=== PATIENT | male | born 1955 | race Caucasian/White ===

== ENCOUNTER → 2017-08-16 08:59 | Outpatient (CLI) | payer OTHER, SELFPAY ==
[2017-08-16 10:54] LABS: Microalbumin,Random Urine 39.2 mg/L (NO RANGE EST.); Microalbumin:Creatinine Ratio 13.2 mg/g CRE (<30 mg/g CRE)
[2017-08-16 10:55] LABS: Red Blood Count 5.01 M/mm3 (4.6-6.2); White Blood Count 6.4 K/mm3 (4.4-11.0)
[2017-08-16 10:56] LABS: Absolute Lymphocyte Count 1.86 X10^3/ul (0.83-4.51); Basophil# 0.02 X10^3/uL; Basophil% 0.3 % (0-1); Eosinophil# 0.04 X10^3/uL; Eosinophils% 0.6 % (0-5); Hematocrit 45.2 % (40-54); Hemoglobin 15.2 g/dl (13.0-16.5); Lymphocyte # 1.86 X10^3/ul (4.0); Lymphocyte % 29.3 % (19-41); Mean Corp Hgb Conc 33.6 g/gl (32-36); Mean Corpuscular Hgb 30.3 pg (27.0-32.0); Mean Corpuscular Volume 90.2 fL (80-94); Mean Platelet Vol. 10.3 fl (6.2-12.0); Monocyte# 0.41 X10^3/uL; Monocyte% 6.5 % (0-10); Neutrophil # 4.01 X10^3/uL (2.7-7.7); Neutrophil % 63.1 % (47-70); POSITIVE COUNT NO; POSITIVE DIFFERENTIAL NO; POSITIVE MORPHOLOGY NO; Platelet Count 177 K/mm3 (150-450); RBC Distribution Width CV 13.1 % (11.6-14.6)
[2017-08-16 11:18] LABS: AST(SGOT) 310 U/L (15-37); Alanine Aminotransfer ALT/SGPT 188 U/L (16-61); Albumin, Serum 3.5 g/dL (3.2-5.0); Alkaline Phosphatase 150 U/L (45-117); Anion Gap 11 (5-15); BUN 17 mg/dL (7-18); BUN/Creat Ratio 16.2 RATIO (10-20); Calcium,Total 8.6 mg/dL (8.5-10.1); Chloride 102 mmol/L (98-107); Cholesterol 237 mg/dL (200); Creatinine, Serum 1.05 mg/dL (0.70-1.30); EST Glomerular Filtration Rate 76 mL/min (>60); Est Glom Filt Rate - Afr Amer 91 mL/min (>60); Globulin 3.4 g/dL (2.2-4.2); Glucose 99 mg/dL (74-106); High Density Lipoprotein 27 mg/dL; Potassium 3.7 mmol/L (3.5-5.1); Protein, Total 6.9 g/dL (6.4-8.2); Sodium Level 135 mmol/L (136-145); Triglycerides 1078 mg/dL
[2017-08-16 11:33] LABS: Vitamin D,25 Hydroxy 27.2 ng/mL (29.95-100.01)
== END ==
PROVIDERS: Family Provider Family Medicine; PCP Family Medicine; Visit Provider Family Medicine
DX: Z00.00 Encounter for general adult medical examination without abnormal findings (principal); J44.9 Chronic obstructive pulmonary disease, unspecified; I10 Essential (primary) hypertension; E55.9 Vitamin D deficiency, unspecified
CPT/HCPCS: 36415; 80053; 80061; 82043; 82306; 82570; 84443; 85025

== ENCOUNTER → 2018-02-03 08:20 | Outpatient (CLI) | payer OTHER, SELFPAY ==
[2018-02-03 10:15] LABS: Absolute Lymphocyte Count 2.02 X10^3/ul (0.83-4.51); Absolute Neutrophil Count 2.2 X10^3/uL (2.0-7.7); Basophil# 0.02 X10^3/uL; Basophil% 0.4 % (0-1); Eosinophil# 0.11 X10^3/uL; Eosinophils% 2.3 % (0-5); Hematocrit 46.1 % (40-54); Lymphocyte # 2.02 X10^3/ul (4.0); Lymphocyte % 41.6 % (19-41); Mean Corp Hgb Conc 34.7 g/gl (32-36); Mean Corpuscular Hgb 31.9 pg (27.0-32.0); Mean Platelet Vol. 10.6 fl (6.2-12.0); Monocyte# 0.53 X10^3/uL; Monocyte% 10.9 % (0-10); Neutrophil # 2.16 X10^3/uL (2.7-7.7); Neutrophil % 44.4 % (47-70); POSITIVE COUNT NO; POSITIVE DIFFERENTIAL NO; POSITIVE MORPHOLOGY NO; Platelet Count 216 K/mm3 (150-450); RBC Distribution Width CV 12.8 % (11.6-14.6); RBC Distribution Width SD 42.8 fl (35.1-43.9); Red Blood Count 5.01 M/mm3 (4.6-6.2); White Blood Count 4.9 K/mm3 (4.4-11.0)
[2018-02-03 10:27] LABS: ALB/GLOB Ratio 1.1 RATIO (0.9-2.4); AST(SGOT) 38 U/L (15-37); Alanine Aminotransfer ALT/SGPT 60 U/L (16-61); Albumin, Serum 3.9 g/dL (3.2-5.0); Alkaline Phosphatase 105 U/L (45-117); Anion Gap 7 (5-15); BUN 12 mg/dL (7-18); BUN/Creat Ratio 14.6 RATIO (10-20); Calcium,Total 8.8 mg/dL (8.5-10.1); Chloride 106 mmol/L (98-107); Cholesterol 210 mg/dL (200); Creatinine, Serum 0.82 mg/dL (0.70-1.30); EST Glomerular Filtration Rate 100 mL/min (>60); Est Glom Filt Rate - Afr Amer 121 mL/min (>60); Globulin 3.7 g/dL (2.2-4.2); Glucose 90 mg/dL (74-106); High Density Lipoprotein 50 mg/dL; Protein, Total 7.6 g/dL (6.4-8.2); Sodium Level 139 mmol/L (136-145); Triglycerides 409 mg/dL
[2018-02-04 15:39] LABS: Hemoglobin A1c 5.7 % (4.2-6.3)
[2018-02-06 08:05] LABS: LDL, Direct 120295 104 mg/dL (0-99)
== END ==
PROVIDERS: Family Provider Family Medicine; PCP Family Medicine; Visit Provider Family Medicine
DX: E78.1 Pure hyperglyceridemia (principal)
CPT/HCPCS: 36415; 80053; 80061; 83036; 83721; 85025

== ENCOUNTER → 2018-04-07 07:43 | Outpatient (CLI) | payer MEDICAID, SELFPAY ==
[2018-04-07 07:26] VITALS: BMI 21.4
--- NOTE | 2018-04-07 07:45 | RAD_ITS ---
STUDY: X-RAY - UNILATERAL RIBS ( LEFT ) WITH CHEST REASON FOR EXAM: Male, 62 years old. Left lower rib pain following a recent fall. TECHNIQUE - RIBS: 4 view(s) of the ribs. TECHNIQUE - CHEST: Single PA view of the chest. COMPARISON: Comparison is made with prior chest radiograph dated June 11, 1999. FINDINGS - RIBS: Normal visualized ribs without a demonstrated fracture. FINDINGS - CHEST: Stable blunting of the left costophrenic angle. There is no demonstrated pleural abnormality. Normal size heart. Normal mediastinum and kacie. Normal visualized pulmonary arteries. Normal visualized aortic arch and descending thoracic aorta. Normal visualized thoracic spine. Normal visualized ribs, clavicles, and shoulders. There is no demonstrated abnormality of the visualized soft tissue structures of the upper abdomen. RAD/Ribs Unil 2V No CXR IMPRESSION: RIBS: Normal x-ray examination of the ribs. CHEST: Stable blunting of the left costophrenic angle with mild left basilar atelectasis. Electronically Signed: Fadi Alarcon MD at 8:16 EST Tel [phone], Service support ,
--- NOTE | 2018-04-07 07:45 | RAD_ITS ---
STUDY: X-RAY CHEST REASON FOR EXAM: Male, 62 years old. Left rib pain following a fall. TECHNIQUE: PA and lateral views of the chest. COMPARISON: Comparison is made with prior study dated June 11, 2009. FINDINGS: Stable blunting of the left costophrenic angle. Minimal increased markings at the left lung base suggestive of atelectasis. There is no demonstrated pleural abnormality. Normal size heart. Normal mediastinum and kacie. Normal visualized pulmonary arteries. Normal visualized aortic arch and descending thoracic aorta. Normal visualized thoracic spine. Normal visualized ribs, clavicles, and shoulders. There is no demonstrated abnormality of the visualized soft tissue structures of the upper abdomen. RAD/Chest PA and Lateral IMPRESSION: Stable blunting of the left costophrenic angle with minimal left basilar atelectasis. Electronically Signed: Fadi Alarcon MD at 8:18 EST Tel [phone], Service support ,
--- OUTSIDE RECORDS SUMMARY | 2018-06-02 07:15 | XMS RPT_ITS ---
:1955 Author Organization OHIP Care Team Providers Name Role Phone Brock Fisher Attending Unavailable Parmjit Delaney Referring Unavailable Rhett, Parmjit Primary Care Unavailable Parmjit Delaney Attending Unavailable Parmjit Delaney Primary Care Unavailable Parmjit Delaney Attending Unavailable Rhett, Parmjit Primary Care Unavailable Rory Cabrera Attending Unavailable Parmjit Delaney Referring Unavailable Rory Cabrera Attending Unavailable Rory Cabrera Referring Unavailable Rhett Parmjit Primary Care Unavailable PROBLEMS PROBLEMS DATE TYPE CONDITION / CODE ATTENDING STATUS SOURCE 04/07/2018 Unknown S20.212A - Contusion Rory Cabrera Active [place] of left front wall of Community thorax, initial Hospital encounter / Repository S20.212A(ICD-10) 02/03/2018 Unknown E78.1 - Pure Rhett, Parmjit Active [place] hyperglyceridemia / Community E78.1(ICD-10) Hospital Repository PROCEDURES PROCEDURES No Procedure Records FoundRESULTS RESULTS URGENT CARE VISIT Observed: 04/07/2018 Status: F Source: [place] REPORT 8:29 AM [facility] REPOSITORY [facility] [address] [place] [address] OFFICE VISIT Date of Service: 04/07/18 MR#: [id number] Acct: [id number] Name: FAHAD KIRK Rep #: [id number] : 1955 Provider: Rory CALLE Age/Sex: 62/M Location: [facility] Status: Signed Intake Vital Signs04/07/18 Body Mass Index (BMI) 21.4 04/07/18 Height 5 ft 3 in 04/07/18 Weight: 121 lb 04/07/18 Body Mass Index (BMI) 21.4 04/07/18 Blood Pressure 130/84 H 04/07/18 Respiratory Rate 18 Intake Visit Reasons: RIB PAIN Chief Complaint: Left chest wall discomfort [employer] Required: No Accompanied by: other Is patient in pain?: Yes Allergies No Known Allergies Allergy (Verified 04/07/18 07:25) Medications Amlodipine Besylate [Norvasc] 5 mg PO DAILY 03/30/17 [History Confirmed 04/07/18] Aspirin [Aspirin, Baby] 81 mg PO DAILY@0800 03/30/17 [History Confirmed 04/07/18] Levalbuterol Tartrate [Levalbuterol Tartrate Hfa] 15 gm IH DAILY PRN 03/30/17 [History Confirmed 04/07/18] Levocetirizine Dihydrochloride [Xyzal] 5 mg PO DAILY 03/30/17 [History Confirmed 04/07/18] Magnesium Oxide [Magnesium] 400 mg PO DAILY 03/30/17 [History Confirmed 04/07/18] Potassium Citrate [Potassium Citrate ER] 5 meq PO DAILY 03/30/17 [History Confirmed 04/07/18] Prednisone [Deltasone] 40 mg PO DAILY 5 Days tab 03/30/17 [Rx Confirmed 04/07/18] Rosuvastatin Calcium [Crestor] 20 mg PO DAILY 03/30/17 [History Confirmed 04/07/18] Umeclidinium Hammond Inhaler [Incruse Ellipta] 62.5 mcg IH DAILY PRN 03/30/17 [History Confirmed 04/07/18] [facility] Medical History COPD (chronic obstructive pulmonary disease) (Acute) Chest pain (Acute) Heart disease (Acute) Lung disease (Acute) Shortness of breath (Acute) Hypertension (Chronic) Social History Smoking Status: Current every day smoker alcohol intake: current alcohol intake frequency: 0-2 drinks per day Alcohol type: beer HPI HPI Chief Complaint: Left chest wall discomfort Details: FAHAD KIRK, is a 62 M who presents to the office today for initial evaluation of left chest wall discomfort. Patient states 4 days ago while at home, tripping falling down steps hitting left lateral rib cage. He notes since the date of the fall he has had progressively worsening moderate severe aching discomfort to the left lateral rib cage, and wanted to have evaluated today for to ensure he does not have a broken rib. He notes pain is aggravated to touch with deep inspiration, alleviated minimally with rest and using a pillow to splint the same. He has no complaints of fever, chills, sweats, difficulty breathing/shortness of breath. He notes no other associated symptoms no other alleviating or aggravating factors. ROS Const Constitutional: No other (ROS negative x10 other than as noted above) Exam Const General: cooperative, healthy appearing, no acute distress, uncomfortable Nutritional Appearance: average body habitus Orientation: alert, awake, oriented x3 HENMT Head: normal to inspection Ears: hearing grossly normal bilaterally, external ears normal, TM's normal bilaterally, EAC's normal Nose: external nose normal, nares normal, septum normal, no nasal discharge Face and sinus: normal facial exam, face symmetric Mouth: oral mucosae normal, lip normal, tongue normal Teeth and gingiva: dentition normal, gingiva normal Throat: uvula midline, tonsils normal, posterior oropharynx normal Eyes General: appearance normal, both eyes and all related structures Neck Neck: normal visual inspection, full ROM, no lymphadenopathy, no meningeal signs, supple Neck mass: No Thyroid: thyroid normal Lymphatic: no lymphadenopathy noted Chest Chest palpation AND inspection: normal inspection of the chest, normal palpation of entire chest wall (Except left lateral rib internal grinder tender to palpation), no crepitus, other (See PLAN for x-ray interpretation) Resp Effort AND Inspection: normal respiratory effort, able to speak in complete sentences, symmetric chest movement, no cough Auscultation: Bilateral: Clear to Auscultation Cardio Palpation: normal PMI Rate: tachycardic Rhythm: regular rhythm Heart Sounds: S1 normal, S2 normal, no gallops, no murmurs, no rubs Pulses: radial pulses present GI Inspection: normal to inspection Palpation: soft, not firm, nontender, no guarding Skin General: no rashes or lesions noted, no ecchymosis, no erythema Neuro General: alert, awake, oriented x3, gait normal Cognition: normal cognition Speech: speech normal Gait: normal gait Motor: muscle tone normal throughout Sensory Exam: no sensory deficits noted Psych Appearance: grossly normal Mental Status: mental status grossly normal Mood: congruent mood Affect: normal affect Speech and Movement: speech and movement normal Attitude: cooperative Thought Process: normal Thought Content: normal Judgment: judgment good Assessment AND Plan Problems 1. Contusion of left chest wall S2 Plan 2 view chest x-ray and left rib films today = normal x-ray examination of the ribs and Stable blunting of the left costophrenic angle with mild left basilar atelectasis, per radiologist; radiologist interpretation was reviewed with patient in office today. Rest, ice, Tylenol, cough and deep breathing exercises as reinforced today. Follow-up with PCP on an as-needed basis. Patient states acknowledging understanding all the above. This note was generated with [employer] dictation software. It may contain incorrect words, spelling, and punctuation that were not noted in checking the note before signing. Orders Orders: Coding Level of Care Code Off vis,est,level 4 Diagnoses Contusion of left chest wall S2004/07/18 0829 <Electronically signed by Rory CALLE> Date Rory CALLE Cosigner Signature: Date (if applicable) CC: RIBS UNIL 2V NO Observed: 04/07/2018 Status: F Source: [place] CXR 7:45 AM [facility] REPOSITORY [facility] Imaging Services [address] [place] [address] Ribs Unil 2V No CXR MR#: [id number] Acct: [id number] Name: FAHAD KIRK Rep #: [id number] : 1955 M 62 From: Fadi Alarcon MD PCP: Parmjit Delaney MD Status: REG CLI Study: Ribs Unil 2V No CXR Date of Exam: 04/07/18 Exam# [id number] Ordering Dr: Rory Cabrera PA STUDY: X-RAY - UNILATERAL RIBS ( LEFT ) WITH CHEST REASON FOR EXAM: Male, 62 years old. Left lower rib pain following a recent fall. TECHNIQUE - RIBS: 4 view(s) of the ribs. TECHNIQUE - CHEST: Single PA view of the chest. COMPARISON: Comparison is made with prior chest radiograph dated June 11, 1999. FINDINGS - RIBS: Normal visualized ribs without a demonstrated fracture. FINDINGS - CHEST: Stable blunting of the left costophrenic angle. There is no demonstrated pleural abnormality. Normal size heart. Normal mediastinum and kacie. Normal visualized pulmonary arteries. Normal visualized aortic arch and descending thoracic aorta. Normal visualized thoracic spine. Normal visualized ribs, clavicles, and shoulders. There is no demonstrated abnormality of the visualized soft tissue structures of the upper abdomen. RAD/Ribs Unil 2V No CXR IMPRESSION: RIBS: Normal x-ray examination of the ribs. CHEST: Stable blunting of the left costophrenic angle with mild left basilar atelectasis. Electronically Signed: Fadi Alarcon MD at 8:16 EST Tel [phone], Service support , CC: Parmjit Delaney MD; Rory CALLE Senior Fund Accountant: Signed CHEST PA AND LATERAL Observed: 04/07/2018 Status: F Source: [place] 7:45 AM [facility] REPOSITORY [facility] Imaging Services [address] [place] [address] Chest PA and Lateral MR#: [id number] Acct: [id number] Name: FAHAD KIRK Rep #: [id number] : 1955 M 62 From: Fadi Alarcon MD PCP: Parmjit Delaney MD Status: REG CLI Study: Chest PA and Lateral Date of Exam: 04/07/18 Exam# [id number] Ordering Dr: Rory Cabrera STUDY: X-RAY CHEST REASON FOR EXAM: Male, 62 years old. Left rib pain following a fall. TECHNIQUE: PA and lateral views of the chest. COMPARISON: Comparison is made with prior study dated June 11, 2009. FINDINGS: Stable blunting of the left costophrenic angle. Minimal increased markings at the left lung base suggestive of atelectasis. There is no demonstrated pleural abnormality. Normal size heart. Normal mediastinum and kacie. Normal visualized pulmonary arteries. Normal visualized aortic arch and descending thoracic aorta. Normal visualized thoracic spine. Normal visualized ribs, clavicles, and shoulders. There is no demonstrated abnormality of the visualized soft tissue structures of the upper abdomen. RAD/Chest PA and Lateral IMPRESSION: Stable blunting of the left costophrenic angle with minimal left basilar atelectasis. Electronically Signed: Fadi Alarcon MD at 8:18 EST Tel [phone], Service support , CC: Parmjit Delaney MD; Rory CALLE Senior Fund Accountant: Signed HEMOGLOBIN A1C Collected: 02/04/2018 Status: F Source: [place] 8:22 AM [facility] REPOSITORY Order Comment: PLEASE ADD A1C TO BLOOD DRAWN 02/03/18 PER TYPE CODE TESTS RESULT OUT OF RANGE REFERENCE UNITS LAB L501.9985 4.2-6.3 % Normal HGB A1C 5.7 Performed By: #### L501.9985 #### [facility] [address] [place], [address] LDL, DIRECT Collected: 02/04/2018 Status: F Source: [place] 8:22 AM [facility] REPOSITORY Order Comment: PLEASE ADD DLDL TO BLOOD DRAWN 02/03/18 PER . YELLOW TOP DRAWN XTRA WITH LAB DRAW TYPE CODE TESTS RESULT OUT OF REFERENCE UNITS RANGE LAB L3300.4500 0-99 mg/dL High LDL,DIR 104 532339 Result Comment: Performed at: - [facility] [address] [id number] Photo Lab Technician: Aquilino Gómez PhD, Phone: [phone] LAB L3300.8706 . Normal Test not COMMENT performed Performed By: #### L3300.4490 #### [facility] (refer to report for specific site) refer to report for address and phone number CBC W/DIFF, AUTOMATED Collected: 02/03/2018 Status: F Source: [place] 8:22 AM [facility] REPOSITORY TYPE CODE TESTS RESULT OUT OF RANGE REFERENCE UNITS LAB L100.1000 4.4-11.0 K/mm3 Normal WBC 4.9 LAB L100.1200 4.6-6.2 M/mm3 Normal RBC 5.01 LAB L100.1300 13.0-16.5 g/dl Normal HGB 16.0 LAB L100.1400 40-54 % Normal HCT 46.1 LAB L100.1500 80-94 fL Normal MCV 92.0 LAB L100.1600 27.0-32.0 pg Normal MCH 31.9 LAB L100.1700 32-36 g/gl Normal MCHC 34.7 LAB L100.1810 11.6-14.6 % Normal RDW CV 12.8 LAB L100.1820 35.1-43.9 fl Normal RDW SD 42.8 LAB L100.1900 150-450 K/mm3 Normal PLT 216 LAB L100.2000 6.2-12.0 fl Normal MPV 10.6 LAB L100.2100 47-70 % Low NEUT% 44.4 LAB L100.2200 19-41 % High LY% 41.6 LAB L100.2300 0-10 % High MONO% 10.9 LAB L100.2400 0-5 % Normal EO% 2.3 LAB L100.2500 0-1 % Normal BASO% 0.4 LAB L100.2550 0.0-0.9 % Normal IM GRAN % 0.400 Result Comment: IG% - Immature Granulocytes (promyelocytes, myelocytes and metamyelocytes) > 1% indicates that a LEFT SHIFT is Present. LAB L100.2620 2.0-7.7 X10 3/uL Normal Absolute Neut 2.2 LAB L100.2720 0.83-4.51 X10 3/ul Normal Absolute Lymph 2.02 Performed By: #### L100.0100 #### [facility] [address] [place], [place] [address]s[place]. [place], [place], [address] COMPREHENSIVE METABOLIC Collected: 02/03/2018 Status: F Source: [facility] 8:22 AM [facility] REPOSITORY TYPE CODE TESTS RESULT OUT OF RANGE REFERENCE UNITS LAB L501.0100 74-106 mg/dL Normal GLU 90 Result Comment: Please note revised GLUCOSE reference range effective 2017. LAB L501.1000 7-18 mg/dL Normal BUN 12 LAB L501.1100 0.70-1.30 mg/dL Normal CREAT,SERUM 0.82 Result Comment: The validity of the calculated GFR AND GFRAA in patients over 70 years has not been determined. Clinical correlation is essential. LAB L501.1110 >60 mL/min Normal EST GFR 100 Result Comment: Non- GFR Calc LAB L501.1115 >60 mL/min Normal EST GFR - AA 121 Result Comment: GFR Calc LAB L501.1300 10-20 RATIO Normal BUN/CRE 14.6 LAB L501.1500 6.4-8.2 g/dL T Normal PROT 7.6 LAB L501.1800 3.2-5.0 g/dL Normal ALB 3.9 LAB L501.1950 2.2-4.2 g/dL Normal GLOB 3.7 LAB L501.2000 0.9-2.4 RATIO Normal A/G 1.1 LAB L501.2200 8.5-10.1 mg/dL CA Normal 8.8 LAB L501.4100 15-37 U/L High AST 38 LAB L501.4305 45-117 U/L Normal ALK P 105 LAB L501.4405 16-61 U/L Normal ALT 60 LAB L501.4600 0.20-1.00 mg/dL T Normal BILI 0.40 LAB L501.5300 136-145 mmol/L NA Normal 139 LAB L501.5600 3.5-5.1 mmol/L K Normal 4.0 LAB L501.5900 98-107 mmol/L CL Normal 106 LAB L501.6100 21.0-32.0 mmol/L Normal CO2 26.0 LAB L501.6200 5-15 Normal GAP 7 Performed By: #### L500.4050, L500.4100 #### [facility] [address] [place], [address] LIPID PROFILE Collected: 02/03/2018 Status: F Source: [place] 8:22 AM [facility] REPOSITORY TYPE CODE TESTS RESULT OUT OF RANGE REFERENCE UNITS LAB L501.4900 200 mg/dL High CHOL 210 Result Comment: <200 mg/dL Desirable 200-240 mg/dL Borderline >240 mg/dL High Risk LAB L501.5000 mg/dL High TRIG 409 Result Comment: The drugs N-Acetylcysteine and Metamizole may falsely depress this assay. TRIGLYCERIDE IS GREATER THAN 400 mg/dL. LDL RESULT IS INVALID AND WILL NOT BE REPORTED. Serum Triglycerides Reference Interval Normal <150 mg/dL Borderline high 150 - 199 mg/dL High 200 - 499 mg/dL Very High > or = 500 mg/dL LAB L501.6400 mg/dL Normal HDL 50 Result Comment: The drugs N-Acetylcysteine and Metamizole may falsely depress this assay. Reference Range HDL <40 mg/dL Low HDL Cholesterol HDL >or= 60 mg/dL High HDL Cholesterol LAB L501.6500 0-130 mg/dL Test Normal not performed LDL LAB L501.6600 5-40 mg/dL Test Normal not performed VLDL Performed By: #### L500.4050, L500.4100 #### [facility] [address] [place], [address] MICROALB:CREAT Collected: 08/16/2017 Status: F Source: [place] RATIO,RANDOM UR 9:00 AM [facility] REPOSITORY Order Comment: Order Date: 05/27/17 Order Info: 0779-1 - MIACRE TYPE CODE TESTS RESULT OUT OF RANGE REFERENCE UNITS LAB L501.1200 NO RANGE EST. mg/dL Normal UR CREAT 297.00 LAB L502.0500 NO RANGE EST. mg/L Normal 39.2 MICROALBUMIN ,UR LAB L502.0600 <30 mg/g CRE mg/g CRE Normal 13.2 MALB:CREAT Performed By: #### L502.0250, L100.0100, L500.4050, L500.4100, L501.9520, L506.1000 #### [facility] [address] [place], [address] CBC W/DIFF, AUTOMATED Collected: 08/16/2017 Status: F Source: [place] 9:00 AM [facility] REPOSITORY Order Comment: Order Date: 05/27/17 Order Info: 0184-1 - CBCD TYPE CODE TESTS RESULT OUT OF RANGE REFERENCE UNITS LAB L100.1000 4.4-11.0 K/mm3 Normal WBC 6.4 LAB L100.1200 4.6-6.2 M/mm3 Normal RBC 5.01 LAB L100.1300 13.0-16.5 g/dl Normal HGB 15.2 LAB L100.1400 40-54 % Normal HCT 45.2 LAB L100.1500 80-94 fL Normal MCV 90.2 LAB L100.1600 27.0-32.0 pg Normal MCH 30.3 LAB L100.1700 32-36 g/gl Normal MCHC 33.6 LAB L100.1810 11.6-14.6 % Normal RDW CV 13.1 LAB L100.1820 35.1-43.9 fl Normal RDW SD 43.0 LAB L100.1900 150-450 K/mm3 Normal PLT 177 LAB L100.2000 6.2-12.0 fl Normal MPV 10.3 LAB L100.2100 47-70 % Normal NEUT% 63.1 LAB L100.2200 19-41 % Normal LY% 29.3 LAB L100.2300 0-10 % Normal MONO% 6.5 LAB L100.2400 0-5 % Normal EO% 0.6 LAB L100.2500 0-1 % Normal BASO% 0.3 LAB L100.2550 0.0-0.9 % Normal IM GRAN % 0.200 Result Comment: IG% - Immature Granulocytes (promyelocytes, myelocytes and metamyelocytes) > 1% indicates that a LEFT SHIFT is Present. LAB L100.2620 2.0-7.7 X10 3/uL Normal Absolute Neut 4.0 LAB L100.2720 0.83-4.51 X10 3/ul Normal Absolute Lymph 1.86 Performed By: #### L502.0250, L100.0100, L500.4050, L500.4100, L501.9520, L506.1000 #### [facility] [address] [place], [address] COMPREHENSIVE METABOLIC Collected: 08/16/2017 Status: F [facility] REPOSITORY Order Comment: Order Date: 05/27/17 Order Info: [id number] - CMP Order Info: [id number] - LIPID Order Info: 3016-3 - TSH TYPE CODE TESTS RESULT OUT OF RANGE REFERENCE UNITS LAB L501.0100 74-106 mg/dL Normal GLU 99 Result Comment: Please note revised GLUCOSE reference range effective 2017. LAB L501.1000 7-18 mg/dL Normal BUN 17 LAB L501.1100 0.70-1.30 mg/dL Normal CREAT,SERUM 1.05 Result Comment: The validity of the calculated GFR AND GFRAA in patients over 70 years has not been determined. Clinical correlation is essential. LAB L501.1110 >60 mL/min Normal EST GFR 76 Result Comment: Non- GFR Calc LAB L501.1115 >60 mL/min Normal EST GFR - AA 91 Result Comment: GFR Calc LAB L501.1300 10-20 RATIO Normal BUN/CRE 16.2 LAB L501.1500 6.4-8.2 g/dL T Normal PROT 6.9 LAB L501.1800 3.2-5.0 g/dL Normal ALB 3.5 LAB L501.1950 2.2-4.2 g/dL Normal GLOB 3.4 LAB L501.2000 0.9-2.4 RATIO Normal A/G 1.0 LAB L501.2200 8.5-10.1 mg/dL CA Normal 8.6 LAB L501.4100 15-37 U/L High AST 310 Result Comment: Slight Hemolysis, Result may be falsely increased. LAB L501.4305 45-117 U/L High ALK P 150 LAB L501.4405 16-61 U/L High ALT 188 Result Comment: Please note revised ALT reference range effective 2017. LAB L501.4600 0.20-1.00 mg/dL Normal T BILI 0.50 LAB L501.5300 136-145 mmol/L Low NA 135 LAB L501.5600 3.5-5.1 mmol/L Normal K 3.7 Result Comment: Slight Hemolysis, Result may be falsely increased. LAB L501.5900 98-107 mmol/L Normal CL 102 LAB L501.6100 21.0-32.0 mmol/L Normal CO2 22.0 LAB L501.6200 5-15 Normal GAP 11 Performed By: #### L502.0250, L100.0100, L500.4050, L500.4100, L501.9520, L506.1000 #### [facility] [address] [place], [address] LIPID PROFILE Collected: 08/16/2017 Status: F Source: [place] 9:00 AM [facility] REPOSITORY Order Comment: Order Date: 05/27/17 Order Info: [id number] - CMP Order Info: [id number] - LIPID Order Info: 3016-3 - TSH TYPE CODE TESTS RESULT OUT OF RANGE REFERENCE UNITS LAB L501.4900 200 mg/dL High CHOL 237 Result Comment: <200 mg/dL Desirable 200-240 mg/dL Borderline >240 mg/dL High Risk LAB L501.5000 mg/dL High TRIG 1078 Result Comment: The drugs N-Acetylcysteine and Metamizole may falsely depress this assay. Serum Triglycerides Reference Interval Normal <150 mg/dL Borderline high 150 - 199 mg/dL High 200 - 499 mg/dL Very High > or = 500 mg/dL LAB L501.6400 mg/dL Low HDL 27 Result Comment: The drugs N-Acetylcysteine and Metamizole may falsely depress this assay. Reference Range HDL <40 mg/dL Low HDL Cholesterol HDL >or= 60 mg/dL High HDL Cholesterol LAB L501.6500 0-130 mg/dL Test Normal not performed LDL LAB L501.6600 5-40 mg/dL Test Normal not performed VLDL Performed By: #### L502.0250, L100.0100, L500.4050, L500.4100, L501.9520, L506.1000 #### [facility] [address] [place], [address] THYROID STIM HORMONE Collected: 08/16/2017 Status: F Source: [place] (TSH) 9:00 [facility] REPOSITORY Order Comment: Order Date: 05/27/17 Order Info: [id number] - CMP Order Info: [id number] - LIPID Order Info: 3016-3 - TSH TYPE CODE TESTS RESULT OUT OF RANGE REFERENCE UNITS LAB L501.9520 0.358-3.74 uIU/mL Normal TSH 3.60 Performed By: #### L502.0250, L100.0100, L500.4050, L500.4100, L501.9520, L506.1000 #### [facility] [address] [place], [address] VITAMIN D,25 HYDROXY Collected: 08/16/2017 Status: F Source: [place] 9:00 AM [facility] REPOSITORY Order Comment: Order Date: 05/27/17 Order Info: [id number] - VITD25 TYPE CODE TESTS RESULT OUT OF REFERENCE UNITS RANGE LAB L506.1000 29.95-100.01 ng/mL Low Vitamin D 27.2 25-OH Result Comment: Vitamin D 25(OH) Status Range Deficiency <20 ng/mL (50nmol/L) Insuffciency 20 - 30 ng/mL (50 - 75 nmol/L) Sufficiency 30 - 100 ng/mL (75 - 250 nmol/L) Toxicity >100 ng/mL (>250 nmol/L) Performed By: #### L502.0250, L100.0100, L500.4050, L500.4100, L501.9520, L506.1000 #### [facility] [address] [place], [place], [address] URGENT CARE VISIT Observed: 05/18/2017 Status: F Source: [place] REPORT 8:45 AM [facility]ORY [facility] [address] [place] [address] [address] [place] [address] OFFICE VISIT Date of Service: 05/18/17 MR#: [id number] Acct: [id number] Name: FAHAD KIRK Rep #: [id number] : 1955 Provider: Brock CALLE Age/Sex: 61/M Location: [facility] Status: Signed Intake Vital Signs05/18/17 Height 5 ft 3 in 05/18/17 Weight: 121 lb 05/18/17 Body Mass Index (BMI) 21.4 Intake Visit Reasons: FLU, COUGH Allergies No Known Allergies Allergy (Verified 05/18/17 08:14) Medications Amlodipine Besylate [Norvasc] 5 mg PO DAILY 03/30/17 [History Confirmed 05/18/17] Aspirin [Aspirin, Baby] 81 mg PO DAILY@0800 03/30/17 [History Confirmed 05/18/17] Levalbuterol Tartrate [Levalbuterol Tartrate Hfa] 15 gm IH DAILY PRN 03/30/17 [History Confirmed 05/18/17] Levocetirizine Dihydrochloride [Xyzal] 5 mg PO DAILY 03/30/17 [History Confirmed 05/18/17] Magnesium Oxide [Magnesium] 400 mg PO DAILY 03/30/17 [History Confirmed 05/18/17] Potassium Citrate [Potassium Citrate ER] 5 meq PO DAILY 03/30/17 [History Confirmed 05/18/17] Prednisone [Deltasone] 40 mg PO DAILY 5 Days tab 03/30/17 [Rx Confirmed 05/18/17] Rosuvastatin Calcium [Crestor] 20 mg PO DAILY 03/30/17 [History Confirmed 05/18/17] Umeclidinium Hammond [Incruse Ellipta] 62.5 mcg IH DAILY PRN 03/30/17 [History Confirmed 05/18/17] amoxicillin 875 mg-potassium clavulanate 125 mg tablet 1 tab PO Q12H 10 Days #20 tab 05/18/17 [Rx Confirmed 05/18/17] [facility] Medical History Sinusitis, acute (Acute) COPD (chronic obstructive pulmonary disease) (Acute) Chest pain (Acute) Heart disease (Acute) Lung disease (Acute) Shortness of breath (Acute) Hypertension (Chronic) Social History Smoking Status: Current every day smoker alcohol intake: current alcohol intake frequency: 0-2 drinks per day Alcohol type: beer HPI FLU, COUGH: Details: FAHAD KIRK, is a 61 M who presents to the office today for concern for possible flu and/or sinus infection. Patient states that for the past 5 days he has had chills, sweats and body aches. He also reports having sinus pressure/pain and sinus headache which is somewhat relieved with Tylenol. Patient states that the symptoms have worsened over the past 5 days and is concerned as he has COPD. He is currently being treated for COPD by his podiatry assistant however does not want his infection to travel into his chest. He denies chest pain, shortness of breath or difficulty breathing. No nausea, vomiting, diarrhea. No other associated symptoms or alleviating/aggravating factors. ROS Const Constitutional: Positive for fever(s), chills, headache(s) and body ache; no night sweats or abnormal sleep pattern ENT ENT: Positive for headache(s), nasal congestion, sinus pressure, sinus pain and nasal discharge; no ear pain Resp Respiratory: No cough or shortness of breath Cardio Cardiology: No shortness of breath, irregular heart rhythm or fast heart rate Neuro Neurology: Positive for headache(s); no confusion Psych Psychiatric: No abnormal sleep pattern, No confusion Exam Const General: cooperative HENMT Head: normal to inspection Ears: hearing grossly normal bilaterally Nose: nasal discharge purulent Face and sinus: sinus tenderness frontal and maxillary Mouth: oral mucosae normal Throat: abnormal tonsil bilaterally, postnasal drainage Resp Effort AND Inspection: normal respiratory effort Auscultation: Bilateral: Clear to Auscultation Cardio Rate: regular rate Rhythm: regular rhythm Neuro General: alert, CN's II-XI intact bilaterally Psych Appearance: grossly normal Mental Status: mental status grossly normal Results BMSFLUAB Office Flu A AND B Negative FLU A AND B Last Edit by LUC Soto on 05/18/17 08:44 Assessment AND Plan Problems 1. Acute non-recurrent frontal sinusitis J01.10; J01.10 Status Acute Plan Negative flu test. Encouraged to get plenty of rest, drink lots of clear liquids, and use Tylenol or Ibuprofen (unless contraindicated) for fever and comfort. Patient also educated on other symptomatic management techniques. To be seen in 7-10 days if no improvement; sooner if worsening of symptoms. Patient advised of potential red flags and when appropriate report to the ED. Patient verbalized understanding of all the above. Orders Orders: Medications New: Coding Level of Care Code Off vis,new,level 3 Diagnoses Acute non-recurrent frontal sinusitis J01.10; J01.10 Sinusitis location: frontal Recurrence: non-recurrent 05/18/17 0845 <Electronically signed by Brock CALLE> Date Brock CALLE Cosigner Signature: Date (if applicable) CC: ALLERGIES ALLERGIES DATE TYPE / CODE NAME / CODE REACTION SEVERITY SOURCE 04/07/[address] [facility] Allergy/4160 Allergies/F00 [facility] [address](SNOMED [id number](RXNOR Repository CT) M) ENCOUNTERS ENCOUNTERS ADMIT/DISCHARGE ACCOUNT ADMITTING ENCOUNTER LOCATION SOURCE NUMBER CLASS 04/07/2018 [id number] [place] 0 [facility] ing:HPRAD Repository 04/07/2018/ [id number] Ambulatory BMSBuilding:B A[place] 8 0 [facility] Repository 02/03/2018 [id number] Ambulatory [place] 2 [facility] ing:MFPLAB Repository 08/16/2017 [id number] Ambulatory [place] A[place] 3 [facility] ing:MFPLAB Repository 05/18/2017/ [id number] Ambulatory BMSBuilding:Karlos Rowan 8 8 MS.NOW [facility]ly [facility] Repository PAYERS PAYERS ENCOUNTER GUARANTOR PAYER SUBSCRIBER SOURCE 04/07/2018 FAHAD Gaxiola Primary FAHAD Rowan [id number] Insurance:CARESOURCEP ABERNATHYDOB: Community GERRY olicy Number: [id number] [id number] Repository , [place] [address]Wxm: Date:2018-04-[address]ATTN: CLAIMS () [place] [address]FM: 04/07/2018 Secondary NOT GIVENUNK A[place] Insurance:SELF PAY [facility] Number: Effective Repository Date:2018-04-07 04/07/2018 FAHAD Gaxiola Primary FAHAD Rowan [id number] Insurance:CARESOURCEP ABERNATHYDOB: [facility]ly [facility] Number: [id number] [facility] [id number] Repository , [place] [address]Jnx: Date:2018-04-07[address]ATTN: CLAIMS () [place] [address]OF: 04/07/2018 Secondary NOT GIVENUNK [place] Insurance:SELF PAY [facility] Number: Effective Repository Date:2018-04-07 02/03/2018 FAHAD Gaxiola Primary FAHAD Rowan [id number] Insurance:AULTCAREPol ABERNATHYDOB: Community GERRY icy Number: [id number] Hospital [id number] Repository , [place] [address]Pge: Date:2703-18-79[address] [place] [address] () [phone]: 02/03/2018 Secondary NOT GIVENUNK [place] Insurance:SELF PAY [facility] Number: Effective Repository Date:2018-02-03 08/16/2017 FAHAD Gaxiola Primary FAHAD Rowan [id number] Insurance:AULTCAREPol ABERNATHYDOB: Community GERRY icy Number: [id number] Hospital [id number] Repository , [place] [address]Iuq: Date:7466-60-61E[phone] [place] [address] -8 () [address]UW: 08/16/2017 Secondary NOT GIVENUNK [place] Insurance:SELF PAY [facility] Number: Effective Repository Date:2017-08-16 05/18/2017 FAHAD W Primary FAHAD W [place] [id number] Insurance:AULTCAREPol ABERNATHYDOB: Community GERRY icy Number: [id number] Hospital [id number] Repository , [place] [address]Kdb: Date:9059-54-85[phone] [address], [place] -8 () [phone]: 05/18/2017 Secondary NOT GIVENUNK A[place] Insurance:SELF PAY [facility] Number: Effective Repository Date:2017-05-18
== END ==
PROVIDERS: Family Provider Family Medicine; PCP Family Medicine; Referring Provider Physician Assistant; Visit Provider Physician Assistant
DX: S20.212A Contusion of left front wall of thorax, initial encounter (principal)
CPT/HCPCS: 71046; 71100

== ENCOUNTER → 2018-06-06 11:19 | Outpatient (CLI) | payer MEDICAID, SELFPAY ==
[2018-04-07 07:26] VITALS: BMI 21.4
--- NOTE | 2018-06-06 11:41 | RAD_ITS ---
STUDY: X-RAY LEFT FOOT, FIRST TOE REASON FOR EXAM: Male, 62 years old. Hip great toe against a door jam 2 weeks ago. History of prior fractures. TECHNIQUE: 3 view(s) of the toe were obtained. COMPARISON: None. FINDINGS: Normal visualized metatarsus. Normal metatarsophalangeal (M.T.P) joint. Normal interphalangeal joint. Normal phalanges. There is no visualized fracture or dislocation. The soft tissue structures are unremarkable. RAD/Toe(s) Min 2 Views IMPRESSION: No acute fracture or dislocation. Electronically Signed: Ant Busch DO at 12:44 EST Tel [phone], Service support ,
== END ==
LOC: MTLAB 11:21 → MTRAD 11:40
PROVIDERS: Family Provider Family Medicine; PCP Family Medicine; Referring Provider Family Medicine; Visit Provider Family Medicine
DX: M79.675 Pain in left toe(s) (principal)
CPT/HCPCS: 73660

== ENCOUNTER → 2018-07-12 09:13 | Outpatient (CLI) | payer MEDICARE, BC, SELFPAY ==
[2018-04-07 07:26] VITALS: BMI 21.4
[2018-07-12 09:56] LABS: Absolute Lymphocyte Count 1.99 X10^3/ul (0.83-4.51); Absolute Neutrophil Count 3.7 X10^3/uL (2.0-7.7); Basophil# 0.02 X10^3/uL; Basophil% 0.3 % (0-1); Eosinophil# 0.12 X10^3/uL; Eosinophils% 1.8 % (0-5); Hematocrit 47.7 % (40-54); Hemoglobin 15.7 g/dl (13.0-16.5); Lymphocyte # 1.99 X10^3/ul (4.0); Lymphocyte % 30.6 % (19-41); Mean Corp Hgb Conc 32.9 g/gl (32-36); Mean Corpuscular Hgb 30.6 pg (27.0-32.0); Mean Platelet Vol. 9.8 fl (6.2-12.0); Monocyte# 0.66 X10^3/uL; Monocyte% 10.1 % (0-10); Neutrophil % 56.9 % (47-70); POSITIVE COUNT NO; POSITIVE DIFFERENTIAL NO; POSITIVE MORPHOLOGY NO; Platelet Count 306 K/mm3 (150-450); RBC Distribution Width CV 13.4 % (11.6-14.6); RBC Distribution Width SD 45.6 fl (35.1-43.9); Red Blood Count 5.13 M/mm3 (4.6-6.2); White Blood Count 6.5 K/mm3 (4.4-11.0)
[2018-07-12 10:31] LABS: PTHIN 34.9 pg/mL (18.4-80.1)
[2018-07-12 10:35] LABS: ALB/GLOB Ratio 1.3 RATIO (0.9-2.4); AST(SGOT) 22 U/L (15-37); Alanine Aminotransfer ALT/SGPT 28 U/L (16-61); Albumin, Serum 4.1 g/dL (3.2-5.0); Alkaline Phosphatase 120 U/L (45-117); Anion Gap 12 (5-15); BUN 7 mg/dL (7-18); BUN/Creat Ratio 9.5 RATIO (10-20); Calcium,Total 8.8 mg/dL (8.5-10.1); Chloride 103 mmol/L (98-107); Cholesterol 182 mg/dL (200); Creatinine, Serum 0.73 mg/dL (0.70-1.30); EST Glomerular Filtration Rate 114 mL/min (>60); Est Glom Filt Rate - Afr Amer 138 mL/min (>60); Globulin 3.2 g/dL (2.2-4.2); Glucose 100 mg/dL (74-106); High Density Lipoprotein 50 mg/dL; Protein, Total 7.3 g/dL (6.4-8.2); Sodium Level 141 mmol/L (136-145); Thyroid Stim Hormone (TSH) 3.35 uIU/mL (0.358-3.74); Triglycerides 265 mg/dL; Uric Acid 6.5 mg/dL (3.5-7.2); Very Low Density Lipoprotein 53 mg/dL (5-40)
== END ==
PROVIDERS: Family Provider Family Medicine; PCP Family Medicine; Referring Provider Family Medicine; Visit Provider Family Medicine
DX: M81.8 Other osteoporosis without current pathological fracture (principal); M25.472 Effusion, left ankle; E78.5 Hyperlipidemia, unspecified; I10 Essential (primary) hypertension
CPT/HCPCS: 36415; 80053; 80061; 82306; 83970; 84443; 84550; 85025

== ENCOUNTER → 2018-07-21 09:05 | Outpatient (CLI) | payer MEDICARE, BC, SELFPAY ==
[2018-04-07 07:26] VITALS: BMI 21.4
--- NOTE | 2018-07-21 09:11 | CDU_ITS ---
Reason For Study: dizziness Rt. Velocities/BP Lt. Velocities/BP Prox CCA 76.2/11.7 cm/sec. Prox CCA 90.9/16.4 cm/sec. Mid CCA 53.4/12.9 cm/sec. Mid CCA 105/22.9 cm/sec. Dist CCA 59.2/12.9 cm/sec. Dist CCA 87.4/20.5 cm/sec. Prox ICA 95.6/28.1 cm/sec. Prox ICA 75.0/22.3 cm/sec. Mid ICA 104/28.7 cm/sec. Mid ICA 101/27.6 cm/sec. Dist ICA 79.7/24.0 cm/sec. Dist ICA 82.1/24.6 cm/sec. Rt. ICA/CCA = 1.9. Lt. ICA/CCA = 1.0. Prox ECA 230/35.4 cm/sec. Prox ECA 106/14.7 cm/sec. Rt. Vert. 58.9/14.1 cm/sec. Lt. Vert. 55.7/16.4 cm/sec. Right Extracranial There is heterogeneous, irregular atherosclerotic plaque noted in the right common carotid artery. There is heterogeneous, irregular atherosclerotic plaque noted in the right internal carotid artery. There is heterogeneous, irregular atherosclerotic plaque noted in the right external carotid artery. Antegrade flow is noted in the right vertebral artery. Left Extracranial There is heterogeneous, irregular atherosclerotic plaque noted in the left common carotid artery. There is heterogeneous, irregular atherosclerotic plaque noted in the left internal carotid artery. There is heterogeneous, irregular atherosclerotic plaque noted in the left external carotid artery. Antegrade flow is noted in the left vertebral artery. Procedure Carotid Duplex 88951. The exam was diagnostic. Exam performed in department. Interpretation Summary The degree of stenosis in the right internal carotid artery appears to approach 50%. However, acoustic shadowing obscures visualization of a portion of the lumen of the proximal right internal carotid artery. Therefore, the degree of stenosis may be more severe, and an alternative imaging modality may be helpful. Clinical correlation is advised. Mild (<50%) stenosis left extracranial internal carotid. Flow within the vertebral arteries is antegrade bilaterally. Elevated velocities are noted in the right external carotid artery, suggesting the presence of stenosis >50%. Ordering Physician: Parmjit Delaney Performed By: Denny Santo RVT
--- NOTE | 2018-07-21 09:47 | BD_ITS ---
STUDY: DUAL ENERGY X-RAY ABSORPTIOMETRY / DXA REASON FOR EXAM: Male, 62 years old. Loss of height. TECHNIQUE: Bone Mineral Density (BMD) measurements of lumbar spine and bilateral hips were obtained. COMPARISON: Comparison is made with prior examination December 19, 2013. FINDINGS: Lumbar Spine (L1-L4): g/cm2 (1.088) / T-score (-0.9) / Z-score (-0.5) Findings are suggestive of normal bone density with a low fracture risk. Left Femur Total: g/cm2 (0.761) / T-score (-2.4) / Z-score (-1.8) Left Femoral Neck: g/cm2 (0.692) / T-score (-2.9) / Z-score (-1.8) Right Femur Total: g/cm2 (0.740) / T-score (-2.5) / Z-score (-2.0) Right Femoral Neck: g/cm2 (0.666) / T-score (-3.1) / Z-score (-2.0) The T-Scores on the most recent prior examination were: Lumbar Spine (L1-L4): There has been improvement of bone density since the previous examination. Left Femur Total: which represents a worsening of 6.7%. Right Femur Total: which represents a worsening of 4.5%. BD/Dexa Bone Density Study IMPRESSION: The patient is considered osteoporotic as outlined below according to World Roger Organization (WHO) criteria with a high fracture risk. There has been worsening of bone density since the previous examination. Reference Information: The T-score is the number of standard deviations above or below the standard which is normal for young adults at their peak bone mineral density. The World Health Organization (WHO) interprets the T-scores as follows: Above -1 Normal bone density Between -1 and -2.5 Osteopenia Equal to / or below -2.5 Osteoporosis As a practical clinical guideline, osteopenia may be graded as follows: Mild -1 through -1.5 Moderate -1.6 through -2.0 Severe -2.1 through -2.4 The Z-score is the number of standard deviations above or below age-matched controls. A Z-score of less than -1.5 would be considered abnormal. References: 1. NIH Osteoporosis and Related Bone Diseases http://www.osteo.org 2. International Society for Clinical Densitometry http://www.iscd.org 3. National Osteoporosis Foundation http://www.nof.org Electronically Signed: Fadi Alarcon, at 10:24 EDT , Service support ,
== END ==
PROVIDERS: Family Provider Family Medicine; PCP Family Medicine; Referring Provider Family Medicine; Visit Provider Family Medicine
DX: R42 Dizziness and giddiness (principal); M81.8 Other osteoporosis without current pathological fracture
CPT/HCPCS: 77080; 93880

== ENCOUNTER → 2018-08-10 15:42 | Outpatient (CLI) | payer MEDICARE, BC, SELFPAY ==
[2018-04-07 07:26] VITALS: BMI 21.4
--- NOTE | 2018-08-10 15:44 | CT_ITS ---
STUDY: CTA OF THE BRAIN REASON FOR EXAM: Male, 63 years old. Suspected carotid stenosis. RADIATION DOSAGE (If Supplied By Facility): CTDIvol = ( 24.96 ) mGy, DLP = ( 1467.67 ) mGycm TECHNIQUE: CT angiography was performed with a multi-detector CT scanner. Data acquisition was obtained from the skull base through the vertex following intravenous administration of 100 IV Isovue 370. MIP images were reconstructed from the axial data set. Post-processing of the angiographic images was performed, with multiplanar reformation and 3D reconstruction. Individualized dose optimization techniques were used for this CT. COMPARISON: None. FINDINGS: Normal bilateral petrous carotid arteries. There is calcified plaque formation of the right cavernous carotid artery, without a cross-sectional luminal stenosis. There is calcified plaque formation of the left cavernous carotid artery, without a cross-sectional luminal stenosis. Normal right A1 segments of the anterior cerebral artery. Normal left A1 segments of the anterior cerebral artery. Normal intact anterior communicating artery (ACOM). Normal bilateral A2 segments of the anterior cerebral arteries. Normal right M1 and M2 segments of the middle cerebral arteries, with a normal M1 bifurcation. Normal left M1 and M2 segments of the middle cerebral arteries, with a normal M1 bifurcation. Normal right posterior communicating artery (PCOM). Normal left posterior communicating artery (PCOM). Normal bilateral vertebral arteries. Normal basilar artery with a normal basilar bifurcation. The visualized bilateral superior cerebellar (SCA) arteries are normal. Normal bilateral P1, P2 and visualized P3 segments of the posterior cerebral arteries. There is no demonstrated aneurysm of the [place]. Right maxillary sinus retention cyst versus polyp. IMPRESSION: No demonstrated aneurysm or hemodynamically significant stenosis. Electronically Signed: Bo Emery, at 6:14 EDT Tel , Service support , STUDY: CTA NECK WITH CONTRAST REASON FOR EXAM: Male, 63 years old. Suspected carotid stenosis RADIATION DOSAGE (If Supplied By Facility): CTDIvol = ( 24.96 ) mGy, DLP = ( 1467.67 ) mGycm TECHNIQUE: CT angiography with multi-detector data acquisition was performed from the aortic arch to the skull base following intravenous administration of 100 IV Isovue 370. MIP images were reconstructed from the axial data set. Post-processing of the angiographic images was performed, with multiplanar reformation and 3D reconstruction. Individualized dose optimization techniques were used for this CT. COMPARISON: None. FINDINGS: AORTIC ARCH: There is atherosclerotic calcific plaque formation of the aortic arch and great vessels arising from the aortic arch, without a hemodynamically significant stenosis. There is a normal origin of the brachiocephalic, left common carotid, and left subclavian arteries. RIGHT CAROTID ARTERIES: There is atherosclerotic plaque formation of the common carotid artery, but without a hemodynamically significant stenosis. There is moderate atherosclerotic plaque formation with moderate narrowing of the right carotid bulb. There is mild atherosclerotic plaque formation of the origin of the right internal carotid artery with less than 50% cross sectional diameter stenosis. Normal visualized cervical portion of the right internal carotid artery. There is moderate atherosclerotic plaque formation of the origin of the right external carotid artery with an estimated stenosis of 50-69% stenosis. LEFT CAROTID ARTERIES: There is atherosclerotic plaque formation of the common carotid artery, but without a hemodynamically significant stenosis. There is moderate atherosclerotic plaque formation with moderate narrowing of the carotid bulb. There is moderate atherosclerotic plaque formation of the origin of the left internal carotid artery with an estimated stenosis of 50-69% stenosis. Normal visualized cervical portion of the left internal carotid artery. There is mild atherosclerotic plaque formation of the origin of the left external carotid artery with less than 50% cross sectional diameter stenosis. VERTEBRAL ARTERIES: Normal bilateral vertebral arteries. CT/CTA Head W/WO Contrast IMPRESSION: Diffuse atherosclerotic disease of the carotid arteries. There is 50-69% stenosis on the left. Less than 50% stenosis on the right. There is a moderate size noncalcified plaque within the proximal right internal carotid artery. Electronically Signed: oB Emery, at 6:15 EDT Tel , Service support ,
--- NOTE | 2018-08-10 15:44 | CT_ITS ---
STUDY: CTA OF THE BRAIN REASON FOR EXAM: Male, 63 years old. Suspected carotid stenosis. RADIATION DOSAGE (If Supplied By Facility): CTDIvol = ( 24.96 ) mGy, DLP = ( 1467.67 ) mGycm TECHNIQUE: CT angiography was performed with a multi-detector CT scanner. Data acquisition was obtained from the skull base through the vertex following intravenous administration of 100 IV Isovue 370. MIP images were reconstructed from the axial data set. Post-processing of the angiographic images was performed, with multiplanar reformation and 3D reconstruction. Individualized dose optimization techniques were used for this CT. COMPARISON: None. FINDINGS: Normal bilateral petrous carotid arteries. There is calcified plaque formation of the right cavernous carotid artery, without a cross-sectional luminal stenosis. There is calcified plaque formation of the left cavernous carotid artery, without a cross-sectional luminal stenosis. Normal right A1 segments of the anterior cerebral artery. Normal left A1 segments of the anterior cerebral artery. Normal intact anterior communicating artery (ACOM). Normal bilateral A2 segments of the anterior cerebral arteries. Normal right M1 and M2 segments of the middle cerebral arteries, with a normal M1 bifurcation. Normal left M1 and M2 segments of the middle cerebral arteries, with a normal M1 bifurcation. Normal right posterior communicating artery (PCOM). Normal left posterior communicating artery (PCOM). Normal bilateral vertebral arteries. Normal basilar artery with a normal basilar bifurcation. The visualized bilateral superior cerebellar (SCA) arteries are normal. Normal bilateral P1, P2 and visualized P3 segments of the posterior cerebral arteries. There is no demonstrated aneurysm of the [place]. Right maxillary sinus retention cyst versus polyp. IMPRESSION: No demonstrated aneurysm or hemodynamically significant stenosis. Electronically Signed: Bo Emery, at 6:14 EDT Tel , Service support , STUDY: CTA NECK WITH CONTRAST REASON FOR EXAM: Male, 63 years old. Suspected carotid stenosis RADIATION DOSAGE (If Supplied By Facility): CTDIvol = ( 24.96 ) mGy, DLP = ( 1467.67 ) mGycm TECHNIQUE: CT angiography with multi-detector data acquisition was performed from the aortic arch to the skull base following intravenous administration of 100 IV Isovue 370. MIP images were reconstructed from the axial data set. Post-processing of the angiographic images was performed, with multiplanar reformation and 3D reconstruction. Individualized dose optimization techniques were used for this CT. COMPARISON: None. FINDINGS: AORTIC ARCH: There is atherosclerotic calcific plaque formation of the aortic arch and great vessels arising from the aortic arch, without a hemodynamically significant stenosis. There is a normal origin of the brachiocephalic, left common carotid, and left subclavian arteries. RIGHT CAROTID ARTERIES: There is atherosclerotic plaque formation of the common carotid artery, but without a hemodynamically significant stenosis. There is moderate atherosclerotic plaque formation with moderate narrowing of the right carotid bulb. There is mild atherosclerotic plaque formation of the origin of the right internal carotid artery with less than 50% cross sectional diameter stenosis. Normal visualized cervical portion of the right internal carotid artery. There is moderate atherosclerotic plaque formation of the origin of the right external carotid artery with an estimated stenosis of 50-69% stenosis. LEFT CAROTID ARTERIES: There is atherosclerotic plaque formation of the common carotid artery, but without a hemodynamically significant stenosis. There is moderate atherosclerotic plaque formation with moderate narrowing of the carotid bulb. There is moderate atherosclerotic plaque formation of the origin of the left internal carotid artery with an estimated stenosis of 50-69% stenosis. Normal visualized cervical portion of the left internal carotid artery. There is mild atherosclerotic plaque formation of the origin of the left external carotid artery with less than 50% cross sectional diameter stenosis. VERTEBRAL ARTERIES: Normal bilateral vertebral arteries. CT/CTA Neck W/WO Contrast IMPRESSION: Diffuse atherosclerotic disease of the carotid arteries. There is 50-69% stenosis on the left. Less than 50% stenosis on the right. There is a moderate size noncalcified plaque within the proximal right internal carotid artery. Electronically Signed: Bo Emery, at 6:15 EDT Tel , Service support ,
== END ==
PROVIDERS: Family Provider Family Medicine; PCP Family Medicine; Referring Provider Family Medicine; Visit Provider Family Medicine
DX: I65.29 Occlusion and stenosis of unspecified carotid artery (principal)
CPT/HCPCS: 70496; 70498; Q9967

== ENCOUNTER → 2018-09-22 07:22 | Outpatient (CLI) | payer MEDICARE, BC, SELFPAY ==
[2018-08-17 14:16] VITALS: BMI 21.4
--- NOTE | 2018-09-22 07:25 | CT_ITS ---
STUDY: LOW DOSE CT LUNG CANCER SCREENING REASON FOR EXAM: Male, 63 years old. 100 year history of smoking. RADIATION DOSAGE (If Supplied By Facility): CTDIvol = ( 2.01 ) mGy, DLP = ( 71.48 ) mGycm TECHNIQUE: No contrast was administered. Low dose technique was utilized (average mAS-38 and kVp 120). 1.25 mm axial source images with a slice interval of 1.25-mm were reconstructed in lung windows. 2.5 mm axial source images with a slice interval of 2.5-mm were reconstructed in lung windows. 5.0 mm axial source images with a slice interval of 5.0-mm were reconstructed in soft tissue windows. Nodule measured using lung windows on PACS and/or independent workstation with automated measurement of minimum and maximum diameter. Nodule measurement reported as average diameter rounded to the nearest whole number. Growth is defined as an increase ins size of greater than 1.5 mm. COMPARISON: None. NODULES: No suspicious nodules are seen. Total lung nodules (excluding granulomas): Emphysema: Mild emphysematous changes. Elevation of the left hemidiaphragm. There is pleural parenchymal changes at the left lung base most likely representing scarring. Endobronchial lesion: Aorta: Atherosclerotic calcific plaques. Coronary arteries: Coronary artery calcification. Heart: Unremarkable. Mediastinal nodes: Other chest and abdominal findings: CT/Low Dose CT Lung Screening IMPRESSION: Lung-RADS category 2 - Continue annual screening with LDCT in 12 months. IMPORTANT NOTES FOR USE: ACR Lung-RADS Version 1.0 Assessment Categories Release Date: September 04, 2013 Category: Coded 0-4 bases on nodule(s) with highest degree of suspicion. Negative screen is defined as categories 1 and 2; a positive screen is defined as categories 3 and 4. Category 3 and 4A nodules that are unchanged on interval CT should be coded as category 2, and individuals returned to screening in 12 months. Category 4X: Category 3 or 4 nodules with additional imaging findings that increase the suspicion of lung cancer, such as spiculation, GGN that doubles in size in 1 year, enlarged lymph notes, etc. Category Modifiers: S (significant finding unrelated to lung cancer) and C (prior history of treated lung cancer) may be added to the 0-4 Lung-RADS Electronically Signed: Fadi Alarcon, at 8:34 EDT , Service support ,
--- NOTE | 2018-09-22 07:34 | US_ITS ---
PROCEDURES: ULTRASOUND AORTA REASON FOR EXAM: Male, 63 years old. Screening for abdominal aortic aneurysm. TECHNIQUE: Ultrasound evaluation of the aorta was performed with real-time and static martinez-scale imaging. COMPARISON: None. FINDINGS: There is no elongation or tortuosity of the abdominal aorta. Aorta measures: Proximal 1.5 cm. Middle 1.7 cm. Distal 1.1 cm. Aorta measure transversely: Proximal 1.9 cm. Middle 1.6 cm. Distal 1.3 cm. The common iliac arteries were obscured due to overlying bowel gas. There is no demonstrated aneurysm.. US/Aorta IMPRESSION: Normal abdominal aorta. Electronically Signed: Fadi Alarocn, at 8:31 EDT , Service support ,
== END ==
PROVIDERS: Family Provider Family Medicine; PCP Family Medicine; Referring Provider Family Medicine; Visit Provider Family Medicine
DX: Z13.6 Encounter for screening for cardiovascular disorders (principal); Z12.2 Encounter for screening for malignant neoplasm of respiratory organs; I10 Essential (primary) hypertension; Z87.891 Personal history of nicotine dependence
CPT/HCPCS: 76775; G0297

== ENCOUNTER → 2019-04-19 16:00 | Outpatient (CLI) | payer MEDICARE, BC, SELFPAY ==
[2018-08-17 14:16] VITALS: BMI 21.4
[2019-04-19 16:04] LABS: Lyme Ab Screen Interpretation REF LAB
[2019-04-19 17:54] LABS: Absolute Lymphocyte Count 2.43 X10^3/uL (0.83-4.51); Basophil# 0.03 X10^3/uL; Basophil% 0.4 % (0-1); Eosinophil# 0.06 X10^3/uL; Eosinophils% 0.7 % (0-5); Hematocrit 45.9 % (40-54); Hemoglobin 15.8 g/dL (13.0-16.5); Lymphocyte # 2.43 X10^3/ul (4.0); Lymphocyte % 30.1 % (19-41); Mean Corp Hgb Conc 34.4 g/dL (32-36); Mean Corpuscular Hgb 31.6 pg (27.0-32.0); Mean Corpuscular Volume 91.8 fL (80-94); Mean Platelet Vol. 10.4 fl (6.2-12.0); Monocyte# 0.53 X10^3/uL; Monocyte% 6.6 % (0-10); NRBC Flagged by Analyzer 0 % (0-5); Neutrophil # 4.98 X10^3/uL (2.7-7.7); Neutrophil % 61.8 % (47-70); Platelet Count 238 K/mm3 (150-450); RBC Distribution Width CV 12.6 % (11.6-14.6); RBC Distribution Width SD 42.5 fl (35.1-43.9); White Blood Count 8.1 K/mm3 (4.4-11.0)
[2019-04-19 18:22] LABS: Vitamin B12 349 pg/mL (211-911)
[2019-04-19 18:51] LABS: ALB/GLOB Ratio 1.3 RATIO (0.9-2.4); AST(SGOT) 188 U/L (15-37); Alanine Aminotransfer ALT/SGPT 212 U/L (16-61); Albumin, Serum 4.4 g/dL (3.2-5.0); Alkaline Phosphatase 161 U/L (45-117); Anion Gap 10 (5-15); BUN 8 mg/dL (7-18); BUN/Creat Ratio 8.9 RATIO (10-20); Calcium,Total 8.8 mg/dL (8.5-10.1); Chloride 103 mmol/L (98-107); Cholesterol 218 mg/dL (200); EST Glomerular Filtration Rate 90 mL/min (>60); Est Glom Filt Rate - Afr Amer 109 mL/min (>60); Globulin 3.5 g/dL (2.2-4.2); Glucose 120 mg/dL (74-106); High Density Lipoprotein 50 mg/dL; Magnesium 2.3 mg/dL (1.6-2.6); Potassium 3.4 mmol/L (3.5-5.1); Protein, Total 7.9 g/dL (6.4-8.2); Sodium Level 138 mmol/L (136-145); Triglycerides 651 mg/dL
[2019-04-20 13:31] LABS: Hemoglobin A1c 5.5 % (4.2-6.3)
[2019-04-25 16:07] LABS: Vitamin B1, Thiamine 250.2 nmol/L (66.5-200.0)
[2019-04-25 16:25] LABS: Lyme Scn Total Ab w/Rflx <0.91 ISR (0.00-0.90)
== END ==
PROVIDERS: Family Provider Family Medicine; PCP Family Medicine; Referring Provider Family Medicine; Visit Provider Family Medicine
DX: Z00.00 Encounter for general adult medical examination without abnormal findings (principal); J44.9 Chronic obstructive pulmonary disease, unspecified; E78.5 Hyperlipidemia, unspecified; F10.20 Alcohol dependence, uncomplicated; R25.2 Cramp and spasm
CPT/HCPCS: 36415; 80053; 80061; 82607; 82746; 83036; 83735; 84425; 85025; 86618

== ENCOUNTER → 2019-07-13 07:41 | Outpatient (CLI) | payer MEDICARE, BC, SELFPAY ==
[2018-08-17 14:16] VITALS: BMI 21.4
--- NOTE | 2019-07-13 07:42 | CDU_ITS ---
Reason For Study: carotid stenosis Rt. Velocities/BP Lt. Velocities/BP Prox CCA 74.7/14.7 cm/sec. Prox CCA 97.4/20.0 cm/sec. Mid CCA 64.3/14.7 cm/sec. Mid CCA 108.7/20.0 cm/sec. Dist CCA 55.2/10.8 cm/sec. Dist CCA 77.7/18.8 cm/sec. Prox ICA 113.8/35.3 cm/sec. Prox ICA 91.3/21.2 cm/sec. Mid ICA 133.9/33.4 cm/sec. Mid ICA 107.2/27.4 cm/sec. Dist ICA 72.8/22.5 cm/sec. Dist ICA 90.0/21.2 cm/sec. Rt. ICA/CCA = 2.1. Lt. ICA/CCA = 1.0. Prox ECA 176.9/24.1 cm/sec. Prox ECA 139.4/20.6 cm/sec. Rt. Vert. 49.5/11.4 cm/sec. Lt. Vert. 56.9/16.3 cm/sec. Right Extracranial There is heterogeneous, irregular atherosclerotic plaque noted in the right common carotid artery. There is heterogeneous, irregular atherosclerotic plaque noted in the right internal carotid artery. There is heterogeneous, irregular atherosclerotic plaque noted in the right external carotid artery. Antegrade flow is noted in the right vertebral artery. Left Extracranial There is heterogeneous, irregular atherosclerotic plaque noted in the left common carotid artery. There is heterogeneous, irregular atherosclerotic plaque noted in the left internal carotid artery. There is heterogeneous, irregular atherosclerotic plaque noted in the left external carotid artery. Antegrade flow is noted in the left vertebral artery. Procedure Carotid Duplex 71714. The exam was diagnostic. Exam performed in department. Interpretation Summary Irregular plague at the proximal right internal and external carotid arteries. 50-69% stenosis right internal carotid <50% stenosis right external carotid Irregular calcific plague left mid common carotid, proximal right internal and external carotids <50% stenosis left internal carotid <50% stenosis left external carotid Patent, antegrade vertebrals bilaterally Ordering Physician: Cayden Price Performed By: Denny Santo RVT
== END ==
PROVIDERS: PCP Family Medicine; Referring Provider Surgery; Visit Provider Surgery
DX: I65.23 Occlusion and stenosis of bilateral carotid arteries (principal)
CPT/HCPCS: 93880

== ENCOUNTER → 2019-11-17 08:15 | Outpatient (CLI) | payer MEDICARE, BC, SELFPAY ==
[2018-08-17 14:16] VITALS: BMI 21.4
[2019-11-17 09:57] LABS: Absolute Lymphocyte Count 2.18 X10^3/uL (0.83-4.51); Absolute Neutrophil Count 4.4 X10^3/uL (2.0-7.7); Basophil# 0.03 X10^3/uL; Basophil% 0.4 % (0-1); Eosinophil# 0.24 X10^3/uL; Eosinophils% 3.2 % (0-5); Hematocrit 46.5 % (40-54); Hemoglobin 15.8 g/dL (13.0-16.5); Lymphocyte # 2.18 X10^3/ul (4.0); Lymphocyte % 29.2 % (19-41); Mean Corpuscular Hgb 32.2 pg (27.0-32.0); Mean Corpuscular Volume 94.9 fL (80-94); Mean Platelet Vol. 10.1 fl (6.2-12.0); Monocyte# 0.55 X10^3/uL; Monocyte% 7.4 % (0-10); NRBC Flagged by Analyzer 0 % (0-5); Neutrophil # 4.44 X10^3/uL (2.7-7.7); Neutrophil % 59.5 % (47-70); Platelet Count 228 K/mm3 (150-450); RBC Distribution Width CV 12.8 % (11.6-14.6); White Blood Count 7.5 K/mm3 (4.4-11.0)
[2019-11-17 10:17] LABS: Vitamin D,25 Hydroxy 15.2 ng/mL
[2019-11-17 10:28] LABS: ALB/GLOB Ratio 1.1 RATIO (0.9-2.4); AST(SGOT) 69 U/L (15-37); Alanine Aminotransfer ALT/SGPT 83 U/L (16-61); Albumin, Serum 4.1 g/dL (3.2-5.0); Alkaline Phosphatase 126 U/L (45-117); Anion Gap 7 (5-15); BUN 7 mg/dL (7-18); BUN/Creat Ratio 8.9 RATIO (10-20); Calcium,Total 8.5 mg/dL (8.5-10.1); Chloride 105 mmol/L (98-107); Cholesterol 190 mg/dL (200); Creatinine, Serum 0.79 mg/dL (0.70-1.30); EST Glomerular Filtration Rate 105 mL/min (>60); Est Glom Filt Rate - Afr Amer 127 mL/min (>60); Globulin 3.6 g/dL (2.2-4.2); Glucose 104 mg/dL (74-106); High Density Lipoprotein 44 mg/dL; PSA,Total - Annual Screen 0.44 ng/mL (0.00-4.00); Potassium 3.7 mmol/L (3.5-5.1); Protein, Total 7.7 g/dL (6.4-8.2); Sodium Level 138 mmol/L (136-145); Thyroid Stim Hormone (TSH) 3.48 uIU/mL (0.358-3.74); Triglycerides 442 mg/dL
[2019-11-17 10:37] LABS: PTHIN 72.3 pg/mL (18.4-80.1)
== END ==
PROVIDERS: PCP Family Medicine; Referring Provider Family Medicine; Visit Provider Family Medicine
DX: Z00.00 Encounter for general adult medical examination without abnormal findings (principal); M81.8 Other osteoporosis without current pathological fracture; E78.5 Hyperlipidemia, unspecified; Z12.5 Encounter for screening for malignant neoplasm of prostate
CPT/HCPCS: 36415; 80053; 80061; 82306; 83970; 84153; 84443; 85025; G0103

== ENCOUNTER → 2019-11-29 13:22 | Outpatient (CLI) | payer MEDICARE, BC, SELFPAY ==
[2018-08-17 14:16] VITALS: BMI 21.4
--- NOTE | 2019-11-29 13:24 | CT_ITS ---
STUDY: LOW DOSE CT LUNG CANCER SCREENING REASON FOR EXAM: Male, 64 years old. 50 pack-year smoking history. RADIATION DOSAGE (If Supplied By Facility): CTDIvol = ( 3.02 ) mGy, DLP = ( 111.74 ) mGycm TECHNIQUE: No contrast was administered. Low dose technique was utilized (average mAS-38 and kVp 120). 1.25 mm axial source images with a slice interval of 1.25-mm were reconstructed in lung windows. 2.5 mm axial source images with a slice interval of 2.5-mm were reconstructed in lung windows. 5.0 mm axial source images with a slice interval of 5.0-mm were reconstructed in soft tissue windows. Nodule measured using lung windows on PACS and/or independent workstation with automated measurement of minimum and maximum diameter. Nodule measurement reported as average diameter rounded to the nearest whole number. Growth is defined as an increase ins size of greater than 1.5 mm. COMPARISON: September 22, 2018. NODULES: Total lung nodules (excluding granulomas): 0 Emphysema: There is diffuse emphysematous changes. Endobronchial lesion: None Aorta: Stable atherosclerotic changes without aneurysm. Coronary arteries: Stable coronary artery calcifications. Heart: Normal in size. Pulmonary artery: Normal Mediastinal nodes: None Other chest and abdominal findings: Degenerative changes of the thoracic spine. CT/Low Dose CT Lung Screening IMPRESSION: Lung-RADS category 1 - Continue annual screening with LDCT in 12 months. IMPORTANT NOTES FOR USE: ACR Lung-RADS Version 1.0 Assessment Categories Release Date: September 04, 2013 Category: Coded 0-4 bases on nodule(s) with highest degree of suspicion. Negative screen is defined as categories 1 and 2; a positive screen is defined as categories 3 and 4. Category 3 and 4A nodules that are unchanged on interval CT should be coded as category 2, and individuals returned to screening in 12 months. Category 4X: Category 3 or 4 nodules with additional imaging findings that increase the suspicion of lung cancer, such as spiculation, GGN that doubles in size in 1 year, enlarged lymph notes, etc. Category Modifiers: S (significant finding unrelated to lung cancer) and C (prior history of treated lung cancer) may be added to the 0-4 Lung-RADS Electronically Signed: Ant Busch DO at 17:55 EDT Tel [phone], Service support ,
== END ==
PROVIDERS: PCP Family Medicine; Referring Provider Family Medicine; Visit Provider Family Medicine
DX: Z12.2 Encounter for screening for malignant neoplasm of respiratory organs (principal); F17.210 Nicotine dependence, cigarettes, uncomplicated
CPT/HCPCS: G0297

== ENCOUNTER 2020-06-21 08:00 | Outpatient (RCR) | payer MEDICARE, BC, SELFPAY ==
[2018-08-17 14:16] VITALS: BMI 21.4
--- NOTE | 2020-05-22 08:02 | HP.PTEVAL ---
Patient's Visit Information FAHAD KIRK is a 64 year old M referred to Physical Therapy by Dr. Parmjit Delaney MD with a diagnosis of L/S DDD, gait abnormality. Date of Evaluation: 05/22/20 Physical Therapist: Hua Balderas, PT, ATC - Visit Plan Frequency: 2-3x /Week Duration: 4-6 Weeks Plan: Pt will perform a balance performance assessment next Rx. We will incorporate those results into the Rx plan. R will consist of B LE strengthening, balance and proprio ex's, gait training, nustep, and HEP - Subjective Pt rerports he has had LBP for approximately 35 years. Pt notes he has 3 herniated discs L2-3-4. Pt reports when he first injured his LB he would get radiculopathy all the way to his L foot,and his L LE would experience cramping. 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 No recent xrays. Pt reports he does not have much pain right now, but notes he loses all feeling in his L LE. Pt reports on occasion he will bend forward, and his LB will lock up on him. Eventually it goes away. Pt notes prolonged ambulation will cause his L LE to go numb. Pt has had PT and summer child caregiver in the past, but that was a long time ago. Pt reports massaging his L LE and rest is the only thing that helps his LE to get better. 0/10 pain in LB at rest, 3/10 pain at worst. Pt reports he has had several falls in the past. Pt reports he hasnt fallen for a year now that he knows his limitations, but he notes if he bends forward to look at something on the ground, he is likely to fall forward. Pt notes he would really like to fix his equalibrium. Pt reports he gets the most dizzy if he looks to the side or if he looks upward. - Pain LBP Pain Intensity (Out of 10): 0 Pain Intensity Range: 3 - Objective Neuro: B LE sensation is WNL to light touch. B patellar reflex= 2/3. ROM: Pt is moderately limited with L SB and ext of L/S. Normal ROM with L SB and flexion. MMT: B hip flex/abd/add are all rated at 4-/5. B knee flex/ext are all 4+/5. Repeated movements: Prone lying increases back pain. SKTC/DKTC 10 sec x 3 ea. FGA: 18/30 moderate risk of falling - Balance Scores Functional Gait Assessment Score: 18 % Disability: 40.0000 - Goals Goal 1:: Decrease LBP x 50% to aid with tolerance for IADL's Goal Time Frame: 4-6 Weeks Goal 2:: Increase B LE strength x 1 grade to aid with tolerance for ambulation Goal Time Frame: 4-6 Weeks Goal 3:: Increase FGA score by 5-10 points to aid with preventing future falls Goal Time Frame: 4-6 Weeks Goal 4:: I with HEP Goal Time Frame: 4-6 Weeks - Rehabilitation Potential Physical Therapy Diagnosis: Pt has LBP, LE weakkness, and decreased balance secondary to DDD of L/S Rehabilitation Potential: Good - Anticipated Interventions Patient/Client Instruction: Educate patient on: Condition, Plan of Care For the Purpose of:: To improve self management Therapeutic Exercise to Include: Strength training, Endurance training, Balance training, Flexibilty training, Gait and locomotor training, Dynamic Lumbar Stabilization For the Purpose of:: To decrease pain, To increase ROM, To improve muscle performance and motor function Cryotherapy (ice pack, ice massage): Yes Thermo therapy (hot pack): Yes For the Purpose of:: To decrease pain Thank you for the opportunity to evaluate your patient. For Medicare and Medicare HMO plans, please review the plan of care and approve it. It will need to be FAXED BACK to us at [phone] for Medicare purposes. For Medicare only, by signing this I certify the plan of care. Please let me know if there are questions or concerns regarding this plan of care. Physician Signature: Date:
--- NOTE | 2020-05-27 08:43 | HP.PTCOM_ITS ---
PT Communication Note 05/27/[address] Parmjit Delaney MD , Thank you for the referral of Brian to [facility] for balance assessment. I have enclosed a copy of the results for your review. In summation, he scored slow ont he backwards portion of the Motor Control Test. He scored slightly deficient on vestibular and visual parts of Sensory Organiza tion test. He score poorly on forward weight shifting. With these results in mind, his plan of care willc ontinue 2-3x/week for 4-6 weeks for strengthening and adding balance exercises. Please do not hesitate to call if there are questions regarding his therapy. Sincerely, Parmjit Dunne DPT, OCS, CSCS Contact Information
--- NOTE | 2020-06-21 08:28 | HP.PTDCSUM ---
It has been my pleasure to treat FAHAD KIRK referred by Dr. Parmjit Delaney MD, with the diagnosis of L/S DDD, gait abnormality for a total of 12 visit(s). Discharge Date: Please see the following information for a summary of their discharge status. Subjective: Pt reports no LBP today. Feels ready for discharge LBP Pain Intensity (Out of 10): 0 % Improvement: 85 Objective/Function: 0/10 LBP. B LE strength 5/5 throughout. Pt is I with HEP. FGA= 25/30. Pt has achieved all Rx goals Goal 1:: Decrease LBP x 50% to aid with tolerance for IADL's Goal Progress: Goal Met Goal 2:: Increase B LE strength x 1 grade to aid with tolerance for ambulation Goal Progress: Goal Met Goal 3:: Increase FGA score by 5-10 points to aid with preventing future falls Goal 4:: I with HEP Goal Progress: Goal Met Plan: Discharge If there are questions or concerns regarding this patient's physical therapy, please feel free to call me at [phone]. Thank you for the referral of this patient. Sincerely, Hua Balderas, PT, ATC
== END 2020-06-21 10:12 | disposition home or self-care (01) ==
LOC: PT 08:00
PROVIDERS: PCP Family Medicine; Referring Provider Family Medicine; Visit Provider Family Medicine
DX: M53.80 Other specified dorsopathies, site unspecified (principal); R20.2 Paresthesia of skin; R26.9 Unspecified abnormalities of gait and mobility
CPT/HCPCS: 97110; 97161; 97164; 97750

== ENCOUNTER → 2020-07-25 11:26 | Outpatient (CLI) | payer MEDICARE, BC, SELFPAY ==
[2018-08-17 14:16] VITALS: BMI 21.4
[2020-07-25 14:58] LABS: Absolute Lymphocyte Count 2.35 X10^3/uL (0.83-4.51); Absolute Neutrophil Count 6.7 X10^3/uL (2.0-7.7); Basophil# 0.04 X10^3/uL; Basophil% 0.4 % (0-1); Eosinophil# 0.11 X10^3/uL; Eosinophils% 1.1 % (0-5); Hematocrit 46.2 % (40-54); Hemoglobin 15.7 g/dL (13.0-16.5); Lymphocyte # 2.35 X10^3/ul (4.0); Lymphocyte % 23.9 % (19-41); Mean Corpuscular Hgb 31.8 pg (27.0-32.0); Mean Corpuscular Volume 93.5 fL (80-94); Mean Platelet Vol. 10.4 fl (6.2-12.0); Monocyte# 0.59 X10^3/uL; NRBC Flagged by Analyzer 0 % (0-5); Neutrophil # 6.69 X10^3/uL (2.7-7.7); Neutrophil % 68.2 % (47-70); Platelet Count 239 K/mm3 (150-450); RBC Distribution Width CV 12.6 % (11.6-14.6); RBC Distribution Width SD 43.2 fl (35.1-43.9); Red Blood Count 4.94 M/mm3 (4.6-6.2); White Blood Count 9.8 K/mm3 (4.4-11.0)
[2020-07-25 15:28] LABS: Hemoglobin A1c 5.5 % (3.8-5.6)
[2020-07-25 15:31] LABS: ALB/GLOB Ratio 1.3 RATIO (0.9-2.4); AST(SGOT) 69 U/L (15-37); Alanine Aminotransfer ALT/SGPT 88 U/L (16-61); Albumin, Serum 4.3 g/dL (3.2-5.0); Alkaline Phosphatase 122 U/L (45-117); Anion Gap 9 (5-15); BUN 6 mg/dL (7-18); BUN/Creat Ratio 7.2 RATIO (10-20); Calcium,Total 8.7 mg/dL (8.5-10.1); Chloride 104 mmol/L (98-107); Creatinine, Serum 0.84 mg/dL (0.70-1.30); EST Glomerular Filtration Rate 97 mL/min (>60); Est Glom Filt Rate - Afr Amer 118 mL/min (>60); Globulin 3.4 g/dL (2.2-4.2); Glucose 98 mg/dL (74-106); Potassium 3.1 mmol/L (3.5-5.1); Protein, Total 7.7 g/dL (6.4-8.2); Sodium Level 137 mmol/L (136-145); Thyroid Stim Hormone (TSH) 4.44 uIU/mL (0.358-3.74)
[2020-07-26 17:03] LABS: T4 Free Direct 0.65 ng/dL (0.76-1.46)
== END ==
PROVIDERS: PCP Family Medicine; Referring Provider Family Medicine; Visit Provider Family Medicine
DX: I10 Essential (primary) hypertension (principal); R73.9 Hyperglycemia, unspecified
CPT/HCPCS: 36415; 80053; 83036; 83735; 84439; 84443; 85025

== ENCOUNTER → 2020-08-07 08:56 | Outpatient (CLI) | payer MEDICARE, BC, SELFPAY ==
[2018-08-17 14:16] VITALS: BMI 21.4
--- NOTE | 2020-08-07 09:06 | US_ITS ---
STUDY: ABDOMINAL ULTRASOUND - RIGHT UPPER QUADRANT REASON FOR VISIT: Male, 65 years old ELEVATED LIVER ENZYMES TECHNIQUE: Ultrasound evaluation of the right upper quadrant was performed with real-time and static martinez-scale imaging. TECHNICAL QUALITY: Adequate. COMPARISON: None. FINDINGS: Liver: The liver measures 14 cm. There is increased echogenicity consistent with fatty infiltration. The bile ducts are within normal limits. There is hepatic color flow. The direction of portal flow is hepatopetal. There is no demonstrated mass lesion. Gallbladder: Normal distended gallbladder. The gallbladder wall measures 2.0 mm. There is a negative sonographic Tran''s sign. There is no pericholecystic fluid. There is a solitary echogenic gallstone within the gallbladder. This measures 1.3 cm x 1.4 cm x 0.9 cm. Common Bile Duct (C.B.D.): The common bile duct measures 4.9 mm. Pancreas: Normal size of the head, body and tail of the pancreas. There is normal echogenicity of the pancreas. There is no demonstrated pancreatic mass or cyst. Right Kidney: Normal size of the right kidney. The right kidney measures 9.9 cm x 4.9 cm x 3.7 cm. Normal renal cortex. The right cortex measures 1.4 cm. There is no demonstrated renal mass or cyst. There is no right hydronephrosis. IMPRESSION: Fatty infiltration of the liver. Solitary gallstone. Electronically Signed: Fadi Alarcon MD at 10:07 EDT , Service support , STUDY: ABDOMINAL ULTRASOUND - ELASTOGRAPHY REASON FOR VISIT: Male, 65 years old. Fatty infiltration of the liver. Elevated liver enzymes. TECHNIQUE: Liver stiffness measurements were obtained on a [employer] 85 ultrasound machine using a CA 1-7 probe following the SRU guidelines. 3 measurements were obtained using a 2-D-SWE method. The IQR/M was 26% suggesting a quality data set. TECHNICAL QUALITY: Adequate. COMPARISON: None. FINDINGS: Liver: Fatty infiltration of the liver. Median liver stiffness measured 11.4 kPa. US/Abdomen Limited IMPRESSION: Liver stiffness measures 11.4 kPa compatible with F3 Metavir score. This is suggestive of compensated advanced chronic liver disease. Electronically Signed: Fadi Alarcon MD at 10:12 EDT , Service support ,
== END ==
PROVIDERS: PCP Family Medicine; Referring Provider Family Medicine; Visit Provider Family Medicine
DX: R74.8 Abnormal levels of other serum enzymes (principal)
CPT/HCPCS: 76705; 76981

== ENCOUNTER → 2020-10-01 08:00 | Outpatient (CLI) | payer MEDICARE, BC, SELFPAY ==
[2020-09-16 10:25] VITALS: BMI 21.4
--- NOTE | 2020-10-01 08:01 | CDU_ITS ---
Reason For Study: carotid stenosis Rt. Velocities/BP Lt. Velocities/BP Prox CCA 77.3/8.2 cm/sec. Prox CCA 87.6/15.1 cm/sec. Mid CCA 64.3/13.4 cm/sec. Mid CCA 79.0/16.3 cm/sec. Dist CCA 60.4/10.8 cm/sec. Dist CCA 98.6/17.6 cm/sec. Prox ICA 77.7/20.0 cm/sec. Prox ICA 96.2/21.2 cm/sec. Mid ICA 141.2/31.6 cm/sec. Mid ICA 96.2/26.2 cm/sec. Dist ICA 108.3/20.6 cm/sec. Dist ICA 117.4/22.5 cm/sec. Rt. ICA/CCA = 2.2. Lt. ICA/CCA = 1.5. Prox ECA 177.7/13.3 cm/sec. Prox ECA 152.1/17.0 cm/sec. Rt. Vert. 79.1/18.8 cm/sec. Lt. Vert. 58.1/13.9 cm/sec. Right Extracranial There is heterogeneous, irregular atherosclerotic plaque noted in the right common carotid artery. There is heterogeneous, irregular atherosclerotic plaque noted in the right internal carotid artery. There is heterogeneous, irregular atherosclerotic plaque noted in the right external carotid artery. Antegrade flow is noted in the right vertebral artery. Left Extracranial There is heterogeneous, irregular atherosclerotic plaque noted in the left common carotid artery. There is heterogeneous, irregular atherosclerotic plaque noted in the left internal carotid artery. There is heterogeneous, irregular atherosclerotic plaque noted in the left external carotid artery. Antegrade flow is noted in the left vertebral artery. Procedure Carotid Duplex 79634. This is a Carotid Duplex examination using B-mode, color flow and specral Doppler. The exam was diagnostic. Exam performed in department. VL/Carotid Duplex Ultrasound Interpretation Summary Heterogenous irregular plaque at the proximal mid right internal carotid artery with 50 to 69% stenosis. Less than 50% stenosis right external carotid artery Heterogenous irregular plaque at the proximal left internal carotid artery with less than 50% stenosis Less than 50% stenosis left external carotid artery Patent and antegrade vertebral arteries bilaterally No clinically significant change from the previous examination of July 13, 2019 Ordering Physician: Tuan Foster Performed By: Denny Santo RVT
== END ==
PROVIDERS: PCP Family Medicine; Referring Provider Psychiatry & Neurology Neurology; Visit Provider Psychiatry & Neurology Neurology
DX: I65.23 Occlusion and stenosis of bilateral carotid arteries (principal)
CPT/HCPCS: 93880

== ENCOUNTER → 2020-11-07 09:00 | Outpatient (CLI) | payer MEDICARE, BC, SELFPAY ==
[2020-09-16 10:25] VITALS: BMI 21.4
[2020-11-07 10:11] LABS: Absolute Lymphocyte Count 2.17 X10^3/uL (0.83-4.51); Absolute Neutrophil Count 4.7 X10^3/uL (2.0-7.7); Basophil# 0.05 X10^3/uL; Basophil% 0.7 % (0-1); Eosinophil# 0.11 X10^3/uL; Eosinophils% 1.5 % (0-5); Hematocrit 41.4 % (40-54); Hemoglobin 14.4 g/dL (13.0-16.5); Lymphocyte # 2.17 X10^3/ul (0.83-4.51); Lymphocyte % 28.7 % (19-41); Mean Corp Hgb Conc 34.8 g/dL (32-36); Mean Corpuscular Hgb 31.4 pg (27.0-32.0); Mean Corpuscular Volume 90.4 fL (80-94); Mean Platelet Vol. 10.1 fl (6.2-12.0); Monocyte# 0.52 X10^3/uL; Monocyte% 6.9 % (0-10); NRBC Flagged by Analyzer 0 % (0-5); Neutrophil # 4.67 X10^3/uL (2.7-7.7); Neutrophil % 61.8 % (47-70); Platelet Count 229 K/mm3 (150-450); RBC Distribution Width CV 12.2 % (11.6-14.6); RBC Distribution Width SD 40.5 fl (35.1-43.9); Red Blood Count 4.58 M/mm3 (4.6-6.2); White Blood Count 7.6 K/mm3 (4.4-11.0)
[2020-11-07 10:38] LABS: ALB/GLOB Ratio 1.4 RATIO (0.9-2.4); AST(SGOT) 63 U/L (15-37); Alanine Aminotransfer ALT/SGPT 112 U/L (16-61); Albumin, Serum 4.2 g/dL (3.2-5.0); Alkaline Phosphatase 140 U/L (45-117); Anion Gap 11 (5-15); BUN 10 mg/dL (7-18); BUN/Creat Ratio 10.1 RATIO (10-20); Calcium,Total 8.8 mg/dL (8.5-10.1); Chloride 98 mmol/L (98-107); Creatinine, Serum 0.99 mg/dL (0.70-1.30); EST Glomerular Filtration Rate 80 mL/min (>60); Est Glom Filt Rate - Afr Amer 97 mL/min (>60); GGTP 404 U/L (15-85); Globulin 3.1 g/dL (2.2-4.2); Glucose 104 mg/dL (74-106); Potassium 4.2 mmol/L (3.5-5.1); Protein, Total 7.3 g/dL (6.4-8.2); Sodium Level 135 mmol/L (136-145); T4 Free Direct 0.83 ng/dL (0.76-1.46); Thyroid Stim Hormone (TSH) 1.73 uIU/mL (0.358-3.74)
== END ==
PROVIDERS: PCP Family Medicine; Visit Provider Family Medicine
DX: R74.01 Elevation of levels of liver transaminase levels (principal); E03.9 Hypothyroidism, unspecified
CPT/HCPCS: 36415; 80053; 82977; 84439; 84443; 85025

== ENCOUNTER → 2020-11-26 11:27 | Outpatient (CLI) | payer MEDICARE, BC, SELFPAY ==
[2020-11-19 08:17] VITALS: BMI 21.4
[2020-11-26 12:16] LABS: Cholesterol 193 mg/dL (200); High Density Lipoprotein 48 mg/dL; Triglycerides 403 mg/dL
== END ==
PROVIDERS: Psychiatry & Neurology Neurology; PCP Family Medicine; Visit Provider Family Medicine
DX: R74.01 Elevation of levels of liver transaminase levels (principal); I65.23 Occlusion and stenosis of bilateral carotid arteries
CPT/HCPCS: 36415; 80061; 82140

== ENCOUNTER 2021-05-30 08:51 | Outpatient (CLI) | payer MEDICARE, BC, SELFPAY ==
[2021-05-30 10:01] LABS: Absolute Lymphocyte Count 2.43 X10^3/uL (0.83-4.51); Absolute Neutrophil Count 4.6 X10^3/uL (2.0-7.7); Basophil# 0.04 X10^3/uL; Basophil% 0.5 % (0-1); Eosinophils% 3.7 % (0-5); Hematocrit 44.6 % (40-54); Hemoglobin 15.1 g/dL (13.0-16.5); Lymphocyte # 2.43 X10^3/ul (0.83-4.51); Lymphocyte % 29.9 % (19-41); Mean Corp Hgb Conc 33.9 g/dL (32-36); Mean Corpuscular Hgb 32.5 pg (27.0-32.0); Mean Corpuscular Volume 95.9 fL (80-94); Mean Platelet Vol. 10.7 fl (6.2-12.0); Monocyte# 0.68 X10^3/uL; Monocyte% 8.4 % (0-10); NRBC Flagged by Analyzer 0 % (0-5); Neutrophil # 4.64 X10^3/uL (2.7-7.7); Neutrophil % 57.1 % (47-70); Platelet Count 237 K/mm3 (150-450); RBC Distribution Width CV 12.8 % (11.6-14.6); RBC Distribution Width SD 45.4 fl (35.1-43.9); Red Blood Count 4.65 M/mm3 (4.6-6.2); White Blood Count 8.1 K/mm3 (4.4-11.0)
[2021-05-30 10:25] LABS: Microalbumin,Random Urine 26.9 mg/L (NO RANGE EST.); Microalbumin:Creatinine Ratio 32.9 mg/g CRE (<30 mg/g CRE)
[2021-05-30 10:28] LABS: ALB/GLOB Ratio 1.1 RATIO (0.9-2.4); AST(SGOT) 43 U/L (15-37); Alanine Aminotransfer ALT/SGPT 47 U/L (16-61); Albumin, Serum 3.7 g/dL (3.2-5.0); Alkaline Phosphatase 110 U/L (45-117); Anion Gap 6 (5-15); BUN 5 mg/dL (7-18); Chloride 103 mmol/L (98-107); Cholesterol 217 mg/dL (200); Creatinine, Serum 0.83 mg/dL (0.70-1.30); EST Glomerular Filtration Rate 98 mL/min (>60); Est Glom Filt Rate - Afr Amer 118 mL/min (>60); Globulin 3.5 g/dL (2.2-4.2); Glucose 106 mg/dL (74-106); High Density Lipoprotein 56 mg/dL; Potassium 3.6 mmol/L (3.5-5.1); Protein, Total 7.2 g/dL (6.4-8.2); Sodium Level 138 mmol/L (136-145); Triglycerides 338 mg/dL; Very Low Density Lipoprotein 68 mg/dL (5-40)
== END 2021-05-30 23:59 | disposition short-term general hospital (02) ==
LOC: MFPLAB 08:55
PROVIDERS: PCP Family Medicine; Referring Provider Family Medicine; Visit Provider Family Medicine
DX: I10 Essential (primary) hypertension (principal); J44.9 Chronic obstructive pulmonary disease, unspecified; E78.5 Hyperlipidemia, unspecified
CPT/HCPCS: 36415; 80053; 80061; 82043; 82570; 85025

== ENCOUNTER 2021-07-11 07:00 | Outpatient (RCR) | payer MEDICARE, BC, SELFPAY ==
--- NOTE | 2021-06-06 07:48 | HP.PTEVAL ---
Patient's Visit Information FAHAD KIRK is a 65 year old M referred to Physical Therapy by Dr. Parmjit Delaney MD with a diagnosis of frequent falls, weakness.. Date of Evaluation: 06/06/21 Physical Therapist: Parmjit Dunne, DPT, OCS, CSCS - Subjective I am falling again. has fallen 2x this month always forward. One time he tripped on a snow drift. No injuries. Had therapy for this 6-8 months ago which helped but then I became a couch potato Can lose balance bending forward. Denies neuropathy and spinning dizzyness. No pain. No cane or walker used and does not want them. Sees neurolologist who asked him to take it slow getting out of bed. Has clogged arteries in neck that don't need treatment yet. No regular exercises. Not employed. Spends day on [employer] Has steps to enter house with railing, not a problem right now. - Objective Walks I back to [facility] room and [facility] bed and chair I. Steps are reciprocal today without rail slow and some weakness apparent in hips. Bending to touch floor safely is challenging. reflexes 2/3 patella and achilles. AROM LE and UE WFL. tightness in hip flexors and HS apparent but functional. sensation LE WNL to gross light touch. Strength hips 3+ B abd and ext, 4- flexion, ankles are 4- in all directions, knees 4/5 flexion and ext. Coordination to reciprocal toe tap is mild deficits, heel monge test is good. - Balance/Special Test Scores Functional Gait Assessment Score: 23 % Disability: 23.3400 CATSIB Score (Max score 120 seconds): 91 Lower Extremity Functional Score: 44 - Goals Goal 1:: I in gym based silver sneakers and balance program for watermaster management. Goal Time Frame: 4-6 Weeks Goal 2:: Neurocom balance test and results to patient Goal Time Frame: 2 Weeks Goal 3:: FGA to limit fall risk. Goal Time Frame: 4-6 Weeks - Rehabilitation Potential Physical Therapy Diagnosis: imbalance casuing fear and danger at home. Rehabilitation Potential: Good - Anticipated Interventions Thank you for the opportunity to evaluate your patient. For Medicare and Medicare HMO plans, please review the plan of care and approve it. It will need to be FAXED BACK to us at [phone] for Medicare purposes. For Medicare only, by signing this I certify the plan of care. Please let me know if there are questions or concerns regarding this plan of care. Physician Signature: Date:
--- NOTE | 2021-06-09 07:33 | HP.PTREVAL ---
Dr. Parmjit Delaney MD, It has been my pleasure to treat FAHAD KIRK over the last 2 visits for frequent falls, weakness.. Please see the progress note below for an update on the physical therapy plan of care! Subjective: Doing Ok. Objective/Function: SOT: Preference deficits. MCT:normal. LOS:FW and L excursion deficits. All testing is improved form one year ago. L back pain may be instigator of L weight shift deificits. Plan Plan: 2x/week for 4 weeks for... please teach LE and postural ex that patient can do via silver sneakers with pics once safe. Please include foam, ec exercises for balance as safety allows as well as weight shifting exercises. I have included copies of patients balance testing for review to doctor. 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 Goal Time Frame: 4-6 Weeks Goal 2:: Neurocom balance test and results to patient Goal Time Frame: 2 Weeks Goal Progress: Goal Met Goal 3:: FGA to limit fall risk. Goal Time Frame: 4-6 Weeks Anticipated Interventions Patient/Client Instruction: Educate patient on: Condition, Plan of Care For the Purpose of:: To improve muscle performance and motor function, To increase tolerance to activity/condition/position, To improve gait and locomotor functions Therapeutic Exercise to Include: Strength training, Balance training, Gait and locomotor training For the Purpose of:: To improve gait and locomotor functions, To improve balance, To improve safety with gait Please do not hesitate to contact me at [phone] by phone or if you have questions or concerns regarding this new plan of care! Sincerely, Parmjit Dunne, MICHAELT, OCS, CSCS
--- NOTE | 2021-07-11 07:56 | HP.PTDCSUM_ITS ---
It has been my pleasure to treat FAHAD KIRK referred by Dr. Parmjit Delaney MD, with the diagnosis of frequent falls, weakness. for a total of 9 visit(s). Discharge Date: 07/11/21 Please see the following information for a summary of their discharge status. Subjective: Getting better. Feels stronger in legs. Balance feels better. No fall lately. Knows gym ex and will continue I. % Improvement: 70 Objective/Function: FGA is +5 and safe and I with gait. Pt confident continuing via workout in gy, as member. Goal 1:: I in gym based silver sneakers and balance program for care home management. Goal Progress: Goal Met Goal 2:: Neurocom balance test and results to patient Goal Progress: Goal Met Goal 3:: FGA to limit fall risk. Goal Progress: Goal Met Plan: d/c If there are questions or concerns regarding this patient's physical therapy, please feel free to call me at [phone]. Thank you for the referral of this patient. Sincerely, Parmjit Dunne, DPT, OCS, CSCS Balance/Gait/Functional tests - Balance/Special Test Scores Functional Gait Assessment Score: 28 % Disability: 6.6700 CATSIB Score (Max score 120 seconds): 91 Lower Extremity Functional Score: 53
== END 2021-07-11 10:40 | disposition home or self-care (01) ==
LOC: PT 07:00
PROVIDERS: PCP Family Medicine; Referring Provider Family Medicine; Visit Provider Family Medicine
DX: R29.898 Other symptoms and signs involving the musculoskeletal system (principal); R29.6 Repeated falls
CPT/HCPCS: 97110; 97162; 97164; 97750

== ENCOUNTER → 2022-03-03 | Outpatient (CLI) | payer MEDICARE, BC, SELFPAY ==
--- NOTE | 2022-03-03 07:58 | CDU_ITS ---
Reason For Study: Carotid Stenosis Rt. Velocities/BP Lt. Velocities/BP Prox CCA 61.0/8.1 cm/sec. Prox CCA 75.7/16.7 cm/sec. Mid CCA 48.7/11.0 cm/sec. Mid CCA 72.0/13.0 cm/sec. Dist CCA 41.2/7.2 cm/sec. Dist CCA 99.0/13.0 cm/sec. Prox ICA 138.9/32.7 cm/sec. Prox ICA 94.8/27.5 cm/sec. Mid ICA 105.2/22.3 cm/sec. Mid ICA 107.8/27.5 cm/sec. Dist ICA 75.9/22.0 cm/sec. Dist ICA 128.5/30.1 cm/sec. Rt. ICA/CCA = 2.9. Lt. ICA/CCA = 1.8. Prox ECA 157.1/14.5 cm/sec. Prox ECA 102.7/13.0 cm/sec. Rt. Vert. 55.6/10.6 cm/sec. Lt. Vert. 74.4/17.9 cm/sec. Right Extracranial There is heterogeneous, irregular atherosclerotic plaque noted in the right common carotid artery. There is heterogeneous, irregular atherosclerotic plaque noted in the right internal carotid artery. There is heterogeneous, irregular atherosclerotic plaque noted in the right external carotid artery. Antegrade flow is noted in the right vertebral artery. Left Extracranial There is heterogeneous, irregular atherosclerotic plaque noted in the left common carotid artery. There is heterogeneous, irregular atherosclerotic plaque noted in the left internal carotid artery. There is heterogeneous, irregular atherosclerotic plaque noted in the left external carotid artery. Antegrade flow is noted in the left vertebral artery. Procedure Carotid Duplex [id number]. This is a Carotid Duplex examination using B-mode, color flow and specral Doppler. The exam was diagnostic. Technically difficult studay due to calcified shadowing. Exam performed in department. VL/Carotid Duplex Ultrasound Interpretation Summary Moderate (50-69%) stenosis right extracranial internal carotid. Moderate (50-69%) stenosis left extracranial internal carotid. Patent and antegrade vertebrals bilaterally. Ordering Physician: Tuan Foster Referring Physician: Parmjit Delaney MD Performed By: Rob Sharma RVT
== END | disposition home or self-care (01) ==
LOC: CVS 07:57
PROVIDERS: PCP Family Medicine; Referring Provider Psychiatry & Neurology Neurology; Visit Provider Psychiatry & Neurology Neurology
DX: I65.23 Occlusion and stenosis of bilateral carotid arteries (principal)
CPT/HCPCS: 93880

== ENCOUNTER → 2022-06-04 | Outpatient (CLI) | payer MEDICARE, BC, SELFPAY ==
[2022-06-04 10:07] LABS: Absolute Lymphocyte Count 1.97 X10^3/uL (0.83-4.51); Basophil# 0.06 X10^3/uL; Basophil% 0.8 % (0-1); Eosinophil# 0.45 X10^3/uL; Eosinophils% 6.3 % (0-5); Hematocrit 45.7 % (40-54); Hemoglobin 15.3 g/dL (13.0-16.5); Lymphocyte # 1.97 X10^3/ul (0.83-4.51); Lymphocyte % 27.7 % (19-41); Mean Corp Hgb Conc 33.5 g/dL (32-36); Mean Corpuscular Hgb 32.1 pg (27.0-32.0); Mean Corpuscular Volume 95.8 fL (80-94); Mean Platelet Vol. 11.3 fl (6.2-12.0); Monocyte# 0.62 X10^3/uL; Monocyte% 8.7 % (0-10); NRBC Flagged by Analyzer 0 % (0-5); Neutrophil # 3.97 X10^3/uL (2.7-7.7); Neutrophil % 56.1 % (47-70); Platelet Count 224 K/mm3 (150-450); RBC Distribution Width CV 12.6 % (11.6-14.6); RBC Distribution Width SD 44.5 fl (35.1-43.9); Red Blood Count 4.77 M/mm3 (4.6-6.2); White Blood Count 7.1 K/mm3 (4.4-11.0)
[2022-06-04 10:26] LABS: Microalbumin,Random Urine 69.7 mg/L (NO RANGE EST.); Microalbumin:Creatinine Ratio 184.4 mg/g CRE (<30 mg/g CRE)
[2022-06-04 10:44] LABS: ALB/GLOB Ratio 1.2 RATIO (0.9-2.4); AST(SGOT) 37 U/L (15-37); Alanine Aminotransfer ALT/SGPT 47 U/L (16-61); Albumin, Serum 3.9 g/dL (3.2-5.0); Alkaline Phosphatase 86 U/L (45-117); Anion Gap 10 (5-15); BUN 8 mg/dL (7-18); BUN/Creat Ratio 10.2 RATIO (10-20); Calcium,Total 9.1 mg/dL (8.5-10.1); Chloride 101 mmol/L (98-107); Cholesterol 248 mg/dL (200); Creatinine, Serum 0.78 mg/dL (0.70-1.30); EST Glomerular Filtration Rate 105 mL/min (>60); Est Glom Filt Rate - Afr Amer 127 mL/min (>60); GGTP 257 U/L (15-85); Globulin 3.3 g/dL (2.2-4.2); Glucose 106 mg/dL (74-106); High Density Lipoprotein 49 mg/dL; Potassium 4.2 mmol/L (3.5-5.1); Protein, Total 7.2 g/dL (6.4-8.2); Sodium Level 139 mmol/L (136-145); Thyroid Stim Hormone (TSH) 2.34 uIU/mL (0.358-3.74); Triglycerides 543 mg/dL
== END | disposition home or self-care (01) ==
LOC: MFPLAB 08:26
PROVIDERS: PCP Family Medicine; Referring Provider Family Medicine; Visit Provider Family Medicine
DX: E78.5 Hyperlipidemia, unspecified (principal); J44.9 Chronic obstructive pulmonary disease, unspecified; E03.9 Hypothyroidism, unspecified; I10 Essential (primary) hypertension
CPT/HCPCS: 36415; 80053; 80061; 82043; 82570; 82977; 84443; 85025

== ENCOUNTER → 2022-11-03 | Outpatient (CLI) | payer MEDICARE, BC, SELFPAY ==
--- NOTE | 2022-11-03 07:51 | CDU_ITS ---
Reason For Study: carotid stenosis Rt. Velocities/BP Lt. Velocities/BP Prox CCA 70.2/6.9 cm/sec. Prox CCA 59.3/15.1 cm/sec. Mid CCA 36.2/7.8 cm/sec. Mid CCA 79.0/17.6 cm/sec. Dist CCA 37.1/8.8 cm/sec. Dist CCA 71.6/12.6 cm/sec. Prox ICA 143.0/29.8 cm/sec. Prox ICA 102.3/22.5 cm/sec. Mid ICA 106.5/24.3 cm/sec. Mid ICA 126.6/31.6 cm/sec. Dist ICA 130.2/35.3 cm/sec. Dist ICA 117.4/27.9 cm/sec. Rt. ICA/CCA = 4.0. Lt. ICA/CCA = 1.6. Prox ECA 146.7/11.5 cm/sec. Prox ECA 77.7/7.7 cm/sec. Rt. Vert. 47.0/9.0 cm/sec. Lt. Vert. 84.6/18.8 cm/sec. Right Extracranial There is heterogeneous, irregular atherosclerotic plaque noted in the right common carotid artery. There is heterogeneous, irregular atherosclerotic plaque noted in the right internal carotid artery. There is heterogeneous, irregular atherosclerotic plaque noted in the right external carotid artery. Antegrade flow is noted in the right vertebral artery. Left Extracranial There is heterogeneous, irregular atherosclerotic plaque noted in the left common carotid artery. There is heterogeneous, irregular atherosclerotic plaque noted in the left internal carotid artery. There is heterogeneous, irregular atherosclerotic plaque noted in the left external carotid artery. Antegrade flow is noted in the left vertebral artery. Procedure Carotid Duplex [id number]. This is a Carotid Duplex examination using B-mode, color flow and specral Doppler. The exam was diagnostic. Exam performed in department. VL/Carotid Duplex Ultrasound Interpretation Summary Moderate (50-69%) stenosis right extracranial internal carotid. Moderate (50-69%) stenosis left extracranial internal carotid. Patent and antegrade vertebrals bilaterally. Ordering Physician: Tuan Foster Performed By: Denny Santo RVT
== END | disposition home or self-care (01) ==
LOC: CVS 07:50
PROVIDERS: PCP Family Medicine; Referring Provider Psychiatry & Neurology Neurology; Visit Provider Psychiatry & Neurology Neurology
DX: I65.23 Occlusion and stenosis of bilateral carotid arteries (principal)
CPT/HCPCS: 93880

== ENCOUNTER → 2022-12-04 | Outpatient (CLI) | payer MEDICARE, BC, SELFPAY ==
[2022-12-04 12:47] LABS: Microalbumin,Random Urine 11.3 mg/L (NO RANGE EST.); Microalbumin:Creatinine Ratio 15.5 mg/g CRE (<30 mg/g CRE)
[2022-12-04 13:01] LABS: AST(SGOT) 43 U/L (15-37); Alanine Aminotransfer ALT/SGPT 46 U/L (16-61); Albumin, Serum 3.7 g/dL (3.2-5.0); Alkaline Phosphatase 109 U/L (45-117); Anion Gap 8 (5-15); BUN 6 mg/dL (7-18); Calcium,Total 8.7 mg/dL (8.5-10.1); Chloride 103 mmol/L (98-107); Cholesterol 167 mg/dL (200); Creatinine, Serum 0.86 mg/dL (0.70-1.30); EST Glomerular Filtration Rate 93 mL/min (>60); Est Glom Filt Rate - Afr Amer 113 mL/min (>60); Globulin 3.6 g/dL (2.2-4.2); Glucose 85 mg/dL (74-106); High Density Lipoprotein 55 mg/dL; PSA,Total - Annual Screen 0.46 ng/mL (0.00-4.00); Potassium 3.7 mmol/L (3.5-5.1); Protein, Total 7.3 g/dL (6.4-8.2); Sodium Level 138 mmol/L (136-145); Triglycerides 335 mg/dL; Very Low Density Lipoprotein 67 mg/dL (5-40)
== END | disposition home or self-care (01) ==
LOC: MFPLAB 09:47
PROVIDERS: PCP Family Medicine; Visit Provider Family Medicine
DX: Z12.5 Encounter for screening for malignant neoplasm of prostate (principal); I10 Essential (primary) hypertension; E03.9 Hypothyroidism, unspecified
CPT/HCPCS: 36415; 80053; 80061; 82043; 82570; 84153; 84443; G0103

== ENCOUNTER → 2023-01-02 | Outpatient (CLI) | payer MEDICARE, BC, SELFPAY ==
--- NOTE | 2023-01-02 08:55 | TOBX_PTH ---
PATIENT: FAHAD KIRK LOC: [facility] U#:[id number] AGE/SX: 67/M ROOM: RE01/02/[address]: Dr. Bradley Eisenberg MD : 1955 BED: DIS: 01/02/2023 SPEC #: [id number] RECD: 01/04/23 10:54 STATUS: AUDIE SIERRA #: [id number] MONIQUE: 01/02/23 08:[address]: Bradley Eisenberg DEPT: SURGICAL PATHOLOGY RECD BY: Christie Malhotra ENTERED: 01/04/23 10:55 SP TYPE: TONGUE BX OTHR DR: Dr. 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 Hyperkeratosis, and parakeratosis. Chronic inflammation. Negative for invasive carcinoma. See comment. WILFREDO:juvenal 01/05/2023 COMMENT Special stain for fungi is negative for organisms; matched control is appropriate. Clinical correlation and appropriate follow up are necessary. MICROSCOPIC DESCRIPTION Slides are reviewed. GROSS DESCRIPTION Received in fixative is one container labeled with the patient's name and designated tongue biopsy. The specimen consists of a piece of swanson soft tissue measuring 0.4 x 0.2 x 0.1 cm. The specimen is totally submitted in one cassette. / WILFREDO:juvenal 01/04/2023 TC:5 CPT: 15749, 50038
== END | disposition home or self-care (01) ==
LOC: LABSPEC 11:26
PROVIDERS: PCP Family Medicine; Visit Provider Otolaryngology
DX: K13.21 Leukoplakia of oral mucosa, including tongue (principal)
CPT/HCPCS: 88305; 88312

== ENCOUNTER 2023-01-05 07:25 | Outpatient (CLI) | payer MEDICARE, BC, SELFPAY ==
--- NOTE | 2023-01-05 07:26 | CT_ITS ---
STUDY: LOW DOSE CT LUNG CANCER SCREENING REASON FOR EXAM: Male, 67 years old. NICOTINE DEPENDENCE. 1ppd x 54 years. COPD RADIATION DOSAGE (If Supplied By Facility): CTDIvol = ( 2.01 ) mGy, DLP = ( 76.25 ) mGycm TECHNIQUE: No contrast was administered. Low dose technique was utilized (average mAS-38 and kVp 120). 1.25 mm axial source images with a slice interval of 1.25-mm were reconstructed in lung windows with coronal and sagittal reformats COMPARISON: November 29 2019, Sep 22 2018, November 27, 2014 NODULES: No suspicious nodules. Total lung nodules (excluding granulomas): None Parenchyma: Mild hyperexpansion is again seen compatible with mild emphysematous change. Unchanged mild chronic elevation of the left hemidiaphragm with unchanged mineralization along the left hemidiaphragm compared with November 27, 2019. Minimal bronchiectasis in the lower lobes. No airspace consolidation, effusion, pneumothorax. Small calcified granuloma adjacent to the descending aorta in the left upper lobe. Endobronchial lesion: No endobronchial lesion. Mild diffuse peribronchial thickening. Aorta: Aortic atherosclerosis and tortuosity without ectasia CORONARY ARTERIES: Three-vessel moderate calcified coronary atherosclerosis. Heart: No cardiomegaly. No pericardial effusion. Pulmonary artery: No main pulmonary arterial enlargement. Mediastinal nodes: No mediastinal or bulky hilar adenopathy. Other chest and abdominal findings: Unremarkable thyroid. Unremarkable esophagus. Gallbladder is distended with multiple 1.2 cm stones at the gallbladder neck. CT/Low Dose CT Lung Screening IMPRESSION: No suspicious pulmonary nodules. Mild emphysematous change similar to prior exam. Mild diffuse peribronchial thickening which can be seen with acute or chronic peribronchial inflammation. Mild basilar bronchiectasis. Distended gallbladder with multiple gallstones in the gallbladder neck. No surrounding inflammation in the study [id number]. Lung-RADS category 1 - Continue annual screening with LDCT in 12 months. IMPORTANT NOTES FOR USE: ACR Lung-RADS Version 1.1 Assessment Categories Release Date: 2018 Category: Coded 0-4 bases on nodule(s) with highest degree of suspicion. Negative screen is defined as categories 1 and 2; a positive screen is defined as categories 3 and 4. Category 3 and 4A nodules that are unchanged on interval CT should be coded as category 2, and individuals returned to screening in 12 months. Category 4X: Category 3 or 4 nodules with additional imaging findings that increase the suspicion of lung cancer, such as spiculation, GGN that doubles in size in 1 year, enlarged lymph notes, etc. Category Modifiers: S (significant finding unrelated to lung cancer) Electronically Signed: Geovany Chung MD at 9:07 EDT ,
== END 2023-01-05 23:59 | disposition home or self-care (01) ==
LOC: CT 07:25
PROVIDERS: PCP Family Medicine; Referring Provider Family Medicine; Visit Provider Family Medicine
DX: F17.210 Nicotine dependence, cigarettes, uncomplicated (principal); J44.9 Chronic obstructive pulmonary disease, unspecified
CPT/HCPCS: 71271

== ENCOUNTER → 2023-03-29 | Outpatient (CLI) | payer MEDICARE, BC, SELFPAY ==
[2023-03-29 15:31] LABS: Erythrocyte Sedimentation Rate < 1 mm/hr (0-20)
[2023-03-29 15:35] LABS: Absolute Lymphocyte Count 1.47 X10^3/uL (0.83-4.51); Absolute Neutrophil Count 4.4 X10^3/uL (2.0-7.7); Basophil# 0.03 X10^3/uL; Basophil% 0.5 % (0-1); Eosinophil# 0.07 X10^3/uL; Eosinophils% 1.1 % (0-5); Hematocrit 42.9 % (40-54); Hemoglobin 14.7 g/dL (13.0-16.5); Lymphocyte # 1.47 X10^3/ul (0.83-4.51); Lymphocyte % 23.2 % (19-41); Mean Corp Hgb Conc 34.3 g/dL (32-36); Mean Corpuscular Hgb 32.3 pg (27.0-32.0); Mean Corpuscular Volume 94.3 fL (80-94); Mean Platelet Vol. 11.2 fl (6.2-12.0); Monocyte# 0.35 X10^3/uL; Monocyte% 5.5 % (0-10); NRBC Flagged by Analyzer 0 % (0-5); Neutrophil # 4.39 X10^3/uL (2.7-7.7); Neutrophil % 69.4 % (47-70); Platelet Count 160 K/mm3 (150-450); RBC Distribution Width CV 13.6 % (11.6-14.6); RBC Distribution Width SD 47.6 fl (35.1-43.9); Red Blood Count 4.55 M/mm3 (4.6-6.2); White Blood Count 6.3 K/mm3 (4.4-11.0)
[2023-03-29 15:47] LABS: ALB/GLOB Ratio 1.2 RATIO (0.9-2.4); AST(SGOT) 757 U/L (15-37); Alanine Aminotransfer ALT/SGPT 491 U/L (16-61); Albumin, Serum 3.7 g/dL (3.2-5.0); Alkaline Phosphatase 181 U/L (45-117); Anion Gap 13 (5-15); BUN 20 mg/dL (7-18); BUN/Creat Ratio 13.5 RATIO (10-20); CRP < 2.90 mg/L (0.0-3.0); Calcium,Total 8.1 mg/dL (8.5-10.1); Chloride 95 mmol/L (98-107); Creatinine, Serum 1.48 mg/dL (0.70-1.30); EST Glomerular Filtration Rate 50 mL/min (>60); Est Glom Filt Rate - Afr Amer 61 mL/min (>60); Globulin 3.2 g/dL (2.2-4.2); Glucose 129 mg/dL (74-106); Lipase 30 U/L (13-75); Magnesium 2.2 mg/dL (1.6-2.6); Potassium 4.1 mmol/L (3.5-5.1); Protein, Total 6.9 g/dL (6.4-8.2); Sodium Level 129 mmol/L (136-145)
== END | disposition home or self-care (01) ==
LOC: MTLAB 12:53
PROVIDERS: PCP Family Medicine; Referring Provider Family Medicine; Visit Provider Family Medicine
DX: K52.9 Noninfective gastroenteritis and colitis, unspecified (principal)
CPT/HCPCS: 36415; 80053; 83690; 83735; 85025; 85652; 86140

== ENCOUNTER → 2023-04-05 | Outpatient (CLI) | payer MEDICARE, BC, SELFPAY ==
[2023-04-05 11:02] LABS: ALB/GLOB Ratio 0.9 RATIO (0.9-2.4); AST(SGOT) 45 U/L (15-37); Alanine Aminotransfer ALT/SGPT 113 U/L (16-61); Albumin, Serum 3.4 g/dL (3.2-5.0); Alkaline Phosphatase 122 U/L (45-117); Anion Gap 7 (5-15); BUN 9 mg/dL (7-18); BUN/Creat Ratio 6.9 RATIO (10-20); Calcium,Total 9.1 mg/dL (8.5-10.1); Chloride 102 mmol/L (98-107); Creatinine, Serum 1.31 mg/dL (0.70-1.30); EST Glomerular Filtration Rate 58 mL/min (>60); Est Glom Filt Rate - Afr Amer 70 mL/min (>60); Globulin 3.9 g/dL (2.2-4.2); Glucose 105 mg/dL (74-106); Potassium 4.3 mmol/L (3.5-5.1); Protein, Total 7.3 g/dL (6.4-8.2); Sodium Level 137 mmol/L (136-145)
== END | disposition home or self-care (01) ==
LOC: MTLAB 08:02
PROVIDERS: PCP Family Medicine; Referring Provider Family Medicine; Visit Provider Family Medicine
DX: K52.9 Noninfective gastroenteritis and colitis, unspecified (principal)
CPT/HCPCS: 36415; 80053

== ENCOUNTER → 2023-04-12 | Outpatient (CLI) | payer MEDICARE, BC, SELFPAY ==
[2023-04-12 12:07] LABS: AST(SGOT) 24 U/L (15-37); Alanine Aminotransfer ALT/SGPT 37 U/L (16-61); Albumin, Serum 3.6 g/dL (3.2-5.0); Alkaline Phosphatase 82 U/L (45-117); Anion Gap 11 (5-15); BUN 14 mg/dL (7-18); BUN/Creat Ratio 10.4 RATIO (10-20); Calcium,Total 9.4 mg/dL (8.5-10.1); Chloride 100 mmol/L (98-107); Cholesterol 175 mg/dL (200); Creatinine, Serum 1.34 mg/dL (0.70-1.30); EST Glomerular Filtration Rate 56 mL/min (>60); Est Glom Filt Rate - Afr Amer 68 mL/min (>60); GGTP 361 U/L (15-85); Globulin 3.7 g/dL (2.2-4.2); Glucose 111 mg/dL (74-106); High Density Lipoprotein 47 mg/dL; Potassium 4.1 mmol/L (3.5-5.1); Protein, Total 7.3 g/dL (6.4-8.2); Sodium Level 135 mmol/L (136-145); Triglycerides 263 mg/dL; Very Low Density Lipoprotein 53 mg/dL (5-40)
[2023-04-13 04:07] LABS: LDL, Direct 120295 99 mg/dL (0-99)
== END | disposition home or self-care (01) ==
LOC: MTLAB 07:37
PROVIDERS: PCP Family Medicine; Referring Provider Family Medicine; Visit Provider Family Medicine
DX: E78.5 Hyperlipidemia, unspecified (principal)
CPT/HCPCS: 36415; 80053; 80061; 82977; 83721

== ENCOUNTER → 2023-06-07 | Outpatient (CLI) | payer MEDICARE, BC, SELFPAY ==
--- NOTE | 2023-06-07 10:54 | ART_ITS ---
Reason For Study: Decreased pedal pulses Procedure A bilateral lower extremity continuous wave Doppler with analog waveform analysis,segmental pressures,and ankle brachial indexes with exercise. Left Segmental Pressures Left brachial= 138mmHg. Left thigh = 218mmHg. Left calf = 135mmHg. Left posterior tibial artery = 139mmHg. Left dorsalis pedis artery = 130mmHg. The left dorsalis pedis waveforms are triphasic. The left posterior tibial artery waveforms are triphasic. Right Segmental Pressures Right brachial= 140mmHg. Right posterior tibial artery = 140mmHg. Right dorsalis pedis artery = 135mmHg. The right dorsalis pedis waveforms are triphasic. The right posterior tibial artery waveforms are triphasic. Indices The right ankle brachial index by the dorsalis pedis is 0.96. The right ankle brachial index by the posterior tibial artery is 1.00. The right post exercise ankle brachial index is 0.73. The left ankle brachial index by the dorsalis pedis is 0.93. The left ankle brachial index by the posterior tibial artery is 0.99. The left post exercise ankle brachial index is 0.82. VL/Lower Ext Art Exam w/ Exercise Interpretation Summary Right PRIMO 1, normal. Doppler/PVR waveforms of the right leg normal at rest. Right lower extremity with abnormal response to exercise and post exercise PRIMO in the moderate category. Left PRIMO 0.99, mild arterial insufficiency. Doppler/PVR waveforms and segmental pressures reveal distal SFA/popliteal disease. Left lower extremity with abnormal response to exercise and post exercise PRIMO i n the moderate category. Ordering Physician: Parmijt Delaney Referring Physician: Parmjit Delaney MD Performed By: Rebeca Miguel RVT
== END | disposition home or self-care (01) ==
LOC: CVS 10:51
PROVIDERS: PCP Family Medicine; Referring Provider Family Medicine; Visit Provider Family Medicine
DX: I70.209 Unspecified atherosclerosis of native arteries of extremities, unspecified extremity (principal); R09.89 Other specified symptoms and signs involving the circulatory and respiratory systems
CPT/HCPCS: 93924

== ENCOUNTER 2023-07-03 11:46 | Emergency (ER) | payer MEDICARE, BC, SELFPAY ==
[2023-07-03 11:50] VITALS: BP 158/79; PULSE 63; RESP 13; TEMP 36; O2SAT 96; BMI 22.0
--- NOTE | 2023-07-03 12:05 | EKG12_ITS ---
Test Reason : CP Blood Pressure : / mmHG Vent. Rate : 062 BPM Atrial Rate : 062 BPM P-R Int : 104 ms QRS Dur : 076 ms QT Int : 430 ms P-R-T Axes : 038 052 058 degrees QTc Int : 436 ms Sinus rhythm with short OH Septal infarct , age undetermined Abnormal ECG Confirmed by MARILYN CADET, DANYELL ([id number]), supervising film or videotape editor CHRISTIE CHIRINOS ([id number]) on 07/05/2023 10:17:24 AM Referred By: Confirmed By:DANYELL SANDERS MD
--- NOTE | 2023-07-03 12:05 | RAD_ITS ---
INDICATION: chest pain EXAMINATION/TECHNIQUE: X-RAY - XR Chest 1 View COMPARISON: No relevant prior comparison study available FINDINGS: LINES/DEVICES: None. LUNGS: Elevation of the left hemidiaphragm. Mild atelectatic changes in the left lung base. Blunting of the left costophrenic angle. MEDIASTINUM AND CARDIOVASCULAR STRUCTURES: Cardiac silhouette not enlarged. Central airways and mediastinal contour are unremarkable. BONES AND SOFT TISSUES: Unremarkable. RAD/Chest 1 View (Portable) IMPRESSION: Atelectatic changes in the left lung base. Blunting of the left costophrenic angle could be small left pleural effusion. Electronically Signed: Benjy Simmons MD at 13:18 EST ,
--- NOTE | 2023-07-03 12:18 | EDS_ITS ---
HPI History of Present Illness Chief Complaint: Chest Pain Detail of Chief Complaint: Right lower rib cage pain Informant: patient Onset/Context/Timing Onset: Today Activity at onset: sudden Timing: Intermittent Quality: Positive for Stabbing Current Severity: Mild Maximum Severity: Moderate Worsened By: Movement of Torso Relieved By: Nothing Associated Symptoms: Negative for Nausea, Vomiting, Diaphoresis, Dyspnea, Cough, Fever or Lightheadedness Narrative Narrative: 67-year-old male history of alcohol use and cirrhosis and COPD. States he has right lower rib cage pain beginning around 5 AM this morning. Denies shortness of breath. Denies hemoptysis. Denies pleuritic pain. Denies any trauma to his rib cage. It was not over his central or left side of his chest. It was worse and now it is feeling better. He said when he got up from a lying position and hurt more. Prior Similar Symptoms: No Recent Illness/Hospitalization: No CVD Risk Factors: Negative for Diabetes PE Risk Factors: Negative for Recent Travel/Surgery, Recent Immobilization, Prior DVT or PE, Cancer or OCP + Smoking + >/=35 PFSH [facility] Medical History Alcohol abuse Alcoholism Carotid stenosis, bilateral Chest pain COPD (chronic obstructive pulmonary disease) Heart disease Herniated disc High cholesterol High triglycerides Hyperlipidemia Hypertension Liver disease Lung disease Shortness of breath Home Medications amlodipine 5 mg tablet 5 mg PO DAILY 03/30/17 [History Last Taken Unknown] aspirin 81 mg chewable tablet 81 mg PO DAILY@0800 03/30/17 [History Last Taken Unknown] levalbuterol tartrate 45 mcg/actuation aerosol inhaler 15 g IH DAILY PRN Wheezing 03/30/17 [History Last Taken Unknown] levocetirizine 5 mg tablet 5 mg PO DAILY 03/30/17 [History Last Taken Unknown] potassium citrate 10 mEq (1,080 mg) tablet,extended release 5 meq PO DAILY 03/30/17 [History Last Taken Unknown] rosuvastatin 20 mg tablet 20 mg PO DAILY 03/30/17 [History Last Taken Unknown] umeclidinium 62.5 mcg/actuation blister powder for inhalation 62.5 mcg IH DAILY PRN Wheezing 03/30/17 [History Last Taken Unknown] calcium carbonate 500 mg-vitamin D3 2.5 mcg (100 unit) chewable tablet 1 tab PO BID 09/11/20 [History Last Taken Unknown] irbesartan 75 mg tablet 75 mg PO DAILY 09/16/20 [History Last Taken Unknown] levothyroxine 25 mcg tablet 25 mcg PO DAILY 09/16/20 [History Last Taken Unknown] thiamine mononitrate (vit B1) 100 mg tablet 100 mg PO DAILY PRN 09/16/20 [History Last Taken Unknown] metoprolol succinate 50 mg tablet,extended release 24 hr 50 mg PO DAILY 04/07/21 [History Last Taken Unknown] propranolol 10 mg tablet 10 mg PO QAM #30 tabs 04/07/21 [Rx Last Taken Unknown] ascorbate calcium (vitamin C) 500 mg tablet 500 mg PO DAILY 08/05/21 [History Last Taken Unknown] omega 9-knz-aol-fish oil 300 mg-1,000 mg capsule,delayed release (Fish Oil) 1 cap PO BID 02/02/22 [History Last Taken Unknown] Allergy/AdvReac Type Severity Reaction Status Date / Time No Known Allergies Allergy Verified 07/03/23 11:55 Family History Brother Heart disease Myocardial infarction Father Heart disease Myocardial infarction Surgical History History of appendectomy History of cardiac catheterization History of intestinal surgery History of knee surgery Social History Smoking Status: Current every day smoker tobacco type: cigarettes Electronic Cigarette Use: not used second hand exposure: No alcohol intake: current alcohol intake frequency: 0-2 drinks per day Alcohol type: beer substance use type: marijuana what type of physical activity do you participate in: other details: gym frequency: 3-4 times per week angie/islam: Sikhism seatbelt use: always ROS ROS ED ROS Narrative Denies recent illness. Review of Systems ROS Unobtainable: Denies due to encephalopathy Constitutional Constitutional ED: Denies chills or fever(s) Eyes Eyes: Reports none Cardiovascular Cardiovascular: Reports chest pain and other Details: Right lower rib cage pain. But denies any injury. Respiratory/Chest Respiratory/Chest: Denies cough, dyspnea or dyspnea on exertion Gastrointestinal Gastrointestinal: Denies abdominal pain Genitourinary Genitourinary ED: Denies dysuria or hematuria Musculoskeletal Musculoskeletal: Denies arthralgias Integumentary Denies abscess or Abrasions Neurologic Neurologic: Denies headache(s) Psychiatric Psychiatric: Denies anxiety or depression Endocrine Endocrinology: Denies cold intolerance Hematologic/Lymphatic Hematologic/Lymphatic: Denies easy bleeding or easy bruising Allergic/Immunologic Allergic/Immunologic ED: Denies mouth swelling, tongue swelling or urticaria EXAM Physical Exam Narrative Exam Narrative: 67-year-old male no acute distress vital signs stable afebrile. Appears well lying in bed. H EENT exam unremarkable. Neck nontender no JVD. Lungs clear to auscultation bilaterally. Heart regular rhythm rate about 60 no murmur. Chest wall mild tenderness over his right lower rib cage. No crepitance or air. Noticed bruising. No bony deformity. Sternum and left chest completely nontender. Back nontender. Abdomen soft nontender normal bowel sounds no peritoneal signs. No right upper quadrant tenderness. Moving all 4 extremities. Calves are nontender without edema or cords. Neurologically he is awake and alert with no focal motor deficits. Const Vital Signs: 07/03/23 11:50 07/03/23 12:15 07/03/23 12:46 Temperature 96.8 F L Temperature Source Temporal Pulse Rate 63 86 Respiratory Rate 13 16 Blood Pressure 158/79 H 160/70 H Blood Pressure Mean 105 100 Pulse Ox 96 98 Oxygen Delivery Method Room Air Room Air Room Air 07/03/23 13:00 07/03/23 14:02 07/03/23 14:35 Temperature 97.9 F Temperature Source Pulse Rate 58 L 56 L Respiratory Rate 16 14 Blood Pressure 154/72 H 188/90 H 171/66 H Blood Pressure Mean 99 122 101 Pulse Ox 99 98 Oxygen Delivery Method Room Air Positive well nourished and well developed; Negative for obese, cachectic, contractures or unkempt General Appearance ED: well developed and NAD; Negative for unkempt, cachectic, contractures or pallor Nutritional Appearance: Negative for cachectic or obese HEENT Reports moist mucous membranes normocephalic and atraumatic; Negative for trauma or tenderness Eyes PERRL and EOMs intact bilaterally General Eye ED: Negative for pale conjunctiva or scleral icterus Neck no lymphadenopathy, supple and no JVD General: Negative for tenderness Chest Wall inspection of chest normal; Negative for palpation of chest normal Chest Narrative: Mild right lower rib cage tenderness. No crepitance. No bruising. No subcu air. No history or signs of trauma. No bony deformity. Chest: Negative for tenderness Resp normal respiratory effort and clear to auscultation bilaterally Effort and Inspection: Negative for respiratory distress Auscultation: Negative for rales, rhonchi or wheezes Cardio regular rate, regular rhythm, S1 normal heart sound, S2 normal heart sound and no murmurs Rate: Negative for bradycardia or tachycardic Peripheral Pulses: pulses 2+ throughout GI normal to inspection, nondistended, normoactive bowel sounds, soft to palpation, non-tender, non-distended and no masses Back/Spine no CVA tenderness and no thoracic nor lumbar tenderness General Back: Negative for CVA tenderness Cervical Spine: Negative for cervical spine tenderness Extremity normal to inspection General Extremety ED: Negative for edema, pulses abnormal or tenderness General Extremity: Negative for edema or pulses abnormal Neuro oriented x3 and CN's II-XII intact bilaterally Sensorium / Orientation: awake, alert, oriented to person, oriented to place and oriented to time; Negative for confused, lethargic or stuporous Motor Exam: strength 5/5 throughout Psych mental status grossly normal Appearance: Negative for unkempt Attitude: No agitated Mood & Affect: Negative for depressed, anxious or tearful Skin no rashes or lesions noted and no wounds General Skin Exam: Negative for jaundice or pallor Rashes: No rashes noted Trauma: Negative for abrasion, laceration or puncture MDM MDM MDM Narrative Medical decision making narrative: 67-year-old male with right lower rib cage chest pain. No history of DVT or PE. No risk factors. I do not think this is cardiac. It is very unlikely to be a PE. He does have some mild reproducible rib cage pain but is not exquisite. He has no history of trauma to his ribs. Undergo a cardiac workup with a D-dimer. Repeat exam at 125 and 2:29 PM. Patient is doing well. Abdomen is benign. He is really not been having any gallbladder symptoms. His right upper quadrant has no significant tenderness. No Tran sign. I discussed with him his CTA results showing a gallstone he has had that sharp another test before. He can outpatient follow-up for further evaluation if he wanted to have a cholecystectomy but he is really not been having significant symptoms with eating. He had no fever and no vomiting. Patient is comfortable being discharged home. I think the pain he has been having is his right rib. There is no signs of a PE and this is not cardiac in etiology. He has gallstones but I do not think he is got acute cholecystitis. History & Record Review Discussion w/independent historian: Patient Additional record(s) reviewed:: Prior inpatient record, Prior outpatient record, Prior ED visit and Prior labs Lab Data Attestation: I reviewed the patient's lab results. Lab results narrative: Chemistries that show a sodium 135. Gap 4. BUN and creatinine are 19 and 1.1. Glucose 105. Troponin normal at 6. D-dimer elevated 0.89. CBC normal. White count 7. H&H 14 and 43. Platelets 208. Chest x-ray unremarkable. CTA no PE but sees Gallstones and distended gallbladder. Liver enzymes are the patient's baseline. AST 97 ALT 94. They have been much higher in the past. He has a history of alcohol use. Labs: Laboratory Results - last 24 hr 07/03/23 11:37 WBC 7.0 RBC 4.76 Hgb 14.4 Hct 43.4 MCV 91.2 MCH 30.3 MCHC 33.2 RDW Std Deviation 42.8 RDW Coeff of Roro 12.8 Plt Count 208 MPV 11.3 Immature Gran % (Auto) 0.300 Neut % (Auto) 67.7 Lymph % (Auto) 19.8 [place] % (Auto) 7.2 Eos % (Auto) 4.6 Baso % (Auto) 0.4 Absolute Neuts (auto) 4.7 Absolute Lymphs (auto) 1.38 Nucleated RBC % 0 D-Dimer Quant (PE/DVT) 0.89 H* Sodium 135 L Potassium 4.1 Chloride 103 Carbon Dioxide 28.0 Anion Gap 4 L BUN 19 H Creatinine 1.18 Estim Creat Clear Calc 45.63 Est GFR (MDRD) Af Amer 79 Est GFR (MDRD) Non-Af 65 BUN/Creatinine Ratio 16.1 Glucose 105 Calcium 9.1 Total Bilirubin 0.50 Direct Bilirubin 0.21 AST 97 H ALT 94 H Alkaline Phosphatase 106 Troponin I High Sens 6 Total Protein 6.7 Albumin 3.7 Globulin 3.0 Radiography Chest X-Ray - ED: 1 View, Read by ED Physician, Heart, Lungs, Mediastinum, Bony Structures, No Acute Disease and Chronic Changes Diagnostic Testing: Clinical Impression(s) from Imaging Studies Chest X-Ray 07/03/23 12:05 IMPRESSION: Atelectatic changes in the left lung base. Blunting of the left costophrenic angle could be small left pleural effusion. Electronically Signed: Benjy Simmons MD at 13:18 EST , Chest CTA 07/03/23 12:43 IMPRESSION: 1. No evidence of pulmonary embolism. 2. Mild atelectatic changes in the left lower lung. 3. Distended gallbladder and gallstones. Electronically Signed: Benjy Simmons MD at 13:26 EST , Chest x-ray, portable, single view, interpreted by myself shows normal cardiac silhouette. Normal lung welsh. Chronic changes. No infiltrates. No p neumothorax. No obvious rib fractures. The left hemidiaphragms mildly elevated. Atelectasis in the left base. No infiltrates. No effusions. Rhythm Strip Rhythm Strip: Sinus Rhythm Rate: 62 Ectopy: None EKG Initial EKG: Attestation: I personally reviewed and interpreted this EKG as follows: Interpretation: Sinus Rhythm and No Acute Injury Pattern Comments: Normal sinus rhythm rate of 62 no acute signs of NC or ischemia. Discharge Plan Triage Chief Complaint: Chest Pain ED Provider: Lionel Ocasio Dx/Rx/DC Orders Clinical Impression: Right-sided chest wall pain, History of cirrhosis, History of gallstones Instructions: ED Chest Pain, Uncertain Cause Prescriptions: No Action thiamine mononitrate (vit B1) 100 mg tablet 100 mg PO DAILY PRN calcium carbonate-vitamin D3 500-100 mg-unit tablet,chewable 1 tab PO BID Patient Comments: TAKE ONE TABLET BY MOUTH TWICE DAILY levothyroxine 25 mcg tablet 25 mcg PO DAILY Patient Comments: TAKE 1 TABLET BY MOUTH EVERY DAY irbesartan 75 mg tablet 75 mg PO DAILY Patient Comments: TAKE 1 TABLET BY MOUTH EVERY DAY WITH SUPPER FOR BLOOD PRESSURE REDUCTION metoprolol succinate 50 mg tablet extended release 24 hr 50 mg PO DAILY propranolol 10 mg tablet 10 mg PO QAM Qty: 30 4RF ascorbate calcium (vitamin C) 500 mg tablet 500 mg PO DAILY omega 1-lmo-xew-fish oil [Fish Oil] 300-1,000 mg capsule,delayed release(DR/EC) 1 cap PO BID amlodipine 5 MG tablet 5 mg PO DAILY potassium citrate 10 MEQ tablet extended release 5 meq PO DAILY aspirin 81 MG tablet,chewable 81 mg PO DAILY@0800 rosuvastatin 20 MG tablet 20 mg PO DAILY levalbuterol tartrate 15 GM HFA aerosol inhaler 15 g IH DAILY PRN (Reason: Wheezing) levocetirizine 5 MG tablet 5 mg PO DAILY umeclidinium 62.5 MCG blister with device 62.5 mcg IH DAILY PRN (Reason: Wheezing) Primary Care Provider: Parmjit Delaney Referrals: Parmjit Delaney MD [Primary Care Provider] - As Needed Activity Restrictions/Additional Instructions: Motrin and Tylenol for pain. Follow-up with your doctor if is getting worse. Appears to be your right lower rib cage that is tender. It should get better. If you are having abdominal pain with eating it could be the gallstones but your labs for that were unremarkable. This is not your heart and is not a blood clot. Disposition Disposition: Home, Self Care
[2023-07-03 12:38] LABS: Absolute Lymphocyte Count 1.38 X10^3/uL (0.83-4.51); Absolute Neutrophil Count 4.7 X10^3/uL (2.0-7.7); Basophil# 0.03 X10^3/uL; Basophil% 0.4 % (0-1); Eosinophil# 0.32 X10^3/uL; Eosinophils% 4.6 % (0-5); Hematocrit 43.4 % (40-54); Hemoglobin 14.4 g/dL (13.0-16.5); Lymphocyte # 1.38 X10^3/ul (0.83-4.51); Lymphocyte % 19.8 % (19-41); Mean Corp Hgb Conc 33.2 g/dL (32-36); Mean Corpuscular Hgb 30.3 pg (27.0-32.0); Mean Corpuscular Volume 91.2 fL (80-94); Mean Platelet Vol. 11.3 fl (6.2-12.0); Monocyte% 7.2 % (0-10); NRBC Flagged by Analyzer 0 % (0-5); Neutrophil # 4.71 X10^3/uL (2.7-7.7); Neutrophil % 67.7 % (47-70); Platelet Count 208 K/mm3 (150-450); RBC Distribution Width CV 12.8 % (11.6-14.6); RBC Distribution Width SD 42.8 fl (35.1-43.9); Red Blood Count 4.76 M/mm3 (4.6-6.2)
[2023-07-03 12:40] LABS: D-Dimer Quantitative (DVT/PE) 0.89 FEU/ug/m (0.27-0.49)
--- NOTE | 2023-07-03 12:43 | CT_ITS ---
STUDY: CTA CHEST REASON FOR EXAM: Male, 67 years old. Right sided atypical cp w/ elevated d-dimer RADIATION DOSAGE (If Supplied By Facility): CTDIvol = ( 6.49 ) mGy, DLP = ( 206.25 ) mGycm TECHNIQUE: The examination was performed with the intravenous administration of IV 100mL [id number]-370. Post-processing of the angiographic images was performed, with multiplanar reformation and 3D reconstruction. Individualized dose optimization techniques were used for this CT. COMPARISON: Noncontrast CT scan of the chest of 01/05/2023. FINDINGS: Normal enhancement of the main pulmonary artery and right and left pulmonary arteries. Normal enhancement of the bilateral peripheral pulmonary arteries. There is no demonstrated pulmonary embolism. There is atherosclerotic calcifications and tortuosity of the aortic arch and descending thoracic aorta. There is no demonstrated aortic dissection. The distal thoracic aorta is suboptimally enhanced. Normal heart and pericardium. Normal mediastinum. Normal hilar regions. Normal visualized trachea and bronchi. The lungs are well expanded. Mild atelectatic changes in the left lung base. No focal consolidation is seen. There are no pleural effusions. Normal chest wall structures. No demonstrated acute osseous changes. The visualized portions of the upper abdomen demonstrate distended gallbladder. Gallstones. CT/CTA Chest W/WO Contrast IMPRESSION: 1. No evidence of pulmonary embolism. 2. Mild atelectatic changes in the left lower lung. 3. Distended gallbladder and gallstones. Electronically Signed: Benjy Simmons MD at 13:26 EST ,
[2023-07-03 12:44] LABS: Anion Gap 4 (5-15); BUN 19 mg/dL (7-18); BUN/Creat Ratio 16.1 RATIO (10-20); Calcium,Total 9.1 mg/dL (8.5-10.1); Chloride 103 mmol/L (98-107); Creatinine, Serum 1.18 mg/dL (0.70-1.30); EST Glomerular Filtration Rate 65 mL/min (>60); Est Glom Filt Rate - Afr Amer 79 mL/min (>60); Estimated Creatinine Clearance 45.63 ml/min; Glucose 105 mg/dL (74-106); Potassium 4.1 mmol/L (3.5-5.1); Sodium Level 135 mmol/L (136-145); Troponin-I HS 6 pg/mL (3.0-78.0)
[2023-07-03 12:46] VITALS: BP 160/70; PULSE 86; RESP 16; O2SAT 98
[2023-07-03 13:00] VITALS: BP 154/72
[2023-07-03 14:02] VITALS: BP 188/90; PULSE 58; RESP 16; O2SAT 99
[2023-07-03 14:04] LABS: AST(SGOT) 97 U/L (15-37); Alanine Aminotransfer ALT/SGPT 94 U/L (16-61); Albumin, Serum 3.7 g/dL (3.2-5.0); Alkaline Phosphatase 106 U/L (45-117); Bilirubin, Direct 0.21 mg/dL (0.00-0.30); Protein, Total 6.7 g/dL (6.4-8.2)
[2023-07-03 14:35] VITALS: BP 171/66; PULSE 56; RESP 14; TEMP 36.6; O2SAT 98
== END 2023-07-03 14:56 | disposition home or self-care (01) ==
PROVIDERS: Emergency Provider Emergency Medicine; PCP Family Medicine; Visit Provider Emergency Medicine
DX: R07.89 Other chest pain (principal); J44.9 Chronic obstructive pulmonary disease, unspecified; F17.210 Nicotine dependence, cigarettes, uncomplicated; E78.00 Pure hypercholesterolemia, unspecified; I10 Essential (primary) hypertension; Z79.899 Other long term (current) drug therapy; Z79.82 Long term (current) use of aspirin; Z90.49 Acquired absence of other specified parts of digestive tract; Z87.19 Personal history of other diseases of the digestive system
CPT/HCPCS: 71045; 71275; 80048; 80076; 84484; 85025; 85379; 93005; 99283; Q9967

== ENCOUNTER → 2023-07-06 | Outpatient (CLI) | payer MEDICARE, BC, SELFPAY ==
[2023-07-06 10:11] LABS: Absolute Lymphocyte Count 1.85 X10^3/uL (0.83-4.51); Absolute Neutrophil Count 3.9 X10^3/uL (2.0-7.7); Basophil# 0.03 X10^3/uL; Basophil% 0.4 % (0-1); Eosinophil# 0.36 X10^3/uL; Eosinophils% 5.3 % (0-5); Hemoglobin 15.1 g/dL (13.0-16.5); Lymphocyte # 1.85 X10^3/ul (0.83-4.51); Lymphocyte % 27.5 % (19-41); Mean Corp Hgb Conc 32.8 g/dL (32-36); Mean Corpuscular Hgb 30.1 pg (27.0-32.0); Mean Corpuscular Volume 91.6 fL (80-94); Monocyte# 0.58 X10^3/uL; Monocyte% 8.6 % (0-10); NRBC Flagged by Analyzer 0 % (0-5); Neutrophil # 3.89 X10^3/uL (2.7-7.7); Neutrophil % 57.9 % (47-70); Platelet Count 243 K/mm3 (150-450); RBC Distribution Width CV 13.1 % (11.6-14.6); RBC Distribution Width SD 44.2 fl (35.1-43.9); Red Blood Count 5.02 M/mm3 (4.6-6.2); White Blood Count 6.7 K/mm3 (4.4-11.0)
[2023-07-06 11:37] LABS: ALB/GLOB Ratio 1.1 RATIO (0.9-2.4); AST(SGOT) 21 U/L (15-37); Alanine Aminotransfer ALT/SGPT 45 U/L (16-61); Albumin, Serum 4.1 g/dL (3.2-5.0); Alkaline Phosphatase 103 U/L (45-117); Anion Gap 4 (5-15); BUN 17 mg/dL (7-18); BUN/Creat Ratio 12.9 RATIO (10-20); CRP 6.67 mg/L (0.0-3.0); Calcium,Total 9.7 mg/dL (8.5-10.1); Chloride 102 mmol/L (98-107); Creatinine, Serum 1.32 mg/dL (0.70-1.30); EST Glomerular Filtration Rate 57 mL/min (>60); Est Glom Filt Rate - Afr Amer 69 mL/min (>60); GGTP 92 U/L (15-85); Globulin 3.6 g/dL (2.2-4.2); Glucose 111 mg/dL (74-106); Lipase 21 U/L (13-75); Potassium 4.5 mmol/L (3.5-5.1); Protein, Total 7.7 g/dL (6.4-8.2); Sodium Level 134 mmol/L (136-145)
== END | disposition home or self-care (01) ==
LOC: MFPLAB 08:46
PROVIDERS: PCP Family Medicine; Visit Provider Family Medicine
DX: K81.0 Acute cholecystitis (principal)
CPT/HCPCS: 36415; 80053; 82977; 83690; 85025; 86140

== ENCOUNTER → 2023-10-21 | Outpatient (CLI) | payer MEDICARE, BC, SELFPAY ==
--- NOTE | 2023-10-21 07:48 | CDU_ITS ---
Reason For Study: Bilateral Carotid Stenosis Rt. Velocities/BP Lt. Velocities/BP Prox CCA 62.0/9.1 cm/sec. Prox CCA 62.0/10.0 cm/sec. Mid CCA 50.6/10.0 cm/sec. Mid CCA 58.2/13.8 cm/sec. Dist CCA 39.3/8.1 cm/sec. Dist CCA 61.0/13.8 cm/sec. Prox ICA 132.6/26.7 cm/sec. Prox ICA 94.2/26.7 cm/sec. Mid ICA 107.0/30.3 cm/sec. Mid ICA 101.6/23.0 cm/sec. Dist ICA 75.2/26.1 cm/sec. Dist ICA 119.8/24.8 cm/sec. Prox ECA 73.3/9.1 cm/sec. Prox ECA 73.2/8.4 cm/sec. Lt. Vert. 47.8/9.1 cm/sec. Lt. Vert. 40.2/10.0 cm/sec. Rt. ICA/CCA = 2.6. Lt. ICA/CCA = 2.1. Right Extracranial There is heterogeneous, irregular atherosclerotic plaque noted in the right common carotid artery. There is heterogeneous, irregular atherosclerotic plaque noted in the right internal carotid artery. The atherosclerotic plaque causes acoustic shadowing. There is heterogeneous, irregular atherosclerotic plaque noted in the right external carotid artery. Antegrade flow is noted in the right vertebral artery. Left Extracranial There is heterogeneous, irregular atherosclerotic plaque noted in the left common carotid artery. There is heterogeneous, irregular atherosclerotic plaque noted in the left internal carotid artery. The atherosclerotic plaque causes acoustic shadowing. There is heterogeneous, irregular atherosclerotic plaque noted in the left external carotid artery. Antegrade flow is noted in the left vertebral artery. Procedure Carotid Duplex 11903. This is a Carotid Duplex examination using B-mode, color flow and specral Doppler. The exam was diagnostic. Exam performed in department. VL/Carotid Duplex Ultrasound Interpretation Summary Moderate (50-69%) stenosis right extracranial internal carotid. Mild (<50%) stenosis left extracranial internal carotid. Patent and antegrade vertebrals bilaterally. Limited due to calcific shadowing, alternative imaging may be beneficial. Ordering Physician: Tuan Foster Referring Physician: Tuan Foster Performed By: Rob Sharma RVT and Student
== END | disposition home or self-care (01) ==
LOC: CVS 07:48
PROVIDERS: PCP Family Medicine; Referring Provider Psychiatry & Neurology Neurology; Visit Provider Psychiatry & Neurology Neurology
DX: I65.23 Occlusion and stenosis of bilateral carotid arteries (principal)
CPT/HCPCS: 93880

== ENCOUNTER → 2023-12-20 | Outpatient (CLI) | payer MEDICARE, BC, SELFPAY ==
[2023-12-20 10:12] LABS: Absolute Lymphocyte Count 1.85 X10^3/uL (0.83-4.51); Absolute Neutrophil Count 4.5 X10^3/uL (2.0-7.7); Basophil# 0.05 X10^3/uL; Basophil% 0.7 % (0-1); Eosinophils% 4.1 % (0-5); Hematocrit 44.4 % (40-54); Hemoglobin 14.9 g/dL (13.0-16.5); Lymphocyte # 1.85 X10^3/ul (0.83-4.51); Lymphocyte % 25.3 % (19-41); Mean Corp Hgb Conc 33.6 g/dL (32-36); Mean Corpuscular Hgb 30.8 pg (27.0-32.0); Mean Corpuscular Volume 91.9 fL (80-94); Mean Platelet Vol. 10.2 fl (6.2-12.0); Monocyte# 0.62 X10^3/uL; Monocyte% 8.5 % (0-10); NRBC Flagged by Analyzer 0 % (0-5); Neutrophil # 4.48 X10^3/uL (2.7-7.7); Neutrophil % 61.1 % (47-70); Platelet Count 269 K/mm3 (150-450); RBC Distribution Width CV 13.7 % (11.6-14.6); RBC Distribution Width SD 46.7 fl (35.1-43.9); Red Blood Count 4.83 M/mm3 (4.6-6.2); White Blood Count 7.3 K/mm3 (4.4-11.0)
[2023-12-20 12:37] LABS: ALB/GLOB Ratio 1.2 RATIO (0.9-2.4); AST(SGOT) 46 U/L (15-37); Alanine Aminotransfer ALT/SGPT 77 U/L (16-61); Alkaline Phosphatase 114 U/L (45-117); Anion Gap 4 (5-15); BUN 19 mg/dL (7-18); BUN/Creat Ratio 17.8 RATIO (10-20); Calcium,Total 9.7 mg/dL (8.5-10.1); Chloride 99 mmol/L (98-107); Cholesterol 139 mg/dL (200); Creatinine, Serum 1.07 mg/dL (0.70-1.30); EST Glomerular Filtration Rate 73 mL/min (>60); Est Glom Filt Rate - Afr Amer 88 mL/min (>60); Globulin 3.3 g/dL (2.2-4.2); Glucose 104 mg/dL (74-106); High Density Lipoprotein 48 mg/dL; Potassium 4.2 mmol/L (3.5-5.1); Protein, Total 7.3 g/dL (6.4-8.2); Sodium Level 132 mmol/L (136-145); T4 Free Direct 1.17 ng/dL (0.76-1.46); Thyroid Stim Hormone (TSH) 2.22 uIU/mL (0.358-3.74); Triglycerides 147 mg/dL; Very Low Density Lipoprotein 29 mg/dL (5-40)
== END | disposition home or self-care (01) ==
LOC: MFPLAB 09:26
PROVIDERS: PCP Family Medicine; Visit Provider Family Medicine
DX: I65.23 Occlusion and stenosis of bilateral carotid arteries (principal); J44.9 Chronic obstructive pulmonary disease, unspecified; E03.9 Hypothyroidism, unspecified
CPT/HCPCS: 36415; 80053; 80061; 84439; 84443; 85025

== ENCOUNTER → 2024-01-14 | Outpatient (CLI) | payer MEDICARE, BC, SELFPAY ==
[2024-01-14 11:03] LABS: Osmolality, Serum 289 mOsm/KG (280-301)
[2024-01-14 11:29] LABS: ALB/GLOB Ratio 1.1 RATIO (0.9-2.4); AST(SGOT) 17 U/L (15-37); Alanine Aminotransfer ALT/SGPT 28 U/L (16-61); Albumin, Serum 3.9 g/dL (3.2-5.0); Alkaline Phosphatase 90 U/L (45-117); Anion Gap 7 (5-15); BUN 17 mg/dL (7-18); BUN/Creat Ratio 13.6 RATIO (10-20); Calcium,Total 9.8 mg/dL (8.5-10.1); Chloride 100 mmol/L (98-107); Creatinine, Serum 1.25 mg/dL (0.70-1.30); EST Glomerular Filtration Rate 61 mL/min (>60); Est Glom Filt Rate - Afr Amer 73 mL/min (>60); Globulin 3.5 g/dL (2.2-4.2); Glucose 100 mg/dL (74-106); Potassium 3.9 mmol/L (3.5-5.1); Protein, Total 7.4 g/dL (6.4-8.2); Sodium Level 133 mmol/L (136-145)
[2024-01-15 08:11] LABS: GGTP 41 IU/L (0-65)
== END | disposition home or self-care (01) ==
LOC: MTLAB 07:44
PROVIDERS: PCP Family Medicine; Referring Provider Family Medicine; Visit Provider Family Medicine
DX: E87.1 Hypo-osmolality and hyponatremia (principal); R74.8 Abnormal levels of other serum enzymes
CPT/HCPCS: 36415; 80053; 82977; 83930

== ENCOUNTER → 2024-01-17 | Outpatient (CLI) | payer MEDICARE, BC, SELFPAY | END | disposition home or self-care (01) | PROVIDERS: PCP Family Medicine; Referring Provider Family Medicine; Visit Provider Family Medicine | DX: E87.1 Hypo-osmolality and hyponatremia (principal) | CPT/HCPCS: 83935 ==

== ENCOUNTER → 2024-01-19 | Outpatient (CLI) | payer MEDICARE, BC, SELFPAY ==
[2024-01-19 10:59] LABS: Urine Sodium 87 mmol/L (Not Establ.)
[2024-01-19 12:17] LABS: Osmolality, Urine 551 mOsm/KG
== END | disposition home or self-care (01) ==
LOC: MFPLAB 08:11
PROVIDERS: PCP Family Medicine; Visit Provider Family Medicine
DX: E87.1 Hypo-osmolality and hyponatremia (principal); R74.8 Abnormal levels of other serum enzymes
CPT/HCPCS: 83935; 84300

== ENCOUNTER → 2024-06-21 | Outpatient (CLI) | payer MEDICARE, BC, SELFPAY ==
[2024-06-21 10:21] LABS: Absolute Lymphocyte Count 2.18 X10^3/uL (0.83-4.51); Absolute Neutrophil Count 5.6 X10^3/uL (2.0-7.7); Basophil# 0.04 X10^3/uL; Basophil% 0.5 % (0-1); Eosinophil# 0.23 X10^3/uL; Eosinophils% 2.6 % (0-5); Hematocrit 43.8 % (40-54); Hemoglobin 14.9 g/dL (13.0-16.5); Lymphocyte # 2.18 X10^3/ul (0.83-4.51); Lymphocyte % 24.9 % (19-41); Mean Corpuscular Hgb 31.3 pg (27.0-32.0); Monocyte# 0.69 X10^3/uL; Monocyte% 7.9 % (0-10); NRBC Flagged by Analyzer 0 % (0-5); Neutrophil % 63.8 % (47-70); Platelet Count 245 K/mm3 (150-450); RBC Distribution Width CV 13.2 % (11.6-14.6); RBC Distribution Width SD 45.3 fl (35.1-43.9); Red Blood Count 4.76 M/mm3 (4.6-6.2); White Blood Count 8.8 K/mm3 (4.4-11.0)
[2024-06-21 10:44] LABS: Osmolality, Serum 276 mOsm/KG (280-301)
[2024-06-21 10:54] LABS: Osmolality, Urine 383 mOsm/KG
[2024-06-21 10:55] LABS: ALB/GLOB Ratio 1.1 RATIO (0.9-2.4); AST(SGOT) 21 U/L (15-37); Alanine Aminotransfer ALT/SGPT 27 U/L (16-61); Albumin, Serum 4.1 g/dL (3.2-5.0); Alkaline Phosphatase 74 U/L (45-117); Anion Gap 8 (5-15); BUN 15 mg/dL (7-18); BUN/Creat Ratio 12.2 RATIO (10-20); Calcium,Total 9.3 mg/dL (8.5-10.1); Chloride 97 mmol/L (98-107); Creatinine, Serum 1.23 mg/dL (0.70-1.30); EST Glomerular Filtration Rate 62 mL/min (>60); Est Glom Filt Rate - Afr Amer 75 mL/min (>60); Globulin 3.6 g/dL (2.2-4.2); Glucose 95 mg/dL (74-106); Magnesium 2.2 mg/dL (1.6-2.6); Potassium 4.3 mmol/L (3.5-5.1); Protein, Total 7.7 g/dL (6.4-8.2); Sodium Level 132 mmol/L (136-145)
[2024-06-21 11:52] LABS: Microalbumin,Random Urine 30.5 mg/L (NO RANGE EST.); Microalbumin:Creatinine Ratio 38.8 mg/g CRE (<30 mg/g CRE); Urine Sodium 48 mmol/L (Not Establ.)
== END | disposition home or self-care (01) ==
LOC: MFPLAB 08:22
PROVIDERS: PCP Family Medicine; Referring Provider Family Medicine; Visit Provider Family Medicine
DX: E87.1 Hypo-osmolality and hyponatremia (principal); J44.9 Chronic obstructive pulmonary disease, unspecified; I10 Essential (primary) hypertension
CPT/HCPCS: 36415; 80053; 82043; 82570; 83735; 83930; 83935; 84300; 84443; 85025

== ENCOUNTER → 2024-06-29 | Outpatient (CLI) | payer MEDICARE, BC, SELFPAY | END | disposition home or self-care (01) | LOC: PSN 06:46 | PROVIDERS: PCP Family Medicine; Referring Provider Family Medicine; Visit Provider Family Medicine | DX: J44.9 Chronic obstructive pulmonary disease, unspecified (principal) | CPT/HCPCS: 94010; 94726; 94729 ==

== ENCOUNTER → 2024-07-12 | Outpatient (CLI) | payer MEDICARE, BC, SELFPAY ==
[2024-07-12 14:17] LABS: Urine Sodium 130 mmol/L (Not Establ.)
== END | disposition home or self-care (01) ==
LOC: POLAB3 13:19
PROVIDERS: PCP Family Medicine; Visit Provider Internal Medicine Nephrology
DX: E87.1 Hypo-osmolality and hyponatremia (principal)
CPT/HCPCS: 84300

== ENCOUNTER 2024-11-19 19:50 | Inpatient (IN) | payer MEDICARE, BC, SELFPAY ==
[2024-11-19] VITALS (12 sets, daily range): BP systolic 157–176; BP diastolic 62–89; PULSE 55–73; RESP 10–18; TEMP 36.7; O2SAT 91–100; BMI 21.9
--- NOTE | 2024-11-19 20:00 | EDS_ITS ---
HPI <Dr. Kevin Genao, DO - Last Filed: 11/22/24 15:14> History of Present Illness Chief Complaint: Chest Pain [facility] <Dr. Kevin Genao DO - Last Filed: 11/22/24 15:14> [facility] Medical History Alcohol abuse Alcoholism Carotid stenosis, bilateral Chest pain COPD (chronic obstructive pulmonary disease) Heart disease Herniated disc High cholesterol High triglycerides Hyperlipidemia Hypertension Liver disease Lung disease Shortness of breath Home Medications ?Medication ?Instructions ?Recorded ?Last Taken ?Type amlodipine 5 mg tablet 5 mg PO DAILY 03/30/17 Unkno wn History aspirin 81 mg chewable tablet 81 mg PO DAILY@0800 03/11 05/26 Unknown History levalbuterol tartrate 45 15 g IH DAILY PRN Wheezing 1 05/30/16 Unknown History mcg/actuation aerosol inhaler levocetirizine 5 mg tablet 5 mg PO DAILY 03/30/17 Unkn own History potassium citrate 10 mEq (1,080 5 meq PO DAILY 7 Unknown History mg) tablet,extended release rosuvastatin 20 mg tablet 20 mg PO DAILY 03/30/17 Unkn own History umeclidinium 62.5 mcg/actuation 62.5 mcg IH DAILY PRN Wheezing 03/30/17 Unknown History blister powder for inhalation calcium 500 mg (as carbonate)-D3 1 tab PO BID 09/11/20 Unknown History 2.5 mcg (100 unit) chewable tablet levothyroxine 25 mcg tablet 25 mcg PO DAILY 09/16/20 U nknown History thiamine mononitrate (vit B1) 100 100 mg PO DAILY PRN 09/16/20 Unknown History mg tablet metoprolol succinate 50 mg 50 mg PO DAILY 04/07/21 Unk nown History tablet,extended release 24 hr ascorbate calcium (vitamin C) 500 500 mg PO DAILY 07/09 01/29 Unknown History mg tablet omega 3-fyh-wag-fish oil 300 1 cap PO BID 02/02/22 Unk nown History mg-1,000 mg capsule,delayed release (Fish Oil) Allergy/AdvReac Type Severity Reaction Status Date / Time fentanyl AdvReac Severe confusion Verified 11/20/24 19:34 midazolam (From Versed) AdvReac Severe confusion Verified 11/20/24 19:34 Family History Brother Heart disease Myocardial infarction Father Heart disease Myocardial infarction Surgical History History of appendectomy History of cardiac catheterization History of intestinal surgery History of knee surgery Social History Smoking Status: Current every day smoker tobacco type: cigarettes Electronic Cigarette Use: not used second hand exposure: No alcohol intake: current alcohol intake frequency: 0-2 drinks per day Alcohol type: beer substance use type: marijuana what type of physical activity do you participate in: other details: gym frequency: 3-4 times per week angie/restorationism: Uatsdin seatbelt use: always EXAM <Dr. Kvein Genao, DO - Last Filed: 11/22/24 15:14> Physical Exam Const Vital Signs: 11/19/24 19:54 11/19/24 20:00 11/19/24 20:08 Temperature 98.0 F Temperature Source Oral Pulse Rate 55 L 56 L Respiratory Rate 14 15 Blood Pressure 157/81 H Blood Pressure Mean 106 Pulse Ox 98 97 Oxygen Delivery Method Room Air Room Air 11/19/24 20:15 11/19/24 20:30 11/19/24 20:45 Temperature Temperature Source Pulse Rate 60 61 60 Respiratory Rate 13 15 12 Blood Pressure Blood Pressure Mean Pulse Ox 99 98 97 Oxygen Delivery Method 11/19/24 20:57 11/19/24 21:00 11/19/24 21:15 Temperature Temperature Source Pulse Rate 65 61 63 Respiratory Rate 18 13 10 L Blood Pressure 157/80 H 172/68 H 168/62 H Blood Pressure Mean 88 96 93 Pulse Ox 96 98 100 Oxygen Delivery Method 11/19/24 21:15 11/19/24 21:30 11/19/24 21:45 Temperature Temperature Source Pulse Rate 73 65 Respiratory Rate 17 16 Blood Pressure 168/62 H 168/89 H 176/82 H Blood Pressure Mean 93 106 108 Pulse Ox 91 93 Oxygen Delivery Method 11/19/24 22:00 11/19/24 22:15 Temperature Temperature Source Pulse Rate 63 Respiratory Rate 14 Blood Pressure Blood Pressure Mean Pulse Ox 96 97 Oxygen Delivery Method <Dr. Dwayne Carrera, DO - Last Filed: 11/19/24 22:56> Physical Exam Const Vital Signs: 11/19/24 19:54 11/19/24 20:00 11/19/24 20:08 Temperature 98.0 F Temperature Source Oral Pulse Rate 55 L 56 L Respiratory Rate 14 15 Blood Pressure 157/81 H Blood Pressure Mean 106 Pulse Ox 98 97 Oxygen Delivery Method Room Air Room Air 11/19/24 20:15 11/19/24 20:30 11/19/24 20:45 Temperature Temperature Source Pulse Rate 60 61 60 Respiratory Rate 13 15 12 Blood Pressure Blood Pressure Mean Pulse Ox 99 98 97 Oxygen Delivery Method 11/19/24 20:57 11/19/24 21:00 11/19/24 21:15 Temperature Temperature Source Pulse Rate 65 61 63 Respiratory Rate 18 13 10 L Blood Pressure 157/80 H 172/68 H 168/62 H Blood Pressure Mean 88 96 93 Pulse Ox 96 98 100 Oxygen Delivery Method 11/19/24 21:15 11/19/24 21:30 11/19/24 21:45 Temperature Temperature Source Pulse Rate 73 65 Respiratory Rate 17 16 Blood Pressure 168/62 H 168/89 H 176/82 H Blood Pressure Mean 93 106 108 Pulse Ox 91 93 Oxygen Delivery Method 11/19/24 22:00 11/19/24 22:15 Temperature Temperature Source Pulse Rate 63 Respiratory Rate 14 Blood Pressure Blood Pressure Mean Pulse Ox 96 97 Oxygen Delivery Method [facility] <Dr. Kevin Genao, DO - Last Filed: 11/22/24 15:14> [facility] Narrative Medical decision making narrative: HISTORY OF PRESENT ILLNESS: Chief complaint: Chest pain 69-year-old male history of hyperlipidemia, hypertension, alcoholism, COPD presents with chest pain. Notes chest pain started proximately 1 PM his afternoon (7 hours prior to arrival). It is described as a tightness, sharpness coming in waves. Worse with food. Is nonradiating. It is not associate with cough fever or chills. No associated leg swelling. Pain is not exertional. He denies any PE risk factors (the patient denies recent surgery in the last 4 weeks or immobilization in the last 3 days, denies previous diagnosis of DVT or PE, hemoptysis, unilateral leg swelling or malignancy with treatment the last 6 months or palliative. No estrogen use noted.) Notes he had a drink at noon and notes he still smokes. Notes he is had nausea and vomiting as well no he vomited 1 time this afternoon. He also complains of significant diffuse abdominal pain denies any blood in his vomit. Denies diarrhea, melena hematochezia. Denies ripping or tearing sensation or any other or aortic dissection risk factors (patient denies sudden onset of pain, no tearing sensation, no migratory symptoms, no new numbness, weakness or loss of sensation. Patient denies family history or personal history of Connective tissue disorders (Marfan's Syndrome, Helen Danlos etc). REVIEW OF SYSTEMS: Pertinent positives: Chest pain, nausea vomiting, abdominal pain Pertinent negatives: Leg swelling, focal weakness PHYSICAL EXAM: Nursing triage notes reviewed, Vital signs reviewed Constitutional: please see [facility] HENT: MMM Eyes: Pupils equal round and reactive to light, Extraocular muscles intact Neck: No stridor, no JVD, full neck ROM Lungs: Clear to auscultation, No wheezing or rales. No increased work of breathing, no conversational dyspnea, no accessory muscle use, no nasal flaring. No respiratory distress noted Heart: Regular rate and rhythm, No murmurs, No rubs and No gallops, 2+ distal p ulses (radial, femoral, posterior tibial) in all extremities Abdomen: Soft, RUQ TTP, + muphy sign, no rigidity, rebound or guarding, no obvious peritoneal signs, no palpable pulsatile abdominal masses, no auscultated abdominal bruit : No CVAT Extremities: No edema Neuro: No new focal neurological deficits, cranial nerves II through XII intact, 5/5 strength in all present extremities. Intact sensation to light touch in all present extremities, 2+ reflexes bilateral patella tendons. Skin: No rash or lesions noted MEDICAL DECISION MAKING: Chief Complaint: please see HPI External records reviewed: Reviewed prior cardiovascular testing Factors affecting care: As per HPI Social determinants of health: History of alcohol abuse History obtained from others: EMS Consults: General surgery (Dr. Samano) -discussed patient CT scan is concerning for acute cholecystitis. He noted he will evaluate the patient. Final recommendations are pending ultrasound at this time. [facility] Narrative: The patient was initially hemodynamically stable, afebrile and nontoxic- appearing. Exam without focal cardiopulmonary abnormalities. I considered the following differential diagnosis: ACS, anemia, arrhythmia, electro disturbance, pneumonia, PE, aortic dissection, pericarditis I obtained a broad lab and imaging work to further determine if the patient was suffering from a life-threatening etiology. Initially treat the patient with IV fluids, Zofran and morphine ALL IMAGES (IF OBTAINED) HAVE BEEN PERSONALLY REVIEWED AND INTERPRETED BY MYSELF. CBC with leukocytosis suggestive of systemic inflammation, no anemia or thrombocytopenia BMP with hyponatremia otherwise no significant Bennett abnormalities, no signs of metabolic acidosis or endorgan hypoperfusion, no JAYLEN LFTs with elevation in AST and ALT, no evidence of hyperbilirubinemia or elevation alkaline phosphatase High-sensitivity troponin is negative, no evidence of myocardial ischemia Lipase grossly elevated consistent with acute pancreatitis versus gallstone pancreatitis CT scan abdomen/pelvis was read and reviewed by myself and was concerning for acute cholecystitis will obtain right upper quadrant ultrasound (pending) Chest x-ray reviewed personally was also no evidence of obvious pneumonia. Radiologist agreed monitor potation and added stable appearance, no evidence of acute cardiopulmonary abnormality Repeat exam with ongoing TTP in right upper quadrant The patient and/or family, caregivers express understanding. The patient and/or family, caregivers agrees with the plan. Shared decision making: I will have a discussion with the patient and or visitors regarding risk/benefits of further testing or admission. They will be made aware of of the risk/benefits inherent in this decision they will be given the opportunity to voice understanding. Total critical care time today provided was at least 0 minutes. This excludes separately billable procedures. Critical care time (if documented) is secondary to the patient having high probability of clinically significant/life threatening deterioration in the patient's condition which required my urgent intervention. Impression: 1. Chest pain 2. Abdominal pain 3. Elevated liver enzymes 4. Gallbladder inflammation concerning for acute cholecystitis 5. Acute pancreatitis Dispo: Pending other right upper quadrant ultrasound and likely general surgery consult signed out to overnight physician This note was generated with [employer] dictation software. It may contain incorrect words, spelling, and punctuation that were not noted in review of the chart prior to signing. Lab Data Labs: Laboratory Results - last 24 hr 11/19/24 11/19/24 20:00 22:14 WBC 16.5 H RBC 4.43 L Hgb 14.0 Hct 39.2 L MCV 88.5 MCH 31.6 MCHC 35.7 RDW Std Deviation 41.6 RDW Coeff of Roro 12.8 Plt Count 227 MPV 10.5 Immature Gran % (Auto) 0.500 Neut % (Auto) 84.9 H Lymph % (Auto) 8.8 L [place] % (Auto) 4.3 Eos % (Auto) 1.3 Baso % (Auto) 0.2 Absolute Neuts (auto) 14.0 H Absolute Lymphs (auto) 1.45 Nucleated RBC % 0 Sodium 130 L Potassium 3.7 Chloride 93 L Carbon Dioxide 22.0 Anion Gap 15 BUN 17 Creatinine 0.98 Estim Creat Clear Calc 54.76 Est GFR (MDRD) Non-Af 83 BUN/Creatinine Ratio 17.7 Glucose 136 H Calcium 9.2 Total Bilirubin 1.04 Direct Bilirubin 0.76 H AST 217 H ALT 126 H Alkaline Phosphatase 106 Troponin T High Sens 10 Troponin T Hi Sens 2 Hr 10 Total Protein 6.7 Albumin 4.3 Globulin 2.4 Lipase 2936 H Radiography Diagnostic Testing: Clinical Impression(s) from Imaging Studies Chest X-Ray 11/19/24 20:15 IMPRESSION: Stable appearance of the chest, without evidence of an acute cardiopulmonary abnormality. Reading Location: [facility] Abdomen/Pelvis CT 11/19/24 20:52 IMPRESSION: Findings worrisome for acute cholecystitis. Of note, there is a small amount of free fluid adjacent to the liver and surrounding the gallbladder. Recommend Surgical consultation +/- ultrasound. Reading Location: [facility] Abdomen Ultrasound 11/19/24 22:05 IMPRESSION: Abnormal gallbladder, most consistent with cholecystitis. Reading Location: [facility] <Dr. Dwayne Carrera, DO - Last Filed: 11/19/24 22:56> [facility] Lab Data Attestation: I reviewed the patient's lab results. Labs: Laboratory Results - last 24 hr 11/19/24 11/19/24 20:00 22:14 WBC 16.5 H RBC 4.43 L Hgb 14.0 Hct 39.2 L MCV 88.5 MCH 31.6 MCHC 35.7 RDW Std Deviation 41.6 RDW Coeff of Roro 12.8 Plt Count 227 MPV 10.5 Immature Gran % (Auto) 0.500 Neut % (Auto) 84.9 H Lymph % (Auto) 8.8 L [place] % (Auto) 4.3 Eos % (Auto) 1.3 Baso % (Auto) 0.2 Absolute Neuts (auto) 14.0 H Absolute Lymphs (auto) 1.45 Nucleated RBC % 0 Sodium 130 L Potassium 3.7 Chloride 93 L Carbon Dioxide 22.0 Anion Gap 15 BUN 17 Creatinine 0.98 Estim Creat Clear Calc 54.76 Est GFR (MDRD) Non-Af 83 BUN/Creatinine Ratio 17.7 Glucose 136 H Calcium 9.2 Total Bilirubin 1.04 Direct Bilirubin 0.76 H AST 217 H ALT 126 H Alkaline Phosphatase 106 Troponin T High Sens 10 Troponin T Hi Sens 2 Hr 10 Total Protein 6.7 Albumin 4.3 Globulin 2.4 Lipase 2936 H Radiography Diagnostic Testing: Clinical Impression(s) from Imaging Studies Chest X-Ray 11/19/24 20:15 IMPRESSION: Stable appearance of the chest, without evidence of an acute cardiopulmonary abnormality. Reading Location: [id number] Abdomen/Pelvis CT 11/19/24 20:52 IMPRESSION: Findings worrisome for acute cholecystitis. Of note, there is a small amount of free fluid adjacent to the liver and surrounding the gallbladder. Recommend Surgical consultation +/- ultrasound. Reading Location: [facility] Abdomen Ultrasound 11/19/24 22:05 IMPRESSION: Abnormal gallbladder, most consistent with cholecystitis. Reading [facility] Discussion w/another healthcare provider: Senior Environmental Engineer Treatment and Re-Evaluation :: The patient was signed out to me while awaiting ultrasound as well as evaluation by general surgery. General surgery evaluated the patient and they do feel that based on his labs and CT scan that he will require admission. Therefore they accepted him to their service for continued monitoring and care. Discharge Plan Dx/Rx/DC Orders Clinical Impression: Acute cholecystitis, Gallstone pancreatitis, Alcoholism, Hyperlipidemia Disposition Disposition: [facility] Discharge Date/Time: 11/20/24 00:44
--- NOTE | 2024-11-19 20:02 | EKG12_ITS ---
Test Reason : CP Blood Pressure : */* mmHG Vent. Rate : 56 BPM Atrial Rate : 56 BPM P-R Int : 136 ms QRS Dur : 90 ms QT Int : 492 ms P-R-T Axes : 73 67 75 degrees QTcB Int : 474 ms Sinus bradycardia Otherwise normal ECG Confirmed by Gold Serrano ([id number]), editorial specialist MARISA CASTELLANOS ([id number]) on 11/20/2024 1:08:13 PM Referred By: TA Confirmed By: Gold Serrano
--- NOTE | 2024-11-19 20:15 | RAD_ITS ---
PROCEDURE: CHEST 1 VIEW (PORTABLE) 11/19/2024 REASON FOR EXAM: CHEST PAIN TECHNIQUE: Frontal view of the chest. COMPARISON: Chest radiograph and CT on 07/03/2023 FINDINGS: Hardware: None Heart: The heart size is normal. Lungs: Mild elevation of the left hemidiaphragm is unchanged. No focal consolidation or significant pleural effusion. Bones: Degenerative changes are identified within the thoracic spine. RAD/Chest 1 View (Portable) IMPRESSION: Stable appearance of the chest, without evidence of an acute cardiopulmonary ab normality. Reading Location: [id number]
[2024-11-19] MEDS: 0.9% Normal Saline (1000mL) 1,000 ML 999 ML IV (20:25)
[2024-11-19 20:33] LABS: Hematocrit 39.2 % (40-54); Hemoglobin 14.0 g/dL (13.0-16.5); Immature Granulocytes Count 0.080 X10^3/uL (0.0-0.0); Mean Corp Hgb Conc 35.7 g/dL (32-36); Mean Corpuscular Volume 88.5 fL (80-94); Mean Platelet Vol. 10.5 fl (6.2-12.0); NRBC Flagged by Analyzer 0 % (0-5); Platelet Count 227 K/mm3 (150-450); RBC Distribution Width CV 12.8 % (11.6-14.6); RBC Distribution Width SD 41.6 fl (35.1-43.9); Red Blood Count 4.43 M/mm3 (4.6-6.2); White Blood Count 16.5 K/mm3 (4.4-11.0)
[2024-11-19 20:43] LABS: Anion Gap 15 (5-15); BUN 17 mg/dL (4-19); BUN/Creat Ratio 17.7 RATIO (10-20); Calcium,Total 9.2 mg/dL (7.6-11.0); Carbon Dioxide 22.0 mmol/L (21.0-32.0); Chloride 93 mmol/L (98-108); Estimated Creatinine Clearance 54.76 ml/min (50-250); Glucose 136 mg/dL (70-99); Potassium 3.7 mmol/L (3.3-5.1)
[2024-11-19 20:47] LABS: Troponin T High Sensitivity 10 ng/L (<=22)
--- NOTE | 2024-11-19 20:52 | CT_ITS ---
PROCEDURE: ABDOMEN/PELVIS W IV CONT ONLY 11/19/2024 REASON FOR EXAM: ABDOMINAL PAIN, ELEVATED WHITE BLOOD CELL TECHNIQUE: ABDOMEN/PELVIS W IV CONT ONLY Coronal and Sagittal reconstruction series were provided. CONTRAST: Isovue 370 VOLUME: 83 mL One or more dose reduction techniques were used (e.g., Automated exposure control, adjustment of the mA and/or kV according to patient size, use of iterative reconstruction technique. RADIATION DOSE SUMMARY: CTDlvol: 13.3 mGy DLP: 294 mGycm COMPARISON: Abdominal ultrasound 08/07/2020, CTA chest 07/03/2023 FINDINGS: Lung bases: Mild bibasilar atelectasis. Aortic and coronary calcifications. Pleural plaque along the left diaphragm. Liver: Mildly hypoattenuating. Small volume of perihepatic ascites. Gallbladder: Hydropic containing radiodense stones and with marked wall thickening and pericholecystic fluid, in addition to inflammatory stranding and fluid peripherally. Spleen: Unremarkable Pancreas: Normal size without evidence of mass surrounding inflammation or ductal dilation. Adrenals: Unremarkable Kidneys: No hydronephrosis or stone. Bladder: Unremarkable Reproductive Organs: Coarse prostatic calcifications. Bowel: Prominent rectal stool burden. Mild colonic wall thickening near the hepatic flexure, which may be reactive. Appendix: Surgically absent Lymph nodes: Prominent subcentimeter nodes in the upper abdomen. Vasculature: Diffuse aortic atherosclerotic calcifications. Bones: Degenerative changes of the spine. Remote left-sided rib fractures. Soft tissues: Unremarkable. CT/Abdomen/Pelvis W IV Cont ONLY IMPRESSION: Findings worrisome for acute cholecystitis. Of note, there is a small amount o f free fluid adjacent to the liver and surrounding the gallbladder. Recommend Surgical consultation +/- ultrasound. Reading Location: [id number]
--- OUTSIDE RECORDS SUMMARY | 2024-11-19 21:09 | XMS RPT_ITS | CCD ---
Author Organization [facility] Care Team Providers Care Tuber Helper Name Role Phone Dr. Gosia Delaney Primary Care Provider Dr. Gosia Melendez Attending Provider Dr. Tuan Foster Referring Provider Dr. Gosia Delaney Primary Care Provider [phone] Gosia Delaney Referring Provider [phone] Dr. Tuan Foster Attending Provider Dr. Gosia Melendez Attending Provider [phone] Tuan Foster Referring Provider Dr. Gosia Delaney Primary Care Provider [phone] Gosia Delaney Referring Provider [phone] Dr. Tuan Foster Attending Provider Dr. Gosia Melendez Attending Provider Gosia Delaney MD Primary Care Provider [phone] JESSY STAFFORD Attending Unavailable GOSIA DELANEY Primary Care Unavailable Gosia Delaney MD Primary Care Provider [phone] MARY CARMEN CLINE Attending Unavailable GOSIA DELANEY Primary Care Unavailable Dr. Gosia Delaney MD Primary Care Provider [phone] Gosia Delaney MD Attending Provider [phone] Gosia Delaney MD Referring Provider [phone] Tina Sutherland DO Attending Provider Dr. Gosia Delaney MD Primary Care Provider [phone] Gosia Delaney MD Referring Provider [phone] Tuan Foster MD Attending Provider Delaney, Gosia Attending Unavailable Delaney, Gosia Referring Unavailable Delaney, Gosia Primary Care Unavailable Delaney, Gosia Attending Unavailable Delaney, Gosia Referring Unavailable Delaney, Gosia Primary Care Unavailable Delaney, Gosia Primary Care Unavailable Tina Sutherland Attending Unavailable Delaney, Gosia Attending Unavailable Delaney, Gosia Primary Care Unavailable Delaney, Gosia Attending Unavailable Delaney, Gosia Referring Unavailable Delaney, Gosia Primary Care Unavailable Delaney, Gosia Attending Unavailable Delaney, Gosia Primary Care Unavailable Delaney, Gosia Primary Care Unavailable Tuan Foster Attending Unavailable Tuan Foster Referring Unavailable Delaney, Gosia Referring Unavailable Delaney, Gosia Primary Care Unavailable Tuan Foster Attending Unavailable Franck Shelby Attending Unavailable Delaney, Gosia Referring Unavailable Delaney, Gosia Primary Care Unavailable Delaney, Gosia Attending Unavailable Delaney, Gosia Referring Unavailable Delaney, Gosia Primary Care Unavailable Delaney, Gosia Attending Unavailable Delaney, Gosia Primary Care Unavailable Medications Current Medications Medication Drug Class(es) Dates Sig (Normalized) Sig (Original) amLODIPine 5 mg oral tablet (13 sources) Dihydropyridine Calcium Channel Donna Start: 03-30-2017 take 1 tablet by mouth once daily Amlodipine 5 MG tablet Active 5 mg PO DAILY March 30, 2017 1:00am Ascorbic Acid (2 sources) Vitamin C ascorbic acid (VITAMIN C ORAL) Take by mouth once daily. 0 Active Comment on above: Take by mouth once d aily. aspirin 81 mg chewable tablet (12 sources) Platelet Aggregation Inhibitor, Nonsteroidal Anti-inflammatory Drug Start: 03-30-2017 take 1 tablet by mouth once daily Aspirin 81 MG tablet,chewable Active 81 mg PO DAILY@0800 March 30, 2017 1:00am atorvastatin 40 mg oral tablet (2 sources) HMG-CoA Reductase Inhibitor Start: 08-15-2023 take 1 tablet by mouth once atorvastatin (LIPITOR) 40 mg tablet Take 1 tablet by mouth every afternoon. 0 08/15/2023 Active Comment on above: Take 1 tablet by linda th every afternoon. calcium ascorbate 500 mg oral tablet (12 sources) Start: 08-05-2021 take 1 tablet by mouth once daily Ascorbate Calcium (Vitamin C) 500 mg tablet Active 500 mg PO DAILY August 05, 2021 12:00am calcium carbonate 1250 mg / cholecalciferol 100 unt chewable tablet (12 sources) Vitamin D Start: 09-11-2020 Calcium Carbonate-Vitamin D3 500-100 mg-unit tablet,chewable Active 1 {tbl} PO TWICE A DAY September 11, 2020 12:00am Start: 09-11-2020 take 1 tablet by linda th twice daily Calcium Carbonate-Vitamin D3 Active 1 TABLET PO TWICE A DAY September 10, 2020 11:00pm docosahexaenoic acid/epa (FISH OIL ORAL) (2 sources) docosahexaenoic acid/epa (FISH OIL ORAL) Take by mouth once daily. 0 Active Comment on above: Take by mouth once d aily. dupilumab (DUPIXENT PEN) 200 mg/1.14 mL pen injection (2 sources) dupilumab (DUPIX ENT PEN) 200 mg/1.14 mL pen injection every 2 weeks. 0 Active Comment on above: every 2 weeks. irbesartan 75 mg oral tablet (13 sources) Angiotensin 2 Receptor Donna Start: 09-17-19 21 take 1 tablet by mouth once daily Irbesartan 75 mg tablet Active 75 mg PO DAILY September 16, 2020 12:00am 200 actuat levalbuterol 0.045 mg/actuat metered dose inhaler (12 sources) beta2-Adrenergic Agonist Start: 03-30-20 17 Levalbuterol Tartrate 15 GM HFA aerosol inhaler Active 15 g IH DAILY as needed for Wheezing March 30, 2017 1:00am levocetirizine dihydrochloride 5 mg oral tablet (14 sources) Histamine-1 Receptor Antagonist Start: 03-30-20 17 take 1 tablet by mouth once daily Levocetirizine 5 MG tablet Active 5 mg PO DAILY March 30, 2017 1:00am Comment on above: Take 5 mg by mouth o nce daily. levothyroxine sodium 0.025 mg oral tablet (14 sources) l-Thyroxine Start: 09-17-19 21 take 1 tablet by mouth once daily Levothyroxine 25 mcg tablet Active 25 ug PO DAILY September 16, 2020 12:00am Comment on above: once daily. LOW-DOSE ASPIRIN ORAL (2 sources) LOW-DOSE ASPIRIN ORAL Take by mouth once daily. 0 Active Comment on above: Take by mouth once d aily. 24 hr metoprolol succinate 50 mg extended release oral tablet (13 sources) beta-Adrenergic Donna Start: 11-29-20 21 take 1 tablet by mouth every twenty-four hours metoprolol succinate ER (TOPROL XL) 50 mg 24 hr tablet Take by mouth. 0 04/07/2021 Active Start: 04-07-2021 take 1 tablet by linda th once daily Metoprolol Succinate 50 mg tablet extended release 24 hr Active 50 mg PO DAILY April 07, 2021 1:00am MULTIVITAMIN ORAL (2 sources) MULTIVITAMIN ORA L Take by mouth once daily. 0 Active Comment on above: Take by mouth once d aily. [place] 7-Ouo-Mcd-Fish Oil (Fish Oil) 300-1,000 mg capsule,delayed release(DR/EC) (12 sources) Start: 02-02-2022 [place] 4-Nhd-Jzv-Fish Oil (Fish Oil) 300-1,000 mg capsule,delayed release(DR/EC) Active 1 NMA PO TWICE A DAY February 02, 2022 12:00am Start: 02-02-2022 take 300-1000 mg by mouth twice daily [place] 4-Pyx-Zro-Fish Oil (Fish Oil) 300-1,000 mg capsule,delayed release(DR/EC) Active 1 CAP PO TWICE A DAY February 02, 2022 12:00am Start: 02-02-2022 take 300-1000 mg by mouth twice daily [place] 9-Pbl-Kxq-Fish Oil (Fish Oil) 300-1,000 mg capsule,delayed release(DR/EC) Active 1 CAP PO TWICE A DAY February 01, 2022 11:00pm potassium citrate 10 meq extended release oral tablet (14 sources) Start: 03-30-2017 take 5 mEq by mouth once daily Potassium Citrate 10 MEQ tablet extended release Active 5 meq PO DAILY March 30, 2017 1:00am Start: 03-30-2017 potassium citr ate ER (UROCIT-K) 10 mEq (1,080 mg) Take by mouth once daily. 0 03/30/2017 Active Comment on above: Take by mouth once d aily. 24 hr propranolol hydrochloride 60 mg extended release oral capsule (20 sources) beta-Adrenergic Donna Start: 06-15-2023 propranolol ER (INDERAL LA) 60 mg 24 hr capsule once daily. 0 06/15/2023 Active Start: 11-19-2020 End: 04-07-2021 take 1 tablet by mouth once daily in the morning Propranolol 10 mg tablet Discontinued 10 mg PO EVERY MORNING 30 3 December 31, 2020 8:39am April 07, 2021 9:42am Comment on above: once daily. rosuvastatin calcium 20 mg oral tablet (12 sources) HMG-CoA Reductase Inhibitor Start: 017 take 1 tablet by mouth once daily Rosuvastatin 20 MG tablet Active 20 mg PO DAILY March 30, 2017 1:00am telmisartan 20 mg oral tablet (2 sources) Angiotensin 2 Receptor Donna Start: Telmisartan 20 mg tablet once daily. 0 08/15/2023 Active Comment on above: once daily. thiamine 100 mg oral tablet (20 sources) Start: 019 End: take 1 tablet by mouth once daily as needed Thiamine Mononitrate (Vit B1) 100 mg tablet Active 100 mg PO DAILY as needed September 16, 2020 8:10am 7 actuat umeclidinium 0.0625 mg/actuat dry powder inhaler (14 sources) Anticholinergic Start: take 1 puff(s) by inhalation once daily INCRUSE ELLIPTA 62.5 mcg/actuation inhaler Inhale 1 Puff as instructed once daily. 0 08/08/2023 Active Start: 03-30-2017 take 62.5 ug by inha lation once daily as needed for wheezing Umeclidinium 62.5 MCG blister with device Active 62.5 ug IH DAILY as needed for Wheezing March 30, 2017 1:00am Start: 03-30-2017 take 62.5 ug by inha lation once daily Umeclidinium Active 62.5 MCG IH DAILY March 30, 2017 1:00am Start: 03-30-2017 take 62.5 ug by inha lation once daily Umeclidinium Active 62.5 MCG IH DAILY March 30, 2017 12:00am Comment on above: Inhale 1 Puff as ins tructed once daily. Completed/Discontinued Medications Medication Drug Class(es) Dates Sig (Normalized) Sig (Original) acetaminophen 325 mg / HYDROcodone bitartrate 10 mg oral tablet (12 sources) Opioid Agonist Start: 03-30-2017 End: 05-18-2017 Hydrocodone-Acetami nophen 1 EACH tablet Discontinued 1 NMA PO EVERY 6 HOURS NEEDED as needed for Pain 14 0 March 30, 2017 11:13pm May 18, 2017 9:15am Start: 03-30-2017 End: 05-18-2017 Hydrocodone-Acetaminophen Di scontinued 1 EACH PO EVERY 6 HOURS NEEDED 14 March 30, 2017 10:13pm May 18, 2017 8:15am amoxicillin 875 mg / clavulanate 125 mg oral tablet (12 sources) Penicillin-class Antibacterial Start: 05-18-2017 End: 05-28-2017 Amoxicillin-Pot Clavulanate (Augmentin) 875-125 mg tablet Discontinued 1 {tbl} PO Q12H 20 10 0 May 18, 2017 1:00am May 27, 2017 1:00am May 28, 2017 1:10am Acute sinusitis, unspecified magnesium oxide 400 mg oral tablet (12 sources) Start: 03-30-2017 End: 09-16-2020 take 1 tablet by mouth once daily Magnesium Oxide 400 MG tablet Discontinued 400 mg PO DAILY March 30, 2017 1:00am September 16, 2020 8:10am omega-3 acid ethyl esters (assisted) 1000 mg oral capsule (12 sources) Start: 12-31-2020 End: 04-07-2021 take 1 capsule by mouth twice daily at mealtime [place]-3 Acid Ethyl Esters (Lovaza) 1 gram capsule Discontinued 2 NMA PO TWICE A DAY 120 3 December 31, 2020 12:00am April 07, 2021 12:59pm Take with food predniSONE 20 mg oral tablet (12 sources) Start: 03-30-2017 End: 08-17-2018 take 2 tablets by mouth once daily at mealtime Prednisone 20 MG tablet Discontinued 40 mg PO DAILY March 30, 2017 1:00am August 17, 2018 2:15pm With food Start: 03-30-2017 End: 08-17-2018 take 40 mg by mouth once daily at mealtime Prednisone Discontinued 40 MG PO DAILY March 30, 2017 12:00am August 17, 2018 1:15pm With food primidone 50 mg oral tablet (12 sources) Anti-epileptic Agent Start: 09-16-2020 End: 11-19-2020 take 0.5 tablet by mouth once daily, then take 0.5 tablet by mouth twice daily, then take 1 tablet by mouth twice daily Primidone 50 mg tablet Discontinued 0 .Route .COMPLEX 60 September 16, 2020 12:00am November 19, 2020 8:12am One-half tablet PO daily for one week then one-half tablet BID for one week then one tablet BID thereafter Problems Active Problems Problem Classification Problem Date Documented Da te Episodic/Chronic Alcohol-related disorders (14 sources) Alcoholism; Translations: [Alcohol dependence, uncomplicated] Onset: 08-25-2023 08-05-2021 Chronic Biliary tract disease (2 sources) Cholelithiasis without obstruction; Translations: [Calculus of gallbladder without cholecystitis without obstruction] 08-28-2023 Episodic Chronic obstructive pulmonary disease and bronchiectasis (1 source) Chronic obstructive pulmonary disease, unspecified; Translations: [Chronic obstructive pulmonary disease, unspecified] Onset: 07-13-2024 Chronic Conditions associated with dizziness or vertigo (14 sources) Lightheadedness; Translations: [Dizziness and giddiness] Onset: 08-25-2023 09-16-2020 Episodic Disorders of lipid metabolism (15 sources) Hyperlipidemia; Translations: [Hyperlipidemia, unspecified] Onset: 04-15-2023 12-31-2020 Chronic Nonspecific chest pain (6 sources) Chest wall pain; Translations: [Other chest pain] Onset: 07-08-2023 07-03-2023 Episodic Occlusion or stenosis of precerebral arteries (20 sources) Bilateral stenosis of carotid arteries; Translations: [Occlusion and stenosis of bilateral carotid arteries] Onset: 11-11-2022 02-02-2022 Chronic Other gastrointestinal disorders (6 sources) H/O: gallstones; Translations: [Personal history of other diseases of the digestive system] Onset: 08-25-2023 07-03-2023 Episodic Other gastrointestinal disorders (4 sources) H/O: liver disease; Translations: [Personal history of other diseases of the digestive system] 07-03-2023 Episodic Other hereditary and degenerative nervous system conditions (13 sources) Essential tremor; Translations: [Essential tremor] 02-02-2022 Chronic Other hereditary and degenerative nervous system conditions (14 sources) Hereditary essential tremor; Translations: [Essential tremor] Onset: 08-25-2023 09-16-2020 Chronic Other hereditary and degenerative nervous system conditions (6 sources) Essential tremor; Translations: [Essential and other specified forms of tremor] 11-02-2022 Chronic Other liver diseases (14 sources) Elevated liver enzymes level; Translations: [High liver transaminase level] Onset: 08-25-2023 09-16-2020 Episodic Other upper respiratory infections (14 sources) Acute sinusitis; Translations: [Acute sinusitis, unspecified] Onset: 08-25-2023 05-18-2017 Episodic Superficial injury; contusion (14 sources) Contusion of left chest wall; Translations: [Contusion of left front wall of thorax, initial encounter] Onset: 08-25-2023 04-07-2018 Episodic Past or Other Problems Problem Classification Problem Date Documented Da te Episodic/Chronic Fluid and electrolyte disorders (2 sources) Hypo-osmolality and hyponatremia; Translations: [Hypo-osmolality and hyponatremia] Onset: 01-22-2024 Episodic Results Test Name Value Interpretation Reference Range Facility Neurology Visit Reporton Neurology Visit Report [facility] [address] [facility], [address] [place] [address] OFFICE VISIT Date of Service: 11/08/24 MR#: [id number] Acct: [id number] Name: FAHAD DE LEON Rep #: [id number] : 1955 Provider: Dr. Tuan vo MD Age/Sex: 69/M Location: [facility] [place] Status: Signed HPI HPI Chief Complaint: Details: Interim History: Fahad returns for follow-up. He has a history of COPD, hypothyroidism, alcoholism (he reduced his alcohol consumption in 2022), hypertension, fatty liver, hyperlipidemia, bilateral cataract surgery (2020), and essential tremor. He has been experiencing a tremor since childhood; this had initially gradually worsened over time though since around 2020 his tremor has diminished and is now minimal. The tremor affects both hands, and to a lesser degree his legs and head. He began having functional impairment due to his tremor around 2010. He had difficulty holding a cup and using eating utensils and his tremor interfered with handwriting. The tremor is worsened with action. Propranolol was initiated in 2020 and he currently takes Propranolol ER 60mg daily and this is of benefit for his tremor and he is no longer experiencing functional impairment due to his tremor. He has not had shuffling or slowing of his gait, change in his voice or swallowing difficulty. He also takes the propranolol ER for hypertension as prescribed by his primary care physician. Primidone 25mg (half of 50mg tablet) was not well tolerated (caused diarrhea and GI upset). He reported having episodic disequilibrium when quickly changing positions, extending his neck for a prolonged period of time, or bending over for more than a few moments. Aside from these particular positional situations, he denied having dizziness. A carotid ultrasound from July 2019 revealed 50-69% stenosis of the right internal carotid artery and <50% stenosis of the left internal carotid artery and antegrade vertebral flow bilaterally. A carotid ultrasound from October 2022 revealed 50-69% stenosis of the internal carotid arteries bilaterally and antegrade vertebral flow bilaterally. His carotid ultrasound from October 2023 revealed 50-69% stenosis of the right internal carotid artery and less than 50% stenosis of the left internal carotid artery; vertebral flow was antegrade bilaterally. He does not have any history of stroke. Vestibular rehabilitation was not of benefit for his dizziness. He had physical therapy in 2021, which he felt was of benefit for his disequilibrium. He has a history of alcohol abuse. In the past, he used to drink 12 cans of beer per day. He reduced his alcohol consumption in 2022. He states that he now consumes about 2 cans of beer per week. He has a history of marijuana use. He has hyperlipidemia. He takes rosuvastatin and fish oil supplementation. He had elevated liver enzymes in the past. His most recent liver function tests (June 2023) were normal. He has a fatty liver. His liver ultrasound suggested compensated advanced chronic liver disease. Fenofibrate is contraindicated. Physical Exam: Neuro: The patient is awake and alert and responds appropriately; speech is fluent; no rigidity is noted in the wrists; a marginal fine tremor is noted in the left hand when arms are extended; no tremor is noted in the right hand when arms are extended; gait is unremarkable Neck: No bruits Heart: Regular rate and rhythm Supplemental Info Carotid duplex 07/21/18 Interpretation Summary The degree of stenosis in the right internal carotid artery appears to approach 50%. However, acoustic shadowing obscures visualization of a portion of the lumen of the proximal right internal carotid artery. Therefore, the degree of stenosis may be more severe, and an alternative imaging modality may be helpful. Clinical correlation is advised. Mild (<50%) stenosis left extracranial internal carotid. Flow within the vertebral arteries is antegrade bilaterally. Elevated velocities are noted in the right external carotid artery, suggesting the presence of stenosis >50%. Neck CTA 08/10/18 VERTEBRAL ARTERIES: Normal bilateral vertebral arteries. IMPRESSION: Diffuse atherosclerotic disease of the carotid arteries. There is 50-69% stenosis on the left. Less than 50% stenosis on the right. There is a moderate size noncalcified plaque within the proximal right internal carotid artery. These images were reviewed on 09/16/20. Head CTA 08/10/18 IMPRESSION: No demonstrated aneurysm or hemodynamically significant stenosis. On my review of his head CT images (reviewed 09/16/20), the study revealed mild diffuse cerebral atrophy Carotid Duplex 07/13/19 Interpretation Summary Irregular plague at the proximal right internal and external carotid arteries. 50-69% stenosis right internal carotid <50% stenosis right external carotid Irregular calcific plague left mid common c (more content not included)... Normal [facility] Urine Sodiumon 07-12-2024 Sodium (U) [Moles/Vol] 130 mmol/L Normal Not Establ. [facility] Comment on above: Performed By: #### L [id number] #### [facility] [address] [place], [place] [address]sc[place], [address] Urine sodium measurement (mo les/volume)Ordered By: Tina Sutherland on 07-12-2024 Sodium (U) [Moles/Vol] 130 mmol/L Not Establ. [facility] Absolute neutrophil countOrd ered By: Gosia Delaney on 06-21-2024 Neutrophils (Bld) [#/Vol] 5.6 10*3/uL 2.0-7.7 [facility] Albumin to globulin ratioOrd ered By: Gosia Delaney on 06-21-2024 Albumin/Globulin [Mass ratio] 1.1 {ratio} 0.9-2.4 [facility] Basophil percentageOrdered B y: Gosia Delaney on 06-21-2024 Basophils/100 WBC (Bld) 0.5 % 0-1 [facility] Bilirubin, totalOrdered By: Gosia Delaney on 06-21-2024 Bilirubin [Mass/Vol] 0.60 mg/dL 0.20-1.00 [facility] Comment on above: For patients on eltr ombopag therapy, use of Dimension [place] TBIL is not recommended. Blood urea nitrogen (BUN)/cr eatinine ratioOrdered By: Gosia Delaney on 06-21-2024 Urea nitrogen/Creatinine [Mass ratio] 12.2 mg/mg 10- [facility] CBC W/Diff, Automatedon 06-10 Absolute Lymph 2.18 X10 3/uL Normal 0.83-4.51 [facility] Comment on above: Order Comment: Order Date: 01/13/24 Order Info: 2955-3 - GEORGE Performed By: #### L [id number] #### [facility] [address] [place], [address] Absolute Neut 5.6 X10 3/uL Normal 2.0-7.7 [facility] Comment on above: Order Comment: Order Date: 01/13/24 Order Info: 2955-3 - GEORGE Performed By: #### [id number] #### [facility] [address] [place], [address] Basophils/100 WBC (Bld) 0.5 % Normal 0-1 [facility] Comment on above: Order Comment: Order Date: 01/13/24 Order Info: 2955-3 - GEORGE Performed By: #### L [id number] #### [facility] [address] [place], [address] Eosinophils/100 WBC (Bld) 2.6 % Normal 0-5 [facility] Comment on above: Order Comment: Order Date: 01/13/24 Order Info: 2955-3 - GEORGE Performed By: #### L [id number] #### [facility] [address] [place], [address] Erythrocyte distribution width (RBC) [Ratio] 13.2 % Normal 11.6-14.6 [facility] Comment on above: Order Comment: Order Date: 01/13/24 Order Info: 2955-3 - GEORGE Performed By: #### L [id number] #### [facility] [address] [place], [address] Hematocrit (Bld) [Volume fraction] 43.8 % Normal 40-54 [facility] Comment on above: Order Comment: Order Date: 01/13/24 Order Info: 2955-3 - GEORGE Performed By: #### L [id number] #### [facility] [address] [place], [address] Hemoglobin (Bld) [Mass/Vol] 14.9 g/dL Normal 13.0-16.5 [facility] Comment on above: Order Comment: Order Date: 01/13/24 Order Info: 2955-3 - GEORGE Performed By: #### L [id number] #### [facility] [address] [place], [address] IG% 0.300 Normal 0.0-0.9 [facility] Comment on above: Order Comment: Order Date: 01/13/24 Order Info: 2955-3 - GEORGE Result Comment: IG% - Immature Granulocytes (promyelocytes, myelocytes and metamyelocytes) > 1% indicates that a LEFT SHIFT is Present. Performed By: #### L [id number] #### [facility] [address] [place], [address] Lymphocytes/100 WBC (Bld) 24.9 % Normal 19-41 [facility] Comment on above: Order Comment: Order Date: 01/13/24 Order Info: 2955-3 - GEORGE Performed By: #### L [id number] #### [facility] [address] [place], [address] MCH (RBC) [Entitic mass] 31.3 pg Normal 27.0-32.0 [facility] Comment on above: Order Comment: Order Date: 01/13/24 Order Info: 2955-3 - GEORGE Performed By: #### L [id number] #### [facility] [address] [place], [address] MCHC (RBC) [Mass/Vol] 34.0 g/dL Normal 32-36 [facility] Comment on above: Order Comment: Order Date: 01/13/24 Order Info: 2955-3 - GEORGE Performed By: #### L [id number] #### [facility] [address] [place], [address] MCV (RBC) [Entitic vol] 92.0 fL Normal 80-94 [facility] Comment on above: Order Comment: Order Date: 01/13/24 Order Info: 2955-3 - GEORGE Performed By: #### L [id number] #### [facility] [address] [place], [address] Monocytes/100 WBC (Bld) 7.9 % Normal 0-10 [facility] Comment on above: Order Comment: Order Date: 01/13/24 Order Info: 2955-3 - GEORGE Performed By: #### L [id number] #### [facility] [address] [place], [address] Neutrophils/100 WBC (Bld) 63.8 % Normal 47-70 [facility] Comment on above: Order Comment: Order Date: 01/13/24 Order Info: 2955-3 - GEORGE Performed By: #### L [id number] #### [facility] [address] [place], [address] Nucleated RBC (Bld) [#/Vol] 0 10*3/uL Normal 0-5 [facility] Comment on above: Order Comment: Order Date: 01/13/24 Order Info: 2955-3 - GEORGE Performed By: #### L 501.5500 #### [facility] [address] [place], [address] Platelet mean volume (Bld) [Entitic vol] 11.0 fL Normal 6.2-12.0 [facility] Comment on above: Order Comment: Order Date: 01/13/24 Order Info: 2955-3 - GEORGE Performed By: #### L 501.5500 #### [facility] [address] [place], [address] Platelets (Bld) [#/Vol] 245 10*3/uL Normal 150-450 [facility] Comment on above: Order Comment: Order Date: 01/13/24 Order Info: 2955-3 - GEORGE Performed By: #### L 501.5500 #### [facility] [address] [place], [address] RBC (Bld) [#/Vol] 4.76 10*6/uL Normal 4.6-6.2 [facility] Comment on above: Order Comment: Order Date: 01/13/24 Order Info: 2955-3 - GEORGE Performed By: #### L 501.5500 #### [facility] [address] [place], [address] RDW SD 45.3 fl High 35.1-43.9 [facility] Comment on above: Order Comment: Order Date: 01/13/24 Order Info: 2955-3 - GEORGE Performed By: #### L 501.5500 #### [facility] [address] [place], [address] WBC (Bld) [#/Vol] 8.8 10*3/uL Normal 4.4-11.0 [facility] Comment on above: Order Comment: Order Date: 01/13/24 Order Info: 2955-3 - GEORGE Performed By: #### L 501.5500 #### [facility] [address] [place], [address] Carbon dioxide measurementOr dered By: Gosia Delaney on 06-21-2024 CO2 [Moles/Vol] 27.0 mmol/L 21.0-32.0 [facility] Chloride measurementOrdered By: Gosia Delaney on 06-21-2024 Chloride [Moles/Vol] 97 mmol/L Low 98-107 [facility] Comprehensive Metabolic Prof ilon 06-21-2024 Albumin [Mass/Vol] 4.1 g/dL Normal 3.2-5.0 [facility] Comment on above: Order Comment: Order Date: 01/13/24 Order Info: 2955-3 - GEORGE Performed By: #### L 501.5500 #### [facility] [address] [place], [address] Albumin/Globulin [Mass ratio] 1.1 {ratio} Normal 0.9-2.4 [facility] Comment on above: Order Comment: Order Date: 01/13/24 Order Info: 2955-3 - GEORGE Performed By: #### L 501.5500 #### [facility] [address] [place], [address] ALK P 74 U/L Normal 45-117 [facility] Comment on above: Order Comment: Order Date: 01/13/24 Order Info: 2955-3 - GEORGE Performed By: #### L 501.5500 #### [facility] [address] [place], [address] ALT [Catalytic activity/Vol] 27 U/L Normal 16-61 [facility] Comment on above: Order Comment: Order Date: 01/13/24 Order Info: 2955-3 - GEORGE Performed By: #### L 501.5500 #### [facility] [address] [place], [address] AST [Catalytic activity/Vol] 21 U/L Normal 15-37 [facility] Comment on above: Order Comment: Order Date: 01/13/24 Order Info: 2955-3 - GEORGE Performed By: #### L 501.5500 #### [facility] [address] [place], [address] Bilirubin [Mass/Vol] 0.60 mg/dL Normal 0.20-1.00 [facility] Comment on above: Order Comment: Order Date: 01/13/24 Order Info: 2955-3 - GEORGE Result Comment: For patients on eltrombopag therapy, use of Dimension Vichy TBIL is not recommended. Performed By: #### L 501.5500 #### [facility] [address] [place], [address] BUN/CRE 12.2 RATIO Normal 10-20 [facility] Comment on above: Order Comment: Order Date: 01/13/24 Order Info: 2955-3 - GEORGE Performed By: #### L 501.5500 #### [facility] [address] [place], [address] CA,Total 9.3 mg/dL Normal 8.5-10.1 [facility] Comment on above: Order Comment: Order Date: 01/13/24 Order Info: 2955-3 - GEORGE Performed By: #### L 501.5500 #### [facility] [address] [place], [address] Chloride [Moles/Vol] 97 mmol/L Low 98-107 [facility] Comment on above: Order Comment: Order Date: 01/13/24 Order Info: 2955-3 - GEORGE Performed By: #### L 501.5500 #### [facility] [address] [place], [address] CO2 [Moles/Vol] 27.0 mmol/L Normal 21.0-32.0 [facility] Comment on above: Order Comment: Order Date: 01/13/24 Order Info: 2955-3 - GEORGE Performed By: #### L 501.5500 #### [facility] [address] [place], [address] Creatinine [Mass/Vol] 1.23 mg/dL Normal 0.70-1.30 [facility] Comment on above: Order Comment: Order Date: 01/13/24 Order Info: 2955-3 - GEORGE Result Comment: The validity of the calculated GFR GFRAA in patients over 70 years has not been determined. Clinical correlation is essential. Performed By: #### L 501.5500 #### [facility] [address] [place], [address] EST GFR - AA 75 mL/min Normal >60 [facility] Comment on above: Order Comment: Order Date: 01/13/24 Order Info: 2955-3 - GEORGE Result Comment: Afri can Macedonian GFR Calc Performed By: #### L [id number] #### [facility] [address] [place], [address] GAP 8 Normal 5-15 [facility] Comment on above: Order Comment: Order Date: 01/13/24 Order Info: 2955-3 - GEORGE Performed By: #### L [id number] #### [facility] [address] [place], [address] GFR/1.73 sq M.predicted among non-blacks MDRD (S/P/Bld) [Vol rate/Area] 62 mL/min/{1.73_m2} Normal >60 [facility] Comment on above: Order Comment: Order Date: 01/13/24 Order Info: 2955-3 - GEORGE Result Comment: Non- GFR Calc Performed By: #### L 501.5500 #### [facility] [address] [place], [address] Globulin (S) [Mass/Vol] 3.6 g/dL Normal 2.2-4.2 [facility] Comment on above: Order Comment: Order Date: 01/13/24 Order Info: 2955-3 - GEORGE Performed By: #### L [id number] #### [facility] [address] [place], [address] Glucose [Mass/Vol] 95 mg/dL Normal 74-106 [facility] Comment on above: Order Comment: Order Date: 01/13/24 Order Info: 2955-3 - GEORGE Performed By: #### L 501.5500 #### [facility] [address] [place], [address] Potassium [Moles/Vol] 4.3 mmol/L Normal 3.5-5.1 [facility] Comment on above: Order Comment: Order Date: 01/13/24 Order Info: 2955-3 - GEORGE Performed By: #### L 501.5500 #### [facility] [address] [place], [address] Sodium [Moles/Vol] 132 mmol/L Low 136-145 [facility] Comment on above: Order Comment: Order Date: 01/13/24 Order Info: 2955-3 - GEORGE Performed By: #### L 501.5500 #### [facility] [address] [place], [address] T PROT 7.7 g/dL Normal 6.4-8.2 [facility] Comment on above: Order Comment: Order Date: 01/13/24 Order Info: 2955-3 - GEORGE Performed By: #### L 501.5500 #### [facility] [address] [place], [address] Urea nitrogen [Mass/Vol] 15 mg/dL Normal 7-18 [facility] Comment on above: Order Comment: Order Date: 01/13/24 Order Info: 2955-3 - GEORGE Performed By: #### L 501.5500 #### [facility] [address] [place], [address] Eosinophil percentageOrdered By: Gosia Delaney on 06-21-2024 Eosinophils/100 WBC (Bld) 2.6 % 0-5 [facility] Erythrocyte distribution wid th ratioOrdered By: Gosia Delaney on 06-21-2024 Erythrocyte distribution width (RBC) [Ratio] 13.2 % 11.6-14.6 [facility] Erythrocyte distribution wid th standard deviationOrdered By: Gosia Delaney on 06-21-2024 Erythrocyte distribution width (RBC) [Entitic vol] 45.3 fL High 35.1-43.9 [facility] Estimated glomerular filtrat ion rate (GFR) AmericanOrdered By: Gosia Delaney on 06-21-2024 Estimated GFR (MDRD) Amer 75 mL/min >60 [facility] Comment on above: GFR Calc Glomerular filtration rate ( GFR) estimationOrdered By: Gosia Delaney on 06-21-2024 Estimated GFR (MDRD) Non-Af Amer 62 mL/min >60 [facility] Comment on above: Non- GFR Calc Glucose measurementOrdered B y: Gosia Delaney on 06-21-2024 Glucose [Mass/Vol] 95 mg/dL 74-106 [facility] Hematocrit Auto (Bld) [Volum e fraction]Ordered By: Gosia Delaney on 06-21-2024 Hematocrit (Bld) [Volume fraction] 43.8 % 40-54 [facility] Hemoglobin measurementOrdere d By: Gosia Delaney on 06-21-2024 Hemoglobin (Bld) [Mass/Vol] 14.9 g/dL 13.0-16.5 [facility] Immature granulocytes/100 WB C Auto (Bld)Ordered By: Gosia Delaney on 06-21-2024 Immature granulocytes/100 WBC (Bld) 0.300 % 0.0-0.9 [facility] Comment on above: IG% - Immature Granu locytes (promyelocytes, myelocytes and metamyelocytes) > 1% indicates that a LEFT SHIFT is Present. Laboratory - Chemistry and C hemistry - challengeOrdered By: Gosia Delaney on 06-21-2024 AST [Catalytic activity/Vol] 21 U/L 15-37 [facility] Lymphocytes Auto (Unsp spec) [#/Vol]Ordered By: Gosia Delaney on 06-21-2024 Lymphocytes (Bld) [#/Vol] 2.18 10*3/uL 0.83-4.5 1 [facility] Lymphocytes/100 WBC Auto (Un sp spec)Ordered By: Gosia Delaney on 06-21-2024 Lymphocytes/100 WBC (Bld) 24.9 % 19-41 [facility] MCV (mean corpuscular volume ) determinationOrdered By: Gosia Delaney on 06-21-2024 MCV (RBC) [Entitic vol] 92.0 fL 80-94 [facility] Magnesiumon 06-21-2024 Magnesium [Mass/Vol] 2.2 mg/dL Normal 1.6-2.6 [facility] Comment on above: Order Comment: Order Date: 01/13/24 Order Info: 2955-3 - GEORGE Performed By: #### L 501.5500 #### [facility] [address] [place], [place], [address] Magnesium measurementOrdered By: Gosia Delaney on 06-21-2024 Magnesium [Mass/Vol] 2.2 mg/dL 1.6-2.6 [facility] Mean corpuscular hemoglobin (MCH) determinationOrdered By: Gosia Delaney on 06-21-2024 MCH (RBC) [Entitic mass] 31.3 pg 27.0-32.0 [facility] Mean corpuscular hemoglobin concentration (MCHC) determinationOrdered By: Gosia Delaney on 06-21-2024 MCHC (RBC) [Mass/Vol] 34.0 g/dL 32-36 [facility] Mean platelet volume determi nationOrdered By: Gosia Delaney on 06-21-2024 Platelet mean volume (Bld) [Entitic vol] 11.0 fL 6.2-12.0 [facility] Microalb:Creat Ratio,Random URon 06-21-2024 Creatinine [Mass/Vol] 78.60 mg/dL Normal NO RAN GE EST. [facility] Comment on above: Order Comment: Order Date: 01/13/24 Order Info: 2955-3 - GEORGE Performed By: #### L [id number] #### [facility] [address] [place], [place], [address] MALB:CRE 38.8 mg/g CRE High <30 mg/g CRE [facility] Comment on above: Order Comment: Order Date: 01/13/24 Order Info: 2955-3 - GEORGE Performed By: #### L [id number] #### [facility] [address] [place], [place], [address] MICROALBUMIN,UR 30.5 mg/L Normal NO RANGE EST. [facility] Comment on above: Order Comment: Order Date: 01/13/24 Order Info: 2955-3 - GEORGE Performed By: #### L [id number] #### [facility] [address] [place], [place], [address] Monocyte percentageOrdered B y: Gosia Delaney on 06-21-2024 Monocytes/100 WBC (Bld) 7.9 % 0-10 [facility] Neutrophil percentageOrdered By: Gosia Delaney on 06-21-2024 Neutrophils/100 WBC (Bld) 63.8 % 47-70 [facility] Nucleated red blood cell per centageOrdered By: Gosia Delaney on 06-21-2024 Nucleated RBC/100 WBC (Bld) [Ratio] 0 % 0-5 [facility] Osmolality (U) [Osmolality]O rdered By: Gosia Delaney on 06-21-2024 Urine Osmolality 383 mOsm/KG >50 [facility] Comment on above: Normal Urine Referen ce Ranges Random: 50 - 1200 mOsm/kg H20 depending on fluid intake Random: >850 mOsm/kg after 12 hour fluid restriction 24 hour: ~300 - 900 mOsm/kg H2O Osmolality, Serumon 06-21-19 25 OSMOLALITY,SER 276 mOsm/KG Low 280-301 [facility] Comment on above: Order Comment: Order Date: 01/13/24 Order Info: 2955-3 - GEORGE Performed By: #### L [id number] #### [facility] [address] [place], [place], [address] Osmolality, Urineon 06-21-19 25 OSMOLALITY,UR 383 mOsm/KG Normal [facility] Comment on above: Order Comment: Order Date: 01/13/24 Order Info: 2955-3 - GEORGE Result Comment: Normal Urine Reference Ranges Random: 50 - 1200 mOsm/kg H20 depending on fluid intake Random: >850 mOsm/kg after 12 hour fluid restriction 24 hour: 300 - 900 mOsm/kg H2O Performed By: #### L 501.5500 #### [facility] [address] [place], [place], [address] Osmolality, serumOrdered By: Gosia Delaney on 06-21-2024 Serum Osmolality 276 mOsm/KG Low 280-301 [facility] Platelet countOrdered By: Joni Delaney on 06-21-2024 Platelets (Bld) [#/Vol] 245 10*3/uL 150-450 [facility] Potassium measurementOrdered By: Gosia Delaney on 06-21-2024 Potassium [Moles/Vol] 4.3 mmol/L 3.5-5.1 [facility] RBC Auto (Bld) [#/Vol]Ordere d By: Gosia Delaney on 06-21-2024 RBC (Bld) [#/Vol] 4.76 10*6/uL 4.6-6.2 [facility] Random urine microalbumin me asurementOrdered By: Gosia Delaney on 06-21-2024 Urine Random Microalbumin 30.5 mg/L NO RANGE EST. [facility] Serum anion gap measurementO rdered By: Gosia Delaney on 06-21-2024 Anion gap [Moles/Vol] 8 mmol/L 5-15 [facility] Serum globulin measurementOr dered By: Gosia Delaney on 06-21-2024 Globulin (S) [Mass/Vol] 3.6 g/dL 2.2-4.2 [facility] Serum or plasma alanine gibson otransferase (ALT) measurementOrdered By: Gosia Delaney on 06-21-2024 ALT [Catalytic activity/Vol] 27 U/L 16-61 [facility] Serum or plasma albumin zac urement (mass/volume)Ordered By: Gosia Delaney on 06-21-2024 Albumin [Mass/Vol] 4.1 g/dL 3.2-5.0 [facility] Serum or plasma alkaline rafa sphatase measurementOrdered By: Gosia Delaney on 06-21-2024 ALP [Catalytic activity/Vol] 74 U/L 45-117 [facility] Serum or plasma calcium zac urement (mass/volume)Ordered By: Gosia Delaney on 06-21-2024 Calcium [Mass/Vol] 9.3 mg/dL 8.5-10.1 [facility] Serum or plasma creatinine m easurement (mass/volume)Ordered By: Gosia Delaney on 06-21-2024 Creatinine [Mass/Vol] 1.23 mg/dL 0.70-1.30 [facility] Comment on above: The validity of the calculated GFR & GFRAA in patients over 70 years has not been determined. Clinical correlation is essential. Serum or plasma urea nitroge n measurement (mass/volume)Ordered By: Gosia Delaney on 06-21-2024 Urea nitrogen [Mass/Vol] 15 mg/dL 7-18 [facility] Sodium levelOrdered By: Gosia Delaney on 06-21-2024 Sodium [Moles/Vol] 132 mmol/L Low 136-145 [facility] Sodium urOrdered By: Gosia ugalde on 06-21-2024 Sodium (U) [Moles/Vol] 48 mmol/L Not Establ. [facility] TSH QnOrdered By: Gosia Delaney on 06-21-2024 Thyroid Stimulating Hormone (TSH) 2.900 uIU/mL 0.358-3.740 [facility] Thyroid Stim Hormone (TSH)on 06-21-2024 TSH 2.900 uIU/mL Normal 0.358-3.740 [facility] Comment on above: Order Comment: Order Date: 01/13/24 Order Info: 2955-3 - GEORGE Performed By: #### L [id number] #### [facility] [address] [place], [place], [address] Total proteinOrdered By: Julia Delaney on 06-21-2024 Protein [Mass/Vol] 7.7 g/dL 6.4-8.2 [facility] Urine Sodiumon 06-21-2024 Sodium (U) [Moles/Vol] 48 mmol/L Normal Not Establ. [facility] Comment on above: Order Comment: Order Date: 01/13/24 Order Info: 2955-3 - GEORGE Performed By: #### L [id number] #### [facility] [address] [place], [address] Urine albumin/creatinine rat io for detection of microalbuminuriaOrdered By: Gosia Delaney on 06-21-2024 Urine Microalbumin/Creatinine Ratio 38.8 mg/g CRE High <30 [facility] Urine creatinine measurement (mass/volume)Ordered By: Gosia Delaney on 06-21-2024 Creatinine (U) [Mass/Vol] 78.60 mg/dL NO RANGE EST. [facility] White blood cell (WBC) count Ordered By: Gosia Delaney on 06-21-2024 WBC (Bld) [#/Vol] 8.8 10*3/uL 4.4-11.0 [facility] Osmolality, Urineon 01-19-20 24 OSMOLALITY,UR 551 mOsm/KG Normal [facility] Comment on above: Order Comment: Order Date: 01/13/24 Order Info: 2955-3 - GEORGE Result Comment: Normal Urine Reference Ranges Random: 50 - 1200 mOsm/kg H20 depending on fluid intake Random: >850 mOsm/kg after 12 hour fluid restriction 24 hour: 300 - 900 mOsm/kg H2O Performed By: #### L 501.5500 #### [facility] [address] [place], [place], [address] Urine Sodiumon 01-19-2024 Sodium (U) [Moles/Vol] 87 mmol/L Normal Not Establ. [facility] Comment on above: Order Comment: Order Date: 01/13/24 Order Info: 2955-3 - GEORGE Performed By: #### L [id number] #### [facility] [address] [place], [place], [address] L501.5101on 01-15-2024 GGTP 41 IU/L Normal 0-65 [facility] Comment on above: Order Comment: Order Date: 01/13/24 Order Info: 2955-3 - GEORGE Result Comment: Perf ormed at: CB - [facility] [address] [id number] Sales Development Executive: Aquilino Gómez PhD, Phone: [phone] Performed By: #### L [id number] #### [facility] [address] [place], [place], [address] Comprehensive Metabolic Prof ilon 01-14-2024 Albumin [Mass/Vol] 3.9 g/dL Normal 3.2-5.0 [facility] Comment on above: Order Comment: Order Date: 01/13/24 Order Info: 0786-1 - CMP Performed By: #### L 500.4050, L501.7300, L501.5101 #### [facility] [address] [place], [address] Albumin/Globulin [Mass ratio] 1.1 {ratio} Normal 0.9-2.4 [facility] Comment on above: Order Comment: Order Date: 01/13/24 Order Info: 0786-1 - CMP Performed By: #### L 500.4050, L501.7300, L501.5101 #### [facility] [address] [place], [address] ALK P 90 U/L Normal 45-117 [facility] Comment on above: Order Comment: Order Date: 01/13/24 Order Info: 0786-1 - CMP Performed By: #### L 500.4050, L501.7300, L501.5101 #### [facility] [address] [place], [address] ALT [Catalytic activity/Vol] 28 U/L Normal 16-61 [facility] Comment on above: Order Comment: Order Date: 01/13/24 Order Info: 0786-1 - CMP Performed By: #### L 500.4050, L501.7300, L501.5101 #### [facility] [address] [place], [address] AST [Catalytic activity/Vol] 17 U/L Normal 15-37 [facility] Comment on above: Order Comment: Order Date: 01/13/24 Order Info: 0786-1 - CMP Performed By: #### L 500.4050, L501.7300, L501.5101 #### [facility] [address] [place], [address] Bilirubin [Mass/Vol] 0.50 mg/dL Normal 0.20-1.00 [facility] Comment on above: Order Comment: Order Date: 01/13/24 Order Info: 0786-1 - CMP Result Comment: For patients on eltrombopag therapy, use of Dimension [place] TBIL is not recommended. Performed By: #### L 500.4050, L501.7300, L501.5101 #### [facility] [address] [place], [address] BUN/CRE 13.6 RATIO Normal 10-20 [facility] Comment on above: Order Comment: Order Date: 01/13/24 Order Info: 0786-1 - CMP Performed By: #### L 500.4050, L501.7300, L501.5101 #### [facility] [address] [place], [address] CA,Total 9.8 mg/dL Normal 8.5-10.1 [facility] Comment on above: Order Comment: Order Date: 01/13/24 Order Info: 0786-1 - CMP Performed By: #### L 500.4050, L501.7300, L501.5101 #### [facility] [address] [place], [address] Chloride [Moles/Vol] 100 mmol/L Normal 98-107 [facility] Comment on above: Order Comment: Order Date: 01/13/24 Order Info: 0786-1 - CMP Performed By: #### L 500.4050, L501.7300, L501.5101 #### [facility] [address] [place], [address] CO2 [Moles/Vol] 26.0 mmol/L Normal 21.0-32.0 [facility] Comment on above: Order Comment: Order Date: 01/13/24 Order Info: 0786-1 - CMP Performed By: #### L 500.4050, L501.7300, L501.5101 #### [facility] [address] [place], [address] Creatinine [Mass/Vol] 1.25 mg/dL Normal 0.70-1.30 [facility] Comment on above: Order Comment: Order Date: 01/13/24 Order Info: 0786-1 - CMP Result Comment: The validity of the calculated GFR GFRAA in patients over 70 years has not been determined. Clinical correlation is essential. Performed By: #### L 500.4050, L501.7300, L501.5101 #### [facility] [address] [place], [address] EST GFR - AA 73 mL/min Normal >60 [facility] Comment on above: Order Comment: Order Date: 01/13/24 Order Info: 0786-1 - CMP Result Comment: Afri can Macedonian GFR Calc Performed By: #### L 500.4050, L501.7300, L501.5101 #### [facility] [address] [place], [address] GAP 7 Normal 5-15 [facility] Comment on above: Order Comment: Order Date: 01/13/24 Order Info: 0786-1 - CMP Performed By: #### L 500.4050, L501.7300, L501.5101 #### [facility] [address] [place], [address] GFR/1.73 sq M.predicted among non-blacks MDRD (S/P/Bld) [Vol rate/Area] 61 mL/min/{1.73_m2} Normal >60 [facility] Comment on above: Order Comment: Order Date: 01/13/24 Order Info: 0786-1 - CMP Result Comment: Non- GFR Calc Performed By: #### L 500.4050, L501.7300, L501.5101 #### [facility] [address] [place], [address] Globulin (S) [Mass/Vol] 3.5 g/dL Normal 2.2-4.2 [facility] Comment on above: Order Comment: Order Date: 01/13/24 Order Info: 0786-1 - CMP Performed By: #### L 500.4050, L501.7300, L501.5101 #### [facility] [address] [place], [address] Glucose [Mass/Vol] 100 mg/dL Normal 74-106 [facility] Comment on above: Order Comment: Order Date: 01/13/24 Order Info: 0786-1 - CMP Result Comment: Fast ing Glucose result from 100 to 125 mg/dL suggests IMPAIRED HOMEOSTASIS per A.D.A. criteria. Performed By: #### L 500.4050, L501.7300, L501.5101 #### [facility] [address] [place], [address] Potassium [Moles/Vol] 3.9 mmol/L Normal 3.5-5.1 [facility] Comment on above: Order Comment: Order Date: 01/13/24 Order Info: 0786-1 - CMP Performed By: #### L 500.4050, L501.7300, L501.5101 #### [facility] [address] [place], [address] Sodium [Moles/Vol] 133 mmol/L Low 136-145 [facility] Comment on above: Order Comment: Order Date: 01/13/24 Order Info: 0786-1 - CMP Performed By: #### L 500.4050, L501.7300, L501.5101 #### [facility] [address] [place], [address] T PROT 7.4 g/dL Normal 6.4-8.2 [facility] Comment on above: Order Comment: Order Date: 01/13/24 Order Info: [id number] - CMP Performed By: #### L 500.4050, L501.7300, L501.5101 #### [facility] [address] [place], [address] Urea nitrogen [Mass/Vol] 17 mg/dL Normal 7-18 [facility] Comment on above: Order Comment: Order Date: 01/13/24 Order Info: [id number] - CMP Performed By: #### L 500.4050, L501.7300, L501.5101 #### [facility] [address] [place], [address] Osmolality, Serumon 01-14-20 24 OSMOLALITY,SER 289 mOsm/KG Normal 280-301 [facility] Comment on above: Order Comment: Order Date: 01/13/24 Order Info: [id number] - OS Performed By: #### L 500.4050, L501.7300, L501.5101 #### [facility] [address] [place], [address] CBC W/Diff, Automatedon 12-08 Absolute Lymph 1.85 X10 3/uL Normal 0.83-4.51 [facility] Comment on above: Order Comment: Order Date: 12/20/23 Order Info: [id number] - CBCD Comments: cc copy to Dr. Kayli Polo Performed By: #### L 100.0100, L500.4050, L506.0400, L500.4100, L501.9520 #### [facility] [address] [place], [address] Absolute Neut 4.5 X10 3/uL Normal 2.0-7.7 [facility] Comment on above: Order Comment: Order Date: 12/20/23 Order Info: [id number] - CBCD Comments: cc copy to Dr. Kayli Polo Performed By: #### L 100.0100, L500.4050, L506.0400, L500.4100, L501.9520 #### [facility] [address] [place], [address] Basophils/100 WBC (Bld) 0.7 % Normal 0-1 [facility] Comment on above: Order Comment: Order Date: 12/20/23 Order Info: [id number] - CBCD Comments: cc copy to Dr. Kayli Polo Performed By: #### L 100.0100, L500.4050, L506.0400, L500.4100, L501.9520 #### [facility] [address] [place], [address] Eosinophils/100 WBC (Bld) 4.1 % Normal 0-5 [facility] Comment on above: Order Comment: Order Date: 12/20/23 Order Info: [id number] - CBCD Comments: cc copy to Dr. Kayli Polo Performed By: #### L 100.0100, L500.4050, L506.0400, L500.4100, L501.9520 #### [facility] [address] [place], [address] Erythrocyte distribution width (RBC) [Ratio] 13.7 % Normal 11.6-14.6 [facility] Comment on above: Order Comment: Order Date: 12/20/23 Order Info: 0184-1 - CBCD Comments: cc copy to Dr. Kayli Polo Performed By: #### L 100.0100, L500.4050, L506.0400, L500.4100, L501.9520 #### [facility] [address] [place], [address] Hematocrit (Bld) [Volume fraction] 44.4 % Normal 40-54 [facility] Comment on above: Order Comment: Order Date: 12/20/23 Order Info: [id number] - CBCD Comments: cc copy to Dr. Kayli Polo Performed By: #### L 100.0100, L500.4050, L506.0400, L500.4100, L501.9520 #### [facility] [address] [place], [address] Hemoglobin (Bld) [Mass/Vol] 14.9 g/dL Normal 13.0-16.5 [facility] Comment on above: Order Comment: Order Date: 12/20/23 Order Info: 0184- - CBCD Comments: cc copy to Dr. Kayli Polo Performed By: #### L 100.0100, L500.4050, L506.0400, L500.4100, L501.9520 #### [facility] [address] [place], [address] IG% 0.300 Normal 0.0-0.9 [facility] Comment on above: Order Comment: Order Date: 12/20/23 Order Info: 018- - CBCD Comments: cc copy to Dr. Kayli Polo Result Comment: IG% - Immature Granulocytes (promyelocytes, myelocytes and metamyelocytes) > 1% indicates that a LEFT SHIFT is Present. Performed By: #### L 100.0100, L500.4050, L506.0400, L500.4100, L501.9520 #### [facility] [address] [place], [address] Lymphocytes/100 WBC (Bld) 25.3 % Normal 19-41 [facility] Comment on above: Order Comment: Order Date: 12/20/23 Order Info: 0184- - CBCD Comments: cc copy to Dr. Kayli Polo Performed By: #### L 100.0100, L500.4050, L506.0400, L500.4100, L501.9520 #### [facility] [address] [place], [address] MCH (RBC) [Entitic mass] 30.8 pg Normal 27.0-32.0 [facility] Comment on above: Order Comment: Order Date: 12/20/23 Order Info: 018- - CBCD Comments: cc copy to Dr. Kayli Polo Performed By: #### L 100.0100, L500.4050, L506.0400, L500.4100, L501.9520 #### [facility] [address] [place], [address] MCHC (RBC) [Mass/Vol] 33.6 g/dL Normal 32-36 [facility] Comment on above: Order Comment: Order Date: 12/20/23 Order Info: [id number] - CBCD Comments: cc copy to Dr. Kayli Polo Performed By: #### L 100.0100, L500.4050, L506.0400, L500.4100, L501.9520 #### [facility] [address] [place], [address] MCV (RBC) [Entitic vol] 91.9 fL Normal 80-94 [facility] Comment on above: Order Comment: Order Date: 12/20/23 Order Info: [id number] - CBCD Comments: cc copy to Dr. Kayli Polo Performed By: #### L 100.0100, L500.4050, L506.0400, L500.4100, L501.9520 #### [facility] [address] [place], [address] Monocytes/100 WBC (Bld) 8.5 % Normal 0-10 [facility] Comment on above: Order Comment: Order Date: 12/20/23 Order Info: [id number] - CBCD Comments: cc copy to Dr. Kayli Polo Performed By: #### L 100.0100, L500.4050, L506.0400, L500.4100, L501.9520 #### [facility] [address] [place], [address] Neutrophils/100 WBC (Bld) 61.1 % Normal 47-70 [facility] Comment on above: Order Comment: Order Date: 12/20/23 Order Info: 0184-1 - CBCD Comments: cc copy to Dr. Kayli Polo Performed By: #### L 100.0100, L500.4050, L506.0400, L500.4100, L501.9520 #### [facility] [address] [place], [address] Nucleated RBC (Bld) [#/Vol] 0 10*3/uL Normal 0-5 [facility] Comment on above: Order Comment: Order Date: 12/20/23 Order Info: 0184-1 - CBCD Comments: cc copy to Dr. Kayli Polo Performed By: #### L 100.0100, L500.4050, L506.0400, L500.4100, L501.9520 #### [facility] [address] [place], [address] Platelet mean volume (Bld) [Entitic vol] 10.2 fL Normal 6.2-12.0 [facility] Comment on above: Order Comment: Order Date: 12/20/23 Order Info: 0184-1 - CBCD Comments: cc copy to Dr. Kayli Polo Performed By: #### L 100.0100, L500.4050, L506.0400, L500.4100, L501.9520 #### [facility] [address] [place], [address] Platelets (Bld) [#/Vol] 269 10*3/uL Normal 150-450 [facility] Comment on above: Order Comment: Order Date: 12/20/23 Order Info: 0184-1 - CBCD Comments: cc copy to Dr. Kayli Polo Performed By: #### L 100.0100, L500.4050, L506.0400, L500.4100, L501.9520 #### [facility] [address] [place], [address] RBC (Bld) [#/Vol] 4.83 10*6/uL Normal 4.6-6.2 [facility] Comment on above: Order Comment: Order Date: 12/20/23 Order Info: [id number] - CBCD Comments: cc copy to Dr. Kayli Polo Performed By: #### L 100.0100, L500.4050, L506.0400, L500.4100, L501.9520 #### [facility] [address] [place], [address] RDW SD 46.7 fl High 35.1-43.9 [facility] Comment on above: Order Comment: Order Date: 12/20/23 Order Info: [id number] - CBCD Comments: cc copy to Dr. Kayli Polo Performed By: #### L 100.0100, L500.4050, L506.0400, L500.4100, L501.9520 #### [facility] [address] [place], [address] WBC (Bld) [#/Vol] 7.3 10*3/uL Normal 4.4-11.0 [facility] Comment on above: Order Comment: Order Date: 12/20/23 Order Info: [id number] - CBCD Comments: cc copy to Dr. Kayli Polo Performed By: #### L 100.0100, L500.4050, L506.0400, L500.4100, L501.9520 #### [facility] [address] [place], [address] Comprehensive Metabolic Prof [facility] 12-20-2023 Albumin [Mass/Vol] 4.0 g/dL Normal 3.2-5.0 [facility] Comment on above: Order Comment: Order Date: 12/20/23 Order Info: [id number] - CMP Order Info: [id number] - LIPID Comments: cc copy to Dr. Kayli Polo Order Info: [id number] - TSH Order Info: 3024-7 - T4F cc copy to Dr. Kayli Polo Performed By: #### L 100.0100, L500.4050, L506.0400, L500.4100, L501.9520 #### [facility] [address] [place], [address] Albumin/Globulin [Mass ratio] 1.2 {ratio} Normal 0.9-2.4 [facility] Comment on above: Order Comment: Order Date: 12/20/23 Order Info: [id number] - CMP Order Info: [id number] - LIPID Comments: cc copy to Dr. Kayli Polo Order Info: [id number] - TSH Order Info: 3023-11 T4F cc copy to Dr. Kayli Polo Performed By: #### L 100.0100, L500.4050, L506.0400, L500.4100, L501.9520 #### [facility] [address] [place], [address] ALK P 114 U/L Normal 45-117 [facility] Comment on above: Order Comment: Order Date: 12/20/23 Order Info: 785- - CMP Order Info: [id number] - LIPID Comments: cc copy to Dr. Kayli Polo Order Info: [id number] - TSH Order Info: 3023-11 T4F cc copy to Dr. Kayli Polo Performed By: #### L 100.0100, L500.4050, L506.0400, L500.4100, L501.9520 #### [facility] [address] [place], [address] ALT [Catalytic activity/Vol] 77 U/L High 16-61 [facility] Comment on above: Order Comment: Order Date: 12/20/23 Order Info: [id number] - CMP Order Info: [id number] - LIPID Comments: cc copy to Dr. Kayli Polo Order Info: [id number] - TSH Order Info: 3023-11 T4F cc copy to Dr. Kayli Polo Performed By: #### L 100.0100, L500.4050, L506.0400, L500.4100, L501.9520 #### [facility] [address] [place], [address] AST [Catalytic activity/Vol] 46 U/L High 15-37 [facility] Comment on above: Order Comment: Order Date: 12/20/23 Order Info: 785- - CMP Order Info: [id number] - LIPID Comments: cc copy to Dr. Kayli Polo Order Info: [id number] - TSH Order Info: 3023-11 T4F cc copy to Dr. Kayli Polo Performed By: #### L 100.0100, L500.4050, L506.0400, L500.4100, L501.9520 #### [facility] [address] [place], [address] Bilirubin [Mass/Vol] 0.60 mg/dL Normal 0.20-1.00 [facility] Comment on above: Order Comment: Order Date: 12/20/23 Order Info: 785-05 - CMP Order Info: [id number] - LIPID Comments: cc copy to Dr. Kayli Polo Order Info: 3 - TSH Order Info: 3023-11 T4F cc copy to Dr. Kayli Polo Result Comment: For patients on eltrombopag therapy, use of Dimension Vichy TBIL is not recommended. Performed By: #### L 100.0100, L500.4050, L506.0400, L500.4100, L501.9520 #### [facility] [address] [place], [address] BUN/CRE 17.8 RATIO Normal 10-20 [facility] Comment on above: Order Comment: Order Date: 12/20/23 Order Info: [id number] - CMP Order Info: - LIPID Comments: cc copy to Dr. Kayli Polo Order Info: [id number] - TSH Order Info: 3023-11 T4F cc copy to Dr. Kayli Polo Performed By: #### L 100.0100, L500.4050, L506.0400, L500.4100, L501.9520 #### [facility] [address] [place], [address] CA,Total 9.7 mg/dL Normal 8.5-10.1 [facility] Comment on above: Order Comment: Order Date: 12/20/23 Order Info: 785-05 - CMP Order Info: [id number] - LIPID Comments: cc copy to Dr. Kayli Polo Order Info: 3 - TSH Order Info: 3023-11 T4F cc copy to Dr. Kayli Polo Performed By: #### L 100.0100, L500.4050, L506.0400, L500.4100, L501.9520 #### [facility] [address] [place], [address] Chloride [Moles/Vol] 99 mmol/L Normal 98-107 [facility] Comment on above: Order Comment: Order Date: 12/20/23 Order Info: 86-1 - CMP Order Info: [id number] - LIPID Comments: cc copy to Dr. Kayli Polo Order Info: 3 - TSH Order Info: 3023-11 T4F cc copy to Dr. Kayli Polo Performed By: #### L 100.0100, L500.4050, L506.0400, L500.4100, L501.9520 #### [facility] [address] [place], [address] CO2 [Moles/Vol] 29.0 mmol/L Normal 21.0-32.0 [facility] Comment on above: Order Comment: Order Date: 12/20/23 Order Info: 785-05 - CMP Order Info: [id number] - LIPID Comments: cc copy to Dr. Kayli Polo Order Info: [id number] - TSH Order Info: 3023-11 T4F cc copy to Dr. Kayli Polo Performed By: #### L 100.0100, L500.4050, L506.0400, L500.4100, L501.9520 #### [facility] [address] [place], [address] Creatinine [Mass/Vol] 1.07 mg/dL Normal 0.70-1.30 [facility] Comment on above: Order Comment: Order Date: 12/20/23 Order Info: 785- - CMP Order Info: [id number] - LIPID Comments: cc copy to Dr. Kayli Polo Order Info: 3 - TSH Order Info: 3023-11 T4F cc copy to Dr. Kayli Polo Result Comment: The validity of the calculated GFR GFRAA in patients over 70 years has not been determined. Clinical correlation is essential. Performed By: #### L 100.0100, L500.4050, L506.0400, L500.4100, L501.9520 #### [facility] [address] [place], [address] EST GFR - AA 88 mL/min Normal >60 [facility] Comment on above: Order Comment: Order Date: 12/20/23 Order Info: 785-1 - CMP Order Info: [id number] - LIPID Comments: cc copy to Dr. Kayli Polo Order Info: [id number] - TSH Order Info: 3023-11 T4F cc copy to Dr. Kayli Polo Result Comment: Afri can Macedonian GFR Calc Performed By: #### L 100.0100, L500.4050, L506.0400, L500.4100, L501.9520 #### [facility] [address] [place], [address] GAP 4 Low 5-15 [facility] Comment on above: Order Comment: Order Date: 12/20/23 Order Info: 785-05 - CMP Order Info: [id number] - LIPID Comments: cc copy to Dr. Kayli Polo Order Info: [id number] - TSH Order Info: 3023-11 T4F cc copy to Dr. Kayli Polo Performed By: #### L 100.0100, L500.4050, L506.0400, L500.4100, L501.9520 #### [facility] [address] [place], [address] GFR/1.73 sq M.predicted among non-blacks MDRD (S/P/Bld) [Vol rate/Area] 73 mL/min/{1.73_m2} Normal >60 [facility] Comment on above: Order Comment: Order Date: 12/20/23 Order Info: 785-1 - CMP Order Info: [id number] - LIPID Comments: cc copy to Dr. Kayli Polo Order Info: 3 - TSH Order Info: 3023-11 T4F cc copy to Dr. Kayli Polo Result Comment: Non- GFR Calc Performed By: #### L 100.0100, L500.4050, L506.0400, L500.4100, L501.9520 #### [facility] [address] [place], [address] Globulin (S) [Mass/Vol] 3.3 g/dL Normal 2.2-4.2 [facility] Comment on above: Order Comment: Order Date: 12/20/23 Order Info: 785-1 - CMP Order Info: [id number] - LIPID Comments: cc copy to Dr. Kayli Polo Order Info: [id number] - TSH Order Info: 3023-11 T4 cc copy to Dr. Kayli Polo Performed By: #### L 100.0100, L500.4050, L506.0400, L500.4100, L501.9520 #### [facility] [address] [place], [address] Glucose [Mass/Vol] 104 mg/dL Normal 74-106 [facility] Comment on above: Order Comment: Order Date: 12/20/23 Order Info: 785-05 - CMP Order Info: [id number] - LIPID Comments: cc copy to Dr. Kayli Polo Order Info: [id number] - TSH Order Info: 3023-[address] Kayli Polo Result Comment: Fast ing Glucose result from 100 to 125 mg/dL suggests IMPAIRED HOMEOSTASIS per A.D.A. criteria. Performed By: #### L 100.0100, L500.4050, L506.0400, L500.4100, L501.9520 #### [facility] [address] [place], [address] Potassium [Moles/Vol] 4.2 mmol/L Normal 3.5-5.1 [facility] Comment on above: Order Comment: Order Date: 12/20/23 Order Info: 07-1 - CMP Order Info: [id number] - LIPID Comments: cc copy to Dr. Kayli Polo Order Info: [id number] - TSH Order Info: 3023-11 T4F cc copy to Dr. Kayli Polo Performed By: #### L 100.0100, L500.4050, L506.0400, L500.4100, L501.9520 #### [facility] [address] [place], [place], [id number] Sodium [Moles/Vol] 132 mmol/L Low 136-145 [facility] Comment on above: Order Comment: Order Date: 12/20/23 Order Info: 86-1 - CMP Order Info: [id number] - LIPID Comments: cc copy to Dr. Kayli Polo Order Info: 3 - TSH Order Info: 3023-11 T4F cc copy to Dr. Kayli Polo Performed By: #### L 100.0100, L500.4050, L506.0400, L500.4100, L501.9520 #### [facility] [address] [place], [place], [address] T PROT 7.3 g/dL Normal 6.4-8.2 [facility] Comment on above: Order Comment: Order Date: 12/20/23 Order Info: 785-05 - CMP Order Info: [id number] - LIPID Comments: cc copy to Dr. Kayli Polo Order Info: [id number] - TSH Order Info: 3023-11 T4F cc copy to Dr. Kayli Polo Performed By: #### L 100.0100, L500.4050, L506.0400, L500.4100, L501.9520 #### [facility] [address] [place], [address] Urea nitrogen [Mass/Vol] 19 mg/dL High 7-18 [facility] Comment on above: Order Comment: Order Date: 12/20/23 Order Info: 86-1 - CMP Order Info: [id number] - LIPID Comments: cc copy to Dr. Kayli Polo Order Info: 3 - TSH Order Info: 3023-11 T4F cc copy to Dr. Kayli Polo Performed By: #### L 100.0100, L500.4050, L506.0400, L500.4100, L501.9520 #### [facility] [address] [place], [address] Lipid Profileon 12-20-2023 Cholesterol [Mass/Vol] 139 mg/dL Normal 200 [facility] Comment on above: Order Comment: Order Date: 12/20/23 Order Info: 0786-1 - CMP Order Info: [id number] - LIPID Comments: cc copy to Dr. Kayli Polo Order Info: 3 - TSH Order Info: 3023-11 T4F cc copy to Dr. Kayli Polo Result Comment: <200 mg/dL Desirable 200-240 mg/dL Borderline >240 mg/dL High Risk Performed By: #### L 100.0100, L500.4050, L506.0400, L500.4100, L501.9520 #### [facility] [address] [place], [address] Cholesterol in HDL [Mass/Vol] 48 mg/dL Normal [facility] Comment on above: Order Comment: Order Date: 12/20/23 Order Info: 785-05 - CMP Order Info: [id number] - LIPID Comments: cc copy to Dr. Kayli Polo Order Info: [id number] - TSH Order Info: 3023-11 T4F cc copy to Dr. Kayli Polo Result Comment: The drugs N-Acetylcysteine and Metamizole may falsely depress this assay. Reference Range HDL <40 mg/dL Low HDL Cholesterol HDL >or= 60 mg/dL High HDL Cholesterol Performed By: #### L 100.0100, L500.4050, L506.0400, L500.4100, L501.9520 #### [facility] [address] [place], [address] Cholesterol in LDL [Mass/Vol] 62 mg/dL Normal 0-130 [facility] Comment on above: Order Comment: Order Date: 12/20/23 Order Info: 0786-1 - CMP Order Info: [id number] - LIPID Comments: cc copy to Dr. Kayli Polo Order Info: 3 - TSH Order Info: 3023-11 T4F cc copy to Dr. Kayli Polo Performed By: #### L 100.0100, L500.4050, L506.0400, L500.4100, L501.9520 #### [facility] [address] [place], [address] Cholesterol in VLDL [Mass/Vol] 29 mg/dL Normal 5-40 [facility] Comment on above: Order Comment: Order Date: 12/20/23 Order Info: 0786-1 - CMP Order Info: [id number] - LIPID Comments: cc copy to Dr. Kayli Polo Order Info: 3013 - TSH Order Info: [id number] T4F cc copy to Dr. Kayli Polo Performed By: #### L 100.0100, L500.4050, L506.0400, L500.4100, L501.9520 #### [facility] [address] [place], [address] Triglyceride [Mass/Vol] 147 mg/dL Normal [facility] Comment on above: Order Comment: Order Date: 12/20/23 Order Info: 0786- - CMP Order Info: [id number] - LIPID Comments: cc copy to Dr. Kayli Polo Order Info: 3013 - TSH Order Info: 3024 T4F cc copy to Dr. Kayli Polo Result Comment: The drugs N-Acetylcysteine and Metamizole may falsely depress this assay. Serum Triglycerides Reference Interval Normal <150 mg/dL Borderline high 150 - 199 mg/dL High 200 - 499 mg/dL Very High > or = 500 mg/dL Performed By: #### L 100.0100, L500.4050, L506.0400, L500.4100, L501.9520 #### [facility] [address] [place], [address] T4 Free Directon 12-20-2023 T4 FREE DIRECT 1.17 ng/dL Normal 0.76-1.46 [facility] Comment on above: Order Comment: Order Date: 12/20/23 Order Info: 0786-1 - CMP Order Info: [id number] - LIPID Comments: cc copy to Dr. Kayli Polo Order Info: [id number] - TSH Order Info: [id number] - T4F cc copy to Dr. Kayli Polo Performed By: #### L 100.0100, L500.4050, L506.0400, L500.4100, L501.9520 #### [facility] [address] [place], [place], [address] Thyroid Stim Hormone (TSH)on 12-20-2023 TSH 2.22 uIU/mL Normal 0.358-3.74 [facility] Comment on above: Order Comment: Order Date: 12/20/23 Order Info: 0786-1 - CMP Order Info: [id number] - LIPID Comments: cc copy to Dr. Kayli Polo Order Info: [id number] - TSH Order Info: 3024-7 - T4F cc copy to Dr. Kayli Polo Performed By: #### L 100.0100, L500.4050, L506.0400, L500.4100, L501.9520 #### [facility] [address] [place], [place], [address] CNOVon 08-30-2023 CNOV Office Visit (MICKEY 3) FAHAD DE LEON JR ([id number]) 1955 M Date Time Provider Department 08/30/23 2:00 PM MARY CARMEN CLINE During your visit today, we recorded the following information about you: Blood pressure Weight Height 183/90 53.5 kg 1.6 m Mary Carmen Cline MD 08/30/2023 3:29 PM Signed Fahad De Leon Jr is a 68 year old, White male who presents with complaints of stones. On 03 July patient went to the emergency room for evaluation of right upper quadrant pain. He states he had had intermittent episodes of some pain in the right upper quadrant for the last for 5 years but they were more crampy in nature not related to food and only lasted seconds to minutes. This episode was stain in the right upper quadrant. He states that lasted 6 hours. He did have some nausea and dry heaves. He had no fever. He denies any pancreatitis or jaundice. He was seen in the emergency room where they did a CT scan of his chest to rule out a PE and he was found not to have any evidence of a pulmonary embolism. But he did have a couple calcified stones and a distended ladder. His lipase was normal his white count was normal and he had some mild elevations of his liver function test but his alkaline phosphatase and bilirubin were normal his total protein and albumin was also normal. CT of his chest did not describe any morphologic issues with his liver. He is here now for evaluation. PAST MEDICAL HISTORY Diagnosis Date Carotid atherosclerosis Cataract COPD (chronic obstructive pulmonary disease) (HCC) Elevated TSH Essential hypertension Hypothyroidism Leukoplakia of tongue Mixed hyperlipidemia PAST SURGICAL HISTORY Procedure Laterality Date ALVEOLOPLASTY IN CONJUNCTION WITH EXTRACTIONS - FOUR OR MORE TEETH OR TOOTH SPACES, PER QUADRANT PAST SURGICAL HISTORY OF Bowel obstruction and appendectomy at age 6 PAST SURGICAL HISTORY OF Right arthroscopic knee surgery REMV CATARACT EXTRACAP,INSERT LENS 2020 VASECTOMY Social History Tobacco Use Smoking status: Every Day Packs/day: 1 Types: Cigarettes Smokeless tobacco: Never Substance Use Topics Alcohol use: Yes Comment: occasional Drug use: Never FAMILY HISTORY Problem Relation Age of Onset Heart disease Mother Heart disease Father Heart disease Brother ALLERGIES No Known Allergies No question data found. Current Outpatient Medications Medication Sig amLODIPine (NORVASC) 5 mg tablet Take 5 mg by mouth. irbesartan (AVAPRO) 75 mg tablet Take 75 mg by mouth. metoprolol succinate ER (TOPROL XL) 50 mg 24 hr tablet Take by mouth. levothyroxine (SYNTHROID) 25 mcg tablet once daily. propranolol ER (INDERAL LA) 60 mg 24 hr capsule once daily. Telmisartan 20 mg tablet once daily. INCRUSE ELLIPTA 62.5 mcg/actuation inhaler Inhale 1 Puff as instructed once daily. levocetirizine 5 mg tablet Take 5 mg by mouth once daily. atorvastatin (LIPITOR) 40 mg tablet Take 1 tablet by mouth every afternoon. docosahexaenoic acid/epa (FISH OIL ORAL) Take by mouth once daily. MULTIVITAMIN ORAL Take by mouth once daily. ascorbic acid (VITAMIN C ORAL) Take by mouth once daily. LOW-DOSE ASPIRIN ORAL Take by mouth once daily. potassium citrate ER (UROCIT-K) 10 mEq (1,080 mg) Take by mouth once daily. dupilumab (DUPIXENT PEN) 200 mg/1.14 mL pen injection every 2 weeks. No current facility-administered medications for this visit. REVIEW OF SYSTEMS PAIN ASSESSMENT: Negative for pain, history of chronic pain, or current treatment for a chronic pain condition. GENERAL: No weight loss, malaise or fevers NECK: Negative for lumps, goiter, pain and significant neck swelling RESPIRATORY: Negative for cough, hemoptysis, wheezing, COPD, dyspnea or shortness of breath, patient is a smoker CARDIOVASCULAR: Hypertension, history of peripheral vascular disease. GI: See HPI : No history of dysuria, frequency or incontinence MUSCULOSKELETAL: back pain HEMATOLOGY/LYMPHOLOGY: Negative for prolonged bleeding, bruising easily or swollen nodes ENDOCRINE: Negative for cold or heat intolerance, polyuria, polydipsia and goiter PHYSICAL EXAM: BP 183/90 Ht 5' 3 (1.60m) Wt 118 lb (53.5kg) BMI 20.91 kg/(m2). General Appearance: Well appearing, alert, in no acute distress, well-hydrated, well nourished.. Eyes: Normal sclera Skin: Skin texture and turgor normal, no suspicious rashes or lesions, Negative for jaundice or pallor. Neck: Supple, trachea midline Lungs: Lungs clear to auscultation. No wheezing, rhonchi, rales.. Heart: RRR without murmur, gallop, or rubs. No ectopy. Abdomen: Normal abdominal exam, Abdomen soft, non-tender. Bowel sounds normal. No masses, organomegaly, patient with a right lower quadrant scar from an appendectomy as a youth and it appears that he has a feeding tube scar site as well.. Mu (more content not included)... Normal [facility] CNOVon 08-25-2023 CNOV Office Visit (GENSWS ) REAGAN SIMSFAHAD ([id number]) 1955 M Date Time Provider Department 08/25/23 2:45 PM JESSY STAFFORD During your visit today, we recorded the following information about you: Temperature Pulse Blood pressure Weight 98.3 degrees 77/minute 154/68 54.2 kg Height 1.6 m Naila Looney MA 08/25/2023 2:58 PM Signed REVIEW OF SYSTEMS: General: The patient denies fatigue, denies weight loss, denies weight gain, denies feeling hot, and denies feelings of cold. Eyes: The patient denies glaucoma, NOTES eye injury/surgery, wears glasses or contacts. Ear/Nose/Throat: The patient denies allergies, denies hayfever, denies ear infections, and denies bloody noses. Cardiovascular: The patient denies chest pain, denies heart disease, NOTES high blood pressure,denies cardiac stent, denies prior heart attack, denies irregular heart beat, NOTES high cholesterol, denies poor circulation, denies heart failure, other cardiac issues, denies claudication, NOTES COPD, denies cold feet, denies peripheral arterial stent. Respiratory: The patient denies tuberculosis, denies pneumonia, denies frequent cough, denies pulmonary embolism, denies shortness of breath, and denies coughing up blood. Gastrointestinal: The patient denies difficulty swallowing, denies acid reflux, denies ulcers, denies vomiting, denies jaundice/hepatitis, NOTES gallbladder problems, denies black or tarry stools, denies hemorrhoids, denies bleeding from rectum, denies diverticulitis, denies constipation, denies diarrhea, denies loss of stool control, and denies hernias. Kidney/Bladder: The patient denies kidney stones, denies urine infections, and denies bloody urine. Skin: The patient denies a history of skin cancer, denies bleeding/changing moles, and denies a history of skin rash. Neurologic: The patient denies a history of epilepsy/convulsions, denies headaches, denies head/spinal injuries, and denies stroke/TIA. Psychiatric: The patient denies psychiatric medications, denies depression, and denies voices, denies substance abuse. Endocrine: The patient NOTES thyroid disorders, denies diabetes, and denies hormonal problems. Hematologic: The patient denies a history of bruising, denies bleeding, and denies anemia, denies blood clots. Infections: The patient NOTES a history of measles and mumps, denies rheumatic fever, and denies sexually transmitted diseases. Musculoskeletal: The patient NOTES back pain/injury, denies back problems, denies sciatica, denies knee/foot trouble, denies arthritis, or denies gout. When was patient's last Mammogram screening? N/A ROSANGELA Holloway, Jessy Mejia MD 08/28/2023 3:26 PM Signed Fahad De Leon Jr 1955 REFERRING PHYSICIAN: No ref. provider found CHIEF COMPLAINT: New Patient and Abdominal Pain HPI: The patient is a 68 year old male presents with abnormal findings on gallbladder ultrasound. He had presented to [facility] ED with right lower rib pain. He had findings of cholelithiasis by CT scan. He has also known elevated LFTS. Has persistently elevated LFTs from labs in March 2023 - AST 757, Alkphos 181, ALT 491, tbili 1.9 - though 07/06/2023 - LFTs were normal He has a history of ETOH use in the past. He was referred to a local general surgeon but the patient states that they would not do his surgery He states that he is presently pain free. He has an unknown liver fibrosis status, as patient has records from an outside medical facility, not available for review in this patient encounter. PAST MEDICAL HISTORY Diagnosis Date Carotid atherosclerosis Cataract COPD (chronic obstructive pulmonary disease) (HCC) Elevated TSH Essential hypertension Hypothyroidism Leukoplakia of tongue Mixed hyperlipidemia PAST SURGICAL HISTORY Procedure Laterality Date ALVEOLOPLASTY IN CONJUNCTION WITH EXTRACTIONS - FOUR OR MORE TEETH OR TOOTH SPACES, PER QU[employer]RANT PAST SURGICAL HISTORY OF Bowel obstruction and appendectomy at age 6 PAST SURGICAL HISTORY OF Right arthroscopic knee surgery REMV CATARACT EXTRACAP,INSERT LENS 2020 VASECTOMY Current Outpatient Medications Medication Sig levothyroxine (SYNTHROID) 25 mcg tablet once daily. propranolol ER (INDERAL LA) 60 mg 24 hr capsule once daily. Telmisartan 20 mg tablet once daily. INCRUSE ELLIPTA 62.5 mcg/actuation inhaler Inhale 1 Puff as instructed once daily. levocetirizine 5 mg tablet Take 5 mg by mouth once daily. atorvastatin (LIPITOR) 40 mg tablet Take 1 tablet by mouth every afternoon. docosahexaenoic acid/epa (FISH OIL ORAL) Take by mouth once daily. MULTIVITAMIN ORAL Take by mouth once daily. ascorbic acid (VITAMIN C ORAL) Take by mouth once daily. LOW-DOSE ASPIRIN ORAL Take by mouth once daily. potassium citrate ER (UROCIT-K) 10 mEq (1,080 mg) Take by mouth once (more content not included)... Normal [facility] Absolute lymphocyte countOrd ered By: Gosia Delaney on 07-06-2023 Lymphocytes Auto (Unsp spec) [#/Vol] 1.85 10*3/uL 0.83-4.51 [facility] Automated lymphocyte count a s percentage of total leukocytesOrdered By: Gosia Delaney on 07-06-2023 Lymphocytes/100 WBC Auto (Unsp spec) 27.5 % 19-41 [facility] Basophil percentageOrdered B y: Gosia Delaney on 07-06-2023 Basophils/100 WBC (Bld) 0.4 % 0-1 [facility] Bilirubin [Mass/Vol] 0.60 mg/dL 0.20-1.00 [facility] Comment on above: For patients on eltr ombopag therapy, use of Dimension [place] TBIL is not recommended. Chloride [Moles/Vol] 102 mmol/L 98-107 [facility] Eosinophils/100 WBC (Bld) 5.3 % 0-5 [facility] Glucose [Mass/Vol] 111 mg/dL 74-106 [facility] Comment on above: Fasting Glucose resu lt from 100 to 125 mg/dL suggests IMPAIRED HOMEOSTASIS per A.D.A. criteria. Hemoglobin (Bld) [Mass/Vol] 15.1 g/dL 13.0-16.5 [facility] Monocytes/100 WBC (Bld) 8.6 % 0-10 [facility] Neutrophils (Bld) [#/Vol] 3.9 10*3/uL 2.0-7.7 [facility] Neutrophils/100 WBC (Bld) 57.9 % 47-70 [facility] Potassium [Moles/Vol] 4.5 mmol/L 3.5-5.1 [facility] Protein [Mass/Vol] 7.7 g/dL 6.4-8.2 [facility] Sodium [Moles/Vol] 134 mmol/L 136-145 [facility] WBC (Bld) [#/Vol] 6.7 10*3/uL 4.4-11.0 [facility] Determination of erythrocyte mean corpuscular volume (MCV)Ordered By: Gosia Delaney on 07-06-2023 MCV (RBC) [Entitic vol] 91.6 fL 80-94 [facility] Erythrocyte distribution wid th ratioOrdered By: Gosia Delaney on 07-06-2023 Erythrocyte distribution width (RBC) [Ratio] 13.1 % 11.6-14.6 [facility] Erythrocyte distribution wid th standard deviationOrdered By: Gosia Delaney on 07-06-2023 Erythrocyte distribution width (RBC) [Entitic vol] 44.2 fL 35.1-43.9 [facility] Hematocrit Auto (Bld) [Volum e fraction]Ordered By: Gosia Delaney on 07-06-2023 Hematocrit (Bld) [Volume fraction] 46.0 % 40-54 [facility] Immature granulocytes/100 WB C Auto (Bld)Ordered By: Gosia Delaney on 07-06-2023 Immature granulocytes/100 WBC (Bld) 0.300 % 0.0-0.9 [facility] Comment on above: IG% - Immature Granu locytes (promyelocytes, myelocytes and metamyelocytes) > 1% indicates that a LEFT SHIFT is Present. Laboratory - Chemistry and C hemistry - challengeOrdered By: Gosia Delaney on 07-06-2023 Albumin/Globulin [Mass ratio] 1.1 {ratio} 0.9-2.4 [facility] ALP [Catalytic activity/Vol] 103 U/L 45-117 [facility] ALT [Catalytic activity/Vol] 45 U/L 16-61 [facility] Amylase [Catalytic activity/Vol] 92 U/L 15-85 [facility] CO2 [Moles/Vol] 28.0 mmol/L 21.0-32.0 [facility] Globulin (S) [Mass/Vol] 3.6 g/dL 2.2-4.2 [facility] Lipase [Catalytic activity/Vol] 21 U/L 13-75 [facility] Comment on above: Please note:LIPASE r evised reference range effective 22. New Lipase methodology. Expected to produce lower values than the previous assay method. NEW Reference Range: 13 - 75 U/L Urea nitrogen/Creatinine [Mass ratio] 12.9 mg/mg 10-20 [facility] Laboratory - Hematology and Cell countsOrdered By: Gosia Delaney on 07-06-2023 MCH (RBC) [Entitic mass] 30.1 pg 27.0-32.0 [facility] MCHC (RBC) [Mass/Vol] 32.8 g/dL 32-36 [facility] Nucleated RBC/100 WBC (Bld) [Ratio] 0 % 0-5 [facility] Platelet mean volume (Bld) [Entitic vol] 11.0 fL 6.2-12.0 [facility] Platelets (Bld) [#/Vol] 243 10*3/uL 150-450 [facility] No Panel InformationOrdered By: Gosia Delaney on 07-06-2023 C-Reactive Protein Extended Range 6.67 mg/L 0.0-3.0 [facility] Comment on above: C-Reactive Protein ( CRP) provides useful information for thediagnosis, therapy and monitoring of inflammatory processesand associated diseases. For the evaluation of Relative Riskfor Cardiovascular Disease, a High Sensitivity CRP (HSCRP)should be ordered. Estimated GFR (MDRD) Amer 69 mL/min >60 [facility] Comment on above: GFR Calc Estimated GFR (MDRD) Non-Af Amer 57 mL/min >60 [facility] Comment on above: Non- GFR Calc RBC Auto (Bld) [#/Vol]Ordere d By: Gosia Delaney on 07-06-2023 RBC (Bld) [#/Vol] 5.02 10*6/uL 4.6-6.2 [facility] Serum or plasma calcium zac urement (mass/volume)Ordered By: Gosia Delaney on 07-06-2023 Calcium [Mass/Vol] 9.7 mg/dL 8.5-10.1 [facility] Serum or plasma creatinine m easurement (mass/volume)Ordered By: Gosia Delaney on 07-06-2023 Creatinine [Mass/Vol] 1.32 mg/dL 0.70-1.30 [facility] Comment on above: The validity of the calculated GFR & GFRAA in patients over 70 years has not been determined. Clinical correlation is essential. Serum or plasma urea nitroge n measurement (mass/volume)Ordered By: Gosia Delaney on 07-06-2023 Urea nitrogen [Mass/Vol] 17 mg/dL 7-18 [facility] Thin prep Papanicolaou smear with manual screeningOrdered By: Gosia Delaney on 07-06-2023 Thin prep Papanicolaou smear with manual screening 4.1 g/dL 3.2-5.0 [facility] Thin prep Papanicolaou smear with manual screening 21 U/L 15-37 [facility] Thin prep Papanicolaou smear with manual screening 4 5-15 [facility] Absolute lymphocyte countOrd ered By: Lionel Ocasio on 07-03-2023 Lymphocytes Auto (Unsp spec) [#/Vol] 1.38 10*3/uL 0.83-4.51 [facility] Automated lymphocyte count a s percentage of total leukocytesOrdered By: Lionel Ocasio on 07-03-2023 Lymphocytes/100 WBC Auto (Unsp spec) 19.8 % 19-41 [facility] Basophil percentageOrdered B y: Lionel Ocasio on 07-03-2023 Basophils/100 WBC (Bld) 0.4 % 0-1 [facility] Bilirubin [Mass/Vol] 0.50 mg/dL 0.20-1.00 [facility] Comment on above: For patients on eltr ombopag therapy, use of Dimension [place] TBIL is not recommended. Chloride [Moles/Vol] 103 mmol/L 98-107 [facility] Eosinophils/100 WBC (Bld) 4.6 % 0-5 [facility] Glucose [Mass/Vol] 105 mg/dL 74-106 [facility] Comment on above: Fasting Glucose resu lt from 100 to 125 mg/dL suggests IMPAIRED HOMEOSTASIS per A.D.A. criteria. Hemoglobin (Bld) [Mass/Vol] 14.4 g/dL 13.0-16.5 [facility] Monocytes/100 WBC (Bld) 7.2 % 0-10 [facility] Neutrophils (Bld) [#/Vol] 4.7 10*3/uL 2.0-7.7 [facility] Neutrophils/100 WBC (Bld) 67.7 % 47-70 [facility] Potassium [Moles/Vol] 4.1 mmol/L 3.5-5.1 [facility] Protein [Mass/Vol] 6.7 g/dL 6.4-8.2 [facility] Sodium [Moles/Vol] 135 mmol/L 136-145 [facility] WBC (Bld) [#/Vol] 7.0 10*3/uL 4.4-11.0 [facility] Determination of erythrocyte mean corpuscular volume (MCV)Ordered By: Lionel Ocasio on 07-03-2023 MCV (RBC) [Entitic vol] 91.2 fL 80-94 [facility] Direct bilirubinOrdered By: Lionel Ocasio on 07-03-2023 Bilirubin.direct [Mass/Vol] 0.21 mg/dL 0.00-0.30 [facility] Erythrocyte distribution wid th ratioOrdered By: Lionel Ocasio on 07-03-2023 Erythrocyte distribution width (RBC) [Ratio] 12.8 % 11.6-14.6 [facility] Erythrocyte distribution wid th standard deviationOrdered By: Lionel Ocasio on 07-03-2023 Erythrocyte distribution width (RBC) [Entitic vol] 42.8 fL 35.1-43.9 [facility] Hematocrit Auto (Bld) [Volum e fraction]Ordered By: Lionel Ocasio on 07-03-2023 Hematocrit (Bld) [Volume fraction] 43.4 % 40-54 [facility] Immature granulocytes/100 WB C Auto (Bld)Ordered By: Lionel Ocasio on 07-03-2023 Immature granulocytes/100 WBC (Bld) 0.300 % 0.0-0.9 [facility] Comment on above: IG% - Immature Granu locytes (promyelocytes, myelocytes and metamyelocytes) > 1% indicates that a LEFT SHIFT is Present. Laboratory - Chemistry and C hemistry - challengeOrdered By: Lionel Ocasio on 07-03-2023 ALP [Catalytic activity/Vol] 106 U/L 45-117 [facility] ALT [Catalytic activity/Vol] 94 U/L 16-61 [facility] CO2 [Moles/Vol] 28.0 mmol/L 21.0-32.0 [facility] Globulin (S) [Mass/Vol] 3.0 g/dL 2.2-4.2 [facility] Urea nitrogen/Creatinine [Mass ratio] 16.1 mg/mg 10-20 [facility] Laboratory - Hematology and Cell countsOrdered By: Lionel Ocasio on 07-03-2023 MCH (RBC) [Entitic mass] 30.3 pg 27.0-32.0 [facility] MCHC (RBC) [Mass/Vol] 33.2 g/dL 32-36 [facility] Nucleated RBC/100 WBC (Bld) [Ratio] 0 % 0-5 [facility] Platelet mean volume (Bld) [Entitic vol] 11.3 fL 6.2-12.0 [facility] Platelets (Bld) [#/Vol] 208 10*3/uL 150-450 [facility] No Panel InformationOrdered By: Lionel Ocasio on 07-03-2023 D-Dimer Quantitative (PE/DVT) 0.89 FEU/ug/m 0.27-0.49 [facility] Comment on above: D-Dimer ELEVATED (>0 .49): Additional studies and clinicalassessments are indicated to conclude diagnosis of:Deep Vein Thrombosis (DVT) or Pulmonary Embolism (PE) Estimated Creatinine Clearance Calc 45.63 ml/min [facility] Estimated GFR (MDRD) Amer 79 mL/min >60 [facility] Comment on above: GFR Calc Estimated GFR (MDRD) Non-Af Amer 65 mL/min >60 [facility] Comment on above: Non- GFR Calc Troponin I High Sensitivity 6 pg/mL 3.0-78.0 [facility] Comment on above: Please Note: New Angela t Units and Gender Specific Reference Ranges. For more information see Policy Stat Procedure [place] High Sensitivity Troponin (TNIH) and attachments. RBC Auto (Bld) [#/Vol]Ordere d By: Lionel Ocasio on 07-03-2023 RBC (Bld) [#/Vol] 4.76 10*6/uL 4.6-6.2 [facility] Serum or plasma calcium zac urement (mass/volume)Ordered By: Lionel Ocasio on 07-03-2023 Calcium [Mass/Vol] 9.1 mg/dL 8.5-10.1 [facility] Serum or plasma creatinine m easurement (mass/volume)Ordered By: Lionel Ocasio on 07-03-2023 Creatinine [Mass/Vol] 1.18 mg/dL 0.70-1.30 [facility] Comment on above: The validity of the calculated GFR & GFRAA in patients over 70 years has not been determined. Clinical correlation is essential. Serum or plasma urea nitroge n measurement (mass/volume)Ordered By: Lionel Ocasio on 07-03-2023 Urea nitrogen [Mass/Vol] 19 mg/dL 7-18 [facility] Thin prep Papanicolaou smear with manual screeningOrdered By: Lionel Ocasio on 07-03-2023 Thin prep Papanicolaou smear with manual screening 3.7 g/dL 3.2-5.0 [facility] Thin prep Papanicolaou smear with manual screening 97 U/L 15-37 [facility] Thin prep Papanicolaou smear with manual screening 4 5-15 [facility] Basophil percentageOrdered B y: Gosia Delaney on 04-12-2023 Bilirubin [Mass/Vol] 0.50 mg/dL 0.20-1.00 [facility] Comment on above: For patients on eltr ombopag therapy, use of Dimension [place] TBIL is not recommended. Chloride [Moles/Vol] 100 mmol/L 98-107 [facility] Cholesterol [Mass/Vol] 175 mg/dL <200 [facility] Comment on above: <200 mg/dL Desirable 200-240 mg/dL Borderline >240 mg/dL High Risk Glucose [Mass/Vol] 111 mg/dL 74-106 [facility] Comment on above: Fasting Glucose resu lt from 100 to 125 mg/dL suggests IMPAIRED HOMEOSTASIS per A.D.A. criteria. Potassium [Moles/Vol] 4.1 mmol/L 3.5-5.1 [facility] Protein [Mass/Vol] 7.3 g/dL 6.4-8.2 [facility] Sodium [Moles/Vol] 135 mmol/L 136-145 [facility] Triglyceride [Mass/Vol] 263 mg/dL <199 [facility] Comment on above: The drugs N-Acetylcy steine and Metamizole may falsely depress this assay.Serum Triglycerides Reference Interval Normal <150 mg/dL Borderline high 150 - 199 mg/dL High 200 - 499 mg/dL Very High > or = 500 mg/dL Cholesterol in LDL Direct as say [Mass/Vol]Ordered By: Gosia Delaney on 04-12-2023 Cholesterol in LDL [Mass/Vol] 99 mg/dL 0-99 [facility] Comment on above: Performed at: [address] [id number] Director: Aquilino Gómez PhD, Phone: [phone] Laboratory - Chemistry and C hemistry - challengeOrdered By: Gosia Delaney on 04-12-2023 ALP [Catalytic activity/Vol] 82 U/L 45-117 [facility] ALT [Catalytic activity/Vol] 37 U/L 16-61 [facility] Amylase [Catalytic activity/Vol] 361 U/L 15-85 [facility] CO2 [Moles/Vol] 24.0 mmol/L 21.0-32.0 [facility] Globulin (S) [Mass/Vol] 3.7 g/dL 2.2-4.2 [facility] Urea nitrogen/Creatinine [Mass ratio] 10.4 mg/mg 10-20 [facility] Laboratory - Miscellaneous t estsOrdered By: Gosia Delaney on 04-12-2023 Service comment (Unsp spec) [Interp] TNP [facility] Comment on above: Test not performed No Panel InformationOrdered By: Gosia Delaney on 04-12-2023 Estimated GFR (MDRD) Amer 68 mL/min >60 [facility] Comment on above: GFR Calc Estimated GFR (MDRD) Non-Af Amer 56 mL/min >60 [facility] Comment on above: Non- GFR Calc Serum or plasma albumin zac urement (mass/volume)Ordered By: Gosia Delaney on 04-12-2023 Albumin [Mass/Vol] 3.6 g/dL 3.2-5.0 [facility] Serum or plasma albumin/glob ulin mass ratioOrdered By: Gosia Delaney on 04-12-2023 Albumin/Globulin [Mass ratio] 1.0 {ratio} 0.9-2.4 [facility] Serum or plasma calcium zac urement (mass/volume)Ordered By: Gosia Delaney on 04-12-2023 Calcium [Mass/Vol] 9.4 mg/dL 8.5-10.1 [facility] Serum or plasma cholesterol in HDL measurement (mass/volume)Ordered By: Gosia Delaney on 04-12-2023 Cholesterol in HDL [Mass/Vol] 47 mg/dL >40 [facility] Comment on above: The drugs N-Acetylcy steine and Metamizole may falsely depress this assay. Reference Range HDL <40 mg/dL Low HDL Cholesterol HDL >or= 60 mg/dL High HDL Cholesterol Serum or plasma cholesterol in VLDL measurement (mass/volume)Ordered By: Gosia Delaney on 04-12-2023 Cholesterol in VLDL [Mass/Vol] 53 mg/dL 5-40 [facility] Serum or plasma creatinine m easurement (mass/volume)Ordered By: Gosia Delaney on 04-12-2023 Creatinine [Mass/Vol] 1.34 mg/dL 0.70-1.30 [facility] Comment on above: The validity of the calculated GFR & GFRAA in patients over 70 years has not been determined. Clinical correlation is essential. Serum or plasma low density lipoprotein (LDL) cholesterol measurement (mass/volume)Ordered By: Gosia Delaney on 04-12-2023 Cholesterol in LDL [Mass/Vol] 75 mg/dL 0-130 [facility] Serum or plasma urea nitroge n measurement (mass/volume)Ordered By: Gosia Delaney on 04-12-2023 Urea nitrogen [Mass/Vol] 14 mg/dL 7-18 [facility] Thin prep Papanicolaou smear with manual screeningOrdered By: Gosia Delaney on 04-12-2023 Thin prep Papanicolaou smear with manual screening 24 U/L 15-37 [facility] Thin prep Papanicolaou smear with manual screening 11 5-15 [facility] Basophil percentageOrdered B y: Gosia Delaney on 04-05-2023 Bilirubin [Mass/Vol] 0.60 mg/dL 0.20-1.00 [facility] Comment on above: For patients on eltr ombopag therapy, use of Dimension [place] TBIL is not recommended. Chloride [Moles/Vol] 102 mmol/L 98-107 [facility] Glucose [Mass/Vol] 105 mg/dL 74-106 [facility] Comment on above: Fasting Glucose resu lt from 100 to 125 mg/dL suggests IMPAIRED HOMEOSTASIS per A.D.A. criteria. Potassium [Moles/Vol] 4.3 mmol/L 3.5-5.1 [facility] Protein [Mass/Vol] 7.3 g/dL 6.4-8.2 [facility] Sodium [Moles/Vol] 137 mmol/L 136-145 [facility] Laboratory - Chemistry and C hemistry - challengeOrdered By: Gosia Delaney on 04-05-2023 ALP [Catalytic activity/Vol] 122 U/L 45-117 [facility] ALT [Catalytic activity/Vol] 113 U/L 16-61 [facility] CO2 [Moles/Vol] 28.0 mmol/L 21.0-32.0 [facility] Globulin (S) [Mass/Vol] 3.9 g/dL 2.2-4.2 [facility] Urea nitrogen/Creatinine [Mass ratio] 6.9 mg/mg 10-20 [facility] No Panel InformationOrdered By: Gosia Delaney on 04-05-2023 Estimated GFR (MDRD) Amer 70 mL/min >60 [facility] Comment on above: GFR Calc Estimated GFR (MDRD) Non-Af Amer 58 mL/min >60 [facility] Comment on above: Non- GFR Calc Serum or plasma albumin zac urement (mass/volume)Ordered By: Gosia Delaney on 04-05-2023 Albumin [Mass/Vol] 3.4 g/dL 3.2-5.0 [facility] Serum or plasma albumin/glob ulin mass ratioOrdered By: Gosia Delaney on 04-05-2023 Albumin/Globulin [Mass ratio] 0.9 {ratio} 0.9-2.4 [facility] Serum or plasma calcium zac urement (mass/volume)Ordered By: Gosia Delaney on 04-05-2023 Calcium [Mass/Vol] 9.1 mg/dL 8.5-10.1 [facility] Serum or plasma creatinine m easurement (mass/volume)Ordered By: Gosia Delaney on 04-05-2023 Creatinine [Mass/Vol] 1.31 mg/dL 0.70-1.30 [facility] Comment on above: The validity of the calculated GFR & GFRAA in patients over 70 years has not been determined. Clinical correlation is essential. Serum or plasma urea nitroge n measurement (mass/volume)Ordered By: Gosia Delaney on 04-05-2023 Urea nitrogen [Mass/Vol] 9 mg/dL 7-18 [facility] Thin prep Papanicolaou smear with manual screeningOrdered By: Gosia Delaney on 04-05-2023 Thin prep Papanicolaou smear with manual screening 45 U/L 15-37 [facility] Thin prep Papanicolaou smear with manual screening 7 5-15 [facility] Absolute lymphocyte countOrd ered By: Gosia Rhett on 03-29-2023 Lymphocytes Auto (Unsp spec) [#/Vol] 1.47 10*3/uL 0.83-4.51 [facility] Basophil percentageOrdered B y: Gosiabeata Delaney on 03-29-2023 Basophils/100 WBC (Bld) 0.5 % 0-1 [facility] Bilirubin [Mass/Vol] 1.90 mg/dL 0.20-1.00 [facility] Comment on above: For patients on eltr ombopag therapy, use of Dimension [place] TBIL is not recommended. Chloride [Moles/Vol] 95 mmol/L 98-107 [facility] Eosinophils/100 WBC (Bld) 1.1 % 0-5 [facility] Glucose [Mass/Vol] 129 mg/dL 74-106 [facility] Comment on above: Fasting Glucose resu lt greater than or equal to 126 mg/dL suggests DIABETES MELLITUS per A.D.A. criteria. Neutrophils (Bld) [#/Vol] 4.4 10*3/uL 2.0-7.7 [facility] Neutrophils/100 WBC (Bld) 69.4 % 47-70 [facility] Potassium [Moles/Vol] 4.1 mmol/L 3.5-5.1 [facility] Comment on above: Slight Hemolysis, Re sult may be falsely increased. Protein [Mass/Vol] 6.9 g/dL 6.4-8.2 [facility] Sodium [Moles/Vol] 129 mmol/L 136-145 [facility] WBC (Bld) [#/Vol] 6.3 10*3/uL 4.4-11.0 [facility] Blood erythrocytes count (nu mber/volume)Ordered By: Gosia Delaney on 03-29-2023 RBC (Bld) [#/Vol] 4.55 10*6/uL 4.6-6.2 [facility] Blood hemoglobin measurement (mass/volume)Ordered By: Gosia Delaney on 03-29-2023 Hemoglobin (Bld) [Mass/Vol] 14.7 g/dL 13.0-16.5 [facility] Blood lymphocytes/100 leukoc ytesOrdered By: Gosia Delaney on 03-29-2023 Lymphocytes/100 WBC (Bld) 23.2 % 19-41 [facility] Blood monocytes/100 leukocyt esOrdered By: Gosia Delaney on 03-29-2023 Monocytes/100 WBC (Bld) 5.5 % 0-10 [facility] Blood platelet mean volumeOr dered By: Gosia Delaney on 03-29-2023 Platelet mean volume (Bld) [Entitic vol] 11.2 fL 6.2-12.0 [facility] Determination of erythrocyte mean corpuscular volume (MCV)Ordered By: Gosia Delaney on 03-29-2023 MCV (RBC) [Entitic vol] 94.3 fL 80-94 [facility] Erythrocyte sedimentation ra teOrdered By: Gosia Delaney on 03-29-2023 ESR (Bld) [Velocity] mm/h 0-20 [facility] Hematocrit Auto (Bld) [Volum e fraction]Ordered By: Gosia Delaney on 03-29-2023 Hematocrit (Bld) [Volume fraction] 42.9 % 40-54 [facility] Laboratory - Chemistry and C hemistry - challengeOrdered By: Gosia Delaney on 03-29-2023 ALP [Catalytic activity/Vol] 181 U/L 45-117 [facility] ALT [Catalytic activity/Vol] 491 U/L 16-61 [facility] CO2 [Moles/Vol] 21.0 mmol/L 21.0-32.0 [facility] Globulin (S) [Mass/Vol] 3.2 g/dL 2.2-4.2 [facility] Lipase [Catalytic activity/Vol] 30 U/L 13-75 [facility] Comment on above: Please note:LIPASE r evised reference range effective 22. New Lipase methodology. Expected to produce lower values than the previous assay method. NEW Reference Range: 13 - 75 U/L Magnesium [Mass/Vol] 2.2 mg/dL 1.6-2.6 [facility] Comment on above: Slight Hemolysis, Re sult may be falsely increased. Urea nitrogen/Creatinine [Mass ratio] 13.5 mg/mg 10-20 [facility] Laboratory - Hematology and Cell countsOrdered By: Gosia Delaney on 03-29-2023 Erythrocyte distribution width (RBC) [Entitic vol] 47.6 fL 35.1-43.9 [facility] Erythrocyte distribution width (RBC) [Ratio] 13.6 % 11.6-14.6 [facility] Immature granulocytes/100 WBC (Bld) 0.300 % 0.0-0.9 [facility] Comment on above: IG% - Immature Granu locytes (promyelocytes, myelocytes and metamyelocytes) > 1% indicates that a LEFT SHIFT is Present. MCH (RBC) [Entitic mass] 32.3 pg 27.0-32.0 [facility] Nucleated RBC/100 WBC (Bld) [Ratio] 0 % 0-5 [facility] MCHC Auto (RBC) [Mass/Vol]Or dered By: Gosia Delaney on 03-29-2023 MCHC (RBC) [Mass/Vol] 34.3 g/dL 32-36 [facility] No Panel InformationOrdered By: Gosia Delaney on 03-29-2023 Estimated GFR (MDRD) Amer 61 mL/min >60 [facility] Comment on above: GFR Calc Estimated GFR (MDRD) Non-Af Amer 50 mL/min >60 [facility] Comment on above: Non- GFR Calc Platelets bldOrdered By: Julia Delaney on 03-29-2023 Platelets (Bld) [#/Vol] 160 10*3/uL 150-450 [facility] Serum or plasma C reactive p rotein measurement (mass/volume)Ordered By: Gosia Delaney on 03-29-2023 CRP [Mass/Vol] mg/L 0.0-3.0 [facility] Comment on above: C-Reactive Protein ( CRP) provides useful information for thediagnosis, therapy and monitoring of inflammatory processesand associated diseases. For the evaluation of Relative Riskfor Cardiovascular Disease, a High Sensitivity CRP (HSCRP)should be ordered. Serum or plasma albumin zac urement (mass/volume)Ordered By: Gosia Delaney on 03-29-2023 Albumin [Mass/Vol] 3.7 g/dL 3.2-5.0 [facility] Serum or plasma albumin/glob ulin mass ratioOrdered By: Gosia Delaney on 03-29-2023 Albumin/Globulin [Mass ratio] 1.2 {ratio} 0.9-2.4 [facility] Serum or plasma calcium zac urement (mass/volume)Ordered By: Gosia Delaney on 03-29-2023 Calcium [Mass/Vol] 8.1 mg/dL 8.5-10.1 [facility] Serum or plasma creatinine m easurement (mass/volume)Ordered By: Gosia Delaney on 03-29-2023 Creatinine [Mass/Vol] 1.48 mg/dL 0.70-1.30 [facility] Comment on above: The validity of the calculated GFR & GFRAA in patients over 70 years has not been determined. Clinical correlation is essential. Serum or plasma urea nitroge n measurement (mass/volume)Ordered By: Gosia Delaney on 03-29-2023 Urea nitrogen [Mass/Vol] 20 mg/dL 7-18 [facility] Thin prep Papanicolaou smear with manual screeningOrdered By: Gosia Delaney on 03-29-2023 Thin prep Papanicolaou smear with manual screening 757 U/L 15-37 [facility] Comment on above: Slight Hemolysis, Re sult may be falsely increased. Thin prep Papanicolaou smear with manual screening 13 5-15 [facility] Basophil percentageOrdered B y: Gosia Delaney on 12-04-2022 Bilirubin [Mass/Vol] 0.50 mg/dL 0.20-1.00 [facility] Comment on above: For patients on eltr ombopag therapy, use of Dimension [place] TBIL is not recommended. Chloride [Moles/Vol] 103 mmol/L 98-107 [facility] Cholesterol [Mass/Vol] 167 mg/dL <200 [facility] Comment on above: <200 mg/dL Desirable 200-240 mg/dL Borderline >240 mg/dL High Risk Glucose [Mass/Vol] 85 mg/dL 74-106 [facility] Potassium [Moles/Vol] 3.7 mmol/L 3.5-5.1 [facility] Protein [Mass/Vol] 7.3 g/dL 6.4-8.2 [facility] Sodium [Moles/Vol] 138 mmol/L 136-145 [facility] Triglyceride [Mass/Vol] 335 mg/dL <199 [facility] Comment on above: The drugs N-Acetylcy steine and Metamizole may falsely depress this assay.Serum Triglycerides Reference Interval Normal <150 mg/dL Borderline high 150 - 199 mg/dL High 200 - 499 mg/dL Very High > or = 500 mg/dL Laboratory - Chemistry and C hemistry - challengeOrdered By: Gosia Delaney on 12-04-2022 ALP [Catalytic activity/Vol] 109 U/L 45-117 [facility] ALT [Catalytic activity/Vol] 46 U/L 16-61 [facility] CO2 [Moles/Vol] 27.0 mmol/L 21.0-32.0 [facility] Globulin (S) [Mass/Vol] 3.6 g/dL 2.2-4.2 [facility] Urea nitrogen/Creatinine [Mass ratio] 7.0 mg/mg 10-20 [facility] No Panel InformationOrdered By: Gosia Delaney on 12-04-2022 Estimated GFR (MDRD) Amer 113 mL/min >60 [facility] Comment on above: GFR Calc Estimated GFR (MDRD) Non-Af Amer 93 mL/min >60 [facility] Comment on above: Non- GFR Calc Prostate Specific Antigen Screen 0.46 ng/mL 0.00-4.00 [facility] Comment on above: This test was perfor med using the TPSA assay method for the[employer] chemistry system. Values obtained with differentassay methods cannot be used interchangably.When changing PSA assays in the course of monitoring apatient, additional sequential testing should be carriedout to confirm baseline values. Thyroid Stimulating Hormone (TSH) 1.60 uIU/mL 0.358-3.74 [facility] Urine Microalbumin/Creatinine Ratio 15.5 mg/g CRE <30 [facility] Serum or plasma albumin zac urement (mass/volume)Ordered By: Gosia Delaney on 12-04-2022 Albumin [Mass/Vol] 3.7 g/dL 3.2-5.0 [facility] Serum or plasma albumin/glob ulin mass ratioOrdered By: Gosia Delaney on 12-04-2022 Albumin/Globulin [Mass ratio] 1.0 {ratio} 0.9-2.4 [facility] Serum or plasma calcium zac urement (mass/volume)Ordered By: Gosia Delaney on 12-04-2022 Calcium [Mass/Vol] 8.7 mg/dL 8.5-10.1 [facility] Serum or plasma cholesterol in HDL measurement (mass/volume)Ordered By: Gosia Delaney on 12-04-2022 Cholesterol in HDL [Mass/Vol] 55 mg/dL >40 [facility] Comment on above: The drugs N-Acetylcy steine and Metamizole may falsely depress this assay. Reference Range HDL <40 mg/dL Low HDL Cholesterol HDL >or= 60 mg/dL High HDL Cholesterol Serum or plasma cholesterol in VLDL measurement (mass/volume)Ordered By: Gosia Delaney on 12-04-2022 Cholesterol in VLDL [Mass/Vol] 67 mg/dL 5-40 [facility] Serum or plasma creatinine m easurement (mass/volume)Ordered By: Gosia Delaney on 12-04-2022 Creatinine [Mass/Vol] 0.86 mg/dL 0.70-1.30 [facility] Comment on above: The validity of the calculated GFR & GFRAA in patients over 70 years has not been determined. Clinical correlation is essential. Serum or plasma low density lipoprotein (LDL) cholesterol measurement (mass/volume)Ordered By: Gosia Delaney on 12-04-2022 Cholesterol in LDL [Mass/Vol] 45 mg/dL 0-130 [facility] Serum or plasma urea nitroge n measurement (mass/volume)Ordered By: Gosia Delaney on 12-04-2022 Urea nitrogen [Mass/Vol] 6 mg/dL 7-18 [facility] Thin prep Papanicolaou smear with manual screeningOrdered By: Gosia Delaney on 12-04-2022 Thin prep Papanicolaou smear with manual screening 43 U/L 15-37 [facility] Thin prep Papanicolaou smear with manual screening 8 5-15 [facility] Thin prep Papanicolaou smear with manual screening 11.3 mg/L NO RANGE EST. [facility] Urine creatinine measurement (mass/volume)Ordered By: Gosia Delaney on 12-04-2022 Creatinine (U) [Mass/Vol] 73.10 mg/dL NO RANGE EST. [facility] Absolute lymphocyte countOrd ered By: Dr. Delaney on 06-04-2022 Lymphocytes Auto (Unsp spec) [#/Vol] 1.97 10*3/uL 0.83-4.51 [facility] Basophil percentageOrdered B y: Dr. Delaney on 06-04-2022 Basophils/100 WBC (Bld) 0.8 % 0-1 [facility] Bilirubin [Mass/Vol] 0.60 mg/dL 0.20-1.00 [facility] Comment on above: For patients on eltr ombopag therapy, use of Dimension [place] TBIL is not recommended. Chloride [Moles/Vol] 101 mmol/L 98-107 [facility] Cholesterol [Mass/Vol] 248 mg/dL <200 [facility] Comment on above: <200 mg/dL Desirable 200-240 mg/dL Borderline >240 mg/dL High Risk Eosinophils/100 WBC (Bld) 6.3 % 0-5 [facility] Glucose [Mass/Vol] 106 mg/dL 74-106 [facility] Comment on above: Fasting Glucose resu lt from 100 to 125 mg/dL suggests IMPAIRED HOMEOSTASIS per A.D.A. criteria. Neutrophils (Bld) [#/Vol] 4.0 10*3/uL 2.0-7.7 [facility] Neutrophils/100 WBC (Bld) 56.1 % 47-70 [facility] Potassium [Moles/Vol] 4.2 mmol/L 3.5-5.1 [facility] Protein [Mass/Vol] 7.2 g/dL 6.4-8.2 [facility] Sodium [Moles/Vol] 139 mmol/L 136-145 [facility] Triglyceride [Mass/Vol] 543 mg/dL <199 [facility] Comment on above: The drugs N-Acetylcy steine and Metamizole may falsely depress this assay. TRIGLYCERIDE IS GREATER THAN 400 mg/dL. LDL RESULT IS INVALID AND WILL NOT BE REPORTED.Serum Triglycerides Reference Interval Normal <150 mg/dL Borderline high 150 - 199 mg/dL High 200 - 499 mg/dL Very High > or = 500 mg/dL WBC (Bld) [#/Vol] 7.1 10*3/uL 4.4-11.0 [facility] Blood erythrocytes count (nu mber/volume)Ordered By: Dr. Delaney on 06-04-2022 RBC (Bld) [#/Vol] 4.77 10*6/uL 4.6-6.2 [facility] Blood hemoglobin measurement (mass/volume)Ordered By: Dr. Delaney on 06-04-2022 Hemoglobin (Bld) [Mass/Vol] 15.3 g/dL 13.0-16.5 [facility] Blood lymphocytes/100 leukoc ytesOrdered By: Dr. Delaney on 06-04-2022 Lymphocytes/100 WBC (Bld) 27.7 % 19-41 [facility] Blood monocytes/100 leukocyt esOrdered By: Dr. Delaney on 06-04-2022 Monocytes/100 WBC (Bld) 8.7 % 0-10 [facility] Blood platelet mean volumeOr dered By: Dr. Delaney on 06-04-2022 Platelet mean volume (Bld) [Entitic vol] 11.3 fL 6.2-12.0 [facility] Determination of erythrocyte mean corpuscular volume (MCV)Ordered By: Dr. Delaney on 06-04-2022 MCV (RBC) [Entitic vol] 95.8 fL 80-94 [facility] Hematocrit Auto (Bld) [Volum e fraction]Ordered By: Dr. Delaney on 06-04-2022 Hematocrit (Bld) [Volume fraction] 45.7 % 40-54 [facility] Laboratory - Chemistry and C hemistry - challengeOrdered By: Dr. Delaney on 06-04-2022 ALP [Catalytic activity/Vol] 86 U/L 45-117 [facility] ALT [Catalytic activity/Vol] 47 U/L 16-61 [facility] Amylase [Catalytic activity/Vol] 257 U/L 15-85 [facility] CO2 [Moles/Vol] 28.0 mmol/L 21.0-32.0 [facility] Globulin (S) [Mass/Vol] 3.3 g/dL 2.2-4.2 [facility] Urea nitrogen/Creatinine [Mass ratio] 10.2 mg/mg 10-20 [facility] Laboratory - Hematology and Cell countsOrdered By: Dr. Delaney on 06-04-2022 Erythrocyte distribution width (RBC) [Entitic vol] 44.5 fL 35.1-43.9 [facility] Erythrocyte distribution width (RBC) [Ratio] 12.6 % 11.6-14.6 [facility] Immature granulocytes/100 WBC (Bld) 0.400 % 0.0-0.9 [facility] Comment on above: IG% - Immature Granu locytes (promyelocytes, myelocytes and metamyelocytes) > 1% indicates that a LEFT SHIFT is Present. MCH (RBC) [Entitic mass] 32.1 pg 27.0-32.0 [facility] Nucleated RBC/100 WBC (Bld) [Ratio] 0 % 0-5 [facility] MCHC Auto (RBC) [Mass/Vol]Or dered By: Dr. Delaney on 06-04-2022 MCHC (RBC) [Mass/Vol] 33.5 g/dL 32-36 [facility] No Panel InformationOrdered By: Dr. Delaney on 06-04-2022 Estimated GFR (MDRD) Amer 127 mL/min >60 [facility] Comment on above: GFR Calc Estimated GFR (MDRD) Non-Af Amer 105 mL/min >60 [facility] Comment on above: Non- GFR Calc Thyroid Stimulating Hormone (TSH) 2.34 uIU/mL 0.358-3.74 [facility] Urine Microalbumin/Creatinine Ratio 184.4 mg/g CRE <30 [facility] Platelets bldOrdered By: Dr. Delaney on 06-04-2022 Platelets (Bld) [#/Vol] 224 10*3/uL 150-450 [facility] Serum or plasma albumin zac urement (mass/volume)Ordered By: Dr. Delaney on 06-04-2022 Albumin [Mass/Vol] 3.9 g/dL 3.2-5.0 [facility] Serum or plasma albumin/glob ulin mass ratioOrdered By: Dr. Delaney on 06-04-2022 Albumin/Globulin [Mass ratio] 1.2 {ratio} 0.9-2.4 [facility] Serum or plasma calcium zac urement (mass/volume)Ordered By: Dr. Delaney on 06-04-2022 Calcium [Mass/Vol] 9.1 mg/dL 8.5-10.1 [facility] Serum or plasma cholesterol in HDL measurement (mass/volume)Ordered By: Dr. Delaney on 06-04-2022 Cholesterol in HDL [Mass/Vol] 49 mg/dL >40 [facility] Comment on above: The drugs N-Acetylcy steine and Metamizole may falsely depress this assay. Reference Range HDL <40 mg/dL Low HDL Cholesterol HDL >or= 60 mg/dL High HDL Cholesterol Serum or plasma cholesterol in VLDL measurement (mass/volume)Ordered By: Dr. Delaney on 06-04-2022 Cholesterol in VLDL [Mass/Vol] [facility] Comment on above: Test not performed Serum or plasma creatinine m easurement (mass/volume)Ordered By: Dr. Delaney on 06-04-2022 Creatinine [Mass/Vol] 0.78 mg/dL 0.70-1.30 [facility] Comment on above: The validity of the calculated GFR & GFRAA in patients over 70 years has not been determined. Clinical correlation is essential. Serum or plasma low density lipoprotein (LDL) cholesterol measurement (mass/volume)Ordered By: Dr. Delaney on 06-04-2022 Cholesterol in LDL [Mass/Vol] [facility] Comment on above: Test not performed Serum or plasma urea nitroge n measurement (mass/volume)Ordered By: Dr. Delaney on 06-04-2022 Urea nitrogen [Mass/Vol] 8 mg/dL 7-18 [facility] Thin prep Papanicolaou smear with manual screeningOrdered By: Dr. Delaney on 06-04-2022 Thin prep Papanicolaou smear with manual screening 37 U/L 15-37 [facility] Thin prep Papanicolaou smear with manual screening 10 5-15 [facility] Thin prep Papanicolaou smear with manual screening 69.7 mg/L NO RANGE EST. [facility] Urine creatinine measurement (mass/volume)Ordered By: Dr. Delaney on 06-04-2022 Creatinine (U) [Mass/Vol] 37.80 mg/dL NO RANGE EST. [facility] Vital Signs Date Time Vital Sign Value Performing Clinician Facility 11-08-2024 07:56-0400 Body height 157.[address] Gosia Delaney MD Work Phone: [facility] 11-08-2024 07:56-0400 Body mass index (BMI) [Ratio] 21.4 kg/m2 Dr. Gosia Delaney MD Work Phone: [facility] 11-08-2024 07:56-0400 Body temperature 97.8 [degF] Dr. Gosia Delaney MD Work Phone: [facility] 11-08-2024 07:56-0400 Body weight 53.[address] Gosia Delaney MD Work Phone: [facility] 11-08-2024 07:56-0400 Diastolic blood pressure 64 mm[Hg] Dr. Gosia Delaney MD Work Phone: [facility] 11-08-2024 07:56-0400 Heart rate 59 /min Dr. Gosia Delaney MD Work Phone: [facility] 11-08-2024 07:56-0400 Respiratory rate 15 /min Dr. Gosia Delaney MD Work Phone: [facility] 11-08-2024 07:56-0400 SaO2% (BldA) [Mass fraction] 98 % Dr. Gosia Delaney MD Work Phone: [facility] 11-08-2024 07:56-0400 Systolic blood pressure 144 mm[Hg] Dr. Gosia Delaney MD Work Phone: [facility] 08-30-2023 13:51-0400 Body height 160 cm Mary Carmen Cline MD Work Phone: [facility] 08-30-2023 13:51-0400 Body mass index (BMI) [Ratio] 20.9 kg/m2 Mary Carmen Cline MD Work Phone: [facility] 08-30-2023 13:51-0400 Body weight 53.52 kg Mary Carmen Cline MD Work Phone: [facility] 08-30-2023 13:51-0400 Diastolic blood pressure 90 mm[Hg] Mary Carmen Cline MD Work Phone: [facility] 08-30-2023 13:51-0400 Systolic blood pressure 183 mm[Hg] Mary Carmen Cline MD Work Phone: [facility] 08-25-2023 14:46-0400 Body height 160 cm Jessy Stafford MD Work Phone: [facility] 08-25-2023 14:46-0400 Body temperature 98.29 [degF] Jessy Stafford MD Work Phone: [facility] 08-25-2023 14:46-0400 Body weight 54.16 kg Jessy Stafford MD Work Phone: [facility] 08-25-2023 14:46-0400 Diastolic blood pressure 68 mm[Hg] Jessy Stafford MD Work Phone: [facility] 08-25-2023 14:46-0400 Heart rate 77 /min Jessy Stafford MD Work Phone: [facility] 08-25-2023 14:46-0400 SaO2% (BldA) [Mass fraction] 98 % Jessy Stafford MD Work Phone: [facility] 08-25-2023 14:46-0400 Systolic blood pressure 154 mm[Hg] Jessy Stafford MD Work Phone: [facility] 07-03-2023 14:35-0500 Body temperature 97.9 [degF] Dr. Gosia Delaney Work Phone: [facility] 07-03-2023 14:35-0500 Diastolic blood pressure 66 mm[Hg] Dr. Gosia Delaney Work Phone: [facility] 07-03-2023 14:35-0500 Heart rate 56 /min Dr. Gosia Delaney Work Phone: [facility] 07-03-2023 14:35-0500 Respiratory rate 14 /min Dr. Gosia Delaney Work Phone: [facility] 07-03-2023 14:35-0500 SaO2% (BldA) [Mass fraction] 98 % Dr. Gosia Delaney Work Phone: [facility] 07-03-2023 14:35-0500 Systolic blood pressure 171 mm[Hg] Dr. Gosia Delaney Work Phone: [facility] 07-03-2023 11:50-0500 Body height 157.[address] Gosia Delaney Work Phone: 0(267)[phone] [address] 07-03-2023 11:50-0500 Body mass index (BMI) [Ratio] 22 kg/m2 Dr. Gosia Delaney Work Phone: [phone](061)[phone] [place] [address] 07-03-2023 11:50-0500 Body weight 54.[address] Gosia Delaney Work Phone: 6(151)[phone] [place] [address] 04-19-2023 07:54-0500 Body height 157.[address] Gosia Delaney Work Phone: 7(613)[phone] [address] 04-19-2023 07:54-0500 Body mass index (BMI) [Ratio] 21.1 kg/m2 Dr. Gosia Delaney Work Phone: 7(057)[phone] [place] [address] 04-19-2023 07:54-0500 Body temperature 97.8 [degF] Dr. Gosia Delaney Work Phone: [facility] 04-19-2023 07:54-0500 Body weight 52.[address] Gosia Delaney Work Phone: [facility] 04-19-2023 07:54-0500 Diastolic blood pressure 80 mm[Hg] Dr. Gosia Delaney Work Phone: [facility] 04-19-2023 07:54-0500 Heart rate 80 /min Dr. Gosia Delaney Work Phone: [facility] 04-19-2023 07:54-0500 Respiratory rate 17 /min Dr. Gosia Delaney Work Phone: [facility] 04-19-2023 07:54-0500 SaO2% (BldA) [Mass fraction] 99 % Dr. Gosia Delaney Work Phone: [facility] 04-19-2023 07:54-0500 Systolic blood pressure 108 mm[Hg] Dr. Gosia Delaney Work Phone: [facility] 11-02-2022 08:00-0400 Body height 157.[address] Gosia Delaney Work Phone: [phone] [address] 11-02-2022 08:00-0400 Body mass index (BMI) [Ratio] 22 kg/m2 Dr. Gosia Delaney Work Phone: [facility] 11-02-2022 08:00-0400 Body temperature 98 [degF] Dr. Gosia Delaney Work Phone: [facility] 11-02-2022 08:00-0400 Body weight 54.[address] Gosia Delaney Work Phone: [facility] 11-02-2022 08:00-0400 Diastolic blood pressure 68 mm[Hg] Dr. Gosia Delaney Work Phone: [facility] 11-02-2022 08:00-0400 Heart rate 72 /min Dr. Gosia Delaney Work Phone: [facility] 11-02-2022 08:00-0400 Respiratory rate 16 /min Dr. Gosia Delaney Work Phone: [facility] 11-02-2022 08:00-0400 SaO2% (BldA) [Mass fraction] 99 % Dr. Gosia Delaney Work Phone: [facility] 11-02-2022 08:00-0400 Systolic blood pressure 120 mm[Hg] Dr. Gosia Delaney Work Phone: [facility] Encounters Encounter Date Encounter Type Care Provider Facility Start: 11-22-2024 ambulatory Gosia Delaney Facility:[facility] Start: 11-08-2024 End: 11-08-[address] Tuan Foster MD -[facility] Work Phone: Start: 11-08-2024 End: 11-08-[address] Gosia Delaney MD Work Phone: [facility] Start: 07-12-2024 End: 07-12-[address] Gosia Delaney MD Work Phone: [facility] Work Phone: Start: 07-12-2024 End: 07-12-[address] Tina Sutherland DO -Laboratory, [address] Start: 07-12-2024 End: 07-12-2024 ambulatory Gosia Delaney Facility:[facility] Start: 06-29-2024 End: 06-29-[address] Gosia Delaney MD -Pulmonary Services/Neurology Work Phone: Start: 06-29-2024 ambulatory Franck Shelby Facility:[facility] Start: 06-29-2024 End: 06-29-2024 ambulatory Gosia Delaney Facility:[facility] Start: 06-21-2024 End: 06-21-[address] Gosia Delaney MD -Laboratory, [facility] Start: 06-21-2024 End: 06-21-2024 ambulatory Gosia Delaney Facility:[facility] Start: 01-22-2024 ambulatory Gosia Delaney Facility:[facility] Start: 01-19-2024 End: 01-19-2024 ambulatory Gosia Delaney Facility:[facility] Start: 01-17-2024 End: 01-17-2024 ambulatory Gosia Delaney Facility:[facility] Start: 01-14-2024 End: 01-14-2024 ambulatory Gosia Delaney Facility:[facility] Start: 12-20-2023 End: 12-20-2023 ambulatory Gosia Delaney Facility:[facility] Start: 08-30-2023 End: 08-30-2023 ambulatory MARY CARMEN CLINE Facility:[facility] Start: 08-30-2023 End: 08-30-2023 Patient encounter procedure Mary Carmen Cline MD Work Phone: [facility] Comment on above: Symptomatic cholelit hiasis (Primary Dx) Start: 08-25-2023 End: 08-25-2023 ambulatory JESSY STAFFORD Facility:[facility] Start: 08-25-2023 End: 08-25-2023 Patient encounter procedure Jessy Stafford MD Work Phone: General Surgery Comment on above: Calculus of gallblad shelby without cholecystitis without obstruction (Primary Dx) Start: 07-06-2023 End: 07-06-[address] Gosia Delaney Work Phone: [facility] Work Phone: Start: 07-06-2023 End: 07-06-[address] Gosia Delaney Work Phone: [facility] Start: 07-03-2023 End: 07-03-2023 Emergency department patient visit Dr. Gosia Delaney Work Phone: [facility]-Emergency Department Work Phone: Start: 06-07-2023 Non-patient / Non-visit Dr. Joni Delaney Work Phone: [facility] Start: 06-07-2023 End: 06-07-[address] Gosia Delaney Work Phone: [facility] Work Phone: Start: 06-07-2023 End: 06-07-[address] Gosia Delaney Work Phone: [facility]-Cardiovascula r Services Work Phone: Start: 04-19-2023 End: 04-19-[address] Gosia Delaney Work Phone: [facility] Work Phone: Start: 04-12-2023 End: 04-12-2023 ambulatory [facility] Work Phone: Start: 04-12-2023 End: 04-12-2023 Patient encounter procedure [facility] Work Phone: Start: 04-05-2023 End: 04-05-2023 ambulatory [facility] Work Phone: Start: 04-05-2023 End: 04-05-2023 Patient encounter procedure [facility] Work Phone: Start: 03-29-2023 End: 03-29-2023 ambulatory [facility] Work Phone: Start: 03-29-2023 End: 03-29-2023 Patient encounter procedure [facility] Work Phone: Start: 01-05-2023 End: 01-05-[address] Gosia Delaney Work Phone: [facility] Work Phone: Start: 01-05-2023 End: 01-05-[address] Gosia Delaney Work Phone: [facility] Work Phone: Start: 01-02-2023 End: 01-02-[address] [facility] Work [facility] Start: 12-04-2022 End: 12-04-[address] Gosia Delaney Work Phone: [facility] Work Phone: Start: 12-04-2022 End: 12-04-[address] Gosia Delaney Work Phone: [facility] Start: 11-03-2022 Non-patient / Non-visit Dr. Joni Delaney Work Phone: [facility] Start: 11-03-2022 End: 11-03-[address] Gosia Delaney Work Phone: [facility] Work Phone: Start: 11-03-2022 End: 11-03-[address] Gosia Delaney [facility] Work Phone: Start: 11-02-2022 End: 11-02-[address] Gosia Delaney Work Phone: [facility] Work Phone: Start: 06-04-2022 End: 06-04-[address] Gosia Delaney Work Phone: [facility] Work Phone: Start: 06-04-2022 End: 06-04-[address] Gosia Delaney Work Phone: [facility] Start: 03-03-2022 Non-patient / Non-visit Dr. Joni Delaney Work Phone: [facility] Start: 03-03-2022 End: 03-03-[address] Gosia Delaney [facility] Procedures Date Procedure Procedure Detail Performing Clinician Start: 07-03-2023 CT angiography of ch est with contrast Dr. Gosia Delaney Work Phone: Start: 07-03-2023 Plain chest X-ray Dr. Pat Delaney Work Phone: Start: 01-05-[address] Gosia landa Work Phone: Plan of Treatment Date Care Activity Detail Author Start: 12-04-2032 Urine microalbumin profile DTaP,Tdap,Td Vaccine (2 - Td or Tdap) [facility] Start: 12-17-2025 Screening for malign ant neoplasm of colon [facility] Start: 07-03-2023 [facility] Start: 07-03-2023 [facility] Start: 05-10-2023 Advance Directive Discussion Advance Directive Discussion [facility] Start: 05-10-2023 Behavioral Health Screening Behavioral Health Screening [facility] Start: 2013 RSV Vaccine (1 - 1-d ose 60+ series) RSV Vaccine (1 - 1-dose 60+ series) [facility] Start: 08-04-2003 Shingrix Vaccine (1 of 2) Ty grix Vaccine (1 of 2) [facility] Start: 1998 Diabetes Screening Diabetes Screenin g [facility] Start: 1998 Screening for malign ant neoplasm of colon [facility] Start: 1988 Lipid panel Lipid Screening [facility] Start: 08-04-1971 Hepatitis C screening Hepatitis C [facility] Start: 1955 Abdominal aortic ane urysm screening Abdominal Aortic Aneurysm Screening [facility] Patient Education ED Chest Pain, Uncertain Cause [facility] Work Phone: Patient referral [facility] Work Phone: [place] Carotid arteries [facility] Carotid arteries [facility] Clini c Payers Date Payer Category Payer Self-pay [id number] 2018 Medicare [id number] 2018 Medicare MEDICARE MEDICAR E A AND B [id number] 2018-Present [phone] [address] [address] [place] [address] Medicare [id number] 2018 Unknown JUANY HARRINGTON ME DICARE SUPPLEMENT [id number] 2018-Present [phone] [address] [place] [address] Indemnity [id number] 2016 Unknown [facility] [id number] 2013 Unknown [id number] Unknown [facility] [id number] Unknown [id number] Unknown [id number] Unknown [id number] Unknown [id number] Unknown [id number] Unknown [id number] Unknown [id number] Unknown [id number] Unknown [id number] Unknown [id number] Unknown [id number] Social History Date Type Detail Facility Start: 02-02-2022 End: 07-03-2023 Tobacco smoking status MEIS Unknown if ever smoked [facility] Start: 1955 Sex Assigned At Male [facility] Start: 07-03-2023 End: 08-25-2023 Tobacco smoking status NHIS Smokes tobacco daily [facility] History of tobacco use Cigarette Smoker [facility] Start: 08-25-2023 End: 08-30-2023 Cigarettes smoked current (pack per day) - Reported 0.8 [facility] Start: 08-25-2023 End: 08-30-2023 Tobacco use and exposure Smokeless tobacco non-user [facility] Start: 08-25-2023 End: 08-30-2023 Alcohol intake Current drinker of alcohol (finding) [facility] Start: 08-25-2023 End: 08-30-2023 Tobacco use panel [facility] National Score (1-10 0), lower number is lower risk 47 [facility] Start: 08-25-2023 [facility] Start: 1955 Sex Assigned At Not on file [facility] Start: 07-26-2024 Sex Male (finding) [facility] Mental Status Date Assessment Result Facility 07-03-2023 Cognitive function Awake;Alert;A ppropriate;Fol lows Commands [facility] Work Phone: Clinical Notes 07-03-2023 to 08-30-2023 Patient InstructionsMary Carmen Cline MD - 08/30/2023 2:35 PM AUDREYTJessy Stafford MD - 08/25/2023 3:00 PM Naila Tong MA - 08/25/2023 2:55 PM EDT Note Date & Type Note Facility 08-30-2023 Note HNO ID: [id number] Author: MARY CARMEN CLINE MD Service: ? Author Type: Physician Type: Progress Notes Filed: 08/30/2023 15:29 Note Text: Fahad De Leon Jr is a 68 year old, White male who presents with complaints of stones. On 03 July patient went to the emergency room for evaluation of right upper quadrant pain. He states he had had intermittent episodes of some pain in the right upper quadrant for the last for 5 years but they were more crampy in nature not related to food and only lasted seconds to minutes. This episode was stain in the right upper quadrant. He states that lasted 6 hours. He did have some nausea and dry heaves. He had no fever. He denies any pancreatitis or jaundice. He was seen in the emergency room where they did a CT scan of his chest to rule out a PE and he was found not to have any evidence of a pulmonary embolism. But he did have a couple calcified stones and a distendedladder. His lipase was normal his white count was normal and he had some mild elevations of his liver function test but his alkaline phosphatase and bilirubin were normal his total protein and albumin was also normal. CT of his chest did not describe any morphologic issues with his liver. He is here now for evaluation. PAST MEDICAL HISTORY Diagnosis Date Carotid atherosclerosis Cataract COPD (chronic obstructive pulmonary disease) (HCC) Elevated TSH Essential hypertension Hypothyroidism Leukoplakia of tongue Mixed hyperlipidemia PAST SURGICAL HISTORY Procedure Laterality Date ALVEOLOPLASTY IN CONJUNCTION WITH EXTRACTIONS - FOUR OR MORE TEETH OR TOOTH SPACES, PER QUADRANT PAST SURGICAL HISTORY OF Bowel obstruction and appendectomy at age 6 PAST SURGICAL HISTORY OF Right arthroscopic knee surgery REMV CATARACT EXTRACAP,INSERT LENS 2020 VASECTOMY Social History Tobacco Use Smoking status: Every Day Packs/day: 1 Types: Cigarettes Smokeless tobacco: Never Substance Use Topics Alcohol use: Yes Comment: occasional Drug use: Never FAMILY HISTORY Problem Relation Age of Onset Heart disease Mother Heart disease Father Heart disease Brother ALLERGIES No Known Allergies No question data found. Current Outpatient Medications Medication Sig amLODIPine (NORVASC) 5 mg tablet Take 5 mg by mouth. irbesartan (AVAPRO) 75 mg tablet Take 75 mg by mouth. metoprolol succinate ER (TOPROL XL) 50 mg 24 hr tablet Take by mouth. levothyroxine (SYNTHROID) 25 mcg tablet once daily. propranolol ER (INDERAL LA) 60 mg 24 hr capsule once daily. Telmisartan 20 mg tablet once daily. INCRUSE ELLIPTA 62.5 mcg/actuation inhaler Inhale 1 Puff as instructed once daily. levocetirizine 5 mg tablet Take 5 mg by mouth once daily. atorvastatin (LIPITOR) 40 mg tablet Take 1 tablet by mouth every afternoon. docosahexaenoic acid/epa (FISH OIL ORAL) Take by mouth once daily. MULTIVITAMIN ORAL Take by mouth once daily. ascorbic acid (VITAMIN C ORAL) Take by mouth once daily. LOW-DOSE ASPIRIN ORAL Take by mouth once daily. potassium citrate ER (UROCIT-K) 10 mEq (1,080 mg) Take by mouth once daily. dupilumab (DUPIXENT PEN) 200 mg/1.14 mL pen injection every 2 weeks. No current facility-administered medications for this visit. REVIEW OF SYSTEMS PAIN ASSESSMENT: Negative for pain, history of chronic pain, or current treatment for a chronic pain condition. GENERAL: No weight loss, malaise or fevers NECK: Negative for lumps, goiter, pain and significant neck swelling RESPIRATORY: Negative for cough, hemoptysis, wheezing, COPD, dyspnea or shortness of breath, patient is a smoker CARDIOVASCULAR: Hypertension, history of peripheral vascular disease. GI: See HPI : No history of dysuria, frequency or incontinence MUSCULOSKELETAL: back pain HEMATOLOGY/LYMPHOLOGY: Negative for prolonged bleeding, bruising easily or swollen nodes ENDOCRINE: Negative for cold or heat intolerance, polyuria, polydipsia and goiter PHYSICAL EXAM: BP 183/90 Ht 5' 3 (1.60m) Wt 118 lb (53.5kg) BMI 20.91 kg/(m2). General Appearance: Well appearing, alert, in no acute distress, well-hydrated, well nourished.. Eyes: Normal sclera Skin: Skin texture and turgor normal, no suspicious rashes or lesions, Negative for jaundice or pallor. Neck: Supple, trachea midline Lungs: Lungs clear to auscultation. No wheezing, rhonchi, rales.. Heart: RRR without murmur, gallop, or rubs. No ectopy. Abdomen: Normal abdominal exam, Abdomen soft, non-tender. Bowel sounds normal. No masses, organomegaly, patient with a right lower quadrant scar from an appendectomy as a youth and it appears that he has a feeding tube scar site as well.. Musculoskeletal: Joint pain Back. Lymph Nodes: No cervical lymphadenopathy and No supraclavicular lymphadenopathy. I spent a total of 24 minutes on the date of the service which included preparing to see the patient, [id number] patient care, completing clinical (more content not included)... [facility] 08-30-2023 Instructions Mary Carmen Cline MD - 08/30/2023 2:36 PM EDT Images from the original note were not included. Gallstones Gallstones are stone-like objects that form in the gallbladder or bile ducts. Gallstones can be tiny (the size of a grain of sand), or may be as large as a golf ball. Depending on the symptoms, people who have gallstones may not need treatment, or they may need to take medication or have surgery to remove their gallbladder. If the stones are in the bile ducts, they usually need to be removed by endoscopy. What is the gallbladder? The gallbladder is an organ that resembles a small pear. It is located under the liver on the right side of the abdomen. The function of the gallbladder is to store and dispense bile, a fluid that is produced by the liver and helps digest fats in the foods you eat. Bile is made up of several substances, including bilirubin and cholesterol. The gallbladder is connected to the liver and the intestine by a group of ducts, including the hepatic duct, the cystic duct, and the common bile duct. When you eat, the gallbladder sends bile through the common bile duct into the intestine to help you digest food, particularly fatty foods. What are the complications of gallstones? Gallstones can block the ducts and hinder the flow of bile from the liver or gallbladder to the intestine. This blockage can cause bloating, nausea, vomiting, and pain in your abdomen, shoulder, back, or chest. Gallstones can also cause the gallbladder or bile ducts to become infected. A blockage in the common bile duct can cause jaundice (yellowing of your skin or eyes) or can irritate the pancreas. How do gallstones form? There are two types of gallstones: pigment stones (made up of bilirubin) and cholesterol stones (made up of cholesterol). Most gallstones are cholesterol stones. Cholesterol gallstones can form when there is too much cholesterol or bilirubin in the bile. Gallstones can also develop if the gallbladder does not completely empty itself of bile. Pigment gallstones may form in people who have certain conditions, such as cirrhosis of the liver or blood disorders. Who is at risk for gallstones? The following have an increased risk for developing gallstones: women people over the age of 40 people who have a family history of gallstones (relatives who have the disease) people who are overweight or obese people who lose a great deal of weight in a short period of time people who have diabetes people with Crohn s disease people whose diet is high in fat and cholesterol people who take drugs that lower cholesterol [place] and people of [place] descent What are the symptoms of gallstones? In many cases, people who have gallstones do not have any symptoms. These gallstones are known as silent stones. The main symptom of gallstones is pain, which can last from several minutes to several hours. Pain can occur when gallstones move from the gallbladder into one of the ducts (the hepatic duct, the cystic duct, and the common bile duct). Gallstones that migrate can cause conditions such as acute cholecystitis (inflammation of the gallbladder), cholangitis (infection and inflammation of the bile ducts), and pancreatitis (inflammation of the pancreas). The pain may be located in the upper part of the abdomen, between the shoulder blades, or under the right shoulder. Other symptoms of gallstones include: sweating vomiting fever a yellow tint to the skin (jaundice) How are gallstones diagnosed? The most commonly used test to detect gallstones is ultrasound. Ultrasound is a procedure that transmits high-frequency sound waves through body tissues. The echoes are recorded and transformed into video or photographic images of the internal structures of the body. Other tests that may help in the diagnosis of gallstones include the following: computed tomography (CAT scan) endoscopic retrograde cholangiopancreatography (ERCP In this test, an endoscope--a flexible tube with a light and a camera attached--is inserted into the patient's mouth, down the throat, and into the stomach and small intestine. A dye is injected to allow the bile ducts to stand out. If there are gallstones in the bile duct, they can be removed by the endoscope. magnetic resonance cholangiopancreatography (MRCP): In MRCP, the bile ducts are examined with magnetic resonance imaging (MRI), a test that uses a large magnet, radio waves, and a computer to produce very clear images of parts of the body. Unlike ERCP, MRCP can only diagnose gallstones; it cannot be used to treat gallstones. endoscopic ultrasound (EUS): This procedure combines endoscopy with ultrasound. In EUS, a small ultrasound transducer is installed on the tip of an endoscope and inserted into the patient's mouth. Because the EUS transducer can get close to the gallbladder and bile ducts, the images obtained with EUS can be more accurate and detailed than images provided by traditional ultrasound. How are gallstones treated? In most cases, if you have gallstones in the gallbladder but no symptoms (silent stones), you probably do not need treatment. If you have symptoms such as pain, you will probably need to be treated. The treatment that is used most often for gallstones is surgery to remove the gallbladder, which is known as a cholecystectomy. In the vast majority (90%) of cases, this surgery is performed laparoscopically. Laparoscopic cholecystectomy is known as a minimally invasive procedure because it uses several small incisions instead of one large one. A laparoscope, a narrow tube with a camera, is inserted through one incision. The camera allows your doctor to see your gallbladder on a TV screen. Your gallbladder is then removed through another small incision. If the patient has certain complications associated with gallstones--such as inflammation, infection, major scarring from a previous surgery, a bleeding disorder, or a condition that would make it difficult to see through the laparoscope--the surgeon may have to remove the gallbladder with an open cholecystectomy through an incision in the abdomen.This procedure requires a longer hospital stay (3-5 days). If there are gallstones in the bile duct, they need to be removed in most cases even if you do not have any symptoms. This is done most commonly with the endoscopic retrograde cholangiopancreatography (ERCP) procedure. Can I digest food without a gallbladder? You don't need a gallbladder in order to digest food properly. If your gallbladder is removed, bile will flow directly from your liver through the hepatic duct and the common bile duct to the small intestine. After the surgery, you will probably have to go to the bathroom more frequently, and you may have softer stools for a short time. Non-surgical treatment If a patient is unable to undergo surgery, the doctor can prescribe certain drugs to dissolve the gallstones. The drugs are made from bile acid and are used to treat cholesterol stones only. The two drugs used for treatment are ursodiol (Actigall ) and chenodiol (Chenix ). Patients usually have to take these drugs for months or even years in order to dissolve the gallstones. In many cases, gallstones may recur within five years in people who take these drugs. References [employer]. Gallstones Accessed 03/29/2014. [employer]. Gallstones Accessed 03/29/2014. [employer]estive [employer]. ERCP (Endoscopic Retrograde Cholangiopancreatography) Accessed 03/29/2014. Copyright 8209-8106 The [facility]. All rights reserved. This information is provided by the [facility] and is not intended to replace the medical advice of your doctor or health care provider. Please consult your health care provider for advice about a specific medical condition. For additional health information, please contact the Center [facility] Information at the [facility] or toll-free extension [phone]. If you prefer, you may visit [email or web address] or [email or web address]. This document was last reviewed on: 2014 Laparoscopic Cholecystectomy (Gallbladder Removal) What is a laparoscopic cholecystectomy (gallbladder removal)? A laparoscopic cholecystectomy is a surgery during which the doctor removes your gallbladder. This procedure uses several small cuts instead of one large one. A laparoscope, a narrow tube with a camera, is inserted through one incision. This allows your doctor to see your gallbladder on a screen. Your gallbladder is then removed through another small incision. When is a laparoscopic cholecystectomy used? The procedure is used when you have stones in your gallbladder. The gallbladder stores bile, a fluid made by your liver. Bile helps digest fats in the foods you eat. Gallstones can block the flow of bile in your digestive system. This blockage can cause bloating, nausea, vomiting, and pain in your abdomen, shoulder, back, or chest. Gallstones can also block the ducts that channel the bile from the liver or gallbladder to the intestine. Gallstones can cause the gallbladder to become infected. A blockage in the common bile duct can cause jaundice (yellowing of your skin or eyes) or irritate the pancreas. Gallbladder and surrounding anatomy What happens during the surgery? A general anesthetic is given to relax your muscles, prevent pain, and help you fall asleep. Your abdomen is inflated with carbon dioxide, a harmless gas. The laparoscope is then inserted through a cut in your navel, so your doctor can look inside. A cholangiogram (a special X-ray) may be done while the surgery is going on to check for stones in your common bile duct. Other instruments are then inserted through additional small incisions. Your gallbladder is removed through one of these incisions. What are the potential risks and complications? The risk of complications is very low, however, potential risks might include: Bleeding Infection Common bile duct injury Minor shoulder pain (from the carbon dioxide gas) Bile leakage What are the benefits of laparoscopic cholecystectomy? Less discomfort than regular surgery [place] hospital stay, with a quicker recovery time compared to regular (open) surgery Smaller scars than regular surgery Call your doctor if you experience: Increasing pain and redness at an incision (cut) site Fever higher than 101 degrees Draining at the incision site that increases or becomes foul smelling What is an open cholecystectomy? A cholecystectomy is the removal of your gallbladder through a cut in the upper abdomen. An open cholecystectomy might be required instead of a laparoscopic cholecystectomy because of: Major scarring from a previous surgery A bleeding disorder A condition that would make it difficult to see through the laparoscope What happens during an open cholecystectomy? A general anesthetic is given to relax your muscles, prevent pain, and help you fall asleep. A single cut is made below the right side of your rib cage or in the center of the abdomen. Your doctor can see the gallbladder and surrounding anatomy through the cut. The gallbladder is cut away from surrounding tissue. The blood supply is tied off and divided. Sometimes a cholangiogram (a special X-ray) is done to check for stones in the common bile duct. If there are stones in the common bile duct, they are removed at this time. The skin is closed using surgical clips and stitches. References [employer]. Cholecystectomy Accessed 11/15/2015. [employer]. Laparoscopic Gallbladder Removal (Patient Information from [facility] Accessed 11/15/2015. Copyright 7431-7258 The [facility]. All rights reserved This information is provided by the [facility] and is not intended to replace the medical advice of your doctor or health care provider. Please consult your health care provider for advice about a specific medical condition. For additional health information, please contact the [facility] Information at the [facility] or toll-free extension [phone]. If you prefer, you may visit [email or web address] or [email or web address]. This document was last reviewed on: 2015 documented in this encounter [facility] 08-30-2023 History of Present illness Narrative Fahad Gaxiola Comanche Jr is a 68 year old, White male who presents with complaints of stones. On 03 July patient went to the emergency room for evaluation of right upper quadrant pain. He states he had had intermittent episodes of some pain in the right upper quadrant for the last for 5 years but they were more crampy in nature not related to food and only lasted seconds to minutes. This episode was stain in the right upper quadrant. He states that lasted 6 hours. He did have some nausea and dry heaves. He had no fever. He denies any pancreatitis or jaundice. He was seen in the emergency room where they did a CT scan of his chest to rule out a PE and he was found not to have any evidence of a pulmonary embolism. But he did have a couple calcified stones and a distended ladder. His lipase was normal his white count was normal and he had some mild elevations of his liver function test but his alkaline phosphatase and bilirubin were normal his total protein and albumin was also normal. CT of his chest did not describe any morphologic issues with his liver. He is here now for evaluation. PAST MEDICAL HISTORY Diagnosis Date Carotid atherosclerosis Cataract COPD (chronic obstructive pulmonary disease) (HCC) Elevated TSH Essential hypertension Hypothyroidism Leukoplakia of tongue Mixed hyperlipidemia PAST SURGICAL HISTORY Procedure Laterality Date ALVEOLOPLASTY IN CONJUNCTION WITH EXTRACTIONS - FOUR OR MORE TEETH OR TOOTH SPACES, PER QUADRANT PAST SURGICAL HISTORY OF Bowel obstruction and appendectomy at age 6 PAST SURGICAL HISTORY OF Right arthroscopic knee surgery REMV CATARACT EXTRACAP,INSERT LENS 2020 VASECTOMY Social History Tobacco Use Smoking status: Every Day Packs/day: 1 Types: Cigarettes Smokeless tobacco: Never Substance Use Topics Alcohol use: Yes Comment: occasional Drug use: Never FAMILY HISTORY Problem Relation Age of Onset Heart disease Mother Heart disease Father Heart disease Brother ALLERGIES No Known Allergies No question data found. Current Outpatient Medications Medication Sig amLODIPine (NORVASC) 5 mg tablet Take 5 mg by mouth. irbesartan (AVAPRO) 75 mg tablet Take 75 mg by mouth. metoprolol succinate ER (TOPROL XL) 50 mg 24 hr tablet Take by mouth. levothyroxine (SYNTHROID) 25 mcg tablet once daily. propranolol ER (INDERAL LA) 60 mg 24 hr capsule once daily. Telmisartan 20 mg tablet once daily. INCRUSE ELLIPTA 62.5 mcg/actuation inhaler Inhale 1 Puff as instructed once daily. levocetirizine 5 mg tablet Take 5 mg by mouth once daily. atorvastatin (LIPITOR) 40 mg tablet Take 1 tablet by mouth every afternoon. docosahexaenoic acid/epa (FISH OIL ORAL) Take by mouth once daily. MULTIVITAMIN ORAL Take by mouth once daily. ascorbic acid (VITAMIN C ORAL) Take by mouth once daily. LOW-DOSE ASPIRIN ORAL Take by mouth once daily. potassium citrate ER (UROCIT-K) 10 mEq (1,080 mg) Take by mouth once daily. dupilumab (DUPIXENT PEN) 200 mg/1.14 mL pen injection every 2 weeks. No current facility-administered medications for this visit. REVIEW OF SYSTEMS PAIN ASSESSMENT: Negative for pain, history of chronic pain, or current treatment for a chronic pain condition. GENERAL: No weight loss, malaise or fevers NECK: Negative for lumps, goiter, pain and significant neck swelling RESPIRATORY: Negative for cough, hemoptysis, wheezing, COPD, dyspnea or shortness of breath, patient is a smoker CARDIOVASCULAR: Hypertension, history of peripheral vascular disease. GI: See HPI : No history of dysuria, frequency or incontinence MUSCULOSKELETAL: back pain HEMATOLOGY/LYMPHOLOGY: Negative for prolonged bleeding, bruising easily or swollen nodes ENDOCRINE: Negative for cold or heat intolerance, polyuria, polydipsia and goiter PHYSICAL EXAM: BP 183/90 Ht 5' 3 (1.60m) Wt 118 lb (53.5kg) BMI 20.91 kg/(m^2). General Appearance: Well appearing, alert, in no acute distress, well-hydrated, well nourished.. Eyes: Normal sclera Skin: Skin texture and turgor normal, no suspicious rashes or lesions, Negative for jaundice or pallor. Neck: Supple, trachea midline Lungs: Lungs clear to auscultation. No wheezing, rhonchi, rales.. Heart: RRR without murmur, gallop, or rubs. No ectopy. Abdomen: Normal abdominal exam, Abdomen soft, non-tender. Bowel sounds normal. No masses, organomegaly, patient with a right lower quadrant scar from an appendectomy as a youth and it appears that he has a feeding tube scar site as well.. Musculoskeletal: Joint pain Back. Lymph Nodes: No cervical lymphadenopathy and No supraclavicular lymphadenopathy. I spent a total of 24 minutes on the date of the service which included preparing to see the patient, [id number] patient care, completing clinical documentation, obtaining and/or reviewing separately obtained history, performing a medically appropriate examination, and counseling and educating the patient/family/caregiver. Assessment and plan: I do believe the patient had 1 episode of symptomatic cholelithiasis. The other discomfort that he has had near his right upper quadrant and back do not appear to be related to his gallbladder. He does have some issues with his back so I suspect it is more thoracolumbar related than intra-abdominal he related. I did discuss the difference between a symptomatic and asymptomatic patient. I did discuss the complications of gallstones. I did give him an information sheet in regards to gallstones. Because he has only had 1 episode I told him I him okay to watch to see if he starts having more persistent symptoms. I told him if he gets these episodes like he had that sent him to the emergency room more frequently than we need to talk about removing his gallbladder. He does have calcified stone so he is not a candidate for dissolution therapy. Patient will call me if he starts having more problems. Mary Carmen Cline M.D., FACS documented in this encounter [facility] 08-25-2023 Note HNO ID: [id number] Author: JESSY STAFFORD MD Service: ? Author Type: Physician Type: Progress Notes Filed: 08/28/2023 15:26 Note Text: Fahad De Leon Jr 1955 REFERRING PHYSICIAN: No ref. provider found CHIEF COMPLAINT: New Patient and Abdominal Pain HPI: The patient is a 68 year old male presents with abnormal findings on gallbladder ultrasound. He had presented to [facility] ED with right lower rib pain. He had findings of cholelithiasis by CT scan. He has also known elevated LFTS. Has persistently elevated LFTs from labs in March 2023 - AST 757, Alkphos 181, ALT 491, tbili 1.9 - though 07/06/2023 - LFTs were normal He has a history of ETOH use in the past. He was referred to a local general surgeon but the patient states that they would not do his surgery He states that he is presently pain free. He has an unknown liver fibrosis status, as patient has records from an outside medical facility, not available for review in this patient encounter. PAST MEDICAL HISTORY Diagnosis Date Carotid atherosclerosis Cataract COPD (chronic obstructive pulmonary disease) (HCC) Elevated TSH Essential hypertension Hypothyroidism Leukoplakia of tongue Mixed hyperlipidemia PAST SURGICAL HISTORY Procedure Laterality Date ALVEOLOPLASTY IN CONJUNCTION WITH EXTRACTIONS - FOUR OR MORE TEETH OR TOOTH SPACES, PER QUADRANT PAST SURGICAL HISTORY OF Bowel obstruction and appendectomy at age 6 PAST SURGICAL HISTORY OF Right arthroscopic knee surgery REMV CATARACT EXTRACAP,INSERT LENS 2020 VASECTOMY Current Outpatient Medications Medication Sig levothyroxine (SYNTHROID) 25 mcg tablet once daily. propranolol ER (INDERAL LA) 60 mg 24 hr capsule once daily. Telmisartan 20 mg tablet once daily. INCRUSE ELLIPTA 62.5 mcg/actuation inhaler Inhale 1 Puff as instructed once daily. levocetirizine 5 mg tablet Take 5 mg by mouth once daily. atorvastatin (LIPITOR) 40 mg tablet Take 1 tablet by mouth every afternoon. docosahexaenoic acid/epa (FISH OIL ORAL) Take by mouth once daily. MULTIVITAMIN ORAL Take by mouth once daily. ascorbic acid (VITAMIN C ORAL) Take by mouth once daily. LOW-DOSE ASPIRIN ORAL Take by mouth once daily. potassium citrate ER (UROCIT-K) 10 mEq (1,080 mg) Take by mouth once daily. dupilumab (DUPIXENT PEN) 200 mg/1.14 mL pen injection every 2 weeks. No current facility-administered medications for this visit. ALLERGIES: Patient has no known allergies. PERSONAL HISTORY: Social History Tobacco Use Smoking status: Every Day Packs/day: .75 Types: Cigarettes Smokeless tobacco: Never Substance Use Topics Alcohol use: Yes Comment: occasional Drug use: Never FAMILY HISTORY Problem Relation Age of Onset Heart disease Mother Heart disease Father Heart disease Brother The review of systems data was entered by the nurse and reviewed by fl Nursing Notes: Naila Looney MA 08/25/2023 2:58 PM Signed REVIEW OF SYSTEMS: General: The patient denies fatigue, denies weight loss, denies weight gain, denies feeling hot, and denies feelings of cold. Eyes: The patient denies glaucoma, NOTES eye injury/surgery, wears glasses or contacts. Ear/Nose/Throat: The patient denies allergies, denies hayfever, denies ear infections, and denies bloody noses. Cardiovascular: The patient denies chest pain, denies heart disease, NOTES high blood pressure,denies cardiac stent, denies prior heart attack, denies irregular heart beat, NOTES high cholesterol, denies poor circulation, denies heart failure, other cardiac issues, denies claudication, NOTES COPD, denies cold feet, denies peripheral arterial stent. Respiratory: The patient denies tuberculosis, denies pneumonia, denies frequent cough, denies pulmonary embolism, denies shortness of breath, and denies coughing up blood. Gastrointestinal: The patient denies difficulty swallowing, denies acid reflux, denies ulcers, denies vomiting, denies jaundice/hepatitis, NOTES gallbladder problems, denies black or tarry stools, denies hemorrhoids, denies bleeding from rectum, denies diverticulitis, denies constipation, denies diarrhea, denies loss of stool control, and denies hernias. Kidney/Bladder: The patient denies kidney stones, denies urine infections, and denies bloody urine. Skin: The patient denies a history of skin cancer, denies bleeding/changing moles, and denies a history of skin rash. Neurologic: The patient denies a history of epilepsy/convulsions, denies headaches, denies head/spinal injuries, and denies stroke/TIA. Psychiatric: The patient denies psychiatric medications, denies depression, and denies voices, denies substance abuse. Endocrine: The patient NOTES thyroid disorders, denies diabetes, and denies hormonal problems. Hematologic: The patient denies a history of bruising, denies bleeding, and denies anemia, denies blood clots. Infections: The patient NOTES a history of (more content not included)... [facility] 08-25-2023 History of Present illness Narrative Fahad De Leon Jr 1955 REFERRING PHYSICIAN: No ref. provider found CHIEF COMPLAINT: New Patient and Abdominal Pain HPI: The patient is a 68 year old male presents with abnormal findings on gallbladder ultrasound. He had presented to [facility] ED with right lower rib pain. He had findings of cholelithiasis by CT scan. He has also known elevated LFTS. Has persistently elevated LFTs from labs in March 2023 - AST 757, Alkphos 181, ALT 491, tbili 1.9 - though 07/06/2023 - LFTs were normal He has a history of ETOH use in the past. He was referred to a local general surgeon but the patient states that they would not do his surgery He states that he is presently pain free. He has an unknown liver fibrosis status, as patient has records from an outside medical facility, not available for review in this patient encounter. PAST MEDICAL HISTORY Diagnosis Date Carotid atherosclerosis Cataract COPD (chronic obstructive pulmonary disease) (HCC) Elevated TSH Essential hypertension Hypothyroidism Leukoplakia of tongue Mixed hyperlipidemia PAST SURGICAL HISTORY Procedure Laterality Date ALVEOLOPLASTY IN CONJUNCTION WITH EXTRACTIONS - FOUR OR MORE TEETH OR TOOTH SPACES, PER QUADRANT PAST SURGICAL HISTORY OF Bowel obstruction and appendectomy at age 6 PAST SURGICAL HISTORY OF Right arthroscopic knee surgery REMV CATARACT EXTRACAP,INSERT LENS 2020 VASECTOMY Current Outpatient Medications Medication Sig levothyroxine (SYNTHROID) 25 mcg tablet once daily. propranolol ER (INDERAL LA) 60 mg 24 hr capsule once daily. Telmisartan 20 mg tablet once daily. INCRUSE ELLIPTA 62.5 mcg/actuation inhaler Inhale 1 Puff as instructed once daily. levocetirizine 5 mg tablet Take 5 mg by mouth once daily. atorvastatin (LIPITOR) 40 mg tablet Take 1 tablet by mouth every afternoon. docosahexaenoic acid/epa (FISH OIL ORAL) Take by mouth once daily. MULTIVITAMIN ORAL Take by mouth once daily. ascorbic acid (VITAMIN C ORAL) Take by mouth once daily. LOW-DOSE ASPIRIN ORAL Take by mouth once daily. potassium citrate ER (UROCIT-K) 10 mEq (1,080 mg) Take by mouth once daily. dupilumab (DUPIXENT PEN) 200 mg/1.14 mL pen injection every 2 weeks. No current facility-administered medications for this visit. ALLERGIES: Patient has no known allergies. PERSONAL HISTORY: Social History Tobacco Use Smoking status: Every Day Packs/day: .75 Types: Cigarettes Smokeless tobacco: Never Substance Use Topics Alcohol use: Yes Comment: occasional Drug use: Never FAMILY HISTORY Problem Relation Age of Onset Heart disease Mother Heart disease Father Heart disease Brother The review of systems data was entered by the nurse and reviewed by me Nursing Notes: Naila Looney MA 08/25/2023 2:58 PM Signed REVIEW OF SYSTEMS: General: The patient denies fatigue, denies weight loss, denies weight gain, denies feeling hot, and denies feelings of cold. Eyes: The patient denies glaucoma, NOTES eye injury/surgery, wears glasses or contacts. Ear/Nose/Throat: The patient denies allergies, denies hayfever, denies ear infections, and denies bloody noses. Cardiovascular: The patient denies chest pain, denies heart disease, NOTES high blood pressure,denies cardiac stent, denies prior heart attack, denies irregular heart beat, NOTES high cholesterol, denies poor circulation, denies heart failure, other cardiac issues, denies claudication, NOTES COPD, denies cold feet, denies peripheral arterial stent. Respiratory: The patient denies tuberculosis, denies pneumonia, denies frequent cough, denies pulmonary embolism, denies shortness of breath, and denies coughing up blood. Gastrointestinal: The patient denies difficulty swallowing, denies acid reflux, denies ulcers, denies vomiting, denies jaundice/hepatitis, NOTES gallbladder problems, denies black or tarry stools, denies hemorrhoids, denies bleeding from rectum, denies diverticulitis, denies constipation, denies diarrhea, denies loss of stool control, and denies hernias. Kidney/Bladder: The patient denies kidney stones, denies urine infections, and denies bloody urine. Skin: The patient denies a history of skin cancer, denies bleeding/changing moles, and denies a history of skin rash. Neurologic: The patient denies a history of epilepsy/convulsions, denies headaches, denies head/spinal injuries, and denies stroke/TIA. Psychiatric: The patient denies psychiatric medications, denies depression, and denies voices, denies substance abuse. Endocrine: The patient NOTES thyroid disorders, denies diabetes, and denies hormonal problems. Hematologic: The patient denies a history of bruising, denies bleeding, and denies anemia, denies blood clots. Infections: The patient NOTES a history of measles and mumps, denies rheumatic fever, and denies sexually transmitted diseases. Musculoskeletal: The patient NOTES back pain/injury, denies back problems, denies sciatica, denies knee/foot trouble, denies arthritis, or denies gout. When was patient's last Mammogram screening? N/A Naila Looney MA PHYSICAL EXAMINATION: General: The patient is 68 year old male, well nourished, well hydrated in no acute distress. The patient is oriented to time, place, and person. VITALS: Blood pressure 154/68, pulse 77, temperature 36.8 C (98.3 F), height 160 cm (5' 3), weight 54.2 kg (119 lb 6.4 oz), SpO2 98%. Body mass index is 21.15 kg/m . Head: Normal cephalic, atraumatic Eyes: pupils are equally round, sclera are clear/anicteric Neck is supple with no tracheal deviation Cardiac: regular Respiratory: Normal respiratory excursion and pattern. Abdominal exam: benign Extremities: no clubbing, cyanosis or edema. Neuro: non focal Psych: normal mood Assessment IMPRESSION: cholelithiasis, elevated liver enzymes, history of ETOH use PLAN: I have discussed the above with the patient and his , Rocio, who is present with him. Will refer patient to [facility] for consideration of gallbladder surgery. The patient states to call , patient's as patient has difficulty hearing, can leave voice mail. I personally made call to [facility] general surgery for them to contact patient to schedule an appointment The patient acknowledges the above. I have answered all questions to the patient s satisfaction and the patient has no further questions. I have confirmed and edited as necessary, the PFSH and ROS obtained by others. Consultation requested by Dr. Gosia Delaney for an opinion regarding patient's cholelithiasis. My final recommendations will be communicated back to the requesting physician by way of shared Medical record or letter to requesting physician via US mail. Diagnoses: (K80.20) Calculus of gallbladder without cholecystitis without obstruction (primary encounter diagnosis) I spent a total of 31 minutes on the date of the service which included preparing to see the patient with review of any pertinent laboratory studies/radiological imaging/medical records from other medical facilities such as [facility], [id number] patient care, obtaining oral medical history from the patient in this encounter, performing a medically appropriate examination, counseling and educating the patient/family/caregiver, and ordering and/or scheduling of medications/tests/procedures, and completing appropriate medical documentation. Jessy Stafford MD documented in this encounter [facility] 08-25-2023 Nurse Note REVIEW OF SYSTEMS: General: The patient denies fatigue, denies weight loss, denies weight gain, denies feeling hot, and denies feelings of cold. Eyes: The patient denies glaucoma, NOTES eye injury/surgery, wears glasses or contacts. Ear/Nose/Throat: The patient denies allergies, denies hayfever, denies ear infections, and denies bloody noses. Cardiovascular: The patient denies chest pain, denies heart disease, NOTES high blood pressure,denies cardiac stent, denies prior heart attack, denies irregular heart beat, NOTES high cholesterol, denies poor circulation, denies heart failure, other cardiac issues, denies claudication, NOTES COPD, denies cold feet, denies peripheral arterial stent. Respiratory: The patient denies tuberculosis, denies pneumonia, denies frequent cough, denies pulmonary embolism, denies shortness of breath, and denies coughing up blood. Gastrointestinal: The patient denies difficulty swallowing, denies acid reflux, denies ulcers, denies vomiting, denies jaundice/hepatitis, NOTES gallbladder problems, denies black or tarry stools, denies hemorrhoids, denies bleeding from rectum, denies diverticulitis, denies constipation, denies diarrhea, denies loss of stool control, and denies hernias. Kidney/Bladder: The patient denies kidney stones, denies urine infections, and denies bloody urine. Skin: The patient denies a history of skin cancer, denies bleeding/changing moles, and denies a history of skin rash. Neurologic: The patient denies a history of epilepsy/convulsions, denies headaches, denies head/spinal injuries, and denies stroke/TIA. Psychiatric: The patient denies psychiatric medications, denies depression, and denies voices, denies substance abuse. Endocrine: The patient NOTES thyroid disorders, denies diabetes, and denies hormonal problems. Hematologic: The patient denies a history of bruising, denies bleeding, and denies anemia, denies blood clots. Infections: The patient NOTES a history of measles and mumps, denies rheumatic fever, and denies sexually transmitted diseases. Musculoskeletal: The patient NOTES back pain/injury, denies back problems, denies sciatica, denies knee/foot trouble, denies arthritis, or denies gout. When was patient's last Mammogram screening? N/A Naila Looney MA documented in this encounter [facility] 07-03-2023 Discharge summary Note Date/Time July 03, 2023 12:26pm [facility] Medical Records Department [address] [place] [address] Emergency Department Summary 07/03/23 MR#: [id number] Acct: [id number] Name: FAHAD DE LEON Rep #:[id number] : [id number] 67 From: Lionel Ocasio MD PCP: Dr. Gosia Delaney MD Status:REG ER Location: ED HPI History of Present Illness Chief Complaint: Chest Pain Detail of Chief Complaint: Right lower rib cage pain Informant: patient Onset/Context/Timing Onset: Today Activity at onset: sudden Timing: Intermittent Quality: Positive for Stabbing Current Severity: Mild Maximum Severity: Moderate Worsened By: Movement of Torso Relieved By: Nothing Associated Symptoms: Negative for Nausea, Vomiting, Diaphoresis, Dyspnea, Cough,Fever or Lightheadedness Narrative Narrative: 67-year-old male history of alcohol use and cirrhosis and COPD. States he has right lower rib cage pain beginning around 5 AM this morning. Denies shortness of breath. Denies hemoptysis. Denies pleuritic pain. Denies any trauma to hisrib cage. It was not over his central or left side of his chest. It was worse and now it is feeling better. He said when he got up from a lying position and hurt more. Prior Similar Symptoms: No Recent Illness/Hospitalization: No CVD Risk Factors: Negative for Diabetes PE Risk Factors: Negative for Recent Travel/Surgery, Recent Immobilization, Prior DVT or PE, Cancer or OCP + Smoking + >/=35 PFSH PFSH Medical History Alcohol abuse Alcoholism Carotid stenosis, bilateral Chest pain COPD (chronic obstructive pulmonary disease) Heart disease Herniated disc High cholesterol High triglycerides Hyperlipidemia Hypertension Liver disease Lung disease Shortness of breath Home Medications amlodipine 5 mg tablet 5 mg PO DAILY 03/30/17 [History Last Taken Unknown] aspirin 81 mg chewable tablet 81 mg PO DAILY@0800 03/30/17 [History Last Taken Unknown] levalbuterol tartrate 45 mcg/actuation aerosol inhaler 15 g IH DAILY PRN Wheezing 03/30/17 [History Last Taken Unknown] levocetirizine 5 mg tablet 5 mg PO DAILY 03/30/17 [History Last Taken Unknown] potassium citrate 10 mEq (1,080 mg) tablet,extended release 5 meq PO DAILY 03/30/17 [History Last Taken Unknown] rosuvastatin 20 mg tablet 20 mg PO DAILY 03/30/17 [History Last Taken Unknown] umeclidinium 62.5 mcg/actuation blister powder for inhalation 62.5 mcg IH DAILY PRN Wheezing 03/30/17 [History Last Taken Unknown] calcium carbonate 500 mg-vitamin D3 2.5 mcg (100 unit) chewable tablet 1 tab PO BID 09/11/20 [History Last Taken Unknown] irbesartan 75 mg tablet 75 mg PO DAILY 09/16/20 [History Last Taken Unknown] levothyroxine 25 mcg tablet 25 mcg PO DAILY 09/16/20 [History Last Taken Unknown] thiamine mononitrate (vit B1) 100 mg tablet 100 mg PO DAILY PRN 09/16/20 [History Last Taken Unknown] metoprolol succinate 50 mg tablet,extended release 24 hr 50 mg PO DAILY 04/07/21[History Last Taken Unknown] propranolol 10 mg tablet 10 mg PO QAM #30 tabs 04/07/21 [Rx Last Taken Unknown] ascorbate calcium (vitamin C) 500 mg tablet 500 mg PO DAILY 08/05/21 [History Last Taken Unknown] omega 7-bmr-wny-fish oil 300 mg-1,000 mg capsule,delayed release (Fish Oil) 1 cap PO BID 02/02/22 [History Last Taken Unknown] Allergy/AdvReac Type Severity Reaction Status Date / Time No Known Allergies Allergy Verified 07/03/23 11:55 Family History Brother Heart disease Myocardial infarction Father Heart disease Myocardial infarction Surgical History History of appendectomy History of cardiac catheterization History of intestinal surgery History of knee surgery Social History Smoking Status: Current every day smoker tobacco type: cigarettes Electronic Cigarette Use: not used second hand exposure: No alcohol intake: current alcohol intake frequency: 0-2 drinks per day Alcohol type: beer substance use type: marijuana what type of physical activity do you participate in: other details: gym frequency: 3-4 times per week angie/scientology: Spiritism seatbelt use: always ROS ROS ED ROS Narrative Denies recent illness. Review of Systems ROS Unobtainable: Denies due to encephalopathy Constitutional Constitutional ED: Denies chills or fever(s) Eyes Eyes: Reports none Cardiovascular Cardiovascular: Reports chest pain and other Details: Right lower rib cage pain. But denies any injury. Respiratory/Chest Respiratory/Chest: Denies cough, dyspnea or dyspnea on exertion Gastrointestinal Gastrointestinal: Denies abdominal pain Genitourinary Genitourinary ED: Denies dysuria or hematuria Musculoskeletal Musculoskeletal: Denies arthralgias Integumentary Denies abscess or Abrasions Neurologic Neurologic: Denies headache(s) Psychiatric Psychiatric: Denies anxiety or depression Endocrine Endocrinology: Denies cold intolerance Hematologic/Lymphatic Hematologic/Lymphatic: Denies easy bleeding or easy bruising Allergic/Immunologic Allergic/Immunologic ED: Denies mouth swelling, tongue swelling or urticaria EXAM Physical Exam Narrative Exam Narrative: 67-year-old male no acute distress vital signs stable afebrile. Appears well lying in bed. H EENT exam unremarkable. Neck nontender no JVD. Lungs clear toauscultation bilaterally. Heart regular rhythm rate about 60 no murmur. Chest wall mild tenderness over his right lower rib cage. No crepitance or air. Noticed bruising. No bony deformity. Sternum and left chest completely nontender. Back nontender. Abdomen soft nontender normal bowel sounds no peritoneal signs. No right upper quadrant tenderness. Moving all 4 extremities. Calves are nontender without edema or cords. Neurologically he isawake and alert with no focal motor deficits. Const Vital Signs: 07/03/23 11:50 07/03/23 12:15 07/03/23 12:46 Temperature 96.8 F L Temperature Source Temporal Pulse Rate 63 86 Respiratory Rate 13 16 Blood Pressure 158/79 H 160/70 H Blood Pressure Mean 105 100 Pulse Ox 96 98 Oxygen Delivery Method Room Air Room Air Room Air 07/03/23 13:00 07/03/23 14:02 07/03/23 14:35 Temperature 97.9 F Temperature Source Pulse Rate 58 L 56 L Respiratory Rate 16 14 Blood Pressure 154/72 H 188/90 H 171/66 H Blood Pressure Mean 99 122 101 Pulse Ox 99 98 Oxygen Delivery Method Room Air Positive well nourished and well developed; Negative for obese, cachectic, contractures or unkempt General Appearance ED: well developed and NAD; Negative for unkempt, cachectic, contractures or pallor Nutritional Appearance: Negative for cachectic or obese HEENT Reports moist mucous membranes normocephalic and atraumatic; Negative for trauma or tenderness Eyes PERRL and EOMs intact bilaterally General Eye ED: Negative for pale conjunctiva or scleral icterus Neck no lymphadenopathy, supple and no JVD General: Negative for tenderness Chest Wall inspection of chest normal; Negative for palpation of chest normal Chest Narrative: Mild right lower rib cage tenderness. No crepitance. No bruising. No subcu air. No history or signs of trauma. No bony deformity. Chest: Negative for tenderness Resp normal respiratory effort and clear to auscultation bilaterally Effort and Inspection: Negative for respiratory distress Auscultation: Negative for rales, rhonchi or wheezes Cardio regular rate, regular rhythm, S1 normal heart sound, S2 normal heart sound and no murmurs Rate: Negative for bradycardia or tachycardic Peripheral Pulses: pulses 2+ throughout GI normal to inspection, nondistended, normoactive bowel sounds, soft to palpation,non-tender, non-distended and no masses Back/Spine no CVA tenderness and no thoracic nor lumbar tenderness General Back: Negative for CVA tenderness Cervical Spine: Negative for cervical spine tenderness Extremity normal to inspection General Extremety ED: Negative for edema, pulses abnormal or tenderness General Extremity: Negative for edema or pulses abnormal Neuro oriented x3 and CN's II-XII intact bilaterally Sensorium / Orientation: awake, alert, oriented to person, oriented to place andoriented to time; Negative for confused, lethargic or stuporous Motor Exam: strength 5/5 throughout Psych mental status grossly normal Appearance: Negative for unkempt Attitude: No agitated Mood & Affect: Negative for depressed, anxious or tearful Skin no rashes or lesions noted and no wounds General Skin Exam: Negative for jaundice or pallor Rashes: No rashes noted Trauma: Negative for abrasion, laceration or puncture MDM MDM MDM Narrative Medical decision making narrative: 67-year-old male with right lower rib cage chest pain. No history of DVT or PE. No risk factors. I do not think this is cardiac. It is very unlikely to be a PE. He does have some mild reproducible rib cage pain but is not exquisite. Hehas no history of trauma to his ribs. Undergo a cardiac workup with a D-dimer. Repeat exam at 125 and 2:29 PM. Patient is doing well. Abdomen is benign. He is really not been having any gallbladder symptoms. His right upper quadrant has no significant tenderness. No Tran sign. I discussed with him his CTA results showing a gallstone he has had that sharp another test before. He can outpatient follow-up for further evaluation if he wanted to have a cholecystectomy but he is really not been having significant symptoms with eating. He had no fever and no vomiting. Patient is comfortable being discharged home. I think the pain he has been having is his right rib. There is no signs of a PE and this is not cardiac in etiology. He has gallstones but I do not think he is got acute cholecystitis. History & Record Review Discussion w/independent historian: Patient Additional record(s) reviewed:: Prior inpatient record, Prior outpatient record,Prior ED visit and Prior labs Lab Data Attestation: I reviewed the patient's lab results. Lab results narrative: Chemistries that show a sodium 135. Gap 4. BUN and creatinine are 19 and 1.1. Glucose 105. Troponin normal at 6. D-dimer elevated 0.89. CBC normal. White count 7. H&H 14 and 43. Platelets 208. Chest x-ray unremarkable. CTA no PE but sees Gallstones and distended gallbladder. Liver enzymes are the patient's baseline. AST 97 ALT 94. They have been much higher in the past. He has a history of alcohol use. Labs: Laboratory Results - last 24 hr 07/03/23 11:37 WBC 7.0 RBC 4.76 Hgb 14.4 Hct 43.4 MCV 91.2 MCH 30.3 MCHC 33.2 RDW Std Deviation 42.8 RDW Coeff of Roro 12.8 Plt Count 208 MPV 11.3 Immature Gran % (Auto) 0.300 Neut % (Auto) 67.7 Lymph % (Auto) 19.8 Solano % (Auto) 7.2 Eos % (Auto) 4.6 Baso % (Auto) 0.4 Absolute Neuts (auto) 4.7 Absolute Lymphs (auto) 1.38 Nucleated RBC % 0 D-Dimer Quant (PE/DVT) 0.89 H* Sodium 135 L Potassium 4.1 Chloride 103 Carbon Dioxide 28.0 Anion Gap 4 L BUN 19 H Creatinine 1.18 Estim Creat Clear Calc 45.63 Est GFR (MDRD) Af Amer 79 Est GFR (MDRD) Non-Af 65 BUN/Creatinine Ratio 16.1 Glucose 105 Calcium 9.1 Total Bilirubin 0.50 Direct Bilirubin 0.21 AST 97 H ALT 94 H Alkaline Phosphatase 106 Troponin I High Sens 6 Total Protein 6.7 Albumin 3.7 Globulin 3.0 Radiography Chest X-Ray - ED: 1 View, Read by ED Physician, Heart, Lungs, Mediastinum, Bony Structures, No Acute Disease and Chronic Changes Diagnostic Testing: Clinical Impression(s) from Imaging Studies Chest X-Ray 07/03/23 12:05 IMPRESSION: Atelectatic changes in the left lung base. Blunting of the left costophrenic angle could be small left pleural effusion. Electronically Signed: Benjy Simmons MD at 13:18 EST , Chest CTA 07/03/23 12:43 IMPRESSION: 1. No evidence of pulmonary embolism. 2. Mild atelectatic changes in the left lower lung. 3. Distended gallbladder and gallstones. Electronically Signed: Benjy Simmons MD at 13:26 EST , Chest x-ray, portable, single view, interpreted by myself shows normal cardiac silhouette. Normal lung welsh. Chronic changes. No infiltrates. No pneumothorax. No obvious rib fractures. The left hemidiaphragms mildly elevated. Atelectasis in the left base. No infiltrates. No effusions. Rhythm Strip Rhythm Strip: Sinus Rhythm Rate: 62 Ectopy: None EKG Initial EKG: Attestation: I personally reviewed and interpreted this EKG as follows: Interpretation: Sinus Rhythm and No Acute Injury Pattern Comments: Normal sinus rhythm rate of 62 no acute signs of CO or ischemia. Discharge Plan Triage Chief Complaint: Chest Pain ED Provider: Lionel Ocasio Dx/Rx/DC Orders Clinical Impression: Right-sided chest wall pain, History of cirrhosis, History of gallstones Instructions: ED Chest Pain, Uncertain Cause Prescriptions: No Action thiamine mononitrate (vit B1) 100 mg tablet 100 mg PO DAILY PRN calcium carbonate-vitamin D3 500-100 mg-unit tablet,chewable 1 tab PO BID Patient Comments: TAKE ONE TABLET BY MOUTH TWICE DAILY levothyroxine 25 mcg tablet 25 mcg PO DAILY Patient Comments: TAKE 1 TABLET BY MOUTH EVERY DAY irbesartan 75 mg tablet 75 mg PO DAILY Patient Comments: TAKE 1 TABLET BY MOUTH EVERY DAY WITH SUPPER FOR BLOOD PRESSURE REDUCTION metoprolol succinate 50 mg tablet extended release 24 hr 50 mg PO DAILY propranolol 10 mg tablet 10 mg PO QAM Qty: 30 4RF ascorbate calcium (vitamin C) 500 mg tablet 500 mg PO DAILY omega 9-awk-igl-fish oil [Fish Oil] 300-1,000 mg capsule,delayed release(DR/EC) 1 cap PO BID amlodipine 5 MG tablet 5 mg PO DAILY potassium citrate 10 MEQ tablet extended release 5 meq PO DAILY aspirin 81 MG tablet,chewable 81 mg PO DAILY@0800 rosuvastatin 20 MG tablet 20 mg PO DAILY levalbuterol tartrate 15 GM HFA aerosol inhaler 15 g IH DAILY PRN (Reason: Wheezing) levocetirizine 5 MG tablet 5 mg PO DAILY umeclidinium 62.5 MCG blister with device 62.5 mcg IH DAILY PRN (Reason: Wheezing) Primary Care Provider: Gosia Delaney Referrals: Gosia Delaney MD [Primary Care Provider] - As Needed Activity Restrictions/Additional Instructions: Motrin and Tylenol for pain. Follow-up with your doctor if is getting worse. Appears to be your right lower rib cage that is tender. It should get better. If you are having abdominal pain with eating it could be the gallstones but your labs for that were unremarkable. This is not your heart and is not a blood clot. Disposition Disposition: Home, Self Care What to do if you have Problems For any increased pain, shortness of breath, bleeding, nausea or vomiting, chestpain, or any unexpected problems, contact your Primary Care Provider. Call [facility] ([phone]) or report to the closest Emergency Room. Call 911 if necessary. 07/03/23 1451 <Electronically signed by Lionel Ocasio MD> Cosigner Signature (if applicable): CC: Dr. Gosia Delaney MD ~ Signed [facility] Work Phone: Evaluation noteNo assessment information available [facility] Work Phone: Evaluation note* Diagnosis Onset Date Resolution Status Carotid stenosis, asymptomatic acute Essential tremor chronic [facility] Work Phone: Evaluation note* Diagnosis Calculus of gallbladder without cholecystitis without obstruction- Primary Calculus of gallbladder without mention of cholecystitis or obstruction [facility] Diagnosis Symptomatic cholelithiasis- Primary Calculus of gallbladder without mention of cholecystitis or obstruction [facility] Diagnosis Onset Date Resolution Status Admit Date Carotid stenosis, asymptomatic acute November 08, 2024 7:56am Essential tremor chronic November 7:56am [facility] Work Phone: Hospital Discharge instructions Additional Instructions Motrin and Tylenol for pain. Follow-up with your doctor if is getting worse. Appears to be your right lower rib cage that is tender. It should get better. If you are having abdominal pain with eating it could be the gallstones but your labs for that were unremarkable. This is not your heart and is not a blood clot.[facility] Work Phone: Reason for referral (narrative)No reason for referral information availableWMorrow County Hospital Work Phone: Chief Complaint and Reason for Visit Chief Complaint BILAT CS Chief Complaint 9 M FU STENOSIS Reason for Visit Carotid stenosis, as ymptomatic Essential tremor Chief Complaint 9 M FU STENOSIS NICOTINE DEPENDENCE Reason for Visit Carotid stenosis, as ymptomatic Essential tremor Chief Complaint NICOTINE DEPENDENCE Chief Complaint NICOTINE DEPENDENCE EORDER Chief Complaint NICOTINE DEPENDENCE EORDER EORDER Chief Complaint EORDER EORDER 6 M FU LE ATHEROSCLEROSIS Reason for Visit Carotid stenosis, as ymptomatic Essential tremor Chief Complaint EORDER EORDER 6 M FU LE ATHEROSCLEROSIS chest pain Reason for Visit Carotid stenosis, as ymptomatic Essential tremor Chief Complaint Admit Date COPD June 29, 2024 6:45am Chief Complaint Admit Date 1 Y FU November 08, 2024 7:56a m Reason for Visit Admit Date Carotid stenosis, asymptomatic November 08, 2024 7:56am Essential tremor November 08, 2024 7:56a m Family History No Family History Records Found Relationship Condition Age at Onset Recorded Date/T blaise brother Cardiac disease Unknown Myocardial infarction Unknown father Cardiac disease Unknown Advance Directives No Advanced Directives Records Found Advance Directive Response Recorded Date/ Time Living Will Yes March 30 9:20pm Power of Construction Plumber Yes March 30, 2017 9:20pm Advance Directive Response Recorded Date/ Time Living Will Yes March 30 10:20pm Power of Construction Plumber Yes March 30, 2017 10:20pm Advance Directive Response Recorded Date/ Time Living Will No July 03 11:56am Power of Construction 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 No July 03, 2023 12:56pm Summary Purpose Additional Source Comments Care Teams (unrecognized sec tion and content) Team Status: Active Member Role Status Dates Dr. Gosia Delaney MD Family Provider Active Dr. Gosia Delaney MD Primary Care Provider Active Team Status: Active Member Role Status Dates Dr. Gosia Delaney MD Primary Care Provider Active Dr. Gosia Melendez MD Attending Provider Active Dr. Tuan Foster MD Referring Provider Active Team Status: Inactive Member Role Status Dates Dr. Gosia Delaney MD Primary Care Provider Active Dr. Tuan Foster MD Attending Provider, Referring Provider Active Team Status: Inactive Member Role Status Dates Dr. Gosia Delaney MD Primary Care Provide r, Attending Provider, Referring Provider Active Team Status: Inactive Member Role Status Dates Dr. Gosia Delaney MD Primary Care Provider, Referring P lev Active Dr. Tuan Foster MD Attending Provider Active Team Status: Active Member Role Status Dates Dr. Gosia Delaney MD Primary Care Provider Active Dr. Gosia Melendez MD Attending Provider Active Team Status: Inactive Member Role Status Dates Dr. Gosia Delaney MD Primary Care Provider, Attending P rotez Active Team Status: Inactive Member Role Status Dates Dr. Gosia Delaney MD Primary Care Provider Active Dr. Bradley Eisenberg MD Attending Provider Active Team Status: Active Member Role Status Dates Dr. Gosia Delaney MD Primary Care Provider, Referring P rogaroder Active Dr. Gosia Melendez MD Attending Provider Active Team Status: Inactive Member Role Status Dates Dr. Gosia Delaney MD Primary Care Provider Active Dr. Lionel Ocasio MD Emergency Provider Active Team Status: Inactive Member Role Status Dates Dr. Gosia Delaney MD Primary Care Provider Active Dr. Lionel Ocasio MD Attending Provider, Emergency Pro vider Active Tuber Helper Relationship Specialty Start Date End Date Gosia Delaney MD [address] [place] [address] PCP - General Family Medicine 07/26/23 Tuber Helper Relationship Specialty Start Date End Date Gosia Delaney MD [address] [place] [address] PCP - General Family Medicine 07/26/23 Team Status: Active Member Role Status Dates Dr. Gosia Delaney MD Primary Care Provider Active Team Status: Inactive Member Role Status Dates Dr. Gosia Delaney MD Primary Care Provider Active Start: June 21, 2024 End: June 21, 2024 Dr. Gosia Delaney MD Attending Provider Active St art: June 21, 2024 End: June 21, 2024 Dr. Gosia Delaney MD Referring Provider Active St art: June 21, 2024 End: June 21, 2024 Team Status: Inactive Member Role Status Dates Dr. Gosia Delaney MD Primary Care Provider Active Start: June 29, 2024 End: June 29, 2024 Dr. Gosia Delaney MD Attending Provider Active St art: June 29, 2024 End: June 29, 2024 Dr. Gosia Delaney MD Referring Provider Active St art: June 29, 2024 End: June 29, 2024 Team Status: Inactive Member Role Status Dates Dr. Gosia Delaney MD Primary Care Provider Active Start: July 12, 2024 End: July 12, 2024 Dr. Tina Sutherland DO Attending Provider Active Start: July 12, 2024 End: July 12, 2024 Team Status: Active Member Role/Relationship Status Dates Dr. Gosia Delaney MD Primary Care Provider Active Team Status: Inactive Member Role/Relationship Status Dates Dr. Gosia Delaney MD Primary Care Provider Active Start: July 12, 2024 End: July 12, 2024 Dr. Tina Sutherland DO Attending Provider Active Start: July 12, 2024 End: July 12, 2024 Team Status: Inactive Member Role/Relationship Status Dates Dr. Gosia Delaney MD Primary Care Provider Active Start: November 08, 2024 End: November 08, 2024 Dr. Gosia Delaney MD Referring Provider Active St art: November 08, 2024 End: November 08, 2024 Dr. Tuan Foster MD Attending Provider Active Start: November 08, 2024 End: November 08, 2024 Goals (unrecognized section and content) Goals may be documented in a n alternate sectionGoals may be documented in an alternate sectionGoals may be documented in an alternate sectionGoals may be documented in an alternate sectionGoals may be documented in an alternate sectionGoals may be documented in an alternate sectionGoals may be documented in an alternate sectionGoals may be documented in an alternate sectionGoals may be documented in an alternate sectionGoals may be documented in an alternate sectionGoals may be documented in an alternate sectionGoals may be documented in an alternate section Source Comments (unrecognize d section and content) In the event this informatio n is protected by the Federal Confidentiality of Alcohol and Drug Abuse Patient Records regulations: The Federal rules restrict any use of the information to criminally investigate or prosecute any alcohol or drug abuse patient.[facility] the event this information is protected by the Federal Confidentiality of Alcohol and Drug Abuse Patient Records regulations: The Federal rules restrict any use of the information to criminally investigate or prosecute any alcohol or drug abuse patient.[facility] Reason for Visit (unrecogniz ed section and content) Reason Comments New Patient Abdominal Pain Reason Comments GB (unrecognized sect ion and content) No Status Records FoundNo Status Records FoundNo Status Records Found INFORMATION SOURCE (unrecogn ized section and content) DATE CREATED AUTHOR 08/29/2023 [facility] DATE CREATED AUTHOR AUTHOR'S ORGANIZ ATION 08/31/2023 [facility] DATE CREATED AUTHOR AUTHOR'S ORGANIZ ATION 11/17/2024 [facility] FOR RECORDS PERTAINING TO PATIENTS WHO ARE OR HAVE BEEN ENROLLED IN A CHEMICAL DEPENDENCY/SUBSTANCEABUSE PROGRAM, SOME INFORMATION MAY BE OMITTED. This clinical summary was aggregated from multiple sources. Caution should be exercised in using it in the provision of clinical care. This summary normalizes information from multiple sources, and as a consequence, information in this document may materially change the coding, format and clinical context of patient data. In addition, data may be omitted in some cases. CLINICAL DECISIONS SHOULD BE BASED ON THE PRIMARY CLINICAL RECORDS. [employer] [facility]. provides no warranty or guarantee of the accuracy or completeness of information in this document.
[2024-11-19 21:55] LABS: AST(SGOT) 217 U/L (<=37); Alanine Aminotransfer ALT/SGPT 126 U/L (<=46); Albumin, Serum 4.3 g/dL (3.4-4.8); Alkaline Phosphatase 106 U/L (40-129); Bilirubin, Direct 0.76 mg/dL (0.00-0.30); Globulin 2.4 g/dL (2.2-4.2)
--- NOTE | 2024-11-19 22:05 | US_ITS ---
PROCEDURE: ABDOMEN LIMITED 11/19/2024 REASON FOR EXAM: ?ACUTE CHOLECYSTITIS TECHNIQUE: ABDOMEN LIMITED COMPARISON: CT 11/19/2024 FINDINGS: Gallbladder is distended with pericholecystic fluid, gallbladder wall thickening, cholelithiasis. CBD measures 7 mm. The liver, and visible pancreas are unremarkable. The right kidney measures 9 cm in length without hydronephrosis. US/Abdomen Limited IMPRESSION: Abnormal gallbladder, most consistent with cholecystitis. Reading Location: [place] [id number]
[2024-11-19 22:06] LABS: Lipase 2936 U/L (13-75)
[2024-11-19] MEDS: Piperacil/Tazobactam 3.375 GM in 0.9% Normal Saline (50mL MB+) 50 ML IV (22:29)
[2024-11-19 22:50] LABS: Troponin T High Sens 2 HR 10 ng/L (<=22)
--- NOTE | 2024-11-19 22:52 | HP.PCM.SX_ITS ---
HPI - General HPI Narrative FAHAD KIRK, is a 69 M who presents with abdominal pain. Patient reports the pain started yesterday. He has been feeling unwell for a few days. He currently denies any nausea or vomiting but he did vomit once today. [facility] Medical History Alcohol abuse Alcoholism Carotid stenosis, bilateral Chest pain COPD (chronic obstructive pulmonary disease) Heart disease Herniated disc High cholesterol High triglycerides Hyperlipidemia Hypertension Liver disease Lung disease Shortness of breath Home Medications ?Medication ?Instructions ?Recorded ?Last Taken ?Type amlodipine 5 mg tablet 5 mg PO DAILY 03/30/17 Unkno wn History aspirin 81 mg chewable tablet 81 mg PO DAILY@0800 03/11 05/26 Unknown History levalbuterol tartrate 45 15 g IH DAILY PRN Wheezing 1 05/30/16 Unknown History mcg/actuation aerosol inhaler levocetirizine 5 mg tablet 5 mg PO DAILY 03/30/17 Unkn own History potassium citrate 10 mEq (1,080 5 meq PO DAILY 7 Unknown History mg) tablet,extended release rosuvastatin 20 mg tablet 20 mg PO DAILY 03/30/17 Unkn own History umeclidinium 62.5 mcg/actuation 62.5 mcg IH DAILY PRN Wheezing 03/30/17 Unknown History blister powder for inhalation calcium 500 mg (as carbonate)-D3 1 tab PO BID 09/11/20 Unknown History 2.5 mcg (100 unit) chewable tablet levothyroxine 25 mcg tablet 25 mcg PO DAILY 09/16/20 U nknown History thiamine mononitrate (vit B1) 100 100 mg PO DAILY PRN 09/16/20 Unknown History mg tablet metoprolol succinate 50 mg 50 mg PO DAILY 04/07/21 Unk nown History tablet,extended release 24 hr ascorbate calcium (vitamin C) 500 500 mg PO DAILY 07/09 01/29 Unknown History mg tablet omega 3-zmd-nug-fish oil 300 1 cap PO BID 02/02/22 Unk nown History mg-1,000 mg capsule,delayed release (Fish Oil) Allergy/AdvReac Type Severity Reaction Status Date / Time No Known Allergies Allergy Verified 11/19/24 19:51 Family History Brother Heart disease Myocardial infarction Father Heart disease Myocardial infarction Surgical History History of appendectomy History of cardiac catheterization History of intestinal surgery History of knee surgery Social History Smoking Status: Current every day smoker tobacco type: cigarettes Electronic Cigarette Use: not used second hand exposure: No alcohol intake: current alcohol intake frequency: 0-2 drinks per day Alcohol type: beer substance use type: marijuana what type of physical activity do you participate in: other details: gym frequency: 3-4 times per week angie/adventist: Mandaen seatbelt use: always ROS Constitutional Constitutional: Denies anorexia, chills, fatigue or fever(s) Eyes Eyes: Denies blurry vision ENT HEENT: Denies abnormal hearing Cardiovascular Cardiovascular: Denies chest pain Respiratory/Chest Respiratory/Chest: Denies cough or dyspnea Gastrointestinal Gastrointestinal: Reports abdominal pain and vomiting; Denies coffee ground emesis, constipation, diarrhea or nausea Genitourinary Genitourinary: Denies change in urinary stream Integumentary Integumentary: Denies jaundice or new lesions Neurologic Neurologic: Denies abnormal gait Psychiatric Psychiatric: Denies anxiety Endocrine Endocrinology: Denies flushing Vital Signs Vital Signs Vital Signs: 11/19/24 19:54 11/19/24 20:00 11/19/24 20:08 Temperature 98.0 F Temperature Source Oral Pulse Rate 55 L 56 L Respiratory Rate 14 15 Blood Pressure 157/81 H Blood Pressure Mean 106 Pulse Ox 98 97 Oxygen Delivery Method Room Air Room Air 11/19/24 20:15 11/19/24 20:30 11/19/24 20:45 Temperature Temperature Source Pulse Rate 60 61 60 Respiratory Rate 13 15 12 Blood Pressure Blood Pressure Mean Pulse Ox 99 98 97 Oxygen Delivery Method 11/19/24 20:57 11/19/24 21:00 11/19/24 21:15 Temperature Temperature Source Pulse Rate 65 61 63 Respiratory Rate 18 13 10 L Blood Pressure 157/80 H 172/68 H 168/62 H Blood Pressure Mean 88 96 93 Pulse Ox 96 98 100 Oxygen Delivery Method 11/19/24 21:15 11/19/24 21:30 11/19/24 21:45 Temperature Temperature Source Pulse Rate 73 65 Respiratory Rate 17 16 Blood Pressure 168/62 H 168/89 H 176/82 H Blood Pressure Mean 93 106 108 Pulse Ox 91 93 Oxygen Delivery Method 11/19/24 22:00 11/19/24 22:15 Temperature Temperature Source Pulse Rate 63 Respiratory Rate 14 Blood Pressure Blood Pressure Mean Pulse Ox 96 97 Oxygen Delivery Method Weight Weight: 123 lb 7.342 oz Body Mass Index (BMI) 21.9 Physical Exam Const oriented x3 and no apparent distress Resp normal respiratory effort Cardio regular rate and regular rhythm GI soft to palpation Palpation: tender RUQ Extremity normal to inspection Results Lab / Micro Data 11/19/24 20:00 11/19/24 20:00 Labs: Laboratory Results - last 24 hr 11/19/24 20:00: WBC 16.5 H, RBC 4.43 L, Hgb 14.0, Hct 39.2 L, MCV 88.5, MCH 31.6, MCHC 35.7, RDW Std Deviation 41.6, RDW Coeff of Roro 12.8, Plt Count 227, MPV 10.5, Immature Gran % (Auto) 0.500, Neut % (Auto) 84.9 H, Lymph % (Auto) 8.8 L, Ector % (Auto) 4.3, Eos % (Auto) 1.3, Baso % (Auto) 0.2, Absolute Neuts (auto) 14.0 H, Absolute Lymphs (auto) 1.45, Nucleated RBC % 0, Sodium 130 L, Potassium 3.7, Chloride 93 L, Carbon Dioxide 22.0, Anion Gap 15, BUN 17, Creatinine 0.98, Estim Creat Clear Calc 54.76, Est GFR (MDRD) Non-Af 83, BUN/Creatinine Ratio 17.7, Glucose 136 H, Calcium 9.2, Total Bilirubin 1.04, Direct Bilirubin 0.76 H, AST 217 H, ALT 126 H, Alkaline Phosphatase 106, Troponin T High Sens 10, Total Protein 6.7, Albumin 4.3, Globulin 2.4, Lipase 2936 H 11/19/24 22:14: Troponin T Hi Sens 2 Hr 10 Imaging Radiology Impression Chest X-Ray 11/19/24 20:15 IMPRESSION: Stable appearance of the chest, without evidence of an acute cardiopulmonary abnormality. Reading Location: [id number] Abdomen/Pelvis CT 11/19/24 20:52 IMPRESSION: Findings worrisome for acute cholecystitis. Of note, there is a small amount of free fluid adjacent to the liver and surrounding the gallbladder. Recommend Surgical consultation +/- ultrasound. Reading Location: [id number] Assessment & Plan Assessment/Plan (1) Acute cholecystitis: (2) Gallstone pancreatitis: PLAN: Plan Patient has gallstone pancreatitis along with acute cholecystitis. The patient has a lipase of 2900 as well as some slight increase in the AST and ALT. Bilirubin is normal. The patient had a CT scan which showed a large amount of inflammation around the gallbladder with thickening and pericholecystic fluid as well as fluid around the liver. This appears very inflamed on the CT scan. I believe this has been brewing for several days longer than he has had pain. It is likely delayed diagnosis due to his diabetes. I would like to order a cholecystostomy tube for drainage of the biliary tree. I explained that his risks of bleeding and injury to surrounding organs are increased due to the inflammation and I recommend cholecystostomy tube at this point and delayed cholecystectomy. I will start the patient on a high level of IV fluids for his pancreatitis and recheck labs in the morning and order a cholecystostomy tube for the morning. Yakov Samano MD Pager: [facility] [address] [place] [address], [address] [place] [phone] Office:
[2024-11-20] VITALS (21 sets, daily range): BP systolic 129–203; BP diastolic 43–108; PULSE 57–86; RESP 14–20; TEMP 36.4–36.8; O2SAT 88–98; BMI 21.9
--- OUTSIDE RECORDS SUMMARY | 2024-11-20 00:35 | XMS RPT_ITS | CCD ---
Author Organization [facility] CliniSywv Care Team Providers Care Security Officers And Guards Name Role Phone Dr. Gosia Delaney Primary Care Provider [phone] Dr. Gosia Melendez Attending Provider Dr. Tuan Foster Referring Provider Dr. Gosia Delaney Primary Care Provider [phone] Gosia Delaney Referring Provider [phone] [...] Gosia Delaney MD Primary Care Provider [phone] Gosia Delaney MD Referring Provider [phone] Tuan Foster MD Attending Provider Delaney, [...] above: Take by mouth once d aily. [place] 5-Ukc-Kez-Fish Oil (Fish Oil) 300-1,000 mg capsule,delayed release(DR/EC) (12 sources) Start: 02-02-2022 [place] 7-Ivv-Rkq-Fish Oil (Fish Oil) 300-1,000 mg capsule,delayed release(DR/EC) Active 1 NMA PO TWICE A DAY February 02, 2022 12:00am Start: 02-02-2022 take 300-1000 mg by mouth twice daily [place] 0-Jxi-Zlv-Fish Oil (Fish Oil) 300-1,000 mg capsule,delayed release(DR/EC) Active 1 CAP PO TWICE A DAY February 02, 2022 12:00am Start: 02-02-2022 take 300-1000 mg by mouth twice daily [place] 4-Vpe-Bsg-Fish Oil (Fish Oil) 300-1,000 mg capsule,delayed release(DR/EC) [...] 16, 2020 8:10am omega-3 acid ethyl esters (halfway) 1000 mg oral capsule (12 sources) Start: 12-31-2020 End: 04-07-2021 take 1 capsule by mouth twice daily at mealtime [place]-3 Acid Ethyl Esters (Lovaza) 1 gram capsule [...] Facility Neurology Visit Reporton Neurology Visit Report [facility] [address], [address] [place] [address] OFFICE VISIT Date of Service: 11/08/24 MR#: [id number] Acct: [id number] Name: FAHAD DE LEON Rep #: [id number] : 1955 Provider: Dr. Tuan vo MD Age/Sex: 69/M Location: [facility]. Status: Signed HPI HPI Chief Complaint: Details: [...] common c (more content not included)... Normal [facility] Urine Sodiumon 07-12-2024 Sodium (U) [Moles/Vol] 130 mmol/L Normal Not Establ. [facility] Comment on above: Performed By: #### L [id number] #### [facility] [address] [place], [place] [address], [address] Urine sodium measurement (mo les/volume)Ordered By: Tina Sutherland on 07-12-2024 Sodium (U) [Moles/Vol] 130 mmol/L Not Establ. [facility] Absolute neutrophil countOrd ered By: Gosia Delaney on 06-21-2024 Neutrophils (Bld) [#/Vol] 5.6 10*3/uL 2.0-7.7 [facility] Albumin to globulin ratioOrd ered By: Gosia Delaney on 06-21-2024 Albumin/Globulin [Mass ratio] 1.1 {ratio} 0.9-2.4 [facility] Basophil percentageOrdered B y: Gosia Delaney on 06-21-2024 Basophils/100 WBC (Bld) 0.5 % 0-1 [facility] Bilirubin, totalOrdered By: Gosia Delaney on 06-21-2024 Bilirubin [Mass/Vol] 0.60 mg/dL 0.20-1.00 [facility] Comment on above: For patients on eltr ombopag therapy, use of Dimension [place] TBIL is not recommended. Blood urea nitrogen (BUN)/cr eatinine ratioOrdered By: Gosia Delaney on 06-21-2024 Urea nitrogen/Creatinine [Mass ratio] 12.2 mg/mg 10- [facility] CBC W/Diff, Automatedon 06-10 Absolute Lymph 2.18 X10 3/uL Normal 0.83-4.51 [facility] Comment on above: Order Comment: Order Date: 01/13/24 Order Info: 2955-3 - GEORGE Performed By: #### L [id number] #### [facility] [address] [place], [address] Absolute Neut 5.6 X10 3/uL Normal 2.0-7.7 [facility] Comment on above: Order Comment: Order Date: 01/13/24 Order Info: 2955-3 - GEORGE Performed By: #### L [id number] #### [facility] [address] [place], [address] Basophils/100 WBC (Bld) 0.5 % Normal 0-1 [facility] Comment on above: Order Comment: Order Date: 01/13/24 Order Info: 2955-3 - GEORGE Performed By: #### L [id number] #### [facility] [address] [place], [address] Eosinophils/100 WBC (Bld) 2.6 % Normal 0-5 [facility] Comment on above: Order Comment: Order Date: 01/13/24 Order Info: 2955-3 - GEORGE Performed By: #### L [id number] #### [facility] [address] [place], [address] Erythrocyte distribution width (RBC) [Ratio] 13.2 % Normal 11.6-14.6 [facility] Comment on above: Order Comment: Order Date: 01/13/24 Order Info: 2955-3 - GEORGE Performed By: #### L [id number] #### [facility] [address] [place], [address] Hematocrit (Bld) [Volume fraction] 43.8 % Normal 40-54 [facility] Comment on above: Order Comment: Order Date: 01/13/24 Order Info: 2955-3 - GEORGE Performed By: #### L [id number] #### [facility] [address] [place], [address] Hemoglobin (Bld) [Mass/Vol] 14.9 g/dL Normal 13.0-16.5 [facility] Comment on above: Order Comment: Order Date: 01/13/24 Order Info: 2955-3 - GEORGE Performed By: #### L [id number] #### [facility] [address] [place], [address] IG% 0.300 Normal 0.0-0.9 [facility] Comment on above: Order Comment: Order Date: 01/13/24 Order Info: 2955-3 - GEORGE Result Comment: IG% - Immature Granulocytes (promyelocytes, myelocytes and metamyelocytes) > 1% indicates that a LEFT SHIFT is Present. Performed By: #### L [id number] #### [facility] [address] [place], [address] Lymphocytes/100 WBC (Bld) 24.9 % Normal 19-41 [facility] Comment on above: Order Comment: Order Date: 01/13/24 Order Info: 2955-3 - GEORGE Performed By: #### L [id number] #### [facility] [address] [place], [address] MCH (RBC) [Entitic mass] 31.3 pg Normal 27.0-32.0 [facility] Comment on above: Order Comment: Order Date: 01/13/24 Order Info: 2955-3 - GEORGE Performed By: #### L [id number] #### [facility] [address] [place], [address] MCHC (RBC) [Mass/Vol] 34.0 g/dL Normal 32-36 [facility] Comment on above: Order Comment: Order Date: 01/13/24 Order Info: 2955-3 - GEORGE Performed By: #### L [id number] #### [facility] [address] [place], [address] MCV (RBC) [Entitic vol] 92.0 fL Normal 80-94 [facility] Comment on above: Order Comment: Order Date: 01/13/24 Order Info: 2955-3 - GEORGE Performed By: #### L [id number] #### [facility] [address] [place], [address] Monocytes/100 WBC (Bld) 7.9 % Normal 0-10 [facility] Comment on above: Order Comment: Order Date: 01/13/24 Order Info: 2955-3 - GEORGE Performed By: #### L [id number] #### [facility] [address] [place], [address] Neutrophils/100 WBC (Bld) 63.8 % Normal 47-70 [facility] Comment on above: Order Comment: Order Date: 01/13/24 Order Info: 2955-3 - GEORGE Performed By: #### L [id number] #### [facility] [address] [place], [address] Nucleated RBC (Bld) [#/Vol] 0 10*3/uL Normal 0-5 [facility] Comment on above: Order Comment: Order Date: 01/13/24 Order Info: 2955-3 - GEORGE Performed By: #### L [id number] #### [facility] [address] [place], [address] Platelet mean volume (Bld) [Entitic vol] 11.0 fL Normal 6.2-12.0 [facility] Comment on above: Order Comment: Order Date: 01/13/24 Order Info: 2955-3 - GEORGE Performed By: #### L [id number] #### [facility] [address] [place], [address] Platelets (Bld) [#/Vol] 245 10*3/uL Normal 150-450 [facility] Comment on above: Order Comment: Order Date: 01/13/24 Order Info: 2955-3 - GEORGE Performed By: #### L [id number] #### [facility] [address] [place], [address] RBC (Bld) [#/Vol] 4.76 10*6/uL Normal 4.6-6.2 [facility] Comment on above: Order Comment: Order Date: 01/13/24 Order Info: 2955-3 - GEORGE Performed By: #### L [id number] #### [facility] [address] [place], [address] RDW SD 45.3 fl High 35.1-43.9 [facility] Comment on above: Order Comment: Order Date: 01/13/24 Order Info: 2955-3 - GEORGE Performed By: #### L [id number] #### [facility] [address] [place], [address] WBC (Bld) [#/Vol] 8.8 10*3/uL Normal 4.4-11.0 [facility] Comment on above: Order Comment: Order Date: 01/13/24 Order Info: 2955-3 - GEORGE Performed By: #### L [id number] #### [facility] [address] [place], [address] Carbon dioxide measurementOr dered By: Gosia Delaney on 06-21-2024 CO2 [Moles/Vol] 27.0 mmol/L 21.0-32.0 [facility] Chloride measurementOrdered By: Gosia Delaney on 06-21-2024 Chloride [Moles/Vol] 97 mmol/L Low 98-107 [facility] Comprehensive Metabolic Prof ilon 06-21-2024 Albumin [Mass/Vol] 4.1 g/dL Normal 3.2-5.0 [facility] Comment on above: Order Comment: Order Date: 01/13/24 Order Info: 2955-3 - GEORGE Performed By: #### L [id number] #### [facility] [address] [place], [address] Albumin/Globulin [Mass ratio] 1.1 {ratio} Normal 0.9-2.4 [facility] Comment on above: Order Comment: Order Date: 01/13/24 Order Info: 2955-3 - GEORGE Performed By: #### L [id number] #### [facility] [address] [place], [address] ALK P 74 U/L Normal 45-117 [facility] Comment on above: Order Comment: Order Date: 01/13/24 Order Info: 2955-3 - GEORGE Performed By: #### L [id number] #### [facility] [address] [place], [address] ALT [Catalytic activity/Vol] 27 U/L Normal 16-61 [facility] Comment on above: Order Comment: Order Date: 01/13/24 Order Info: 2955-3 - GEORGE Performed By: #### L [id number] #### [facility] [address] [place], [address] AST [Catalytic activity/Vol] 21 U/L Normal 15-37 [facility] Comment on above: Order Comment: Order Date: 01/13/24 Order Info: 2955-3 - GEORGE Performed By: #### L [id number] #### [facility] [address] [place], [address] Bilirubin [Mass/Vol] 0.60 mg/dL Normal 0.20-1.00 [facility] Comment on above: Order Comment: Order Date: 01/13/24 Order Info: 2955-3 - GEORGE Result Comment: For patients on eltrombopag therapy, use of Dimension [place] TBIL is not recommended. Performed By: #### L [id number] #### [facility] [address] [place], [address] BUN/CRE 12.2 RATIO Normal 10-20 [facility] Comment on above: Order Comment: Order Date: 01/13/24 Order Info: 2955-3 - GEORGE Performed By: #### L [id number] #### [facility] [address] [place], [address] CA,Total 9.3 mg/dL Normal 8.5-10.1 [facility] Comment on above: Order Comment: Order Date: 01/13/24 Order Info: 2955-3 - GEORGE Performed By: #### L [id number] #### [facility] [address] [place], [address] Chloride [Moles/Vol] 97 mmol/L Low 98-107 [facility] Comment on above: Order Comment: Order Date: 01/13/24 Order Info: 2955-3 - GEORGE Performed By: #### L [id number] #### [facility] [address] [place], [address] CO2 [Moles/Vol] 27.0 mmol/L Normal 21.0-32.0 [facility] Comment on above: Order Comment: Order Date: 01/13/24 Order Info: 2955-3 - GEORGE Performed By: #### L [id number] #### [facility] [address] [place], [address] Creatinine [Mass/Vol] 1.23 mg/dL Normal 0.70-1.30 [facility] Comment on above: Order Comment: Order Date: 01/13/24 Order Info: 2955-3 - GEORGE Result Comment: The validity of the calculated GFR GFRAA in patients over 70 years has not been determined. Clinical correlation is essential. Performed By: #### L [id number] #### [facility] [address] [place], [address] EST GFR - AA 75 mL/min Normal >60 [facility] Comment on above: Order Comment: Order Date: 01/13/24 Order Info: 2955-3 - GEORGE Result Comment: Afri can Italian GFR Calc Performed By: #### L [id number] #### [facility] [address] [place], [address] GAP 8 Normal 5-15 [facility] Comment on above: Order Comment: Order Date: 01/13/24 Order Info: 2955-3 - GEORGE Performed By: #### L [id number] #### [facility] [address] [place], [address] GFR/1.73 sq M.predicted among non-blacks MDRD (S/P/Bld) [Vol rate/Area] 62 mL/min/{1.73_m2} Normal >60 [facility] Comment on above: Order Comment: Order Date: 01/13/24 Order Info: 2955-3 - GEORGE Result Comment: Non- GFR Calc Performed By: #### L [id number] #### [facility] [address] [place], [address] Globulin (S) [Mass/Vol] 3.6 g/dL Normal 2.2-4.2 [facility] Comment on above: Order Comment: Order Date: 01/13/24 Order Info: 2955-3 - GEORGE Performed By: #### L [id number] #### [facility] [address] [place], [address] Glucose [Mass/Vol] 95 mg/dL Normal 74-106 [facility] Comment on above: Order Comment: Order Date: 01/13/24 Order Info: 2955-3 - GEORGE Performed By: #### L [id number] #### [facility] [address] [place], [address] Potassium [Moles/Vol] 4.3 mmol/L Normal 3.5-5.1 [facility] Comment on above: Order Comment: Order Date: 01/13/24 Order Info: 2955-3 - GEORGE Performed By: #### L [id number] #### [facility] [address] [place], [address] Sodium [Moles/Vol] 132 mmol/L Low 136-145 [facility] Comment on above: Order Comment: Order Date: 01/13/24 Order Info: 2955-3 - GEORGE Performed By: #### L [id number] #### [facility] [address] [place], [address] T PROT 7.7 g/dL Normal 6.4-8.2 [facility] Comment on above: Order Comment: Order Date: 01/13/24 Order Info: 2955-3 - GEORGE Performed By: #### L [id number] #### [facility] [address] [place], [address] Urea nitrogen [Mass/Vol] 15 mg/dL Normal 7-18 [facility] Comment on above: Order Comment: Order Date: 01/13/24 Order Info: 2955-3 - GEORGE Performed By: #### L [id number] #### [facility] [address] [place], [address] Eosinophil percentageOrdered By: Gosia Delaney on 06-21-2024 Eosinophils/100 WBC (Bld) 2.6 % 0-5 [facility] Erythrocyte distribution wid th ratioOrdered By: Gosia Delaney on 06-21-2024 Erythrocyte distribution width (RBC) [Ratio] 13.2 % 11.6-14.6 [facility] Erythrocyte distribution wid th standard deviationOrdered By: Gosia Delaney on 06-21-2024 Erythrocyte distribution width (RBC) [Entitic vol] 45.3 fL High 35.1-43.9 [facility] Estimated glomerular filtrat ion rate (GFR) AmericanOrdered By: Gosia Delaney on 06-21-2024 Estimated GFR (MDRD) Amer 75 mL/min >60 [facility] Comment on above: GFR Calc Glomerular filtration rate ( GFR) estimationOrdered By: Gosia Delaney on 06-21-2024 Estimated GFR (MDRD) Non-Af Amer 62 mL/min >60 [facility] Comment on above: Non- GFR Calc Glucose measurementOrdered B y: Gosia Delaney on 06-21-2024 Glucose [Mass/Vol] 95 mg/dL 74-106 [facility] Hematocrit Auto (Bld) [Volum e fraction]Ordered By: Gosia Delaney on 06-21-2024 Hematocrit (Bld) [Volume fraction] 43.8 % 40-54 [facility] Hemoglobin measurementOrdere d By: Gosia Delaney on 06-21-2024 Hemoglobin (Bld) [Mass/Vol] 14.9 g/dL 13.0-16.5 [facility] Immature granulocytes/100 WB C Auto (Bld)Ordered By: Gosia Delaney on 06-21-2024 Immature granulocytes/100 WBC (Bld) 0.300 % 0.0-0.9 [facility] Comment on above: IG% - Immature Granu locytes (promyelocytes, myelocytes and metamyelocytes) > 1% indicates that a LEFT SHIFT is Present. Laboratory - Chemistry and C hemistry - challengeOrdered By: Gosia Delaney on 06-21-2024 AST [Catalytic activity/Vol] 21 U/L 15-37 [facility] Lymphocytes Auto (Unsp spec) [#/Vol]Ordered By: Gosia Delaney on 06-21-2024 Lymphocytes (Bld) [#/Vol] 2.18 10*3/uL 0.83-4.5 1 [facility] Lymphocytes/100 WBC Auto (Un sp spec)Ordered By: Gosia Delaney on 06-21-2024 Lymphocytes/100 WBC (Bld) 24.9 % 19-41 [facility] MCV (mean corpuscular volume ) determinationOrdered By: Gosia Delaney on 06-21-2024 MCV (RBC) [Entitic vol] 92.0 fL 80-94 [facility] Magnesiumon 06-21-2024 Magnesium [Mass/Vol] 2.2 mg/dL Normal 1.6-2.6 [facility] Comment on above: Order Comment: Order Date: 01/13/24 Order Info: 2955-3 - GEORGE Performed By: #### L [id number] #### [facility] [address] [place], [place], [address] Magnesium measurementOrdered By: Gosia Delaney on 06-21-2024 Magnesium [Mass/Vol] 2.2 mg/dL 1.6-2.6 [facility] Mean corpuscular hemoglobin (MCH) determinationOrdered By: Gosia Delaney on 06-21-2024 MCH (RBC) [Entitic mass] 31.3 pg 27.0-32.0 [facility] Mean corpuscular hemoglobin concentration (MCHC) determinationOrdered By: Gosia Delaney on 06-21-2024 MCHC (RBC) [Mass/Vol] 34.0 g/dL 32-36 [facility] Mean platelet volume determi nationOrdered By: Gosia Delaney on 06-21-2024 Platelet mean volume (Bld) [Entitic vol] 11.0 fL 6.2-12.0 [facility] Microalb:Creat Ratio,Random URon 06-21-2024 Creatinine [Mass/Vol] 78.60 mg/dL Normal NO RAN GE EST. [facility] Comment on above: Order Comment: Order Date: 01/13/24 Order Info: 2955-3 - GEORGE Performed By: #### L [id number] #### [facility] [address] [place], [place], [address] MALB:CRE 38.8 mg/g CRE High <30 mg/g CRE [facility] Comment on above: Order Comment: Order Date: 01/13/24 Order Info: 2955-3 - GEORGE Performed By: #### L [id number] #### [facility] [address] [place], [place], [address] MICROALBUMIN,UR 30.5 mg/L Normal NO RANGE EST. [facility] Comment on above: Order Comment: Order Date: 01/13/24 Order Info: 2955-3 - GEORGE Performed By: #### L [id number] #### [facility] [address] [place], [place], [address] Monocyte percentageOrdered B y: Gosia Delaney on 06-21-2024 Monocytes/100 WBC (Bld) 7.9 % 0-10 [facility] Neutrophil percentageOrdered By: Gosia Delaney on 06-21-2024 Neutrophils/100 WBC (Bld) 63.8 % 47-70 [facility] Nucleated red blood cell per centageOrdered By: Gosia Delaney on 06-21-2024 Nucleated RBC/100 WBC (Bld) [Ratio] 0 % 0-5 [facility] Osmolality (U) [Osmolality]O rdered By: Gosia Delaney on 06-21-2024 Urine Osmolality 383 mOsm/KG >50 [facility] Comment on above: Normal Urine Referen ce Ranges Random: 50 - 1200 mOsm/kg H20 depending on fluid intake Random: >850 mOsm/kg after 12 hour fluid restriction 24 hour: ~300 - 900 mOsm/kg H2O Osmolality, Serumon 06-21-19 25 OSMOLALITY,SER 276 mOsm/KG Low 280-301 [facility] Comment on above: Order Comment: Order Date: 01/13/24 Order Info: 2955-3 - GEORGE Performed By: #### L [id number] #### [facility] [address] [place], [place], [address] Osmolality, Urineon 06-21-19 25 OSMOLALITY,UR 383 mOsm/KG Normal [facility] Comment on above: Order Comment: Order Date: 01/13/24 Order Info: 2955-3 - GEORGE Result Comment: Normal Urine Reference Ranges Random: 50 - 1200 mOsm/kg H20 depending on fluid intake Random: >850 mOsm/kg after 12 hour fluid restriction 24 hour: 300 - 900 mOsm/kg H2O Performed By: #### L [id number] #### [facility] [address] [place], [place], [address] Osmolality, serumOrdered By: Gosia Delaney on 06-21-2024 Serum Osmolality 276 mOsm/KG Low 280-301 [facility] Platelet countOrdered By: Joni Delaney on 06-21-2024 Platelets (Bld) [#/Vol] 245 10*3/uL 150-450 [facility] Potassium measurementOrdered By: Gosia Delaney on 06-21-2024 Potassium [Moles/Vol] 4.3 mmol/L 3.5-5.1 [facility] RBC Auto (Bld) [#/Vol]Ordere d By: Gosia Delaney on 06-21-2024 RBC (Bld) [#/Vol] 4.76 10*6/uL 4.6-6.2 [facility] Random urine microalbumin me asurementOrdered By: Gosia Delaney on 06-21-2024 Urine Random Microalbumin 30.5 mg/L NO RANGE EST. [facility] Serum anion gap measurementO rdered By: Gosia Delaney on 06-21-2024 Anion gap [Moles/Vol] 8 mmol/L 5-15 [facility] Serum globulin measurementOr dered By: Gosia Delaney on 06-21-2024 Globulin (S) [Mass/Vol] 3.6 g/dL 2.2-4.2 [facility] Serum or plasma alanine gibson otransferase (ALT) measurementOrdered By: Gosia Delaney on 06-21-2024 ALT [Catalytic activity/Vol] 27 U/L 16-61 [facility] Serum or plasma albumin zac urement (mass/volume)Ordered By: Gosia Delaney on 06-21-2024 Albumin [Mass/Vol] 4.1 g/dL 3.2-5.0 [facility] Serum or plasma alkaline rafa sphatase measurementOrdered By: Gosia Delaney on 06-21-2024 ALP [Catalytic activity/Vol] 74 U/L 45-117 [facility] Serum or plasma calcium azc urement (mass/volume)Ordered By: Gosia Delaney on 06-21-2024 Calcium [Mass/Vol] 9.3 mg/dL 8.5-10.1 [facility] Serum or plasma creatinine m easurement (mass/volume)Ordered By: Gosia Delaney on 06-21-2024 Creatinine [Mass/Vol] 1.23 mg/dL 0.70-1.30 [facility] Comment on above: The validity of the calculated GFR & GFRAA in patients over 70 years has not been determined. Clinical correlation is essential. Serum or plasma urea nitroge n measurement (mass/volume)Ordered By: Gosia Delaney on 06-21-2024 Urea nitrogen [Mass/Vol] 15 mg/dL 7-18 [facility] Sodium levelOrdered By: Gosia Delaney on 06-21-2024 Sodium [Moles/Vol] 132 mmol/L Low 136-145 [facility] Sodium urOrdered By: Gosia ugalde on 06-21-2024 Sodium (U) [Moles/Vol] 48 mmol/L Not Establ. [facility] TSH QnOrdered By: Gosia Delaney on 06-21-2024 Thyroid Stimulating Hormone (TSH) 2.900 uIU/mL 0.358-3.740 [facility] Thyroid Stim Hormone (TSH)on 06-21-2024 TSH 2.900 uIU/mL Normal 0.358-3.740 [facility] Comment on above: Order Comment: Order Date: 01/13/24 Order Info: 2955-3 - GEORGE Performed By: #### L [id number] #### [facility] [address] [place], [place], [id number] Total proteinOrdered By: Julia Delaney on 06-21-2024 Protein [Mass/Vol] 7.7 g/dL 6.4-8.2 [facility] Urine Sodiumon 06-21-2024 Sodium (U) [Moles/Vol] 48 mmol/L Normal Not Establ. [facility] Comment on above: Order Comment: Order Date: 01/13/24 Order Info: 2955-3 - GEORGE Performed By: #### L [id number] #### [facility] [address] [place], [address] Urine albumin/creatinine rat io for detection of microalbuminuriaOrdered By: Gosia Delaney on 06-21-2024 Urine Microalbumin/Creatinine Ratio 38.8 mg/g CRE High <30 [facility] Urine creatinine measurement (mass/volume)Ordered By: Gosia Delaney on 06-21-2024 Creatinine (U) [Mass/Vol] 78.60 mg/dL NO RANGE EST. [facility] White blood cell (WBC) count Ordered By: Gosia Delaney on 06-21-2024 WBC (Bld) [#/Vol] 8.8 10*3/uL 4.4-11.0 [facility] Osmolality, Urineon 01-19-20 24 OSMOLALITY,UR 551 mOsm/KG Normal [facility] Comment on above: Order Comment: Order Date: 01/13/24 Order Info: 2955-3 - GEORGE Result Comment: Normal Urine Reference Ranges Random: 50 - 1200 mOsm/kg H20 depending on fluid intake Random: >850 mOsm/kg after 12 hour fluid restriction 24 hour: 300 - 900 mOsm/kg H2O Performed By: #### L [id number] #### [facility] [address] [place], [place], [address] Urine Sodiumon 01-19-2024 Sodium (U) [Moles/Vol] 87 mmol/L Normal Not Establ. [facility] Comment on above: Order Comment: Order Date: 01/13/24 Order Info: 2955-3 - GEORGE Performed By: #### L [id number] #### [facility] [address] [place], [place], [address] L501.5101on 01-15-2024 GGTP 41 IU/L Normal 0-65 [facility] Comment on above: Order Comment: Order Date: 01/13/24 Order Info: 2955-3 - GEORGE Result Comment: Perf ormed at: CB - [facility] [address] [id number] Quality Control Associate: Aquilino Gómez PhD, Phone: [phone] Performed By: #### L [id number] #### [facility] [address] [place], [place], [address] Comprehensive Metabolic Prof ilon 01-14-2024 Albumin [Mass/Vol] 3.9 g/dL Normal 3.2-5.0 [facility] Comment on above: Order Comment: Order Date: 01/13/24 Order Info: 0786-1 - CMP Performed By: #### L 500.4050, L501.7300, L501.5101 #### [facility] [address] [place], [address] Albumin/Globulin [Mass ratio] 1.1 {ratio} Normal 0.9-2.4 [facility] Comment on above: Order Comment: Order Date: 01/13/24 Order Info: 0786-1 - CMP Performed By: #### L 500.4050, L501.7300, L501.5101 #### [facility] [address] [place], [address] ALK P 90 U/L Normal 45-117 [facility] Comment on above: Order Comment: Order Date: 01/13/24 Order Info: 0786-1 - CMP Performed By: #### L 500.4050, L501.7300, L501.5101 #### [facility] [address] [place], [address] ALT [Catalytic activity/Vol] 28 U/L Normal 16-61 [facility] Comment on above: Order Comment: Order Date: 01/13/24 Order Info: 0786-1 - CMP Performed By: #### L 500.4050, L501.7300, L501.5101 #### [facility] [address] [place], [address] AST [Catalytic activity/Vol] 17 U/L Normal 15-37 [facility] Comment on above: Order Comment: Order Date: 01/13/24 Order Info: 0786-1 - CMP Performed By: #### L 500.4050, L501.7300, L501.5101 #### [facility] [address] [place], [address] Bilirubin [Mass/Vol] 0.50 mg/dL Normal 0.20-1.00 [facility] Comment on above: Order Comment: Order Date: 01/13/24 Order Info: 0786-1 - CMP Result Comment: For patients on eltrombopag therapy, use of Dimension [place] TBIL is not recommended. Performed By: #### L 500.4050, L501.7300, L501.5101 #### [facility] [address] [place], [address] BUN/CRE 13.6 RATIO Normal 10-20 [facility] Comment on above: Order Comment: Order Date: 01/13/24 Order Info: 0786-1 - CMP Performed By: #### L 500.4050, L501.7300, L501.5101 #### [facility] [address] [place], [address] CA,Total 9.8 mg/dL Normal 8.5-10.1 [facility] Comment on above: Order Comment: Order Date: 01/13/24 Order Info: 0786-1 - CMP Performed By: #### L 500.4050, L501.7300, L501.5101 #### [facility] [address] [place], [address] Chloride [Moles/Vol] 100 mmol/L Normal 98-107 [facility] Comment on above: Order Comment: Order Date: 01/13/24 Order Info: 0786-1 - CMP Performed By: #### L 500.4050, L501.7300, L501.5101 #### [facility] [address] [place], [address] CO2 [Moles/Vol] 26.0 mmol/L Normal 21.0-32.0 [facility] Comment on above: Order Comment: Order Date: 01/13/24 Order Info: 0786-1 - CMP Performed By: #### L 500.4050, L501.7300, L501.5101 #### [facility] [address] [place], [address] Creatinine [Mass/Vol] 1.25 mg/dL Normal 0.70-1.30 [facility] Comment on above: Order Comment: Order Date: 01/13/24 Order Info: 0786-1 - CMP Result Comment: The validity of the calculated GFR GFRAA in patients over 70 years has not been determined. Clinical correlation is essential. Performed By: #### L 500.4050, L501.7300, L501.5101 #### [facility] [address] [place], [address] EST GFR - AA 73 mL/min Normal >60 [facility] Comment on above: Order Comment: Order Date: 01/13/24 Order Info: 0786-1 - CMP Result Comment: Afri can Italian GFR Calc Performed By: #### L 500.4050, L501.7300, L501.5101 #### [facility] [address] [place], [address] GAP 7 Normal 5-15 [facility] Comment on above: Order Comment: Order Date: 01/13/24 Order Info: 0786-1 - CMP Performed By: #### L 500.4050, L501.7300, L501.5101 #### [facility] [address] [place], [address] GFR/1.73 sq M.predicted among non-blacks MDRD (S/P/Bld) [Vol rate/Area] 61 mL/min/{1.73_m2} Normal >60 [facility] Comment on above: Order Comment: Order Date: 01/13/24 Order Info: 0786-1 - CMP Result Comment: Non- GFR Calc Performed By: #### L 500.4050, L501.7300, L501.5101 #### [facility] [address] [place], [address] Globulin (S) [Mass/Vol] 3.5 g/dL Normal 2.2-4.2 [facility] Comment on above: Order Comment: Order Date: 01/13/24 Order Info: 0786-1 - CMP Performed By: #### L 500.4050, L501.7300, L501.5101 #### [facility] [address] [place], [address] Glucose [Mass/Vol] 100 mg/dL Normal 74-106 [facility] Comment on above: Order Comment: Order Date: 01/13/24 Order Info: 0786-1 - CMP Result Comment: Fast ing Glucose result from 100 to 125 mg/dL suggests IMPAIRED HOMEOSTASIS per A.D.A. criteria. Performed By: #### L 500.4050, L501.7300, L501.5101 #### [facility] [address] [place], [address] Potassium [Moles/Vol] 3.9 mmol/L Normal 3.5-5.1 [facility] Comment on above: Order Comment: Order Date: 01/13/24 Order Info: 0786-1 - CMP Performed By: #### L 500.4050, L501.7300, L501.5101 #### [facility] [address] [place], [address] Sodium [Moles/Vol] 133 mmol/L Low 136-145 [facility] Comment on above: Order Comment: Order Date: 01/13/24 Order Info: 0786-1 - CMP Performed By: #### L 500.4050, L501.7300, L501.5101 #### [facility] [address] [place], [address] T PROT 7.4 g/dL Normal 6.4-8.2 [facility] Comment on above: Order Comment: Order Date: 01/13/24 Order Info: 0786-1 - CMP Performed By: #### L 500.4050, L501.7300, L501.5101 #### [facility] [address] [place], [address] Urea nitrogen [Mass/Vol] 17 mg/dL Normal 7-18 [facility] Comment on above: Order Comment: Order Date: 01/13/24 Order Info: 0786-1 - CMP Performed By: #### L 500.4050, L501.7300, L501.5101 #### [facility] [address] [place], [address] Osmolality, Serumon 01-14-20 24 OSMOLALITY,SER 289 mOsm/KG Normal 280-301 [facility] Comment on above: Order Comment: Order Date: 01/13/24 Order Info: 2692-2 - OS Performed By: #### L 500.4050, L501.7300, L501.5101 #### [facility] [address] [place], [address] CBC W/Diff, Automatedon 12-08 Absolute Lymph 1.85 X10 3/uL Normal 0.83-4.51 [facility] Comment on above: Order Comment: Order Date: 12/20/23 Order Info: 0184-1 - CBCD Comments: cc copy to Dr. Kayli Pool Performed By: #### L 100.0100, L500.4050, L506.0400, L500.4100, L501.9520 #### [facility] [address] [place], [address] Absolute Neut 4.5 X10 3/uL Normal 2.0-7.7 [facility] Comment on above: Order Comment: Order Date: 12/20/23 Order Info: 0184-1 - CBCD Comments: cc copy to Dr. Kayli Polo Performed By: #### L 100.0100, L500.4050, L506.0400, L500.4100, L501.9520 #### [facility] [address] [place], [address] Basophils/100 WBC (Bld) 0.7 % Normal 0-1 [facility] Comment on above: Order Comment: Order Date: 12/20/23 Order Info: 0184-1 - CBCD Comments: cc copy to Dr. Kayli Polo Performed By: #### L 100.0100, L500.4050, L506.0400, L500.4100, L501.9520 #### [facility] [address] [place], [address] Eosinophils/100 WBC (Bld) 4.1 % Normal 0-5 [facility] Comment on above: Order Comment: Order Date: 12/20/23 Order Info: 0184-1 - CBCD Comments: cc copy to Dr. Kayli Polo Performed By: #### L 100.0100, L500.4050, L506.0400, L500.4100, L501.9520 #### [facility] [address] [place], [address] Erythrocyte distribution width (RBC) [Ratio] 13.7 % Normal 11.6-14.6 [facility] Comment on above: Order Comment: Order Date: 12/20/23 Order Info: 0184-1 - CBCD Comments: cc copy to Dr. Kayli Polo Performed By: #### L 100.0100, L500.4050, L506.0400, L500.4100, L501.9520 #### [facility] [address] [place], [address] Hematocrit (Bld) [Volume fraction] 44.4 % Normal 40-54 [facility] Comment on above: Order Comment: Order Date: 12/20/23 Order Info: 0184-1 - CBCD Comments: cc copy to Dr. Kayli Polo Performed By: #### L 100.0100, L500.4050, L506.0400, L500.4100, L501.9520 #### [facility] [address] [place], [address] Hemoglobin (Bld) [Mass/Vol] 14.9 g/dL Normal 13.0-16.5 [facility] Comment on above: Order Comment: Order Date: 12/20/23 Order Info: 0184- - CBCD Comments: cc copy to Dr. Kayli Polo Performed By: #### L 100.0100, L500.4050, L506.0400, L500.4100, L501.9520 #### [facility] [address] [place], [address] IG% 0.300 Normal 0.0-0.9 [facility] Comment on above: Order Comment: Order Date: 12/20/23 Order Info: 018- - CBCD Comments: cc copy to Dr. Kayli Polo Result Comment: IG% - Immature Granulocytes (promyelocytes, myelocytes and metamyelocytes) > 1% indicates that a LEFT SHIFT is Present. Performed By: #### L 100.0100, L500.4050, L506.0400, L500.4100, L501.9520 #### [facility] [address] [place], [address] Lymphocytes/100 WBC (Bld) 25.3 % Normal 19-41 [facility] Comment on above: Order Comment: Order Date: 12/20/23 Order Info: 0184- - CBCD Comments: cc copy to Dr. Kayli Polo Performed By: #### L 100.0100, L500.4050, L506.0400, L500.4100, L501.9520 #### [facility] [address] [place], [address] MCH (RBC) [Entitic mass] 30.8 pg Normal 27.0-32.0 [facility] Comment on above: Order Comment: Order Date: 12/20/23 Order Info: 018- - CBCD Comments: cc copy to Dr. Kayli Polo Performed By: #### L 100.0100, L500.4050, L506.0400, L500.4100, L501.9520 #### [facility] [address] [place], [address] MCHC (RBC) [Mass/Vol] 33.6 g/dL Normal 32-36 [facility] Comment on above: Order Comment: Order Date: 12/20/23 Order Info: 0184-1 - CBCD Comments: cc copy to Dr. Kayli Polo Performed By: #### L 100.0100, L500.4050, L506.0400, L500.4100, L501.9520 #### [facility] [address] [place], [address] MCV (RBC) [Entitic vol] 91.9 fL Normal 80-94 [facility] Comment on above: Order Comment: Order Date: 12/20/23 Order Info: 0184-1 - CBCD Comments: cc copy to Dr. Kayli Polo Performed By: #### L 100.0100, L500.4050, L506.0400, L500.4100, L501.9520 #### [facility] [address] [place], [address] Monocytes/100 WBC (Bld) 8.5 % Normal 0-10 [facility] Comment on above: Order Comment: Order Date: 12/20/23 Order Info: 0184-1 - CBCD Comments: cc copy to Dr. Kayli Polo Performed By: #### L 100.0100, L500.4050, L506.0400, L500.4100, L501.9520 #### [facility] [address] [place], [address] Neutrophils/100 WBC (Bld) 61.1 % Normal 47-70 [facility] Comment on above: Order Comment: Order Date: 12/20/23 Order Info: 0184-1 - CBCD Comments: cc copy to Dr. Kayli Polo Performed By: #### L 100.0100, L500.4050, L506.0400, L500.4100, L501.9520 #### [facility] [address] [place], [address] Nucleated RBC (Bld) [#/Vol] 0 10*3/uL Normal 0-5 [facility] Comment on above: Order Comment: Order Date: 12/20/23 Order Info: 0184-1 - CBCD Comments: cc copy to Dr. Kayli Polo Performed By: #### L 100.0100, L500.4050, L506.0400, L500.4100, L501.9520 #### [facility] [address] [place], [address] Platelet mean volume (Bld) [Entitic vol] 10.2 fL Normal 6.2-12.0 [facility] Comment on above: Order Comment: Order Date: 12/20/23 Order Info: 0184-1 - CBCD Comments: cc copy to Dr. Kayli Polo Performed By: #### L 100.0100, L500.4050, L506.0400, L500.4100, L501.9520 #### [facility] [address] [place], [address] Platelets (Bld) [#/Vol] 269 10*3/uL Normal 150-450 [facility] Comment on above: Order Comment: Order Date: 12/20/23 Order Info: 0184-1 - CBCD Comments: cc copy to Dr. Kayli Polo Performed By: #### L 100.0100, L500.4050, L506.0400, L500.4100, L501.9520 #### [facility] [address] [place], [address] RBC (Bld) [#/Vol] 4.83 10*6/uL Normal 4.6-6.2 [facility] Comment on above: Order Comment: Order Date: 12/20/23 Order Info: 0184-1 - CBCD Comments: cc copy to Dr. Kayli Polo Performed By: #### L 100.0100, L500.4050, L506.0400, L500.4100, L501.9520 #### [facility] [address] [place], [address] RDW SD 46.7 fl High 35.1-43.9 [facility] Comment on above: Order Comment: Order Date: 12/20/23 Order Info: 0184-1 - CBCD Comments: cc copy to Dr. Kayli Polo Performed By: #### L 100.0100, L500.4050, L506.0400, L500.4100, L501.9520 #### [facility] [address] [place], [address] WBC (Bld) [#/Vol] 7.3 10*3/uL Normal 4.4-11.0 [facility] Comment on above: Order Comment: Order Date: 12/20/23 Order Info: 0184-1 - CBCD Comments: cc copy to Dr. Kayli Polo Performed By: #### L 100.0100, L500.4050, L506.0400, L500.4100, L501.9520 #### [facility] [address] [place], [address] Comprehensive Metabolic Prof [facility] 12-20-2023 Albumin [Mass/Vol] 4.0 g/dL Normal 3.2-5.0 [facility] Comment on above: Order Comment: Order Date: 12/20/23 Order Info: 0786-1 - CMP Order Info: [id number] - LIPID Comments: cc copy to Dr. Kayli Polo Order Info: 3016-3 - TSH Order Info: 3024-7 - T4F cc copy to Dr. Kayli Polo Performed By: #### L 100.0100, L500.4050, L506.0400, L500.4100, L501.9520 #### [facility] [address] [place], [address] Albumin/Globulin [Mass ratio] 1.2 {ratio} Normal 0.9-2.4 [facility] Comment on above: Order Comment: Order Date: 12/20/23 Order Info: 0786-1 - CMP Order Info: [id number] - LIPID Comments: cc copy to Dr. Kayli Polo Order Info: 3016-3 - TSH Order Info: 3023-11 T4F cc copy to Dr. Kayli Polo Performed By: #### L 100.0100, L500.4050, L506.0400, L500.4100, L501.9520 #### [facility] [address] [place], [address] ALK P 114 U/L Normal 45-117 [facility] Comment on above: Order Comment: Order Date: 12/20/23 Order Info: 785- - CMP Order Info: [id number] - LIPID Comments: cc copy to Dr. Kayli Polo Order Info: 3015-07 - TSH Order Info: 3023-11 T4F cc copy to Dr. Kayli Polo Performed By: #### L 100.0100, L500.4050, L506.0400, L500.4100, L501.9520 #### [facility] [address] [place], [address] ALT [Catalytic activity/Vol] 77 U/L High 16-61 [facility] Comment on above: Order Comment: Order Date: 12/20/23 Order Info: 785-05 - CMP Order Info: [id number] - LIPID Comments: cc copy to Dr. Kayli Polo Order Info: 3015-07 - TSH Order Info: 3023-11 T4F cc copy to Dr. Kayli Polo Performed By: #### L 100.0100, L500.4050, L506.0400, L500.4100, L501.9520 #### [facility] [address] [place], [address] AST [Catalytic activity/Vol] 46 U/L High 15-37 [facility] Comment on above: Order Comment: Order Date: 12/20/23 Order Info: 785- - CMP Order Info: [id number] - LIPID Comments: cc copy to Dr. Kayli Polo Order Info: 3015-07 - TSH Order Info: 3023-11 T4F cc copy to Dr. Kayli Polo Performed By: #### L 100.0100, L500.4050, L506.0400, L500.4100, L501.9520 #### [facility] [address] [place], [address] Bilirubin [Mass/Vol] 0.60 mg/dL Normal 0.20-1.00 [facility] Comment on above: Order Comment: Order Date: 12/20/23 Order Info: 785-05 - CMP Order Info: [id number] - LIPID Comments: cc copy to Dr. Kayli Polo Order Info: 3 - TSH Order Info: 3023-11 T4F cc copy to Dr. Kayli Polo Result Comment: For patients on eltrombopag therapy, use of Dimension [place] TBIL is not recommended. Performed By: #### L 100.0100, L500.4050, L506.0400, L500.4100, L501.9520 #### [facility] [address] [place], [address] BUN/CRE 17.8 RATIO Normal 10-20 [facility] Comment on above: Order Comment: Order Date: 12/20/23 Order Info: 785-05 - CMP Order Info: - LIPID Comments: cc copy to Dr. Kayli Polo Order Info: [id number] - TSH Order Info: 3023-11 T4F cc copy to Dr. Kayli Polo Performed By: #### L 100.0100, L500.4050, L506.0400, L500.4100, L501.9520 #### [facility] [address] [place], [address] CA,Total 9.7 mg/dL Normal 8.5-10.1 [facility] Comment on above: Order Comment: Order Date: 12/20/23 Order Info: 785-05 - CMP Order Info: [id number] - LIPID Comments: cc copy to Dr. Kayli Polo Order Info: 3 - TSH Order Info: 3023-11 T4F cc copy to Dr. Kayli Polo Performed By: #### L 100.0100, L500.4050, L506.0400, L500.4100, L501.9520 #### [facility] [address] [place], [address] Chloride [Moles/Vol] 99 mmol/L Normal 98-107 [facility] Comment on above: Order Comment: Order Date: 12/20/23 Order Info: 86-1 - CMP Order Info: [id number] - LIPID Comments: cc copy to Dr. Kayli Polo Order Info: 3 - TSH Order Info: 3023-11 T4F cc copy to Dr. Kayli Polo Performed By: #### L 100.0100, L500.4050, L506.0400, L500.4100, L501.9520 #### [facility] [address] [place], [address] CO2 [Moles/Vol] 29.0 mmol/L Normal 21.0-32.0 [facility] Comment on above: Order Comment: Order Date: 12/20/23 Order Info: 785-05 - CMP Order Info: [id number] - LIPID Comments: cc copy to Dr. Kayli Polo Order Info: 3015-07 - TSH Order Info: 3023-11 T4F cc copy to Dr. Kayli Polo Performed By: #### L 100.0100, L500.4050, L506.0400, L500.4100, L501.9520 #### [facility] [address] [place], [address] Creatinine [Mass/Vol] 1.07 mg/dL Normal 0.70-1.30 [facility] Comment on above: Order Comment: Order Date: 12/20/23 Order Info: 785- - CMP Order Info: [id number] - LIPID Comments: cc copy to Dr. Kayli Polo Order Info: 3 - TSH Order Info: 3023-11 T4F cc copy to Dr. Kayli Polo Result Comment: The validity of the calculated GFR GFRAA in patients over 70 years has not been determined. Clinical correlation is essential. Performed By: #### L 100.0100, L500.4050, L506.0400, L500.4100, L501.9520 #### [facility] [address] [place], [address] EST GFR - AA 88 mL/min Normal >60 [facility] Comment on above: Order Comment: Order Date: 12/20/23 Order Info: 785-1 - CMP Order Info: [id number] - LIPID Comments: cc copy to Dr. Kayli Polo Order Info: [id number] - TSH Order Info: 3023-11 T4F cc copy to Dr. Kayli Polo Result Comment: Afri can Italian GFR Calc Performed By: #### L 100.0100, L500.4050, L506.0400, L500.4100, L501.9520 #### [facility] [address] [place], [address] GAP 4 Low 5-15 [facility] Comment on above: Order Comment: Order Date: 12/20/23 Order Info: 785-05 - CMP Order Info: [id number] - LIPID Comments: cc copy to Dr. Kayli Polo Order Info: [id number] - TSH Order Info: 3023-11 T4F cc copy to Dr. Kayli Polo Performed By: #### L 100.0100, L500.4050, L506.0400, L500.4100, L501.9520 #### [facility] [address] [place], [address] GFR/1.73 sq M.predicted among non-blacks MDRD (S/P/Bld) [Vol rate/Area] 73 mL/min/{1.73_m2} Normal >60 [facility] Comment on above: Order Comment: Order Date: 12/20/23 Order Info: 785-1 - CMP Order Info: [id number] - LIPID Comments: cc copy to Dr. Kayli Polo Order Info: 3 - TSH Order Info: 3023-11 T4F cc copy to Dr. Kayli Polo Result Comment: Non- GFR Calc Performed By: #### L 100.0100, L500.4050, L506.0400, L500.4100, L501.9520 #### [facility] [address] [place], [address] Globulin (S) [Mass/Vol] 3.3 g/dL Normal 2.2-4.2 [facility] Comment on above: Order Comment: Order Date: 12/20/23 Order Info: 785-1 - CMP Order Info: [id number] - LIPID Comments: cc copy to Dr. Kayli Polo Order Info: [id number] - TSH Order Info: 3023-11 T4 cc copy to Dr. Kayli Polo Performed By: #### L 100.0100, L500.4050, L506.0400, L500.4100, L501.9520 #### [facility] [address] [place], [address] Glucose [Mass/Vol] 104 mg/dL Normal 74-106 [facility] Comment on above: Order Comment: Order Date: 12/20/23 Order Info: 785-05 - CMP Order Info: [id number] - LIPID Comments: cc copy to Dr. Kayli Polo Order Info: 3015-07 - TSH Order Info: 3023-[address] Kayli Polo Result Comment: Fast ing Glucose result from 100 to 125 mg/dL suggests IMPAIRED HOMEOSTASIS per A.D.A. criteria. Performed By: #### L 100.0100, L500.4050, L506.0400, L500.4100, L501.9520 #### [facility] [address] [place], [address] Potassium [Moles/Vol] 4.2 mmol/L Normal 3.5-5.1 [facility] Comment on above: Order Comment: Order Date: 12/20/23 Order Info: 07-1 - CMP Order Info: [id number] - LIPID Comments: cc copy to Dr. Kayli Polo Order Info: 3015-07 - TSH Order Info: 3023-11 T4F cc copy to Dr. Kayli Polo Performed By: #### L 100.0100, L500.4050, L506.0400, L500.4100, L501.9520 #### [facility] [address] [place], [place], [address] Sodium [Moles/Vol] 132 mmol/L Low 136-145 [facility] Comment on above: Order Comment: Order Date: 12/20/23 Order Info: 86-1 - CMP Order Info: [id number] - LIPID Comments: cc copy to Dr. Kayli Polo Order Info: 3 - TSH Order Info: 3023-11 T4F cc copy to Dr. Kayli Polo Performed By: #### L 100.0100, L500.4050, L506.0400, L500.4100, L501.9520 #### [facility] [address] [place], [place], [id number] T PROT 7.3 g/dL Normal 6.4-8.2 [facility] Comment on above: Order Comment: Order Date: 12/20/23 Order Info: 785-05 - CMP Order Info: [id number] - LIPID Comments: cc copy to Dr. Kayli Polo Order Info: 3015-07 - TSH Order Info: 3023-11 T4F cc copy to Dr. Kayli Polo Performed By: #### L 100.0100, L500.4050, L506.0400, L500.4100, L501.9520 #### [facility] [address] [place], [address] Urea nitrogen [Mass/Vol] 19 mg/dL High 7-18 [facility] Comment on above: Order Comment: Order Date: 12/20/23 Order Info: 86-1 - CMP Order Info: [id number] - LIPID Comments: cc copy to Dr. Kayli Polo Order Info: 3 - TSH Order Info: 3023-11 T4F cc copy to Dr. Kayli Polo Performed By: #### L 100.0100, L500.4050, L506.0400, L500.4100, L501.9520 #### [facility] [address] [place], [address] Lipid Profileon 12-20-2023 Cholesterol [Mass/Vol] 139 mg/dL Normal 200 [facility] Comment on above: Order Comment: Order Date: 12/20/23 Order Info: 0786-1 - CMP Order Info: [id number] - LIPID Comments: cc copy to Dr. Kayli Polo Order Info: 3 - TSH Order Info: 3023-11 T4F cc copy to Dr. Kayli Polo Result Comment: <200 mg/dL Desirable 200-240 mg/dL Borderline >240 mg/dL High Risk Performed By: #### L 100.0100, L500.4050, L506.0400, L500.4100, L501.9520 #### [facility] [address] [place], [address] Cholesterol in HDL [Mass/Vol] 48 mg/dL Normal [facility] Comment on above: Order Comment: Order Date: 12/20/23 Order Info: 785-05 - CMP Order Info: [id number] - LIPID Comments: cc copy to Dr. Kayli Polo Order Info: [id number] - TSH Order Info: 3023-11 T4F cc copy to Dr. Kayli Polo Result Comment: The drugs N-Acetylcysteine and Metamizole may falsely depress this assay. Reference Range HDL <40 mg/dL Low HDL Cholesterol HDL >or= 60 mg/dL High HDL Cholesterol Performed By: #### L 100.0100, L500.4050, L506.0400, L500.4100, L501.9520 #### [facility] [address] [place], [address] Cholesterol in LDL [Mass/Vol] 62 mg/dL Normal 0-130 [facility] Comment on above: Order Comment: Order Date: 12/20/23 Order Info: 0786-1 - CMP Order Info: [id number] - LIPID Comments: cc copy to Dr. Kayli Polo Order Info: 3 - TSH Order Info: 3023-11 T4F cc copy to Dr. Kayli Polo Performed By: #### L 100.0100, L500.4050, L506.0400, L500.4100, L501.9520 #### [facility] [address] [place], [address] Cholesterol in VLDL [Mass/Vol] 29 mg/dL Normal 5-40 [facility] Comment on above: Order Comment: Order Date: 12/20/23 Order Info: [id number] - CMP Order Info: [id number] - LIPID Comments: cc copy to Dr. Kayli Ploo Order Info: [id number] - TSH Order Info: [id number] T4F cc copy to Dr. Kayli Polo Performed By: #### L 100.0100, L500.4050, L506.0400, L500.4100, [id number] #### [facility] [address] [place], [address] Triglyceride [Mass/Vol] 147 mg/dL Normal [facility] Comment on above: Order Comment: Order Date: 12/20/23 Order Info: [id number] - CMP Order Info: [id number] - LIPID Comments: cc copy to Dr. [...] L 100.0100, L500.4050, L506.0400, L500.4100, [id number] #### [facility] [address] [place], [address] T4 Free Directon 12-20-2023 T4 FREE DIRECT 1.17 ng/dL Normal 0.76-1.46 [facility] Comment on above: Order Comment: Order Date: 12/20/23 Order Info: [id number] - CMP Order Info: [id number] - LIPID Comments: cc copy to Dr. Kayli Polo Order Info: [id number] - TSH Order Info: [id number] - T4F cc copy to Dr. Kayli Polo Performed By: #### L 100.0100, L500.4050, L506.0400, L500.4100, L501.9520 #### [facility] [address] [place], [place], [address] Thyroid Stim Hormone (TSH)on 12-20-2023 TSH 2.22 uIU/mL Normal 0.358-3.74 [facility] Comment on above: Order Comment: Order Date: 12/20/23 Order Info: [id number] - CMP Order Info: [id number] - LIPID Comments: cc copy to Dr. Kayli Polo Order Info: [id number] - TSH Order Info: [id number] - T4F cc copy to Dr. Kayli Polo Performed By: #### L 100.0100, L500.4050, L506.0400, L500.4100, [id number] #### [facility] [address] [place], [place], [address] CNOVon 08-30-2023 CNOV Office Visit (MICKEY 3) FAHAD DE LEON JR ([id number]) 1955 M Date Time Provider Department 08/30/23 [...] well.. Mu (more content not included)... Normal [facility] CNOVon 08-25-2023 CNOV Office Visit (GENSWS ) REAGAN SIMSFAHAD ([id number]) 1955 M Date Time Provider Department 08/25/23 [...] on gallbladder ultrasound. He had presented to [facility] ED with right lower rib pain. [...] mouth once (more content not included)... Normal [facility] Absolute lymphocyte countOrd ered By: Gosia Delaney on 07-06-2023 Lymphocytes Auto (Unsp spec) [#/Vol] 1.85 10*3/uL 0.83-4.51 [facility] Automated lymphocyte count a s percentage of total leukocytesOrdered By: Gosia Delaney on 07-06-2023 Lymphocytes/100 WBC Auto (Unsp spec) 27.5 % 19-41 [facility] Basophil percentageOrdered B y: Gosia Delaney on 07-06-2023 Basophils/100 WBC (Bld) 0.4 % 0-1 [facility] Bilirubin [Mass/Vol] 0.60 mg/dL 0.20-1.00 [facility] Comment on above: For patients on eltr ombopag therapy, use of Dimension [place] TBIL is not recommended. Chloride [Moles/Vol] 102 mmol/L 98-107 [facility] Eosinophils/100 WBC (Bld) 5.3 % 0-5 [facility] Glucose [Mass/Vol] 111 mg/dL 74-106 [facility] Comment on above: Fasting Glucose resu lt from 100 to 125 mg/dL suggests IMPAIRED HOMEOSTASIS per A.D.A. criteria. Hemoglobin (Bld) [Mass/Vol] 15.1 g/dL 13.0-16.5 [facility] Monocytes/100 WBC (Bld) 8.6 % 0-10 [facility] Neutrophils (Bld) [#/Vol] 3.9 10*3/uL 2.0-7.7 [facility] Neutrophils/100 WBC (Bld) 57.9 % 47-70 [facility] Potassium [Moles/Vol] 4.5 mmol/L 3.5-5.1 [facility] Protein [Mass/Vol] 7.7 g/dL 6.4-8.2 [facility] Sodium [Moles/Vol] 134 mmol/L 136-145 [facility] WBC (Bld) [#/Vol] 6.7 10*3/uL 4.4-11.0 [facility] Determination of erythrocyte mean corpuscular volume (MCV)Ordered By: Gosia Delaney on 07-06-2023 MCV (RBC) [Entitic vol] 91.6 fL 80-94 [facility] Erythrocyte distribution wid th ratioOrdered By: Gosia Delaney on 07-06-2023 Erythrocyte distribution width (RBC) [Ratio] 13.1 % 11.6-14.6 [facility] Erythrocyte distribution wid th standard deviationOrdered By: Gosia Delaney on 07-06-2023 Erythrocyte distribution width (RBC) [Entitic vol] 44.2 fL 35.1-43.9 [facility] Hematocrit Auto (Bld) [Volum e fraction]Ordered By: Gosia Delaney on 07-06-2023 Hematocrit (Bld) [Volume fraction] 46.0 % 40-54 [facility] Immature granulocytes/100 WB C Auto (Bld)Ordered By: Gosia Delaney on 07-06-2023 Immature granulocytes/100 WBC (Bld) 0.300 % 0.0-0.9 [facility] Comment on above: IG% - Immature Granu locytes (promyelocytes, myelocytes and metamyelocytes) > 1% indicates that a LEFT SHIFT is Present. Laboratory - Chemistry and C hemistry - challengeOrdered By: Gosia Delaney on 07-06-2023 Albumin/Globulin [Mass ratio] 1.1 {ratio} 0.9-2.4 [facility] ALP [Catalytic activity/Vol] 103 U/L 45-117 [facility] ALT [Catalytic activity/Vol] 45 U/L 16-61 [facility] Amylase [Catalytic activity/Vol] 92 U/L 15-85 [facility] CO2 [Moles/Vol] 28.0 mmol/L 21.0-32.0 [facility] Globulin (S) [Mass/Vol] 3.6 g/dL 2.2-4.2 [facility] Lipase [Catalytic activity/Vol] 21 U/L 13-75 [facility] Comment on above: Please note:LIPASE r evised reference range effective 22. New Lipase methodology. Expected to produce lower values than the previous assay method. NEW Reference Range: 13 - 75 U/L Urea nitrogen/Creatinine [Mass ratio] 12.9 mg/mg 10-20 [facility] - Hematology and Cell countsOrdered By: Gosia Delaney on 07-06-2023 MCH (RBC) [Entitic mass] 30.1 pg 27.0-32.0 [facility] MCHC (RBC) [Mass/Vol] 32.8 g/dL 32-36 [facility] Nucleated RBC/100 WBC (Bld) [Ratio] 0 % 0-5 [facility] Platelet mean volume (Bld) [Entitic vol] 11.0 fL 6.2-12.0 [facility] Platelets (Bld) [#/Vol] 243 10*3/uL 150-450 [facility] No Panel InformationOrdered By: Gosia Delaney on 07-06-2023 C-Reactive Protein Extended Range 6.67 mg/L 0.0-3.0 [facility] Comment on above: C-Reactive Protein ( CRP) provides useful information for thediagnosis, therapy and monitoring of inflammatory processesand associated diseases. For the evaluation of Relative Riskfor Cardiovascular Disease, a High Sensitivity CRP (HSCRP)should be ordered. Estimated GFR (MDRD) Amer 69 mL/min >60 [facility] Comment on above: GFR Calc Estimated GFR (MDRD) Non-Af Amer 57 mL/min >60 [facility] Comment on above: Non- GFR Calc RBC Auto (Bld) [#/Vol]Ordere d By: Gosia Delaney on 07-06-2023 RBC (Bld) [#/Vol] 5.02 10*6/uL 4.6-6.2 [facility] Serum or plasma calcium zac urement (mass/volume)Ordered By: Gosia Delaney on 07-06-2023 Calcium [Mass/Vol] 9.7 mg/dL 8.5-10.1 [facility] Serum or plasma creatinine m easurement (mass/volume)Ordered By: Gosia Delaney on 07-06-2023 Creatinine [Mass/Vol] 1.32 mg/dL 0.70-1.30 [facility] Comment on above: The validity of the calculated GFR & GFRAA in patients over 70 years has not been determined. Clinical correlation is essential. Serum or plasma urea nitroge n measurement (mass/volume)Ordered By: Gosia Delaney on 07-06-2023 Urea nitrogen [Mass/Vol] 17 mg/dL 7-18 [facility] Thin prep Papanicolaou smear with manual screeningOrdered By: Gosia Delaney on 07-06-2023 Thin prep Papanicolaou smear with manual screening 4.1 g/dL 3.2-5.0 [facility] Thin prep Papanicolaou smear with manual screening 21 U/L 15-37 [facility] Thin prep Papanicolaou smear with manual screening 4 5-15 [facility] Absolute lymphocyte countOrd ered By: Lionel Ocasio on 07-03-2023 Lymphocytes Auto (Unsp spec) [#/Vol] 1.38 10*3/uL 0.83-4.51 [facility] Automated lymphocyte count a s percentage of total leukocytesOrdered By: Lionel Ocasio on 07-03-2023 Lymphocytes/100 WBC Auto (Unsp spec) 19.8 % 19-41 [facility] Basophil percentageOrdered B y: Lionel Ocasio on 07-03-2023 Basophils/100 WBC (Bld) 0.4 % 0-1 [facility] Bilirubin [Mass/Vol] 0.50 mg/dL 0.20-1.00 [facility] Comment on above: For patients on eltr ombopag therapy, use of Dimension [place] TBIL is not recommended. Chloride [Moles/Vol] 103 mmol/L 98-107 [facility] Eosinophils/100 WBC (Bld) 4.6 % 0-5 [facility] Glucose [Mass/Vol] 105 mg/dL 74-106 [facility] Comment on above: Fasting Glucose resu lt from 100 to 125 mg/dL suggests IMPAIRED HOMEOSTASIS per A.D.A. criteria. Hemoglobin (Bld) [Mass/Vol] 14.4 g/dL 13.0-16.5 [facility] Monocytes/100 WBC (Bld) 7.2 % 0-10 [facility] Neutrophils (Bld) [#/Vol] 4.7 10*3/uL 2.0-7.7 [facility] Neutrophils/100 WBC (Bld) 67.7 % 47-70 [facility] Potassium [Moles/Vol] 4.1 mmol/L 3.5-5.1 [facility] Protein [Mass/Vol] 6.7 g/dL 6.4-8.2 [facility] Sodium [Moles/Vol] 135 mmol/L 136-145 [facility] WBC (Bld) [#/Vol] 7.0 10*3/uL 4.4-11.0 [facility] Determination of erythrocyte mean corpuscular volume (MCV)Ordered By: Lionel Ocasio on 07-03-2023 MCV (RBC) [Entitic vol] 91.2 fL 80-94 [facility] Direct bilirubinOrdered By: Lionel Ocasio on 07-03-2023 Bilirubin.direct [Mass/Vol] 0.21 mg/dL 0.00-0.30 [facility] Erythrocyte distribution wid th ratioOrdered By: Lionel Ocasio on 07-03-2023 Erythrocyte distribution width (RBC) [Ratio] 12.8 % 11.6-14.6 [facility] Erythrocyte distribution wid th standard deviationOrdered By: Lionel Ocasio on 07-03-2023 Erythrocyte distribution width (RBC) [Entitic vol] 42.8 fL 35.1-43.9 [facility] Hematocrit Auto (Bld) [Volum e fraction]Ordered By: Lionel Ocasio on 07-03-2023 Hematocrit (Bld) [Volume fraction] 43.4 % 40-54 [facility] Immature granulocytes/100 WB C Auto (Bld)Ordered By: Lionel Ocasio on 07-03-2023 Immature granulocytes/100 WBC (Bld) 0.300 % 0.0-0.9 [facility] Comment on above: IG% - Immature Granu locytes (promyelocytes, myelocytes and metamyelocytes) > 1% indicates that a LEFT SHIFT is Present. Laboratory - Chemistry and C hemistry - challengeOrdered By: Lionel Ocasio on 07-03-2023 ALP [Catalytic activity/Vol] 106 U/L 45-117 [facility] ALT [Catalytic activity/Vol] 94 U/L 16-61 [facility] CO2 [Moles/Vol] 28.0 mmol/L 21.0-32.0 [facility] Globulin (S) [Mass/Vol] 3.0 g/dL 2.2-4.2 [facility] Urea nitrogen/Creatinine [Mass ratio] 16.1 mg/mg 10-20 [facility] - Hematology and Cell countsOrdered By: Lionel Ocasio on 07-03-2023 MCH (RBC) [Entitic mass] 30.3 pg 27.0-32.0 [facility] MCHC (RBC) [Mass/Vol] 33.2 g/dL 32-36 [facility] Nucleated RBC/100 WBC (Bld) [Ratio] 0 % 0-5 [facility] Platelet mean volume (Bld) [Entitic vol] 11.3 fL 6.2-12.0 [facility] Platelets (Bld) [#/Vol] 208 10*3/uL 150-450 [facility] No Panel InformationOrdered By: Lionel Ocasio on 07-03-2023 D-Dimer Quantitative (PE/DVT) 0.89 FEU/ug/m 0.27-0.49 [facility] Comment on above: D-Dimer ELEVATED (>0 .49): Additional studies and clinicalassessments are indicated to conclude diagnosis of:Deep Vein Thrombosis (DVT) or Pulmonary Embolism (PE) Estimated Creatinine Clearance Calc 45.63 ml/min [facility] Estimated GFR (MDRD) Amer 79 mL/min >60 [facility] Comment on above: GFR Calc Estimated GFR (MDRD) Non-Af Amer 65 mL/min >60 [facility] Comment on above: Non- GFR Calc Troponin I High Sensitivity 6 pg/mL 3.0-78.0 [facility] Comment on above: Please Note: New Angela t Units and Gender Specific Reference Ranges. For more information see Policy Stat Procedure [place] High Sensitivity Troponin (TNIH) and attachments. RBC Auto (Bld) [#/Vol]Ordere d By: Lionel Ocasio on 07-03-2023 RBC (Bld) [#/Vol] 4.76 10*6/uL 4.6-6.2 [facility] Serum or plasma calcium zac urement (mass/volume)Ordered By: Lionel Ocasio on 07-03-2023 Calcium [Mass/Vol] 9.1 mg/dL 8.5-10.1 [facility] Serum or plasma creatinine m easurement (mass/volume)Ordered By: Lionel Ocasio on 07-03-2023 Creatinine [Mass/Vol] 1.18 mg/dL 0.70-1.30 [facility] Comment on above: The validity of the calculated GFR & GFRAA in patients over 70 years has not been determined. Clinical correlation is essential. Serum or plasma urea nitroge n measurement (mass/volume)Ordered By: Lionel Ocasio on 07-03-2023 Urea nitrogen [Mass/Vol] 19 mg/dL 7-18 [facility] Thin prep Papanicolaou smear with manual screeningOrdered By: Lionel Ocasio on 07-03-2023 Thin prep Papanicolaou smear with manual screening 3.7 g/dL 3.2-5.0 [facility] Thin prep Papanicolaou smear with manual screening 97 U/L 15-37 [facility] Thin prep Papanicolaou smear with manual screening 4 5-15 [facility] Basophil percentageOrdered B y: Gosia Delaney on 04-12-2023 Bilirubin [Mass/Vol] 0.50 mg/dL 0.20-1.00 [facility] Comment on above: For patients on eltr ombopag therapy, use of Dimension [place] TBIL is not recommended. Chloride [Moles/Vol] 100 mmol/L 98-107 [facility] Cholesterol [Mass/Vol] 175 mg/dL <200 [facility] Comment on above: <200 mg/dL Desirable 200-240 mg/dL Borderline >240 mg/dL High Risk Glucose [Mass/Vol] 111 mg/dL 74-106 [facility] Comment on above: Fasting Glucose resu lt from 100 to 125 mg/dL suggests IMPAIRED HOMEOSTASIS per A.D.A. criteria. Potassium [Moles/Vol] 4.1 mmol/L 3.5-5.1 [facility] Protein [Mass/Vol] 7.3 g/dL 6.4-8.2 [facility] Sodium [Moles/Vol] 135 mmol/L 136-145 [facility] Triglyceride [Mass/Vol] 263 mg/dL <199 [facility] Comment on above: The drugs N-Acetylcy steine and Metamizole may falsely depress this assay.Serum Triglycerides Reference Interval Normal <150 mg/dL Borderline high 150 - 199 mg/dL High 200 - 499 mg/dL Very High > or = 500 mg/dL Cholesterol in LDL Direct as say [Mass/Vol]Ordered By: Gosia Delaney on 04-12-2023 Cholesterol in LDL [Mass/Vol] 99 mg/dL 0-99 [facility] Comment on above: Performed at: [address] [id number] Director: Aquilino Gómez PhD, Phone: [phone] Laboratory - Chemistry and C hemistry - challengeOrdered By: Gosia Delaney on 04-12-2023 ALP [Catalytic activity/Vol] 82 U/L 45-117 [facility] ALT [Catalytic activity/Vol] 37 U/L 16-61 [facility] Amylase [Catalytic activity/Vol] 361 U/L 15-85 [facility] CO2 [Moles/Vol] 24.0 mmol/L 21.0-32.0 [facility] Globulin (S) [Mass/Vol] 3.7 g/dL 2.2-4.2 [facility] Urea nitrogen/Creatinine [Mass ratio] 10.4 mg/mg 10-20 [facility] - Miscellaneous t estsOrdered By: Gosia Delaney on 04-12-2023 Service comment (Unsp spec) [Interp] TNP [facility] Comment on above: Test not performed No Panel InformationOrdered By: Gosia Delaney on 04-12-2023 Estimated GFR (MDRD) Amer 68 mL/min >60 [facility] Comment on above: GFR Calc Estimated GFR (MDRD) Non-Af Amer 56 mL/min >60 [facility] Comment on above: Non- GFR Calc Serum or plasma albumin zac urement (mass/volume)Ordered By: Gosia Delaney on 04-12-2023 Albumin [Mass/Vol] 3.6 g/dL 3.2-5.0 [facility] Serum or plasma albumin/glob ulin mass ratioOrdered By: Gosia Delaney on 04-12-2023 Albumin/Globulin [Mass ratio] 1.0 {ratio} 0.9-2.4 [facility] Serum or plasma calcium zac urement (mass/volume)Ordered By: Gosia Delaney on 04-12-2023 Calcium [Mass/Vol] 9.4 mg/dL 8.5-10.1 [facility] Serum or plasma cholesterol in HDL measurement (mass/volume)Ordered By: Gosia Delaney on 04-12-2023 Cholesterol in HDL [Mass/Vol] 47 mg/dL >40 [facility] Comment on above: The drugs N-Acetylcy steine and Metamizole may falsely depress this assay. Reference Range HDL <40 mg/dL Low HDL Cholesterol HDL >or= 60 mg/dL High HDL Cholesterol Serum or plasma cholesterol in VLDL measurement (mass/volume)Ordered By: Gosia Delaney on 04-12-2023 Cholesterol in VLDL [Mass/Vol] 53 mg/dL 5-40 [facility] Serum or plasma creatinine m easurement (mass/volume)Ordered By: Gosia Delaney on 04-12-2023 Creatinine [Mass/Vol] 1.34 mg/dL 0.70-1.30 [facility] Comment on above: The validity of the calculated GFR & GFRAA in patients over 70 years has not been determined. Clinical correlation is essential. Serum or plasma low density lipoprotein (LDL) cholesterol measurement (mass/volume)Ordered By: Gosia Delaney on 04-12-2023 Cholesterol in LDL [Mass/Vol] 75 mg/dL 0-130 [facility] Serum or plasma urea nitroge n measurement (mass/volume)Ordered By: Gosia Delaney on 04-12-2023 Urea nitrogen [Mass/Vol] 14 mg/dL 7-18 [facility] Thin prep Papanicolaou smear with manual screeningOrdered By: Gosia Delaney on 04-12-2023 Thin prep Papanicolaou smear with manual screening 24 U/L 15-37 [facility] Thin prep Papanicolaou smear with manual screening 11 5-15 [facility] Basophil percentageOrdered B y: Gosia Delaney on 04-05-2023 Bilirubin [Mass/Vol] 0.60 mg/dL 0.20-1.00 [facility] Comment on above: For patients on eltr ombopag therapy, use of Dimension [place] TBIL is not recommended. Chloride [Moles/Vol] 102 mmol/L 98-107 [facility] Glucose [Mass/Vol] 105 mg/dL 74-106 [facility] Comment on above: Fasting Glucose resu lt from 100 to 125 mg/dL suggests IMPAIRED HOMEOSTASIS per A.D.A. criteria. Potassium [Moles/Vol] 4.3 mmol/L 3.5-5.1 [facility] Protein [Mass/Vol] 7.3 g/dL 6.4-8.2 [facility] Sodium [Moles/Vol] 137 mmol/L 136-145 [facility] Laboratory - Chemistry and C hemistry - challengeOrdered By: Gosia Delaney on 04-05-2023 ALP [Catalytic activity/Vol] 122 U/L 45-117 [facility] ALT [Catalytic activity/Vol] 113 U/L 16-61 [facility] CO2 [Moles/Vol] 28.0 mmol/L 21.0-32.0 [facility] Globulin (S) [Mass/Vol] 3.9 g/dL 2.2-4.2 [facility] Urea nitrogen/Creatinine [Mass ratio] 6.9 mg/mg 10-20 [facility] No Panel InformationOrdered By: Gosia Delaney on 04-05-2023 Estimated GFR (MDRD) Amer 70 mL/min >60 [facility] Comment on above: GFR Calc Estimated GFR (MDRD) Non-Af Amer 58 mL/min >60 [facility] Comment on above: Non- GFR Calc Serum or plasma albumin zac urement (mass/volume)Ordered By: Gosia Delaney on 04-05-2023 Albumin [Mass/Vol] 3.4 g/dL 3.2-5.0 [facility] Serum or plasma albumin/glob ulin mass ratioOrdered By: Gosia Delaney on 04-05-2023 Albumin/Globulin [Mass ratio] 0.9 {ratio} 0.9-2.4 [facility] Serum or plasma calcium zac urement (mass/volume)Ordered By: Gosia Delaney on 04-05-2023 Calcium [Mass/Vol] 9.1 mg/dL 8.5-10.1 [facility] Serum or plasma creatinine m easurement (mass/volume)Ordered By: Gosia Delaney on 04-05-2023 Creatinine [Mass/Vol] 1.31 mg/dL 0.70-1.30 [facility] Comment on above: The validity of the calculated GFR & GFRAA in patients over 70 years has not been determined. Clinical correlation is essential. Serum or plasma urea nitroge n measurement (mass/volume)Ordered By: Gosia Delaney on 04-05-2023 Urea nitrogen [Mass/Vol] 9 mg/dL 7-18 [facility] Thin prep Papanicolaou smear with manual screeningOrdered By: Gosia Delaney on 04-05-2023 Thin prep Papanicolaou smear with manual screening 45 U/L 15-37 [facility] Thin prep Papanicolaou smear with manual screening 7 5-15 [facility] Absolute lymphocyte countOrd ered By: Gosia Rhett on 03-29-2023 Lymphocytes Auto (Unsp spec) [#/Vol] 1.47 10*3/uL 0.83-4.51 [facility] Basophil percentageOrdered B y: Gosiabeata Delaney on 03-29-2023 Basophils/100 WBC (Bld) 0.5 % 0-1 [facility] Bilirubin [Mass/Vol] 1.90 mg/dL 0.20-1.00 [facility] Comment on above: For patients on eltr ombopag therapy, use of Dimension [place] TBIL is not recommended. Chloride [Moles/Vol] 95 mmol/L 98-107 [facility] Eosinophils/100 WBC (Bld) 1.1 % 0-5 [facility] Glucose [Mass/Vol] 129 mg/dL 74-106 [facility] Comment on above: Fasting Glucose resu lt greater than or equal to 126 mg/dL suggests DIABETES MELLITUS per A.D.A. criteria. Neutrophils (Bld) [#/Vol] 4.4 10*3/uL 2.0-7.7 [facility] Neutrophils/100 WBC (Bld) 69.4 % 47-70 [facility] Potassium [Moles/Vol] 4.1 mmol/L 3.5-5.1 [facility] Comment on above: Slight Hemolysis, Re sult may be falsely increased. Protein [Mass/Vol] 6.9 g/dL 6.4-8.2 [facility] Sodium [Moles/Vol] 129 mmol/L 136-145 [facility] WBC (Bld) [#/Vol] 6.3 10*3/uL 4.4-11.0 [facility] Blood erythrocytes count (nu mber/volume)Ordered By: Gosia Delaney on 03-29-2023 RBC (Bld) [#/Vol] 4.55 10*6/uL 4.6-6.2 [facility] Blood hemoglobin measurement (mass/volume)Ordered By: Gosia Delaney on 03-29-2023 Hemoglobin (Bld) [Mass/Vol] 14.7 g/dL 13.0-16.5 [facility] Blood lymphocytes/100 leukoc ytesOrdered By: Gosia Delaney on 03-29-2023 Lymphocytes/100 WBC (Bld) 23.2 % 19-41 [facility] Blood monocytes/100 leukocyt esOrdered By: Gosia Delaney on 03-29-2023 Monocytes/100 WBC (Bld) 5.5 % 0-10 [facility] Blood platelet mean volumeOr dered By: Gosia Dealney on 03-29-2023 Platelet mean volume (Bld) [Entitic vol] 11.2 fL 6.2-12.0 [facility] Determination of erythrocyte mean corpuscular volume (MCV)Ordered By: Gosia Delaney on 03-29-2023 MCV (RBC) [Entitic vol] 94.3 fL 80-94 [facility] Erythrocyte sedimentation ra teOrdered By: Gosia Delaney on 03-29-2023 ESR (Bld) [Velocity] mm/h 0-20 [facility] Hematocrit Auto (Bld) [Volum e fraction]Ordered By: Gosia Delaney on 03-29-2023 Hematocrit (Bld) [Volume fraction] 42.9 % 40-54 [facility] - Chemistry and C hemistry - challengeOrdered By: Gosia Delaney on 03-29-2023 ALP [Catalytic activity/Vol] 181 U/L 45-117 [facility] ALT [Catalytic activity/Vol] 491 U/L 16-61 [facility] CO2 [Moles/Vol] 21.0 mmol/L 21.0-32.0 [facility] Globulin (S) [Mass/Vol] 3.2 g/dL 2.2-4.2 [facility] Lipase [Catalytic activity/Vol] 30 U/L 13-75 [facility] Comment on above: Please note:LIPASE r evised reference range effective 22. New Lipase methodology. Expected to produce lower values than the previous assay method. NEW Reference Range: 13 - 75 U/L Magnesium [Mass/Vol] 2.2 mg/dL 1.6-2.6 [facility] Comment on above: Slight Hemolysis, Re sult may be falsely increased. Urea nitrogen/Creatinine [Mass ratio] 13.5 mg/mg 10-20 [facility] - Hematology and Cell countsOrdered By: Gosia Delaney on 03-29-2023 Erythrocyte distribution width (RBC) [Entitic vol] 47.6 fL 35.1-43.9 [facility] Erythrocyte distribution width (RBC) [Ratio] 13.6 % 11.6-14.6 [facility] Immature granulocytes/100 WBC (Bld) 0.300 % 0.0-0.9 [facility] Comment on above: IG% - Immature Granu locytes (promyelocytes, myelocytes and metamyelocytes) > 1% indicates that a LEFT SHIFT is Present. MCH (RBC) [Entitic mass] 32.3 pg 27.0-32.0 [facility] Nucleated RBC/100 WBC (Bld) [Ratio] 0 % 0-5 [facility] MCHC Auto (RBC) [Mass/Vol]Or dered By: Gosia Delaney on 03-29-2023 MCHC (RBC) [Mass/Vol] 34.3 g/dL 32-36 [facility] No Panel InformationOrdered By: Gosia Delaney on 03-29-2023 Estimated GFR (MDRD) Amer 61 mL/min >60 [facility] Comment on above: GFR Calc Estimated GFR (MDRD) Non-Af Amer 50 mL/min >60 [facility] Comment on above: Non- GFR Calc Platelets bldOrdered By: Julia Delaney on 03-29-2023 Platelets (Bld) [#/Vol] 160 10*3/uL 150-450 [facility] Serum or plasma C reactive p rotein measurement (mass/volume)Ordered By: Gosia Delaney on 03-29-2023 CRP [Mass/Vol] mg/L 0.0-3.0 [facility] Comment on above: C-Reactive Protein ( CRP) provides useful information for thediagnosis, therapy and monitoring of inflammatory processesand associated diseases. For the evaluation of Relative Riskfor Cardiovascular Disease, a High Sensitivity CRP (HSCRP)should be ordered. Serum or plasma albumin zac urement (mass/volume)Ordered By: Gosia Delaney on 03-29-2023 Albumin [Mass/Vol] 3.7 g/dL 3.2-5.0 [facility] Serum or plasma albumin/glob ulin mass ratioOrdered By: Gosia Delaney on 03-29-2023 Albumin/Globulin [Mass ratio] 1.2 {ratio} 0.9-2.4 [facility] Serum or plasma calcium zac urement (mass/volume)Ordered By: Gosia Delaney on 03-29-2023 Calcium [Mass/Vol] 8.1 mg/dL 8.5-10.1 [facility] Serum or plasma creatinine m easurement (mass/volume)Ordered By: Gosia Delaney on 03-29-2023 Creatinine [Mass/Vol] 1.48 mg/dL 0.70-1.30 [facility] Comment on above: The validity of the calculated GFR & GFRAA in patients over 70 years has not been determined. Clinical correlation is essential. Serum or plasma urea nitroge n measurement (mass/volume)Ordered By: Gosia Delaney on 03-29-2023 Urea nitrogen [Mass/Vol] 20 mg/dL 7-18 [facility] Thin prep Papanicolaou smear with manual screeningOrdered By: Gosia Delaney on 03-29-2023 Thin prep Papanicolaou smear with manual screening 757 U/L 15-37 [facility] Comment on above: Slight Hemolysis, Re sult may be falsely increased. Thin prep Papanicolaou smear with manual screening 13 5-15 [facility] Basophil percentageOrdered B y: Gosia Delaney on 12-04-2022 Bilirubin [Mass/Vol] 0.50 mg/dL 0.20-1.00 [facility] Comment on above: For patients on eltr ombopag therapy, use of [place] TBIL is not recommended. Chloride [Moles/Vol] 103 mmol/L 98-107 [facility] Cholesterol [Mass/Vol] 167 mg/dL <200 [facility] Comment on above: <200 mg/dL Desirable 200-240 mg/dL Borderline >240 mg/dL High Risk Glucose [Mass/Vol] 85 mg/dL 74-106 [facility] Potassium [Moles/Vol] 3.7 mmol/L 3.5-5.1 [facility] Protein [Mass/Vol] 7.3 g/dL 6.4-8.2 [facility] Sodium [Moles/Vol] 138 mmol/L 136-145 [facility] Triglyceride [Mass/Vol] 335 mg/dL <199 [facility] Comment on above: The drugs N-Acetylcy steine and Metamizole may falsely depress this assay.Serum Triglycerides Reference Interval Normal <150 mg/dL Borderline high 150 - 199 mg/dL High 200 - 499 mg/dL Very High > or = 500 mg/dL Laboratory - Chemistry and C hemistry - challengeOrdered By: Gosia Dealney on 12-04-2022 ALP [Catalytic activity/Vol] 109 U/L 45-117 [facility] ALT [Catalytic activity/Vol] 46 U/L 16-61 [facility] CO2 [Moles/Vol] 27.0 mmol/L 21.0-32.0 [facility] Globulin (S) [Mass/Vol] 3.6 g/dL 2.2-4.2 [facility] Urea nitrogen/Creatinine [Mass ratio] 7.0 mg/mg 10-20 [facility] No Panel InformationOrdered By: Gosia Delaney on 12-04-2022 Estimated GFR (MDRD) Amer 113 mL/min >60 [facility] Comment on above: GFR Calc Estimated GFR (MDRD) Non-Af Amer 93 mL/min >60 [facility] Comment on above: Non- GFR Calc Prostate Specific Antigen Screen 0.46 ng/mL 0.00-4.00 [facility] Comment on above: This test was perfor med using the TPSA assay method for theDi[employer]sv[employer] chemistry system. Values obtained with differentassay methods cannot be used interchangably.When changing PSA assays in the course of monitoring apatient, additional sequential testing should be carriedout to confirm baseline values. Thyroid Stimulating Hormone (TSH) 1.60 uIU/mL 0.358-3.74 [facility] Urine Microalbumin/Creatinine Ratio 15.5 mg/g CRE <30 [facility] Serum or plasma albumin zac urement (mass/volume)Ordered By: Gosia Delaney on 12-04-2022 Albumin [Mass/Vol] 3.7 g/dL 3.2-5.0 [facility] Serum or plasma albumin/glob ulin mass ratioOrdered By: Gosia Delaney on 12-04-2022 Albumin/Globulin [Mass ratio] 1.0 {ratio} 0.9-2.4 [facility] Serum or plasma calcium zac urement (mass/volume)Ordered By: Gosia Delaney on 12-04-2022 Calcium [Mass/Vol] 8.7 mg/dL 8.5-10.1 [facility] Serum or plasma cholesterol in HDL measurement (mass/volume)Ordered By: Gosia Delaney on 12-04-2022 Cholesterol in HDL [Mass/Vol] 55 mg/dL >40 [facility] Comment on above: The drugs N-Acetylcy steine and Metamizole may falsely depress this assay. Reference Range HDL <40 mg/dL Low HDL Cholesterol HDL >or= 60 mg/dL High HDL Cholesterol Serum or plasma cholesterol in VLDL measurement (mass/volume)Ordered By: Gosia Delaney on 12-04-2022 Cholesterol in VLDL [Mass/Vol] 67 mg/dL 5-40 [facility] Serum or plasma creatinine m easurement (mass/volume)Ordered By: Gosia Delaney on 12-04-2022 Creatinine [Mass/Vol] 0.86 mg/dL 0.70-1.30 [facility] Comment on above: The validity of the calculated GFR & GFRAA in patients over 70 years has not been determined. Clinical correlation is essential. Serum or plasma low density lipoprotein (LDL) cholesterol measurement (mass/volume)Ordered By: Gosia Delaney on 12-04-2022 Cholesterol in LDL [Mass/Vol] 45 mg/dL 0-130 [facility] Serum or plasma urea nitroge n measurement (mass/volume)Ordered By: Gosia Delaney on 12-04-2022 Urea nitrogen [Mass/Vol] 6 mg/dL 7-18 [facility] Thin prep Papanicolaou smear with manual screeningOrdered By: Gosia Delaney on 12-04-2022 Thin prep Papanicolaou smear with manual screening 43 U/L 15-37 [facility] Thin prep Papanicolaou smear with manual screening 8 5-15 [facility] Thin prep Papanicolaou smear with manual screening 11.3 mg/L NO RANGE EST. [facility] Urine creatinine measurement (mass/volume)Ordered By: Gosia Delaney on 12-04-2022 Creatinine (U) [Mass/Vol] 73.10 mg/dL NO RANGE EST. [facility] Absolute lymphocyte countOrd ered By: Dr. Delaney on 06-04-2022 Lymphocytes Auto (Unsp spec) [#/Vol] 1.97 10*3/uL 0.83-4.51 [facility] Basophil percentageOrdered B y: Dr. Delaney on 06-04-2022 Basophils/100 WBC (Bld) 0.8 % 0-1 [facility] Bilirubin [Mass/Vol] 0.60 mg/dL 0.20-1.00 [facility] Comment on above: For patients on eltr ombopag therapy, use of [place] TBIL is not recommended. Chloride [Moles/Vol] 101 mmol/L 98-107 [facility] Cholesterol [Mass/Vol] 248 mg/dL <200 [facility] Comment on above: <200 mg/dL Desirable 200-240 mg/dL Borderline >240 mg/dL High Risk Eosinophils/100 WBC (Bld) 6.3 % 0-5 [facility] Glucose [Mass/Vol] 106 mg/dL 74-106 [facility] Comment on above: Fasting Glucose resu lt from 100 to 125 mg/dL suggests IMPAIRED HOMEOSTASIS per A.D.A. criteria. Neutrophils (Bld) [#/Vol] 4.0 10*3/uL 2.0-7.7 [facility] Neutrophils/100 WBC (Bld) 56.1 % 47-70 [facility] Potassium [Moles/Vol] 4.2 mmol/L 3.5-5.1 [facility] Protein [Mass/Vol] 7.2 g/dL 6.4-8.2 [facility] Sodium [Moles/Vol] 139 mmol/L 136-145 [facility] Triglyceride [Mass/Vol] 543 mg/dL <199 [facility] Comment on above: The drugs N-Acetylcy steine and Metamizole may falsely depress this assay. TRIGLYCERIDE IS GREATER THAN 400 mg/dL. LDL RESULT IS INVALID AND WILL NOT BE REPORTED.Serum Triglycerides Reference Interval Normal <150 mg/dL Borderline high 150 - 199 mg/dL High 200 - 499 mg/dL Very High > or = 500 mg/dL WBC (Bld) [#/Vol] 7.1 10*3/uL 4.4-11.0 [facility] Blood erythrocytes count (nu mber/volume)Ordered By: Dr. Delaney on 06-04-2022 RBC (Bld) [#/Vol] 4.77 10*6/uL 4.6-6.2 [facility] Blood hemoglobin measurement (mass/volume)Ordered By: Dr. Delaney on 06-04-2022 Hemoglobin (Bld) [Mass/Vol] 15.3 g/dL 13.0-16.5 [facility] Blood lymphocytes/100 leukoc ytesOrdered By: Dr. Delaney on 06-04-2022 Lymphocytes/100 WBC (Bld) 27.7 % 19-41 [facility] Blood monocytes/100 leukocyt esOrdered By: Dr. Delaney on 06-04-2022 Monocytes/100 WBC (Bld) 8.7 % 0-10 [facility] Blood platelet mean volumeOr dered By: Dr. Delaney on 06-04-2022 Platelet mean volume (Bld) [Entitic vol] 11.3 fL 6.2-12.0 [facility] Determination of erythrocyte mean corpuscular volume (MCV)Ordered By: Dr. Delaney on 06-04-2022 MCV (RBC) [Entitic vol] 95.8 fL 80-94 [facility] Hematocrit Auto (Bld) [Volum e fraction]Ordered By: Dr. Delaney on 06-04-2022 Hematocrit (Bld) [Volume fraction] 45.7 % 40-54 [facility] Laboratory - Chemistry and C hemistry - challengeOrdered By: Dr. Delaney on 06-04-2022 ALP [Catalytic activity/Vol] 86 U/L 45-117 [facility] ALT [Catalytic activity/Vol] 47 U/L 16-61 [facility] Amylase [Catalytic activity/Vol] 257 U/L 15-85 [facility] CO2 [Moles/Vol] 28.0 mmol/L 21.0-32.0 [facility] Globulin (S) [Mass/Vol] 3.3 g/dL 2.2-4.2 [facility] Urea nitrogen/Creatinine [Mass ratio] 10.2 mg/mg 10-20 [facility] Laboratory - Hematology and Cell countsOrdered By: Dr. Delaney on 06-04-2022 Erythrocyte distribution width (RBC) [Entitic vol] 44.5 fL 35.1-43.9 [facility] Erythrocyte distribution width (RBC) [Ratio] 12.6 % 11.6-14.6 [facility] Immature granulocytes/100 WBC (Bld) 0.400 % 0.0-0.9 [facility] Comment on above: IG% - Immature Granu locytes (promyelocytes, myelocytes and metamyelocytes) > 1% indicates that a LEFT SHIFT is Present. MCH (RBC) [Entitic mass] 32.1 pg 27.0-32.0 [facility] Nucleated RBC/100 WBC (Bld) [Ratio] 0 % 0-5 [facility] MCHC Auto (RBC) [Mass/Vol]Or dered By: Dr. Delaney on 06-04-2022 MCHC (RBC) [Mass/Vol] 33.5 g/dL 32-36 [facility] No Panel InformationOrdered By: Dr. Delaney on 06-04-2022 Estimated GFR (MDRD) Amer 127 mL/min >60 [facility] Comment on above: GFR Calc Estimated GFR (MDRD) Non-Af Amer 105 mL/min >60 [facility] Comment on above: Non- GFR Calc Thyroid Stimulating Hormone (TSH) 2.34 uIU/mL 0.358-3.74 [facility] Urine Microalbumin/Creatinine Ratio 184.4 mg/g CRE <30 [facility] Platelets bldOrdered By: Dr. Delaney on 06-04-2022 Platelets (Bld) [#/Vol] 224 10*3/uL 150-450 [facility] Serum or plasma albumin zac urement (mass/volume)Ordered By: Dr. Delaney on 06-04-2022 Albumin [Mass/Vol] 3.9 g/dL 3.2-5.0 [facility] Serum or plasma albumin/glob ulin mass ratioOrdered By: Dr. Delaney on 06-04-2022 Albumin/Globulin [Mass ratio] 1.2 {ratio} 0.9-2.4 [facility] Serum or plasma calcium zac urement (mass/volume)Ordered By: Dr. Delaney on 06-04-2022 Calcium [Mass/Vol] 9.1 mg/dL 8.5-10.1 [facility] Serum or plasma cholesterol in HDL measurement (mass/volume)Ordered By: Dr. Delaney on 06-04-2022 Cholesterol in HDL [Mass/Vol] 49 mg/dL >40 [facility] Comment on above: The drugs N-Acetylcy steine and Metamizole may falsely depress this assay. Reference Range HDL <40 mg/dL Low HDL Cholesterol HDL >or= 60 mg/dL High HDL Cholesterol Serum or plasma cholesterol in VLDL measurement (mass/volume)Ordered By: Dr. Delaney on 06-04-2022 Cholesterol in VLDL [Mass/Vol] [facility] Comment on above: Test not performed Serum or plasma creatinine m easurement (mass/volume)Ordered By: Dr. Delaney on 06-04-2022 Creatinine [Mass/Vol] 0.78 mg/dL 0.70-1.30 [facility] Comment on above: The validity of the calculated GFR & GFRAA in patients over 70 years has not been determined. Clinical correlation is essential. Serum or plasma low density lipoprotein (LDL) cholesterol measurement (mass/volume)Ordered By: Dr. Delaney on 06-04-2022 Cholesterol in LDL [Mass/Vol] [facility] Comment on above: Test not performed Serum or plasma urea nitroge n measurement (mass/volume)Ordered By: Dr. Delaney on 06-04-2022 Urea nitrogen [Mass/Vol] 8 mg/dL 7-18 [facility] Thin prep Papanicolaou smear with manual screeningOrdered By: Dr. Delaney on 06-04-2022 Thin prep Papanicolaou smear with manual screening 37 U/L 15-37 [facility] Thin prep Papanicolaou smear with manual screening 10 5-15 [facility] Thin prep Papanicolaou smear with manual screening 69.7 mg/L NO RANGE EST. [facility] Urine creatinine measurement (mass/volume)Ordered By: Dr. Delaney on 06-04-2022 Creatinine (U) [Mass/Vol] 37.80 mg/dL NO RANGE EST. [facility] Vital Signs Date Time Vital Sign Value Performing Clinician Facility 11-08-2024 07:56-0400 Body height 157.[address] Gosia Delaney MD Work Phone: [facility] 11-08-2024 07:56-0400 Body mass index (BMI) [Ratio] 21.4 kg/m2 Dr. Gosia Delaney MD Work Phone: [facility] 11-08-2024 07:56-0400 Body temperature 97.8 [degF] Dr. Gosia Delaney MD Work Phone: [facility] 11-08-2024 07:56-0400 Body weight 53.[address] Gosia Delaney MD Work Phone: [facility] 11-08-2024 07:56-0400 Diastolic blood pressure 64 mm[Hg] Dr. Gosia Delaney MD Work Phone: [facility] 11-08-2024 07:56-0400 Heart rate 59 /min Dr. Gosia Delaney MD Work Phone: [facility] 11-08-2024 07:56-0400 Respiratory rate 15 /min Dr. Gosia Delaney MD Work Phone: [facility] 11-08-2024 07:56-0400 SaO2% (BldA) [Mass fraction] 98 % Dr. Gosia Delaney MD Work Phone: [facility] 11-08-2024 07:56-0400 Systolic blood pressure 144 mm[Hg] Dr. Gosia Delaney MD Work Phone: [facility] 08-30-2023 13:51-0400 Body height 160 cm Mary Carmen Cline MD Work Phone: [facility] 08-30-2023 13:51-0400 Body mass index (BMI) [Ratio] 20.9 kg/m2 Mary Carmen Cline MD Work Phone: [facility] 08-30-2023 13:51-0400 Body weight 53.52 kg Mary Carmen Cline MD Work Phone: [facility] 08-30-2023 13:51-0400 Diastolic blood pressure 90 mm[Hg] Mary Carmen Cline MD Work Phone: [facility] 08-30-2023 13:51-0400 Systolic blood pressure 183 mm[Hg] Mary Carmen Cline MD Work Phone: [facility] 08-25-2023 14:46-0400 Body height 160 cm Jessy Stafford MD Work Phone: [facility] 08-25-2023 14:46-0400 Body temperature 98.29 [degF] Jessy Stafford MD Work Phone: [facility] 08-25-2023 14:46-0400 Body weight 54.16 kg Jessy Stafford MD Work Phone: [facility] 08-25-2023 14:46-0400 Diastolic blood pressure 68 mm[Hg] Jessy Stafford MD Work Phone: [facility] 08-25-2023 14:46-0400 Heart rate 77 /min Jessy Stafford MD Work Phone: [facility] 08-25-2023 14:46-0400 SaO2% (BldA) [Mass fraction] 98 % Jessy Stafford MD Work Phone: [facility] 08-25-2023 14:46-0400 Systolic blood pressure 154 mm[Hg] Jessy Stafford MD Work Phone: [facility] 07-03-2023 14:35-0500 Body temperature 97.9 [degF] Dr. Gosia Delaney Work Phone: [facility] 07-03-2023 14:35-0500 Diastolic blood pressure 66 mm[Hg] Dr. Gosia Delaney Work Phone: [facility] 07-03-2023 14:35-0500 Heart rate 56 /min Dr. Gosia Delaney Work Phone: [facility] 07-03-2023 14:35-0500 Respiratory rate 14 /min Dr. Gosia Delaney Work Phone: [facility] 07-03-2023 14:35-0500 SaO2% (BldA) [Mass fraction] 98 % Dr. Gosia Delaney Work Phone: [facility] 07-03-2023 14:35-0500 Systolic blood pressure 171 mm[Hg] Dr. Gosia Delaney Work Phone: [facility] 07-03-2023 11:50-0500 Body height 157.[address] Gosia Delaney Work Phone: [phone])[phone] [address] 07-03-2023 11:50-0500 Body mass index (BMI) [Ratio] 22 kg/m2 Dr. Gosia Delaney Work Phone: [phone] [place] [address] 07-03-2023 11:50-0500 Body weight 54.[address] Gosia Delaney Work Phone: 5(544)[phone] [place] [address] 04-19-2023 07:54-0500 Body height 157.[address] Gosia Delaney Work Phone: 6(216)[phone] [address] 04-19-2023 07:54-0500 Body mass index (BMI) [Ratio] 21.1 kg/m2 Dr. Gosia Delaney Work Phone: 0([phone] [place] [address] 04-19-2023 07:54-0500 Body temperature 97.8 [degF] Dr. Gosia Delaney Work Phone: [facility] 04-19-2023 07:54-0500 Body weight 52.[address] Gosia Delaney Work Phone: [facility] 04-19-2023 07:54-0500 Diastolic blood pressure 80 mm[Hg] Dr. Gosia Delaney Work Phone: [facility] 04-19-2023 07:54-0500 Heart rate 80 /min Dr. Gosia Delaney Work Phone: [facility] 04-19-2023 07:54-0500 Respiratory rate 17 /min Dr. Gosia Delaney Work Phone: [facility] 04-19-2023 07:54-0500 SaO2% (BldA) [Mass fraction] 99 % Dr. Gosia Delaney Work Phone: [facility] 04-19-2023 07:54-0500 Systolic blood pressure 108 mm[Hg] Dr. Gosia Delaney Work Phone: [facility] 11-02-2022 08:00-0400 Body height 157.[address] Gosia Delaney Work Phone: 4(001)[phone] [address] 11-02-2022 08:00-0400 Body mass index (BMI) [Ratio] 22 kg/m2 Dr. Gosia Delaney Work Phone: [facility] 11-02-2022 08:00-0400 Body temperature 98 [degF] Dr. Gosia Delaney Work Phone: [facility] 11-02-2022 08:00-0400 Body weight 54.[address] Gosia Delaney Work Phone: [facility] 11-02-2022 08:00-0400 Diastolic blood pressure 68 mm[Hg] Dr. Gosia Delaney Work Phone: [facility] 11-02-2022 08:00-0400 Heart rate 72 /min Dr. Gosia Delaney Work Phone: [facility] 11-02-2022 08:00-0400 Respiratory rate 16 /min Dr. Gosia Delaney Work Phone: [facility] 11-02-2022 08:00-0400 SaO2% (BldA) [Mass fraction] 99 % Dr. Gosia Delaney Work Phone: [facility] 11-02-2022 08:00-0400 Systolic blood pressure 120 mm[Hg] Dr. Gosia Delaney Work Phone: [facility] Encounters Encounter Date Encounter Type Care Provider Facility Start: 11-22-2024 ambulatory Gosia Delaney Facility:[facility] Start: 11-08-2024 End: 11-08-[address] Tuan Foster MD -[facility] Work Phone: Start: 11-08-2024 End: 11-08-[address] Gosia Delaney MD Work Phone: [facility] Start: 07-12-2024 End: 07-12-[address] Gosia Delaney MD Work Phone: [facility] Work Phone: Start: 07-12-2024 End: 07-12-[address] Tina Sutherland DO -Laboratory, [address] Start: 07-12-2024 End: 07-12-2024 ambulatory Gosia Delaney Facility:[facility] Start: 06-29-2024 End: 06-29-[address] Gosia Delaney MD -Pulmonary Services/Neurology Work Phone: Start: 06-29-2024 ambulatory Franck Shelby Facility:[facility] Start: 06-29-2024 End: 06-29-2024 ambulatory Gosia Delaney Facility:[facility] Start: 06-21-2024 End: 06-21-[address] Gosia Delaney MD -Laboratory, [facility] Start: 06-21-2024 End: 06-21-2024 ambulatory Gosia Delaney Facility:[facility] Start: 01-22-2024 ambulatory Gosia Delaney Facility:[facility] Start: 01-19-2024 End: 01-19-2024 ambulatory Gosia Delaney Facility:[facility] Start: 01-17-2024 End: 01-17-2024 ambulatory Gosia Delaney Facility:[facility] Start: 01-14-2024 End: 01-14-2024 ambulatory Gosia Delaney Facility:[facility] Start: 12-20-2023 End: 12-20-2023 ambulatory Gosia Delaney Facility:[facility] Start: 08-30-2023 End: 08-30-2023 ambulatory MARY CARMEN CLINE Facility:[facility] Start: 08-30-2023 End: 08-30-2023 Patient encounter procedure Mary Carmen Cline MD Work Phone: [facility] Comment on above: Symptomatic cholelit hiasis (Primary Dx) Start: 08-25-2023 End: 08-25-2023 ambulatory JESSY STAFFORD Facility:[facility] Start: 08-25-2023 End: 08-25-2023 Patient encounter procedure Jessy Stafford MD Work Phone: General Surgery Comment on above: Calculus of gallblad shelby without cholecystitis without obstruction (Primary Dx) Start: 07-06-2023 End: 07-06-[address] Gosia Delaney Work Phone: [facility] Work Phone: Start: 07-06-2023 End: 07-06-[address] Gosia Delaney Work Phone: [facility] Start: 07-03-2023 End: 07-03-2023 Emergency department patient visit Dr. Gosia Delaney Work Phone: [facility]-Emergency Department Work Phone: Start: 06-07-2023 Non-patient / Non-visit Dr. Joni Delaney Work Phone: [facility] Start: 06-07-2023 End: 06-07-[address] Gosia Delaney Work Phone: [facility] Work Phone: Start: 06-07-2023 End: 06-07-[address] Gosia Delaney Work Phone: [facility]Cardiovascula [facility] Services Work Phone: Start: 04-19-2023 End: 04-19-[address] Gosia Delaney Work Phone: [facility] Work Phone: Start: 04-12-2023 End: 04-12-2023 ambulatory [facility] Work Phone: Start: 04-12-2023 End: 04-12-2023 Patient encounter procedure [facility] Work Phone: Start: 04-05-2023 End: 04-05-2023 ambulatory [facility] Work Phone: Start: 04-05-2023 End: 04-05-2023 Patient encounter procedure [facility] Work Phone: Start: 03-29-2023 End: 03-29-2023 ambulatory [facility] Work Phone: Start: 03-29-2023 End: 03-29-2023 Patient encounter procedure [facility] Work Phone: Start: 01-05-2023 End: 01-05-[address] Gosia Delaney Work Phone: [facility] Work Phone: Start: 01-05-2023 End: 01-05-[address] Gosia Delaney Work Phone: [facility] Work Phone: Start: 01-02-2023 End: 01-02-[address] [facility] Work [facility] Start: 12-04-2022 End: 12-04-[address] Gosia Delaney Work Phone: [facility] Work Phone: Start: 12-04-2022 End: 12-04-[address] Gosia Delaney Work Phone: [facility] Start: 11-03-2022 Non-patient / Non-visit Dr. Joni Delaney Work Phone: [facility] Start: 11-03-2022 End: 11-03-[address] Gosia Delaney Work Phone: [facility] Work Phone: Start: 11-03-2022 End: 11-03-[address] [facility] Delaney [facility] Work Phone: Start: 11-02-2022 End: 11-02-[address] Gosia Delaney Work Phone: [facility] Work Phone: Start: 06-04-2022 End: 06-04-[address] Gosia Delaney Work Phone: [facility] Work Phone: Start: 06-04-2022 End: 06-04-[address] Gosia Delaney Work Phone: [facility] Start: 03-03-2022 Non-patient / Non-visit Dr. Joni Delaney Work Phone: [facility] Start: 03-03-2022 End: 03-03-[address] [facility] Delaney [facility] Procedures Date Procedure Procedure Detail Performing Clinician Start: 07-03-2023 CT angiography of ch est with contrast Dr. Gosia Delaney Work Phone: Start: 07-03-2023 Plain chest X-ray Dr. Pat Delaney Work Phone: Start: 01-05-[address] Gosia landa Work Phone: Plan of Treatment Date Care Activity Detail Author Start: 12-04-2032 Urine microalbumin profile DTaP,Tdap,Td Vaccine (2 - Td or Tdap) [facility] Start: 12-17-2025 Screening for malign ant neoplasm of colon [facility] Start: 07-03-2023 [facility] Start: 07-03-2023 [facility] Start: 05-10-2023 Advance Directive Discussion Advance Directive Discussion [facility] Start: 05-10-2023 Behavioral Health Screening Behavioral Health Screening [facility] Start: 2013 RSV Vaccine (1 - 1-d ose 60+ series) RSV Vaccine (1 - 1-dose 60+ series) [facility] Start: 08-04-2003 Shingrix Vaccine (1 of 2) Ty grix Vaccine (1 of 2) [facility] Start: 1998 Diabetes Screening Diabetes Screenin g [facility] Start: 1998 Screening for malign ant neoplasm of colon [facility] Start: 1988 Lipid panel Lipid Screening [facility] Start: 08-04-1971 Hepatitis C screening Hepatitis C Sc [facility] Start: 1955 Abdominal aortic ane urysm screening Abdominal Aortic Aneurysm Screening [facility] Patient Education ED Chest Pain, Uncertain Cause [facility] Work Phone: Patient referral [facility] Work Phone: [place] Carotid arteries [facility] Carotid arteries [facility] Payers Date Payer Category Payer Self-pay [id number] 2018 Medicare [id number] 2018 Medicare MEDICARE MEDICAR E A AND B [id number] 2018-Present [phone] [address] [address] [place] [address] Medicare [id number] 2018 Unknown JUANY HARRINGTON ME DICARE SUPPLEMENT [id number] 2018-Present [phone] [address] [place] [address] Indemnity [id number] 2016 Unknown [facility] [id number] 2013 Unknown [id number] Unknown [facility] [id number] Unknown [id number] Unknown [id number] Unknown [id number] Unknown [id number] Unknown [id number] [id number] Unknown [id number] [id number] Unknown [id number] [id number] Unknown [id number] 2.16.840.1.592736.3.579.2.462 Unknown [id number] [id number]2 Unknown [id number] [id number] Unknown [id number] Social History Date Type Detail Facility Start: 02-02-2022 End: 07-03-2023 Tobacco smoking status ALIS Unknown if ever smoked [facility] Start: 1955 Sex Assigned At Male [facility] Start: 07-03-2023 End: 08-25-2023 Tobacco smoking status NHIS Smokes tobacco daily [facility] History of tobacco use Cigarette Smoker [facility] Start: 08-25-2023 End: 08-30-2023 Cigarettes smoked current (pack per day) - Reported 0.8 [facility] Start: 08-25-2023 End: 08-30-2023 Tobacco use and exposure Smokeless tobacco non-user [facility] Start: 08-25-2023 End: 08-30-2023 Alcohol intake Current drinker of alcohol (finding) [facility] Start: 08-25-2023 End: 08-30-2023 Tobacco use panel [facility] National Score (1-10 0), lower number is lower risk 47 [facility] Start: 08-25-2023 Alcohol Comment [facility] Start: 1955 Sex Assigned At Not on file [facility] Start: 07-26-2024 Sex Male (finding) [facility] Mental Status Date Assessment Result Facility 07-03-2023 Cognitive function Awake;Alert;A ppropriate;Fol lows Commands [facility] Work Phone: Clinical Notes 07-03-2023 to 08-30-2023 Patient InstructionsMary Carmen Cline MD - 08/30/2023 2:35 PM AUDREYTJessy Stafford MD - 08/25/2023 3:00 PM Naila Tong MA - 08/25/2023 2:55 PM EDT Note Date & Type Note Facility 08-30-2023 Note HNO ID: [id number] Author: MARY CARMEN CLINE MD Service: ? [...] which included preparing to see the patient, [id number] patient care, completing clinical (more content not included)... [facility] 08-30-2023 Instructions Mary Carmen Cline MD [...] people who take drugs that lower cholesterol Italian Indians and people of [place] descent What are the symptoms of gallstones? [...] people who take these drugs. References National [place] of Diabetes and Digestive and Kidney Diseases. Gallstones Accessed 03/29/2014. [employer]. Gallstones Accessed 03/29/2014. National [place] of Diabetes and Digestive and Kidney Diseases. ERCP (Endoscopic Retrograde Cholangiopancreatography) Accessed 03/29/2014. Copyright 2084-0425 The [facility]. All rights reserved. This information is provided by the [facility] and is not intended to replace the medical advice of your doctor or health care provider. Please consult your health care provider for advice about a specific medical condition. For additional health information, please contact the Center for Consumer Health Information at the [facility] or toll-free extension [phone]. If you prefer, you may visit [email or web address] or [email or web address]. This document was last reviewed on: 2014 [...] laparoscopic cholecystectomy? Less discomfort than regular surgery [place] hospital stay, with a quicker recovery time [...] closed using surgical clips and stitches. References [employer]. Cholecystectomy Accessed 11/15/2015. [employer] of [employer] G[employer]oscopic [employer]. Laparoscopic Gallbladder Removal (Patient Information from [facility] Accessed 11/15/2015. Copyright 9896-5763 The [facility]. All rights reserved This information is provided by the [facility] and is not intended to replace the medical advice of your doctor or health care provider. Please consult your health care provider for advice about a specific medical condition. For additional health information, please contact the Center for Consumer Health Information at the [facility] or toll-free extension [phone]. If you prefer, you may visit [email or web address] or [email or web address]. This document was last reviewed on: 2015 documented in this encounter [facility] 08-30-2023 History of Present illness Narrative Fahad Gaxiola Marion Jr is a 68 year old, White [...] which included preparing to see the patient, [id number] patient care, completing clinical documentation, obtaining and/or [...] Cline M.D., FACS documented in this encounter [facility] 08-25-2023 Note HNO ID: [id number] Author: JESSY STAFFORD MD Service: ? Author Type: Physician Type: Progress Notes Filed: 08/28/2023 15:26 Note Text: Fahad De Leon Jr 1955 REFERRING PHYSICIAN: No ref. provider found CHIEF COMPLAINT: New Patient and Abdominal Pain HPI: The patient is a 68 year old male presents with abnormal findings on gallbladder ultrasound. He had presented to [facility] ED with right lower rib pain. [...] entered by the nurse and reviewed by ca Nursing Notes: Naila Looney MA 08/25/2023 2:58 [...] a history of (more content not included)... [facility] 08-25-2023 History of Present illness Narrative Fahad De Leon Jr 1955 REFERRING PHYSICIAN: No ref. provider found CHIEF COMPLAINT: New Patient and Abdominal Pain HPI: The patient is a 68 year old male presents with abnormal findings on gallbladder ultrasound. He had presented to [facility] ED with right lower rib pain. [...] present with him. Will refer patient to [facility] for consideration of gallbladder surgery. The patient states to call , patient's as patient has difficulty hearing, can leave voice mail. I personally made call to [facility] general surgery for them to contact patient [...] records from other medical facilities such as [facility], [id number] patient care, obtaining oral medical history from the patient in this encounter, performing a medically appropriate examination, counseling and educating the patient/family/caregiver, and ordering and/or scheduling of medications/tests/procedures, and completing appropriate medical documentation. Jessy Stafford MD documented in this encounter [facility] 08-25-2023 Nurse Note REVIEW OF SYSTEMS: General: [...] Naila Looney MA documented in this encounter [facility] 07-03-2023 Discharge summary Note Date/Time July 03, 2023 12:26pm [facility] Medical Records Department [address] [place] [address] Emergency Department Summary 07/03/23 MR#: [id number] Acct: [id number] Name: FAHAD DE LEON Rep #:[id number] : 1955 67 From: Lionel Ocasio MD [...] DAILY 08/05/21 [History Last Taken Unknown] omega 2-pvq-sdo-fish oil 300 mg-1,000 mg capsule,delayed release (Fish [...] details: gym frequency: 3-4 times per week angie/gnosticist: Alevism seatbelt use: always ROS ROS ED ROS [...] % (Auto) 67.7 Lymph % (Auto) 19.8 Granite % (Auto) 7.2 Eos % (Auto) 4.6 [...] rate of 62 no acute signs of RI or ischemia. Discharge Plan Triage Chief Complaint: [...] mg tablet 500 mg PO DAILY omega 2-ays-jer-fish oil [Fish Oil] 300-1,000 mg capsule,delayed release(DR/EC) [...] your Primary Care Provider. Call [facility] ([phone]) or report to the closest Emergency Room. Call 911 if necessary. 07/03/23 1451 <Electronically signed by Lionel Ocasio MD> Cosigner Signature (if applicable): CC: Dr. Gosia Delaney MD ~ Signed [facility] Work Phone: Evaluation noteNo assessment information available [facility] Work Phone: Evaluation note* Diagnosis Onset Date Resolution Status Carotid stenosis, asymptomatic acute Essential tremor chronic [facility] Work Phone: Evaluation note* Diagnosis Calculus of gallbladder without cholecystitis without obstruction- Primary Calculus of gallbladder without mention of cholecystitis or obstruction [facility] Diagnosis Symptomatic cholelithiasis- Primary Calculus of gallbladder without mention of cholecystitis or obstruction [facility] Diagnosis Onset Date Resolution Status Admit Date Carotid stenosis, asymptomatic acute November 08, 2024 7:56am Essential tremor chronic November 7:56am [facility] Work Phone: Hospital Discharge instructions Additional Instructions [...] your heart and is not a blood clot.[facility] Work Phone: Reason for referral (narrative)No reason for referral information [facility]WAd[facility] Work Phone: Chief Complaint and Reason for [...] Will Yes March 30 9:20pm Power of Triage Licensed Practical Nurse Yes March 30, 2017 9:20pm Advance Directive Response Recorded Date/ Time Living Will Yes March 30 10:20pm Power of Triage Licensed Practical Nurse Yes March 30, 2017 10:20pm Advance Directive Response Recorded Date/ Time Living Will No July 03 11:56am Power of Triage Licensed Practical Nurse No July 03, 2023 11:56am Advance Directive Response Recorded Date/ Time Living Will No July 03 12:56pm Do you have a Healthcare Power of Triage Licensed Practical Nurse? No July 03, 2023 12:56pm Summary Purpose [...] MD Attending Provider, Emergency Pro vider Active [employer] Relationship Specialty Start Date End Date Gosia Delaney MD [address] [place] [address] PCP - General Family Medicine 07/26/23 [employer] Relationship Specialty Start Date End Date Gosia Delaney MD [address] [place] [address] PCP - General Family Medicine 07/26/23 Team [...] Status: Inactive Member Role Status Dates Dr. Goisa Delaney MD Primary Care Provider Active Start: [...] or prosecute any alcohol or drug abuse patient.[facility] the event this information is protected by the Federal Confidentiality of Alcohol and Drug Abuse Patient Records regulations: The Federal rules restrict any use of the information to criminally investigate or prosecute any alcohol or drug abuse patient.[facility] Reason for Visit (unrecogniz ed section and content) Reason Comments New Patient Abdominal Pain Reason Comments GB (unrecognized sect ion and content) No Status Records FoundNo Status Records FoundNo Status Records Found INFORMATION SOURCE (unrecogn ized section and content) DATE CREATED AUTHOR 08/29/[address] [facility] DATE CREATED AUTHOR AUTHOR'S ORGANIZ ATION 08/31/2023 [facility] DATE CREATED AUTHOR AUTHOR'S ORGANIZ ATION 11/17/2024 [facility] FOR RECORDS PERTAINING TO PATIENTS WHO ARE [...] BE BASED ON THE PRIMARY CLINICAL RECORDS. [employer] [facility]. provides no warranty or guarantee of the accuracy or completeness of information in this document.
[2024-11-20 00:52] LABS: Hematocrit 39.7 % (40-54); Hemoglobin 14.0 g/dL (13.0-16.5); Immature Granulocytes Count 0.060 X10^3/uL (0.0-0.0); Mean Corp Hgb Conc 35.3 g/dL (32-36); Mean Corpuscular Volume 89.4 fL (80-94); Mean Platelet Vol. 10.2 fl (6.2-12.0); NRBC Flagged by Analyzer 0 % (0-5); Platelet Count 173 K/mm3 (150-450); RBC Distribution Width CV 13.0 % (11.6-14.6); RBC Distribution Width SD 42.8 fl (35.1-43.9); Red Blood Count 4.44 M/mm3 (4.6-6.2); White Blood Count 16.7 K/mm3 (4.4-11.0)
[2024-11-20 00:56] LABS: Prothrombin Time (Protime)PT. 13.2 SECONDS (11.7-14.9)
[2024-11-20 00:57] LABS: Partial Thromboplast Time 23.0 Seconds (24.1-36.2)
[2024-11-20 01:30] LABS: AST(SGOT) 275 U/L (<=37); Alanine Aminotransfer ALT/SGPT 215 U/L (<=46); Albumin, Serum 4.0 g/dL (3.4-4.8); Alkaline Phosphatase 111 U/L (40-129); Anion Gap 13 (5-15); BUN 15 mg/dL (4-19); BUN/Creat Ratio 16.8 RATIO (10-20); Calcium,Total 8.6 mg/dL (7.6-11.0); Carbon Dioxide 22.9 mmol/L (21.0-32.0); Chloride 95 mmol/L (98-108); Estimated Creatinine Clearance 60.51 ml/min (50-250); Globulin 2.5 g/dL (2.2-4.2); Glucose 117 mg/dL (70-99); Potassium 4.4 mmol/L (3.3-5.1)
[2024-11-20 01:37] LABS: Lipase 1128 U/L (13-75)
[2024-11-20] MEDS: 0.9% Normal Saline (1000mL) 1,000 ML 125 ML IV ×2 (01:38→10:45)
[2024-11-20 01:42] LABS: Troponin T High Sens 4 HR 11 ng/L (<=22)
[2024-11-20] MEDS: 0.9% Normal Saline (250mL Bag) 250 ML 15 ML IV ×2 (01:54→12:14)
[2024-11-20] MEDS: 0.9% Saline Lock 10 ML Syringe IV ×4 (02:15→19:05)
--- OUTSIDE RECORDS SUMMARY | 2024-11-20 05:09 | XMS RPT_ITS | CCD ---
Author Organization [facility] Care Team Providers Care Chief Mechanical Officer Name Role Phone Dr. Gosia Delaney Primary Care Provider Dr. Gosia Melendez Attending Provider Dr. Tuan Foster Referring Provider Dr. Gosia Delaney Primary Care Provider [phone] Gosia Delaney Referring Provider [phone] Gosia Delaney MD Primary Care Provider [phone] Gosia Delaney MD Referring Provider [phone] Kristin CADET, Dr. Dickerson Attending Provider [phone] Delaney, Gosia Attending Unavailable Delaney, Gosia Referring [...] Attending Unavailable Delaney, Gosia Primary Care Unavailable Dr. Gosia Delaney MD Primary Care Provider Dr. Kevin Genao DO Emergency Provider [phone] Jazmyne CADET, Dr. Nagy Attending Provider Jazmyne CADET, Dr. Nagy Admit Provider [phone] Medications Current Medications Medication Drug Class(es) Dates Sig (Normalized) Sig (Original) amLODIPine 5 mg oral tablet (14 sources) Dihydropyridine Calcium Channel Donna Start: 03-30-2017 take 1 tablet by mouth once daily Amlodipine 5 MG tablet Active 5 mg PO DAILY March 30, 2017 1:00am Ascorbic Acid (2 sources) Vitamin C ascorbic acid (VITAMIN C ORAL) Take by mouth once daily. 0 Active Comment on above: Take by mouth once d aily. aspirin 81 mg chewable tablet (13 sources) Platelet Aggregation Inhibitor, Nonsteroidal Anti-inflammatory Drug [...] afternoon. calcium ascorbate 500 mg oral tablet (13 sources) Start: 08-05-2021 take 1 tablet by mouth once daily Ascorbate Calcium (Vitamin C) 500 mg tablet Active 500 mg PO DAILY August 05, 2021 12:00am calcium carbonate 1250 mg / cholecalciferol 100 unt chewable tablet (13 sources) Vitamin D Start: 09-11-2020 Calcium Carbonate-Vitamin [...] Active Comment on above: every 2 weeks. 200 actuat levalbuterol 0.045 mg/actuat metered dose inhaler (13 sources) beta2-Adrenergic Agonist Start: 03-30-20 17 Levalbuterol Tartrate 15 GM HFA aerosol inhaler Active 15 g IH DAILY as needed for Wheezing March 30, 2017 1:00am levocetirizine dihydrochloride 5 mg oral tablet (15 sources) Histamine-1 Receptor Antagonist Start: 03-30-20 17 take 1 tablet by mouth once daily Levocetirizine 5 MG tablet Active 5 mg PO DAILY March 30, 2017 1:00am Comment on above: Take 5 mg by mouth o nce daily. levothyroxine sodium 0.025 mg oral tablet (15 sources) l-Thyroxine Start: 09-17-19 take 1 tablet by mouth once daily Levothyroxine 25 mcg tablet Active 25 ug PO DAILY September 16, 2020 12:00am Comment on above: once daily. LOW-DOSE ASPIRIN ORAL (2 sources) LOW-DOSE ASPIRIN ORAL Take by mouth once daily. 0 Active Comment on above: Take by mouth once d aily. 24 hr metoprolol succinate 50 mg extended release oral tablet (14 sources) beta-Adrenergic Donna Start: 04-07-20 take 1 tablet by mouth every twenty-four [...] above: Take by mouth once d aily. [place] 1-Fby-Squ-Fish Oil (Fish Oil) 300-1,000 mg capsule,delayed release(DR/EC) (13 sources) Start: 02-02-2022 [place] 3-Trh-Clc-Fish Oil (Fish Oil) 300-1,000 mg capsule,delayed release(DR/EC) Active 1 NMA PO TWICE A DAY February 02, 2022 12:00am Start: 02-02-2022 take 300-1000 mg by mouth twice daily [place] 6-Zhs-Qvt-Fish Oil (Fish Oil) 300-1,000 mg capsule,delayed release(DR/EC) Active 1 CAP PO TWICE A DAY February 02, 2022 12:00am Start: 02-02-2022 take 300-1000 mg by mouth twice daily [place] 1-Juw-Cuw-Fish Oil (Fish Oil) 300-1,000 mg capsule,delayed release(DR/EC) Active 1 CAP PO TWICE A DAY February 01, 2022 11:00pm potassium citrate 10 meq extended release oral tablet (15 sources) Start: 03-30-2017 take 5 mEq by [...] daily. 0 06/15/2023 Active Start: 11-19-2020 End: 11-19-2024 take 1 tablet by mouth once daily in the morning Propranolol 10 mg tablet Discontinued 10 mg PO EVERY MORNING 30 4 April 07, 2021 9:41am November 19, 2024 8:28pm Comment on above: once daily. rosuvastatin calcium 20 mg oral tablet (13 sources) HMG-CoA Reductase Inhibitor Start: 017 take 1 tablet by mouth once daily Rosuvastatin 20 MG tablet Active 20 mg PO DAILY March 30, 2017 1:00am telmisartan 20 mg oral tablet (2 sources) Angiotensin 2 Receptor Donna Start: 024 Telmisartan 20 mg tablet once daily. 0 08/15/2023 Active Comment on above: once daily. thiamine 100 mg oral tablet (20 sources) Start: 019 End: 021 take 1 tablet by mouth once daily as needed Thiamine Mononitrate (Vit B1) 100 mg tablet Active 100 mg PO DAILY as needed September 16, 2020 8:10am 7 actuat umeclidinium 0.0625 mg/actuat dry powder inhaler (15 sources) Anticholinergic Start: 024 take 1 puff(s) by inhalation once daily [...] / HYDROcodone bitartrate 10 mg oral tablet (13 sources) Opioid Agonist Start: 03-30-2017 End: 05-18-2017 Hydrocodone-Acetami nophen 1 EACH tablet Discontinued 1 NMA PO EVERY 6 HOURS NEEDED as needed for Pain 14 March 30, 2017 11:13pm May 18, 2017 9:15am Start: 03-30-2017 End: 05-18-2017 Hydrocodone-Acetaminophen Di scontinued 1 EACH PO EVERY 6 HOURS NEEDED March 30, 2017 10:13pm May 18, 2017 8:15am amoxicillin 875 mg / clavulanate 125 mg oral tablet (13 sources) Penicillin-class Antibacterial Start: 05-18-2017 End: 05-28-2017 Amoxicillin-Pot Clavulanate (Augmentin) 875-125 mg tablet Discontinued 1 {tbl} PO Q12H 20 10 0 May 18, 2017 1:00am May 27, 2017 1:00am May 28, 2017 1:10am Acute sinusitis, unspecified irbesartan 75 mg oral tablet (14 sources) Angiotensin 2 Receptor Donna Start: 09-16-2020 End: 11-19-2024 take 1 tablet by mouth once daily Irbesartan 75 mg tablet Discontinued 75 mg PO DAILY September 16, 2020 12:00am November 19, 2024 8:27pm magnesium oxide 400 mg oral tablet (13 sources) Start: 03-30-2017 End: 09-16-2020 take 1 tablet by mouth once daily Magnesium Oxide 400 MG tablet Discontinued 400 mg PO DAILY March 30, 2017 1:00am September 16, 2020 8:10am omega-3 acid ethyl esters (jail) 1000 mg oral capsule (13 sources) Start: 12-31-2020 End: 04-07-2021 take 1 capsule by mouth twice daily at mealtime [place]-3 Acid Ethyl Esters (Lovaza) 1 gram capsule Discontinued 2 NMA PO TWICE A DAY 120 December 31, 2020 12:00am April 07, 2021 12:59pm Take with food predniSONE 20 mg oral tablet (13 sources) Start: 03-30-2017 End: 08-17-2018 take 2 [...] With food primidone 50 mg oral tablet (13 sources) Anti-epileptic Agent Start: 09-16-2020 End: 11-19-2020 [...] Date Documented Da te Episodic/Chronic Alcohol-related disorders (15 sources) Alcoholism; Translations: [Alcohol dependence, uncomplicated] Onset: 08-25-2023 08-05-2021 Chronic Biliary tract disease (4 sources) Cholelithiasis without obstruction; Translations: [Calculus of gallbladder without cholecystitis without obstruction] 08-28-2023 Episodic Chronic obstructive pulmonary disease and bronchiectasis (1 source) Chronic obstructive pulmonary disease, unspecified; Translations: [Chronic obstructive pulmonary disease, unspecified] Onset: 07-13-2024 Chronic Conditions associated with dizziness or vertigo (15 sources) Lightheadedness; Translations: [Dizziness and giddiness] Onset: 08-25-2023 09-16-2020 Episodic Disorders of lipid metabolism (16 sources) Hyperlipidemia; Translations: [Hyperlipidemia, unspecified] Onset: 04-15-2023 12-31-2020 Chronic Nonspecific chest pain (7 sources) Chest wall pain; Translations: [Other chest pain] Onset: 07-08-2023 07-03-2023 Episodic Occlusion or stenosis of precerebral arteries (20 sources) Bilateral stenosis of carotid arteries; Translations: [Occlusion and stenosis of bilateral carotid arteries] Onset: 11-11-2022 02-02-2022 Chronic Other gastrointestinal disorders (7 sources) H/O: gallstones; Translations: [Personal history of other diseases of the digestive system] Onset: 08-25-2023 07-03-2023 Episodic Other gastrointestinal disorders (5 sources) H/O: liver disease; Translations: [Personal history of other diseases of the digestive system] 07-03-2023 Episodic Other hereditary and degenerative nervous system conditions (15 sources) Essential tremor; Translations: [Essential tremor] 02-02-2022 Chronic Other hereditary and degenerative nervous system conditions (15 sources) Hereditary essential tremor; Translations: [Essential tremor] Onset: 08-25-2023 09-16-2020 Chronic Other hereditary and degenerative nervous system conditions (6 sources) Essential tremor; Translations: [Essential and other specified forms of tremor] 11-02-2022 Chronic Other liver diseases (15 sources) Elevated liver enzymes level; Translations: [High liver transaminase level] Onset: 08-25-2023 09-16-2020 Episodic Other upper respiratory infections (15 sources) Acute sinusitis; Translations: [Acute sinusitis, unspecified] Onset: 08-25-2023 05-18-2017 Episodic Pancreatic disorders (not diabetes) (2 sources) Gallstone pancreatitis; Translations: [Biliary acute pancreatitis without necrosis or infection] 11-19-2024 Episodic Superficial injury; contusion (15 sources) Contusion of left chest wall; Translations: [Contusion of left front wall of thorax, initial encounter] Onset: 08-25-2023 04-07-2018 Episodic Past or Other Problems Problem Classification Problem Date Documented Da te Episodic/Chronic Fluid and electrolyte disorders (2 sources) Hypo-osmolality and hyponatremia; Translations: [Hypo-osmolality and hyponatremia] Onset: 01-22-2024 Episodic Results Test Name Value Interpretation Reference Range Facility Absolute lymphocyte countOrd ered By: Kevin Genao on 11-19-2024 Lymphocytes Auto (Unsp spec) [#/Vol] 1.45 10*3/uL 0.83-4.51 [facility] Absolute neutrophil countOrd ered By: Kevin Genao on 11-19-2024 Neutrophils (Bld) [#/Vol] 14.0 10*3/uL High 2.0-7.7 [facility] Anion gap in Serum or Plasma Ordered By: Kevin Genao on 11-19-2024 Anion gap [Moles/Vol] 15 mmol/L 5-15 [facility] Automated lymphocyte count a s percentage of total leukocytesOrdered By: Kevin Genao on 11-19-2024 Lymphocytes/100 WBC Auto (Unsp spec) 8.8 % Low 19-41 [facility] BUN/creatinine ratioOrdered By: Kevin Genao on 11-19-2024 Urea nitrogen/Creatinine [Mass ratio] 17.7 mg/mg 10-20 [facility] Basophil percentageOrdered B y: Kevin Genao on 11-19-2024 Basophils/100 WBC (Bld) 0.2 % 0-1 [facility] Bilirubin directOrdered By: Kevin Genao on 11-19-2024 Bilirubin.direct [Mass/Vol] 0.76 mg/dL High 0.00-0.30 [facility] Bilirubin, totalOrdered By: Kevin Genao on 11-19-2024 Bilirubin [Mass/Vol] 1.04 mg/dL 0.00-1.30 [facility] Carbon dioxide, total [Moles /volume] in Central venous bloodOrdered By: Kevin Genao on 11-19-2024 CO2 [Moles/Vol] 22.0 mmol/L 21.0-32.0 [facility] Chloride assayOrdered By: pablo Genao on 11-19-2024 Chloride [Moles/Vol] 93 mmol/L Low 98-108 [facility] Eosinophil percentageOrdered By: Kevin Genao on 11-19-2024 Eosinophils/100 WBC (Bld) 1.3 % 0-5 [facility] Erythrocyte distribution wid th ratioOrdered By: Kevin Genao on 11-19-2024 Erythrocyte distribution width (RBC) [Ratio] 12.8 % 11.6-14.6 [facility] Erythrocyte distribution wid th standard deviationOrdered By: Kevin Genao on 11-19-2024 Erythrocyte distribution width (RBC) [Ratio] 41.6 fl 35.1-43.9 [facility] Glomerular filtration rate ( GFR) estimation/1.73 sq m using serum, plasma, or whole bOrdered By: Kevin Genao on 11-19-2024 GFR/1.73 sq M.predicted among non-blacks MDRD (S/P/Bld) [Vol rate/Area] 83 mL/min/{1.73_m2} >60 [facility] Comment on above: mL/min/1.73m2 CKD-EP I Creatinine Equation (2020) Hematocrit Auto (Bld) [Volum e fraction]Ordered By: Kevin Genao on 11-19-2024 Hematocrit (Bld) [Volume fraction] 39.2 % Low 40-54 [facility] Hemoglobin measurementOrdere d By: Kevin Genao on 11-19-2024 Hemoglobin (Bld) [Mass/Vol] 14.0 g/dL 13.0-16.5 [facility] Immature granulocytes/100 WB C Auto (Bld)Ordered By: Kevin Genao on 11-19-2024 Immature granulocytes/100 WBC (Bld) 0.500 % 0.0-0.9 [facility] Comment on above: IG% - Immature Granu locytes (promyelocytes, myelocytes and metamyelocytes) > 1% indicates that a LEFT SHIFT is Present. Laboratory - Chemistry and C hemistry - challengeOrdered By: Kevin Genao on 11-19-2024 AST [Catalytic activity/Vol] 217 U/L High <38 [facility] Lipase measurementOrdered By : Kevin Genao on 11-19-2024 Lipase [Catalytic activity/Vol] 2936 U/L High 13-75 [facility] Comment on above: Please note:LIPASE r evised reference range effective 22. New Lipase methodology. Expected to produce lower values than the previous assay method. NEW Reference Range: 13 - 75 U/L MCV (mean corpuscular volume ) determinationOrdered By: Kevin Genao on 11-19-2024 MCV (RBC) [Entitic vol] 88.5 fL 80-94 [facility] Mean corpuscular hemoglobin (MCH) determinationOrdered By: Kevin Genao on 11-19-2024 MCH (RBC) [Entitic mass] 31.6 pg 27.0-32.0 [facility] Mean corpuscular hemoglobin concentration (MCHC) determinationOrdered By: Kevin Genao on 11-19-2024 MCHC (RBC) [Mass/Vol] 35.7 g/dL 32-36 [facility] Mean platelet volume determi nationOrdered By: Kevin Genao on 11-19-2024 Platelet mean volume (Bld) [Entitic vol] 10.5 fL 6.2-12.0 [facility] Monocyte percentageOrdered B y: Kevin Genao on 11-19-2024 Monocytes/100 WBC (Bld) 4.3 % 0-10 [facility] Neutrophil percentageOrdered By: Kevin Genao on 11-19-2024 Neutrophils/100 WBC (Bld) 84.9 % High 47-70 [facility] Nucleated red blood cell per centageOrdered By: Kevin Genao on 11-19-2024 Nucleated RBC/100 WBC (Bld) [Ratio] 0 % 0-5 [facility] Platelet countOrdered By: Derian Genao on 11-19-2024 Platelets (Bld) [#/Vol] 227 10*3/uL 150-450 [facility] Potassium measurement (mass/ volume)Ordered By: Kevin Genao on 11-19-2024 Potassium (Unsp spec) [Mass/Vol] 3.7 mmol/L 3.3-5.1 [facility] RBC Auto (Bld) [#/Vol]Ordere d By: Kevin Genao on 11-19-2024 RBC (Bld) [#/Vol] 4.43 10*6/uL Low 4.6-6.2 [facility] Serum creatinine measurement (mass/volume)Ordered By: Kevin Genao on 11-19-2024 Creatinine [Mass/Vol] 0.98 mg/dL 0.70-1.20 [facility] Serum globulin measurementOr dered By: Kevin Genao on 11-19-2024 Globulin (S) [Mass/Vol] 2.4 g/dL 2.2-4.2 [facility] Serum glucose measurement (m ass/volume)Ordered By: Kevin Genao on 11-19-2024 Glucose [Mass/Vol] 136 mg/dL High 70-99 [facility] Serum or plasma alanine gibson otransferase (ALT) measurementOrdered By: Kevin Genao on 11-19-2024 ALT [Catalytic activity/Vol] 126 U/L High <47 [facility] Serum or plasma albumin zac urement (mass/volume)Ordered By: Kevin Genao on 11-19-2024 Albumin [Mass/Vol] 4.3 g/dL 3.4-4.8 [facility] Serum or plasma alkaline rafa sphatase measurementOrdered By: Kevin Genao on 11-19-2024 ALP [Catalytic activity/Vol] 106 U/L 40-129 [facility] Serum or plasma calcium zac urement (mass/volume)Ordered By: Kevin Genao on 11-19-2024 Calcium [Mass/Vol] 9.2 mg/dL 7.6-11.0 [facility] Serum or plasma urea nitroge n measurement (mass/volume)Ordered By: Kevin Genao on 11-19-2024 Urea nitrogen [Mass/Vol] 17 mg/dL 4-19 [facility] Sodium levelOrdered By: Aristeo Genao on 11-19-2024 Sodium [Moles/Vol] 130 mmol/L Low 133-145 [facility] Total proteinOrdered By: Trice Genao on 11-19-2024 Protein [Mass/Vol] 6.7 g/dL 5.9-8.4 [facility] Troponin T.cardiac [Mass/vol ume] in Serum or Plasma by High sensitivity methodOrdered By: Kevin Genao on 11-19-2024 Troponin T.cardiac High sensitivity method [Mass/Vol] 10 ng/L <22 [facility] White blood cell (WBC) count Ordered By: Kevin Genao on 11-19-2024 WBC (Bld) [#/Vol] 16.5 10*3/uL High 4.4-11.0 [facility] Neurology Visit Reporton Neurology Visit Report [facility] [address], [address] [place] [address] OFFICE VISIT Date of Service: 11/08/24 MR#: [id number] Acct: [id number] Name: FAHAD DE LEON Rep #: [id number] : [id number] Provider: Dr. Tuan vo MD Age/Sex: 69/M Location: [facility] Status: Signed [facility] Chief Complaint: Details: Interim History: Fahad returns for follow-up. He has a history of COPD, hypothyroidism, alcoholism (he reduced his alcohol consumption in 2022), hypertension, fatty liver, hyperlipidemia, bilateral cataract surgery (2021), and essential tremor. He has been experiencing [...] common c (more content not included)... Normal [facility] Urine Sodiumon 07-12-2024 Sodium (U) [Moles/Vol] 130 mmol/L Normal Not Establ. [facility] Comment on above: Performed By: #### L [id number] #### [facility] [address] [place], [address] Urine sodium measurement (mo les/volume)Ordered By: Tina Sutherland on 07-12-2024 Sodium (U) [Moles/Vol] 130 mmol/L Not Establ. [facility] Absolute neutrophil countOrd ered By: Gosia Delaney on 06-21-2024 Neutrophils (Bld) [#/Vol] 5.6 10*3/uL 2.0-7.7 [facility] Albumin to globulin ratioOrd ered By: Gosia Delaney on 06-21-2024 Albumin/Globulin [Mass ratio] 1.1 {ratio} 0.9-2.4 [facility] Basophil percentageOrdered B y: Gosia Delaney on 06-21-2024 Basophils/100 WBC (Bld) 0.5 % 0-1 [facility] Bilirubin, totalOrdered By: Gosia Delaney on 06-21-2024 Bilirubin [Mass/Vol] 0.60 mg/dL 0.20-1.00 [facility] Comment on above: For patients on eltr ombopag therapy, use of Dimension [place] TBIL is not recommended. Blood urea nitrogen (BUN)/cr eatinine ratioOrdered By: Gosia Delaney on 06-21-2024 Urea nitrogen/Creatinine [Mass ratio] 12.2 mg/mg 10-20 [facility] CBC W/Diff, Automatedon 06-10 Absolute Lymph 2.18 X10 3/uL Normal 0.83-4.51 [facility] Comment on above: Order Comment: Order Date: 01/13/24 Order Info: 2955-3 - GEORGE Performed By: #### [id number] #### [facility] [address] [place], [address] Absolute Neut 5.6 X10 3/uL Normal 2.0-7.7 [facility] Comment on above: Order Comment: Order Date: 01/13/24 Order Info: 2955-3 - GEROGE Performed By: #### [id number] #### [facility] [address] [place], [address] Basophils/100 WBC (Bld) 0.5 % Normal 0-1 [facility] Comment on above: Order Comment: Order Date: 01/13/24 Order Info: 2955-3 - GEORGE Performed By: #### L [id number] #### [facility] [address] [place], [address] Eosinophils/100 WBC (Bld) 2.6 % Normal 0-5 [facility] Comment on above: Order Comment: Order Date: 01/13/24 Order Info: 2955-3 - GEORGE Performed By: #### L [id number] #### [facility] [address] [place], [address] Erythrocyte distribution width (RBC) [Ratio] 13.2 % Normal 11.6-14.6 [facility] Comment on above: Order Comment: Order Date: 01/13/24 Order Info: 2955-3 - GEORGE Performed By: #### L [id number] #### [facility] [address] [place], [address] Hematocrit (Bld) [Volume fraction] 43.8 % Normal 40-54 [facility] Comment on above: Order Comment: Order Date: 01/13/24 Order Info: 2955-3 - GEORGE Performed By: #### L [id number] #### [facility] [address] [place], [address] Hemoglobin (Bld) [Mass/Vol] 14.9 g/dL Normal 13.0-16.5 [facility] Comment on above: Order Comment: Order Date: 01/13/24 Order Info: 2955-3 - GEORGE Performed By: #### L [id number] #### [facility] [address] [place], [address] IG% 0.300 Normal 0.0-0.9 [facility] Comment on above: Order Comment: Order Date: 01/13/24 Order Info: 2955-3 - GEORGE Result Comment: IG% - Immature Granulocytes (promyelocytes, myelocytes and metamyelocytes) > 1% indicates that a LEFT SHIFT is Present. Performed By: #### L [id number] #### [facility] [address] [place], [address] Lymphocytes/100 WBC (Bld) 24.9 % Normal 19-41 [facility] Comment on above: Order Comment: Order Date: 01/13/24 Order Info: 2955-3 - GEORGE Performed By: #### L [id number] #### [facility] [address] [place], [address] MCH (RBC) [Entitic mass] 31.3 pg Normal 27.0-32.0 [facility] Comment on above: Order Comment: Order Date: 01/13/24 Order Info: 2955-3 - GEORGE Performed By: #### L [id number] #### [facility] [address] [place], [address] MCHC (RBC) [Mass/Vol] 34.0 g/dL Normal 32-36 [facility] Comment on above: Order Comment: Order Date: 01/13/24 Order Info: 2955-3 - GEORGE Performed By: #### L [id number] #### [facility] [address] [place], [address] MCV (RBC) [Entitic vol] 92.0 fL Normal 80-94 [facility] Comment on above: Order Comment: Order Date: 01/13/24 Order Info: 2955-3 - GEORGE Performed By: #### L [id number] #### [facility] [address] [place], [address] Monocytes/100 WBC (Bld) 7.9 % Normal 0-10 [facility] Comment on above: Order Comment: Order Date: 01/13/24 Order Info: 2955-3 - GEORGE Performed By: #### L [id number] #### [facility] [address] [place], [address] Neutrophils/100 WBC (Bld) 63.8 % Normal 47-70 [facility] Comment on above: Order Comment: Order Date: 01/13/24 Order Info: 2955-3 - GEORGE Performed By: #### L [id number] #### [facility] [address] [place], [address] Nucleated RBC (Bld) [#/Vol] 0 10*3/uL Normal 0-5 [facility] Comment on above: Order Comment: Order Date: 01/13/24 Order Info: 2955-3 - GEORGE Performed By: #### L [id number] #### [facility] [address] [place], [address] Platelet mean volume (Bld) [Entitic vol] 11.0 fL Normal 6.2-12.0 [facility] Comment on above: Order Comment: Order Date: 01/13/24 Order Info: 2955-3 - GEORGE Performed By: #### L [id number] #### [facility] [address] [place], [address] Platelets (Bld) [#/Vol] 245 10*3/uL Normal 150-450 [facility] Comment on above: Order Comment: Order Date: 01/13/24 Order Info: 2955-3 - GEORGE Performed By: #### L [id number] #### [facility] [address] [place], [address] RBC (Bld) [#/Vol] 4.76 10*6/uL Normal 4.6-6.2 [facility] Comment on above: Order Comment: Order Date: 01/13/24 Order Info: 2955-3 - GEORGE Performed By: #### L [id number] #### [facility] [address] [place], [address] RDW SD 45.3 fl High 35.1-43.9 [facility] Comment on above: Order Comment: Order Date: 01/13/24 Order Info: 2955-3 - GEORGE Performed By: #### L [id number] #### [facility] [address] [place], [address] WBC (Bld) [#/Vol] 8.8 10*3/uL Normal 4.4-11.0 [facility] Comment on above: Order Comment: Order Date: 01/13/24 Order Info: 2955-3 - GEORGE Performed By: #### L [id number] #### [facility] [address] [place], [address] Carbon dioxide measurementOr dered By: Gosia Delaney on 06-21-2024 CO2 [Moles/Vol] 27.0 mmol/L 21.0-32.0 [facility] Chloride measurementOrdered By: Gosia Delaney on 06-21-2024 Chloride [Moles/Vol] 97 mmol/L Low 98-107 [facility] Comprehensive Metabolic Prof ilon 06-21-2024 Albumin [Mass/Vol] 4.1 g/dL Normal 3.2-5.0 [facility] Comment on above: Order Comment: Order Date: 01/13/24 Order Info: 2955-3 - GEORGE Performed By: #### L [id number] #### [facility] [address] [place], [address] Albumin/Globulin [Mass ratio] 1.1 {ratio} Normal 0.9-2.4 [facility] Comment on above: Order Comment: Order Date: 01/13/24 Order Info: 2955-3 - GEORGE Performed By: #### L [id number] #### [facility] [address] [place], [address] ALK P 74 U/L Normal 45-117 [facility] Comment on above: Order Comment: Order Date: 01/13/24 Order Info: 2955-3 - GEORGE Performed By: #### L [id number] #### [facility] [address] [place], [address] ALT [Catalytic activity/Vol] 27 U/L Normal 16-61 [facility] Comment on above: Order Comment: Order Date: 01/13/24 Order Info: 2955-3 - GEORGE Performed By: #### L [id number] #### [facility] [address] [place], [address] AST [Catalytic activity/Vol] 21 U/L Normal 15-37 [facility] Comment on above: Order Comment: Order Date: 01/13/24 Order Info: 2955-3 - GEORGE Performed By: #### L [id number] #### [facility] Laboratory [address] [place], [address] Bilirubin [Mass/Vol] 0.60 mg/dL Normal 0.20-1.00 [facility] Comment on above: Order Comment: Order Date: 01/13/24 Order Info: 2955-3 - GEORGE Result Comment: For patients on eltrombopag therapy, use of Dimension [place] TBIL is not recommended. Performed By: #### L 501.5500 #### [facility] [address] [place], [address] BUN/CRE 12.2 RATIO Normal 10-20 [facility] Comment on above: Order Comment: Order Date: 01/13/24 Order Info: 2955-3 - GEORGE Performed By: #### L 501.5500 #### [facility] [address] [place], [address] CA,Total 9.3 mg/dL Normal 8.5-10.1 [facility] Comment on above: Order Comment: Order Date: 01/13/24 Order Info: 2955-3 - GEORGE Performed By: #### L 501.5500 #### [facility] [address] [place], [address] Chloride [Moles/Vol] 97 mmol/L Low 98-107 [facility] Comment on above: Order Comment: Order Date: 01/13/24 Order Info: 2955-3 - GEORGE Performed By: #### L [id number] #### [facility] [address] [place], [address] CO2 [Moles/Vol] 27.0 mmol/L Normal 21.0-32.0 [facility] Comment on above: Order Comment: Order Date: 01/13/24 Order Info: 2955-3 - GEORGE Performed By: #### L 501.5500 #### [facility] [address] [place], [place], [address] Creatinine [Mass/Vol] 1.23 mg/dL Normal 0.70-1.30 [facility] Comment on above: Order Comment: Order Date: 01/13/24 Order Info: 2955-3 - GEORGE Result Comment: The validity of the calculated GFR GFRAA in patients over 70 years has not been determined. Clinical correlation is essential. Performed By: #### L 501.5500 #### [facility] [address] [place], [address] EST GFR - AA 75 mL/min Normal >60 [facility] Comment on above: Order Comment: Order Date: 01/13/24 Order Info: 2955-3 - GEORGE Result Comment: Afri can Guatemalan GFR Calc Performed By: #### L 501.5500 #### [facility] [address] [place], [address] GAP 8 Normal 5-15 [facility] Comment on above: Order Comment: Order Date: 01/13/24 Order Info: 2955-3 - GEORGE Performed By: #### L 501.5500 #### [facility] [address] [place], [address] GFR/1.73 sq M.predicted among non-blacks MDRD (S/P/Bld) [Vol rate/Area] 62 mL/min/{1.73_m2} Normal >60 [facility] Comment on above: Order Comment: Order Date: 01/13/24 Order Info: 2955-3 - GEORGE Result Comment: Non- GFR Calc Performed By: #### L 501.5500 #### [facility] [address] [place], [address] Globulin (S) [Mass/Vol] 3.6 g/dL Normal 2.2-4.2 [facility] Comment on above: Order Comment: Order Date: 01/13/24 Order Info: 2955-3 - GEORGE Performed By: #### L 501.5500 #### [facility] [address] [place], [address] Glucose [Mass/Vol] 95 mg/dL Normal 74-106 [facility] Comment on above: Order Comment: Order Date: 01/13/24 Order Info: 2955-3 - GEORGE Performed By: #### L [id number] #### [facility] [address] [place], [address] Potassium [Moles/Vol] 4.3 mmol/L Normal 3.5-5.1 [facility] Comment on above: Order Comment: Order Date: 01/13/24 Order Info: 2955-3 - GEORGE Performed By: #### L [id number] #### [facility] [address] [place], [address] Sodium [Moles/Vol] 132 mmol/L Low 136-145 [facility] Comment on above: Order Comment: Order Date: 01/13/24 Order Info: 2955-3 - GEORGE Performed By: #### L 501.5500 #### [facility] [address] [place], [address] T PROT 7.7 g/dL Normal 6.4-8.2 [facility] Comment on above: Order Comment: Order Date: 01/13/24 Order Info: 2955-3 - GEORGE Performed By: #### L 501.5500 #### [facility] [address] [place], [address] Urea nitrogen [Mass/Vol] 15 mg/dL Normal 7-18 [facility] Comment on above: Order Comment: Order Date: 01/13/24 Order Info: 2955-3 - GEORGE Performed By: #### L 501.5500 #### [facility] [address] [place], [address] Eosinophil percentageOrdered By: Gosia Delaney on 06-21-2024 Eosinophils/100 WBC (Bld) 2.6 % 0-5 [facility] Erythrocyte distribution wid th ratioOrdered By: Gosia Delaney on 06-21-2024 Erythrocyte distribution width (RBC) [Ratio] 13.2 % 11.6-14.6 [facility] Erythrocyte distribution wid th standard deviationOrdered By: Gosia Delaney on 06-21-2024 Erythrocyte distribution width (RBC) [Entitic vol] 45.3 fL High 35.1-43.9 [facility] Estimated glomerular filtrat ion rate (GFR) AmericanOrdered By: Gosia Delaney on 06-21-2024 Estimated GFR (MDRD) Amer 75 mL/min >60 [facility] Comment on above: GFR Calc Glomerular filtration rate ( GFR) estimationOrdered By: Gosia Delaney on 06-21-2024 Estimated GFR (MDRD) Non-Af Amer 62 mL/min >60 [facility] Comment on above: Non- GFR Calc Glucose measurementOrdered B y: Gosia Delaney on 06-21-2024 Glucose [Mass/Vol] 95 mg/dL 74-106 [facility] Hematocrit Auto (Bld) [Volum e fraction]Ordered By: Gosia Delaney on 06-21-2024 Hematocrit (Bld) [Volume fraction] 43.8 % 40-54 [facility] Hemoglobin measurementOrdere d By: Gosia Delaney on 06-21-2024 Hemoglobin (Bld) [Mass/Vol] 14.9 g/dL 13.0-16.5 [facility] Immature granulocytes/100 WB C Auto (Bld)Ordered By: Gosia Delaney on 06-21-2024 Immature granulocytes/100 WBC (Bld) 0.300 % 0.0-0.9 [facility] Comment on above: IG% - Immature Granu locytes (promyelocytes, myelocytes and metamyelocytes) > 1% indicates that a LEFT SHIFT is Present. Laboratory - Chemistry and C hemistry - challengeOrdered By: Gosia Delaney on 06-21-2024 AST [Catalytic activity/Vol] 21 U/L 15-37 [facility] Lymphocytes Auto (Unsp spec) [#/Vol]Ordered By: Gosia Delaney on 06-21-2024 Lymphocytes (Bld) [#/Vol] 2.18 10*3/uL 0.83-4.5 1 [facility] Lymphocytes/100 WBC Auto (Un sp spec)Ordered By: Gosia Delaney on 06-21-2024 Lymphocytes/100 WBC (Bld) 24.9 % 19-41 [facility] MCV (mean corpuscular volume ) determinationOrdered By: Gosia Delaney on 06-21-2024 MCV (RBC) [Entitic vol] 92.0 fL 80-94 [facility] Magnesiumon 06-21-2024 Magnesium [Mass/Vol] 2.2 mg/dL Normal 1.6-2.6 [facility] Comment on above: Order Comment: Order Date: 01/13/24 Order Info: 2955-3 - GEORGE Performed By: #### L [id number] #### [facility] [address] [place] [address], [address] Magnesium measurementOrdered By: Gosia Delaney on 06-21-2024 Magnesium [Mass/Vol] 2.2 mg/dL 1.6-2.6 [facility] Mean corpuscular hemoglobin (MCH) determinationOrdered By: Gosia Delaney on 06-21-2024 MCH (RBC) [Entitic mass] 31.3 pg 27.0-32.0 [facility] Mean corpuscular hemoglobin concentration (MCHC) determinationOrdered By: Gosia Delaney on 06-21-2024 MCHC (RBC) [Mass/Vol] 34.0 g/dL 32-36 [facility] Mean platelet volume determi nationOrdered By: Gosia Delaney on 06-21-2024 Platelet mean volume (Bld) [Entitic vol] 11.0 fL 6.2-12.0 [facility] Microalb:Creat Ratio,Random URon 06-21-2024 Creatinine [Mass/Vol] 78.60 mg/dL Normal NO RAN GE EST. [facility] Comment on above: Order Comment: Order Date: 01/13/24 Order Info: 2955-3 - GEORGE Performed By: #### L [id number] #### [facility] [address] [place], [place], [address] MALB:CRE 38.8 mg/g CRE High <30 mg/g CRE [facility] Comment on above: Order Comment: Order Date: 01/13/24 Order Info: 2955-3 - GEORGE Performed By: #### L [id number] #### [facility] [address] [place], [place], [address] MICROALBUMIN,UR 30.5 mg/L Normal NO RANGE EST. [facility] Comment on above: Order Comment: Order Date: 01/13/24 Order Info: 2955-3 - GEORGE Performed By: #### L [id number] #### [facility] [address] [place], [place], [address] Monocyte percentageOrdered B y: Gosia Delaney on 06-21-2024 Monocytes/100 WBC (Bld) 7.9 % 0-10 [facility] Neutrophil percentageOrdered By: Gosia Delaney on 06-21-2024 Neutrophils/100 WBC (Bld) 63.8 % 47-70 [facility] Nucleated red blood cell per centageOrdered By: Gosia Delaney on 06-21-2024 Nucleated RBC/100 WBC (Bld) [Ratio] 0 % 0-5 [facility] Osmolality (U) [Osmolality]O rdered By: Gosia Delaney on 06-21-2024 Urine Osmolality 383 mOsm/KG >50 [facility] Comment on above: Normal Urine Referen ce Ranges Random: 50 - 1200 mOsm/kg H20 depending on fluid intake Random: >850 mOsm/kg after 12 hour fluid restriction 24 hour: ~300 - 900 mOsm/kg H2O Osmolality, Serumon 06-21-19 25 OSMOLALITY,SER 276 mOsm/KG Low 280-301 [facility] Comment on above: Order Comment: Order Date: 01/13/24 Order Info: 2955-3 - GEORGE Performed By: #### L [id number] #### [facility] [address] [place], [address] Osmolality, Urineon 06-21-19 25 OSMOLALITY,UR 383 mOsm/KG Normal [facility] Comment on above: Order Comment: Order Date: 01/13/24 Order Info: 2955-3 - GEORGE Result Comment: Normal Urine Reference Ranges Random: 50 - 1200 mOsm/kg H20 depending on fluid intake Random: >850 mOsm/kg after 12 hour fluid restriction 24 hour: 300 - 900 mOsm/kg H2O Performed By: #### L [id number] #### [facility] [address] [facility] [place], [address] Osmolality, serumOrdered By: Gosia Delaney on 06-21-2024 Serum Osmolality 276 mOsm/KG Low 280-301 [facility] Platelet countOrdered By: Joni Delaney on 06-21-2024 Platelets (Bld) [#/Vol] 245 10*3/uL 150-450 [facility] Potassium measurementOrdered By: Gosia Delaney on 06-21-2024 Potassium [Moles/Vol] 4.3 mmol/L 3.5-5.1 [facility] RBC Auto (Bld) [#/Vol]Ordere d By: Gosia Delaney on 06-21-2024 RBC (Bld) [#/Vol] 4.76 10*6/uL 4.6-6.2 [facility] Random urine microalbumin me asurementOrdered By: Gosia Delaney on 06-21-2024 Urine Random Microalbumin 30.5 mg/L NO RANGE EST. [facility] Serum anion gap measurementO rdered By: Gosia Delaney on 06-21-2024 Anion gap [Moles/Vol] 8 mmol/L 5-15 [facility] Serum globulin measurementOr dered By: Gosia Delaney on 06-21-2024 Globulin (S) [Mass/Vol] 3.6 g/dL 2.2-4.2 [facility] Serum or plasma alanine gibson otransferase (ALT) measurementOrdered By: Gosia Delaney on 06-21-2024 ALT [Catalytic activity/Vol] 27 U/L 16-61 [facility] Serum or plasma albumin zac urement (mass/volume)Ordered By: Gosia Delaney on 06-21-2024 Albumin [Mass/Vol] 4.1 g/dL 3.2-5.0 [facility] Serum or plasma alkaline rafa sphatase measurementOrdered By: Gosia Delaney on 06-21-2024 ALP [Catalytic activity/Vol] 74 U/L 45-117 [facility] Serum or plasma calcium zac urement (mass/volume)Ordered By: Gosia Delaney on 06-21-2024 Calcium [Mass/Vol] 9.3 mg/dL 8.5-10.1 [facility] Serum or plasma creatinine m easurement (mass/volume)Ordered By: Gosia Delaney on 06-21-2024 Creatinine [Mass/Vol] 1.23 mg/dL 0.70-1.30 [facility] Comment on above: The validity of the calculated GFR & GFRAA in patients over 70 years has not been determined. Clinical correlation is essential. Serum or plasma urea nitroge n measurement (mass/volume)Ordered By: Gosia Delaney on 06-21-2024 Urea nitrogen [Mass/Vol] 15 mg/dL 7-18 [facility] Sodium levelOrdered By: Gosia Delaney on 06-21-2024 Sodium [Moles/Vol] 132 mmol/L Low 136-145 [facility] Sodium urOrdered By: Gosia ugadle on 06-21-2024 Sodium (U) [Moles/Vol] 48 mmol/L Not Establ. [facility] TSH QnOrdered By: Gosia Delaney on 06-21-2024 Thyroid Stimulating Hormone (TSH) 2.900 uIU/mL 0.358-3.740 [facility] Thyroid Stim Hormone (TSH)on 06-21-2024 TSH 2.900 uIU/mL Normal 0.358-3.740 [facility] Comment on above: Order Comment: Order Date: 01/13/24 Order Info: 2955-3 - GEORGE Performed By: #### L [id number] #### [facility] [address] [place], [address] Total proteinOrdered By: Julia Delaney on 06-21-2024 Protein [Mass/Vol] 7.7 g/dL 6.4-8.2 [facility] Urine Sodiumon 06-21-2024 Sodium (U) [Moles/Vol] 48 mmol/L Normal Not Establ. [facility] Comment on above: Order Comment: Order Date: 01/13/24 Order Info: 2955-3 - GEORGE Performed By: #### L [id number] #### [facility] [address] [place], [place], [address] Urine albumin/creatinine rat io for detection of microalbuminuriaOrdered By: Gosia Delaney on 06-21-2024 Urine Microalbumin/Creatinine Ratio 38.8 mg/g CRE High <30 [facility] Urine creatinine measurement (mass/volume)Ordered By: Gosia Delaney on 06-21-2024 Creatinine (U) [Mass/Vol] 78.60 mg/dL NO RANGE EST. [facility] White blood cell (WBC) count Ordered By: Gosia Delaney on 06-21-2024 WBC (Bld) [#/Vol] 8.8 10*3/uL 4.4-11.0 [facility] Osmolality, Urineon 01-19-20 24 OSMOLALITY,UR 551 mOsm/KG Normal [facility] Comment on above: Order Comment: Order Date: 01/13/24 Order Info: 2955-3 - GEORGE Result Comment: Normal Urine Reference Ranges Random: 50 - 1200 mOsm/kg H20 depending on fluid intake Random: >850 mOsm/kg after 12 hour fluid restriction 24 hour: 300 - 900 mOsm/kg H2O Performed By: #### L 501.5500 #### [facility] [address] [place], [place], [address] Urine Sodiumon 01-19-2024 Sodium (U) [Moles/Vol] 87 mmol/L Normal Not Establ. [facility] Comment on above: Order Comment: Order Date: 01/13/24 Order Info: 2955-3 - GEORGE Performed By: #### L [id number] #### [facility] [address] [place], [address] L501.5101on 01-15-2024 GGTP 41 IU/L Normal 0-65 [facility] Comment on above: Order Comment: Order Date: 01/13/24 Order Info: 2955-3 - GEORGE Result Comment: Perf ormed at: [facility] [address] [id number] Database Technician: Aquilino Gómez PhD, Phone: [phone] Performed By: #### L 501.5500 #### [facility] [address] [place], [address] Comprehensive Metabolic Prof ilon 01-14-2024 Albumin [Mass/Vol] 3.9 g/dL Normal 3.2-5.0 [facility] Comment on above: Order Comment: Order Date: 01/13/24 Order Info: 0786-1 - CMP Performed By: #### L 500.4050, L501.7300, L501.5101 #### [facility] [address] [place], [address] Albumin/Globulin [Mass ratio] 1.1 {ratio} Normal 0.9-2.4 [facility] Comment on above: Order Comment: Order Date: 01/13/24 Order Info: 0786-1 - CMP Performed By: #### L 500.4050, L501.7300, L501.5101 #### [facility] [address] [place], [address] ALK P 90 U/L Normal 45-117 [facility] Comment on above: Order Comment: Order Date: 01/13/24 Order Info: 0786-1 - CMP Performed By: #### L 500.4050, L501.7300, L501.5101 #### [facility] [address] [place], [address] ALT [Catalytic activity/Vol] 28 U/L Normal 16-61 [facility] Comment on above: Order Comment: Order Date: 01/13/24 Order Info: 0786-1 - CMP Performed By: #### L 500.4050, L501.7300, L501.5101 #### [facility] [address] [place], [address] AST [Catalytic activity/Vol] 17 U/L Normal 15-37 [facility] Comment on above: Order Comment: Order Date: 01/13/24 Order Info: 0786-1 - CMP Performed By: #### L 500.4050, L501.7300, L501.5101 #### [facility] [address] [place], [address] Bilirubin [Mass/Vol] 0.50 mg/dL Normal 0.20-1.00 [facility] Comment on above: Order Comment: Order Date: 01/13/24 Order Info: 0786-1 - CMP Result Comment: For patients on eltrombopag therapy, use of Dimension [place] TBIL is not recommended. Performed By: #### L 500.4050, L501.7300, L501.5101 #### [facility] [address] [place], [address] BUN/CRE 13.6 RATIO Normal 10-20 [facility] Comment on above: Order Comment: Order Date: 01/13/24 Order Info: 0786-1 - CMP Performed By: #### L 500.4050, L501.7300, L501.5101 #### [facility] [address] [place], [address] CA,Total 9.8 mg/dL Normal 8.5-10.1 [facility] Comment on above: Order Comment: Order Date: 01/13/24 Order Info: 0786-1 - CMP Performed By: #### L 500.4050, L501.7300, L501.5101 #### [facility] [address] [place], [address] Chloride [Moles/Vol] 100 mmol/L Normal 98-107 [facility] Comment on above: Order Comment: Order Date: 01/13/24 Order Info: 0786-1 - CMP Performed By: #### L 500.4050, L501.7300, L501.5101 #### [facility] [address] [place], [address] CO2 [Moles/Vol] 26.0 mmol/L Normal 21.0-32.0 [facility] Comment on above: Order Comment: Order Date: 01/13/24 Order Info: 0786-1 - CMP Performed By: #### L 500.4050, L501.7300, L501.5101 #### [facility] [address] [place], [address] Creatinine [Mass/Vol] 1.25 mg/dL Normal 0.70-1.30 [facility] Comment on above: Order Comment: Order Date: 01/13/24 Order Info: 0786- - CMP Result Comment: The validity of the calculated GFR GFRAA in patients over 70 years has not been determined. Clinical correlation is essential. Performed By: #### L 500.4050, L501.7300, L501.5101 #### [facility] [address] [place], [address] EST GFR - AA 73 mL/min Normal >60 [facility] Comment on above: Order Comment: Order Date: 01/13/24 Order Info: 0786- - CMP Result Comment: Afri can Guatemalan GFR Calc Performed By: #### L 500.4050, L501.7300, L501.5101 #### [facility] [address] [place], [address] GAP 7 Normal 5-15 [facility] Comment on above: Order Comment: Order Date: 01/13/24 Order Info: 0786-1 - CMP Performed By: #### L 500.4050, L501.7300, L501.5101 #### [facility] [address] [place], [address] GFR/1.73 sq M.predicted among non-blacks MDRD (S/P/Bld) [Vol rate/Area] 61 mL/min/{1.73_m2} Normal >60 [facility] Comment on above: Order Comment: Order Date: 01/13/24 Order Info: 0786-1 - CMP Result Comment: Non- GFR Calc Performed By: #### L 500.4050, L501.7300, L501.5101 #### [facility] [address] [place], [address] Globulin (S) [Mass/Vol] 3.5 g/dL Normal 2.2-4.2 [facility] Comment on above: Order Comment: Order Date: 01/13/24 Order Info: 0786-1 - CMP Performed By: #### L 500.4050, L501.7300, L501.5101 #### [facility] [address] [place], [address] Glucose [Mass/Vol] 100 mg/dL Normal 74-106 [facility] Comment on above: Order Comment: Order Date: 01/13/24 Order Info: 0786-1 - CMP Result Comment: Fast ing Glucose result from 100 to 125 mg/dL suggests IMPAIRED HOMEOSTASIS per A.D.A. criteria. Performed By: #### L 500.4050, L501.7300, L501.5101 #### [facility] [address] [place], [address] Potassium [Moles/Vol] 3.9 mmol/L Normal 3.5-5.1 [facility] Comment on above: Order Comment: Order Date: 01/13/24 Order Info: 0786-1 - CMP Performed By: #### L 500.4050, L501.7300, L501.5101 #### [facility] [address] [place], [address] Sodium [Moles/Vol] 133 mmol/L Low 136-145 [facility] Comment on above: Order Comment: Order Date: 01/13/24 Order Info: 0786-1 - CMP Performed By: #### L 500.4050, L501.7300, L501.5101 #### [facility] [address] [place], [address] T PROT 7.4 g/dL Normal 6.4-8.2 [facility] Comment on above: Order Comment: Order Date: 01/13/24 Order Info: 0786-1 - CMP Performed By: #### L 500.4050, L501.7300, L501.5101 #### [facility] [address] [place], [address] Urea nitrogen [Mass/Vol] 17 mg/dL Normal 7-18 [facility] Comment on above: Order Comment: Order Date: 01/13/24 Order Info: 0786-1 - CMP Performed By: #### L 500.4050, L501.7300, L501.5101 #### [facility] [address] [place], [address] Osmolality, Serumon 01-14-20 24 OSMOLALITY,SER 289 mOsm/KG Normal 280-301 [facility] Comment on above: Order Comment: Order Date: 01/13/24 Order Info: 2692-2 - OS Performed By: #### L 500.4050, L501.7300, L501.5101 #### [facility] [address] [place], [address] CBC W/Diff, Automatedon 12-08 Absolute Lymph 1.85 X10 3/uL Normal 0.83-4.51 [facility] Comment on above: Order Comment: Order Date: 12/20/23 Order Info: 0184-1 - CBCD Comments: cc copy to Dr. Kayli Polo Performed By: #### L 100.0100, L500.4050, L506.0400, L500.4100, L501.9520 #### [facility] [address] [place], [address] Absolute Neut 4.5 X10 3/uL Normal 2.0-7.7 [facility] Comment on above: Order Comment: Order Date: 12/20/23 Order Info: 0184-1 - CBCD Comments: cc copy to Dr. Kayli Polo Performed By: #### L 100.0100, L500.4050, L506.0400, L500.4100, L501.9520 #### [facility] [address] [place], [address] Basophils/100 WBC (Bld) 0.7 % Normal 0-1 [facility] Comment on above: Order Comment: Order Date: 12/20/23 Order Info: 0184-1 - CBCD Comments: cc copy to Dr. Kayli Polo Performed By: #### L 100.0100, L500.4050, L506.0400, L500.4100, L501.9520 #### [facility] [address] [place], [address] Eosinophils/100 WBC (Bld) 4.1 % Normal 0-5 [facility] Comment on above: Order Comment: Order Date: 12/20/23 Order Info: 0184-1 - CBCD Comments: cc copy to Dr. Kayli Polo Performed By: #### L 100.0100, L500.4050, L506.0400, L500.4100, L501.9520 #### [facility] [address] [place], [address] Erythrocyte distribution width (RBC) [Ratio] 13.7 % Normal 11.6-14.6 [facility] Comment on above: Order Comment: Order Date: 12/20/23 Order Info: 0184-1 - CBCD Comments: cc copy to Dr. Kayli Polo Performed By: #### L 100.0100, L500.4050, L506.0400, L500.4100, L501.9520 #### [facility] [address] [place], [address] Hematocrit (Bld) [Volume fraction] 44.4 % Normal 40-54 [facility] Comment on above: Order Comment: Order Date: 12/20/23 Order Info: 0184-1 - CBCD Comments: cc copy to Dr. Kayli Polo Performed By: #### L 100.0100, L500.4050, L506.0400, L500.4100, L501.9520 #### [facility] [address] [place], [address] Hemoglobin (Bld) [Mass/Vol] 14.9 g/dL Normal 13.0-16.5 [facility] Comment on above: Order Comment: Order Date: 12/20/23 Order Info: 0184-1 - CBCD Comments: cc copy to Dr. Kayli Polo Performed By: #### L 100.0100, L500.4050, L506.0400, L500.4100, L501.9520 #### [facility] [address] [place], [address] IG% 0.300 Normal 0.0-0.9 [facility] Comment on above: Order Comment: Order Date: 12/20/23 Order Info: 0184-1 - CBCD Comments: cc copy to Dr. Kayli Polo Result Comment: IG% - Immature Granulocytes (promyelocytes, myelocytes and metamyelocytes) > 1% indicates that a LEFT SHIFT is Present. Performed By: #### L 100.0100, L500.4050, L506.0400, L500.4100, L501.9520 #### [facility] [address] [place], [address] Lymphocytes/100 WBC (Bld) 25.3 % Normal 19-41 [facility] Comment on above: Order Comment: Order Date: 12/20/23 Order Info: 0184-1 - CBCD Comments: cc copy to Dr. Kayli Polo Performed By: #### L 100.0100, L500.4050, L506.0400, L500.4100, L501.9520 #### [facility] [address] [place], [address] MCH (RBC) [Entitic mass] 30.8 pg Normal 27.0-32.0 [facility] Comment on above: Order Comment: Order Date: 12/20/23 Order Info: 0184-1 - CBCD Comments: cc copy to Dr. Kayli Polo Performed By: #### L 100.0100, L500.4050, L506.0400, L500.4100, L501.9520 #### [facility] [address] [place], [address] MCHC (RBC) [Mass/Vol] 33.6 g/dL Normal 32-36 [facility] Comment on above: Order Comment: Order Date: 12/20/23 Order Info: 0184-1 - CBCD Comments: cc copy to Dr. Kayli Polo Performed By: #### L 100.0100, L500.4050, L506.0400, L500.4100, L501.9520 #### [facility] [address] [place], [address] MCV (RBC) [Entitic vol] 91.9 fL Normal 80-94 [facility] Comment on above: Order Comment: Order Date: 12/20/23 Order Info: [id number] - CBCD Comments: cc copy to Dr. Kayli Polo Performed By: #### L 100.0100, L500.4050, L506.0400, L500.4100, L501.9520 #### [facility] [address] [place], [address] Monocytes/100 WBC (Bld) 8.5 % Normal 0-10 [facility] Comment on above: Order Comment: Order Date: 12/20/23 Order Info: [id number] - CBCD Comments: cc copy to Dr. Kayli Polo Performed By: #### L 100.0100, L500.4050, L506.0400, L500.4100, L501.9520 #### [facility] [address] [place], [address] Neutrophils/100 WBC (Bld) 61.1 % Normal 47-70 [facility] Comment on above: Order Comment: Order Date: 12/20/23 Order Info: [id number] - CBCD Comments: cc copy to Dr. Kayli Polo Performed By: #### L 100.0100, L500.4050, L506.0400, L500.4100, L501.9520 #### [facility] [address] [place], [address] Nucleated RBC (Bld) [#/Vol] 0 10*3/uL Normal 0-5 [facility] Comment on above: Order Comment: Order Date: 12/20/23 Order Info: [id number] - CBCD Comments: cc copy to Dr. Kayli Polo Performed By: #### L 100.0100, L500.4050, L506.0400, L500.4100, L501.9520 #### [facility] [address] [place], [address] Platelet mean volume (Bld) [Entitic vol] 10.2 fL Normal 6.2-12.0 [facility] Comment on above: Order Comment: Order Date: 12/20/23 Order Info: [id number] - CBCD Comments: cc copy to Dr. Kayli Polo Performed By: #### L 100.0100, L500.4050, L506.0400, L500.4100, L501.9520 #### [facility] [address] [place], [address] Platelets (Bld) [#/Vol] 269 10*3/uL Normal 150-450 [facility] Comment on above: Order Comment: Order Date: 12/20/23 Order Info: [id number] - CBCD Comments: cc copy to Dr. Kayli Polo Performed By: #### L 100.0100, L500.4050, L506.0400, L500.4100, L501.9520 #### [facility] [address] [place], [address] RBC (Bld) [#/Vol] 4.83 10*6/uL Normal 4.6-6.2 [facility] Comment on above: Order Comment: Order Date: 12/20/23 Order Info: [id number]- - CBCD Comments: cc copy to Dr. Kayli Polo Performed By: #### L 100.0100, L500.4050, L506.0400, L500.4100, L501.9520 #### [facility] [address] [place], [address] RDW SD 46.7 fl High 35.1-43.9 [facility] Comment on above: Order Comment: Order Date: 12/20/23 Order Info: [id number]- - CBCD Comments: cc copy to Dr. Kayli Polo Performed By: #### L 100.0100, L500.4050, L506.0400, L500.4100, L501.9520 #### [facility] [address] [place], [address] WBC (Bld) [#/Vol] 7.3 10*3/uL Normal 4.4-11.0 [facility] Comment on above: Order Comment: Order Date: 12/20/23 Order Info: [id number]- - CBCD Comments: cc copy to Dr. Kayli Polo Performed By: #### L 100.0100, L500.4050, L506.0400, L500.4100, L501.9520 #### [facility] [address] [place], [address] Comprehensive Metabolic Prof [facility] 12-20-2023 Albumin [Mass/Vol] 4.0 g/dL Normal 3.2-5.0 [facility] Comment on above: Order Comment: Order Date: 12/20/23 Order Info: [id number] - CMP Order Info: [id number] - LIPID Comments: cc copy to Dr. Kayli Polo Order Info: [id number] - TSH Order Info: 3024 - T4F cc copy to Dr. Kayli Polo Performed By: #### L 100.0100, L500.4050, L506.0400, L500.4100, L501.9520 #### [facility] [address] [place], [address] Albumin/Globulin [Mass ratio] 1.2 {ratio} Normal 0.9-2.4 [facility] Comment on above: Order Comment: Order Date: 12/20/23 Order Info: 86-1 - CMP Order Info: [id number] - LIPID Comments: cc copy to Dr. Kayli Polo Order Info: [id number] - TSH Order Info: 3023-11 T4F cc copy to Dr. Kayli Polo Performed By: #### L 100.0100, L500.4050, L506.0400, L500.4100, L501.9520 #### [facility] [address] [place], [address] ALK P 114 U/L Normal 45-117 [facility] Comment on above: Order Comment: Order Date: 12/20/23 Order Info: 785-05 - CMP Order Info: [id number] - LIPID Comments: cc copy to Dr. Kayli Polo Order Info: [id number] - TSH Order Info: 3023-11 T4F cc copy to Dr. Kayli Polo Performed By: #### L 100.0100, L500.4050, L506.0400, L500.4100, L501.9520 #### [facility] [address] [place], [address] ALT [Catalytic activity/Vol] 77 U/L High 16-61 [facility] Comment on above: Order Comment: Order Date: 12/20/23 Order Info: 86-1 - CMP Order Info: [id number] - LIPID Comments: cc copy to Dr. Kayli Polo Order Info: 3 - TSH Order Info: 3023-11 T4F cc copy to Dr. Kayli Polo Performed By: #### L 100.0100, L500.4050, L506.0400, L500.4100, L501.9520 #### [facility] [address] [place], [address] AST [Catalytic activity/Vol] 46 U/L High 15-37 [facility] Comment on above: Order Comment: Order Date: 12/20/23 Order Info: 86-1 - CMP Order Info: [id number] - LIPID Comments: cc copy to Dr. Kayli Polo Order Info: [id number] - TSH Order Info: 3023-11 T4F cc copy to Dr. Kayli Polo Performed By: #### L 100.0100, L500.4050, L506.0400, L500.4100, L501.9520 #### [facility] [address] [place], [address] Bilirubin [Mass/Vol] 0.60 mg/dL Normal 0.20-1.00 [facility] Comment on above: Order Comment: Order Date: 12/20/23 Order Info: 785-05 - CMP Order Info: [id number] - LIPID Comments: cc copy to Dr. Kayli Polo Order Info: [id number] - TSH Order Info: 3023-11 T4F cc copy to Dr. Kayli Polo Result Comment: For patients on eltrombopag therapy, use of Dimension [place] TBIL is not recommended. Performed By: #### L 100.0100, L500.4050, L506.0400, L500.4100, L501.9520 #### [facility] [address] [place], [address] BUN/CRE 17.8 RATIO Normal 10-20 [facility] Comment on above: Order Comment: Order Date: 12/20/23 Order Info: 785-1 - CMP Order Info: [id number] - LIPID Comments: cc copy to Dr. Kayli Polo Order Info: 3 - TSH Order Info: 3023-11 T4F cc copy to Dr. Kayli Polo Performed By: #### L 100.0100, L500.4050, L506.0400, L500.4100, L501.9520 #### [facility] [address] [place], [address] CA,Total 9.7 mg/dL Normal 8.5-10.1 [facility] Comment on above: Order Comment: Order Date: 12/20/23 Order Info: 86-1 - CMP Order Info: [id number] - LIPID Comments: cc copy to Dr. Kayli Polo Order Info: [id number] - TSH Order Info: 3023-11 T4F cc copy to Dr. Kayli Polo Performed By: #### L 100.0100, L500.4050, L506.0400, L500.4100, L501.9520 #### [facility] [address] [place], [address] Chloride [Moles/Vol] 99 mmol/L Normal 98-107 [facility] Comment on above: Order Comment: Order Date: 12/20/23 Order Info: 785-05 - CMP Order Info: [id number] - LIPID Comments: cc copy to Dr. Kayli Polo Order Info: [id number] - TSH Order Info: 3023-11 T4F cc copy to Dr. Kayli Polo Performed By: #### L 100.0100, L500.4050, L506.0400, L500.4100, L501.9520 #### [facility] [address] [place], [address] CO2 [Moles/Vol] 29.0 mmol/L Normal 21.0-32.0 [facility] Comment on above: Order Comment: Order Date: 12/20/23 Order Info: 1 - CMP Order Info: [id number] - LIPID Comments: cc copy to Dr. Kayli Polo Order Info: [id number] - TSH Order Info: 3023-11 T4F cc copy to Dr. Kayli Polo Performed By: #### L 100.0100, L500.4050, L506.0400, L500.4100, L501.9520 #### [facility] [address] [place], [address] Creatinine [Mass/Vol] 1.07 mg/dL Normal 0.70-1.30 [facility] Comment on above: Order Comment: Order Date: 12/20/23 Order Info: 785-05 - CMP Order Info: [id number] - LIPID Comments: cc copy to Dr. Kayli Polo Order Info: [id number] - TSH Order Info: 3023-11 T4 cc copy to Dr. Kayli Polo Result Comment: The validity of the calculated GFR GFRAA in patients over 70 years has not been determined. Clinical correlation is essential. Performed By: #### L 100.0100, L500.4050, L506.0400, L500.4100, L501.9520 #### [facility] [address] [place], [address] EST GFR - AA 88 mL/min Normal >60 [facility] Comment on above: Order Comment: Order Date: 12/20/23 Order Info: 785-05 - CMP Order Info: - LIPID Comments: cc copy to Dr. Kayli Polo Order Info: [id number] - TSH Order Info: 3023-[address] Kayli Polo Result Comment: Afri can [place] GFR Calc Performed By: #### L 100.0100, L500.4050, L506.0400, L500.4100, L501.9520 #### [facility] [address] [place], [address] GAP 4 Low 5-15 [facility] Comment on above: Order Comment: Order Date: 12/20/23 Order Info: 785-05 - CMP Order Info: [id number] - LIPID Comments: cc copy to Dr. Kayli Polo Order Info: [id number] - TSH Order Info: 3023-11 T4F cc copy to Dr. Kayli Polo Performed By: #### L 100.0100, L500.4050, L506.0400, L500.4100, L501.9520 #### [facility] [address] [place], [address] GFR/1.73 sq M.predicted among non-blacks MDRD (S/P/Bld) [Vol rate/Area] 73 mL/min/{1.73_m2} Normal >60 [facility] Comment on above: Order Comment: Order Date: 12/20/23 Order Info: 785-1 - CMP Order Info: [id number] - LIPID Comments: cc copy to Dr. Kayli Polo Order Info: [id number] - TSH Order Info: 3023-11 - T4F cc copy to Dr. Kayli Polo Result Comment: Non- GFR Calc Performed By: #### L 100.0100, L500.4050, L506.0400, L500.4100, L501.9520 #### [facility] [address] [place], [address] Globulin (S) [Mass/Vol] 3.3 g/dL Normal 2.2-4.2 [facility] Comment on above: Order Comment: Order Date: 12/20/23 Order Info: 785-05 - CMP Order Info: [id number] - LIPID Comments: cc copy to Dr. Kayli Polo Order Info: [id number] - TSH Order Info: 3023-11 T4F cc copy to Dr. Kayli Polo Performed By: #### L 100.0100, L500.4050, L506.0400, L500.4100, L501.9520 #### [facility] [address] [place], [address] Glucose [Mass/Vol] 104 mg/dL Normal 74-106 [facility] Comment on above: Order Comment: Order Date: 12/20/23 Order Info: 785-1 - CMP Order Info: [id number] - LIPID Comments: cc copy to Dr. Kayli Polo Order Info: 3 - TSH Order Info: 3023-11 - T4F cc copy to Dr. Kayli Polo Result Comment: Fast ing Glucose result from 100 to 125 mg/dL suggests IMPAIRED HOMEOSTASIS per A.D.A. criteria. Performed By: #### L 100.0100, L500.4050, L506.0400, L500.4100, L501.9520 #### [facility] [address] [place], [address] Potassium [Moles/Vol] 4.2 mmol/L Normal 3.5-5.1 [facility] Comment on above: Order Comment: Order Date: 12/20/23 Order Info: 86-1 - CMP Order Info: [id number] - LIPID Comments: cc copy to Dr. Kayli Polo Order Info: [id number] - TSH Order Info: 3023-11 T4F cc copy to Dr. Kayli Polo Performed By: #### L 100.0100, L500.4050, L506.0400, L500.4100, L501.9520 #### [facility] [address] [place], [address] Sodium [Moles/Vol] 132 mmol/L Low 136-145 [facility] Comment on above: Order Comment: Order Date: 12/20/23 Order Info: 785-05 - CMP Order Info: [id number] - LIPID Comments: cc copy to Dr. Kayli Polo Order Info: [id number] - TSH Order Info: 3023-11 T4F cc copy to Dr. Kayli Polo Performed By: #### L 100.0100, L500.4050, L506.0400, L500.4100, L501.9520 #### [facility] [address] [place], [address] T PROT 7.3 g/dL Normal 6.4-8.2 [facility] Comment on above: Order Comment: Order Date: 12/20/23 Order Info: 785- - CMP Order Info: [id number] - LIPID Comments: cc copy to Dr. Kayli Polo Order Info: [id number] - TSH Order Info: 3023-11 T4F cc copy to Dr. Kayli Polo Performed By: #### L 100.0100, L500.4050, L506.0400, L500.4100, L501.9520 #### [facility] [address] [place], [address] Urea nitrogen [Mass/Vol] 19 mg/dL High 7-18 [facility] Comment on above: Order Comment: Order Date: 12/20/23 Order Info: 07-1 - CMP Order Info: [id number] - LIPID Comments: cc copy to Dr. Kayli Polo Order Info: [id number] - TSH Order Info: 3023-11 T4F cc copy to Dr. Kayli Polo Performed By: #### L 100.0100, L500.4050, L506.0400, L500.4100, L501.9520 #### [facility] [address] [place], [address] Lipid Profileon 12-20-2023 Cholesterol [Mass/Vol] 139 mg/dL Normal 200 [facility] Comment on above: Order Comment: Order Date: 12/20/23 Order Info: 785-05 - CMP Order Info: [id number] - LIPID Comments: cc copy to Dr. Kayli Polo Order Info: [id number] - TSH Order Info: 3023-11 T4F cc copy to Dr. Kayli Polo Result Comment: <200 mg/dL Desirable 200-240 mg/dL Borderline >240 mg/dL High Risk Performed By: #### L 100.0100, L500.4050, L506.0400, L500.4100, L501.9520 #### [facility] [address] [place], [address] Cholesterol in HDL [Mass/Vol] 48 mg/dL Normal [facility] Comment on above: Order Comment: Order Date: 12/20/23 Order Info: 785-1 - CMP Order Info: [id number] - LIPID Comments: cc copy to Dr. Kayli Polo Order Info: 3 - TSH Order Info: 3023-11 T4F cc copy to Dr. Kayli Polo Result Comment: The drugs N-Acetylcysteine and Metamizole may falsely depress this assay. Reference Range HDL <40 mg/dL Low HDL Cholesterol HDL >or= 60 mg/dL High HDL Cholesterol Performed By: #### L 100.0100, L500.4050, L506.0400, L500.4100, L501.9520 #### [facility] [address] [place], [address] Cholesterol in LDL [Mass/Vol] 62 mg/dL Normal 0-130 [facility] Comment on above: Order Comment: Order Date: 12/20/23 Order Info: 07- - CMP Order Info: [id number] - LIPID Comments: cc copy to Dr. Kayli Polo Order Info: [id number] - TSH Order Info: 3023-11 T4F cc copy to Dr. Kayli Polo Performed By: #### L 100.0100, L500.4050, L506.0400, L500.4100, L501.9520 #### [facility] [address] [place], [address] Cholesterol in VLDL [Mass/Vol] 29 mg/dL Normal 5-40 [facility] Comment on above: Order Comment: Order Date: 12/20/23 Order Info: 785-05 - CMP Order Info: [id number] - LIPID Comments: cc copy to Dr. Kayli Polo Order Info: [id number] - TSH Order Info: 3023-11 T4F cc copy to Dr. Kayli Polo Performed By: #### L 100.0100, L500.4050, L506.0400, L500.4100, L501.9520 #### [facility] [address] [place], [address] Triglyceride [Mass/Vol] 147 mg/dL Normal [facility] Comment on above: Order Comment: Order Date: 12/20/23 Order Info: 785- - CMP Order Info: [id number] - LIPID Comments: cc copy to Dr. [...] L 100.0100, L500.4050, L506.0400, L500.4100, L501.9520 #### [facility] [address] [place], [place], [id number] T4 Free Directon 12-20-2023 T4 FREE DIRECT 1.17 ng/dL Normal 0.76-1.46 [facility] Comment on above: Order Comment: Order Date: 12/20/23 Order Info: 0786-1 - CMP Order Info: [id number] - LIPID Comments: cc copy to Dr. Kayli Polo Order Info: [id number] - TSH Order Info: [id number] - T4F cc copy to Dr. Kayli Polo Performed By: #### L 100.0100, L500.4050, L506.0400, L500.4100, L501.9520 #### [facility] [address] [place], [address] Thyroid Stim Hormone (TSH)on 12-20-2023 TSH 2.22 uIU/mL Normal 0.358-3.74 [facility] Comment on above: Order Comment: Order Date: 12/20/23 Order Info: 0786-1 - CMP Order Info: [id number] - LIPID Comments: cc copy to Dr. Kayli Polo Order Info: [id number] - TSH Order Info: [id number] - T4F cc copy to Dr. Kayli Polo Performed By: #### L 100.0100, L500.4050, L506.0400, L500.4100, L501.9520 #### [facility] [address] [place], [place], [address] CNOVon 08-30-2023 CNOV Office Visit (AGGENS 3) FAHAD DE LEON JR ([id number]) 1955 M Date Time Provider Department 08/30/23 2:00 PM [facility] During your visit today, we recorded the [...] well.. Mu (more content not included)... Normal [facility] CNOVon 08-25-2023 [facility] (SWS ) FAHAD DE LEON JR ([id number]) 1955 M Date Time Provider Department 08/25/23 [...] on gallbladder ultrasound. He had presented to [facility] ED with right lower rib pain. [...] content not included)... Normal [facility] Absolute lymphocyte countOrd ered By: Gosia Delaney on 07-06-2023 Lymphocytes Auto (Unsp spec) [#/Vol] 1.85 10*3/uL 0.83-4.51 [facility] Automated lymphocyte count a s percentage of total leukocytesOrdered By: Gosia Delaney on 07-06-2023 Lymphocytes/100 WBC Auto (Unsp spec) 27.5 % 19-41 [facility] Basophil percentageOrdered B y: Gosia Delaney on 07-06-2023 Basophils/100 WBC (Bld) 0.4 % 0-1 [facility] Bilirubin [Mass/Vol] 0.60 mg/dL 0.20-1.00 [facility] Comment on above: For patients on eltr ombopag therapy, use of Dimension [place] TBIL is not recommended. Chloride [Moles/Vol] 102 mmol/L 98-107 [facility] Eosinophils/100 WBC (Bld) 5.3 % 0-5 [facility] Glucose [Mass/Vol] 111 mg/dL 74-106 [facility] Comment on above: Fasting Glucose resu lt from 100 to 125 mg/dL suggests IMPAIRED HOMEOSTASIS per A.D.A. criteria. Hemoglobin (Bld) [Mass/Vol] 15.1 g/dL 13.0-16.5 [facility] Monocytes/100 WBC (Bld) 8.6 % 0-10 [facility] Neutrophils (Bld) [#/Vol] 3.9 10*3/uL 2.0-7.7 [facility] Neutrophils/100 WBC (Bld) 57.9 % 47-70 [facility] Potassium [Moles/Vol] 4.5 mmol/L 3.5-5.1 [facility] Protein [Mass/Vol] 7.7 g/dL 6.4-8.2 [facility] Sodium [Moles/Vol] 134 mmol/L 136-145 [facility] WBC (Bld) [#/Vol] 6.7 10*3/uL 4.4-11.0 [facility] Determination of erythrocyte mean corpuscular volume (MCV)Ordered By: Gosia Delaney on 07-06-2023 MCV (RBC) [Entitic vol] 91.6 fL 80-94 [facility] Erythrocyte distribution wid th ratioOrdered By: Gosia Delaney on 07-06-2023 Erythrocyte distribution width (RBC) [Ratio] 13.1 % 11.6-14.6 [facility] Erythrocyte distribution wid th standard deviationOrdered By: Gosia Delaney on 07-06-2023 Erythrocyte distribution width (RBC) [Entitic vol] 44.2 fL 35.1-43.9 [facility] Hematocrit Auto (Bld) [Volum e fraction]Ordered By: Gosia Delaney on 07-06-2023 Hematocrit (Bld) [Volume fraction] 46.0 % 40-54 [facility] Immature granulocytes/100 WB C Auto (Bld)Ordered By: Gosia Delaney on 07-06-2023 Immature granulocytes/100 WBC (Bld) 0.300 % 0.0-0.9 [facility] Comment on above: IG% - Immature Granu locytes (promyelocytes, myelocytes and metamyelocytes) > 1% indicates that a LEFT SHIFT is Present. Laboratory - Chemistry and C hemistry - challengeOrdered By: Gosia Delaney on 07-06-2023 Albumin/Globulin [Mass ratio] 1.1 {ratio} 0.9-2.4 [facility] ALP [Catalytic activity/Vol] 103 U/L 45-117 [facility] ALT [Catalytic activity/Vol] 45 U/L 16-61 [facility] Amylase [Catalytic activity/Vol] 92 U/L 15-85 [facility] CO2 [Moles/Vol] 28.0 mmol/L 21.0-32.0 [facility] Globulin (S) [Mass/Vol] 3.6 g/dL 2.2-4.2 [facility] Lipase [Catalytic activity/Vol] 21 U/L 13-75 [facility] Comment on above: Please note:LIPASE r evised reference range effective 22. New Lipase methodology. Expected to produce lower values than the previous assay method. NEW Reference Range: 13 - 75 U/L Urea nitrogen/Creatinine [Mass ratio] 12.9 mg/mg 10-20 [facility] - Hematology and Cell countsOrdered By: Gosia Delaney on 07-06-2023 MCH (RBC) [Entitic mass] 30.1 pg 27.0-32.0 [facility] MCHC (RBC) [Mass/Vol] 32.8 g/dL 32-36 [facility] Nucleated RBC/100 WBC (Bld) [Ratio] 0 % 0-5 [facility] Platelet mean volume (Bld) [Entitic vol] 11.0 fL 6.2-12.0 [facility] Platelets (Bld) [#/Vol] 243 10*3/uL 150-450 [facility] No Panel InformationOrdered By: Gosia Delaney on 07-06-2023 C-Reactive Protein Extended Range 6.67 mg/L 0.0-3.0 [facility] Comment on above: C-Reactive Protein ( CRP) provides useful information for thediagnosis, therapy and monitoring of inflammatory processesand associated diseases. For the evaluation of Relative Riskfor Cardiovascular Disease, a High Sensitivity CRP (HSCRP)should be ordered. Estimated GFR (MDRD) Amer 69 mL/min >60 [facility] Comment on above: GFR Calc Estimated GFR (MDRD) Non-Af Amer 57 mL/min >60 [facility] Comment on above: Non- GFR Calc RBC Auto (Bld) [#/Vol]Ordere d By: Gosia Delaney on 07-06-2023 RBC (Bld) [#/Vol] 5.02 10*6/uL 4.6-6.2 [facility] Serum or plasma calcium zca urement (mass/volume)Ordered By: Gosia Delaney on 07-06-2023 Calcium [Mass/Vol] 9.7 mg/dL 8.5-10.1 [facility] Serum or plasma creatinine m easurement (mass/volume)Ordered By: Gosia Delaney on 07-06-2023 Creatinine [Mass/Vol] 1.32 mg/dL 0.70-1.30 [facility] Comment on above: The validity of the calculated GFR & GFRAA in patients over 70 years has not been determined. Clinical correlation is essential. Serum or plasma urea nitroge n measurement (mass/volume)Ordered By: Gosia Delaney on 07-06-2023 Urea nitrogen [Mass/Vol] 17 mg/dL 7-18 [facility] Thin prep Papanicolaou smear with manual screeningOrdered By: Gosia Delaney on 07-06-2023 Thin prep Papanicolaou smear with manual screening 4.1 g/dL 3.2-5.0 [facility] Thin prep Papanicolaou smear with manual screening 21 U/L 15-37 [facility] Thin prep Papanicolaou smear with manual screening 4 5-15 [facility] Absolute lymphocyte countOrd ered By: Lionel Ocasio on 07-03-2023 Lymphocytes Auto (Unsp spec) [#/Vol] 1.38 10*3/uL 0.83-4.51 [facility] Automated lymphocyte count a s percentage of total leukocytesOrdered By: Lionel Ocasio on 07-03-2023 Lymphocytes/100 WBC Auto (Unsp spec) 19.8 % 19-41 [facility] Basophil percentageOrdered B y: Lionel Ocasio on 07-03-2023 Basophils/100 WBC (Bld) 0.4 % 0-1 [facility] Bilirubin [Mass/Vol] 0.50 mg/dL 0.20-1.00 [facility] Comment on above: For patients on eltr ombopag therapy, use of Dimension [place] TBIL is not recommended. Chloride [Moles/Vol] 103 mmol/L 98-107 [facility] Eosinophils/100 WBC (Bld) 4.6 % 0-5 [facility] Glucose [Mass/Vol] 105 mg/dL 74-106 [facility] Comment on above: Fasting Glucose resu lt from 100 to 125 mg/dL suggests IMPAIRED HOMEOSTASIS per A.D.A. criteria. Hemoglobin (Bld) [Mass/Vol] 14.4 g/dL 13.0-16.5 [facility] Monocytes/100 WBC (Bld) 7.2 % 0-10 [facility] Neutrophils (Bld) [#/Vol] 4.7 10*3/uL 2.0-7.7 [facility] Neutrophils/100 WBC (Bld) 67.7 % 47-70 [facility] Potassium [Moles/Vol] 4.1 mmol/L 3.5-5.1 [facility] Protein [Mass/Vol] 6.7 g/dL 6.4-8.2 [facility] Sodium [Moles/Vol] 135 mmol/L 136-145 [facility] WBC (Bld) [#/Vol] 7.0 10*3/uL 4.4-11.0 [facility] Determination of erythrocyte mean corpuscular volume (MCV)Ordered By: Lionel Ocasio on 07-03-2023 MCV (RBC) [Entitic vol] 91.2 fL 80-94 [facility] Direct bilirubinOrdered By: Lionel Ocasio on 07-03-2023 Bilirubin.direct [Mass/Vol] 0.21 mg/dL 0.00-0.30 [facility] Erythrocyte distribution wid th ratioOrdered By: Lionel Ocasio on 07-03-2023 Erythrocyte distribution width (RBC) [Ratio] 12.8 % 11.6-14.6 [facility] Erythrocyte distribution wid th standard deviationOrdered By: Lionel Ocasio on 07-03-2023 Erythrocyte distribution width (RBC) [Entitic vol] 42.8 fL 35.1-43.9 [facility] Hematocrit Auto (Bld) [Volum e fraction]Ordered By: Lionel Ocasio on 07-03-2023 Hematocrit (Bld) [Volume fraction] 43.4 % 40-54 [facility] Immature granulocytes/100 WB C Auto (Bld)Ordered By: Lionel Ocasio on 07-03-2023 Immature granulocytes/100 WBC (Bld) 0.300 % 0.0-0.9 [facility] Comment on above: IG% - Immature Granu locytes (promyelocytes, myelocytes and metamyelocytes) > 1% indicates that a LEFT SHIFT is Present. Laboratory - Chemistry and C hemistry - challengeOrdered By: Lionel Ocasio on 07-03-2023 ALP [Catalytic activity/Vol] 106 U/L 45-117 [facility] ALT [Catalytic activity/Vol] 94 U/L 16-61 [facility] CO2 [Moles/Vol] 28.0 mmol/L 21.0-32.0 [facility] Globulin (S) [Mass/Vol] 3.0 g/dL 2.2-4.2 [facility] Urea nitrogen/Creatinine [Mass ratio] 16.1 mg/mg 10-20 [facility] - Hematology and Cell countsOrdered By: Lionel Ocasio on 07-03-2023 MCH (RBC) [Entitic mass] 30.3 pg 27.0-32.0 [facility] MCHC (RBC) [Mass/Vol] 33.2 g/dL 32-36 [facility] Nucleated RBC/100 WBC (Bld) [Ratio] 0 % 0-5 [facility] Platelet mean volume (Bld) [Entitic vol] 11.3 fL 6.2-12.0 [facility] Platelets (Bld) [#/Vol] 208 10*3/uL 150-450 [facility] No Panel InformationOrdered By: Lionel Ocasio on 07-03-2023 D-Dimer Quantitative (PE/DVT) 0.89 FEU/ug/m 0.27-0.49 [facility] Comment on above: D-Dimer ELEVATED (>0 .49): Additional studies and clinicalassessments are indicated to conclude diagnosis of:Deep Vein Thrombosis (DVT) or Pulmonary Embolism (PE) Estimated Creatinine Clearance Calc 45.63 ml/min [facility] Estimated GFR (MDRD) Amer 79 mL/min >60 [facility] Comment on above: GFR Calc Estimated GFR (MDRD) Non-Af Amer 65 mL/min >60 [facility] Comment on above: Non- GFR Calc Troponin I High Sensitivity 6 pg/mL 3.0-78.0 [facility] Comment on above: Please Note: New Angela t Units and Gender Specific Reference Ranges. For more information see Policy Stat Procedure [place] High Sensitivity Troponin (TNIH) and attachments. RBC Auto (Bld) [#/Vol]Ordere d By: Lionel Ocasio on 07-03-2023 RBC (Bld) [#/Vol] 4.76 10*6/uL 4.6-6.2 [facility] Serum or plasma calcium zac urement (mass/volume)Ordered By: Lionel Ocasio on 07-03-2023 Calcium [Mass/Vol] 9.1 mg/dL 8.5-10.1 [facility] Serum or plasma creatinine m easurement (mass/volume)Ordered By: Lionel Ocasio on 07-03-2023 Creatinine [Mass/Vol] 1.18 mg/dL 0.70-1.30 [facility] Comment on above: The validity of the calculated GFR & GFRAA in patients over 70 years has not been determined. Clinical correlation is essential. Serum or plasma urea nitroge n measurement (mass/volume)Ordered By: Lionel Ocasio on 07-03-2023 Urea nitrogen [Mass/Vol] 19 mg/dL 7-18 [facility] Thin prep Papanicolaou smear with manual screeningOrdered By: Lionel Ocasio on 07-03-2023 Thin prep Papanicolaou smear with manual screening 3.7 g/dL 3.2-5.0 [facility] Thin prep Papanicolaou smear with manual screening 97 U/L 15-37 [facility] Thin prep Papanicolaou smear with manual screening 4 5-15 [facility] Basophil percentageOrdered B y: Gosia Delaney on 04-12-2023 Bilirubin [Mass/Vol] 0.50 mg/dL 0.20-1.00 [facility] Comment on above: For patients on eltr ombopag therapy, use of Dimension [place] TBIL is not recommended. Chloride [Moles/Vol] 100 mmol/L 98-107 [facility] Cholesterol [Mass/Vol] 175 mg/dL <200 [facility] Comment on above: <200 mg/dL Desirable 200-240 mg/dL Borderline >240 mg/dL High Risk Glucose [Mass/Vol] 111 mg/dL 74-106 [facility] Comment on above: Fasting Glucose resu lt from 100 to 125 mg/dL suggests IMPAIRED HOMEOSTASIS per A.D.A. criteria. Potassium [Moles/Vol] 4.1 mmol/L 3.5-5.1 [facility] Protein [Mass/Vol] 7.3 g/dL 6.4-8.2 [facility] Sodium [Moles/Vol] 135 mmol/L 136-145 [facility] Triglyceride [Mass/Vol] 263 mg/dL <199 [facility] Comment on above: The drugs N-Acetylcy steine and Metamizole may falsely depress this assay.Serum Triglycerides Reference Interval Normal <150 mg/dL Borderline high 150 - 199 mg/dL High 200 - 499 mg/dL Very High > or = 500 mg/dL Cholesterol in LDL Direct as say [Mass/Vol]Ordered By: Gosia Delaney on 04-12-2023 Cholesterol in LDL [Mass/Vol] 99 mg/dL 0-99 [facility] Comment on above: Performed at: [address] Director: Aquilino Gómez PhD, Phone: [phone] Laboratory - Chemistry and C hemistry - challengeOrdered By: Gosia Delaney on 04-12-2023 ALP [Catalytic activity/Vol] 82 U/L 45-117 [facility] ALT [Catalytic activity/Vol] 37 U/L 16-61 [facility] Amylase [Catalytic activity/Vol] 361 U/L 15-85 [facility] CO2 [Moles/Vol] 24.0 mmol/L 21.0-32.0 [facility] Globulin (S) [Mass/Vol] 3.7 g/dL 2.2-4.2 [facility] Urea nitrogen/Creatinine [Mass ratio] 10.4 mg/mg 10-20 [facility] - Miscellaneous t estsOrdered By: Gosia Delaney on 04-12-2023 Service comment (Unsp spec) [Interp] TNP [facility] Comment on above: Test not performed No Panel InformationOrdered By: Gosia Delaney on 04-12-2023 Estimated GFR (MDRD) Amer 68 mL/min >60 [facility] Comment on above: GFR Calc Estimated GFR (MDRD) Non-Af Amer 56 mL/min >60 [facility] Comment on above: Non- GFR Calc Serum or plasma albumin zac urement (mass/volume)Ordered By: Gosia Delaney on 04-12-2023 Albumin [Mass/Vol] 3.6 g/dL 3.2-5.0 [facility] Serum or plasma albumin/glob ulin mass ratioOrdered By: Gosia Delaney on 04-12-2023 Albumin/Globulin [Mass ratio] 1.0 {ratio} 0.9-2.4 [facility] Serum or plasma calcium zac urement (mass/volume)Ordered By: Gosia Delaney on 04-12-2023 Calcium [Mass/Vol] 9.4 mg/dL 8.5-10.1 [facility] Serum or plasma cholesterol in HDL measurement (mass/volume)Ordered By: Gosia Delaney on 04-12-2023 Cholesterol in HDL [Mass/Vol] 47 mg/dL >40 [facility] Comment on above: The drugs N-Acetylcy steine and Metamizole may falsely depress this assay. Reference Range HDL <40 mg/dL Low HDL Cholesterol HDL >or= 60 mg/dL High HDL Cholesterol Serum or plasma cholesterol in VLDL measurement (mass/volume)Ordered By: Gosia Delaney on 04-12-2023 Cholesterol in VLDL [Mass/Vol] 53 mg/dL 5-40 [facility] Serum or plasma creatinine m easurement (mass/volume)Ordered By: Gosia Delaney on 04-12-2023 Creatinine [Mass/Vol] 1.34 mg/dL 0.70-1.30 [facility] Comment on above: The validity of the calculated GFR & GFRAA in patients over 70 years has not been determined. Clinical correlation is essential. Serum or plasma low density lipoprotein (LDL) cholesterol measurement (mass/volume)Ordered By: Gosia Delaney on 04-12-2023 Cholesterol in LDL [Mass/Vol] 75 mg/dL 0-130 [facility] Serum or plasma urea nitroge n measurement (mass/volume)Ordered By: Gosia Delaney on 04-12-2023 Urea nitrogen [Mass/Vol] 14 mg/dL 7-18 [facility] Thin prep Papanicolaou smear with manual screeningOrdered By: Gosia Delaney on 04-12-2023 Thin prep Papanicolaou smear with manual screening 24 U/L 15-37 [facility] Thin prep Papanicolaou smear with manual screening 11 5-15 [facility] Basophil percentageOrdered B y: Gosia Delaney on 04-05-2023 Bilirubin [Mass/Vol] 0.60 mg/dL 0.20-1.00 [facility] Comment on above: For patients on eltr ombopag therapy, use of Dimension [place] TBIL is not recommended. Chloride [Moles/Vol] 102 mmol/L 98-107 [facility] Glucose [Mass/Vol] 105 mg/dL 74-106 [facility] Comment on above: Fasting Glucose resu lt from 100 to 125 mg/dL suggests IMPAIRED HOMEOSTASIS per A.D.A. criteria. Potassium [Moles/Vol] 4.3 mmol/L 3.5-5.1 [facility] Protein [Mass/Vol] 7.3 g/dL 6.4-8.2 [facility] Sodium [Moles/Vol] 137 mmol/L 136-145 [facility] Laboratory - Chemistry and C hemistry - challengeOrdered By: Gosia Delaney on 04-05-2023 ALP [Catalytic activity/Vol] 122 U/L 45-117 [facility] ALT [Catalytic activity/Vol] 113 U/L 16-61 [facility] CO2 [Moles/Vol] 28.0 mmol/L 21.0-32.0 [facility] Globulin (S) [Mass/Vol] 3.9 g/dL 2.2-4.2 [facility] Urea nitrogen/Creatinine [Mass ratio] 6.9 mg/mg 10-20 [facility] No Panel InformationOrdered By: Gosia Delaney on 04-05-2023 Estimated GFR (MDRD) Amer 70 mL/min >60 [facility] Comment on above: GFR Calc Estimated GFR (MDRD) Non-Af Amer 58 mL/min >60 [facility] Comment on above: Non- GFR Calc Serum or plasma albumin zac urement (mass/volume)Ordered By: Gosia Delaney on 04-05-2023 Albumin [Mass/Vol] 3.4 g/dL 3.2-5.0 [facility] Serum or plasma albumin/glob ulin mass ratioOrdered By: Gosia Delaney on 04-05-2023 Albumin/Globulin [Mass ratio] 0.9 {ratio} 0.9-2.4 [facility] Serum or plasma calcium zac urement (mass/volume)Ordered By: Gosia Delaney on 04-05-2023 Calcium [Mass/Vol] 9.1 mg/dL 8.5-10.1 [facility] Serum or plasma creatinine m easurement (mass/volume)Ordered By: Gosia Delaney on 04-05-2023 Creatinine [Mass/Vol] 1.31 mg/dL 0.70-1.30 [facility] Comment on above: The validity of the calculated GFR & GFRAA in patients over 70 years has not been determined. Clinical correlation is essential. Serum or plasma urea nitroge n measurement (mass/volume)Ordered By: Gosia Delaney on 04-05-2023 Urea nitrogen [Mass/Vol] 9 mg/dL 7-18 [facility] Thin prep Papanicolaou smear with manual screeningOrdered By: Gosia Delaney on 04-05-2023 Thin prep Papanicolaou smear with manual screening 45 U/L 15-37 [facility] Thin prep Papanicolaou smear with manual screening 7 5-15 [facility] Absolute lymphocyte countOrd ered By: Gosia Delaney on 03-29-2023 Lymphocytes Auto (Unsp spec) [#/Vol] 1.47 10*3/uL 0.83-4.51 [facility] Basophil percentageOrdered B y: Gosia Delaney on 03-29-2023 Basophils/100 WBC (Bld) 0.5 % 0-1 [facility] Bilirubin [Mass/Vol] 1.90 mg/dL 0.20-1.00 [facility] Comment on above: For patients on eltr ombopag therapy, use of Dimension [place] TBIL is not recommended. Chloride [Moles/Vol] 95 mmol/L 98-107 [facility] Eosinophils/100 WBC (Bld) 1.1 % 0-5 [facility] Glucose [Mass/Vol] 129 mg/dL 74-106 [facility] Comment on above: Fasting Glucose resu lt greater than or equal to 126 mg/dL suggests DIABETES MELLITUS per A.D.A. criteria. Neutrophils (Bld) [#/Vol] 4.4 10*3/uL 2.0-7.7 [facility] Neutrophils/100 WBC (Bld) 69.4 % 47-70 [facility] Potassium [Moles/Vol] 4.1 mmol/L 3.5-5.1 [facility] Comment on above: Slight Hemolysis, Re sult may be falsely increased. Protein [Mass/Vol] 6.9 g/dL 6.4-8.2 [facility] Sodium [Moles/Vol] 129 mmol/L 136-145 [facility] WBC (Bld) [#/Vol] 6.3 10*3/uL 4.4-11.0 [facility] Blood erythrocytes count (nu mber/volume)Ordered By: Gosia Delaney on 03-29-2023 RBC (Bld) [#/Vol] 4.55 10*6/uL 4.6-6.2 [facility] Blood hemoglobin measurement (mass/volume)Ordered By: Gosia Delaney on 03-29-2023 Hemoglobin (Bld) [Mass/Vol] 14.7 g/dL 13.0-16.5 [facility] Blood lymphocytes/100 leukoc ytesOrdered By: Gosia Delaney on 03-29-2023 Lymphocytes/100 WBC (Bld) 23.2 % 19-41 [facility] Blood monocytes/100 leukocyt esOrdered By: Gosia Delaney on 03-29-2023 Monocytes/100 WBC (Bld) 5.5 % 0-10 [facility] Blood platelet mean volumeOr dered By: Gosia Delaney on 03-29-2023 Platelet mean volume (Bld) [Entitic vol] 11.2 fL 6.2-12.0 [facility] Determination of erythrocyte mean corpuscular volume (MCV)Ordered By: Gosia Delaney on 03-29-2023 MCV (RBC) [Entitic vol] 94.3 fL 80-94 [facility] Erythrocyte sedimentation ra teOrdered By: Gosia Delaney on 03-29-2023 ESR (Bld) [Velocity] mm/h 0-20 [facility] Hematocrit Auto (Bld) [Volum e fraction]Ordered By: Gosia Delaney on 03-29-2023 Hematocrit (Bld) [Volume fraction] 42.9 % 40-54 [facility] - Chemistry and C hemistry - challengeOrdered By: Gosia Delaney on 03-29-2023 ALP [Catalytic activity/Vol] 181 U/L 45-117 [facility] ALT [Catalytic activity/Vol] 491 U/L 16-61 [facility] CO2 [Moles/Vol] 21.0 mmol/L 21.0-32.0 [facility] Globulin (S) [Mass/Vol] 3.2 g/dL 2.2-4.2 [facility] Lipase [Catalytic activity/Vol] 30 U/L 13-75 [facility] Comment on above: Please note:LIPASE r evised reference range effective 22. New Lipase methodology. Expected to produce lower values than the previous assay method. NEW Reference Range: 13 - 75 U/L Magnesium [Mass/Vol] 2.2 mg/dL 1.6-2.6 [facility] Comment on above: Slight Hemolysis, Re sult may be falsely increased. Urea nitrogen/Creatinine [Mass ratio] 13.5 mg/mg 10- [facility] - Hematology and Cell countsOrdered By: Gosia Delaney on 03-29-2023 Erythrocyte distribution width (RBC) [Entitic vol] 47.6 fL 35.1-43.9 [facility] Erythrocyte distribution width (RBC) [Ratio] 13.6 % 11.6-14.6 [facility] Immature granulocytes/100 WBC (Bld) 0.300 % 0.0-0.9 [facility] Comment on above: IG% - Immature Granu locytes (promyelocytes, myelocytes and metamyelocytes) > 1% indicates that a LEFT SHIFT is Present. MCH (RBC) [Entitic mass] 32.3 pg 27.0-32.0 [facility] Nucleated RBC/100 WBC (Bld) [Ratio] 0 % 0-5 [facility] MCHC Auto (RBC) [Mass/Vol]Or dered By: Gosia Delaney on 03-29-2023 MCHC (RBC) [Mass/Vol] 34.3 g/dL 32-36 [facility] No Panel InformationOrdered By: Gosia Delaney on 03-29-2023 Estimated GFR (MDRD) Amer 61 mL/min >60 [facility] Comment on above: GFR Calc Estimated GFR (MDRD) Non-Af Amer 50 mL/min >60 [facility] Comment on above: Non- GFR Calc Platelets bldOrdered By: Julia Delaney on 03-29-2023 Platelets (Bld) [#/Vol] 160 10*3/uL 150-450 [facility] Serum or plasma C reactive p rotein measurement (mass/volume)Ordered By: Gosia Delaney on 03-29-2023 CRP [Mass/Vol] mg/L 0.0-3.0 [facility] Comment on above: C-Reactive Protein ( CRP) provides useful information for thediagnosis, therapy and monitoring of inflammatory processesand associated diseases. For the evaluation of Relative Riskfor Cardiovascular Disease, a High Sensitivity CRP (HSCRP)should be ordered. Serum or plasma albumin zac urement (mass/volume)Ordered By: Gosia Delaney on 03-29-2023 Albumin [Mass/Vol] 3.7 g/dL 3.2-5.0 [facility] Serum or plasma albumin/glob ulin mass ratioOrdered By: Gosia Delaney on 03-29-2023 Albumin/Globulin [Mass ratio] 1.2 {ratio} 0.9-2.4 [facility] Serum or plasma calcium zac urement (mass/volume)Ordered By: Gosia Delaney on 03-29-2023 Calcium [Mass/Vol] 8.1 mg/dL 8.5-10.1 [facility] Serum or plasma creatinine m easurement (mass/volume)Ordered By: Gosia Delaney on 03-29-2023 Creatinine [Mass/Vol] 1.48 mg/dL 0.70-1.30 [facility] Comment on above: The validity of the calculated GFR & GFRAA in patients over 70 years has not been determined. Clinical correlation is essential. Serum or plasma urea nitroge n measurement (mass/volume)Ordered By: Gosia Delaney on 03-29-2023 Urea nitrogen [Mass/Vol] 20 mg/dL 7-18 [facility] Thin prep Papanicolaou smear with manual screeningOrdered By: Gosia Delaney on 03-29-2023 Thin prep Papanicolaou smear with manual screening 757 U/L 15-37 [facility] Comment on above: Slight Hemolysis, Re sult may be falsely increased. Thin prep Papanicolaou smear with manual screening 13 5-15 [facility] Basophil percentageOrdered B y: Gosia Delaney on 12-04-2022 Bilirubin [Mass/Vol] 0.50 mg/dL 0.20-1.00 [facility] Comment on above: For patients on eltr ombopag therapy, use of Dimension [place] TBIL is not recommended. Chloride [Moles/Vol] 103 mmol/L 98-107 [facility] Cholesterol [Mass/Vol] 167 mg/dL <200 [facility] Comment on above: <200 mg/dL Desirable 200-240 mg/dL Borderline >240 mg/dL High Risk Glucose [Mass/Vol] 85 mg/dL 74-106 [facility] Potassium [Moles/Vol] 3.7 mmol/L 3.5-5.1 [facility] Protein [Mass/Vol] 7.3 g/dL 6.4-8.2 [facility] Sodium [Moles/Vol] 138 mmol/L 136-145 [facility] Triglyceride [Mass/Vol] 335 mg/dL <199 [facility] Comment on above: The drugs N-Acetylcy steine and Metamizole may falsely depress this assay.Serum Triglycerides Reference Interval Normal <150 mg/dL Borderline high 150 - 199 mg/dL High 200 - 499 mg/dL Very High > or = 500 mg/dL Laboratory - Chemistry and C hemistry - challengeOrdered By: Gosia Delaney on 12-04-2022 ALP [Catalytic activity/Vol] 109 U/L 45-117 [facility] ALT [Catalytic activity/Vol] 46 U/L 16-61 [facility] CO2 [Moles/Vol] 27.0 mmol/L 21.0-32.0 [facility] Globulin (S) [Mass/Vol] 3.6 g/dL 2.2-4.2 [facility] Urea nitrogen/Creatinine [Mass ratio] 7.0 mg/mg 10- [facility] No Panel InformationOrdered By: Gosia Delaney on 12-04-2022 Estimated GFR (MDRD) Amer 113 mL/min >60 [facility] Comment on above: GFR Calc Estimated GFR (MDRD) Non-Af Amer 93 mL/min >60 [facility] Comment on above: Non- GFR Calc Prostate Specific Antigen Screen 0.46 ng/mL 0.00-4.00 [facility] Comment on above: This test was perfor med using the TPSA assay method for the[employer] chemistry system. Values obtained with differentassay methods cannot be used interchangably.When changing PSA assays in the course of monitoring apatient, additional sequential testing should be carriedout to confirm baseline values. Thyroid Stimulating Hormone (TSH) 1.60 uIU/mL 0.358-3.74 [facility] Urine Microalbumin/Creatinine Ratio 15.5 mg/g CRE <30 [facility] Serum or plasma albumin zac urement (mass/volume)Ordered By: Gosia Delaney on 12-04-2022 Albumin [Mass/Vol] 3.7 g/dL 3.2-5.0 [facility] Serum or plasma albumin/glob ulin mass ratioOrdered By: Gosia Delaney on 12-04-2022 Albumin/Globulin [Mass ratio] 1.0 {ratio} 0.9-2.4 [facility] Serum or plasma calcium zac urement (mass/volume)Ordered By: Gosia Delaney on 12-04-2022 Calcium [Mass/Vol] 8.7 mg/dL 8.5-10.1 [facility] Serum or plasma cholesterol in HDL measurement (mass/volume)Ordered By: Gosia Delaney on 12-04-2022 Cholesterol in HDL [Mass/Vol] 55 mg/dL >40 [facility] Comment on above: The drugs N-Acetylcy steine and Metamizole may falsely depress this assay. Reference Range HDL <40 mg/dL Low HDL Cholesterol HDL >or= 60 mg/dL High HDL Cholesterol Serum or plasma cholesterol in VLDL measurement (mass/volume)Ordered By: Gosia Delaney on 12-04-2022 Cholesterol in VLDL [Mass/Vol] 67 mg/dL 5-40 [facility] Serum or plasma creatinine m easurement (mass/volume)Ordered By: Gosia Delaney on 12-04-2022 Creatinine [Mass/Vol] 0.86 mg/dL 0.70-1.30 [facility] Comment on above: The validity of the calculated GFR & GFRAA in patients over 70 years has not been determined. Clinical correlation is essential. Serum or plasma low density lipoprotein (LDL) cholesterol measurement (mass/volume)Ordered By: Gosia Delaney on 12-04-2022 Cholesterol in LDL [Mass/Vol] 45 mg/dL 0-130 [facility] Serum or plasma urea nitroge n measurement (mass/volume)Ordered By: Gosia Delaney on 12-04-2022 Urea nitrogen [Mass/Vol] 6 mg/dL 7-18 [facility] Thin prep Papanicolaou smear with manual screeningOrdered By: Gosia Delaney on 12-04-2022 Thin prep Papanicolaou smear with manual screening 43 U/L 15-37 [facility] Thin prep Papanicolaou smear with manual screening 8 5-15 [facility] Thin prep Papanicolaou smear with manual screening 11.3 mg/L NO RANGE EST. [facility] Urine creatinine measurement (mass/volume)Ordered By: Gosia Delaney on 12-04-2022 Creatinine (U) [Mass/Vol] 73.10 mg/dL NO RANGE EST. [facility] Absolute lymphocyte countOrd ered By: Dr. Delaney on 06-04-2022 Lymphocytes Auto (Unsp spec) [#/Vol] 1.97 10*3/uL 0.83-4.51 [facility] Basophil percentageOrdered B y: Dr. Delaney on 06-04-2022 Basophils/100 WBC (Bld) 0.8 % 0-1 [facility] Bilirubin [Mass/Vol] 0.60 mg/dL 0.20-1.00 [facility] Comment on above: For patients on eltr ombopag therapy, use of Dimension [place] TBIL is not recommended. Chloride [Moles/Vol] 101 mmol/L 98-107 [facility] Cholesterol [Mass/Vol] 248 mg/dL <200 [facility] Comment on above: <200 mg/dL Desirable 200-240 mg/dL Borderline >240 mg/dL High Risk Eosinophils/100 WBC (Bld) 6.3 % 0-5 [facility] Glucose [Mass/Vol] 106 mg/dL 74-106 [facility] Comment on above: Fasting Glucose resu lt from 100 to 125 mg/dL suggests IMPAIRED HOMEOSTASIS per A.D.A. criteria. Neutrophils (Bld) [#/Vol] 4.0 10*3/uL 2.0-7.7 [facility] Neutrophils/100 WBC (Bld) 56.1 % 47-70 [facility] Potassium [Moles/Vol] 4.2 mmol/L 3.5-5.1 [facility] Protein [Mass/Vol] 7.2 g/dL 6.4-8.2 [facility] Sodium [Moles/Vol] 139 mmol/L 136-145 [facility] Triglyceride [Mass/Vol] 543 mg/dL <199 [facility] Comment on above: The drugs N-Acetylcy steine and Metamizole may falsely depress this assay. TRIGLYCERIDE IS GREATER THAN 400 mg/dL. LDL RESULT IS INVALID AND WILL NOT BE REPORTED.Serum Triglycerides Reference Interval Normal <150 mg/dL Borderline high 150 - 199 mg/dL High 200 - 499 mg/dL Very High > or = 500 mg/dL WBC (Bld) [#/Vol] 7.1 10*3/uL 4.4-11.0 [facility] Blood erythrocytes count (nu mber/volume)Ordered By: Dr. Delaney on 06-04-2022 RBC (Bld) [#/Vol] 4.77 10*6/uL 4.6-6.2 [facility] Blood hemoglobin measurement (mass/volume)Ordered By: Dr. Delaney on 06-04-2022 Hemoglobin (Bld) [Mass/Vol] 15.3 g/dL 13.0-16.5 [facility] Blood lymphocytes/100 leukoc ytesOrdered By: Dr. Delaney on 06-04-2022 Lymphocytes/100 WBC (Bld) 27.7 % 19-41 [facility] Blood monocytes/100 leukocyt esOrdered By: Dr. Delaney on 06-04-2022 Monocytes/100 WBC (Bld) 8.7 % 0-10 [facility] Blood platelet mean volumeOr dered By: Dr. Delaney on 06-04-2022 Platelet mean volume (Bld) [Entitic vol] 11.3 fL 6.2-12.0 [facility] Determination of erythrocyte mean corpuscular volume (MCV)Ordered By: Dr. Delaney on 06-04-2022 MCV (RBC) [Entitic vol] 95.8 fL 80-94 [facility] Hematocrit Auto (Bld) [Volum e fraction]Ordered By: Dr. Delaney on 06-04-2022 Hematocrit (Bld) [Volume fraction] 45.7 % 40-54 [facility] - Chemistry and C hemistry - challengeOrdered By: Dr. Dleaney on 06-04-2022 ALP [Catalytic activity/Vol] 86 U/L 45-117 [facility] ALT [Catalytic activity/Vol] 47 U/L 16-61 [facility] Amylase [Catalytic activity/Vol] 257 U/L 15-85 [facility] CO2 [Moles/Vol] 28.0 mmol/L 21.0-32.0 [facility] Globulin (S) [Mass/Vol] 3.3 g/dL 2.2-4.2 [facility] Urea nitrogen/Creatinine [Mass ratio] 10.2 mg/mg 10-20 [facility] - Hematology and Cell countsOrdered By: Dr. Delaney on 06-04-2022 Erythrocyte distribution width (RBC) [Entitic vol] 44.5 fL 35.1-43.9 [facility] Erythrocyte distribution width (RBC) [Ratio] 12.6 % 11.6-14.6 [facility] Immature granulocytes/100 WBC (Bld) 0.400 % 0.0-0.9 [facility] Comment on above: IG% - Immature Granu locytes (promyelocytes, myelocytes and metamyelocytes) > 1% indicates that a LEFT SHIFT is Present. MCH (RBC) [Entitic mass] 32.1 pg 27.0-32.0 [facility] Nucleated RBC/100 WBC (Bld) [Ratio] 0 % 0-5 [facility] MCHC Auto (RBC) [Mass/Vol]Or dered By: Dr. Delaney on 06-04-2022 MCHC (RBC) [Mass/Vol] 33.5 g/dL 32-36 [facility] No Panel InformationOrdered By: Dr. Delaney on 06-04-2022 Estimated GFR (MDRD) Amer 127 mL/min >60 [facility] Comment on above: GFR Calc Estimated GFR (MDRD) Non-Af Amer 105 mL/min >60 [facility] Comment on above: Non- GFR Calc Thyroid Stimulating Hormone (TSH) 2.34 uIU/mL 0.358-3.74 [facility] Urine Microalbumin/Creatinine Ratio 184.4 mg/g CRE <30 [facility] Platelets bldOrdered By: Dr. Delaney on 06-04-2022 Platelets (Bld) [#/Vol] 224 10*3/uL 150-450 [facility] Serum or plasma albumin zac urement (mass/volume)Ordered By: Dr. Delaney on 06-04-2022 Albumin [Mass/Vol] 3.9 g/dL 3.2-5.0 [facility] Serum or plasma albumin/glob ulin mass ratioOrdered By: Dr. Delaney on 06-04-2022 Albumin/Globulin [Mass ratio] 1.2 {ratio} 0.9-2.4 [facility] Serum or plasma calcium zac urement (mass/volume)Ordered By: Dr. Delaney on 06-04-2022 Calcium [Mass/Vol] 9.1 mg/dL 8.5-10.1 [facility] Serum or plasma cholesterol in HDL measurement (mass/volume)Ordered By: Dr. Delaney on 06-04-2022 Cholesterol in HDL [Mass/Vol] 49 mg/dL >40 [facility] Comment on above: The drugs N-Acetylcy steine and Metamizole may falsely depress this assay. Reference Range HDL <40 mg/dL Low HDL Cholesterol HDL >or= 60 mg/dL High HDL Cholesterol Serum or plasma cholesterol in VLDL measurement (mass/volume)Ordered By: Dr. Delaney on 06-04-2022 Cholesterol in VLDL [Mass/Vol] TNP [facility] Comment on above: Test not performed Serum or plasma creatinine m easurement (mass/volume)Ordered By: Dr. Delaney on 06-04-2022 Creatinine [Mass/Vol] 0.78 mg/dL 0.70-1.30 [facility] Comment on above: The validity of the calculated GFR & GFRAA in patients over 70 years has not been determined. Clinical correlation is essential. Serum or plasma low density lipoprotein (LDL) cholesterol measurement (mass/volume)Ordered By: Dr. Delaney on 06-04-2022 Cholesterol in LDL [Mass/Vol] TNP [facility] Comment on above: Test not performed Serum or plasma urea nitroge n measurement (mass/volume)Ordered By: Dr. Delaney on 06-04-2022 Urea nitrogen [Mass/Vol] 8 mg/dL 7-18 [facility] Thin prep Papanicolaou smear with manual screeningOrdered By: Dr. Delaney on 06-04-2022 Thin prep Papanicolaou smear with manual screening 37 U/L 15-37 [facility] Thin prep Papanicolaou smear with manual screening 10 5-15 [facility] Thin prep Papanicolaou smear with manual screening 69.7 mg/L NO RANGE EST. [facility] Urine creatinine measurement (mass/volume)Ordered By: Dr. Delaney on 06-04-2022 Creatinine (U) [Mass/Vol] 37.80 mg/dL NO RANGE EST. [facility] Vital Signs Date Time Vital Sign Value Performing Clinician Facility 11-20-2024 00:28-0400 Body temperature 98 [degF] Dr. Gosia Delaney MD Work Phone: [facility] 11-20-2024 00:28-0400 Diastolic blood pressure 79 mm[Hg] Dr. Gosia Delaney MD Work Phone: [facility] 11-20-2024 00:28-0400 Heart rate 57 /min Dr. Gosia Delaney MD Work Phone: [facility] 11-20-2024 00:28-0400 Respiratory rate 18 /min Dr. Gosia Delaney MD Work Phone: [facility] 11-20-2024 00:28-0400 SaO2% (BldA) [Mass fraction] 96 % Dr. Gosia Delaney MD Work Phone: [facility] 11-20-2024 00:28-0400 Systolic blood pressure 169 mm[Hg] Dr. Gosia Delaney MD Work Phone: [facility] 11-19-2024 19:54-0400 Body height 160.[address] Gosia Delaney MD Work Phone: [facility] 11-19-2024 19:54-0400 Body mass index (BMI) [Ratio] 21.9 kg/m2 Dr. Gosia Delaney MD Work Phone: [facility] 11-19-2024 19:54-0400 Body weight [address] Gosia Delaney MD Work Phone: [facility] 11-08-2024 07:56-0400 Body height 157.[address] Gosia Delaney MD Work Phone: [facility] 11-08-2024 07:56-0400 Body mass index (BMI) [Ratio] 21.4 kg/m2 Dr. Gosia Delaney MD Work Phone: [facility] 11-08-2024 07:56-0400 Body temperature 97.8 [degF] Dr. Gosia Delaney MD Work Phone: [facility] 11-08-2024 07:56-0400 Body weight 53.[address] Gosia Delaney MD Work Phone: [facility] 11-08-2024 07:56-0400 Diastolic blood pressure 64 mm[Hg] Dr. Gosia Delaney MD Work Phone: [facility] 11-08-2024 07:56-0400 Heart rate 59 /min Dr. Gosia Delaney MD Work Phone: [facility] 11-08-2024 07:56-0400 Respiratory rate 15 /min Dr. Gosia Delaney MD Work Phone: [facility] 11-08-2024 07:56-0400 SaO2% (BldA) [Mass fraction] 98 % Dr. Gosia Delaney MD Work Phone: [facility] 11-08-2024 07:56-0400 Systolic blood pressure 144 mm[Hg] Dr. Gosia Delaney MD Work Phone: [facility] 08-30-2023 13:51-0400 Body height 160 cm Mary Carmen Cline MD Work Phone: [facility] 08-30-2023 13:51-0400 Body mass index (BMI) [Ratio] 20.9 kg/m2 Mary Carmen Cline MD Work Phone: [facility] 08-30-2023 13:51-0400 Body weight 53.52 kg Mary Carmen Cline MD Work Phone: [facility] 08-30-2023 13:51-0400 Diastolic blood pressure 90 mm[Hg] Mary Carmen Cline MD Work Phone: [facility] 08-30-2023 13:51-0400 Systolic blood pressure 183 mm[Hg] Mary Carmen Cline MD Work Phone: [facility] 08-25-2023 14:46-0400 Body height 160 cm Jessy Stafford MD Work Phone: [facility] 08-25-2023 14:46-0400 Body temperature 98.29 [degF] Jessy Stafford MD Work Phone: [facility] 08-25-2023 14:46-0400 Body weight 54.16 kg Jessy Stafford MD Work Phone: [facility] 08-25-2023 14:46-0400 Diastolic blood pressure 68 mm[Hg] Jessy Stafford MD Work Phone: [facility] 08-25-2023 14:46-0400 Heart rate 77 /min Jessy Stafford MD Work Phone: [facility] 08-25-2023 14:46-0400 SaO2% (BldA) [Mass fraction] 98 % Jessy Stafford MD Work Phone: [facility] 08-25-2023 14:46-0400 Systolic blood pressure 154 mm[Hg] Jessy Stafford MD Work Phone: [facility] 07-03-2023 14:35-0500 Body temperature 97.9 [degF] Dr. Gosia Delaney Work Phone: [facility] 07-03-2023 14:35-0500 Diastolic blood pressure 66 mm[Hg] Dr. Gosia Delaney Work Phone: [facility] 07-03-2023 14:35-0500 Heart rate 56 /min Dr. Gosia Delaney Work Phone: [facility] 07-03-2023 14:35-0500 Respiratory rate 14 /min Dr. Gosia Delaney Work Phone: [facility] 07-03-2023 14:35-0500 SaO2% (BldA) [Mass fraction] 98 % Dr. Gosia Delaney Work Phone: [facility] 07-03-2023 14:35-0500 Systolic blood pressure 171 mm[Hg] Dr. Gosia Delaney Work Phone: 5(692)579-889845 [place] [address] 07-03-2023 11:50-0500 Body height 157.[address] Gosia Delaney Work Phone: 0(491)455-432045 [place] [address] 07-03-2023 11:50-0500 Body mass index (BMI) [Ratio] 22 kg/m2 Dr. Gosia Delaney Work Phone: [facility] 07-03-2023 11:50-0500 Body weight 54.[address] Gosia Delaney Work Phone: 5(873)226-158223 [address] 04-19-2023 07:54-0500 Body height 157.[address] Gosia Delaney Work Phone: [facility] 04-19-2023 07:54-0500 Body mass index (BMI) [Ratio] 21.1 kg/m2 Dr. Gosia Delaney Work Phone: [facility] 04-19-2023 07:54-0500 Body temperature 97.8 [degF] Dr. Gosia Delaney Work Phone: [facility] 04-19-2023 07:54-0500 Body weight 52.[address] Gosia Delaney Work Phone: [facility] 04-19-2023 07:54-0500 Diastolic blood pressure 80 mm[Hg] Dr. Gosia Delaney Work Phone: [facility] 04-19-2023 07:54-0500 Heart rate 80 /min Dr. Gosai Delaney Work Phone: 9(087)336-420045 [place] [address] 04-19-2023 07:54-0500 Respiratory rate 17 /min Dr. Gosia Delaney Work Phone: 8(209)648-046110 [place] [address] 04-19-2023 07:54-0500 SaO2% (BldA) [Mass fraction] 99 % Dr. Gosia Delaney Work Phone: 4(765)419-124845 [place] [address] 04-19-2023 07:54-0500 Systolic blood pressure 108 mm[Hg] Dr. Gosia Delaney Work Phone: 0(847)634-934410 [place] [address] 11-02-2022 08:00-0400 Body height 157.[address] Gosia Delaney Work Phone: 7(610)128-166410 [place] [address] 11-02-2022 08:00-0400 Body mass index (BMI) [Ratio] 22 kg/m2 Dr. Gosia Delaney Work Phone: 7(768)084-472410 [place] [address] 11-02-2022 08:00-0400 Body temperature 98 [degF] Dr. Gosia Delaney Work Phone: 0(366)987-159010 [place] [address] 11-02-2022 08:00-0400 Body weight 54.[address] Gosia Delaney Work Phone: 4(206)051-548210 [place] [address] 11-02-2022 08:00-0400 Diastolic blood pressure 68 mm[Hg] Dr. Gosia Delaney Work Phone: 4(017)940-469010 [place] [address] 11-02-2022 08:00-0400 Heart rate 72 /min Dr. Gosia Delaney Work Phone: 9(538)793-319510 [place] [address] 11-02-2022 08:00-0400 Respiratory rate 16 /min Dr. Gosia Delaney Work Phone: 5(305)894-651010 [place] [address] 11-02-2022 08:00-0400 SaO2% (BldA) [Mass fraction] 99 % Dr. Gosia Delaney Work Phone: 7(690)824-064410 [place] [address] 11-02-2022 08:00-0400 Systolic blood pressure 120 mm[Hg] Dr. Gosia Delaney Work Phone: [facility] Encounters Encounter Date Encounter Type Care Provider Facility Start: 11-22-2024 ambulatory Gosia Pescadero Facility:[facility] Start: 11-20-2024 Evaluation and manag ement of inpatient Dr. Yakov Samano MD -Medical Surgical 3 Work Phone: Start: 11-19-2024 Non-patient / Non-visit Dr. Kassandra Samano MD -[facility] Start: 11-08-2024 End: 11-08-[address] Tuan Foster MD -[facility] Work Phone: Start: 11-08-2024 End: 11-08-[address] Gosia Delaney MD Work Phone: -[facility] Start: 07-12-2024 End: 07-12-[address] Gosia Delaney MD Work Phone: [facility] Work Phone: Start: 07-12-2024 End: 07-12-[address] Tina Sutherland DO -Laboratory, [facility] Office 3rd Ncr Start: 07-12-2024 End: 07-12-2024 ambulatory Gosia Delaney Facility:[facility] Start: 06-29-2024 End: 06-29-[address] Gosia Delaney MD -Pulmonary Services/Neurology Work Phone: Start: 06-29-2024 ambulatory [facility] Facility:[facility] Start: 06-29-2024 End: 06-29-2024 ambulatory Gosia Delaney Facility:[facility] Start: 06-21-2024 End: 06-21-[address] Gosia Delaney MD -Laboratory, [facility] Start: 06-21-2024 End: 06-21-2024 ambulatory Gosia Delaney Facility:[facility] Start: 01-22-2024 ambulatory Gosia Delaney Facility:[facility] Start: 01-19-2024 End: 01-19-2024 ambulatory Gosia Delaney Facility:[facility] Start: 01-17-2024 End: 01-17-2024 ambulatory Gosia Delaney Facility:[facility] Start: 01-14-2024 End: 01-14-2024 ambulatory Gosia Delaney Facility:[facility] Start: 12-20-2023 End: 12-20-2023 ambulatory Gosia Delaney Facility:[facility] Start: 08-30-2023 End: 08-30-2023 ambulatory MARY CARMEN CLINE Facility[facility] Start: 08-30-2023 End: 08-30-2023 Patient encounter procedure Mary Carmen Cline MD Work Phone: [facility] Comment on above: Symptomatic cholelit hiasis (Primary Dx) Start: 08-25-2023 End: 08-25-2023 ambulatory JESSY STAFFORD Facility:[facility] Start: 08-25-2023 End: 08-25-2023 Patient encounter procedure Jessy Stafford MD Work Phone: General Surgery Comment on above: Calculus of gallblad shelby without cholecystitis without obstruction (Primary Dx) Start: 07-06-2023 End: 07-06-[address] Gosia Delaney Work Phone: [facility] Work Phone: Start: 07-06-2023 End: 07-06-[address] Gosia Delaney Work Phone: [facility] Start: 07-03-2023 End: 07-03-2023 Emergency department patient visit Dr. Gosia Delaney Work Phone: [facility]Emergency Department Work Phone: Start: 06-07-2023 Non-patient / Non-visit Dr. Joni Delaney Work Phone: [facility] Start: 06-07-2023 End: 06-07-[address] Gosia Delaney Work Phone: [facility] Work Phone: Start: 06-07-2023 End: 06-07-[address] Gosia Delaney Work Phone: [facility] Work Phone: Start: 04-19-2023 End: 04-19-[address] Gosia Delaney Work Phone: [facility] Work Phone: Start: 04-12-2023 End: 04-12-2023 ambulatory [facility] Work Phone: Start: 04-12-2023 End: 04-12-2023 [facility] Start: 04-05-2023 End: 04-05-2023 ambulatory [facility] Work Phone: Start: 04-05-2023 End: 04-05-2023 Patient encounter procedure [facility] Work Phone: Start: 03-29-2023 End: 03-29-2023 ambulatory [facility] Work Phone: Start: 03-29-2023 End: 03-29-2023 Patient encounter procedure [facility] Work Phone: Start: 01-05-2023 End: 01-05-[address] Gosia Delaney Work Phone: [facility] Work Phone: Start: 01-05-2023 End: 01-05-[address] [facility] Work Phone: Start: 01-02-2023 End: 01-02-[address] [facility] Work Phone[facility] Start: 12-04-2022 End: 12-04-[address] Gosia Delaney Work Phone: [facility] Work Phone: Start: 12-04-2022 End: 12-04-[address] Gosia Delaney Work Phone: [facility] Start: 11-03-2022 Non-patient / Non-visit Dr. Joni Delaney Work Phone: [facility] Start: 11-03-2022 End: 11-03-[address] Gosia Delaney Work Phone: [facility] Work Phone: Start: 11-03-2022 End: 11-03-[address] Gosia Delaney Work Phone: [facility] Work Phone: Start: 11-02-2022 End: 11-02-[address] Gosia Delaney Work Phone: [facility] Work Phone: Start: 06-04-2022 End: 06-04-[address] Gosia Delaney Work Phone: [facility] Work Phone: Start: 06-04-2022 End: 06-04-[address] Gosia Delaney Work Phone: [facility] Start: 03-03-2022 Non-patient / Non-visit Dr. Joni Delaney Work Phone: [facility] Start: 03-03-2022 End: 03-03-[address] Gosia Delaney [facility] Procedures Date Procedure Procedure Detail Performing Clinician Start: 11-19-2024 Computed tomography of abdomen and pelvis with intravenous contrast Dr. Gosia Delaney MD Work Phone: Start: 11-19-2024 Plain chest X-ray Dr. Pat Delaney MD Work Phone: Start: 11-19-[address] Gosia Delaney MD Work Phone: Start: 07-03-2023 CT angiography of ch est with contrast Dr. Gosia Delaney Work Phone: Start: 07-03-2023 Plain chest X-ray Dr. Pat Delaney Work Phone: Start: 01-05-[address] Gosia landa Work Phone: Plan of Treatment Date Care Activity Detail Author Start: 12-04-2032 Urine microalbumin profile DTaP,Tdap,Td Vaccine (2 - Td or Tdap) [facility] Start: 12-17-2025 Screening for malignant neoplasm of colon [facility] Start: 11-20-2024 [facility] Start: 11-20-2024 Biopsy/Inj or Needle Placement Biopsy/Inj or Needle Placement [facility] Start: 11-20-2024 [facility] Start: 11-20-2024 Partial thromboplastin time, activated [facility] Start: 11-20-2024 Prothrombin time [facility] Start: 11-20-2024 Triacylglycerol lipase measurement [facility] Start: 11-20-2024 Hospital admission, emergency, from emergency room, medical nature [facility] Start: 11-19-2024 Care regimes management [facility] Start: 11-19-2024 Notification of physician [facility] Start: 11-19-2024 Ambulation without limitation [facility] Start: 11-19-2024 Following clinical pathway protocol [facility] Start: 11-19-2024 Vital signs measurements [facility] Start: 11-19-2024 End: 11-19-2024 [facility] Start: 11-19-2024 Admission procedure [facility] Start: 11-19-2024 Ultrasonography of abdomen Abdomen Limited [facility] Start: 11-19-2024 US Abdomen limited [facility] Start: 11-19-2024 End: 11-19-2024 [facility] Start: 07-03-2023 [facility] Start: 07-03-2023 [facility] Start: 05-10-2023 Advance Directive Discussion Advance Directive Discussion [facility] Start: 05-10-2023 Behavioral Health Screening Behavioral Health Screening [facility] Start: 2013 RSV Vaccine (1 - 1-dose 60+ series) RSV Vaccine (1 - 1-dose 60+ series) [facility] Start: 08-04-2003 Shingrix Vaccine (1 of 2) Shingrix Vaccine (1 of 2) [facility] Start: 1998 Diabetes Screening Diabetes Screening [facility] Start: 1998 Screening for malignant neoplasm of colon [facility] Start: 1988 Lipid panel Lipid Screening [facility] Start: 08-04-1971 Hepatitis C screening Hepatitis C Screening [facility] Start: 1955 Abdominal aortic aneurysm screening Abdominal Aortic Aneurysm Screening [facility] Alanine aminotransfe rase [Enzymatic activity/volume] in Serum or Plasma [facility] Albumin [Mass/volume ] in Serum or Plasma [facility] Alkaline phosphatase [Enzymatic activity/volume] in Serum or Plasma [facility] Anion gap in Serum or Plasma [facility] Bilirubin, total measurement [facility] BUN/Creatinine ratio [facility] Calcium [Mass/volume ] in Serum or Plasma [facility] Carbon dioxide, tota l [Moles/volume] in Central venous blood [facility] Creatinine [Mass/vol ume] in Serum or Plasma [facility] Erythrocyte mean cor puscular volume determination [facility] Glucose [Mass/volume ] in Serum or Plasma [facility] Hematocrit [Volume F raction] of Blood [facility] Hemoglobin [Mass/vol ume] in Blood [facility] INR in Blood by Coag ulation assay [facility] Leukocytes [#/volume ] in Blood [facility] Mean corpuscular hem oglobin concentration determination [facility] Mean corpuscular hem oglobin determination [facility] Measurement of renal function [facility] Neutrophil count [facility] Neutrophil percent differential count [facility] Patient Education ED Chest Pain, Uncertain Cause [facility] Work Phone: Patient referral [facility] Work Phone: Platelets [#/volume] in Blood [facility] Potassium measurement [facility] Red blood cell count [facility] Red cell distributio n width determination [facility] Serum chloride measurement [facility] Sodium measurement [facility] Total protein measurement [facility] Troponin T.cardiac [Mass/volume] in Serum or Plasma by High sensitivity method [facility] Urea nitrogen [Mass/ volume] in Serum or Plasma [facility] US Carotid arteries [facility] US Carotid arteries [facility] Payers Date Payer Category Payer Self-pay [id number] 2018 Medicare [id number] 2018 Medicare MEDICARE MEDICAR E A AND B [id number] 2018-Present [phone] [address] [address] [place] [address] Medicare [id number] 2018 Unknown [place] DICARE SUPPLEMENT [id number] 2018-Present [phone] [address] [place] [address] Indemnity [id number] 2016 Unknown [employer] [id number] 2013 Unknown [id number] Unknown [facility] [id number] Unknown [id number] Unknown [id number] Unknown [id number] Unknown [id number] Unknown [id number] Unknown [id number] Unknown [id number] Unknown [id number] Unknown [id number] Unknown [id number] Unknown [id number] Social History Date Type Detail Facility Start: 02-02-2022 End: 07-03-2023 Tobacco smoking status [facility] Unknown if ever smoked [facility] Start: 1955 Sex Assigned At Male [facility] Start: 08-25-2023 End: 11-19-2024 Tobacco smoking status [facility] Smokes tobacco daily [facility] History of tobacco use Cigarette Smoker [facility] Start: 08-25-2023 End: 08-30-2023 Cigarettes smoked current (pack per day) - Reported 0.8 [facility] Start: 08-25-2023 End: 08-30-2023 Tobacco use and exposure Smokeless tobacco non-user [facility] Start: 08-25-2023 End: 08-30-2023 Alcohol intake Current drinker of alcohol (finding) [facility] Start: 08-25-2023 End: 08-30-2023 Tobacco use panel [facility] National Score (1-10 0), lower number is lower risk 47 [facility] Start: 08-25-2023 Alcohol Comment occasional [facility] Start: 1955 Sex Assigned At Not on file [facility] Start: 07-26-2024 Sex Male (finding) [facility] Mental Status Date Assessment Result Facility 11-19-2024 Cognitive function Level Of Cons ciousness Awake;Alert;Appropriate [facility] Work Phone: 07-03-2023 Cognitive function Awake;Alert;A ppropriate;Follow s Commands [facility] Work Phone: Clinical Notes 07-03-2023 to 11-19-2024 Note Date & Type Note Facility 11-19-2024 History and physi severiano note [facility] 11-19-2024 Radiology Diagnostic study note [facility] Imaging Services [address] [place] [address] Abdomen/Pelvis W IV Cont ONLY MR#: [id number] Acct: [id number] Name: FAHAD DE LEON Rep #: [id number] : 1955 M 69 From: Chelsie Whitehead MD PCP: Dr. Gosia Delaney MD Status: REG ER Study:Abdomen/Pelvis W IV Cont ONLY Date of E xam: 11/19/24 Exam# [id number] Ordering Dr: Maria Luz Genao DO PROCEDURE: ABDOMEN/PELVIS W IV CONT ONLY 11/19/2024 REASON FOR EXAM: ABDOMINAL PAIN, ELEVATED WHITE BLOOD CELL TECHNIQUE: ABDOMEN/PELVIS W IV CONT ONLY Coronal and Sagittal reconstruction series were provided. CONTRAST: Isovue 370 VOLUME: 83 mL One or more dose reduction techniques were used (e.g., Automated exposure control, adjustment of the mA and/or kV according to patient size, use of iterative reconstruction technique. RADIATION DOSE SUMMARY: CTDlvol: 13.3 mGy DLP: 294 mGycm COMPARISON: Abdominal ultrasound 08/07/2020, CTA chest 07/03/2023 FINDINGS: Lung bases: Mild bibasilar atelectasis. Aortic and coronary calcifications. Pleural plaque along the left diaphragm. Liver: Mildly hypoattenuating. Small volume of perihepatic ascites. Gallbladder: Hydropic containing radiodense stones and with marked wall thickening and pericholecystic fluid, in addition to inflammatory stranding and fluid peripherally. Spleen: Unremarkable Pancreas: Normal size without evidence of mass surrounding inflammation or ductal dilation. Adrenals: Unremarkable Kidneys: No hydronephrosis or stone. Bladder: Unremarkable Reproductive Organs: Coarse prostatic calcifications. Bowel: Prominent rectal stool burden. Mild colonic wall thickening near the hepatic flexure, which may be reactive. Appendix: Surgically absent Lymph nodes: Prominent subcentimeter nodes in the upper abdomen. Vasculature: Diffuse aortic atherosclerotic calcifications. Bones: Degenerative changes of the spine. Remote left-sided rib fractures. Soft tissues: Unremarkable. CT/Abdomen/Pelvis W IV Cont ONLY IMPRESSION: Findings worrisome for acute cholecystitis. Of note, there is a small amount offree fluid adjacent to the liver and surrounding the gallbladder. Recommend Surgical consultation +/- ultrasound. Reading Location: [id number] CC: Dr. Gosia Delaney MD; Dr. Kevin Genao DO ~ Manager Gaming: Signed [facility] 11-19-2024 Radiology Diagnostic study note [facility] Imaging Services [address] [place] [address] [id number] Chest 1 View (Portable) MR#: [id number] Acct: [id number] Name: FAHAD DE LEON Rep #: [id number] : 1955 M 69 From: Chelsie Whitehead MD PCP: Dr. Gosia Delaney MD Status: PRE ER Study:Chest 1 View (Portable) Date of Exam: 11/19/24 Exam# [id number] Ordering Dr: Maria Luz Genao DO PROCEDURE: CHEST 1 VIEW (PORTABLE) 11/19/2024 REASON FOR EXAM: CHEST PAIN TECHNIQUE: Frontal view of the chest. COMPARISON: Chest radiograph and CT on 07/03/2023 FINDINGS: Hardware: None Heart: The heart size is normal. Lungs: Mild elevation of the left hemidiaphragm is unchanged. No focal consolidation or significant pleural effusion. Bones: Degenerative changes are identified within the thoracic spine. RAD/Chest 1 View (Portable) IMPRESSION: Stable appearance of the chest, without evidence of an acute cardiopulmonary abnormality. Reading Location: [id number] CC: Dr. Gosia Delaney MD; Dr. Kevin Genao DO ~ Manager Gaming: Signed [facility] 11-08-2024 Evaluation note Diagnosis Onset Date Resolution Carotid stenosis, asymptomatic acute November 08, 2024 7:56am Essential tremor chronic November 7:56am Acute cholecystitis acute November 20, 2024 12:30am Gallstone pancreatitis acute Ju ly 2024 12:30am [facility] Work Phone: 1(751) 409-908104-22-2024 NoteHNO ID: [id number] Author: MARY CARMEN CLINE MD Service: ? [...] which included preparing to see the patient, [id number] patient care, completing clinical (more content not included)...[facility]04-22-2024 Instructions* Patient Instructions* Mary Carmen Cline MD - 08/30/2023 2:36 [...] need to take medication or have surgery toremove their gallbladder. If the stones are in the bile ducts, they usually need to be removed by endoscopy. What is the gallbladder? The gallbladder is an organ that resembles a small pear. It is located under the liver on the rightside of the abdomen. The function of the gallbladder is to store and dispense bile, a fluid that isproduced by the liver and helps digest fats [...] people who take drugs that lower cholesterol [place] Indians and people of Citizen [place] descent What are the symptoms of gallstones? [...] abdomen, between the shoulder blades, or under theright shoulder. Other symptoms of gallstones include: sweating [...] magnet, radio waves, and a computer to producevery clear images of parts of the body. [...] to be treated. The treatment that is usedmost often for gallstones is surgery to remove [...] to remove the gallbladder with an open c holecystectomy through an incision in the abdomen.This procedure [...] food properly. If your gallbladder is removed, bilewill flow directly from your liver through the [...] (Actigall ) and chenodiol (Chenix ). Patients usuallyhave to take these drugs for months or even years in order to dissolve the gallstones. In many cases, gallstones may recur within five years in people who take these drugs. References National [place] of Diabetes and Digestive and Kidney Diseases. Gallstones Accessed 03/29/2014. [place] [employer]. Gallstones Accessed 03/29/2014. National [place] of Diabetes and Digestive and Kidney Diseases. ERCP (Endoscopic Retrograde Cholangiopancreatography) Accessed 03/29/2014. Copyright 3300-2880 The [facility]. All rights reserved. This information is provided by the [facility] and is not intended to replace the medical advice of your doctor or health care provider. Please consult your health care provider for advice about a specific medical condition. For additional health information, please contact the Center for Consumer Health Information at the [facility] or toll-free extension [phone]. If you prefer, you may visit [email or web address] or [email or web address]. This document was last reviewed on: 2014 [...] your digestive system. This blockage can cause bloating,nausea, vomiting, and pain in your abdomen, shoulder, back, or chest. Gallstones can also block theducts that channel the bile from the liver [...] through additional small incisions. Your gallbladder is removedthrough one of these incisions. What are the potential risks and complications? The risk of complications is very low, however, potential risks might include: Bleeding Infection Common bile duct injury Minor shoulder pain (from the carbon dioxide gas) Bile leakage What are the benefits of laparoscopic cholecystectomy? Less discomfort than regular surgery [place] hospital stay, with a quicker recovery time [...] closed using surgical clips and stitches. References [employer] [employer]. Cholecystectomy Accessed 11/15/2015. [employer] of [place] [employer]. Laparoscopic Gallbladder Removal (Patient Information from [facility] Accessed 11/15/2015. Copyright 8308-5338 The [facility]. All rights reserved This information is provided by the [facility] and is not intended to replace the medical advice of your doctor or health care provider. Please consult your health care provider for advice about a specific medical condition. For additional health information, please contact the Center for [employer] Health Information at the [facility] or toll-free extension [phone]. If you prefer, you may visit [email or web address] or [email or web address]. This document was last reviewed on: 2015 documented in this [facility]04-[facility]24 History of Present illness Narrative* Mary Carmen Cline MD - 08/30/2023 2:35 PM EDT Fahad De Leon Jr is a 68 [...] and only lasted seconds to minutes. This episodewas stain in the right upper quadrant. He [...] calcified stones and a distended ladder. His lipasewas normal his white count was normal and [...] as a youth and it appears that hehas a feeding tube scar site as well.. Musculoskeletal: Joint pain Back. Lymph Nodes: No cervical lymphadenopathy and No supraclavicular lymphadenopathy. I spent a total of 24 minutes on the date of the service which included preparing to see the patient, [id number] patient care, completing clinical documentation, obtaining and/or [...] so I suspect it is more thoracolumbar relatedthan intra-abdominal he related. I did discuss the [...] these episodes like he had that sent himto the emergency room more frequently than we need to talk about removing his gallbladder. He does have calcified stone so he is not a candidate for dissolution therapy. Patient will call me if he starts having more problems. Mary Carmen Cline M.D., FACS documented in this encounterK[facility]04-17-2024 NoteHNO ID: [id number] Author: JESSY STAFFORD MD Service: ? Author Type: Physician Type: Progress Notes Filed: 08/28/2023 15:26 Note Text: Fahad Gaxiola Moises Jr 1955 REFERRING PHYSICIAN: No ref. provider found CHIEF COMPLAINT: New Patient and Abdominal Pain HPI: The patient is a 68 year old male presents with abnormal findings on gallbladder ultrasound. He had presented to [facility] ED with right lower rib pain. [...] entered by the nurse and reviewed by ok Nursing Notes: Naila Looney MA 08/25/2023 2:58 [...] (more content not included)... [facility]04-17-2024 History of Present illness Narrative* Jessy Stafford MD - 08/25/2023 3:00 PM EDT Fahad De Leon Jr 1955 REFERRING PHYSICIAN: No ref. provider found CHIEF COMPLAINT: New Patient and Abdominal Pain HPI: The patient is a 68 year old male presents with abnormal findings on gallbladder ultrasound. He had presented to [facility] ED with right lower rib pain. [...] entered by the nurse and reviewed by ok Nursing Notes: Naila Looney MA 08/25/2023 2:58 [...] (98.3 F), height 160 cm (5' 3), .2 kg (119 lb 6.4 oz), SpO2 98%. [...] present with him. Will refer patient to [facility] for consideration of gallbladder surgery. The patient states to call , patient's as patient has difficulty hearing, can leave voice mail. I personally made call to [facility] general surgery for them to contact patient [...] records from other medical facilities such as [facility], [id number] patient care, obtaining oral medical history from the patient in this encounter, performing a medically appropriate examination, counseling and educating the patient/family/caregiver, and ordering and/or scheduling of medications/tests/procedures, and completing appropriate medical documentation. Jessy Stafford MD documented in this encounterKet[facility] Health04-17-2024 Nurse Note* Naila Looney MA - 08/25/2023 2:55 PM EDT REVIEW OF SYSTEMS: General: The patient denies [...] N/A Naila Looney MA documented in this encounterKettering Health02-24-2024 Discharge summary Author Lionel Ocasio [facility] July 03, 2023 2:51pm Note Date/Time July 03, 2023 12:26pm [facility] Medical Records Department [address] [place] [address] Emergency Department Summary 07/03/23 MR#: [id number] Acct: [id number] Name: FAHAD DE LEON Rep #:[id number] : 1955 67 From: Lionel Ocasio MD [...] DAILY 08/05/21 [History Last Taken Unknown] omega 2-thn-hru-fish oil 300 mg-1,000 mg capsule,delayed release (Fish [...] details: gym frequency: 3-4 times per week angie/mosque: Religion seatbelt use: always ROS ROS ED ROS [...] sharp another test before. He can outpatient follow- up for further evaluation if he wanted to [...] % (Auto) 67.7 Lymph % (Auto) 19.8 Hanson % (Auto) 7.2 Eos % (Auto) 4.6 [...] rate of 62 no acute signs of [place] or ischemia. Discharge Plan Triage Chief Complaint: [...] mg tablet 500 mg PO DAILY omega 1-ytd-myd-fish oil [Fish Oil] 300-1,000 mg capsule,delayed release(DR/EC) [...] your Primary Care Provider. Call [facility] ([phone]) or report to the closest Emergency Room. Call 911 if necessary. 07/03/23 1451 <Electronically signed by Lionel Ocasio MD> Cosigner Signature (if applicable): CC: Dr. Gosia Delaney MD ~ Signed [facility] Work Phone: Evaluation noteNo assessment information available [facility] Work Phone: Evaluation note* Diagnosis Onset Date Resolution Status Carotid stenosis, asymptomatic acute Essential tremor chronic [facility] Work Phone: Evaluation note* Diagnosis Calculus of gallbladder without cholecystitis without obstruction- Primary Calculus of gallbladder without mention of cholecystitis or obstruction [facility] Diagnosis Symptomatic cholelithiasis- Primary Calculus of gallbladder without mention of cholecystitis or obstruction documented in this encounter [facility]* Diagnosis Onset Date Resolution Status Admit Date Carotid stenosis, asymptomatic acute November 08, 2024 7:56am Essential tremor chronic November 7:56am [facility] Work Phone: History and physical note Author Yakov Samano [facility] Note Date/Time November 19, 2024 10:5 8pm [facility] Medical Records Department [address] [place] [address] H&P Exam - Surgical 11/19/24 2252 MR#: [id number] Acct: [id number] Name: FAHAD DE LEON Rep #:[id number] : 1955 69 From: Yakov durán MD PCP: Dr. Gosia Delaney MD Status:[facility] ER Location: ED HPI - General HPI Narrative FAHAD DE LEON, is a 69 M who presents with abdominal pain. Patient reports the pain started yesterday. He has been feeling unwell for a few days. He currently denies any nausea or vomiting but he did vomit once today. [facility] Medical History Alcohol abuse Alcoholism Carotid stenosis, bilateral Chest pain COPD (chronic obstructive pulmonary disease) Heart disease Herniated disc High cholesterol High triglycerides Hyperlipidemia Hypertension Liver disease Lung disease Shortness of breath Home Medications ?Medication ?Instructions ?Recorded ?Last Taken ?Type amlodipine 5 mg tablet 5 mg PO DAILY 03/30/17 Unkno wn History aspirin 81 mg chewable tablet 81 mg PO DAILY@0800 03/11 05/26 Unknown History levalbuterol tartrate 45 15 g IH DAILY PRN Wheezing 1 05/30/16 Unknown History mcg/actuation aerosol inhaler levocetirizine 5 mg tablet 5 mg PO DAILY 03/30/17 Unkn own History potassium citrate 10 mEq (1,080 5 meq PO DAILY 7 Unknown History mg) tablet,extended release rosuvastatin 20 mg tablet 20 mg PO DAILY 03/30/17 Unkn own History umeclidinium 62.5 mcg/actuation 62.5 mcg IH DAILY PRN Wheezing 03/30/17 Unknown History blister powder for inhalation calcium 500 mg (as carbonate)-D3 1 tab PO BID 09/11/20 Unknown History 2.5 mcg (100 unit) chewable tablet levothyroxine 25 mcg tablet 25 mcg PO DAILY 09/16/20 U nknown History thiamine mononitrate (vit B1) 100 100 mg PO DAILY PRN 09/16/20 Unknown History mg tablet metoprolol succinate 50 mg 50 mg PO DAILY 04/07/21 Unk nown History tablet,extended release 24 hr ascorbate calcium (vitamin C) 500 500 mg PO DAILY 07/09 01/29 Unknown History mg tablet omega 4-mjt-zsr-fish oil 300 1 cap PO BID 02/02/22 Unk nown History mg-1,000 mg capsule,delayed release (Fish Oil) Allergy/AdvReac Type Severity Reaction Status Date / Time No Known Allergies Allergy Verified 11/19/24 19:51 Family History Brother Heart disease Myocardial infarction [...] details: gym frequency: 3-4 times per week angie/mosque: Religion seatbelt use: always ROS Constitutional Constitutional: Denies anorexia, chills, fatigue or fever(s) Eyes Eyes: Denies blurry vision ENT HEENT: Denies abnormal hearing Cardiovascular Cardiovascular: Denies chest pain Respiratory/Chest Respiratory/Chest: Denies cough or dyspnea Gastrointestinal Gastrointestinal: Reports abdominal pain and vomiting; Denies coffee ground emesis, constipation, diarrhea or nausea Genitourinary Genitourinary: Denies change in urinary stream Integumentary Integumentary: Denies jaundice or new lesions Neurologic Neurologic: Denies abnormal gait Psychiatric Psychiatric: Denies anxiety Endocrine Endocrinology: Denies flushing Vital Signs Vital Signs Vital Signs: 11/19/24 19:54 11/19/24 20:00 11/19/24 20:08 Temperature 98.0 F Temperature Source Oral Pulse Rate 55 L 56 L Respiratory Rate 14 15 Blood Pressure 157/81 H Blood Pressure Mean 106 Pulse Ox 98 97 Oxygen Delivery Method Room Air Room Air 11/19/24 20:15 11/19/24 20:30 11/19/24 20:45 Temperature Temperature Source Pulse Rate 60 61 60 Respiratory Rate 13 15 12 Blood Pressure Blood Pressure Mean Pulse Ox 99 98 97 Oxygen Delivery Method 11/19/24 20:57 11/19/24 21:00 11/19/24 21:15 Temperature Temperature Source Pulse Rate 65 61 63 Respiratory Rate 18 13 10 L Blood Pressure 157/80 H 172/68 H 168/62 H Blood Pressure Mean 88 96 93 Pulse Ox 96 98 100 Oxygen Delivery Method 11/19/24 21:15 11/19/24 21:30 11/19/24 21:45 Temperature Temperature Source Pulse Rate 73 65 Respiratory Rate 17 16 Blood Pressure 168/62 H 168/89 H 176/82 H Blood Pressure Mean 93 106 108 Pulse Ox 91 93 Oxygen Delivery Method 11/19/24 22:00 11/19/24 22:15 Temperature Temperature Source Pulse Rate 63 Respiratory Rate 14 Blood Pressure Blood Pressure Mean Pulse Ox 96 97 Oxygen Delivery Method Weight Weight: 123 lb 7.342 oz Body Mass Index (BMI) 21.9 Physical Exam Const oriented x3 and no apparent distress Resp normal respiratory effort Cardio regular rate and regular rhythm GI soft to palpation Palpation: tender RUQ Extremity normal to inspection Results Lab / Micro Data 11/19/24 20:00 11/19/24 20:00 Labs: Laboratory Results - last 24 hr 11/19/24 20:00: WBC 16.5 H, RBC 4.43 L, Hgb 14.0, Hct 39.2 L, MCV 88.5, MCH 31.6, MCHC 35.7, RDW Std Deviation 41.6, RDW Coeff of Roro 12.8, Plt Count 227, MPV 10.5, Immature Gran % (Auto) 0.500, Neut % (Auto) 84.9 H, Lymph % (Auto) 8.8L, Hanson % (Auto) 4.3, Eos % (Auto) 1.3, Baso % (Auto) 0.2, Absolute Neuts (auto)14.0 H, Absolute Lymphs (auto) 1.45, Nucleated RBC % 0, Sodium 130 L, Potassium 3.7, Chloride 93 L, Carbon Dioxide 22.0, Anion Gap 15, BUN 17, Creatinine 0.98, Estim Creat Clear Calc 54.76, Est GFR (MDRD) Non-Af 83, BUN/Creatinine Ratio 17.7, Glucose 136 H, Calcium 9.2, Total Bilirubin 1.04, Direct Bilirubin 0.76 H,AST 217 H, ALT 126 H, Alkaline Phosphatase 106, Troponin T High Sens 10, Total Protein 6.7, Albumin 4.3, Globulin 2.4, Lipase 2936 H 11/19/24 22:14: Troponin T Hi Sens 2 Hr 10 Imaging Radiology Impression Chest X-Ray 11/19/24 20:15 IMPRESSION: Stable appearance of the chest, without evidence of an acute cardiopulmonary abnormality. Reading Location: [facility] Abdomen/Pelvis CT 11/19/24 20:52 IMPRESSION: Findings worrisome for acute cholecystitis. Of note, there is a small amount offree fluid adjacent to the liver and surrounding the gallbladder. Recommend Surgical consultation +/- ultrasound. Reading Location: [id number] Assessment & Plan Assessment/Plan (1) Acute cholecystitis: (2) Gallstone pancreatitis: PLAN: Plan Patient has gallstone pancreatitis along with acute cholecystitis. The patient has a lipase of 2900 as well as some slight increase in the AST and ALT. Bilirubin is normal. The patient had a CT scan which showed a large amount of inflammation around the gallbladder with thickening and pericholecystic fluid aswell as fluid around the liver. This appears very inflamed on the CT scan. I believe this has been brewing for several days longer than he has had pain. It is likely delayed diagnosis due to his diabetes. I would like to order a cholecystostomy tube for drainage of the biliary tree. I explained that his risks of bleeding and injury to surrounding organs are increased due to the inflammation and I recommend cholecystostomy tube at this point and delayed cholecystectomy. I will start the patient on a high level of IV fluids for his pancreatitis and recheck labs in the morning and order a cholecystostomy tube for the morning. Yakov Samano MD Pager: [facility] [address] [place] [address] Outpatient [place], [address] [place] [address] Office: 11/19/24 0478 <Electronically signed by Yakov Samano MD> Cosigner Signature (if applicable): CC: Dr. Yakov Samano MD; Dr. Gosia Delaney MD~ Signed [facility] Work Phone: Hospital Discharge instructions Additional Instructions [...] your heart and is not a blood clot.[facility] Work Phone: Reason for referral (narrative)No reason for referral information availableWTrinity Health System Work Phone: Chief Complaint and Reason for [...] Essential tremor November 08, 2024 7:56a m Chief Complaint Admit Date 1 Y FU November 08, 2024 7:56a m chest pain November 19, 2024 10:5 2pm ACUTE CHOLECYSTITIS & PANCREATITIS November 20, 2024 12:30am Reason for Visit Admit Date Carotid stenosis, asymptomatic November 08, 2024 7:56am Essential tremor November 08, 2024 7:56a m Acute cholecystitis November 20, 2024 12:3 0am Gallstone pancreatitis November 20, 2024 1 2:30am Family History Relationship Condition Age at Onset Recorded Date/T blaise brother Cardiac disease Unknown Myocardial infarction Unknown father Cardiac disease Unknown Advance Directives Advance Directive Response Recorded Date/ Time Living Will Yes March 30, 9:20pm Power of Senior Science Consultant Yes March 30, 2017 9:20pm Advance Directive Response Recorded Date/ Time Living Will Yes March 30, 10:20pm Power of Senior Science Consultant Yes March 30, 2017 10:20pm Advance Directive Response Recorded Date/ Time Living Will No July 03 11:56am Power of Senior Science Consultant No July 03, 2023 11:56am Advance Directive Response Recorded Date/ Time Living Will No July 03 12:56pm Do you have a Healthcare Power of Senior Science Consultant? No July 03, 2023 12:56pm Advance Directive Response Recorded Date/ Time Living Will No July 03 12:56pm Do you have a Healthcare Power of Senior Science Consultant? No July 03, 2023 12:56pm Do you have a Healthcare Power of Senior Science Consultant? Yes November 19, 2024 7:51pm Name of Medical Power of Senior Science Consultant November 19, 2024 7:51pm Summary Purpose Additional Source Comments Care Teams [...] Delaney MD Primary Care Provider, Referring P rovider Active Dr. Tuan Foster MD Attending Provider Active Team Status: Active Member Role Status Dates Dr. Gosia Delaney MD Primary Care Provider Active Dr. Gosia Melendez MD Attending Provider Active Team Status: Inactive Member Role Status Dates Dr. Gosia Delaney MD Primary Care Provider, Attending P rovider Active Team Status: Inactive Member Role Status Dates Dr. Gosia Delaney MD Primary Care Provider Active Dr. Bradley Eisenberg MD Attending Provider Active Team Status: Active Member Role Status Dates Dr. Gosia Delaney MD Primary Care Provider, Referring P rovider Active Dr. Gosia Melendez MD Attending Provider Active Team Status: Inactive Member Role Status Dates Dr. Gosia Delaney MD Primary Care Provider Active Dr. Lionel Ocasio MD Emergency Provider Active Team Status: Inactive Member Role Status Dates Dr. Gosia Delaney MD Primary Care Provider Active Dr. Lionel Ocasio MD Attending Provider, Emergency Pro vider Active Chief Mechanical Officer Relationship Specialty Start Date End Date Gosia Delaney MD [address] [place] [address] PCP - General Family Medicine 07/26/23 Chief Mechanical Officer Relationship Specialty Start Date End Date Gosia Delaney MD [address] [place] [address] PCP - General Family Medicine 07/26/23 Team [...] November 08, 2024 End: November 08, 2024 Team Status: Inactive Member Role/Relationship Status Dates Dr. Gosia Delaney MD Primary Care Provider Active Start: November 08, 2024 End: November 08, 2024 Dr. Gosia Delaney MD Referring Provider Active St art: November 08, 2024 End: November 08, 2024 Dr. Tuan Foster MD Attending Provider Active Start: November 08, 2024 End: November 08, 2024 Team Status: Active Member Role/Relationship Status Dates Dr. Gosia Delaney MD Primary Care Provider Active Start: November 19, 2024 Dr. Kevin Genao DO Emergency Provider Active Start: November 19, 2024 Dr. Yakov Samano MD Attending Provider Active Start: November 19, 2024 Team Status: Active Member Role/Relationship Status Dates Dr. Gosia Delaney MD Primary Care Provider Active Start: November 20, 2024 Dr. Kevin Genao DO Emergency Provider Active Start: November 20, 2024 Dr. Yakov Samano MD Admit Provider Active Start: November 20, 2024 Dr. Yakov Samano MD Attending Provider Active Start: November 20, 2024 Goals (unrecognized section and content) Goals [...] or prosecute any alcohol or drug abuse patient.[facility] the event this information is protected by the Federal Confidentiality of Alcohol and Drug Abuse Patient Records regulations: The Federal rules restrict any use of the information to criminally investigate or prosecute any alcohol or drug abuse patient.[facility] Reason for Visit (unrecogniz ed section and content) Reason Comments New Patient Abdominal Pain Reason Comments GB (unrecognized sect ion and content) No Status Records FoundNo Status Records FoundNo Status Records Found INFORMATION SOURCE (unrecogn ized section and content) DATE CREATED AUTHOR 08/29/[address] [facility] DATE CREATED AUTHOR AUTHOR'S ORGANIZ ATION 08/31/2023 [facility] DATE CREATED AUTHOR AUTHOR'S ORGANIZ ATION 11/17/2024 [facility] FOR RECORDS PERTAINING TO PATIENTS WHO [...] BE BASED ON THE PRIMARY CLINICAL RECORDS. [facility] [employer] provides no warranty or guarantee of the accuracy or completeness of information in this document.
[2024-11-20] MEDS: Piperacil/Tazobactam 3.375 GM in 0.9% Normal Saline (50mL MB+) 50 ML IV ×2 (06:30→13:41)
--- NOTE | 2024-11-20 10:31 | CASEMGMT ---
Dx: Acute Cholecystitis and pancreatitis LACE: 2 6-Clicks: 24 Medical record reviewed and patient evaluated for identification of discharge planning needs. Based on this review, at this time criteria are not present to indicate a need for discharge planning. Will remain available to assist with discharge planning needs as identified or requested.
[2024-11-20] MEDS: Midazolam 2 MG/2 ML Syringe IV (12:15)
[2024-11-20] MEDS: fentaNYL 100 MCG/2 ML Ampul IV (12:26)
[2024-11-20] MEDS: Lidocaine 2% (20 ml mdv) 20 ML Vial INFILT (12:30)
--- NOTE | 2024-11-20 16:52 | NURSING ---
report called to [facility]- spoke with soila lundy
--- NOTE | 2024-11-20 22:51 | CT_ITS ---
PROCEDURE: Percutaneous cholecystostomy. 11/20/2024 REASON FOR EXAM: ACUTE CHOLECYSTITIS TECHNIQUE: The procedure as well as the benefits and possible complications including infection and bleeding were explained to the patient the patient's . Informed consent was obtained. Conscious sedation was performed. The patient received 2 mg of Versed and 50 mcg of fentanyl intravenously. Conscious sedation was started at 12:15 p.m. and terminated at 12:43 p.m.. The patient was independently monitored by the department nurse. One or more dose reduction techniques were used (e.g., Automated exposure control, adjustment of the mA and/or kV according to patient size, use of iterative reconstruction technique). RADIATION DOSE SUMMARY: CTDlvol: 22 MGy DLP: 474.59 mGycm COMPARISON: Prior CT scan of the abdomen and pelvis dated November 19, 2024. FINDINGS: The patient was in the supine position. The patient became agitated and aggressive. An 8 [place] catheter was placed into the gallbladder lumen. Approximately 25 cc of dark brown fluid was aspirated. The patient became more aggressive and pulled the catheter out. The patient was stepping off the table. The procedure was terminated. CT/Abscess/Fistula/Sinus Tract IMPRESSION: Attempted percutaneous cholecystostomy tube placement. The patient was very un cooperative as described. 25 cc of dark brown colored fluid was aspirated. Reading Location: [place] [id number]
--- NOTE | 2024-11-21 14:14 | PCM.DC.SUM ---
Providers Date of Admission: 11/19/24 Primary Care Physician: Dr. Parmjit Delaney MD Reason For Visit: ACUTE CHOLECYSTITIS & PANCREATITIS Diagnosis Discharge Diagnosis (1) Acute cholecystitis: Status: Acute Code(s): K81.0 - Acute cholecystitis (2) Gallstone pancreatitis: Status: Acute Code(s): K85.10 - Biliary acute pancreatitis without necrosis or infection Plan Patient has gallstone pancreatitis along with acute cholecystitis. The patient has a lipase of 2900 as well as some slight increase in the AST and ALT. Bilirubin is normal. The patient had a CT scan which showed a large amount of inflammation around the gallbladder with thickening and pericholecystic fluid as well as fluid around the liver. This appears very inflamed on the CT scan. I believe this has been brewing for several days longer than he has had pain. It is likely delayed diagnosis due to his diabetes. I would like to order a cholecystostomy tube for drainage of the biliary tree. I explained that his risks of bleeding and injury to surrounding organs are increased due to the inflammation and I recommend cholecystostomy tube at this point and delayed cholecystectomy. I will start the patient on a high level of IV fluids for his pancreatitis and recheck labs in the morning and order a cholecystostomy tube for the morning. Yakov Samano MD Pager: [facility] [address] [place] [address] [place] [address] Office: Medications at Discharge Home Medications amlodipine 5 mg tablet 5 mg PO DAILY 03/30/17 aspirin 81 mg chewable tablet 81 mg PO DAILY@0800 03/30/17 levalbuterol tartrate 45 mcg/actuation aerosol inhaler 15 g IH DAILY PRN Wheezing 03/30/17 levocetirizine 5 mg tablet 5 mg PO DAILY 03/30/17 potassium citrate 10 mEq (1,080 mg) tablet,extended release 5 meq PO DAILY 03/30/17 rosuvastatin 20 mg tablet 20 mg PO DAILY 03/30/17 umeclidinium 62.5 mcg/actuation blister powder for inhalation 62.5 mcg IH DAILY PRN Wheezing 03/30/17 calcium 500 mg (as carbonate)-D3 2.5 mcg (100 unit) chewable tablet 1 tab PO BID 09/11/20 levothyroxine 25 mcg tablet 25 mcg PO DAILY 09/16/20 thiamine mononitrate (vit B1) 100 mg tablet 100 mg PO DAILY PRN 09/16/20 metoprolol succinate 50 mg tablet,extended release 24 hr 50 mg PO DAILY 04/07/21 ascorbate calcium (vitamin C) 500 mg tablet 500 mg PO DAILY 08/05/21 omega 6-poi-wtl-fish oil 300 mg-1,000 mg capsule,delayed release (Fish Oil) 1 cap PO BID 02/02/22 Hospital Course Operations None Procedures None Summary of Care Provided Hospital Course: The patient was admitted with acute cholecystitis. He was also admitted with gallstone pancreatitis. I ordered a cholecystostomy tube to be placed but it was unable to be placed due to radiology not being able to sedate him adequately. The patient was then transferred to an outside hospital for IR drainage under sedation. Weight / BMI Weight Weight: 119 lb 11.376 oz Body Mass Index (BMI) 21.9 ABG / Lab / Microbiology Data 11/20/24 00:40 11/20/24 00:40 Laboratory: Laboratory Results - last 24 hr 11/20/24 13:52: POC Glucose 114 H D/C Instructions DC O2, CPAP, BIPAP Needs Home O2 Discharge instructions: No Meaningful Use Info Meaningful Use Meaningful Use Diagnoses (Choose all that apply): None applicable Discharge Plan Admission Admit Date/Time: 11/19/24 22:49 Attending Provider: Yakov Samano Primary Care Provider: Parmjit Delaeny Instructions Patient Instructions: Cedrick Medina Drain Tube Dc, Post Op Drain Emptying Steps Discharge Orders/Prescriptions Prescriptions: No Action thiamine mononitrate (vit B1) 100 mg tablet 100 mg PO DAILY PRN calcium carbonate-vitamin D3 500-100 mg-unit tablet,chewable 1 tab PO BID Patient Comments: TAKE ONE TABLET BY MOUTH TWICE DAILY levothyroxine 25 mcg tablet 25 mcg PO DAILY Patient Comments: TAKE 1 TABLET BY MOUTH EVERY DAY metoprolol succinate 50 mg tablet extended release 24 hr 50 mg PO DAILY ascorbate calcium (vitamin C) 500 mg tablet 500 mg PO DAILY omega 9-cwe-nan-fish oil [Fish Oil] 300-1,000 mg capsule,delayed release(DR/EC) 1 cap PO BID amlodipine 5 MG tablet 5 mg PO DAILY potassium citrate 10 MEQ tablet extended release 5 meq PO DAILY aspirin 81 MG tablet,chewable 81 mg PO DAILY@0800 rosuvastatin 20 MG tablet 20 mg PO DAILY levalbuterol tartrate 15 GM HFA aerosol inhaler 15 g IH DAILY PRN (Reason: Wheezing) levocetirizine 5 MG tablet 5 mg PO DAILY umeclidinium 62.5 MCG blister with device 62.5 mcg IH DAILY PRN (Reason: Wheezing) Referrals / Follow Up: Parmjit Delaney MD [Primary Care Provider] - Disposition Disposition (needs filled in before D/C Order can be placed): [facility]
== END 2024-11-20 19:00 | disposition short-term general hospital (02) | DRG 444 ==
LOC: ED 22:56 → MS3 11-20 02:50
PROVIDERS: Admitting Provider Surgery; Emergency Provider Emergency Medicine; PCP Family Medicine; Visit Provider Surgery
DX: K81.0 Acute cholecystitis (principal); K85.10 Biliary acute pancreatitis without necrosis or infection; J44.9 Chronic obstructive pulmonary disease, unspecified; E11.9 Type 2 diabetes mellitus without complications; F10.20 Alcohol dependence, uncomplicated; I10 Essential (primary) hypertension; K82.8 Other specified diseases of gallbladder; F17.210 Nicotine dependence, cigarettes, uncomplicated; E78.5 Hyperlipidemia, unspecified; Y90.9 Presence of alcohol in blood, level not specified
CPT/HCPCS: 20501; 71045; 74177; 76705; 77012; 80048; 80053; 80076; 82962; 83690; 84484; 85025; 85610; 85730; 93005; 99156; 99285; Q9967; A4216; J2405

== ENCOUNTER → 2024-12-04 | Outpatient (CLI) | payer MEDICARE, BC, SELFPAY ==
[2024-12-04 17:55] LABS: Hematocrit 38.4 % (40-54); Hemoglobin 13.6 g/dL (13.0-16.5); Immature Granulocytes Count 0.040 X10^3/uL (0.0-0.0); Mean Corp Hgb Conc 35.4 g/dL (32-36); Mean Corpuscular Volume 87.7 fL (80-94); Mean Platelet Vol. 10.3 fl (6.2-12.0); NRBC Flagged by Analyzer 0 % (0-5); Platelet Count 406 K/mm3 (150-450); RBC Distribution Width CV 12.2 % (11.6-14.6); RBC Distribution Width SD 39.5 fl (35.1-43.9); Red Blood Count 4.38 M/mm3 (4.6-6.2); White Blood Count 7.8 K/mm3 (4.4-11.0)
[2024-12-04 18:37] LABS: Osmolality, Serum 268 mOsm/KG (280-301)
[2024-12-04 18:41] LABS: AST(SGOT) 24 U/L (<=37); Alanine Aminotransfer ALT/SGPT 24 U/L (<=46); Albumin, Serum 4.5 g/dL (3.4-4.8); Alkaline Phosphatase 77 U/L (40-129); Anion Gap 13 (5-15); BUN 11 mg/dL (4-19); BUN/Creat Ratio 10.1 RATIO (10-20); Calcium,Total 9.8 mg/dL (7.6-11.0); Carbon Dioxide 23.9 mmol/L (21.0-32.0); Chloride 90 mmol/L (98-108); Globulin 3.0 g/dL (2.2-4.2); Glucose 113 mg/dL (70-99); Potassium 4.2 mmol/L (3.3-5.1)
[2024-12-04 18:43] LABS: CRP < 3.00 mg/L (0.0-3.0)
--- OUTSIDE RECORDS SUMMARY | 2024-12-04 23:25 | XMS RPT_ITS | CCD ---
Author Organization [facility] Care Team Providers Care Turbine Subassembler Name Role Phone Dr. Gosia Delaney Primary Care Provider Dr. Gosia Melendez Attending Provider 1([facility])-[phone] Tuan Foster Referring Provider Dr. Gosia Delaney Primary Care Provider [phone] Gosia Delaney Referring Provider 1([facility])[phone] Dr. Tuan Foster Attending Provider Dr. Gosia Melendez Attending Provider 1([facility])-[address] Tuan Foster Referring Provider Dr. Gosia Delaney Primary Care Provider [phone] Gosia Delaney Referring Provider [phone] Dr. Tuan Foster Attending Provider Dr. Gosia Melendez Attending Provider 1([facility])[phone] Gosia Delaney MD Primary Care Provider [phone] JESSY STAFFORD Attending Unavailable GOSIA DELANEY Primary Care Unavailable Gosia Delaney MD Primary Care Provider [phone] MARY CARMEN LARA Attending Unavailable GOSIA DELANEY Primary Care Unavailable Dr. Gosia Delaney MD Primary Care Provider [phone] Gosia Delaney MD Attending Provider [phone] Gosia Delaney MD Referring Provider [phone] Tina Sutherland DO Attending Provider Dr. Gosia Delaney MD Primary Care Provider [phone] Rhett CADET, Dr. Parnell Referring Provider Kristin CADET, Dr. Dickerson Attending Provider [phone] Rhett CADET, Dr. Parnell Primary Care Provider Dr. Kevin Genao DO Emergency Provider Jazmyne CADET, Dr. Nagy Attending Provider [phone] Jazmyne CADET, Dr. Nagy Admit Provider Dr. Kevin Genao DO Emergency Provider Jazmyne CADET, Dr. Nagy Admit Provider Jazmyne CADET, Dr. Nagy Attending Provider [phone] Delaney, Gosia Primary Care Unavailable Delaney, Gosia Attending Unavailable Delaney, Gosia Primary Care Unavailable Tuan Foster Attending Unavailable Tuan Foster Referring Unavailable Delaney, Gosia Primary Care Unavailable Delaney, Gosia Attending Unavailable Delaney, Gosia Referring Unavailable Delaney, Gosia Primary Care Unavailable Delaney, Gosia Attending Unavailable Delaney, Gosia Referring Unavailable Delaney, Gosia Primary Care Unavailable Franck Shelby Attending Unavailable Delaney, Gosia Referring Unavailable Yakov Samano Attending Unavailable Delaney, Gosia Primary Care Unavailable Yakov Samano Consulting Unavailable Jazmyne Yakov Attending Unavailable Delaney, Gosia Primary Care Unavailable Adriana Samanoony Admitting Unavailable Delaney, Gosia Primary Care Unavailable Tuan Foster Attending Unavailable Delaney, Gosia Referring Unavailable Delaney, Gosia Primary Care Unavailable Tina Sutherland Attending Unavailable Delaney, Gosia Primary Care Unavailable Delaney, Gosia Attending Unavailable Delaney, Gosia Primary Care Unavailable Delaney, Gosia Attending Unavailable Delaney, Gosia Referring Unavailable Delaney, Gosia Primary Care Unavailable Delaney, Gosia Attending Unavailable Delaney, Gosia Referring Unavailable Yakov Samano Admitting Unavailable Yakov Samano Attending Unavailable Delaney, Gosia Primary Care Unavailable Delaney, Gosia Primary Care Unavailable Delaney, Gosia Attending Unavailable ADRIANA TERAN Admitting Unavailsebastián e YAKOV SAMANO Referring Unavailabl e DELANEY, GOSIA A Primary Care Unavailable KERWIN AGUILAR Attending Unavailable ROBERTO RAMON Consulting Unavailable Allergies Allergy Classification Reported Allergen(s) Allergy Type Date of Onset Reaction(s) Facility (1 source) fentaNYL Drug Allergy 11-20-2024 [facility] Repository (1 source) Midazolam Drug Allergy 11-20-2024 [facility] Repository Medications Current Medications Medication Drug Class(es) Dates Sig (Normalized) Sig (Original) amLODIPine 5 mg oral tablet (15 sources) Dihydropyridine Calcium Channel Donna Start: 03-30-2017 take 1 tablet by mouth once daily Amlodipine 5 MG tablet Active 5 mg PO DAILY March 30, 2017 1:00am Ascorbic Acid (2 sources) Vitamin C ascorbic acid (VITAMIN C ORAL) Take by mouth once daily. 0 Active Comment on above: Take by mouth once d aily. aspirin 81 mg chewable tablet (14 sources) Platelet Aggregation Inhibitor, Nonsteroidal Anti-inflammatory Drug [...] afternoon. calcium ascorbate 500 mg oral tablet (14 sources) Start: 08-05-2021 take 1 tablet by mouth once daily Ascorbate Calcium (Vitamin C) 500 mg tablet Active 500 mg PO DAILY August 05, 2021 12:00am calcium carbonate 1250 mg / cholecalciferol 100 unt chewable tablet (14 sources) Vitamin D Start: 09-11-2020 Calcium Carbonate-Vitamin [...] actuat levalbuterol 0.045 mg/actuat metered dose inhaler (14 sources) beta2-Adrenergic Agonist Start: 03-30-20 Levalbuterol Tartrate 15 GM HFA aerosol inhaler Active 15 g IH DAILY as needed for Wheezing March 30, 2017 1:00am levocetirizine dihydrochloride 5 mg oral tablet (16 sources) Histamine-1 Receptor Antagonist Start: 03-30-20 17 take 1 tablet by mouth once daily Levocetirizine 5 MG tablet Active 5 mg PO DAILY March 30, 2017 1:00am Comment on above: Take 5 mg by mouth o nce daily. levothyroxine sodium 0.025 mg oral tablet (16 sources) l-Thyroxine Start: 09-17-19 take 1 tablet by mouth once daily Levothyroxine 25 mcg tablet Active 25 ug PO DAILY September 16, 2020 12:00am Comment on above: once daily. LOW-DOSE ASPIRIN ORAL (2 sources) LOW-DOSE ASPIRIN ORAL Take by mouth once daily. 0 Active Comment on above: Take by mouth once d aily. 24 hr metoprolol succinate 50 mg extended release oral tablet (15 sources) beta-Adrenergic Donna Start: 04-07-20 take 1 tablet by mouth every twenty-four hours metoprolol succinate ER (TOPROL XL) 50 mg 24 hr tablet Take by mouth. 0 04/07/2021 Active Start: 04-07-2021 take 1 tablet by linda once daily Metoprolol Succinate 50 mg tablet extended release 24 hr Active 50 mg PO DAILY April 07, 2021 1:00am MULTIVITAMIN ORAL (2 sources) MULTIVITAMIN ORA L Take by mouth once daily. 0 Active Comment on above: Take by mouth once d aily. [place] 0-Yni-Rhl-Fish Oil (Fish Oil) 300-1,000 mg capsule,delayed release(DR/EC) (14 sources) Start: 02-02-2022 [place] 3-Met-Jvj-Fish Oil (Fish Oil) 300-1,000 mg capsule,delayed release(DR/EC) Active 1 NMA PO TWICE A DAY February 02, 2022 12:00am Start: 02-02-2022 take 300-1000 mg by mouth twice daily [place] 1-Psu-Jdt-Fish Oil (Fish Oil) 300-1,000 mg capsule,delayed release(DR/EC) Active 1 CAP PO TWICE A DAY February 02, 2022 12:00am Start: 02-02-2022 take 300-1000 mg by mouth twice daily [place] 0-Loi-Vog-Fish Oil (Fish Oil) 300-1,000 mg capsule,delayed release(DR/EC) Active 1 CAP PO TWICE A DAY February 01, 2022 11:00pm potassium citrate 10 meq extended release oral tablet (16 sources) Start: 03-30-2017 take 5 mEq by [...] Discontinued 10 mg PO EVERY MORNING 30 April 07, 2021 9:41am November 19, 2024 8:28pm Comment on above: once daily. rosuvastatin calcium 20 mg oral tablet (14 sources) HMG-CoA Reductase Inhibitor Start: 017 take [...] actuat umeclidinium 0.0625 mg/actuat dry powder inhaler (16 sources) Anticholinergic Start: 024 take 1 puff(s) [...] / HYDROcodone bitartrate 10 mg oral tablet (14 sources) Opioid Agonist Start: 03-30-2017 End: 05-18-2017 [...] mg / clavulanate 125 mg oral tablet (14 sources) Penicillin-class Antibacterial Start: 05-18-2017 End: 05-28-2017 Amoxicillin-Pot Clavulanate (Augmentin) 875-125 mg tablet Discontinued 1 {tbl} PO Q12H 20 10 0 May 18, 2017 1:00am May 27, 2017 1:00am May 28, 2017 1:10am Acute sinusitis, unspecified irbesartan 75 mg oral tablet (15 sources) Angiotensin 2 Receptor Donna Start: 09-16-2020 End: 11-19-2024 take 1 tablet by mouth once daily Irbesartan 75 mg tablet Discontinued 75 mg PO DAILY September 16, 2020 12:00am November 19, 2024 8:27pm magnesium oxide 400 mg oral tablet (14 sources) Start: 03-30-2017 End: 09-16-2020 take 1 tablet by mouth once daily Magnesium Oxide 400 MG tablet Discontinued 400 mg PO DAILY March 30, 2017 1:00am September 16, 2020 8:10am omega-3 acid ethyl esters (correction) 1000 mg oral capsule (14 sources) Start: 12-31-2020 End: 04-07-2021 take 1 capsule by mouth twice daily at mealtime [place]-3 Acid Ethyl Esters (Lovaza) 1 gram capsule Discontinued 2 NMA PO TWICE A DAY 120 3 December 31, 2020 12:00am April 07, 2021 12:59pm Take with food predniSONE 20 mg oral tablet (14 sources) Start: 03-30-2017 End: 08-17-2018 take 2 [...] With food primidone 50 mg oral tablet (14 sources) Anti-epileptic Agent Start: 09-16-2020 End: 11-19-2020 [...] Date Documented Da te Episodic/Chronic Alcohol-related disorders (16 sources) Alcoholism; Translations: [Alcohol dependence, uncomplicated] Onset: 08-25-2023 08-05-2021 Chronic Biliary tract disease (9 sources) Cholelithiasis without obstruction; Translations: [Calculus of gallbladder without cholecystitis without obstruction] Onset: 11-20-2024 08-28-2023 Episodic Chronic obstructive pulmonary disease and bronchiectasis (1 source) Chronic obstructive pulmonary disease, unspecified; Translations: [Chronic obstructive pulmonary disease, unspecified] Onset: 07-13-2024 Chronic Conditions associated with dizziness or vertigo (16 sources) Lightheadedness; Translations: [Dizziness and giddiness] Onset: 08-25-2023 09-16-2020 Episodic Disorders of lipid metabolism (17 sources) Hyperlipidemia; Translations: [Hyperlipidemia, unspecified] Onset: 04-15-2023 12-31-2020 Chronic Nonspecific chest pain (9 sources) Chest wall pain; Translations: [Other chest pain] Onset: 07-08-2023 07-03-2023 Episodic Occlusion or stenosis of precerebral arteries (20 sources) Bilateral stenosis of carotid arteries; Translations: [Occlusion and stenosis of bilateral carotid arteries] Onset: 11-11-2022 02-02-2022 Chronic Other gastrointestinal disorders (1 source) Encounter for attention to other artificial openings of digestive tract; Translations: [Cholecystostomy care (HCC)] Onset: 11-20-2024 Chronic Other gastrointestinal disorders (8 sources) H/O: gallstones; Translations: [Personal history of other diseases of the digestive system] Onset: 08-25-2023 07-03-2023 Episodic Other gastrointestinal disorders (6 sources) H/O: liver disease; Translations: [Personal history of other diseases of the digestive system] 07-03-2023 Episodic Other hereditary and degenerative nervous system conditions (17 sources) Essential tremor; Translations: [Essential tremor] 02-02-2022 Chronic Other hereditary and degenerative nervous system conditions (16 sources) Hereditary essential tremor; Translations: [Essential tremor] Onset: 08-25-2023 09-16-2020 Chronic Other hereditary and degenerative nervous system conditions (6 sources) Essential tremor; Translations: [Essential and other specified forms of tremor] 11-02-2022 Chronic Other liver diseases (16 sources) Elevated liver enzymes level; Translations: [High liver transaminase level] Onset: 08-25-2023 09-16-2020 Episodic Other upper respiratory infections (16 sources) Acute sinusitis; Translations: [Acute sinusitis, unspecified] Onset: 08-25-2023 05-18-2017 Episodic Pancreatic disorders (not diabetes) (5 sources) Gallstone pancreatitis; Translations: [Biliary acute pancreatitis without necrosis or infection] Onset: 11-24-2024 11-19-2024 Episodic Superficial injury; contusion (16 sources) Contusion of left chest wall; Translations: [Contusion of left front wall of thorax, initial encounter] Onset: 08-25-2023 04-07-2018 Episodic Past or Other Problems Problem Classification Problem Date Documented Da te Episodic/Chronic Fluid and electrolyte disorders (2 sources) Hypo-osmolality and hyponatremia; Translations: [Hypo-osmolality and hyponatremia] Onset: 01-22-2024 Episodic Results Test Name Value Interpretation Reference Range Facility CBC panel Auto (Bld)on 11-23 Erythrocyte distribution width (RBC) [Ratio] 13.3 % Normal 11.5-15.0 [facility] Comment on above: Order Comment: Tiffanie conrad Type: BLOOD SPECIMEN Ordering Facility: [facility] Address: [address] [place] [address] Performed By: #### 2 4323-8, 3040-3 #### [facility] CLIA [id number] [address] [place] [address] [place] Hematocrit (Bld) [Volume fraction] 34.2 % Low 39.0-51.0 [facility] Comment on above: Order Comment: Tiffanie conrad Type: BLOOD SPECIMEN Ordering Facility: [facility] Address: [address] [place], [place] [id number] Performed By: #### 2 4323-8, 3039-3 #### [facility] CLIA [id number] [address] [place] [address] [place] Hemoglobin (Bld) [Mass/Vol] 11.7 g/dL Low 13.0-17.0 [facility] Comment on above: Order Comment: Kaciei anamaria Type: BLOOD SPECIMEN Ordering Facility: [facility] Address: [address] [place] [address] Performed By: #### 2 4323-8, 3040-3 #### [facility] CLIA [id number] [address] [place] [address] [place] MCH (RBC) [Entitic mass] 31.4 pg Normal 26.0-34.0 [facility] Comment on above: Order Comment: Kaciei anamaria Type: BLOOD SPECIMEN Ordering Facility: [facility] Address: [address] [place], [place] [address] Performed By: #### 2 4323-8, 3039-3 #### [facility] CLIA [id number] [address] [place] [address] [place] MCHC (RBC) [Mass/Vol] 34.2 g/dL Normal 30.5-36.0 [facility] Comment on above: Order Comment: Speci men Type: BLOOD SPECIMEN Ordering Facility: [facility] Address: [address] [place] [address] Performed By: #### 2 4323-8, 3039-3 #### [facility] CLIA [id number] [address] [place] [address] [place] MCV (RBC) [Entitic vol] 91.7 fL Normal 80.0-100.0 [facility] Comment on above: Order Comment: Speci men Type: BLOOD SPECIMEN Ordering Facility: [facility] Address: [address] [place] [address] Performed By: #### 2 4323-8, 3039-3 #### [facility] CLIA [id number] [address] [place] [address] [place] Nucleated RBC (Bld) [#/Vol] 10*3/uL Normal <0.01 [facility] Comment on above: Order Comment: Speci men Type: BLOOD SPECIMEN Ordering Facility: [facility] Address: [address] [place] [address] Performed By: #### 2 4323-8, 3039-3 #### [facility] CLIA [id number] [address] [place] [address] [place] Platelet mean volume (Bld) [Entitic vol] 10.1 fL Normal 9.0-12.7 [facility] Comment on above: Order Comment: Speci men Type: BLOOD SPECIMEN Ordering Facility: [facility] Address: [address] [place] [address] Performed By: #### 2 4323-8, 3039-3 #### [facility] CLIA [id number] [address] [place] [address] [place] Platelets (Bld) [#/Vol] 170 10*3/uL Normal 150-400 [facility] Comment on above: Order Comment: Speci men Type: BLOOD SPECIMEN Ordering Facility: [facility] Address: [address] [place] [address] Performed By: #### 2 4323-8, 3040-3 #### [facility] CLIA [id number] [address] [place], [place] [id number] [place] RBC (Bld) [#/Vol] 3.73 10*6/uL Low 4.20-6.00 [facility] Comment on above: Order Comment: Speci men Type: BLOOD SPECIMEN Ordering Facility: [facility] Address: [address] [place] [address] Performed By: #### 2 4323-8, 3040-3 #### [facility] CLIA [id number] [address] [place], [place] [id number] [place] WBC (Bld) [#/Vol] 7.66 10*3/uL Normal 3.70-11.00 [facility] Comment on above: Order Comment: Speci men Type: BLOOD SPECIMEN Ordering Facility: [facility] Address: [address] [place] [address] Performed By: #### 2 4323-8, 3040-3 #### [facility] CLIA [id number] [address] [place], [place] [id number] [facility] [place] CNDSon 11-23-2024 CNDS HNO ID: [id number] Author: KERWIN AGUILAR DO Service: Hospital Medicine Author Type: Physician Type: Discharge Summary Filed: 11/23/2024 11:02 Note Text: DISCHARGE SUMMARY PATIENT NAME: Fahad Kirk Jr ADMISSION DATE: 11/20/2024 DISCHARGE DATE: 11/23/2024 ATTENDING PHYSICIAN: Kerwin Aguilar DO Code Status: Full Code CONSULTING TEAMS DURING HOSPITALIZATION: General surgery REASON FOR HOSPITALIZATION: Cholecystitis, displaced cholecystostomy tube DIAGNOSIS: Cholecystitis Displaced cholecystostomy tube Encephalopathy Hypertension Hyperlipidemia Hypothyroidism Hx of alcohol abuse Tobacco abuse OPERATIONS/PROCEDURES DURING HOSPITALIZATION: Cholecystostomy tube placement (11/21) HOSPITAL COURSE: Cholecystitis Displaced cholecystostomy tube Patient initially taken to the [facility] ED for abdominal pain CT abdomen showed a hydropic gallbladder containing radiodense stones with marked wall thickening and pericholecystic fluid in addition to inflammatory stranding Follow-up ultrasound showed distended gallbladder with cholelithiasis, wall thickening, and pericholecystic fluid Cholecystostomy tube placed there but pulled out by patient Patient transferred here to [facility] General surgery consulted New cholecystostomy tube placed in IR on 11/21 Patient will follow-up with general surgery in the coming weeks for cholangiogram Encephalopathy vs. EtOH withdrawal vs. Dementia [facility] and pulled out his cholecystostomy tube Patient continued to display signs of confusion here Suspect delirium was at play Confusion did improve by time of discharge Chronic comorbidities Hypertension Hyperlipidemia Hypothyroidism Tobacco abuse Patient discharged home on 11/23. PHYSICAL EXAM: BP 175/81 Pulse 72 Temp (Src) 98 (Oral) Resp 16 Ht 5' 2 (1.58m) Wt 122 lb 5.7 oz (55.5kg) SpO2 94% BMI 22.37 kg/(m2). O2 Therapy: Room Air General: alert, resting comfortably Neck: supple, no hepatojugular reflux or jugular venous distention, no carotid bruits Lungs: clear to auscultation bilaterally, no wheezing, rales, or rhonchi Cardiac: regular rate and rhythm, normal S1 and S2, no murmurs, gallops, or rubs Abdomen: cholecystostomy tube in place, soft, nontender, nondistended, bowel sounds present Extremities: no edema, cyanosis, or clubbing Skin: no rashes or breakdown Lymphatic: no cervical or supraclavicular lymphadenopathy Neurologic: cranial nerves II-XII are grossly intact Psychiatry: confused DISCHARGE MEDICATION: Medication List START taking these medications BD POSIFLUSH NORMAL SALINE 0.9 syringe Generic drug: sodium chloride 0.9 % (flush) Inject 10 mL intravenously every 48 hours. Start taking on: November 24, 2024 CONTINUE taking these medications albuterol HFA 90 mcg/actuation inhaler Commonly known as: PROVENTIL HFA, VENTOLIN HFA atorvastatin 40 mg tablet Commonly known as: LIPITOR INCRUSE ELLIPTA 62.5 mcg/actuation inhaler Generic drug: umeclidinium levothyroxine 25 mcg tablet Commonly known as: SYNTHROID LOW-DOSE ASPIRIN ORAL MULTIVITAMIN PO potassium citrate ER 10 mEq (1,080 mg) Commonly known as: UROCIT-K propranolol ER 60 mg 24 hr capsule Commonly known as: INDERAL LA Telmisartan 20 mg tablet VITAMIN C PO Where to Get Your Medications These medications were sent to [facility] [address] [facility] [address] Hours: Wednesday-Wednesday 7am-7pm, Wednesday 9am-1pm BD POSIFLUSH NORMAL SALINE 0.9 syringe FUTURE APPOINTMENTS: No future appointments. Follow Up Appointments Follow-up Appointment When: In 2 weeks Gosia Delaney MD [phone] [facility]. [address] [facility] [address] PCP Requested Referral Follow-up Appointment When: In 2 weeks Roberto Ramon MD [phone] [place] [address] [address] [facility] [phone] PCP Requested Referral PATIENT CONDITION AT DISCHARGE: Stable DISCHARGE DISPOSITION: Home DISCHARGE TIME: 33 minutes SIGNATURE: Kerwin Aguilar DO DATE: November 23, 2024 TIME: 10:59 AM Normal [facility] Comprehensive metabolic 2000 panelon 11-23-2024 Albumin [Mass/Vol] 2.9 g/dL Low 3.2-5.0 [facility] Comment on above: Order Comment: Speci men Type: BLOOD SPECIMEN Ordering Facility: [facility] Address: [address] [place] [address] Performed By: #### 2 4323-8, 3040-3 #### [facility] CLIA [id number] [address] [place] [id number] [place] ALP [Catalytic activity/Vol] 62 U/L Normal 45-117 [facility] Comment on above: Order Comment: Speci men Type: BLOOD SPECIMEN Ordering Facility: [facility] Address: [address] [place] [address] Performed By: #### 2 4323-8, 3040-3 #### [facility] CLIA [id number] [address] [place] [address] [place] ALT [Catalytic activity/Vol] 44 U/L Normal 13-61 [facility] Comment on above: Order Comment: Tiffanie conrad Type: BLOOD SPECIMEN Ordering Facility: [facility] Address: [address] [place] [address] Result Comment: Resu lts may be falsely depressed after the administration of Sulfasalazine and/or Sulfapyridine. Performed By: #### 2 4323-8, 3040-3 #### [facility] CLIA [id number] [address] [place], [place] [address] [place] Anion gap [Moles/Vol] 9 mmol/L Normal 5-16 [facility] Comment on above: Order Comment: Tiffanie conrad Type: BLOOD SPECIMEN Ordering Facility: [facility] Address: [address] [place] [address] Performed By: #### 2 4323-8, 0-3 #### [facility] CLIA [id number] [address] [place] [address] STATES [place] [facility] AST [Catalytic activity/Vol] 27 U/L Normal 8-34 [facility] Comment on above: Order Comment: Tiffanie conrad Type: BLOOD SPECIMEN Ordering Facility: [facility] Address: [address] [place] [address] Result Comment: Resu lts may be falsely depressed after the administration of Sulfasalazine and/or Sulfapyridine. Performed By: #### 2 4323-8, 3040-3 #### [facility] CLIA [id number] [address] [place], [place] [address] [place] Bilirubin [Mass/Vol] 0.8 mg/dL Normal 0.2-1.0 [facility] Comment on above: Order Comment: Tiffanie conrad Type: BLOOD SPECIMEN Ordering Facility: [facility] Address: [address] [place] [address] Performed By: #### 2 4323-8, 3040-3 #### [facility] CLIA [id number] [address] [place], [place] [address] [place] Calcium [Mass/Vol] 8.8 mg/dL Normal 8.5-10.5 [facility] Comment on above: Order Comment: Speci men Type: BLOOD SPECIMEN Ordering Facility: [facility] Address: [address] [place], [place] [address] Performed By: #### 2 4323-8, 0-3 #### [facility] CLIA [id number] [address] [place] [address] [place] Chloride [Moles/Vol] 108 mmol/L High 98-107 [facility] Comment on above: Order Comment: Speci men Type: BLOOD SPECIMEN Ordering Facility: [facility] Address: [address] [place] [address] Performed By: #### 2 4323-8, 3039-3 #### [facility] CLIA [id number] [address] [place] [address] [place] CO2 [Moles/Vol] 22 mmol/L Normal 21-32 [facility] Comment on above: Order Comment: Speci men Type: BLOOD SPECIMEN Ordering Facility: [facility] Address: [address] [place] [address] Performed By: #### 2 4323-8, 3039-3 #### [facility] CLIA [id number] [address] [place] [address] [place] Creatinine [Mass/Vol] 0.93 mg/dL Normal 0.50-1.40 [facility] Comment on above: Order Comment: Speci men Type: BLOOD SPECIMEN Ordering Facility: [facility] Address: [address] [place], [place] [id number] Result Comment: Erica ents receiving either N-Acetylcysteine (NAC) or Metamizole prior to venipuncture, may have falsely depressed results. Performed By: #### 2 4323-8, 3039-3 #### [facility] CLIA [id number] [address] [place] [address] [place] eGFRcr SerPlBld CKD-EPI 2020 88 mL/min/1.73m??? Normal >=60 [facility] Comment on above: Order Comment: Tiffanie conrad Type: BLOOD SPECIMEN Ordering Facility: [facility] Address: [address] [place] [address] Result Comment: Amarilis mated Glomerular Filtration Rate (eGFR) is calculated using the 2020 CKD-EPI creatinine equation. This equation utilizes serum creatinine, sex, and age as parameters. The creatinine assay has traceable calibration to isotope dilution-mass spectrometry. Refer to KDIGO guidelines for clinical interpretation. In patients with unstable renal function, e.g. those with acute kidney injury, the eGFR may not accurately reflect actual GFR. Performed By: #### 2 4323-8, 3039-3 #### [facility] CLIA [id number] [address] [place], [place] [address] [place] Glucose [Mass/Vol] 93 mg/dL Normal 70-100 [facility] Comment on above: Order Comment: Tiffanie conrad Type: BLOOD SPECIMEN Ordering Facility: [facility] Address: [address] [place] [address] Result Comment: The [place] Diabetes [employer] (ADA) provides guidance for cutoff values for fasting glucose and random glucose. The ADA defines fasting as no caloric intake for at least 8 hours. Fasting plasma glucose results between 100 to 125 mg/dL indicate increased risk for diabetes (prediabetes). Fasting plasma glucose results greater than or equal to 126 mg/dL meet the criteria for diagnosis of diabetes. In the absence of unequivocal hyperglycemia, results should be confirmed by repeat testing. In a patient with classic symptoms of hyperglycemia or hyperglycemic crisis, random plasma glucose results greater than or equal to 200 mg/dL meet the criteria for diagnosis of diabetes. Reference: Standards of Medical Care in Diabetes 2016, [place] [employer]. Diabetes Care. 2016.39(Suppl 1). Results may be falsely elevated after the administration of Sulfapyridine. Results may be falsely depressed after the administration of Sulfasalazine. Performed By: #### 2 4323-8, 3039-3 #### [facility] CLIA [id number] [address] [place], [place] [address] [place] Potassium [Moles/Vol] 3.7 mmol/L Normal 3.5-5.1 [facility] Comment on above: Order Comment: Speci men Type: BLOOD SPECIMEN Ordering Facility: [facility] Address: [address] [place] [address] Performed By: #### 2 4323-8, 0-3 #### [facility] CLIA [id number] [address] [place], [place] [address] [place] Protein [Mass/Vol] 5.9 g/dL Low 6.0-8.5 [facility] Comment on above: Order Comment: Speci men Type: BLOOD SPECIMEN Ordering Facility: [facility] Address: [address] [place] [address] Performed By: #### 2 4323-8, 3039-3 #### [facility] CLIA [id number] [address] [place] [address] [place] Sodium [Moles/Vol] 139 mmol/L Normal 136-145 [facility] Comment on above: Order Comment: Speci men Type: BLOOD SPECIMEN Ordering Facility: [facility] Address: [address] [place] [address] Performed By: #### 2 4323-8, 3039-3 #### [facility] CLIA [id number] [address] [place] [address] [place] Urea nitrogen [Mass/Vol] 9 mg/dL Normal 7-26 [facility] Comment on above: Order Comment: Speci men Type: BLOOD SPECIMEN Ordering Facility: [facility] Address: [address] [place] [address] Performed By: #### 2 4323-8, 3039-3 #### [facility] CLIA [id number] [address] [place], [place] [address] [place] Magnesium SerPl-mCncon 11-23 Magnesium [Mass/Vol] 1.8 mg/dL Normal 1.6-2.6 [facility] Comment on above: Order Comment: Speci men Type: BLOOD SPECIMEN Ordering Facility: [facility] Address: [address] [place], [place] [address] Performed By: #### 2 4323-8, 0-3 #### [facility] CLIA [id number] [address] [place] [address] OF [place] CBC panel Auto (Bld)on 11-22 Erythrocyte distribution width (RBC) [Ratio] 13.5 % Normal 11.5-15.0 [facility] Comment on above: Order Comment: Speci men Type: BLOOD SPECIMEN Ordering Facility: [facility] Address: [address] [place] [address] Performed By: #### 4 5066-8 #### [facility] CLIA [id number] [address] [place] [address] OF [facility] Hematocrit (Bld) [Volume fraction] 32.0 % Low 39.0-51.0 [facility] Comment on above: Order Comment: Speci men Type: BLOOD SPECIMEN Ordering Facility: [facility] Address: [address] [place] [address] Performed By: #### 4 5066-8 #### [facility] CLIA [id number] [address] [place] [address] Hemoglobin (Bld) [Mass/Vol] 11.2 g/dL Low 13.0-17.0 [facility] Comment on above: Order Comment: Speci men Type: BLOOD SPECIMEN Ordering Facility: [facility] Address: [address] [place] [address] Performed By: #### 4 5066-8 #### [facility] CLIA [id number] [address] [place] [address] [place] MCH (RBC) [Entitic mass] 31.8 pg Normal 26.0-34.0 [facility] Comment on above: Order Comment: Speci men Type: BLOOD SPECIMEN Ordering Facility: [facility] Address: [address] [place] [address] Performed By: #### 4 5066-8 #### [facility] CLIA [id number] [address] [place] [address] [place] MCHC (RBC) [Mass/Vol] 35.0 g/dL Normal 30.5-36.0 [facility] Comment on above: Order Comment: Speci men Type: BLOOD SPECIMEN Ordering Facility: [facility] Address: [address] [place] [address] Performed By: #### 4 5066-8 #### [facility] CLIA [id number] [address] [place] [address] [place] MCV (RBC) [Entitic vol] 90.9 fL Normal 80.0-100.0 [facility] Comment on above: Order Comment: Speci men Type: BLOOD SPECIMEN Ordering Facility: [facility] Address: [address] [place] [address] Performed By: #### 4 5066-8 #### [facility] CLIA [id number] [address] [place] [address] [place] Nucleated RBC (Bld) [#/Vol] 10*3/uL Normal <0.01 [facility] Comment on above: Order Comment: Speci men Type: BLOOD SPECIMEN Ordering Facility: [facility] Address: [address] [place] [address] Performed By: #### 4 5066-8 #### [facility] CLIA [id number] [address] [place] [address] STATES [facility] Platelet mean volume (Bld) [Entitic vol] 10.5 fL Normal 9.0-12.7 [facility] Comment on above: Order Comment: Speci men Type: BLOOD SPECIMEN Ordering Facility: [facility] Address: [address] [place] [address] Performed By: #### 4 5066-8 #### [facility] CLIA [id number] [address] [place] [address] [place] Platelets (Bld) [#/Vol] 141 10*3/uL Low 150-400 [facility] Comment on above: Order Comment: Speci men Type: BLOOD SPECIMEN Ordering Facility: [facility] Address: [address] [place] [address] Performed By: #### 4 5066-8 #### [facility] CLIA [id number] [address] [place] [address] [place] RBC (Bld) [#/Vol] 3.52 10*6/uL Low 4.20-6.00 [facility] Comment on above: Order Comment: Speci men Type: BLOOD SPECIMEN Ordering Facility: [facility] Address: [address] [place], [place] [address] Performed By: #### 4 5066-8 #### [facility] CLIA [id number] [address] [place], [place] [address] [facility] WBC (Bld) [#/Vol] 8.14 10*3/uL Normal 3.70-11.00 [facility] Comment on above: Order Comment: Speci men Type: BLOOD SPECIMEN Ordering Facility: [facility] Address: [address] [place] [address] Performed By: #### 4 5066-8 #### [facility] CLIA [id number] [address] [place], [place] [address] [facility] CONSULT PROGon 11-22-2024 CONSULT PROG HNO ID: [id number] Author: ROBERTO RAMON MD Service: General Surgery Author Type: Physician Type: Consult Progress Note Filed: 11/22/2024 10:03 Note Text: Emergency General Surgery Progress Note SERVICE DATE: November 22, 2024 SUBJECTIVE: 69 year old male resting comfortably in bed, patient is pleasantly confused today. Vitals, labs, imaging reviewed. Plan of care rounds completed at the bedside with nursing, and surgical team Nausea No Emesis No Flatus patient answers questions and are appropriately, unable to determine Bowel movement No Pain Controlled Yes Ambulating Yes PT/OT No Tolerating clear DIET LIQUID Yes OBJECTIVE: Vitals: Temp (24hrs), Av.7 ?C (98 ?F), Min:36 ?C (96.8 ?F), Max:37.3 ?C (99.2 ?F) BP 146/67 Pulse 92 Temp 37.3 ?C (99.2 ?F) (Oral) Resp 16 Ht 157.5 cm (5' 2) Wt 54.6 kg (120 lb 5.9 oz) SpO2 92% BMI 22.02 kg/m? O2 Therapy: Room Air IANDO: Date 11/21/24 07 - 11/22/24 0659 11/22/24 07 - 11/23/24 0659 Shift 9245-4259 3801-6746 5811-5959 24 Hour Total 8378-9218 1822-6285 0660-7915 24 Hour Total INTAKE PO 240 240 PO 240 240 IV 2141 1041 3182 Volume (mL) (NaCl 0.9% iv infusion) 1691 1041 2732 Volume (mL) (NaCl 0.9% iv infusion) 450 450 Shift Total 2141 1281 3422 OUTPUT Urine 835 115 950 Void (ml) 835 115 950 Tubes 470 75 545 Drain/Tube Output (Drain/Tube 11/21/24 1309 [facility] Pelvic Drain Right Lower Quadrant Abdomen Drain #1) 470 75 545 Blood 2 2 Estimated Blood loss 2 2 Shift Total 2 1232 780 0423 Weight (kg) 53.9 54.6 54.6 54.6 54.6 54.6 54.6 54.6 MEDICATIONS Current Facility-Administered Medications Medication Dose Route Frequency sodium chloride 0.9 % (flush) 10 mL (BD POSIFLUSH) 10 mL INTRAVENOUS q 48 HR fentaNYL 50 mcg/mL 25-50 mcg injection (SUBLIMAZE) 25-50 mcg INTRAVENOUS q 10 MIN PRN ondansetron 4 mg tab(s) (ZOFRAN) 4 mg ORAL q 6 H PRN Or ondansetron (PF) 4 mg injection (ZOFRAN) 4 mg INTRAVENOUS q 6 H PRN NaCl 0.9% iv flush bag 20 mL INTRAVENOUS PRN aluminum-magnesium hydroxide-simethicone 200-200-20 mg/5 mL 30 mL 30 mL ORAL DAILY PRN ondansetron 4 mg tab(s) (ZOFRAN) 4 mg ORAL q 6 H PRN Or ondansetron (PF) 4 mg injection (ZOFRAN) 4 mg INTRAVENOUS q 6 H PRN polyethylene glycol 3350 17 g packet 17 g ORAL DAILY PRN acetaminophen 650 mg tab(s) (TYLENOL) 650 mg ORAL q 6 H PRN NaCl 0.9% iv infusion 75 mL/hr INTRAVENOUS CONTINUOUS morphine 2 mg injection 2 mg INTRAVENOUS q 4 H PRN piperacillin-tazobacta m iv piggyback 3.375 g in dextrose (iso-osmotic) 50 mL (ZOSYN) 3.375 g INTRAVENOUS q 6 H thiamine 100 mg tab(s) (VITAMIN B1) 100 mg ORAL DAILY multivitamin-ferrous fumarate-folic acid 1 tablet (CENTRUM) 1 tablet ORAL DAILY folic acid 1 mg tab(s) 1 mg ORAL DAILY PHENobarbital 64.8 mg tab(s) 64.8 mg ORAL TID PRN pantoprazole DR 40 mg tab(s) (PROTONIX) 40 mg ORAL DAILY (6 AM) haloperidol 3 mg tab(s) (HALDOL) 3 mg ORAL AT BEDTIME QUEtiapine 12.5 mg tab(s) (SEROquel) 12.5 mg ORAL q 8 H PRN atorvastatin 40 mg tab(s) (LIPITOR) 40 mg ORAL AT BEDTIME levothyroxine 25 mcg tab(s) (SYNTHROID) 25 mcg ORAL BEFORE BREAKFAST DAILY potassium citrate ER 1,080 mg tab(s) (UROCIT-K) 1,080 mg ORAL DAILY propranolol ER 60 mg cap(s) (INDERAL LA) 60 mg ORAL DAILY valsartan 40 mg tab(s) (DIOVAN) 40 mg ORAL DAILY aspirin 81 mg chewable tab(s) 81 mg ORAL DAILY Labs: Recent Labs 11/21/24 1152 11/21/24 0916 11/21/24 0545 11/20/24 2154 NA -- -- 134* -- K 3.8 -- -- -- CHLOR -- -- 104 -- CO2 -- -- 23 -- BUN -- -- 8 -- CREAT -- -- 0.84 0.84 GLUC -- -- 107* -- ANION -- -- 7 -- CA -- -- 8.4* -- ALB -- -- 2.9* -- ALT -- -- 84* -- ALKPHOS -- -- 57 -- TBILI -- -- 0.9 -- RBC -- -- 3.74* -- WBC -- -- 9.07 -- HB -- -- 11.9* -- HCT -- -- 34.1* -- PLT -- -- 137* -- INR -- 1.3 -- -- Exam: GENERAL: No distress, Alert and awake NEURO: Making eye contact, answering questions and appropriately HEENT: Sclera anicteric, moist MM LUNGS: Chest rise symmetrical, Unlabored breathing CARDIAC: Regular rate and rhythm ABDOMEN: Soft, non-tender, non-distended, cholecystostomy tube in place EXTREMITIES: Freely moving, No edema SKIN: Skin color normal for ethnicity, no pallor, no diaphoresis DATA: Diagnostic tests reviewed for today's visit: Recent Results (from the past 48 hours) PHYSICIAN CONSULT (AK,AV,EU,FV,HL,IR,FADUMO, MH,MM,MO,MR,SP,UN) Collection Time: 11/20/24 8:22 PM Roberto Cobb MD 11/21/2024 10:28 AM Emergency General Surgery - HANDP Examination / Consultation Note SERVICE DATE: 11/21/2024 SERVICE TIME: 0900 REASON FOR CONSULT: Cholelithiasis with acute on chronic cholecystitis REQUESTING PHYSICIAN: Josemanuel PRIMARY CARE PHYSICIAN: Gosia Delaney MD Subjective CHIEF COMPLAINT: Cholelithiasis with acute on chronic cholecystitis HPI: This is a 69 year old male with past medical history of COPD, hypercholesterolemia, HTN, hypot (more content not included)... Normal [facility] Comprehensive metabolic 2000 panelon 11-22-2024 Albumin [Mass/Vol] 2.7 g/dL Low 3.2-5.0 [facility] Comment on above: Order Comment: Tiffanie conrad Type: BLOOD SPECIMEN Ordering Facility: [facility] Address: [address] [place] [id number] Performed By: #### 2 4323-8, 3040-3 #### [facility] CLIA [id number] [address] [place] [address] [place] ALP [Catalytic activity/Vol] 60 U/L Normal 45-117 [facility] Comment on above: Order Comment: Tiffanie conrad Type: BLOOD SPECIMEN Ordering Facility: [facility] Address: [address] [place] [address] Performed By: #### 2 4323-8, 3040-3 #### [facility] CLIA [id number] [address] [place] [address] [place] ALT [Catalytic activity/Vol] 54 U/L Normal 13-61 [facility] Comment on above: Order Comment: Kaciei anamaria Type: BLOOD SPECIMEN Ordering Facility: [facility] Address: [address] [place] [address] Result Comment: Resu lts may be falsely depressed after the administration of Sulfasalazine and/or Sulfapyridine. Performed By: #### 2 4323-8, 0-3 #### [facility] CLIA [id number] [address] [place], [place] [address] [place] Anion gap [Moles/Vol] 8 mmol/L Normal 5-16 [facility] Comment on above: Order Comment: Speci men Type: BLOOD SPECIMEN Ordering Facility: [facility] Address: [address] [place] [address] Performed By: #### 2 4323-8, 3039-3 #### [facility] CLIA [id number] [address] [place] [address] [place] AST [Catalytic activity/Vol] 30 U/L Normal 8-34 [facility] Comment on above: Order Comment: Tiffanie conrad Type: BLOOD SPECIMEN Ordering Facility: [facility] Address: [address] [place] [address] Result Comment: Resu lts may be falsely depressed after the administration of Sulfasalazine and/or Sulfapyridine. Performed By: #### 2 4323-8, 3039-3 #### [facility] CLIA [id number] [address] [place], [place] [address] [place] Bilirubin [Mass/Vol] 1.0 mg/dL Normal 0.2-1.0 [facility] Comment on above: Order Comment: Tiffanie conrad Type: BLOOD SPECIMEN Ordering Facility: [facility] Address: [address] [place] [address] Performed By: #### 2 4323-8, 0-3 #### [facility] CLIA [id number] [address] [place] [address] [place] Calcium [Mass/Vol] 8.1 mg/dL Low 8.5-10.5 [facility] Comment on above: Order Comment: Tiffanie conrad Type: BLOOD SPECIMEN Ordering Facility: [facility] Address: [address] [place] [address] Performed By: #### 2 4323-8, 3040-3 #### [facility] CLIA [id number] [address] [place] [address] [place] Chloride [Moles/Vol] 107 mmol/L Normal 98-107 [facility] Comment on above: Order Comment: Speci men Type: BLOOD SPECIMEN Ordering Facility: [facility] Address: [address] [place] [address] Performed By: #### 2 4323-8, 3040-3 #### [facility] CLIA [id number] [address] [place], [place] [address] [place] CO2 [Moles/Vol] 25 mmol/L Normal 21-32 [facility] Comment on above: Order Comment: Speci men Type: BLOOD SPECIMEN Ordering Facility: [facility] Address: [address] [place] [address] Performed By: #### 2 4323-8, 304-3 #### [facility] CLIA [id number] [address] [place], [place] [address] [place] Creatinine [Mass/Vol] 0.86 mg/dL Normal 0.50-1.40 [facility] Comment on above: Order Comment: Speci men Type: BLOOD SPECIMEN Ordering Facility: [facility] Address: [address] [place] [address] Result Comment: Erica ents receiving either N-Acetylcysteine (NAC) or Metamizole prior to venipuncture, may have falsely depressed results. Performed By: #### 2 4323-8, 3040-3 #### [facility] CLIA [id number] [address] [place], [place] [address] [place] eGFRcr SerPlBld CKD-EPI 2020 93 mL/min/1.73m??? Normal >=60 [facility] Comment on above: Order Comment: Speci men Type: BLOOD SPECIMEN Ordering Facility: [facility] Address: [address] [place] [address] Result Comment: Amarilis mated Glomerular Filtration Rate (eGFR) is calculated using the 2020 CKD-EPI creatinine equation. This equation utilizes serum creatinine, sex, and age as parameters. The creatinine assay has traceable calibration to isotope dilution-mass spectrometry. Refer to KDIGO guidelines for clinical interpretation. In patients with unstable renal function, e.g. those with acute kidney injury, the eGFR may not accurately reflect actual GFR. Performed By: #### 2 4323-8, 3039-3 #### [facility] CLIA [id number] [address] [place] [address] [place] Glucose [Mass/Vol] 114 mg/dL High 70-100 [facility] Comment on above: Order Comment: Tiffanie conrad Type: BLOOD SPECIMEN Ordering Facility: [facility] Address: [address] [place] [address] Result Comment: The [place] [employer] (ADA) provides guidance for cutoff values for fasting glucose and random glucose. The ADA defines fasting as no caloric intake for at least 8 hours. Fasting plasma glucose results between 100 to 125 mg/dL indicate increased risk for diabetes (prediabetes). Fasting plasma glucose results greater than or equal to 126 mg/dL meet the criteria for diagnosis of diabetes. In the absence of unequivocal hyperglycemia, results should be confirmed by repeat testing. In a patient with classic symptoms of hyperglycemia or hyperglycemic crisis, random plasma glucose results greater than or equal to 200 mg/dL meet the criteria for diagnosis of diabetes. Reference: Standards of Medical Care in Diabetes 2016, [place] [employer]. Diabetes Care. 2016.39(Suppl 1). Results may be falsely elevated after the administration of Sulfapyridine. Results may be falsely depressed after the administration of Sulfasalazine. Performed By: #### 2 4323-8, 3039-3 #### [facility] CLIA [id number] [address] [place], [place] [address] [place] Potassium [Moles/Vol] 3.2 mmol/L Low 3.5-5.1 [facility] Comment on above: Order Comment: Tiffanie conrad Type: BLOOD SPECIMEN Ordering Facility: [facility] Address: [address] [place] [address] Performed By: #### 2 4323-8, 3039-3 #### [facility] CLIA [id number] [address] [place] [address] [place] Protein [Mass/Vol] 5.6 g/dL Low 6.0-8.5 [facility] Comment on above: Order Comment: Speci men Type: BLOOD SPECIMEN Ordering Facility: [facility] Address: [address] [place] [address] Performed By: #### 2 4323-8, 3040-3 #### [facility] CLIA [id number] [address] [place] [address] [place] Sodium [Moles/Vol] 140 mmol/L Normal 136-145 [facility] Comment on above: Order Comment: Speci men Type: BLOOD SPECIMEN Ordering Facility: [facility] Address: [address] [place] [address] Performed By: #### 2 4323-8, 3040-3 #### [facility] CLIA [id number] [address] [place] [address] [place] Urea nitrogen [Mass/Vol] 8 mg/dL Normal 7-26 [facility] Comment on above: Order Comment: Speci men Type: BLOOD SPECIMEN Ordering Facility: [facility] Address: [address] [place] [address] Performed By: #### 2 4323-8, 3040-3 #### [facility] CLIA [id number] [address] [place] [address] [place] Magnesium SerPl-mCncon 11-22 Magnesium [Mass/Vol] 1.7 mg/dL Normal 1.6-2.6 [facility] Comment on above: Order Comment: Speci men Type: BLOOD SPECIMEN Ordering Facility: [facility] Address: [address] [place] [address] Performed By: #### 2 4323-8, 3040-3 #### [facility] CLIA [id number] [address] [place] [address] [place] ANES POSTPROC EVALon 025 ANES POSTPROC EVAL HNO ID: [id number] Author: GARLAND YANCEY DO Service: Anesthesiology Author Type: Anesthesiologist Type: Anesthesia Postprocedure Evaluation Filed: 11/21/2024 14:33 Note Text: POST ANESTHESIA EVALUATION NOTE : 1955 Procedure Summary Date: 11/21/24 Room / Location: IR 01 / IR Anesthesia Start: 1237 Anesthesia Stop: 1326 Procedure: CHOLECYSTOSTOMY PERCUTANEOUS CATH PLACEMENT CHOLECYSTOGRAM RADIOLOGY SUPERVISIO/INTERPRETAT ION Diagnosis: Cholecystitis (Cholecystitis [K81.9]) Surgeons: Miasel Perea MD Responsible Provider: Garland Yancey DO Anesthesia Type: general ASA Status: 3 Anesthesia Type: general Airway Type: LMA Last Vitals Vitals Value Taken Time BP 188/80 11/21/24 1401 Temp 36.6 ?C (97.8 ?F) 11/21/24 1330 Pulse 97 11/21/24 1430 Resp 24 11/21/24 1345 SpO2 94 % 11/21/24 1430 Vitals shown include unfiled device data. Post Anesthesia Patient Status Patient Evaluation: PACU. PACU/ICU Patient Condition: stable. Anticipated Disposition: inpatient floor planned admission. Neurological Status: aware and responsive. Pulmonary Status: breathing comfortably on supplemental oxygen Airway Control: returned to baseline unsupported. Cardiovascular Status: stable. Pain Management: clinically adequate - multimodal analgesia pain management approach Postoperative Hydration: acceptable. Intraoperative Events: no significant anesthesia events Post Operative Nausea/Vomiting Status: no significant post operative nausea or vomiting Recommendation: continue current plan of care, further care per PACU/ICU/floor team and pain control. Anesthesia Observations No Documentation SIGNATURE: Garland Yancey DO PATIENT NAME: Fahad Kirk Jr DATE: November 21, 2024 TIME: 2:32 PM CSN: [id number] [facility] ANES PRE-OPon 11-21-2024 ANES PRE-OP HNO ID: [id number] Author: GARLAND YANCEY DO Service: Anesthesiology Author Type: Anesthesiologist Type: Anesthesia Preprocedure Evaluation Filed: 11/21/2024 11:46 Note Text: ANESTHESIOLOGY DAY OF SURGERY NOTE : 1955 Procedure Information Date/Time: 11/21/24 1200 Procedure: CHOLECYSTOSTOMY PERCUTANEOUS CATH PLACEMENT CHOLECYSTOGRAM RADIOLOGY SUPERVISIO/INTERPRETAT ION Location: MR WHITING 01 / MR IR Surgeons: Misael Perea MD Estimated body mass index is 21.73 kg/m? as calculated from the following: Height as of this encounter: 157.5 cm (5' 2). Weight as of this encounter: 53.9 kg (118 lb 13.3 oz). Most recent hematocrit and potassium results: Hematocrit 34.1 11/21/2024 Hemoglobin (g/dL) Date Value 11/21/2024 11.9 Hematocrit (%) Date Value 11/21/2024 34.1 WBC (k/uL) Date Value 11/21/2024 9.07 Platelet Count (k/uL) Date Value 11/21/2024 137 CMP: Glucose 107 11/21/2024 BUN 8 11/21/2024 Creatinine 0.84 11/21/2024 Sodium 134 11/21/2024 Chloride 104 11/21/2024 CO2 23 11/21/2024 Protein, Total 5.5 11/21/2024 Albumin 2.9 11/21/2024 Calcium, Total 8.4 11/21/2024 Alkaline Phosphatase 57 11/21/2024 Bilirubin, Total 0.9 11/21/2024 ALT 84 11/21/2024 CHIEF COMPLAINT: Nausea, vomiting and right upper quad abdominal pain for the past few days resulting in an admission to the hospital now showed to have significant inflammation of the gallbladder. HPI: This is a 69 year old male with a PMH of COPD, hypercholesterolemia, benign essential tremor, hypertension, hypothyroidism, alcohol abuse, tobacco use, bilateral carotid disease, chronic elevated LFTs, who presents to the [place] ER with right upper quad abdominal pain with nausea and vomiting for 1 to 2 days. During their evaluation he is afebrile with normal vital signs. Labs show elevated AST 217 and ALT 126 with total bilirubin of 1.04 (direct 1.04). Lipase elevated 2,936. White count 16,500. CT of the abdomen 11/19/2024 with hydropic containing radiodense stones with marked wall thickening and pericholecystic fluid in addition to inflammatory stranding and fluid peripherally. Pancreas normal size without evidence of mass or surrounding inflammation or ductal dilation. Small volume of perihepatic ascites. Prominent rectal stool burden with mild colonic wall thickening near the hepatic flexure which may be reactive. Right upper quad ultrasound 11/19/2024 with a distended gallbladder, pericholecystic fluid gallbladder wall thickening, cholelithiasis. CBD measures 7 mm. Liver and pancreas unremarkable. The patient was admitted to surgical service at [place] and percutaneous cholecystotomy tube was attempted, however patient became combative and agitated during the procedure, and actually pulled the tube out, so the procedure was terminated. Approximately 25 cc of dark brown fluid was aspirated prior to this. This was after he received a dose of Versed 2 mg IV and fentanyl 50 mcg IV. IR was not willing to attempt a repeat at this procedure, so it was requested he be transferred to our hospital to see if our IR services could be successful with this procedure. Patient received IV Zosyn while admitted. He has a history of heavy alcohol use in the past but at bedside states he has not been drinking much for the past several weeks, just a beer here and there when mowing the yard. He now arrives to our hospital and appears stable but does look confused and delirious which may be related to underlying dementia hospital psychosis however will continue monitoring for possible alcohol withdrawal syndrome as well and sepsis. ASSESSMENT/PLAN: PRINCIPLE PROBLEM: 1. Acute cholecystitis/acute pancreatitis - IV Zosyn - IV fluids IV Zofran as needed nausea or vomiting - IV morphine as needed pain - Clear liquid diet unless he develops nausea and vomiting - N.p.o. at midnight for possible IR procedure tomorrow - Surgical consult - Repeat a CMP, CBC and lipase in morning ADDITIONAL PROBLEMS: 2. Alcohol abuse -Patient drinks maybe 1 beer here and there now -Nursing to perform: -CIWA SCALE q2-4 hrs as patient has the potential to develop alcohol withdrawal symptoms and/ or seizures that could result in injuries, aspiration or hypoxic brain damage and -INITIATE: -Phenobarbital 64.8 mg po or IV tid prn persistent withdrawal symptoms not controlled with the schedule Phenobarbital -Ativan IV prn any seizure activity or withdrawal symptoms not responding to Phenobarbital -Thiamine 100 mg IV or po daily -Folate acid 1 mg daily -Multivitamin 1 a day -Protonix 40 mg daily 3. Delirium - Possibly due to #2 however may also have underlying dementia - Delirium protocol in place - Haldol as needed agitation 4. Tobacco abuse -Patient smokes maybe 1/2 pack of cigarettes a day per at bedside -Provide smoking cessation couseling -Provide Nicotine patch if patient requests 5. (more content not included)... Normal [facility] BRIEF OP NOTon 11-21-2024 BRIEF OP NOT HNO ID: [id number] Author: MISAEL PEREA MD Service: Interventional Radiology Author Type: Physician Type: Brief Op Note Filed: 11/21/2024 13:13 Note Text: BRIEF OPERATIVE / PROCEDURE NOTE LOG ID: [id number] SURGERY/PROCEDURE DATE: 11/21/2024 INCISION/PROCEDURE START TIME: 12:57 PM INCISION CLOSE/PROCEDURE END TIME: 1:07 PM SURGEON(S)/PROCEDURALI ST(S) AND MATH COACH(S): Surgeons and Role: * Misael Perea MD - Primary No Additional Staff SURGERY/PROCEDURE(S): Cholecystostomy placement. ANESTHESIA: Monitored Anesthesia Care FINDINGS: Distended gallbladder with cholelithiasis. 10 Nigerien cholecystostomy placed. ESTIMATED BLOOD LOSS: 3 mL SPECIMENS: Bile for cultures. COMPLICATIONS: None PRE-OP/PRE-PROCEDURE DIAGNOSIS: Acute cholecystitis. Non operative candidate. POST-OP/POST-PROCEDURE DIAGNOSIS: Same as Preop Patient was accompanied to the next level of care by a licensed practitioner from the surgical team pending completion of this brief op note (or operative note) SIGNATURE: Misael Perea MD PATIENT NAME: Fahad Kirk Jr DATE: November 21, 2024 TIME: 1:12 PM [facility] Bacteria Wnd Culton 11-22-19 25 Bacteria identified Cx Nom (Wound) ORGANISM ID: 1 Rare Escherichia coli GRAM STAIN: No WBCs seen No organisms seen ORGANISM ID: 1 (ESCHERICHIA COLI) -- ANTIBIOTIC INTERPRETATION GYPSY STATUS REFERENCE RANGE -- Ampicillin S <=4 F Susceptible <=8 , Intermediate >8 , Resistant >16 Cefazolin S <=1 F Susceptible <=2 , Intermediate >2 , Resistant >=8 Ceftriaxone S <=1 F Susceptible <=1 , Intermediate >1 , Resistant >=4 Cefepime S <=1 F Susceptible <=2 , Susceptible-Dose Dependent >2 , Resistant >=16 Ertapenem S <=0.25 F Susceptible <=0.5 , Intermediate >.5 , Resistant >1 Meropenem S <=0.5 F Susceptible <=1 , Intermediate >1 , Resistant >2 Ampicillin/Sulbact S 4 F Piperacillin/Tazobac S <=2 F Gentamicin S <=2 F Susceptible <=2 , Intermediate >2 , Resistant >4 Trimeth sulfameth S <=0.5 F Ciprofloxacin S <=0.25 F Susceptible <0.5 , Intermediate >=.5 , Resistant >=1 Abnormal [facility] Comment on above: Performed By: #### 2 4323-8, 3040-3 #### [facility] CLIA [id number] [address] [place] [address] [place] CBC panel Auto (Bld)on 11-21 Erythrocyte distribution width (RBC) [Ratio] 13.2 % Normal 11.5-15.0 [facility] Comment on above: Order Comment: Tiffanie conrad Type: BLOOD SPECIMEN Ordering Facility: [facility] Address: [address] [place] [address] Performed By: #### 5 8410-2, WAWILDERR #### [facility] CLIA [id number] [address] [place] [address] [place] Hematocrit (Bld) [Volume fraction] 34.1 % Low 39.0-51.0 [facility] Comment on above: Order Comment: Tiffanie conrad Type: BLOOD SPECIMEN Ordering Facility: [facility] Address: [address] [place] [address] Performed By: #### 5 8410-2, WAMMR #### [facility] CLIA [id number] [address] [place] [address] [place] Hemoglobin (Bld) [Mass/Vol] 11.9 g/dL Low 13.0-17.0 [facility] Comment on above: Order Comment: Speci men Type: BLOOD SPECIMEN Ordering Facility: [facility] Address: [address] [place] [address] Performed By: #### 5 8410-2, WAMMR #### [facility] CLIA [id number] [address] [place] [address] [place] MCH (RBC) [Entitic mass] 31.8 pg Normal 26.0-34.0 [facility] Comment on above: Order Comment: Speci men Type: BLOOD SPECIMEN Ordering Facility: [facility] Address: [address] [place] [address] Performed By: #### 5 8410-2, WAMMR #### [facility] CLIA [id number] [address] [place] [address] [place] MCHC (RBC) [Mass/Vol] 34.9 g/dL Normal 30.5-36.0 [facility] Comment on above: Order Comment: Speci men Type: BLOOD SPECIMEN Ordering Facility: [facility] Address: [address] [place] [address] Performed By: #### 5 8410-2, WAMMR #### [facility] CLIA [id number] [address] [place] [address] [place] MCV (RBC) [Entitic vol] 91.2 fL Normal 80.0-100.0 [facility] Comment on above: Order Comment: Speci men Type: BLOOD SPECIMEN Ordering Facility: [facility] Address: [address] [place] [address] Performed By: #### 5 8410-2, WAMMR #### [facility] CLIA [id number] [address] [place] [address] [place] Nucleated RBC (Bld) [#/Vol] 10*3/uL Normal <0.01 [facility] Comment on above: Order Comment: Speci men Type: BLOOD SPECIMEN Ordering Facility: [facility] Address: [address] [place] [address] Performed By: #### 5 8410-2, WAMMR #### [facility] CLIA [id number] [address] [place] [address] [place] Platelet mean volume (Bld) [Entitic vol] 10.8 fL Normal 9.0-12.7 [facility] Comment on above: Order Comment: Speci men Type: BLOOD SPECIMEN Ordering Facility: [facility] Address: [address] [place] [address] Performed By: #### 5 8410-2, WAMMR #### [facility] CLIA [id number] [address] [place] [address] [place] Platelets (Bld) [#/Vol] 137 10*3/uL Low 150-400 [facility] Comment on above: Order Comment: Speci men Type: BLOOD SPECIMEN Ordering Facility: [facility] Address: [address] [place] [address] Result Comment: No c lot detected. Performed By: #### 5 8410-2, WAMMR #### [facility] CLIA [id number] [address] [place] [address] [place] RBC (Bld) [#/Vol] 3.74 10*6/uL Low 4.20-6.00 [facility] Comment on above: Order Comment: Speci men Type: BLOOD SPECIMEN Ordering Facility: [facility] Address: [address] [place] [address] Performed By: #### 5 8410-2, WAMMR #### [facility] CLIA [id number] [address] [place] [address] [place] WBC (Bld) [#/Vol] 9.07 10*3/uL Normal 3.70-11.00 [facility] Comment on above: Order Comment: Speci men Type: BLOOD SPECIMEN Ordering Facility: [facility] Address: [address] [place], [place] [address] [address] Performed By: #### 5 8410-2, [facility] #### [facility] CLIA [id number] [address] [place] [address] [place] CONSULTon 11-21-2024 CONSULT HNO ID: [id number] Author: ROBERTO RAMON MD Service: General Surgery Author Type: Physician Type: Consults Filed: 11/21/2024 10:28 Note Text: Emergency General Surgery - HANDP Examination / Consultation Note SERVICE DATE: 11/21/2024 SERVICE TIME: 0900 REASON FOR CONSULT: Cholelithiasis with acute on chronic cholecystitis REQUESTING PHYSICIAN: Josemanuel PRIMARY CARE PHYSICIAN: Gosia Delaney MD Subjective CHIEF COMPLAINT: Cholelithiasis with acute on chronic cholecystitis HPI: This is a 69 year old male with past medical history of COPD, hypercholesterolemia, HTN, hypothyroidism, EtOH abuse, tobacco use, bilateral carotid disease, chronic elevated LFTs, benign essential tremor who presented to [place] ER on November 19 with right upper quadrant abdominal pain and nausea and vomiting for the 1 to 2 days prior. He had an IR drain placed there, which he pulled out, transferred here for further evaluation Pt has been confused and delirious since arrival. Medical team concerned for ETOH withdrawal syndrome, sepsis, and possible underlying dementia hospital psychosis. Pt is confused, not following commands, possibly hallucinating while general surgery in room. No family at bedside. US of RUQ from November 19 showing distended gallbladder with pericholecystic fluid, gallbladder wall thickening, cholelithiasis with CBD measurement of [address] of abdomen pelvis from November 19 showing acute cholecystitis, small amount of free fluid adjacent to the liver and surrounding gallbladder, hydropic containing radiodense stones, marked wall thickening Pertinent lab findings T. bili 0.9<1.04 Alk phos 57 AST 217 ALT 84<126 Lipase 52<2936? WBC 9.07<16.5 HANDH 11.9/34.1 Surgical history of appendectomy, bowel obstruction? Patient does take daily aspirin Last admit - none FUNCTIONAL STATUS: family reported to medical team that he still mowes the lawn? PAST MEDICAL HISTORY Diagnosis Date Carotid atherosclerosis [...] surgery REMV CATARACT EXTRACAP,INSERT LENS 2020 VASECTOMY FAMILY HISTORY Problem Relation Age of Onset Heart disease Mother Heart disease Father Heart disease Brother Social History Tobacco Use Smoking status: Every Day Current packs/day: 1.00 Types: Cigarettes Smokeless tobacco: Never Substance Use Topics Alcohol use: Yes Comment: occasional Drug use: Never albuterol HFA (PROVENTIL HFA, VENTOLIN HFA) 90 mcg/actuation inhaler, Inhale 8 puffs as instructed every 6 hours as needed for wheezing/shortness of breath., Disp: , Rfl: levothyroxine (SYNTHROID) 25 mcg tablet, Take 25 mcg by mouth daily before breakfast., Disp: , Rfl: propranolol ER (INDERAL LA) 60 mg 24 hr capsule, Take 60 mg by mouth once daily., Disp: , Rfl: Telmisartan 20 mg tablet, Take 10 mg by mouth once daily., Disp: , Rfl: INCRUSE ELLIPTA 62.5 mcg/actuation inhaler, Inhale 1 Puff as instructed once daily., Disp: , Rfl: atorvastatin (LIPITOR) 40 mg tablet, Take 1 tablet by mouth every afternoon., Disp: , Rfl: MULTIVITAMIN ORAL, Take by mouth once daily., Disp: , Rfl: ascorbic acid (VITAMIN C ORAL), Take by mouth once daily., Disp: , Rfl: LOW-DOSE ASPIRIN ORAL, Take by mouth once daily., Disp: , Rfl: potassium citrate ER (UROCIT-K) 10 mEq (1,080 mg), Take 1,080 mg by mouth once daily., Disp: , Rfl: ALLERGIES No Known Allergies COMPLETE REVIEW OF SYSTEMS: See HPI Objective PHYSICAL EXAM: GENERAL: Alert, No Distress, Uncooperative, does not follow requests/answer questions innapropriately SKIN: Skin color, texture, turgor normal. No rashes or lesions. LUNGS: Unlabored breathing on O2 Therapy: Room Air on sating at SpO2: 95 % CARDIAC: Regular rate and rhythm as above, ABDOMEN: Benign, Soft, and non-tender EXTREMITIES: ROM of all joint grossly normal: strength grossly normal bilaterally. No deformities noted. BP 146/75 Pulse 86 Temp (Src) 99 (Axillary) Resp 16 Ht 5' 2 (1.58m) Wt 118 lb 13.3 oz (53.9kg) SpO2 95% BMI 21.73 kg/(m2). O2 Therapy: Room Air Temp (24hrs), Av.2 ?C (99 ?F), Min:37.2 ?C (99 ?F), Max:37.2 ?C (99 ?F) Body mass index is 21.73 kg/m?. DATA: Diagnostic tests reviewed for today's visit: Recent Results (from the past 48 hours) CREATININE BLD Collection Time: 11/20/24 9:54 PM Result Value Ref Range Creatinine 0.84 0.50 - 1.40 mg/dL Estimated Glomerular Filtration Rate 93 >=60 mL/min/1.73m? ] Assessment/Plan 69 year old male transferred from [facility] with concerns of cholelithiasis/acute on (more content not included)... Normal [facility] Comprehensive metabolic 2000 panelon 11-21-2024 Albumin [Mass/Vol] 2.9 g/dL Low 3.2-5.0 [facility] Comment on above: Order Comment: Tiffanie conrad Type: BLOOD SPECIMEN Ordering Facility: [facility] Address: [address] [place] [address] Performed By: #### 2 4323-8, 304-3 #### [facility] CLIA [id number] [address] [place] [address] [place] [facility] ALP [Catalytic activity/Vol] 57 U/L Normal 45-117 [facility] Comment on above: Order Comment: Tiffnaie conrad Type: BLOOD SPECIMEN Ordering Facility: [facility] Address: [address] [place] [address] Performed By: #### 2 4323-8, 3040-3 #### [facility] CLIA [id number] [address] [place] [address] [place] ALT [Catalytic activity/Vol] 84 U/L High 13-61 [facility] Comment on above: Order Comment: Tiffanie conrad Type: BLOOD SPECIMEN Ordering Facility: [facility] Address: [address] [place] [address] Result Comment: Resu lts may be falsely depressed after the administration of Sulfasalazine and/or Sulfapyridine. Performed By: #### 2 4323-8, 3040-3 #### [facility] CLIA [id number] [address] [place] [address] [place] Anion gap [Moles/Vol] 7 mmol/L Normal 5-16 [facility] Comment on above: Order Comment: Speci men Type: BLOOD SPECIMEN Ordering Facility: [facility] Address: [address] [place] [address] Performed By: #### 2 4323-8, 0-3 #### [facility] CLIA [id number] [address] [place] [address] [place] AST [Catalytic activity/Vol] Normal [facility] Comment on above: Order Comment: Speci men Type: BLOOD SPECIMEN Ordering Facility: [facility] Address: [address] [place] [address] Result Comment: Unab le to assay due to interference from hemolysis. Suggest reorder as clinically indicated. Spoke with Angelina Results may be falsely depressed after the administration of Sulfasalazine and/or Sulfapyridine. Performed By: #### 2 4323-8, 0-3 #### [facility] CLIA [id number] [address] [place] [address] [place] Bilirubin [Mass/Vol] 0.9 mg/dL Normal 0.2-1.0 [facility] Comment on above: Order Comment: Speci men Type: BLOOD SPECIMEN Ordering Facility: [facility] Address: [address] [place] [address] Performed By: #### 2 4323-8, 3040-3 #### [facility] CLIA [id number] [address] [place] [address] [place] Calcium [Mass/Vol] 8.4 mg/dL Low 8.5-10.5 [facility] Comment on above: Order Comment: Speci men Type: BLOOD SPECIMEN Ordering Facility: [facility] Address: [address] [place], [place] [id number] Performed By: #### 2 4323-8, 3040-3 #### [facility] CLIA [id number] [address] [place] [address] [place] Chloride [Moles/Vol] 104 mmol/L Normal 98-107 [facility] Comment on above: Order Comment: Speci men Type: BLOOD SPECIMEN Ordering Facility: [facility] Address: [address] [place] [address] Performed By: #### 2 4323-8, 0-3 #### [facility] CLIA [id number] [address] [place] [address] [place] CO2 [Moles/Vol] 23 mmol/L Normal 21-32 [facility] Comment on above: Order Comment: Speci men Type: BLOOD SPECIMEN Ordering Facility: [facility] Address: [address] [place] [address] Performed By: #### 2 4323-8, 304-3 #### [facility] CLIA [id number] [address] [place], [place] [id number] [place] Creatinine [Mass/Vol] 0.84 mg/dL Normal 0.50-1.40 [facility] Comment on above: Order Comment: Speci men Type: BLOOD SPECIMEN Ordering Facility: [facility] Address: [address] [place] [address] Result Comment: Erica ents receiving either N-Acetylcysteine (NAC) or Metamizole prior to venipuncture, may have falsely depressed results. Performed By: #### 2 4323-8, 3040-3 #### [facility] CLIA [id number] [address] [place], [place] [id number] [place] Creatinine and Glomerular filtration rate.predicted panel (S/P/Bld) 93 mL/min/1.73m??? Normal >=60 [facility] Comment on above: Order Comment: Speci men Type: BLOOD SPECIMEN Ordering Facility: [facility] Address: [address] [place] [address] Result Comment: Amarilis mated Glomerular Filtration Rate (eGFR) is calculated using the 2020 CKD-EPI creatinine equation. This equation utilizes serum creatinine, sex, and age as parameters. The creatinine assay has traceable calibration to isotope dilution-mass spectrometry. Refer to KDIGO guidelines for clinical interpretation. In patients with unstable renal function, e.g. those with acute kidney injury, the eGFR may not accurately reflect actual GFR. Performed By: #### 2 4323-8, 3039-3 #### [facility] CLIA [id number] [address] [place], [place] [id number] [place] Glucose [Mass/Vol] 107 mg/dL High 70-100 [facility] Comment on above: Order Comment: Tiffanie conrad Type: BLOOD SPECIMEN Ordering Facility: [facility] Address: [address] [id number] Result Comment: The [place] Diabetes [employer] (ADA) provides guidance for cutoff values for fasting glucose and random glucose. The ADA defines fasting as no caloric intake for at least 8 hours. Fasting plasma glucose results between 100 to 125 mg/dL indicate increased risk for diabetes (prediabetes). Fasting plasma glucose results greater than or equal to 126 mg/dL meet the criteria for diagnosis of diabetes. In the absence of unequivocal hyperglycemia, results should be confirmed by repeat testing. In a patient with classic symptoms of hyperglycemia or hyperglycemic crisis, random plasma glucose results greater than or equal to 200 mg/dL meet the criteria for diagnosis of diabetes. Reference: Standards of Medical Care in Diabetes 2016, [place] [employer] Association. Diabetes Care. 2016.39(Suppl 1). Results may be falsely elevated after the administration of Sulfapyridine. Results may be falsely depressed after the administration of Sulfasalazine. Performed By: #### 2 4323-8, 3 #### [facility] CLIA [id number] [address] [place], [place] [id number] [place] Potassium [Moles/Vol] Normal [facility] Comment on above: Order Comment: Tiffanie conrad Type: BLOOD SPECIMEN Ordering Facility: [facility] Address: [address] [place] [address] Result Comment: Unab le to assay due to interference from hemolysis. Suggest reorder as clinically indicated. Spoke with Angelina Performed By: #### 2 4323-8, 3039-3 #### [facility] CLIA [id number] [address] [place] [address] [place] Protein [Mass/Vol] 5.5 g/dL Low 6.0-8.5 [facility] Comment on above: Order Comment: Speci men Type: BLOOD SPECIMEN Ordering Facility: [facility] Address: [address] [place] [address] Performed By: #### 2 4323-8, 3040-3 #### [facility] CLIA [id number] [address] [place] [address] [place] Sodium [Moles/Vol] 134 mmol/L Low 136-145 [facility] Comment on above: Order Comment: Speci men Type: BLOOD SPECIMEN Ordering Facility: [facility] Address: [address] [place] [address] Performed By: #### 2 4323-8, 3040-3 #### [facility] CLIA [id number] [address] [place] [address] [place] Urea nitrogen [Mass/Vol] 8 mg/dL Normal 7-26 [facility] Comment on above: Order Comment: Speci men Type: BLOOD SPECIMEN Ordering Facility: [facility] Address: [address] [place] [address] Performed By: #### 2 4323-8, 3040-3 #### [facility] CLIA [id number] [address] [place] [address] [place] GI CHOLANGIOGRAM T-TUBEon GI CHOLANGIOGRAM T-TUBE * * *Final Repor t* * * DATE OF EXAM: Nov 21 2024 1:00PM [facility] 7305 - GI CHOLANGIOGRAM T-TUBE / PROCEDURE REASON: * * * * Physician Interpretation * * * * PROCEDURE: CHOLECYSTOSTOMY TUBE PLACEMENT Procedural Personnel Attending physician(s): Misael Perea M.D. Fellow physician(s): None Resident physician(s): None Advanced practice provider(s): None Medical Student(s): None Pre-procedure diagnosis: Acute cholecystitis. Nonoperative candidate. Post-procedure diagnosis: Same Indication: Acute cholecystitis Additional clinical history: None ____ PROCEDURE SUMMARY: - Cholecystostomy tube placement under ultrasound guidance - Additional procedure(s): None PROCEDURE DETAILS: Pre-procedure Consent: Risks, benefits, treatment options, potential complications and personnel to be involved were discussed (including the risks of radiation exposure, contrast and anesthesia administration, and any equipment needed for the procedure to ensure best possible outcome) with the patient and all questions were answered and consent was obtained prior to procedure. Premedicated for contrast allergy: n/a Transfusion of blood products: No Medication reconciliation: The patient's medications and allergies were reviewed in the electronic medical record and reconciled to the proposed procedure/treatment. Kamila-procedure discussion: The appropriate elements of the pre-procedure discussion, safety check list and sign-out were performed. Time out: A time out was performed immediately prior to procedure start with the nursing and interventional team, correctly identifying the name, date of , procedure, anatomy (including marking of site and side if applicable), patient position, procedure consent form, relevant diagnostic and radiology test results, antibiotic administration if applicable, safety precautions, and procedure-specific equipment needs. Start of procedure: 1240 End of procedure: 1300 Patient position: Supine Preparation: The site was prepared and draped using all elements of maximal sterile barrier technique including sterile gloves, sterile gown, cap, mask, large sterile sheet, sterile ultrasound probe cover, hand hygiene and cutaneous antisepsis. Antibiotics: Already on appropriate antibiotic(s) Antibiotic infusion start time: N/A Prophylactic antibiotic administered: None Additional med: None Additional med: None Contrast Contrast agent: VISPAQUE 270 Contrast volume (mL): 4 Image Guidance: Access was obtained into the target lesion under direct sonographic and fluoroscopic visualization. A sonographic image was obtained and placed into the permanent archive for documentation. Radiation Dose FLUOROSCOPIC RADIATION SUMMARY: Plane A, Air Kerma: 5.0 mGy Dose Area Product (DAP): 172.2 mcGy-m2 Fluoro Time: 0:48 min:sec Radiation dose exceed 5 Gy: No If radiation dose exceeded 5 Gy, was counseling and instructional brochure provided: N/A Anesthesia/sedation Level of anesthesia/sedation: Monitored anesthesia care Anesthesia/sedation administered by: Anesthesiology Total intra-service sedation time (minutes): 0 Local anesthesia: 1 % lidocaine Cholecystostomy tube placement Initial imaging was performed. Local anesthesia was administered. The gallbladder was accessed via a transhepatic approach using an access needle followed by wire insertion and serial dilation and a cholecystostomy tube was placed. Position within the gallbladder was confirmed. Initial imaging findings: Distended gallbladder with cholelithiasis. Cholecystostomy tube placed: [employer] 10 F all purpose drainage catheter External catheter securement: Non-absorbable suture Additional Details Additional description of procedure: None Equipment details: None Number and Type of Removed Specimens: 1: Microbiology Estimated blood loss (mL): Less than 10 Standardized report: [email or web address] Complications There were no immediate complications and no other complications. Conclusion The patient was comfortable and was transferred to the PACU in stable condition. The procedure was performed by the: attending radiologist, without an program support assistant. The attending radiologist performed the following procedural activities: Entire procedure IMPRESSION: INSERTION OF CHOLECYSTOSTOMY TUBE WITH DRAINAGE OF DARK BILE. PLAN: Flush every other day with 5-10 cc sterile normal saline to maintain patency. Connect to bag for passive drainage. Patient may return in 6 weeks for routine exchange. Attestation Signer name: Misael Perea MD I attest that I was present for the entire procedure. I reviewed the stored images and agree with the report as written. Commercial Horticulture Instructor: [facility] Transcribe Date/Time: Nov 21 2024 1:47P Dictated by : MISAEL PEREA MD This examination was interpreted an (more content not included)... [facility] IR [facility]LE [facility] 11-21-2024 IR [facility] * * *Final Rep ort* * * DATE OF EXAM: Nov 21 2024 1:00PM A 6309 - IR [facility] G[facility]LE [facility] / PROCEDURE REASON: * * * * Physician Interpretation * * * * PROCEDURE: CHOLECYSTOSTOMY TUBE PLACEMENT Procedural Personnel Attending physician(s): Misael Perea M.D. Fellow physician(s): None Resident physician(s): None Advanced practice provider(s): None Medical Student(s): None Pre-procedure diagnosis: Acute cholecystitis. Nonoperative candidate. Post-procedure diagnosis: Same Indication: Acute cholecystitis Additional clinical history: None ____ PROCEDURE SUMMARY: - Cholecystostomy tube placement under ultrasound guidance - Additional procedure(s): None PROCEDURE DETAILS: Pre-procedure Consent: Risks, benefits, treatment options, potential complications and personnel to be involved were discussed (including the risks of radiation exposure, contrast and anesthesia administration, and any equipment needed for the procedure to ensure best possible outcome) with the patient and all questions were answered and consent was obtained prior to procedure. Premedicated for contrast allergy: n/a Transfusion of blood products: No Medication reconciliation: The patient's medications and allergies were reviewed in the electronic medical record and reconciled to the proposed procedure/treatment. Kamila-procedure discussion: The appropriate elements of the pre-procedure discussion, safety check list and sign-out were performed. Time out: A time out was performed immediately prior to procedure start with the nursing and interventional team, correctly identifying the name, date of , procedure, anatomy (including marking of site and side if applicable), patient position, procedure consent form, relevant diagnostic and radiology test results, antibiotic administration if applicable, safety precautions, and procedure-specific equipment needs. Start of procedure: 1240 End of procedure: 1300 Patient position: Supine Preparation: The site was prepared and draped using all elements of maximal sterile barrier technique including sterile gloves, sterile gown, cap, mask, large sterile sheet, sterile ultrasound probe cover, hand hygiene and cutaneous antisepsis. Antibiotics: Already on appropriate antibiotic(s) Antibiotic infusion start time: N/A Prophylactic antibiotic administered: None Additional med: None Additional med: None Contrast Contrast agent: VISPAQUE 270 Contrast volume (mL): 4 Image Guidance: Access was obtained into the target lesion under direct sonographic and fluoroscopic visualization. A sonographic image was obtained and placed into the permanent archive for documentation. Radiation Dose FLUOROSCOPIC RADIATION SUMMARY: Plane A, Air Kerma: 5.0 mGy Dose Area Product (DAP): 172.2 mcGy-m2 Fluoro Time: 0:48 min:sec Radiation dose exceed 5 Gy: No If radiation dose exceeded 5 Gy, was counseling and instructional brochure provided: N/A Anesthesia/sedation Level of anesthesia/sedation: Monitored anesthesia care Anesthesia/sedation administered by: Anesthesiology Total intra-service sedation time (minutes): 0 Local anesthesia: 1 % lidocaine Cholecystostomy tube placement Initial imaging was performed. Local anesthesia was administered. The gallbladder was accessed via a transhepatic approach using an access needle followed by wire insertion and serial dilation and a cholecystostomy tube was placed. Position within the gallbladder was confirmed. Initial imaging findings: Distended gallbladder with cholelithiasis. Cholecystostomy tube placed: [employer] 10 F all purpose drainage catheter External catheter securement: Non-absorbable suture Additional Details Additional description of procedure: None Equipment details: None Number and Type of Removed Specimens: 1: Microbiology Estimated blood loss (mL): Less than 10 Standardized report: [email or web address] Complications There were no immediate complications and no other complications. Conclusion The patient was comfortable and was transferred to the PACU in stable condition. The procedure was performed by the: attending radiologist, without an program support assistant. The attending radiologist performed the following procedural activities: Entire procedure IMPRESSION: INSERTION OF CHOLECYSTOSTOMY TUBE WITH DRAINAGE OF DARK BILE. PLAN: Flush every other day with 5-10 cc sterile normal saline to maintain patency. Connect to bag for passive drainage. Patient may return in 6 weeks for routine exchange. Attestation Signer name: Misael Perea MD I attest that I was present for the entire procedure. I reviewed the stored images and agree with the report as written. 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 Normal [facility] IR PERC FRANTZ NEW ACCESSon 0 11-21-2024 IR PERC FRANTZ NEW ACCESS * * *Final Repo rt* * * DATE OF EXAM: Nov 21 2024 1:00PM A 0751 - IR PERC FRANTZ NEW ACCESS / PROCEDURE REASON: * * * * Physician Interpretation * * * * PROCEDURE: CHOLECYSTOSTOMY TUBE PLACEMENT Procedural Personnel Attending physician(s): Misael Perea M.D. Fellow physician(s): None Resident physician(s): None Advanced practice provider(s): None Medical Student(s): None Pre-procedure diagnosis: Acute cholecystitis. Nonoperative candidate. Post-procedure diagnosis: Same Indication: Acute cholecystitis Additional clinical history: None ____ PROCEDURE SUMMARY: - Cholecystostomy tube placement under ultrasound guidance - Additional procedure(s): None PROCEDURE DETAILS: Pre-procedure Consent: Risks, benefits, treatment options, potential complications and personnel to be involved were discussed (including the risks of radiation exposure, contrast and anesthesia administration, and any equipment needed for the procedure to ensure best possible outcome) with the patient and all questions were answered and consent was obtained prior to procedure. Premedicated for contrast allergy: n/a Transfusion of blood products: No Medication reconciliation: The patient's medications and allergies were reviewed in the electronic medical record and reconciled to the proposed procedure/treatment. Kamila-procedure discussion: The appropriate elements of the pre-procedure discussion, safety check list and sign-out were performed. Time out: A time out was performed immediately prior to procedure start with the nursing and interventional team, correctly identifying the name, date of , procedure, anatomy (including marking of site and side if applicable), patient position, procedure consent form, relevant diagnostic and radiology test results, antibiotic administration if applicable, safety precautions, and procedure-specific equipment needs. Start of procedure: 1240 End of procedure: 1300 Patient position: Supine Preparation: The site was prepared and draped using all elements of maximal sterile barrier technique including sterile gloves, sterile gown, cap, mask, large sterile sheet, sterile ultrasound probe cover, hand hygiene and cutaneous antisepsis. Antibiotics: Already on appropriate antibiotic(s) Antibiotic infusion start time: N/A Prophylactic antibiotic administered: None Additional med: None Additional med: None Contrast Contrast agent: VISPAQUE 270 Contrast volume (mL): 4 Image Guidance: Access was obtained into the target lesion under direct sonographic and fluoroscopic visualization. A sonographic image was obtained and placed into the permanent archive for documentation. Radiation Dose FLUOROSCOPIC RADIATION SUMMARY: Plane A, Air Kerma: 5.0 mGy Dose Area Product (DAP): 172.2 mcGy-m2 Fluoro Time: 0:48 min:sec Radiation dose exceed 5 Gy: No If radiation dose exceeded 5 Gy, was counseling and instructional brochure provided: N/A Anesthesia/sedation Level of anesthesia/sedation: Monitored anesthesia care Anesthesia/sedation administered by: Anesthesiology Total intra-service sedation time (minutes): 0 Local anesthesia: 1 % lidocaine Cholecystostomy tube placement Initial imaging was performed. Local anesthesia was administered. The gallbladder was accessed via a transhepatic approach using an access needle followed by wire insertion and serial dilation and a cholecystostomy tube was placed. Position within the gallbladder was confirmed. Initial imaging findings: Distended gallbladder with cholelithiasis. Cholecystostomy tube placed: [employer] 10 F all purpose drainage catheter External catheter securement: Non-absorbable suture Additional Details Additional description of procedure: None Equipment details: None Number and Type of Removed Specimens: 1: Microbiology Estimated blood loss (mL): Less than 10 Standardized report: [email or web address] Complications There were no immediate complications and no other complications. Conclusion The patient was comfortable and was transferred to the PACU in stable condition. The procedure was performed by the: attending radiologist, without an program support assistant. The attending radiologist performed the following procedural activities: Entire procedure IMPRESSION: INSERTION OF CHOLECYSTOSTOMY TUBE WITH DRAINAGE OF DARK BILE. PLAN: Flush every other day with 5-10 cc sterile normal saline to maintain patency. Connect to bag for passive drainage. Patient may return in 6 weeks for routine exchange. Attestation Signer name: Misael Perea MD I attest that I was present for the entire procedure. I reviewed the stored images and agree with the report as written. 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 Normal [facility] IR US GUIDE NEEDLE PLACE/BIO PSYon 11-21-[address]/BIOPSY * * *Final Report* * * DATE OF EXAM: Nov 21 2024 1:00PM [facility] 0924 - IR US GUIDE NEEDLE PLACE/BIOPSY / PROCEDURE REASON: * * * * Physician Interpretation * * * * PROCEDURE: CHOLECYSTOSTOMY TUBE PLACEMENT Procedural Personnel Attending physician(s): Misael Marjorie, M.D. Fellow physician(s): None Resident physician(s): None Advanced practice provider(s): None Medical Student(s): None Pre-procedure diagnosis: Acute cholecystitis. Nonoperative candidate. Post-procedure diagnosis: Same Indication: Acute cholecystitis Additional clinical history: None ____ PROCEDURE SUMMARY: - Cholecystostomy tube placement under ultrasound guidance - Additional procedure(s): None PROCEDURE DETAILS: Pre-procedure Consent: Risks, benefits, treatment options, potential complications and personnel to be involved were discussed (including the risks of radiation exposure, contrast and anesthesia administration, and any equipment needed for the procedure to ensure best possible outcome) with the patient and all questions were answered and consent was obtained prior to procedure. Premedicated for contrast allergy: n/a Transfusion of blood products: No Medication reconciliation: The patient's medications and allergies were reviewed in the electronic medical record and reconciled to the proposed procedure/treatment. Kamila-procedure discussion: The appropriate elements of the pre-procedure discussion, safety check list and sign-out were performed. Time out: A time out was performed immediately prior to procedure start with the nursing and interventional team, correctly identifying the name, date of , procedure, anatomy (including marking of site and side if applicable), patient position, procedure consent form, relevant diagnostic and radiology test results, antibiotic administration if applicable, safety precautions, and procedure-specific equipment needs. Start of procedure: 1240 End of procedure: 1300 Patient position: Supine Preparation: The site was prepared and draped using all elements of maximal sterile barrier technique including sterile gloves, sterile gown, cap, mask, large sterile sheet, sterile ultrasound probe cover, hand hygiene and cutaneous antisepsis. Antibiotics: Already on appropriate antibiotic(s) Antibiotic infusion start time: N/A Prophylactic antibiotic administered: None Additional med: None Additional med: None Contrast Contrast agent: VISPAQUE 270 Contrast volume (mL): 4 Image Guidance: Access was obtained into the target lesion under direct sonographic and fluoroscopic visualization. A sonographic image was obtained and placed into the permanent archive for documentation. Radiation Dose FLUOROSCOPIC RADIATION SUMMARY: Plane A, Air Kerma: 5.0 mGy Dose Area Product (DAP): 172.2 mcGy-m2 Fluoro Time: 0:48 min:sec Radiation dose exceed 5 Gy: No If radiation dose exceeded 5 Gy, was counseling and instructional brochure provided: N/A Anesthesia/sedation Level of anesthesia/sedation: Monitored anesthesia care Anesthesia/sedation administered by: Anesthesiology Total intra-service sedation time (minutes): 0 Local anesthesia: 1 % lidocaine Cholecystostomy tube placement Initial imaging was performed. Local anesthesia was administered. The gallbladder was accessed via a transhepatic approach using an access needle followed by wire insertion and serial dilation and a cholecystostomy tube was placed. Position within the gallbladder was confirmed. Initial imaging findings: Distended gallbladder with cholelithiasis. Cholecystostomy tube placed: [employer] 10 F all purpose drainage catheter External catheter securement: Non-absorbable suture Additional Details Additional description of procedure: None Equipment details: None Number and Type of Removed Specimens: 1: Microbiology Estimated blood loss (mL): Less than 10 Standardized report: [email or web address] Complications There were no immediate complications and no other complications. Conclusion The patient was comfortable and was transferred to the PACU in stable condition. The procedure was performed by the: attending radiologist, without an program support assistant. The attending radiologist performed the following procedural activities: Entire procedure IMPRESSION: INSERTION OF CHOLECYSTOSTOMY TUBE WITH DRAINAGE OF DARK BILE. PLAN: Flush every other day with 5-10 cc sterile normal saline to maintain patency. Connect to bag for passive drainage. Patient may return in 6 weeks for routine exchange. Attestation Signer name: Misael Perea MD I attest that I was present for the entire procedure. I reviewed the stored images and agree with the report as written. 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 Normal [facility] Lipase SerPl-cCncon 11-22-19 25 Lipase [Catalytic activity/Vol] 52 U/L Normal 12-60 [facility] Comment on above: Order Comment: Speci men Type: BLOOD SPECIMEN Ordering Facility: [facility] Address: [address] [place] [address] [address] [id number] Performed By: #### 2 6927-8, 3040-3 #### [facility] CLIA [id number] [address] [place] [address] [place] MORPH WAM REFLEXon Platelets Estimate (Bld) [#/Vol] Decreased Normal [facility] Comment on above: Order Comment: Speci men Type: BLOOD SPECIMEN Ordering Facility: [facility] Address: [address] [place] [address] Performed By: #### 5 8410-2, WAMMR #### [facility] CLIA [id number] [address] [place] [address] [place] Polychromasia LM Ql (Bld) Slight [facility] Comment on above: Order Comment: Speci men Type: BLOOD SPECIMEN Ordering Facility: [facility] Address: [address] [place] [address] Performed By: #### 5 8410-2, WAMMR #### [facility] CLIA [id number] [address] [place] [address] [place] RED CELL MORPH Reviewed: unremarkable [facility] Comment on above: Order Comment: Speci men Type: BLOOD SPECIMEN Ordering Facility: [facility] Address: [address] [place] [address] Performed By: #### 5 8410-2, WAMMR #### [facility] CLIA [id number] [address] [place] [address] [place] NURSING PROGon 11-21-2024 NURSING PROG HNO ID: [id number] Author: ZOHAIB RAMIREZ RN Service: Nursing Author Type: Registered Nurse Type: Nursing Progress Note Filed: 11/21/2024 13:09 Note Text: Procedure complete. Specimen taken to lab by RN. 10Fr x25cm Skater drain plain. Stayfix and tegaderm dressing placed over site. Pt tolerated well. Bedside report given along w/site observation. [facility] POTASSIUMon 11-21-2024 Potassium [Moles/Vol] 3.8 mmol/L Normal 3.5-5.1 [facility] Comment on above: Order Comment: Tiffanie conrad Type: BLOOD SPECIMEN Ordering Facility: [facility] Address: [address] [id number] Performed By: #### K 1 #### [facility] CLIA [id number] [address] [place], [place] [id number] [place] PT panel Coag (PPP)on 2024 INR Coag (PPP) [Relative time] 1.3 {INR} Normal 0.9-1.3 [facility] Comment on above: Order Comment: Specsalvador conrad Type: BLOOD SPECIMEN Ordering Facility: [facility] Address: [address] [place] [address] Result Comment: Damaris min K Antagonist (VKA) Therapeutic Range: INR 2 to 3 (Target INR of 2.5) Note: For patients treated with VKA drugs, such as warfarin, the [employer] 2012 Guideline recommends a therapeutic INR range of 2 to 3 (target INR of 2.5). This recommendation includes high-risk patients with antiphospholipid syndrome with previous arterial or venous thromboembolism, current-generation mechanical or bioprosthetic aortic heart valve replacement. Note: Patients with mechanical aortic valve replacement and additional risk factors for thromboembolic events (atrial fibrillation, previous thromboembolism, LV dysfunction, hypercoagulable conditions) or an older generation mechanical AVR (i.e., ball in-Cage) or any mechanical MVR should have a INR therapeutic range of 2.5 to 3.5 (target INR of 3). Celso GH, et al. Chest 2012, 141:7S-47S Sina RA et al. [facility] 2017, 70: 252-289 Performed By: #### 3 4528-0 #### [facility] CLIA [id number] [address] [place] [address] [place] PT Coag (PPP) [Time] 13.4 s High 9.7-13.0 [facility] Comment on above: Order Comment: Tiffanie conrad Type: BLOOD SPECIMEN Ordering Facility: [facility] Address: [address] [place] [address] Performed By: #### 3 4528-0 #### [facility] CLIA [id number] [facility] [place] [address] [facility] Abscess/Fistula/Sinus Tracto n 11-20-2024 Abscess/Fistula/Sinus Tract [facility] Imaging Services [address] [place] [address] Abscess/Fistula/Sinus Tract MR#: [id number] Acct: [id number] Name: FAHAD KIRK Rep #: [id number] : 1955 M 69 From: Fadi blackburn MD PCP: Dr. Gosia Delaney MD Status: ADM IN Study: Abscess/Fistula/Sinus Tract Date of Exam: 11/07 09/01 Exam# [id number] Ordering Dr: Yakov Samano PROCEDURE: Percutaneous cholecystostomy. 11/20/2024 REASON FOR EXAM: ACUTE CHOLECYSTITIS TECHNIQUE: The procedure as well as the benefits and possible complications including infection and bleeding were explained to the patient the patient's . Informed consent was obtained. Conscious sedation was performed. The patient received 2 mg of Versed and 50 mcg of fentanyl intravenously. Conscious sedation was started at 12:15 p.m. and terminated at 12:43 p.m.. The patient was independently monitored by the department nurse. One or more dose reduction techniques were used (e.g., Automated exposure control, adjustment of the mA and/or kV according to patient size, use of iterative reconstruction technique). RADIATION DOSE SUMMARY: CTDlvol: 22 MGy DLP: 474.59 mGycm COMPARISON: Prior CT scan of the abdomen and pelvis dated November 19, 2024. FINDINGS: The patient was in the supine position. The patient became agitated and aggressive. An 8 Nigerien catheter was placed into the gallbladder lumen. Approximately 25 cc of dark brown fluid was aspirated. The patient became more aggressive and pulled the catheter out. The patient was stepping off the table. The procedure was terminated. CT/Abscess/Fistula/Sin us Tract IMPRESSION: Attempted percutaneous cholecystostomy tube placement. The patient was very uncooperative as described. 25 cc of dark brown colored fluid was aspirated. Reading Location: [facility]1 CC: Dr. Yakov Samano MD; Dr. Gosia Delaney MD [employer] Instructor: Signed Normal [facility] Absolute lymphocyte countOrd ered By: Yakov Samano on 11-20-2024 Lymphocytes Auto (Unsp spec) [#/Vol] 0.70 10*3/uL Low 0.83-4.51 [facility] Absolute neutrophil countOrd ered By: Yakov Samano on 11-20-2024 Neutrophils (Bld) [#/Vol] 14.8 10*3/uL High 2.0-7.7 [facility] Anion gap in Serum or Plasma Ordered By: Yakov Samano on 11-20-2024 Anion gap [Moles/Vol] 13 mmol/L 5-15 [facility] Automated lymphocyte count a s percentage of total leukocytesOrdered By: Yakov Samano on 11-20-2024 Lymphocytes/100 WBC Auto (Unsp spec) 4.2 % Low 19-41 [facility] BUN/creatinine ratioOrdered By: Yakov Samano on 11-20-2024 Urea nitrogen/Creatinine [Mass ratio] 16.8 mg/mg 10-20 [facility] Basophil percentageOrdered B y: Kevin Genao on 11-20-2024 Basophils/100 WBC (Bld) 0.2 % Normal 0-[address] [facility] Comment on above: Performed By: #### L 501.4021, L100.0100, L500.2500 #### [facility] [address] [place], [address] Bedside Glucoseon 11-20-2024 FINGERSTICK GLU 114 mg/dL High 74-106 [facility] Comment on above: Result Comment: BRIANNA GEMENT OF PATIENT CARE PER NURSING PROTOCOL Performed By: #### L 500.3400, L501.2450 #### [facility] [address] [place], [address] FINGERSTICK GLU 115 mg/dL High 74-106 [facility] Comment on above: Result Comment: BRIANNA GEMENT OF PATIENT CARE PER NURSING PROTOCOL Performed By: #### L 501.4021, L100.0100, L500.2500 #### [facility] [address] [place], [address] FINGERSTICK GLU 119 mg/dL High 74-106 [facility] Comment on above: Result Comment: BRIANNA ALFRED OF PATIENT CARE PER NURSING PROTOCOL Performed By: #### L 501.4021, L100.0100, L500.2500 #### [facility] [address] [place], [address] Bilirubin, totalOrdered By: Yakov Samano on 11-20-2024 Bilirubin [Mass/Vol] 1.24 mg/dL 0.00-1.30 [facility] CBC W/Diff, Automatedon 11-07 Absolute Lymph 0.70 X10 3/uL Low 0.83-4.51 [facility] Comment on above: Performed By: #### L 501.4021, L100.0100, L500.2500 #### [facility] [address] [place], [address] Absolute Neut 14.8 X10 3/uL High 2.0-7.7 [facility] Comment on above: Performed By: #### L 501.4021, L100.0100, L500.2500 #### [facility] [address] [place], [address] Eosinophils/100 WBC (Bld) 0.1 % Normal 0-5 [facility] Comment on above: Performed By: #### L 501.4021, L100.0100, L500.2500 #### [facility] [address] [place], [address] Erythrocyte distribution width (RBC) [Ratio] 13.0 % Normal 11.6-14.6 [facility] Comment on above: Performed By: #### L 501.4021, L100.0100, L500.2500 #### [facility] [address] [place], [address] Hematocrit (Bld) [Volume fraction] 39.7 % Low 40-54 [facility] Comment on above: Performed By: #### L 501.4021, L100.0100, L500.2500 #### [facility] [address] [place], [address] IG% 0.400 Normal 0.0-0.9 [facility] Comment on above: Result Comment: IG% - Immature Granulocytes (promyelocytes, myelocytes and metamyelocytes) > 1% indicates that a LEFT SHIFT is Present. Performed By: #### L 501.4021, L100.0100, L500.2500 #### [facility] [address] [place], [address] Lymphocytes/100 WBC (Bld) 4.2 % Low 19-41 [facility] Comment on above: Performed By: #### L 501.4021, L100.0100, L500.2500 #### [facility] [address] [place], [address] MCH (RBC) [Entitic mass] 31.5 pg Normal 27.0-32.0 [facility] Comment on above: Performed By: #### L 501.4021, L100.0100, L500.2500 #### [facility] [address] [place], [address] MCHC (RBC) [Mass/Vol] 35.3 g/dL Normal 32-36 [facility] Comment on above: Performed By: #### L 501.4021, L100.0100, L500.2500 #### [facility] [address] [place], [address] MCV (RBC) [Entitic vol] 89.4 fL Normal 80-94 [facility] Comment on above: Performed By: #### L 501.4021, L100.0100, L500.2500 #### [facility] [address] [place], [address] Monocytes/100 WBC (Bld) 6.3 % Normal 0-[address] [facility] Comment on above: Performed By: #### L 501.4021, L100.0100, L500.2500 #### [facility] [address] [place], [address] Neutrophils/100 WBC (Bld) 88.8 % High 47-70 [facility] Comment on above: Performed By: #### L 501.4021, L100.0100, L500.2500 #### [facility] [address] [place], [address] Nucleated RBC (Bld) [#/Vol] 0 10*3/uL Normal 0-5 [facility] Comment on above: Performed By: #### L 501.4021, L100.0100, L500.2500 #### [facility] [address] [place], [address] Platelet mean volume (Bld) [Entitic vol] 10.2 fL Normal 6.2-12.0 [facility] Comment on above: Performed By: #### L 501.4021, L100.0100, L500.2500 #### [facility] [address] [place], [address] Platelets (Bld) [#/Vol] 173 10*3/uL Normal 150-450 [facility] Comment on above: Performed By: #### L 501.4021, L100.0100, L500.2500 #### [facility] [address] [place], [address] RBC (Bld) [#/Vol] 4.44 10*6/uL Low 4.6-6.2 [facility] Comment on above: Performed By: #### L 501.4021, L100.0100, L500.2500 #### [facility] [address] [place], [address] RDW SD 42.8 fl Normal 35.1-43.9 [facility] Comment on above: Performed By: #### L 501.4021, L100.0100, L500.2500 #### [facility] [address] [place], [address] WBC (Bld) [#/Vol] 16.7 10*3/uL High 4.4-11.0 [facility] Comment on above: Performed By: #### L 501.4021, L100.0100, L500.2500 #### [facility] [address] [place], [address] Carbon dioxide, total [Moles /volume] in Central venous bloodOrdered By: Yakov Samano on 11-20-2024 CO2 [Moles/Vol] 22.9 mmol/L 21.0-32.0 [facility] Chloride assayOrdered By: Kassandra Samano on 11-20-2024 Chloride [Moles/Vol] 95 mmol/L Low 98-108 [facility] Comprehensive Metabolic Prof ilon 11-20-2024 Albumin [Mass/Vol] 4.0 g/dL Normal 3.4-4.8 [facility] Comment on above: Performed By: #### L 501.4021, L100.0100, L500.2500 #### [facility] [address] [place], [address] Albumin/Globulin [Mass ratio] 1.6 {ratio} Normal 0.9-2.4 [facility] Comment on above: Performed By: #### L 501.4021, L100.0100, L500.2500 #### [facility] [address] [place], [address] ALK PHOS 111 U/L Normal 40-129 [facility] Comment on above: Performed By: #### L 501.4021, L100.0100, L500.2500 #### [facility] [address] [place], [address] ALT [Catalytic activity/Vol] 215 U/L High <=46 [facility] Comment on above: Performed By: #### L 501.4021, L100.0100, L500.2500 #### [facility] [address] [place], [address] AST [Catalytic activity/Vol] 275 U/L High <=37 [facility] Comment on above: Result Comment: Hemo lysis present, Results??could be affected. ?? Performed By: #### L 501.4021, L100.0100, L500.2500 #### [facility] [address] [place], [address] Bilirubin [Mass/Vol] 1.24 mg/dL Normal 0.00-1.30 [facility] Comment on above: Performed By: #### L 501.4021, L100.0100, L500.2500 #### [facility] [address] [place], [address] BUN/CRE 16.8 RATIO Normal 10-20 [facility] Comment on above: Performed By: #### L 501.4021, L100.0100, L500.2500 #### [facility] [address] [place], [address] Calcium [Mass/Vol] 8.6 mg/dL Normal 7.6-11.0 [facility] Comment on above: Performed By: #### L 501.4021, L100.0100, L500.2500 #### [facility] [address] [place], [address] Chloride [Moles/Vol] 95 mmol/L Low 98-108 [facility] Comment on above: Performed By: #### L 501.4021, L100.0100, L500.2500 #### [facility] [address] [place], [address] CO2 [Moles/Vol] 22.9 mmol/L Normal 21.0-32.0 [facility] Comment on above: Performed By: #### L 501.4021, L100.0100, L500.2500 #### [facility] [address] [place], [address] Creatinine [Mass/Vol] 0.86 mg/dL Normal 0.70-1.20 [facility] Comment on above: Performed By: #### L 501.4021, L100.0100, L500.2500 #### [facility] [address] [place], [address] ECRCL 60.51 ml/min Normal 50-250 [facility] Comment on above: Performed By: #### L 501.4021, L100.0100, L500.2500 #### [facility] [address] [place], [address] GAP 13 Normal 5-15 [facility] Comment on above: Performed By: #### L 501.4021, L100.0100, L500.2500 #### [facility] [address] [place], [address] GFR/1.73 sq M.predicted among non-blacks MDRD (S/P/Bld) [Vol rate/Area] 92 mL/min/{1.73_m2} Normal >60 [facility] Comment on above: Result Comment: mL/m in/1.73m2 CKD-EPI Creatinine Equation (2020) Performed By: #### L 501.4021, L100.0100, L500.2500 #### [facility] [address] [place], [address] Globulin (S) [Mass/Vol] 2.5 g/dL Normal 2.2-4.2 [facility] Comment on above: Performed By: #### L 501.4021, L100.0100, L500.2500 #### [facility] [address] [place], [address] Glucose [Mass/Vol] 117 mg/dL High 70-99 [facility] Comment on above: Performed By: #### L 501.4021, L100.0100, L500.2500 #### [facility] [address] [place], [address] Potassium [Moles/Vol] 4.4 mmol/L Normal 3.3-5.1 [facility] Comment on above: Result Comment: Hemo lysis present, Results??could be affected. ?? Performed By: #### L 501.4021, L100.0100, L500.2500 #### [facility] [address] [place], [address] T PROT 6.5 g/dL Normal 5.9-8.4 [facility] Comment on above: Performed By: #### L 501.4021, L100.0100, L500.2500 #### [facility] [address] [place], [address] Urea nitrogen [Mass/Vol] 15 mg/dL Normal 4-19 [facility] Comment on above: Performed By: #### L 501.4021, L100.0100, L500.2500 #### [facility] [address] [place], [address] Creatinine + eGFR Pnl SerPlB ldon 11-20-2024 Creatinine and Glomerular filtration rate.predicted panel (S/P/Bld) 93 mL/min/1.73m??? Normal >=60 [facility] Comment on above: Order Comment: Speci men Type: BLOOD SPECIMEN Ordering Facility: [facility] Address: [address] [place] [address] Result Comment: Amarilis mated Glomerular Filtration Rate (eGFR) is calculated using the 2020 CKD-EPI creatinine equation. This equation utilizes serum creatinine, sex, and age as parameters. The creatinine assay has traceable calibration to isotope dilution-mass spectrometry. Refer to KDIGO guidelines for clinical interpretation. In patients with unstable renal function, e.g. those with acute kidney injury, the eGFR may not accurately reflect actual GFR. Performed By: #### 4 5066-8 #### [facility] CLIA [id number] [address] [place], [place] [address] [place] Creatinine and Glomerular fi ltration rate.predicted panel (S/P/Bld)on 11-20-2024 Creatinine [Mass/Vol] 0.84 mg/dL Normal 0.50-1.40 [facility] Comment on above: Order Comment: Speci men Type: BLOOD SPECIMEN Ordering Facility: [facility] Address: [address] [place] [address] Result Comment: Erica ents receiving either N-Acetylcysteine (NAC) or Metamizole prior to venipuncture, may have falsely depressed results. Performed By: #### 4 5066-8 #### [facility] CLIA [id number] [address] [place], [place] [id number] [place] Electrocardiogram reportOrde red By: Roberto Serrano on 11-20-2024 EKG study [facility] Cardiovascular Services [address] [place] [address] 12 Lead EKG 11/19/242005 MR#: [id number] Acct: [id number] Name: FAHAD KIRK Rep #:[id number] : 1955 69 From: Roberto holguin MD Attending Dr: Dr. Yakov Samano MD Status: ADM IN Ordering Dr: Kevin Genao DO Date: 0 11/19/24 Location: [facility] Sex: M C Admitted: 11/19/24 Test Reason : CP Blood Pressure : */* mmHG Vent. Rate : 56 BPM Atrial Rate : 56 BPM P-R Int : 136 ms QRS Dur : 90 ms QT Int : 492 ms P-R-T Axes : 73 67 75 degrees QTcB Int : 474 ms Sinus bradycardia Otherwise normal ECG Confirmed by Roberto Serrano ([id number]), manager editorial MARISA CASTELLANOS ([id number]) on 11/20/2024 1:08:13 PM Referred By: MERVIN Confirmed By: Roberto Serrano 11/20/24 1308 Date _ Roberto Serrano MD CC: Dr. Yakov Samano MD; Dr. Gosia Delaney MD; Dr. Kevin Genao DO ~ Signed [facility] Other Phone: Eosinophil percentageOrdered By: Yakov Samano on 11-20-2024 Eosinophils/100 WBC (Bld) 0.1 % 0-5 [facility] Erythrocyte distribution wid th ratioOrdered By: Yakov Samano on 11-20-2024 Erythrocyte distribution width (RBC) [Ratio] 13.0 % 11.6-14.6 [facility] Erythrocyte distribution wid th standard deviationOrdered By: Yakov Samano on 11-20-2024 Erythrocyte distribution width (RBC) [Ratio] 42.8 fl 35.1-43.9 [facility] Glomerular filtration rate ( GFR) estimation/1.73 sq m using serum, plasma, or whole bOrdered By: Yakov Samano on 11-20-2024 GFR/1.73 sq M.predicted among non-blacks MDRD (S/P/Bld) [Vol rate/Area] 92 mL/min/{1.73_m2} >60 [facility] Comment on above: mL/min/1.73m2 CKD-EP I Creatinine Equation (2020) Glucose measurement at bedsi deOrdered By: Yakov Samano on 11-20-2024 Glucose [Mass/Vol] 114 mg/dL High 74-106 [facility] Comment on above: MANAGEMENT OF PATIEN T CARE PER NURSING PROTOCOL HISTORY PHYSICALon HISTORY PHYSICAL HNO ID: [id number] Author: ADRIANA TERAN MD Service: Hospital Medicine Author Type: Physician Type: H&P Filed: 11/20/2024 22:12 Note Text: HISTORY AND PHYSICAL EXAMINATION PATIENT NAME: Fahad Kirk Jr SERVICE DATE AND TIME: 11/20/2024 8:58 PM PRIMARY CARE PHYSICIAN: Gosia Delaney MD CHIEF COMPLAINT: Nausea, vomiting and right upper quad abdominal pain for the past few days resulting in an admission to the hospital now showed to have significant inflammation of the gallbladder. HPI: This is a 69 year old male with a PMH of COPD, hypercholesterolemia, benign essential tremor, hypertension, hypothyroidism, alcohol abuse, tobacco use, bilateral carotid disease, chronic elevated LFTs, who presents to the [place] ER with right upper quad abdominal pain with nausea and vomiting for 1 to 2 days. During their evaluation he is afebrile with normal vital signs. Labs show elevated AST 217 and ALT 126 with total bilirubin of 1.04 (direct 1.04). Lipase elevated 2,936. White count 16,500. CT of the abdomen 11/19/2024 with hydropic containing radiodense stones with marked wall thickening and pericholecystic fluid in addition to inflammatory stranding and fluid peripherally. Pancreas normal size without evidence of mass or surrounding inflammation or ductal dilation. Small volume of perihepatic ascites. Prominent rectal stool burden with mild colonic wall thickening near the hepatic flexure which may be reactive. Right upper quad ultrasound 11/19/2024 with a distended gallbladder, pericholecystic fluid gallbladder wall thickening, cholelithiasis. CBD measures 7 mm. Liver and pancreas unremarkable. The patient was admitted to surgical service at [place] and percutaneous cholecystotomy tube was attempted, however patient became combative and agitated during the procedure, and actually pulled the tube out, so the procedure was terminated. Approximately 25 cc of dark brown fluid was aspirated prior to this. This was after he received a dose of Versed 2 mg IV and fentanyl 50 mcg IV. IR was not willing to attempt a repeat at this procedure, so it was requested he be transferred to our hospital to see if our IR services could be successful with this procedure. Patient received IV Zosyn while admitted. He has a history of heavy alcohol use in the past but at bedside states he has not been drinking much for the past several weeks, just a beer here and there when mowing the yard. He now arrives to our hospital and appears stable but does look confused and delirious which may be related to underlying dementia hospital psychosis however will continue monitoring for possible alcohol withdrawal syndrome as well and sepsis. ASSESSMENT/PLAN: PRINCIPLE PROBLEM: 1. Acute cholecystitis/acute pancreatitis - IV Zosyn - IV fluids IV Zofran as needed nausea or vomiting - IV morphine as needed pain - Clear liquid diet unless he develops nausea and vomiting - N.p.o. at midnight for possible IR procedure tomorrow - Surgical consult - Repeat a CMP, CBC and lipase in morning ADDITIONAL PROBLEMS: 2. Alcohol abuse -Patient drinks maybe 1 beer here and there now -Nursing to perform: -CIWA SCALE q2-4 hrs as patient has the potential to develop alcohol withdrawal symptoms and/ or seizures that could result in injuries, aspiration or hypoxic brain damage and -INITIATE: -Phenobarbital 64.8 mg po or IV tid prn persistent withdrawal symptoms not controlled with the schedule Phenobarbital -Ativan IV prn any seizure activity or withdrawal symptoms not responding to Phenobarbital -Thiamine 100 mg IV or po daily -Folate acid 1 mg daily -Multivitamin 1 a day -Protonix 40 mg daily 3. Delirium - Possibly due to #2 however may also have underlying dementia - Delirium protocol in place - Haldol as needed agitation 4. Tobacco abuse -Patient smokes maybe 1/2 pack of cigarettes a day per at bedside -Provide smoking cessation couseling -Provide Nicotine patch if patient requests 5. Hypothyroidism - Continue home dose of levothyroxine 25 mcg daily 6. COPD - Patient on a [place] at home - DuoNebs 3 times daily - Albuterol as needed breakthrough shortness of breath or wheezing. 7. Hyponatremia - Sodium 130 - Hydrate overnight - Recheck a BMP in a.m. 8. DVT ASSESSMENT -Encourage early and ongoing ambulation/mobility as appropriate and tolerated by patient [employer] DIET: Clear liquid diet NPO @ MN IVF'S NS @150cc/hr DEVICES PRESENT ON ADMISSION: Peripheral IV Telemetry BMI: Body mass index is 21.73 kg/m?. 18.5-24.9 (Normal weight) ISOLATION OR OTHER SPECIAL CONSIDERATIONS: Does not need Isolation. ACTIVITY AT HOME: Independent Lives with spouse or a significant other ACTIVITY ON ADMISSION: Up as tolerated WOUNDS/PRESSURE INJURIES POA: None DISPOSITION AT DISCHARGE: TBD CODE STATUS: FULL C (more content not included)... Normal [facility] Hematocrit Auto (Bld) [Volum e fraction]Ordered By: Yakov Samano on 11-20-2024 Hematocrit (Bld) [Volume fraction] 39.7 % Low 40-54 [facility] Hemoglobin measurementOrdere d By: Kevin Genao on 11-20-2024 Hemoglobin (Bld) [Mass/Vol] 14.0 g/dL Normal 13.0-16.5 [facility] Comment on above: Performed By: #### L 501.4021, L100.0100, L500.2500 #### [facility] [address] [facility] [address] Immature granulocytes/100 WB C Auto (Bld)Ordered By: Yakov Samano on 11-20-2024 Immature granulocytes/100 WBC (Bld) 0.400 % 0.0-0.9 [facility] Comment on above: IG% - Immature Granu locytes (promyelocytes, myelocytes and metamyelocytes) > 1% indicates that a LEFT SHIFT is Present. L499.0043on 11-20-2024 Trop T High Sen 11 ng/L Normal <=22 [facility] Comment on above: Performed By: #### L 500.3400, L501.2450 #### [facility] [address] [place], [address] Laboratory - Chemistry and C hemistry - challengeOrdered By: Yakov Samano on 11-20-2024 AST [Catalytic activity/Vol] 275 U/L High <38 [facility] Comment on above: Hemolysis present, R esults could be affected. Lipaseon 11-20-2024 Lipase [Catalytic activity/Vol] 1128 U/L High 13-75 [facility] Comment on above: Result Comment: Dread phillip note: LIPASE revised reference range effective 22. New Lipase methodology. Expected to produce lower values than the previous assay method. NEW Reference Range: 13 - 75 U/L Performed By: #### L 501.4021, L100.0100, L500.2500 #### [facility] [address] [place], [address] Lipase measurementOrdered By : Yakov Samano on 11-20-2024 Lipase [Catalytic activity/Vol] 1128 U/L High 13-75 [facility] Comment on above: Please note:LIPASE r evised reference range effective 22. New Lipase methodology. Expected to produce lower values than the previous assay method. NEW Reference Range: 13 - 75 U/L MCV (mean corpuscular volume ) determinationOrdered By: Yakov Samano on 11-20-2024 MCV (RBC) [Entitic vol] 89.4 fL 80-94 [facility] Mean corpuscular hemoglobin (MCH) determinationOrdered By: Yakov Samano on 11-20-2024 MCH (RBC) [Entitic mass] 31.5 pg 27.0-32.0 [facility] Mean corpuscular hemoglobin concentration (MCHC) determinationOrdered By: Yakov Samano on 11-20-2024 MCHC (RBC) [Mass/Vol] 35.3 g/dL 32-36 [facility] Mean platelet volume determi nationOrdered By: Yakov Samano on 11-20-2024 Platelet mean volume (Bld) [Entitic vol] 10.2 fL 6.2-12.0 [facility] Monocyte percentageOrdered B y: Yakov Samano on 11-20-2024 Monocytes/100 WBC (Bld) 6.3 % 0-[address] [facility] Neutrophil percentageOrdered By: Yakov Samano on 11-20-2024 Neutrophils/100 WBC (Bld) 88.8 % High 47-70 [facility] Nucleated red blood cell per centageOrdered By: Kevin Genao on 11-20-2024 Nucleated RBC/100 WBC (Bld) [Ratio] 0 % 0-5 [facility] Partial Thromboplast Timeon 11-20-2024 aPTT Coag (Bld) [Time] 23.0 s Low 24.1-36.2 [facility] Comment on above: Performed By: #### L 500.3400, L501.2450 #### [facility] [address] [place], [place], [id number] Platelet countOrdered By: Kassandra Samano on 11-20-2024 Platelets (Bld) [#/Vol] 173 10*3/uL 150-450 [facility] Potassium measurement (mass/ volume)Ordered By: Yakov Samano on 11-20-2024 Potassium (Unsp spec) [Mass/Vol] 4.4 mmol/L 3.3-5.1 [facility] Comment on above: Hemolysis present, R esults could be affected. Prothrombin Time w/INRon INR Coag (PPP) [Relative time] 1.0 {INR} Normal [facility] Comment on above: Performed By: #### L 500.3400, L501.2450 #### [facility] [address] [place], [address] Prothrombin timeOrdered By: Yakov Samano on 11-20-2024 PT Coag (PPP) [Time] 13.2 s Normal 11.7-14.9 [facility] Comment on above: Performed By: #### L 500.3400, L501.2450 #### [facility] [address] [place], [place], [id number] RBC Auto (Bld) [#/Vol]Ordere d By: Yakov Samano on 11-20-2024 RBC (Bld) [#/Vol] 4.44 10*6/uL Low 4.6-6.2 [facility] Serum creatinine measurement (mass/volume)Ordered By: Yakov Samano on 11-20-2024 Creatinine [Mass/Vol] 0.86 mg/dL 0.70-1.20 [facility] Serum globulin measurementOr dered By: Yakov Samano on 11-20-2024 Globulin (S) [Mass/Vol] 2.5 g/dL 2.2-4.2 [facility] Serum glucose measurement (m ass/volume)Ordered By: Yakov Samano on 11-20-2024 Glucose [Mass/Vol] 117 mg/dL High 70-99 [facility] Serum or plasma alanine gibson otransferase (ALT) measurementOrdered By: Yakov Samano on 11-20-2024 ALT [Catalytic activity/Vol] 215 U/L High <47 [facility] Serum or plasma albumin zac urement (mass/volume)Ordered By: Yakov Samano on 11-20-2024 Albumin [Mass/Vol] 4.0 g/dL 3.4-4.8 [facility] Serum or plasma albumin/glob ulin mass ratioOrdered By: Yakov Samano on 11-20-2024 Albumin/Globulin [Mass ratio] 1.6 {ratio} 0.9-2.4 [facility] Serum or plasma alkaline rafa sphatase measurementOrdered By: Yakov Samano on 11-20-2024 ALP [Catalytic activity/Vol] 111 U/L 40-129 [facility] Serum or plasma calcium zac urement (mass/volume)Ordered By: Yakov Samano on 11-20-2024 Calcium [Mass/Vol] 8.6 mg/dL 7.6-11.0 [facility] Serum or plasma urea nitroge n measurement (mass/volume)Ordered By: Yakov Samano on 11-20-2024 Urea nitrogen [Mass/Vol] 15 mg/dL 4-19 [facility] Sodium levelOrdered By: Aristeo Genao on 11-20-2024 Sodium [Moles/Vol] 130 mmol/L Low 133-145 [facility] Comment on above: Performed By: #### L 501.4021, L100.0100, L500.2500 #### [facility] [address] [facility] [address] [place], [place], [address] Total proteinOrdered By: Wilver Samano on 11-20-2024 Protein [Mass/Vol] 6.5 g/dL 5.9-8.4 [facility] Troponin T.cardiac [Mass/vol ume] in Serum or Plasma by High sensitivity methodOrdered By: Kevin Genao on 11-20-2024 Troponin T.cardiac High sensitivity method [Mass/Vol] 11 ng/L <22 [facility] White blood cell (WBC) count Ordered By: Yakov Samano on 11-20-2024 WBC (Bld) [#/Vol] 16.7 10*3/uL High 4.4-11.0 [facility] 12 Lead EKGon 11-19-2024 12 Lead EKG [facility] Cardiovascular Services [address] [place] [address] 12 Lead EKG 11/19/242005 MR#: [id number] Acct: [id number] Name: FAHAD KIRK Rep #: [id number] : 1955 69 From: Roberto Serrano MD Attending Dr: Dr. Yakov Samano MD Status: ADM IN Ordering Dr: Kevin Genao DO Date: 11/19/24 Location: [facility] Sex: M C Admitted: 11/19/24 Test Reason : CP Blood Pressure : */* mmHG Vent. Rate : 56 BPM Atrial Rate : 56 BPM P-R Int : 136 ms QRS Dur : 90 ms QT Int : 492 ms P-R-T Axes : 73 67 75 degrees QTcB Int : 474 ms Sinus bradycardia Otherwise normal ECG Confirmed by Roberto Serrano ([id number]), manager editorial MARISA CASTELLANOS ([id number]) on 11/20/2024 1:08:13 PM Referred By: TA Confirmed By: Roberto Serrano 11/20/24 1308 Date Roberto Serrano MD CC: Dr. Yakov Samaon MD; Dr. Gosia Delaney MD; Dr. Kevin Genao DO Signed Normal [facility] Abdomen Limitedon 11-19-2024 Abdomen Limited [facility] Imaging Services [address] [place] [address] Abdomen Limited MR#: [id number] Acct: [id number] Name: FAHAD KIRK Rep #: [id number] : 1955 M 69 From: Tano Chan MD PCP: Dr. Gosia Delaney MD Status: ADM IN Study: Abdomen Limited Date of Exam: 11/19/24 Exam# [id number] Ordering Dr: Kevin Genao DO PROCEDURE: ABDOMEN LIMITED 11/19/2024 REASON FOR EXAM: ?ACUTE CHOLECYSTITIS TECHNIQUE: ABDOMEN LIMITED COMPARISON: CT 11/19/2024 FINDINGS: Gallbladder is distended with pericholecystic fluid, gallbladder wall thickening, cholelithiasis. CBD measures 7 mm. The liver, and visible pancreas are unremarkable. The right kidney measures 9 cm in length without hydronephrosis. US/Abdomen Limited IMPRESSION: Abnormal gallbladder, most consistent with cholecystitis. Reading Location: [place] [address] CC: Dr. Gosia Delaney MD; Dr. Kevin Genao DO [employer] Instructor: Signed Normal [facility] Abdomen/Pelvis W IV Cont ONL Yon 11-19-2024 Abdomen/Pelvis W IV Cont ONLY [facility] Imaging Services [address] [place], [place] [address] Abdomen/Pelvis W IV Cont ONLY MR#: [id number] Acct: [id number] Name: FAHAD KIRK Rep #: [id number] : 1955 M 69 From: Antony Whitehead MD PCP: Dr. Gosia Delaney MD Status: [facility] ER Study: Abdomen/Pelvis W IV Cont ONLY Date of Exam: Exam# [id number] Ordering Dr: Kevin Genao DO PROCEDURE: ABDOMEN/PELVIS W IV CONT [...] Of note, there is a small amount of free fluid adjacent to the liver and surrounding the gallbladder. Recommend Surgical consultation +/- ultrasound. Reading Location: [id number] CC: Dr. Gosia Delaney MD; Dr. Kevin Genao DO [employer] Instructor: Signed Normal [facility] Absolute lymphocyte countOrd ered By: Kevin Genao on 11-19-2024 Lymphocytes Auto (Unsp spec) [#/Vol] 1.45 10*3/uL 0.83-4.51 [facility] Absolute neutrophil countOrd ered By: Kevin Genao on 11-19-2024 Neutrophils (Bld) [#/Vol] 14.0 10*3/uL High 2.0-7.7 [facility] Activated partial thrombopla stin time (aPTT) in platelet poor plasma by coagulation aOrdered By: Yakov Samano on 11-19-2024 aPTT Coag (PPP) [Time] 23.0 s Low 24.1-36.2 [facility] Anion gap in Serum or Plasma Ordered By: Kevin Genao on 11-19-2024 Anion gap [Moles/Vol] 15 mmol/L 5-15 [facility] Automated blood erythrocyte countOrdered By: Kevin Genao on 11-19-2024 RBC (Bld) [#/Vol] 4.43 10*6/uL Low 4.6-6.2 [facility] Comment on above: Performed By: #### L 501.4021, L100.0100, L500.2500 #### [facility] [address] [place], [place], [id number] Automated blood hematocrit ( percentage)Ordered By: Kevin Genao on 11-19-2024 Hematocrit (Bld) [Volume fraction] 39.2 % Low 40-54 [facility] Comment on above: Performed By: #### L 501.4021, L100.0100, L500.2500 #### [facility] [address] [place], [address] Automated lymphocyte count a s percentage of total leukocytesOrdered By: Kevin Genao on 11-19-2024 Lymphocytes/100 WBC Auto (Unsp spec) 8.8 % Low 19-41 [facility] BUN/creatinine ratioOrdered By: Kevin Genao on 11-19-2024 Urea nitrogen/Creatinine [Mass ratio] 17.7 mg/mg 10- [facility] Basic Metabolic Profile (BMP )on 11-19-2024 BUN/CRE 17.7 RATIO Normal 10-20 [facility] Comment on above: Performed By: #### L 501.4021, L100.0100, L500.2500 #### [facility] [address] [place], [address] ECRCL 54.76 ml/min Normal 50-250 [facility] Comment on above: Performed By: #### L 501.4021, L100.0100, L500.2500 #### [facility] [address] [place], [address] GAP 15 Normal 5-15 [facility] Comment on above: Performed By: #### L 501.4021, L100.0100, L500.2500 #### [facility] [address] [place], [address] Potassium [Moles/Vol] 3.7 mmol/L Normal 3.3-5.1 [facility] Comment on above: Performed By: #### L 501.4021, L100.0100, L500.2500 #### [facility] [address] [place], [address] Bilirubin directOrdered By: Kevin Genao on 11-19-2024 Bilirubin.direct [Mass/Vol] 0.76 mg/dL High 0.00-0.30 [facility] Comment on above: Performed By: #### L 500.3400, L501.2450 #### [facility] [address] [place], [address] Bilirubin, totalOrdered By: Kevin Genao on 11-19-2024 Bilirubin [Mass/Vol] 1.04 mg/dL Normal 0.00-1.30 [facility] Comment on above: Performed By: #### L 500.3400, L501.2450 #### [facility] [address] [place], [address] CBC W/Diff, Automatedon 11-07 Absolute Lymph 1.45 X10 3/uL Normal 0.83-4.51 [facility] Comment on above: Performed By: #### L 501.4021, L100.0100, L500.2500 #### [facility] [address] [place], [address] Absolute Neut 14.0 X10 3/uL High 2.0-7.7 [facility] Comment on above: Performed By: #### L 501.4021, L100.0100, L500.2500 #### [facility] [address] [place], [address] IG% 0.500 Normal 0.0-0.9 [facility] Comment on above: Result Comment: IG% - Immature Granulocytes (promyelocytes, myelocytes and metamyelocytes) > 1% indicates that a LEFT SHIFT is Present. Performed By: #### L 501.4021, L100.0100, L500.2500 #### [facility] [address] [place], [address] Lymphocytes/100 WBC (Bld) 8.8 % Low 19-41 [facility] Comment on above: Performed By: #### L 501.4021, L100.0100, L500.2500 #### [facility] [address] [place], [address] Nucleated RBC (Bld) [#/Vol] 0 10*3/uL Normal 0-5 [facility] Comment on above: Performed By: #### L 501.4021, L100.0100, L500.2500 #### [facility] [address] [place], [address] RDW SD 41.6 fl Normal 35.1-43.9 [facility] Comment on above: Performed By: #### L 501.4021, L100.0100, L500.2500 #### [facility] [address] [place], [address] Carbon dioxide, total [Moles /volume] in Central venous bloodOrdered By: Kevin Genao on 11-19-2024 CO2 [Moles/Vol] 22.0 mmol/L Normal 21.0-32.0 [facility] Comment on above: Performed By: #### L 501.4021, L100.0100, L500.2500 #### [facility] [address] [place], [address] Chest 1 View (Portable)on Chest 1 View (Portable) [facility] Imaging Services [address] [place] [address] Chest 1 View (Portable) MR#: [id number] Acct: [id number] Name: FAHAD KIRK Rep #: [id number] : 1955 M 69 From: Antony Whitehead MD PCP: Dr. Gosia Delaney MD Status: PRE ER Study: Chest 1 View (Portable) Date of Exam: 11/19/24 Exam# [id number] Ordering Dr: Kevin Genao DO PROCEDURE: CHEST 1 VIEW (PORTABLE) [...] of an acute cardiopulmonary abnormality. Reading Location: [id number] CC: Dr. Gosia Delaney MD; Dr. Kevin Genao DO [employer] Instructor: Signed Normal [facility] Chloride assayOrdered By: Derian Genao on 11-19-2024 Chloride [Moles/Vol] 93 mmol/L Low 98-108 [facility] Comment on above: Performed By: #### L 501.4021, L100.0100, L500.2500 #### [facility] [address] [facility] [place], [address] Emergency Department Summary on 11-19-2024 Emergency Department Summary [facility] Medical Records Department [address] [place] [address] Emergency Department Summary 11/19/24 MR#: [id number] Acct: [id number] Name: FAHAD KIRK Rep #: [id number] : 1955 69 From: Kevin Genao DO PCP: Dr. Gosia Delaney MD Status:DIS IN Location: [address] History of Present Illness Chief Complaint: Chest Pain [facility] Medical History Alcohol abuse Alcoholism Carotid stenosis, bilateral Chest pain COPD (chronic obstructive pulmonary disease) Heart disease Herniated disc High cholesterol High triglycerides Hyperlipidemia Hypertension Liver disease Lung disease Shortness of breath Home Medications ???Medication ???Instructions ???Recorded ???Last Taken ???Type amlodipine 5 mg tablet 5 mg PO DAILY 03/30/17 Unknown His tory aspirin 81 mg chewable tablet 81 mg PO DAILY@0800 03/30/17 Unkno wn History levalbuterol tartrate 45 15 g IH DAILY PRN Wheezing 7 Unknown History mcg/actuation aerosol inhaler levocetirizine 5 mg tablet 5 mg PO DAILY 03/30/17 Unknown His tory potassium citrate 10 mEq (1,080 5 meq PO DAILY 03/30/17 Unknown Hi story mg) tablet,extended release rosuvastatin 20 mg tablet 20 mg PO DAILY 03/30/17 Unknown Hi story umeclidinium 62.5 mcg/actuation 62.5 mcg IH DAILY PRN Wheezing Unknown History blister powder for inhalation calcium 500 mg (as carbonate)-D3 1 tab PO BID 09/11/20 Unknown Hist ory 2.5 mcg (100 unit) chewable tablet levothyroxine 25 mcg tablet 25 mcg PO DAILY 09/16/20 Unknown H istory thiamine mononitrate (vit B1) 100 100 mg PO DAILY PRN 09/16/20 Unkn own History mg tablet metoprolol succinate 50 mg 50 mg PO DAILY 04/07/21 Unknown Hi story tablet,extended release 24 hr ascorbate calcium (vitamin C) 500 500 mg PO DAILY 08/05/21 Unknown History mg tablet omega 5-bfs-qvp-fish oil 300 1 cap PO BID 02/02/22 Unknown Hist ory mg-1,000 mg capsule,delayed release (Fish Oil) Allergy/AdvReac Type Severity Reaction Status Date / Time fentanyl AdvReac Severe confusion Verified 11/20/24 19:34 midazolam (From Versed) AdvReac Severe confusion Verified 11/20/24 19:34 Family History Brother Heart disease Myocardial infarction [...] gym frequency: 3-4 times per week angie/scientology: Pres[employer]eterian seatbelt use: always EXAM Physical Exam Const Vital Signs: 11/19/24 19:54 11/19/24 20:00 11/19/24 [...] Pulse Ox 96 97 Oxygen Delivery Method Physical Exam Const Vital Signs: 11/19/24 19:54 11/19/24 20:00 11/19/24 20:08 Temperature 98.0 F Temperature Source Oral Pulse Rate 55 L 56 L Respiratory Rate 14 15 Blood Pressure 157/81 H Blood Pressure Mean 106 Pulse Ox 98 97 Oxygen Delivery Method Room Air Room Air 11/19/24 20:15 11/19/24 20:30 11/19/24 20:45 Temperature Temperature (more content not included)... Normal [facility] Eosinophil percentageOrdered By: Kevin Genao on 11-19-2024 Eosinophils/100 WBC (Bld) 1.3 % Normal 0-5 [facility] Comment on above: Performed By: #### L 501.4021, L100.0100, L500.2500 #### [facility] [address] [place], [address] Erythrocyte distribution wid th ratioOrdered By: Kevin Genao on 11-19-2024 Erythrocyte distribution width (RBC) [Ratio] 12.8 % Normal 11.6-14.6 [facility] Comment on above: Performed By: #### L 501.4021, L100.0100, L500.2500 #### [facility] [address] [place], [address] Erythrocyte distribution wid th standard deviationOrdered By: Kevin Genao on 11-19-2024 Erythrocyte distribution width (RBC) [Ratio] 41.6 fl 35.1-43.9 [facility] Glomerular filtration rate ( GFR) estimation/1.73 sq m using serum, plasma, or whole bOrdered By: Kevin Genao on 11-19-2024 GFR/1.73 sq M.predicted among non-blacks MDRD (S/P/Bld) [Vol rate/Area] 83 mL/min/{1.73_m2} Normal >60 [facility] Comment on above: mL/min/1.73m2 CKD-EP I Creatinine Equation (2020) Result Comment: mL/m in/1.73m2 CKD-EPI Creatinine Equation (2020) Performed By: #### L 501.4021, L100.0100, L500.2500 #### [facility] [address] [place], [address] H AND P Exam - Surgicalon H&P Exam - Surgical [facility] Medical Records Department [address] [place] [address] H P Exam - Surgical 11/19/24 2252 MR#: [id number] Acct: [id number] Name: FAHAD IKRK Rep #: [id number] : 1955 69 From: Yakov Samano MD PCP: Dr. Gosia Delaney MD Status:REG ER Location: ED HPI - General HPI Narrative FAHAD KIRK, is a 69 M who presents with abdominal pain. Patient reports the pain started yesterday. He has been feeling unwell for a few days. He currently denies any nausea or vomiting but he did vomit once today. [facility] Medical History Alcohol abuse Alcoholism Carotid stenosis, bilateral Chest pain COPD (chronic obstructive pulmonary disease) Heart disease Herniated disc High cholesterol High triglycerides Hyperlipidemia Hypertension Liver disease Lung disease Shortness of breath Home Medications ???Medication ???Instructions ???Recorded ???Last Taken ???Type amlodipine 5 mg tablet 5 mg PO DAILY 03/30/17 Unknown His tory aspirin 81 mg chewable tablet 81 mg PO DAILY@0800 03/30/17 Unkno wn History levalbuterol tartrate 45 15 g IH DAILY PRN Wheezing 7 Unknown History mcg/actuation aerosol inhaler levocetirizine 5 mg tablet 5 mg PO DAILY 03/30/17 Unknown His tory potassium citrate 10 mEq (1,080 5 meq PO DAILY 03/30/17 Unknown Hi story mg) tablet,extended release rosuvastatin 20 mg tablet 20 mg PO DAILY 03/30/17 Unknown Hi story umeclidinium 62.5 mcg/actuation 62.5 mcg IH DAILY PRN Wheezing Unknown History blister powder for inhalation calcium 500 mg (as carbonate)-D3 1 tab PO BID 09/11/20 Unknown Hist ory 2.5 mcg (100 unit) chewable tablet levothyroxine 25 mcg tablet 25 mcg PO DAILY 09/16/20 Unknown H istory thiamine mononitrate (vit B1) 100 100 mg PO DAILY PRN 09/16/20 Unkn own History mg tablet metoprolol succinate 50 mg 50 mg PO DAILY 04/07/21 Unknown Hi story tablet,extended release 24 hr ascorbate calcium (vitamin C) 500 500 mg PO DAILY 08/05/21 Unknown History mg tablet omega 7-wko-slf-fish oil 300 1 cap PO BID 02/02/22 Unknown Hist ory mg-1,000 mg capsule,delayed release (Fish Oil) Allergy/AdvReac [...] gym frequency: 3-4 times per week angie/scientology: [employer] seatbelt use: always ROS Constitutional Constitutional: Denies [...] Temperature Temperature Source Pulse Rate 73 65 Res (more content not included)... Normal [facility] Immature granulocytes/100 WB C Auto (Bld)Ordered By: Kevin Genao on 11-19-2024 Immature granulocytes/100 WBC (Bld) 0.500 % 0.0-0.9 [facility] Comment on above: IG% - Immature Granu locytes (promyelocytes, myelocytes and metamyelocytes) > 1% indicates that a LEFT SHIFT is Present. International normalized rat io (INR) calculationOrdered By: Yakov Samano on 11-19-2024 INR Coag (Bld) [Relative time] 1.0 {INR} [facility] L499.0042on 11-19-2024 Trop T High Sen 10 ng/L Normal <=22 [facility] Comment on above: Performed By: #### L 500.3400, L501.2450 #### [facility] [address] [place], [address] L501.4021on 11-19-2024 Trop T High Sen 10 ng/L Normal <=22 [facility] Comment on above: Performed By: #### L 501.4021, L100.0100, L500.2500 #### [facility] [address] [place], [address] Lipase measurementOrdered By : Kevin Genao on 11-19-2024 Lipase [Catalytic activity/Vol] 2936 U/L High 13-75 [facility] Comment on above: Please note:LIPASE r evised reference range effective 22. New Lipase methodology. Expected to produce lower values than the previous assay method. NEW Reference Range: 13 - 75 U/L Result Comment: Dread phillip note: LIPASE revised reference range effective 22. New Lipase methodology. Expected to produce lower values than the previous assay method. NEW Reference Range: 13 - 75 U/L Performed By: #### L 500.3400, L501.2450 #### [facility] [address] [place], [address] Liver Profileon 11-19-2024 ALK PHOS 106 U/L Normal 40-129 [facility] Comment on above: Performed By: #### L 500.3400, L501.2450 #### [facility] [address] [place], [address] T PROT 6.7 g/dL Normal 5.9-8.4 [facility] Comment on above: Performed By: #### L 500.3400, L501.2450 #### [facility] [address] [place], [address] Liver ProfileOrdered By: Trice Genao on 11-19-2024 AST [Catalytic activity/Vol] 217 U/L High <=37 [facility] Comment on above: Performed By: #### L 500.3400, L501.2450 #### [facility] [address] [place], [address] MCV (mean corpuscular volume ) determinationOrdered By: Kevin Genao on 11-19-2024 MCV (RBC) [Entitic vol] 88.5 fL Normal 80-[address] [facility] Comment on above: Performed By: #### L 501.4021, L100.0100, L500.2500 #### [facility] [address] [place], [address] Mean corpuscular hemoglobin (MCH) determinationOrdered By: Kevin Genao on 11-19-2024 MCH (RBC) [Entitic mass] 31.6 pg Normal 27.0-32.0 [facility] Comment on above: Performed By: #### L 501.4021, L100.0100, L500.2500 #### [facility] [address] [place], [address] Mean corpuscular hemoglobin concentration (MCHC) determinationOrdered By: Kevin Genao on 11-19-2024 MCHC (RBC) [Mass/Vol] 35.7 g/dL Normal 32-36 [facility] Comment on above: Performed By: #### L 501.4021, L100.0100, L500.2500 #### [facility] [address] [place], [address] Mean platelet volume determi nationOrdered By: Kevin Genao on 11-19-2024 Platelet mean volume (Bld) [Entitic vol] 10.5 fL Normal 6.2-12.0 [facility] Comment on above: Performed By: #### L 501.4021, L100.0100, L500.2500 #### [facility] [address] [place], [address] Monocyte percentageOrdered B y: Kevin Genao on 11-19-2024 Monocytes/100 WBC (Bld) 4.3 % Normal 0-[address] [facility] Comment on above: Performed By: #### L 501.4021, L100.0100, L500.2500 #### [facility] [address] [place], [address] Neutrophil percentageOrdered By: Kevin Genao on 11-19-2024 Neutrophils/100 WBC (Bld) 84.9 % High 47-70 [facility] Comment on above: Performed By: #### L 501.4021, L100.0100, L500.2500 #### [facility] [address] [place], [address] Platelet countOrdered By: Derian Genao on 11-19-2024 Platelets (Bld) [#/Vol] 227 10*3/uL Normal 150-450 [facility] Comment on above: Performed By: #### L 501.4021, L100.0100, L500.2500 #### [facility] [address] [place], [address] Potassium measurement (mass/ volume)Ordered By: Kevni Genao on 11-19-2024 Potassium (Unsp spec) [Mass/Vol] 3.7 mmol/L 3.3-5.1 [facility] Serum creatinine measurement (mass/volume)Ordered By: Kevin Genao on 11-19-2024 Creatinine [Mass/Vol] 0.98 mg/dL Normal 0.70-1.20 [facility] Comment on above: Performed By: #### L 501.4021, L100.0100, L500.2500 #### [facility] [address] [place], [address] Serum globulin measurementOr dered By: Kevin Genao on 11-19-2024 Globulin (S) [Mass/Vol] 2.4 g/dL Normal 2.2-4.2 [facility] Comment on above: Performed By: #### L 500.3400, L501.2450 #### [facility] [address] [place], [address] Serum glucose measurement (m ass/volume)Ordered By: Kevin Genao on 11-19-2024 Glucose [Mass/Vol] 136 mg/dL High 70-99 [facility] Comment on above: Performed By: #### L 501.4021, L100.0100, L500.2500 #### [facility] [address] [place], [address] Serum or plasma alanine gibson otransferase (ALT) measurementOrdered By: Kevin Genao on 11-19-2024 ALT [Catalytic activity/Vol] 126 U/L High <=46 [facility] Comment on above: Performed By: #### L 500.3400, L501.2450 #### [facility] [address] [place], [address] Serum or plasma albumin zac urement (mass/volume)Ordered By: Kevin Genao on 11-19-2024 Albumin [Mass/Vol] 4.3 g/dL Normal 3.4-4.8 [facility] Comment on above: Performed By: #### L 500.3400, L501.2450 #### [facility] [address] [place], [address] Serum or plasma alkaline rafa sphatase measurementOrdered By: Kevin Genao on 11-19-2024 ALP [Catalytic activity/Vol] 106 U/L 40-129 [facility] Serum or plasma calcium zac urement (mass/volume)Ordered By: Kevin Genao on 11-19-2024 Calcium [Mass/Vol] 9.2 mg/dL Normal 7.6-11.0 [facility] Comment on above: Performed By: #### L 501.4021, L100.0100, L500.2500 #### [facility] [address] [place], [place], [address] Serum or plasma urea nitroge n measurement (mass/volume)Ordered By: Kevin Genao on 11-19-2024 Urea nitrogen [Mass/Vol] 17 mg/dL Normal 4-19 [facility] Comment on above: Performed By: #### L 501.4021, L100.0100, L500.2500 #### [facility] [address] [place], [address] Total proteinOrdered By: Trice Genao on 11-19-2024 Protein [Mass/Vol] 6.7 g/dL 5.9-8.4 [facility] Troponin T.cardiac [Mass/vol ume] in Serum or Plasma by High sensitivity methodOrdered By: Kevin Genao on 11-19-2024 Troponin T.cardiac High sensitivity method [Mass/Vol] 10 ng/L <22 [facility] White blood cell (WBC) count Ordered By: Kevin Genao on 11-19-2024 WBC (Bld) [#/Vol] 16.5 10*3/uL High 4.4-11.0 [facility] Comment on above: Performed By: #### L 501.4021, L100.0100, L500.2500 #### [facility] [address] [place], [place], [address] Neurology Visit Reporton Neurology Visit Report [facility] [address], [address] [place] [address] OFFICE VISIT Date of Service: 11/08/24 MR#: [id number] Acct: [id number] Name: FAHAD KIRK Rep #: [id number] : 1955 Provider: Dr. Tuan vo MD Age/Sex: 69/M [place] [facility] [place]: Signed HPI [facility] Chief Complaint: Details: Interim History: Fahad [...] common c (more content not included)... Normal [facility] Urine Sodiumon 07-12-2024 Sodium (U) [Moles/Vol] 130 mmol/L Normal Not Establ. [facility] Comment on above: Performed By: #### L 500.9054, L501.2450 #### [facility] [address] [place], [address] Urine sodium measurement (mo les/volume)Ordered By: Tina Sutherland on 07-12-2024 Sodium (U) [Moles/Vol] 130 mmol/L Not Establ. [facility] Absolute neutrophil countOrd ered By: Gosia Delaney on 06-21-2024 Neutrophils (Bld) [#/Vol] 5.6 10*3/uL 2.0-7.7 [facility] Albumin to globulin ratioOrd ered By: Gosia Delaney on 06-21-2024 Albumin/Globulin [Mass ratio] 1.1 {ratio} 0.9-2.4 [facility] Basophil percentageOrdered B y: Gosia Delaney on 06-21-2024 Basophils/100 WBC (Bld) 0.5 % 0-[address] [facility] Bilirubin, totalOrdered By: Gosia Delaney on 06-21-2024 Bilirubin [Mass/Vol] 0.60 mg/dL 0.20-1.00 [facility] Comment on above: For patients on eltr ombopag therapy, use of Dimension [place] TBIL is not recommended. Blood urea nitrogen (BUN)/cr eatinine ratioOrdered By: Gosia Delaney on 06-21-2024 Urea nitrogen/Creatinine [Mass ratio] 12.2 mg/mg 10-20 [facility] CBC W/Diff, Automatedon 06-10 Absolute Lymph 2.18 X10 3/uL Normal 0.83-4.51 [facility] Comment on above: Order Comment: Order Date: 06/20/24Order Info: 0184-1 - CBCD Performed By: #### L 500.3400, L501.2450 #### [facility] [address] [place], [address] Absolute Neut 5.6 X10 3/uL Normal 2.0-7.7 [facility] Comment on above: Order Comment: Order Date: 06/20/24Order Info: 0184-1 - CBCD Performed By: #### L 500.3400, L501.2450 #### [facility] [address] [place], [address] Basophils/100 WBC (Bld) 0.5 % Normal 0-[address] [facility] Comment on above: Order Comment: Order Date: 06/20/24Order Info: 0184-1 - CBCD Performed By: #### L 500.3400, L501.2450 #### [facility] [address] [place], [address] Eosinophils/100 WBC (Bld) 2.6 % Normal 0-5 [facility] Comment on above: Order Comment: Order Date: 06/20/24Order Info: 018- - CBCD Performed By: #### L 500.3400, L501.2450 #### [facility] [address] [place], [address] Erythrocyte distribution width (RBC) [Ratio] 13.2 % Normal 11.6-14.6 [facility] Comment on above: Order Comment: Order Date: 06/20/24Order Info: 018- - CBCD Performed By: #### L 500.3400, L501.2450 #### [facility] [address] [place], [address] Hematocrit (Bld) [Volume fraction] 43.8 % Normal 40-54 [facility] Comment on above: Order Comment: Order Date: 06/20/24Order Info: 0184-1 - CBCD Performed By: #### L 500.3400, L501.2450 #### [facility] [address] [place], [address] Hemoglobin (Bld) [Mass/Vol] 14.9 g/dL Normal 13.0-16.5 [facility] Comment on above: Order Comment: Order Date: 06/20/24Order Info: 0184-1 - CBCD Performed By: #### L 500.3400, L501.2450 #### [facility] [address] [place], [address] IG% 0.300 Normal 0.0-0.9 [facility] Comment on above: Order Comment: Order Date: 06/20/24Order Info: 018- - CBCD Result Comment: IG% - Immature Granulocytes (promyelocytes, myelocytes and metamyelocytes) > 1% indicates that a LEFT SHIFT is Present. Performed By: #### L 500.3400, L501.2450 #### [facility] [address] [place], [address] Lymphocytes/100 WBC (Bld) 24.9 % Normal 19-41 [facility] Comment on above: Order Comment: Order Date: 06/20/24Order Info: 018- - CBCD Performed By: #### L 500.3400, L501.2450 #### [facility] [address] [place], [address] MCH (RBC) [Entitic mass] 31.3 pg Normal 27.0-32.0 [facility] Comment on above: Order Comment: Order Date: 06/20/24Order Info: 018- - CBCD Performed By: #### L 500.3400, L501.2450 #### [facility] [address] [place], [address] MCHC (RBC) [Mass/Vol] 34.0 g/dL Normal 32-36 [facility] Comment on above: Order Comment: Order Date: 06/20/24Order Info: 018- - CBCD Performed By: #### L 500.3400, L501.2450 #### [facility] [address] [place], [address] MCV (RBC) [Entitic vol] 92.0 fL Normal 80-[address] [facility] Comment on above: Order Comment: Order Date: 06/20/24Order Info: 018- - CBCD Performed By: #### L 500.3400, L501.2450 #### [facility] [address] [place], [address] Monocytes/100 WBC (Bld) 7.9 % Normal 0-[address] [facility] Comment on above: Order Comment: Order Date: 06/20/24Order Info: 0184-1 - CBCD Performed By: #### L 500.3400, L501.2450 #### [facility] [address] [place], [address] Neutrophils/100 WBC (Bld) 63.8 % Normal 47-70 [facility] Comment on above: Order Comment: Order Date: 06/20/24Order Info: 018- - CBCD Performed By: #### L 500.3400, L501.2450 #### [facility] [address] [place], [address] Nucleated RBC (Bld) [#/Vol] 0 10*3/uL Normal 0-5 [facility] Comment on above: Order Comment: Order Date: 06/20/24Order Info: 018- - CBCD Performed By: #### L 500.3400, L501.2450 #### [facility] [address] [place], [address] Platelet mean volume (Bld) [Entitic vol] 11.0 fL Normal 6.2-12.0 [facility] Comment on above: Order Comment: Order Date: 06/20/24Order Info: 018- - CBCD Performed By: #### L 500.3400, L501.2450 #### [facility] [address] [place], [address] Platelets (Bld) [#/Vol] 245 10*3/uL Normal 150-450 [facility] Comment on above: Order Comment: Order Date: 06/20/24Order Info: 0184- - CBCD Performed By: #### L 500.3400, L501.2450 #### [facility] [address] [place], [address] RBC (Bld) [#/Vol] 4.76 10*6/uL Normal 4.6-6.2 [facility] Comment on above: Order Comment: Order Date: 06/20/24Order Info: 018- - CBCD Performed By: #### L 500.3400, L501.2450 #### [facility] [address] [place], [address] RDW SD 45.3 fl High 35.1-43.9 [facility] Comment on above: Order Comment: Order Date: 06/20/24Order Info: 018- - CBCD Performed By: #### L 500.3400, L501.2450 #### [facility] [address] [place], [address] WBC (Bld) [#/Vol] 8.8 10*3/uL Normal 4.4-11.0 [facility] Comment on above: Order Comment: Order Date: 06/20/24Order Info: 018- - CBCD Performed By: #### L 500.3400, L501.2450 #### [facility] [address] [place], [address] Carbon dioxide measurementOr dered By: Gosia Delaney on 06-21-2024 CO2 [Moles/Vol] 27.0 mmol/L 21.0-32.0 [facility] Chloride measurementOrdered By: Gosia Delaney on 06-21-2024 Chloride [Moles/Vol] 97 mmol/L Low 98-107 [facility] Comprehensive Metabolic Prof ilon 06-21-2024 Albumin [Mass/Vol] 4.1 g/dL Normal 3.2-5.0 [facility] Comment on above: Order Comment: Order Date: 06/20/24Order Info: 0786-1 - CMPOrder Info: [id number] - MGOrder Info: 3016-3 - TSH Performed By: #### L 501.4021, L100.0100, L500.2500 #### [facility] [address] [place], [address] Albumin/Globulin [Mass ratio] 1.1 {ratio} Normal 0.9-2.4 [facility] Comment on above: Order Comment: Order Date: 06/20/24Order Info: 0786-1 - CMPOrder Info: [id number] - MGOrder Info: [id number] - TSH Performed By: #### L 501.4021, L100.0100, L500.2500 #### [facility] [address] [place], [address] ALK P 74 U/L Normal 45-117 [facility] Comment on above: Order Comment: Order Date: 06/20/24Order Info: 86-1 - CMPOrder Info: [id number] - MGOrder Info: 3016-3 - TSH Performed By: #### L 501.4021, L100.0100, L500.2500 #### [facility] [address] [place], [address] ALT [Catalytic activity/Vol] 27 U/L Normal 16-61 [facility] Comment on above: Order Comment: Order Date: 06/20/24Order Info: 86-1 - CMPOrder Info: [id number] - MGOrder Info: 3016-3 - TSH Performed By: #### L 501.4021, L100.0100, L500.2500 #### [facility] [address] [place], [address] AST [Catalytic activity/Vol] 21 U/L Normal 15-37 [facility] Comment on above: Order Comment: Order Date: 06/20/24Order Info: 0786-1 - CMPOrder Info: [id number] - MGOrder Info: 3016-3 - TSH Performed By: #### L 501.4021, L100.0100, L500.2500 #### [facility] [address] [place], [address] Bilirubin [Mass/Vol] 0.60 mg/dL Normal 0.20-1.00 [facility] Comment on above: Order Comment: Order Date: 06/20/24Order Info: 0786-1 - CMPOrder Info: [id number] - MGOrder Info: 3016-3 - TSH Result Comment: For patients on eltrombopag therapy, use of Dimension [place] TBIL is not recommended. Performed By: #### L 501.4021, L100.0100, L500.2500 #### [facility] [address] [place], [address] BUN/CRE 12.2 RATIO Normal 10-20 [facility] Comment on above: Order Comment: Order Date: 06/20/24Order Info: 0786-1 - CMPOrder Info: [id number] - MGOrder Info: 3016-3 - TSH Performed By: #### L 501.4021, L100.0100, L500.2500 #### [facility] [address] [place], [address] CA,Total 9.3 mg/dL Normal 8.5-10.1 [facility] Comment on above: Order Comment: Order Date: 06/20/24Order Info: 0786-1 - CMPOrder Info: [id number] - MGOrder Info: 3016-3 - TSH Performed By: #### L 501.4021, L100.0100, L500.2500 #### [facility] [address] [place], [address] Chloride [Moles/Vol] 97 mmol/L Low 98-107 [facility] Comment on above: Order Comment: Order Date: 06/20/24Order Info: 0786-1 - CMPOrder Info: [id number] - MGOrder Info: 3016-3 - TSH Performed By: #### L 501.4021, L100.0100, L500.2500 #### [facility] [address] [place], [address] CO2 [Moles/Vol] 27.0 mmol/L Normal 21.0-32.0 [facility] Comment on above: Order Comment: Order Date: 06/20/24Order Info: 0786-1 - CMPOrder Info: [id number] - MGOrder Info: 3 - TSH Performed By: #### L 501.4021, L100.0100, L500.2500 #### [facility] [address] [place], [address] Creatinine [Mass/Vol] 1.23 mg/dL Normal 0.70-1.30 [facility] Comment on above: Order Comment: Order Date: 06/20/24Order Info: 0786-1 - CMPOrder Info: [id number] - MGOrder Info: [id number] - TSH Result Comment: The validity of the calculated GFR GFRAA in patients over 70 years has not been determined. Clinical correlation is essential. Performed By: #### L 501.4021, L100.0100, L500.2500 #### [facility] [address] [place], [address] EST GFR - AA 75 mL/min Normal >60 [facility] Comment on above: Order Comment: Order Date: 06/20/24Order Info: 0786-1 - CMPOrder Info: [id number] - MGOrder Info: [id number] - TSH Result Comment: Afri can Lebanese GFR Calc Performed By: #### L 501.4021, L100.0100, L500.2500 #### [facility] [address] [place], [address] GAP 8 Normal 5-15 [facility] Comment on above: Order Comment: Order Date: 06/20/24Order Info: 0786-1 - CMPOrder Info: [id number] - MGOrder Info: 3016-3 - TSH Performed By: #### L 501.4021, L100.0100, L500.2500 #### [facility] [address] [place], [address] GFR/1.73 sq M.predicted among non-blacks MDRD (S/P/Bld) [Vol rate/Area] 62 mL/min/{1.73_m2} Normal >60 [facility] Comment on above: Order Comment: Order Date: 06/20/24Order Info: 785-1 - CMPOrder Info: - MGOrder Info: [id number] - TSH Result Comment: Non- GFR Calc Performed By: #### L 501.4021, L100.0100, L500.2500 #### [facility] [address] [place], [address] Globulin (S) [Mass/Vol] 3.6 g/dL Normal 2.2-4.2 [facility] Comment on above: Order Comment: Order Date: 06/20/24Order Info: 785-1 - CMPOrder Info: - MGOrder Info: 3 - TSH Performed By: #### L 501.4021, L100.0100, L500.2500 #### [facility] [address] [place], [address] Glucose [Mass/Vol] 95 mg/dL Normal 74-106 [facility] Comment on above: Order Comment: Order Date: 06/20/24Order Info: 785-1 - CMPOrder Info: - MGOrder Info: [id number] - TSH Performed By: #### L 501.4021, L100.0100, L500.2500 #### [facility] [address] [place], [address] Potassium [Moles/Vol] 4.3 mmol/L Normal 3.5-5.1 [facility] Comment on above: Order Comment: Order Date: 06/20/24Order Info: 785-1 - CMPOrder Info: - MGOrder Info: [id number]- - TSH Performed By: #### L 501.4021, L100.0100, L500.2500 #### [facility] [address] [place], [address] Sodium [Moles/Vol] 132 mmol/L Low 136-145 [facility] Comment on above: Order Comment: Order Date: 06/20/24Order Info: 0786-1 - CMPOrder Info: [id number] - MGOrder Info: 3016-3 - TSH Performed By: #### L 501.4021, L100.0100, L500.2500 #### [facility] [address] [place], [address] T PROT 7.7 g/dL Normal 6.4-8.2 [facility] Comment on above: Order Comment: Order Date: 06/20/24Order Info: 0786-1 - CMPOrder Info: [id number] - MGOrder Info: [id number] - TSH Performed By: #### L 501.4021, L100.0100, L500.2500 #### [facility] [address] [place], [address] Urea nitrogen [Mass/Vol] 15 mg/dL Normal 7-18 [facility] Comment on above: Order Comment: Order Date: 06/20/24Order Info: [id number] - CMPOrder Info: [id number] - MGOrder Info: 6-3 - TSH Performed By: #### L 501.4021, L100.0100, L500.2500 #### [facility] [address] [place], [address] Eosinophil percentageOrdered By: Gosia Delaney on 06-21-2024 Eosinophils/100 WBC (Bld) 2.6 % 0-5 [facility] Erythrocyte distribution wid th ratioOrdered By: Gosia Delaney on 06-21-2024 Erythrocyte distribution width (RBC) [Ratio] 13.2 % 11.6-14.6 [facility] Erythrocyte distribution wid th standard deviationOrdered By: Gosia Delaney on 06-21-2024 Erythrocyte distribution width (RBC) [Entitic vol] 45.3 fL High 35.1-43.9 [facility] Estimated glomerular filtrat ion rate (GFR) AmericanOrdered By: Gosia Delaney on 06-21-2024 Estimated GFR (MDRD) Amer 75 mL/min >60 [facility] Comment on above: GFR Calc Glomerular filtration rate ( GFR) estimationOrdered By: Gosia Delaney on 06-21-2024 Estimated GFR (MDRD) Non-Af Amer 62 mL/min >60 [facility] Comment on above: Non- GFR Calc Glucose measurementOrdered B y: Gosia Delaney on 06-21-2024 Glucose [Mass/Vol] 95 mg/dL 74-106 [facility] Hematocrit Auto (Bld) [Volum e fraction]Ordered By: Gosia Delaney on 06-21-2024 Hematocrit (Bld) [Volume fraction] 43.8 % 40-54 [facility] Hemoglobin measurementOrdere d By: Gosia Delaney on 06-21-2024 Hemoglobin (Bld) [Mass/Vol] 14.9 g/dL 13.0-16.5 [facility] Immature granulocytes/100 WB C Auto (Bld)Ordered By: Gosia Delaney on 06-21-2024 Immature granulocytes/100 WBC (Bld) 0.300 % 0.0-0.9 [facility] Comment on above: IG% - Immature Granu locytes (promyelocytes, myelocytes and metamyelocytes) > 1% indicates that a LEFT SHIFT is Present. Laboratory - Chemistry and C hemistry - challengeOrdered By: Gosia Delaney on 06-21-2024 AST [Catalytic activity/Vol] 21 U/L 15-37 [facility] Lymphocytes Auto (Unsp spec) [#/Vol]Ordered By: Gosia Delaney on 06-21-2024 Lymphocytes (Bld) [#/Vol] 2.18 10*3/uL 0.83-4.5 1 [facility] Lymphocytes/100 WBC Auto (Un sp spec)Ordered By: Gosia Delaney on 06-21-2024 Lymphocytes/100 WBC (Bld) 24.9 % 19-41 [facility] MCV (mean corpuscular volume ) determinationOrdered By: Gosia Delaney on 06-21-2024 MCV (RBC) [Entitic vol] 92.0 fL 80-[address] [facility] Magnesiumon 06-21-2024 Magnesium [Mass/Vol] 2.2 mg/dL Normal 1.6-2.6 [facility] Comment on above: Order Comment: Order Date: 06/20/24Order Info: [id number] - CMPOrder Info: [id number] - MGOrder Info: [id number] - TSH Performed By: #### L 501.4021, L100.0100, L500.2500 #### [facility] [address] [place], [place], [address] Magnesium measurementOrdered By: Gosia Delaney on 06-21-2024 Magnesium [Mass/Vol] 2.2 mg/dL 1.6-2.6 [facility] Mean corpuscular hemoglobin (MCH) determinationOrdered By: Gosia Delaney on 06-21-2024 MCH (RBC) [Entitic mass] 31.3 pg 27.0-32.0 [facility] Mean corpuscular hemoglobin concentration (MCHC) determinationOrdered By: Gosia Delaney on 06-21-2024 MCHC (RBC) [Mass/Vol] 34.0 g/dL 32-36 [facility] Mean platelet volume determi nationOrdered By: Gosia Delaney on 06-21-2024 Platelet mean volume (Bld) [Entitic vol] 11.0 fL 6.2-12.0 [facility] Microalb:Creat Ratio,Random URon 06-21-2024 Creatinine [Mass/Vol] 78.60 mg/dL Normal NO RAN GE EST. [facility] Comment on above: Order Comment: Order Date: 06/20/24Order Info: [id number] - NAUOrder Info: [id number] - OSUOrder Info: [id number] - MIACRE Performed By: #### L 501.4021, L100.0100, L500.2500 #### [facility] [address] [place], [place], [address] MALB:CRE 38.8 mg/g CRE High <30 mg/g CRE [facility] Comment on above: Order Comment: Order Date: 06/20/24Order Info: [id number] - NAUOrder Info: [id number] - OSUOrder Info: [id number] - MIACRE Performed By: #### L 501.4021, L100.0100, L500.2500 #### [facility] [address] [place], [address] MICROALBUMIN,UR 30.5 mg/L Normal NO RANGE EST. [facility] Comment on above: Order Comment: Order Date: 06/20/24Order Info: [id number] - NAUOrder Info: [id number] - OSUOrder Info: [id number] - MIACRE Performed By: #### L 501.4021, L100.0100, L500.2500 #### [facility] [address] [place], [address] Monocyte percentageOrdered B y: Gosia Delaney on 06-21-2024 Monocytes/100 WBC (Bld) 7.9 % 0-[address] [facility] Neutrophil percentageOrdered By: Gosia Delaney on 06-21-2024 Neutrophils/100 WBC (Bld) 63.8 % 47-70 [facility] Nucleated red blood cell per centageOrdered By: Gosia Delaney on 06-21-2024 Nucleated RBC/100 WBC (Bld) [Ratio] 0 % 0-5 [facility] Osmolality (U) [Osmolality]O rdered By: Gosia Delaney on 06-21-2024 Urine Osmolality 383 mOsm/KG >50 [facility] Comment on above: Normal Urine Referen ce Ranges Random: 50 - 1200 mOsm/kg H20 depending on fluid intake Random: >850 mOsm/kg after 12 hour fluid restriction 24 hour: ~300 - 900 mOsm/kg H2O Osmolality, Serumon 06-21-19 25 OSMOLALITY,SER 276 mOsm/KG Low 280-301 [facility] Comment on above: Order Comment: Order Date: 06/20/24Order Info: 2692-2 - OS Performed By: #### L 500.3400, L501.2450 #### [facility] [address] [place], [place], [address] Osmolality, Urineon 06-21-19 25 OSMOLALITY,UR 383 mOsm/KG Normal [facility] Comment on above: Order Comment: Order Date: 06/20/24Order Info: 2955-3 - NAUOrder Info: 2694-5 - OSUOrder Info: [id number] - MIACRE Result Comment: Normal Urine Reference Ranges Random: 50 - 1200 mOsm/kg H20 depending on fluid intake Random: >850 mOsm/kg after 12 hour fluid restriction 24 hour: 300 - 900 mOsm/kg H2O Performed By: #### L 500.3400, L501.2450 #### [facility] [address] [place], [address] Osmolality, serumOrdered By: Gosia Delaney on 06-21-2024 Serum Osmolality 276 mOsm/KG Low 280-301 [facility] Platelet countOrdered By: Joni Delaney on 06-21-2024 Platelets (Bld) [#/Vol] 245 10*3/uL 150-450 [facility] Potassium measurementOrdered By: Gosia Delaney on 06-21-2024 Potassium [Moles/Vol] 4.3 mmol/L 3.5-5.1 [facility] RBC Auto (Bld) [#/Vol]Ordere d By: Gosia Delaney on 06-21-2024 RBC (Bld) [#/Vol] 4.76 10*6/uL 4.6-6.2 [facility] Random urine microalbumin me asurementOrdered By: Gosia Delaney on 06-21-2024 Urine Random Microalbumin 30.5 mg/L NO RANGE EST. [facility] Serum anion gap measurementO rdered By: Gosia Delaney on 06-21-2024 Anion gap [Moles/Vol] 8 mmol/L 5-15 [facility] Serum globulin measurementOr dered By: Gosia Delaney on 06-21-2024 Globulin (S) [Mass/Vol] 3.6 g/dL 2.2-4.[address] [facility] Serum or plasma alanine gibson otransferase (ALT) measurementOrdered By: Gosia Dleaney on 06-21-2024 ALT [Catalytic activity/Vol] 27 U/L 16-61 [facility] Serum or plasma albumin zac urement (mass/volume)Ordered By: Gosia Delaney on 06-21-2024 Albumin [Mass/Vol] 4.1 g/dL 3.2-5.0 [facility] Serum or plasma alkaline rafa sphatase measurementOrdered By: Gosia Delaney on 06-21-2024 ALP [Catalytic activity/Vol] 74 U/L 45-117 [facility] Serum or plasma calcium zac urement (mass/volume)Ordered By: Gosia Delaney on 06-21-2024 Calcium [Mass/Vol] 9.3 mg/dL 8.5-10.1 [facility] Serum or plasma creatinine m easurement (mass/volume)Ordered By: Gosia Delaney on 06-21-2024 Creatinine [Mass/Vol] 1.23 mg/dL 0.70-1.30 [facility] Comment on above: The validity of the calculated GFR & GFRAA in patients over 70 years has not been determined. Clinical correlation is essential. Serum or plasma urea nitroge n measurement (mass/volume)Ordered By: Gosia Delaney on 06-21-2024 Urea nitrogen [Mass/Vol] 15 mg/dL 7-18 [facility] Sodium levelOrdered By: Gosia Delaney on 06-21-2024 Sodium [Moles/Vol] 132 mmol/L Low 136-145 [facility] Sodium urOrdered By: Gosia ugalde on 06-21-2024 Sodium (U) [Moles/Vol] 48 mmol/L Not Establ. [facility] TSH QnOrdered By: Gosia Delaney on 06-21-2024 Thyroid Stimulating Hormone (TSH) 2.900 uIU/mL 0.358-3.740 [facility] Thyroid Stim Hormone (TSH)on 06-21-2024 TSH 2.900 uIU/mL Normal 0.358-3.740 [facility] Comment on above: Order Comment: Order Date: 06/20/24Order Info: 0786-1 - CMPOrder Info: [id number] - MGOrder Info: 3016-3 - TSH Performed By: #### L 501.4021, L100.0100, L500.2500 #### [facility] [address] [place], [address] Total proteinOrdered By: Julia Delaney on 06-21-2024 Protein [Mass/Vol] 7.7 g/dL 6.4-8.2 [facility] Urine Sodiumon 06-21-2024 Sodium (U) [Moles/Vol] 48 mmol/L Normal Not Establ. [facility] Comment on above: Order Comment: Order Date: 06/20/24Order Info: [id number] - NAUOrder Info: 2695-5 - OSUOrder Info: 0779-1 - MIACRE Performed By: #### L 501.4021, L100.0100, L500.2500 #### [facility] [address] [place], [address] Urine albumin/creatinine rat io for detection of microalbuminuriaOrdered By: Gosia Delaney on 06-21-2024 Urine Microalbumin/Creatinine Ratio 38.8 mg/g CRE High <30 [facility] Urine creatinine measurement (mass/volume)Ordered By: Gosia Delaney on 06-21-2024 Creatinine (U) [Mass/Vol] 78.60 mg/dL NO RANGE EST. [facility] White blood cell (WBC) count Ordered By: Gosia Delaney on 06-21-2024 WBC (Bld) [#/Vol] 8.8 10*3/uL 4.4-11.0 [facility] Osmolality, Urineon 01-19-20 24 OSMOLALITY,UR 551 mOsm/KG Normal [facility] Comment on above: Order Comment: Order Date: 01/13/24Order Info: 2955-3 - GEORGE Result Comment: Normal Urine Reference Ranges Random: 50 - 1200 mOsm/kg H20 depending on fluid intake Random: >850 mOsm/kg after 12 hour fluid restriction 24 hour: 300 - 900 mOsm/kg H2O Performed By: #### L 501.4021, L100.0100, L500.2500 #### [facility] [address] [place], [address] Urine Sodiumon 01-19-2024 Sodium (U) [Moles/Vol] 87 mmol/L Normal Not Establ. [facility] Comment on above: Order Comment: Order Date: 01/13/24 Order Info: [id number] - GEORGE Performed By: #### L 501.5500 #### [facility] [address] [place], [address] L501.5101on 01-15-2024 GGTP 41 IU/L Normal 0-65 [facility] Comment on above: Order Comment: Order Date: 01/13/24Order Info: 2324-2 - GGTP Result Comment: Perf ormed at: CB - [facility] [address] [id number] Hot End Operator: Aquilino Gómez PhD, Phone: [phone] Performed By: #### L 501.4021, L100.0100, L500.2500 #### [facility] [address] [place], [address] Comprehensive Metabolic Prof ilon 01-14-2024 Albumin [Mass/Vol] 3.9 g/dL Normal 3.2-5.0 [facility] Comment on above: Order Comment: Order Date: 01/13/24Order Info: 0786-1 - CMP Performed By: #### L 501.4021, L100.0100, L500.2500 #### [facility] [address] [place], [address] Albumin/Globulin [Mass ratio] 1.1 {ratio} Normal 0.9-2.4 [facility] Comment on above: Order Comment: Order Date: 01/13/24Order Info: 0786-1 - CMP Performed By: #### L 501.4021, L100.0100, L500.2500 #### [facility] [address] [place], [address] ALK P 90 U/L Normal 45-117 [facility] Comment on above: Order Comment: Order Date: 01/13/24Order Info: 0786-1 - CMP Performed By: #### L 501.4021, L100.0100, L500.2500 #### [facility] [address] [place], [address] ALT [Catalytic activity/Vol] 28 U/L Normal 16-61 [facility] Comment on above: Order Comment: Order Date: 01/13/24Order Info: 0786-1 - CMP Performed By: #### L 501.4021, L100.0100, L500.2500 #### [facility] [address] [place], [address] AST [Catalytic activity/Vol] 17 U/L Normal 15-37 [facility] Comment on above: Order Comment: Order Date: 01/13/24Order Info: 0786-1 - CMP Performed By: #### L 501.4021, L100.0100, L500.2500 #### [facility] [address] [place], [address] Bilirubin [Mass/Vol] 0.50 mg/dL Normal 0.20-1.00 [facility] Comment on above: Order Comment: Order Date: 01/13/24Order Info: 0786-1 - CMP Result Comment: For patients on eltrombopag therapy, use of Dimension [place] TBIL is not recommended. Performed By: #### L 501.4021, L100.0100, L500.2500 #### [facility] [address] [place], [address] BUN/CRE 13.6 RATIO Normal 10-20 [facility] Comment on above: Order Comment: Order Date: 01/13/24Order Info: 0786-1 - CMP Performed By: #### L 501.4021, L100.0100, L500.2500 #### [facility] [address] [place], [address] CA,Total 9.8 mg/dL Normal 8.5-10.1 [facility] Comment on above: Order Comment: Order Date: 01/13/24Order Info: 0786-1 - CMP Performed By: #### L 501.4021, L100.0100, L500.2500 #### [facility] [address] [place], [address] Chloride [Moles/Vol] 100 mmol/L Normal 98-107 [facility] Comment on above: Order Comment: Order Date: 01/13/24Order Info: 0786-1 - CMP Performed By: #### L 501.4021, L100.0100, L500.2500 #### [facility] [address] [place], [address] CO2 [Moles/Vol] 26.0 mmol/L Normal 21.0-32.0 [facility] Comment on above: Order Comment: Order Date: 01/13/24Order Info: 0786- - CMP Performed By: #### L 501.4021, L100.0100, L500.2500 #### [facility] [address] [place], [address] Creatinine [Mass/Vol] 1.25 mg/dL Normal 0.70-1.30 [facility] Comment on above: Order Comment: Order Date: 01/13/24Order Info: 0786- - CMP Result Comment: The validity of the calculated GFR GFRAA in patients over 70 years has not been determined. Clinical correlation is essential. Performed By: #### L 501.4021, L100.0100, L500.2500 #### [facility] [address] [place], [address] EST GFR - AA 73 mL/min Normal >60 [facility] Comment on above: Order Comment: Order Date: 01/13/24Order Info: 0786- - CMP Result Comment: Afri can Lebanese GFR Calc Performed By: #### L 501.4021, L100.0100, L500.2500 #### [facility] [address] [place], [address] GAP 7 Normal 5-15 [facility] Comment on above: Order Comment: Order Date: 01/13/24Order Info: 0786-1 - CMP Performed By: #### L 501.4021, L100.0100, L500.2500 #### [facility] [address] [place], [address] GFR/1.73 sq M.predicted among non-blacks MDRD (S/P/Bld) [Vol rate/Area] 61 mL/min/{1.73_m2} Normal >60 [facility] Comment on above: Order Comment: Order Date: 01/13/24Order Info: 0786-1 - CMP Result Comment: Non- GFR Calc Performed By: #### L 501.4021, L100.0100, L500.2500 #### [facility] [address] [place], [address] Globulin (S) [Mass/Vol] 3.5 g/dL Normal 2.2-4.2 [facility] Comment on above: Order Comment: Order Date: 01/13/24Order Info: 0786-1 - CMP Performed By: #### L 501.4021, L100.0100, L500.2500 #### [facility] [address] [place], [address] Glucose [Mass/Vol] 100 mg/dL Normal 74-106 [facility] Comment on above: Order Comment: Order Date: 01/13/24Order Info: 0786-1 - CMP Result Comment: Fast ing Glucose result from 100 to 125 mg/dL suggests IMPAIRED HOMEOSTASIS per A.D.A. criteria. Performed By: #### L 501.4021, L100.0100, L500.2500 #### [facility] [address] [place], [address] Potassium [Moles/Vol] 3.9 mmol/L Normal 3.5-5.1 [facility] Comment on above: Order Comment: Order Date: 01/13/24Order Info: 0786-1 - CMP Performed By: #### L 501.4021, L100.0100, L500.2500 #### [facility] [address] [place], [address] Sodium [Moles/Vol] 133 mmol/L Low 136-145 [facility] Comment on above: Order Comment: Order Date: 01/13/24Order Info: 0786-1 - CMP Performed By: #### L 501.4021, L100.0100, L500.2500 #### [facility] [address] [place], [address] T PROT 7.4 g/dL Normal 6.4-8.2 [facility] Comment on above: Order Comment: Order Date: 01/13/24Order Info: 0786-1 - CMP Performed By: #### L 501.4021, L100.0100, L500.2500 #### [facility] [address] [place], [address] Urea nitrogen [Mass/Vol] 17 mg/dL Normal 7-18 [facility] Comment on above: Order Comment: Order Date: 01/13/24Order Info: 0786-1 - CMP Performed By: #### L 501.4021, L100.0100, L500.2500 #### [facility] [address] [place], [address] Osmolality, Serumon 01-14-20 24 OSMOLALITY,SER 289 mOsm/KG Normal 280-301 [facility] Comment on above: Order Comment: Order Date: 01/13/24Order Info: 2692-2 - OS Performed By: #### L 501.4021, L100.0100, L500.2500 #### [facility] [address] [place], [address] CBC W/Diff, Automatedon 12-08 Absolute Lymph 1.85 X10 3/uL Normal 0.83-4.51 [facility] Comment on above: Order Comment: Order Date: 12/20/23 Order Info: 0184-1 - CBCD Comments: cc copy to Dr. Kayli Polo Performed By: #### L 506.0400, L500.4100, L501.9520, L100.0100, L500.4050 #### [facility] [address] [place], [address] Absolute Neut 4.5 X10 3/uL Normal 2.0-7.7 [facility] Comment on above: Order Comment: Order Date: 12/20/23 Order Info: 0184-1 - CBCD Comments: cc copy to Dr. Kayli Polo Performed By: #### L 506.0400, L500.4100, L501.9520, L100.0100, L500.4050 #### [facility] [address] [place], [address] Basophils/100 WBC (Bld) 0.7 % Normal 0-[address] [facility] Comment on above: Order Comment: Order Date: 12/20/23 Order Info: 0184-1 - CBCD Comments: cc copy to Dr. Kayli Polo Performed By: #### L 506.0400, L500.4100, L501.9520, L100.0100, L500.4050 #### [facility] [address] [place], [address] Eosinophils/100 WBC (Bld) 4.1 % Normal 0-5 [facility] Comment on above: Order Comment: Order Date: 12/20/23 Order Info: 0184-1 - CBCD Comments: cc copy to Dr. Kayli Polo Performed By: #### L 506.0400, L500.4100, L501.9520, L100.0100, L500.4050 #### [facility] [address] [place], [address] Erythrocyte distribution width (RBC) [Ratio] 13.7 % Normal 11.6-14.6 [facility] Comment on above: Order Comment: Order Date: 12/20/23 Order Info: 0184-1 - CBCD Comments: cc copy to Dr. Kayli Polo Performed By: #### L 506.0400, L500.4100, L501.9520, L100.0100, L500.4050 #### [facility] [address] [place], [address] Hematocrit (Bld) [Volume fraction] 44.4 % Normal 40-54 [facility] Comment on above: Order Comment: Order Date: 12/20/23 Order Info: 0184-1 - CBCD Comments: cc copy to Dr. Kayli Polo Performed By: #### L 506.0400, L500.4100, L501.9520, L100.0100, L500.4050 #### [facility] [address] [place], [address] Hemoglobin (Bld) [Mass/Vol] 14.9 g/dL Normal 13.0-16.5 [facility] Comment on above: Order Comment: Order Date: 12/20/23 Order Info: 0184-1 - CBCD Comments: cc copy to Dr. Kayli Polo Performed By: #### L 506.0400, L500.4100, L501.9520, L100.0100, L500.4050 #### [facility] [address] [place], [address] IG% 0.300 Normal 0.0-0.9 [facility] Comment on above: Order Comment: Order Date: 12/20/23 Order Info: 0184-1 - CBCD Comments: cc copy to Dr. Kayli Polo Result Comment: IG% - Immature Granulocytes (promyelocytes, myelocytes and metamyelocytes) > 1% indicates that a LEFT SHIFT is Present. Performed By: #### L 506.0400, L500.4100, L501.9520, L100.0100, L500.4050 #### [facility] [address] [place], [address] Lymphocytes/100 WBC (Bld) 25.3 % Normal 19-41 [facility] Comment on above: Order Comment: Order Date: 12/20/23 Order Info: 0184-1 - CBCD Comments: cc copy to Dr. Kayli Polo Performed By: #### L 506.0400, L500.4100, L501.9520, L100.0100, L500.4050 #### [facility] [address] [place], [address] MCH (RBC) [Entitic mass] 30.8 pg Normal 27.0-32.0 [facility] Comment on above: Order Comment: Order Date: 12/20/23 Order Info: 0184-1 - CBCD Comments: cc copy to Dr. Kayli Polo Performed By: #### L 506.0400, L500.4100, L501.9520, L100.0100, L500.4050 #### [facility] [address] [place], [address] MCHC (RBC) [Mass/Vol] 33.6 g/dL Normal 32-36 [facility] Comment on above: Order Comment: Order Date: 12/20/23 Order Info: 0184-1 - CBCD Comments: cc copy to Dr. Kayli Polo Performed By: #### L 506.0400, L500.4100, L501.9520, L100.0100, L500.4050 #### [facility] [address] [place], [address] MCV (RBC) [Entitic vol] 91.9 fL Normal 80-94 [facility] Comment on above: Order Comment: Order Date: 12/20/23 Order Info: 0184-1 - CBCD Comments: cc copy to Dr. Kayli Polo Performed By: #### L 506.0400, L500.4100, L501.9520, L100.0100, L500.4050 #### [facility] [address] [place], [address] Monocytes/100 WBC (Bld) 8.5 % Normal 0-[address] [facility] Comment on above: Order Comment: Order Date: 12/20/23 Order Info: 0184-1 - CBCD Comments: cc copy to Dr. Kayli Polo Performed By: #### L 506.0400, L500.4100, L501.9520, L100.0100, L500.4050 #### [facility] [address] [place], [address] Neutrophils/100 WBC (Bld) 61.1 % Normal 47-70 [facility] Comment on above: Order Comment: Order Date: 12/20/23 Order Info: 0184-1 - CBCD Comments: cc copy to Dr. Kayli Polo Performed By: #### L 506.0400, L500.4100, L501.9520, L100.0100, L500.4050 #### [facility] [address] [place], [address] Nucleated RBC (Bld) [#/Vol] 0 10*3/uL Normal 0-5 [facility] Comment on above: Order Comment: Order Date: 12/20/23 Order Info: 0184-1 - CBCD Comments: cc copy to Dr. Kayli Polo Performed By: #### L 506.0400, L500.4100, L501.9520, L100.0100, L500.4050 #### [facility] [address] [place], [address] Platelet mean volume (Bld) [Entitic vol] 10.2 fL Normal 6.2-12.0 [facility] Comment on above: Order Comment: Order Date: 12/20/23 Order Info: 0184-1 - CBCD Comments: cc copy to Dr. Kayli Polo Performed By: #### L 506.0400, L500.4100, L501.9520, L100.0100, L500.4050 #### [facility] [address] [place], [address] Platelets (Bld) [#/Vol] 269 10*3/uL Normal 150-450 [facility] Comment on above: Order Comment: Order Date: 12/20/23 Order Info: 0184-1 - CBCD Comments: cc copy to Dr. Kayli Polo Performed By: #### L 506.0400, L500.4100, L501.9520, L100.0100, L500.4050 #### [facility] [address] [place], [address] RBC (Bld) [#/Vol] 4.83 10*6/uL Normal 4.6-6.2 [facility] Comment on above: Order Comment: Order Date: 12/20/23 Order Info: 0184-1 - CBCD Comments: cc copy to Dr. Kayli Polo Performed By: #### L 506.0400, L500.4100, L501.9520, L100.0100, L500.4050 #### [facility] [address] [place], [address] RDW SD 46.7 fl High 35.1-43.9 [facility] Comment on above: Order Comment: Order Date: 12/20/23 Order Info: 0184- - CBCD Comments: cc copy to Dr. Kayli Polo Performed By: #### L 506.0400, L500.4100, L501.9520, L100.0100, L500.4050 #### [facility] [address] [place], [address] WBC (Bld) [#/Vol] 7.3 10*3/uL Normal 4.4-11.0 [facility] Comment on above: Order Comment: Order Date: 12/20/23 Order Info: 0184- - CBCD Comments: cc copy to Dr. Kayli Polo Performed By: #### L 506.0400, L500.4100, L501.9520, L100.0100, L500.4050 #### [facility] [address] [place], [address] [facility] 12-20-2023 Albumin [Mass/Vol] 4.0 g/dL Normal 3.2-5.0 [facility] Comment on above: Order Comment: Order Date: 12/20/23 Order Info: 0786-1 - CMP Order Info: [id number] - LIPID Comments: cc copy to Dr. Kayli Polo Order Info: [id number] - TSH Order Info: 3023-11 T4F cc copy to Dr. Kayli Polo Performed By: #### L 506.0400, L500.4100, L501.9520, L100.0100, L500.4050 #### [facility] [address] [place], [address] Albumin/Globulin [Mass ratio] 1.2 {ratio} Normal 0.9-2.4 [facility] Comment on above: Order Comment: Order Date: 12/20/23 Order Info: 785-05 - CMP Order Info: [id number] - LIPID Comments: cc copy to Dr. Kayli Polo Order Info: [id number] - TSH Order Info: 3023-11 T4F cc copy to Dr. Kayli Polo Performed By: #### L 506.0400, L500.4100, L501.9520, L100.0100, L500.4050 #### [facility] [address] [place], [address] ALK P 114 U/L Normal 45-117 [facility] Comment on above: Order Comment: Order Date: 12/20/23 Order Info: 785-05 - CMP Order Info: [id number] - LIPID Comments: cc copy to Dr. Kayli Polo Order Info: [id number] - TSH Order Info: 3023-11 T4F cc copy to Dr. Kayli Polo Performed By: #### L 506.0400, L500.4100, L501.9520, L100.0100, L500.4050 #### [facility] [address] [place], [address] ALT [Catalytic activity/Vol] 77 U/L High 16-61 [facility] Comment on above: Order Comment: Order Date: 12/20/23 Order Info: 785-05 - CMP Order Info: [id number] - LIPID Comments: cc copy to Dr. Kayli Polo Order Info: [id number] - TSH Order Info: 3023-11 T4F cc copy to Dr. Kayli Polo Performed By: #### L 506.0400, L500.4100, L501.9520, L100.0100, L500.4050 #### [facility] [address] [place], [address] AST [Catalytic activity/Vol] 46 U/L High 15-37 [facility] Comment on above: Order Comment: Order Date: 12/20/23 Order Info: 86-1 - CMP Order Info: [id number] - LIPID Comments: cc copy to Dr. Kayli Polo Order Info: 3015-07 - TSH Order Info: 3023-11 T4F cc copy to Dr. Kayli Polo Performed By: #### L 506.0400, L500.4100, L501.9520, L100.0100, L500.4050 #### [facility] [address] [place], [address] Bilirubin [Mass/Vol] 0.60 mg/dL Normal 0.20-1.00 [facility] Comment on above: Order Comment: Order Date: 12/20/23 Order Info: 785-05 - CMP Order Info: [id number] - LIPID Comments: cc copy to Dr. Kayli Polo Order Info: [id number] - TSH Order Info: 3023-11 T4F cc copy to Dr. Kayli Polo Result Comment: For patients on eltrombopag therapy, use of Dimension [place] TBIL is not recommended. Performed By: #### L 506.0400, L500.4100, L501.9520, L100.0100, L500.4050 #### [facility] [address] [place], [address] BUN/CRE 17.8 RATIO Normal 10-20 [facility] Comment on above: Order Comment: Order Date: 12/20/23 Order Info: 785-1 - CMP Order Info: [id number] - LIPID Comments: cc copy to Dr. Kayli Polo Order Info: 3 - TSH Order Info: 3023-11 T4F cc copy to Dr. Kayli Polo Performed By: #### L 506.0400, L500.4100, L501.9520, L100.0100, L500.4050 #### [facility] [address] [place], [address] CA,Total 9.7 mg/dL Normal 8.5-10.1 [facility] Comment on above: Order Comment: Order Date: 12/20/23 Order Info: 785-05 - CMP Order Info: [id number] - LIPID Comments: cc copy to Dr. Kayli Polo Order Info: [id number] - TSH Order Info: 3023-11 T4F cc copy to Dr. Kayli Polo Performed By: #### L 506.0400, L500.4100, L501.9520, L100.0100, L500.4050 #### [facility] [address] [place], [address] Chloride [Moles/Vol] 99 mmol/L Normal 98-107 [facility] Comment on above: Order Comment: Order Date: 12/20/23 Order Info: 785-05 - CMP Order Info: [id number] - LIPID Comments: cc copy to Dr. Kayli Polo Order Info: 3015-07 - TSH Order Info: 3023-11 T4F cc copy to Dr. Kayli Polo Performed By: #### L 506.0400, L500.4100, L501.9520, L100.0100, L500.4050 #### [facility] [address] [place], [address] CO2 [Moles/Vol] 29.0 mmol/L Normal 21.0-32.0 [facility] Comment on above: Order Comment: Order Date: 12/20/23 Order Info: 785-05 - CMP Order Info: [id number] - LIPID Comments: cc copy to Dr. Kayli Polo Order Info: [id number] - TSH Order Info: 3023-11 T4F cc copy to Dr. Kayli Polo Performed By: #### L 506.0400, L500.4100, L501.9520, L100.0100, L500.4050 #### [facility] [address] [place], [address] Creatinine [Mass/Vol] 1.07 mg/dL Normal 0.70-1.30 [facility] Comment on above: Order Comment: Order Date: 12/20/23 Order Info: 07 - CMP Order Info: [id number] - LIPID Comments: cc copy to Dr. Kayli Polo Order Info: 3015-07 - TSH Order Info: 3023-[address] Kayli Polo Result Comment: The validity of the calculated GFR GFRAA in patients over 70 years has not been determined. Clinical correlation is essential. Performed By: #### L 506.0400, L500.4100, L501.9520, L100.0100, L500.4050 #### [facility] [address] [place], [address] EST GFR - AA 88 mL/min Normal >60 [facility] Comment on above: Order Comment: Order Date: 12/20/23 Order Info: 785-05 - CMP Order Info: [id number] - LIPID Comments: cc copy to Dr. Kayli Polo Order Info: [id number] - TSH Order Info: 3023-[address] Kayli Polo Result Comment: Afri can Lebanese GFR Calc Performed By: #### L 506.0400, L500.4100, L501.9520, L100.0100, L500.4050 #### [facility] [address] [place], [address] GAP 4 Low 5-15 [facility] Comment on above: Order Comment: Order Date: 12/20/23 Order Info: [id number] - CMP Order Info: [id number] - LIPID Comments: cc copy to Dr. Kayli Polo Order Info: [id number] - TSH Order Info: 3023-11 T4 cc copy to Dr. Kayli Polo Performed By: #### L 506.0400, L500.4100, L501.9520, L100.0100, L500.4050 #### [facility] [address] [place], [place], [id number] GFR/1.73 sq M.predicted among non-blacks MDRD (S/P/Bld) [Vol rate/Area] 73 mL/min/{1.73_m2} Normal >60 [facility] Comment on above: Order Comment: Order Date: 12/20/23 Order Info: [id number] - CMP Order Info: [id number] - LIPID Comments: cc copy to Dr. Kayli Polo Order Info: [id number] - TSH Order Info: 3023-11 T4 cc copy to Dr. Kayli Polo Result Comment: Non- GFR Calc Performed By: #### L 506.0400, L500.4100, L501.9520, L100.0100, L500.4050 #### [facility] [address] [place], [address] Globulin (S) [Mass/Vol] 3.3 g/dL Normal 2.2-4.2 [facility] Comment on above: Order Comment: Order Date: 12/20/23 Order Info: [id number] - CMP Order Info: [id number] - LIPID Comments: cc copy to Dr. Kayli Polo Order Info: [id number] - TSH Order Info: 3023-[address] Kayli Polo Performed By: #### L 506.0400, L500.4100, L501.9520, L100.0100, L500.4050 #### [facility] [address] [place], [address] Glucose [Mass/Vol] 104 mg/dL Normal 74-106 [facility] Comment on above: Order Comment: Order Date: 12/20/23 Order Info: [id number]- - CMP Order Info: [id number] - LIPID Comments: cc copy to Dr. Kayli Polo Order Info: [id number] - TSH Order Info: 3023-11 T4F cc copy to Dr. Kayli Polo Result Comment: Fast ing Glucose result from 100 to 125 mg/dL suggests IMPAIRED HOMEOSTASIS per A.D.A. criteria. Performed By: #### L 506.0400, L500.4100, L501.9520, L100.0100, L500.4050 #### [facility] [address] [place], [address] Potassium [Moles/Vol] 4.2 mmol/L Normal 3.5-5.1 [facility] Comment on above: Order Comment: Order Date: 12/20/23 Order Info: [id number] - CMP Order Info: [id number] - LIPID Comments: cc copy to Dr. Kayli Polo Order Info: [id number] - TSH Order Info: 3023-11 T4F cc copy to Dr. Kayli Polo Performed By: #### L 506.0400, L500.4100, L501.9520, L100.0100, L500.4050 #### [facility] [address] [place], [address] Sodium [Moles/Vol] 132 mmol/L Low 136-145 [facility] Comment on above: Order Comment: Order Date: 12/20/23 Order Info: [id number] - CMP Order Info: [id number] - LIPID Comments: cc copy to Dr. Kayli Polo Order Info: [id number] - TSH Order Info: 3023-11 T4F cc copy to Dr. Kayli Polo Performed By: #### L 506.0400, L500.4100, L501.9520, L100.0100, L500.4050 #### [facility] [address] [place], [address] T PROT 7.3 g/dL Normal 6.4-8.2 [facility] Comment on above: Order Comment: Order Date: 12/20/23 Order Info: [id number] - CMP Order Info: [id number] - LIPID Comments: cc copy to Dr. Kayli Polo Order Info: 3 - TSH Order Info: 3023-11 T4F cc copy to Dr. Kayli Polo Performed By: #### L 506.0400, L500.4100, L501.9520, L100.0100, L500.4050 #### [facility] [address] [place], [address] Urea nitrogen [Mass/Vol] 19 mg/dL High 7-18 [facility] Comment on above: Order Comment: Order Date: 12/20/23 Order Info: 07-1 - CMP Order Info: [id number] - LIPID Comments: cc copy to Dr. Kayli Polo Order Info: [id number] - TSH Order Info: 3023-11 T4F cc copy to Dr. Kayli Polo Performed By: #### L 506.0400, L500.4100, L501.9520, L100.0100, L500.4050 #### [facility] [address] [place], [address] Lipid Profileon 12-20-2023 Cholesterol [Mass/Vol] 139 mg/dL Normal 200 [facility] Comment on above: Order Comment: Order Date: 12/20/23 Order Info: [id number] - CMP Order Info: [id number] - LIPID Comments: cc copy to Dr. Kayli Polo Order Info: [id number] - TSH Order Info: 3023-11 T4 cc copy to Dr. Kayli Polo Result Comment: <200 mg/dL Desirable 200-240 mg/dL Borderline >240 mg/dL High Risk Performed By: #### L 506.0400, L500.4100, L501.9520, L100.0100, L500.4050 #### [facility] [address] [place], [address] Cholesterol in HDL [Mass/Vol] 48 mg/dL Normal [facility] Comment on above: Order Comment: Order Date: 12/20/23 Order Info: [id number] - CMP Order Info: [id number] - LIPID Comments: cc copy to Dr. Kayli Polo Order Info: 3 - TSH Order Info: 3023-11 T4F cc copy to Dr. Kayli Polo Result Comment: The drugs N-Acetylcysteine and Metamizole may falsely depress this assay. Reference Range HDL <40 mg/dL Low HDL Cholesterol HDL >or= 60 mg/dL High HDL Cholesterol Performed By: #### L 506.0400, L500.4100, L501.9520, L100.0100, L500.4050 #### [facility] [address] [place], [address] Cholesterol in LDL [Mass/Vol] 62 mg/dL Normal 0-130 [facility] Comment on above: Order Comment: Order Date: 12/20/23 Order Info: 07- - CMP Order Info: [id number] - LIPID Comments: cc copy to Dr. Kayli Polo Order Info: [id number] - TSH Order Info: 3023-11 T4F cc copy to Dr. Kayli Polo Performed By: #### L 506.0400, L500.4100, L501.9520, L100.0100, L500.4050 #### [facility] [address] [place], [address] Cholesterol in VLDL [Mass/Vol] 29 mg/dL Normal 5-40 [facility] Comment on above: Order Comment: Order Date: 12/20/23 Order Info: [id number] - CMP Order Info: [id number] - LIPID Comments: cc copy to Dr. Kayli Polo Order Info: [id number] - TSH Order Info: 3023-11 T4F cc copy to Dr. Kayli Polo Performed By: #### L 506.0400, L500.4100, L501.9520, L100.0100, L500.4050 #### [facility] [address] [place], [address] Triglyceride [Mass/Vol] 147 mg/dL Normal [facility] Comment on above: Order Comment: Order Date: 12/20/23 Order Info: 07 - CMP Order Info: [id number] - LIPID Comments: cc copy to Dr. [...] = 500 mg/dL Performed By: #### L 506.0400, L500.4100, L501.9520, L100.0100, L500.4050 #### [facility] [address] [place], [address] T4 Free Directon 12-20-2023 T4 FREE DIRECT 1.17 ng/dL Normal 0.76-1.46 [facility] Comment on above: Order Comment: Order Date: 12/20/23Order Info: [id number] - CMPOrder Info: [id number] - LIPIDComments: cc copy to Dr. Kayli PoloOrder Info: [id number] - TSHOrder Info: [id number] - T4Fcc copy to Dr. Kayli Polo Performed By: #### L 500.3400, L501.2450 #### [facility] [address] [place], [place], [address] Thyroid Stim Hormone (TSH)on 12-20-2023 TSH 2.22 uIU/mL Normal 0.358-3.74 [facility] Comment on above: Order Comment: Order Date: 12/20/23 Order Info: [id number] - CMP Order Info: [id number] - LIPID Comments: cc copy to Dr. Kayli Polo Order Info: [id number] - TSH Order Info: [id number] - T4F cc copy to Dr. Kayli Polo Performed By: #### L 506.0400, L500.4100, L501.9520, L100.0100, L500.4050 #### [facility] [address] [place], [address] CNOVon 08-30-2023 [facility] Office Visit ([facility] 3) FAHAD KIRK JR ([id number]) 1955 M Date Time Provider Department 08/30/23 2:00 PM MARY CARMEN LARA3 During your visit today, we recorded the following information about you: Blood pressure Weight Height 183/90 53.5 kg 1.6 m Mary Carmen Lara MD 08/30/2023 3:29 PM Signed Fahad Kirk Jr is a 68 year old, White [...] (more content not included)... Normal [facility] CNOVon 08-25-2023 [facility] Office Visit (AMAL[facility] ) FAHAD KIRK JR ([id number]) 1955 M Date Time Provider Department 08/25/23 [...] Mejia MD 08/28/2023 3:26 PM Signed Fahad Kirk Jr 1955 REFERRING PHYSICIAN: No ref. provider found CHIEF COMPLAINT: New Patient and Abdominal Pain HPI: The patient is a 68 year old male presents with abnormal findings on gallbladder ultrasound. He had presented to [facility] ED with right lower rib pain. He [...] (more content not included)... Normal [facility] Absolute lymphocyte countOrd ered By: Gosia Delaney on 07-06-2023 Lymphocytes Auto (Unsp spec) [#/Vol] 1.85 10*3/uL 0.83-4.51 [facility] Automated lymphocyte count a s percentage of total leukocytesOrdered By: Gosia Delaney on 07-06-2023 Lymphocytes/100 WBC Auto (Unsp spec) 27.5 % 19-41 [facility] Basophil percentageOrdered B y: Gosia Delaney on 07-06-2023 Basophils/100 WBC (Bld) 0.4 % 0-[address] [facility] Bilirubin [Mass/Vol] 0.60 mg/dL 0.20-1.00 [facility] Comment on above: For patients on eltr ombopag therapy, use of Dimension [place] TBIL is not recommended. Chloride [Moles/Vol] 102 mmol/L 98-107 [facility] Eosinophils/100 WBC (Bld) 5.3 % 0-5 [facility] Glucose [Mass/Vol] 111 mg/dL 74-106 [facility] Comment on above: Fasting Glucose resu lt from 100 to 125 mg/dL suggests IMPAIRED HOMEOSTASIS per A.D.A. criteria. Hemoglobin (Bld) [Mass/Vol] 15.1 g/dL 13.0-16.5 [facility] Monocytes/100 WBC (Bld) 8.6 % 0-[address] [facility] Neutrophils (Bld) [#/Vol] 3.9 10*3/uL 2.0-7.7 [facility] Neutrophils/100 WBC (Bld) 57.9 % 47-70 [facility] Potassium [Moles/Vol] 4.5 mmol/L 3.5-5.1 [facility] Protein [Mass/Vol] 7.7 g/dL 6.4-8.2 [facility] Sodium [Moles/Vol] 134 mmol/L 136-145 [facility] WBC (Bld) [#/Vol] 6.7 10*3/uL 4.4-11.0 [facility] Determination of erythrocyte mean corpuscular volume (MCV)Ordered By: Gosia Delaney on 07-06-2023 MCV (RBC) [Entitic vol] 91.6 fL 80-[address] [facility] Erythrocyte distribution wid th ratioOrdered By: Gosia Delaney on 07-06-2023 Erythrocyte distribution width (RBC) [Ratio] 13.1 % 11.6-14.6 [facility] Erythrocyte distribution wid th standard deviationOrdered By: Gosia Delaney on 07-06-2023 Erythrocyte distribution width (RBC) [Entitic vol] 44.2 fL 35.1-43.9 [facility] Hematocrit Auto (Bld) [Volum e fraction]Ordered By: Gosia Delaney on 07-06-2023 Hematocrit (Bld) [Volume fraction] 46.0 % 40-54 [facility] Immature granulocytes/100 WB C Auto (Bld)Ordered By: Gosia Delaney on 07-06-2023 Immature granulocytes/100 WBC (Bld) 0.300 % 0.0-0.9 [facility] Comment on above: IG% - Immature Granu locytes (promyelocytes, myelocytes and metamyelocytes) > 1% indicates that a LEFT SHIFT is Present. Laboratory - Chemistry and C hemistry - challengeOrdered By: Gosia Delaney on 07-06-2023 Albumin/Globulin [Mass ratio] 1.1 {ratio} 0.9-2.4 [facility] ALP [Catalytic activity/Vol] 103 U/L 45-117 [facility] ALT [Catalytic activity/Vol] 45 U/L 16-61 [facility] Amylase [Catalytic activity/Vol] 92 U/L 15-85 [facility] CO2 [Moles/Vol] 28.0 mmol/L 21.0-32.0 [facility] Globulin (S) [Mass/Vol] 3.6 g/dL 2.2-4.[address] [facility] Lipase [Catalytic activity/Vol] 21 U/L 13-75 [facility] Comment on above: Please note:LIPASE r evised reference range effective 22. New Lipase methodology. Expected to produce lower values than the previous assay method. NEW Reference Range: 13 - 75 U/L Urea nitrogen/Creatinine [Mass ratio] 12.9 mg/mg 10-20 [facility] - Hematology and Cell countsOrdered By: Gosia Delaney on 07-06-2023 MCH (RBC) [Entitic mass] 30.1 pg 27.0-32.0 [facility] MCHC (RBC) [Mass/Vol] 32.8 g/dL 32-36 [facility] Nucleated RBC/100 WBC (Bld) [Ratio] 0 % 0-5 [facility] Platelet mean volume (Bld) [Entitic vol] 11.0 fL 6.2-12.0 [facility] Platelets (Bld) [#/Vol] 243 10*3/uL 150-450 [facility] No Panel InformationOrdered By: Gosia Delaney on 07-06-2023 C-Reactive Protein Extended Range 6.67 mg/L 0.0-3.0 [facility] Comment on above: C-Reactive Protein ( CRP) provides useful information for thediagnosis, therapy and monitoring of inflammatory processesand associated diseases. For the evaluation of Relative Riskfor Cardiovascular Disease, a High Sensitivity CRP (HSCRP)should be ordered. Estimated GFR (MDRD) Amer 69 mL/min >60 [facility] Comment on above: GFR Calc Estimated GFR (MDRD) Non-Af Amer 57 mL/min >60 [facility] Comment on above: Non- GFR Calc RBC Auto (Bld) [#/Vol]Ordere d By: Gosia Delaney on 07-06-2023 RBC (Bld) [#/Vol] 5.02 10*6/uL 4.6-6.2 [facility] Serum or plasma calcium zac urement (mass/volume)Ordered By: Gosia Delaney on 07-06-2023 Calcium [Mass/Vol] 9.7 mg/dL 8.5-10.1 [facility] Serum or plasma creatinine m easurement (mass/volume)Ordered By: Gosia Delaney on 07-06-2023 Creatinine [Mass/Vol] 1.32 mg/dL 0.70-1.30 [facility] Comment on above: The validity of the calculated GFR & GFRAA in patients over 70 years has not been determined. Clinical correlation is essential. Serum or plasma urea nitroge n measurement (mass/volume)Ordered By: Gosia Delaney on 07-06-2023 Urea nitrogen [Mass/Vol] 17 mg/dL 7-18 [facility] Thin prep Papanicolaou smear with manual screeningOrdered By: Gosia Delaney on 07-06-2023 Thin prep Papanicolaou smear with manual screening 4.1 g/dL 3.2-5.0 [facility] Thin prep Papanicolaou smear with manual screening 21 U/L 15-37 [facility] Thin prep Papanicolaou smear with manual screening 4 5-15 [facility] Absolute lymphocyte countOrd ered By: Lionel Ocasio on 07-03-2023 Lymphocytes Auto (Unsp spec) [#/Vol] 1.38 10*3/uL 0.83-4.51 [facility] Automated lymphocyte count a s percentage of total leukocytesOrdered By: Lionel Ocasio on 07-03-2023 Lymphocytes/100 WBC Auto (Unsp spec) 19.8 % 19-41 [facility] Basophil percentageOrdered B y: Lionel Ocasio on 07-03-2023 Basophils/100 WBC (Bld) 0.4 % 0-[address] [facility] Bilirubin [Mass/Vol] 0.50 mg/dL 0.20-1.[address] [facility] Comment on above: For patients on eltr ombopag therapy, use of Dimension [place] TBIL is not recommended. Chloride [Moles/Vol] 103 mmol/L 98-107 [facility] Eosinophils/100 WBC (Bld) 4.6 % 0-5 [facility] Glucose [Mass/Vol] 105 mg/dL 74-106 [facility] Comment on above: Fasting Glucose resu lt from 100 to 125 mg/dL suggests IMPAIRED HOMEOSTASIS per A.D.A. criteria. Hemoglobin (Bld) [Mass/Vol] 14.4 g/dL 13.0-16.5 [facility] Monocytes/100 WBC (Bld) 7.2 % 0-[address] [facility] Neutrophils (Bld) [#/Vol] 4.7 10*3/uL 2.0-7.7 [facility] Neutrophils/100 WBC (Bld) 67.7 % 47-70 [facility] Potassium [Moles/Vol] 4.1 mmol/L 3.5-5.1 [facility] Protein [Mass/Vol] 6.7 g/dL 6.4-8.2 [facility] Sodium [Moles/Vol] 135 mmol/L 136-145 [facility] WBC (Bld) [#/Vol] 7.0 10*3/uL 4.4-11.0 [facility] Determination of erythrocyte mean corpuscular volume (MCV)Ordered By: Lionel Ocasio on 07-03-2023 MCV (RBC) [Entitic vol] 91.2 fL 80-[address] [facility] Direct bilirubinOrdered By: Lionel Ocasio on 07-03-2023 Bilirubin.direct [Mass/Vol] 0.21 mg/dL 0.00-0.30 [facility] Erythrocyte distribution wid th ratioOrdered By: Lionel Ocasio on 07-03-2023 Erythrocyte distribution width (RBC) [Ratio] 12.8 % 11.6-14.6 [facility] Erythrocyte distribution wid th standard deviationOrdered By: Lionel Ocasio on 07-03-2023 Erythrocyte distribution width (RBC) [Entitic vol] 42.8 fL 35.1-43.9 [facility] Hematocrit Auto (Bld) [Volum e fraction]Ordered By: Lionel Ocasio on 07-03-2023 Hematocrit (Bld) [Volume fraction] 43.4 % 40-54 [facility] Immature granulocytes/100 WB C Auto (Bld)Ordered By: Lionel Ocasio on 07-03-2023 Immature granulocytes/100 WBC (Bld) 0.300 % 0.0-0.9 [facility] Comment on above: IG% - Immature Granu locytes (promyelocytes, myelocytes and metamyelocytes) > 1% indicates that a LEFT SHIFT is Present. Laboratory - Chemistry and C hemistry - challengeOrdered By: Lionel Ocasio on 07-03-2023 ALP [Catalytic activity/Vol] 106 U/L 45-117 [facility] ALT [Catalytic activity/Vol] 94 U/L 16-61 [facility] CO2 [Moles/Vol] 28.0 mmol/L 21.0-32.0 [facility] Globulin (S) [Mass/Vol] 3.0 g/dL 2.2-4.[address] [facility] Urea nitrogen/Creatinine [Mass ratio] 16.1 mg/mg 10-20 [facility] - Hematology and Cell countsOrdered By: Lionel Ocasio on 07-03-2023 MCH (RBC) [Entitic mass] 30.3 pg 27.0-32.0 [facility] MCHC (RBC) [Mass/Vol] 33.2 g/dL 32-36 [facility] Nucleated RBC/100 WBC (Bld) [Ratio] 0 % 0-5 [facility] Platelet mean volume (Bld) [Entitic vol] 11.3 fL 6.2-12.0 [facility] Platelets (Bld) [#/Vol] 208 10*3/uL 150-450 [facility] No Panel InformationOrdered By: Lionel Ocasio on 07-03-2023 D-Dimer Quantitative (PE/DVT) 0.89 FEU/ug/m 0.27-0.49 [facility] Comment on above: D-Dimer ELEVATED (>0 .49): Additional studies and clinicalassessments are indicated to conclude diagnosis of:Deep Vein Thrombosis (DVT) or Pulmonary Embolism (PE) Estimated Creatinine Clearance Calc 45.63 ml/min [facility] Estimated GFR (MDRD) Amer 79 mL/min >60 [facility] Comment on above: GFR Calc Estimated GFR (MDRD) Non-Af Amer 65 mL/min >60 [facility] Comment on above: Non- GFR Calc Troponin I High Sensitivity 6 pg/mL 3.0-78.0 [facility] Comment on above: Please Note: New Angela t Units and Gender Specific Reference Ranges. For more information see Policy Stat Procedure [place] High Sensitivity Troponin (TNIH) and attachments. RBC Auto (Bld) [#/Vol]Ordere d By: Lionel Ocasio on 07-03-2023 RBC (Bld) [#/Vol] 4.76 10*6/uL 4.6-6.2 [facility] Serum or plasma calcium zac urement (mass/volume)Ordered By: Lionel Ocasio on 07-03-2023 Calcium [Mass/Vol] 9.1 mg/dL 8.5-10.1 [facility] Serum or plasma creatinine m easurement (mass/volume)Ordered By: Lionel Ocasio on 07-03-2023 Creatinine [Mass/Vol] 1.18 mg/dL 0.70-1.30 [facility] Comment on above: The validity of the calculated GFR & GFRAA in patients over 70 years has not been determined. Clinical correlation is essential. Serum or plasma urea nitroge n measurement (mass/volume)Ordered By: Lionel Ocasio on 07-03-2023 Urea nitrogen [Mass/Vol] 19 mg/dL 7-18 [facility] Thin prep Papanicolaou smear with manual screeningOrdered By: Lionel Ocasio on 07-03-2023 Thin prep Papanicolaou smear with manual screening 3.7 g/dL 3.2-5.0 [facility] Thin prep Papanicolaou smear with manual screening 97 U/L 15-37 [facility] Thin prep Papanicolaou smear with manual screening 4 5-15 [facility] Basophil percentageOrdered B y: Gosia Delaney on 04-12-2023 Bilirubin [Mass/Vol] 0.50 mg/dL 0.20-1.00 [facility] Comment on above: For patients on eltr ombopag therapy, use of Dimension [place] TBIL is not recommended. Chloride [Moles/Vol] 100 mmol/L 98-107 [facility] Cholesterol [Mass/Vol] 175 mg/dL <200 [facility] Comment on above: <200 mg/dL Desirable 200-240 mg/dL Borderline >240 mg/dL High Risk Glucose [Mass/Vol] 111 mg/dL 74-106 [facility] Comment on above: Fasting Glucose resu lt from 100 to 125 mg/dL suggests IMPAIRED HOMEOSTASIS per A.D.A. criteria. Potassium [Moles/Vol] 4.1 mmol/L 3.5-5.1 [facility] Protein [Mass/Vol] 7.3 g/dL 6.4-8.2 [facility] Sodium [Moles/Vol] 135 mmol/L 136-145 [facility] Triglyceride [Mass/Vol] 263 mg/dL <[address] [facility] Comment on above: The drugs N-Acetylcy steine and Metamizole may falsely depress this assay.Serum Triglycerides Reference Interval Normal <150 mg/dL Borderline high 150 - 199 mg/dL High 200 - 499 mg/dL Very High > or = 500 mg/dL Cholesterol in LDL Direct as say [Mass/Vol]Ordered By: Gosia Delaney on 04-12-2023 Cholesterol in LDL [Mass/Vol] 99 mg/dL 0-99 [facility] Comment on above: Performed at: [address] Director: Aquilino Gómez PhD, Phone: [phone] Laboratory - Chemistry and C hemistry - challengeOrdered By: Gosia Delaney on 04-12-2023 ALP [Catalytic activity/Vol] 82 U/L 45-117 [facility] ALT [Catalytic activity/Vol] 37 U/L 16-61 [facility] Amylase [Catalytic activity/Vol] 361 U/L 15-85 [facility] CO2 [Moles/Vol] 24.0 mmol/L 21.0-32.0 [facility] Globulin (S) [Mass/Vol] 3.7 g/dL 2.2-4.[address] [facility] Urea nitrogen/Creatinine [Mass ratio] 10.4 mg/mg 10-20 [facility] - Miscellaneous t estsOrdered By: Gosia Delaney on 04-12-2023 Service comment (Unsp spec) [Interp] TNP [facility] Comment on above: Test not performed No Panel InformationOrdered By: Gosia Delaney on 04-12-2023 Estimated GFR (MDRD) Amer 68 mL/min >60 [facility] Comment on above: GFR Calc Estimated GFR (MDRD) Non-Af Amer 56 mL/min >60 [facility] Comment on above: Non- GFR Calc Serum or plasma albumin zac urement (mass/volume)Ordered By: Gosia Delaney on 04-12-2023 Albumin [Mass/Vol] 3.6 g/dL 3.2-5.0 [facility] Serum or plasma albumin/glob ulin mass ratioOrdered By: Gosia Delaney on 04-12-2023 Albumin/Globulin [Mass ratio] 1.0 {ratio} 0.9-2.4 [facility] Serum or plasma calcium zac urement (mass/volume)Ordered By: Gosia Delaney on 04-12-2023 Calcium [Mass/Vol] 9.4 mg/dL 8.5-10.1 [facility] Serum or plasma cholesterol in HDL measurement (mass/volume)Ordered By: Gosia Delaney on 04-12-2023 Cholesterol in HDL [Mass/Vol] 47 mg/dL >40 [facility] Comment on above: The drugs N-Acetylcy steine and Metamizole may falsely depress this assay. Reference Range HDL <40 mg/dL Low HDL Cholesterol HDL >or= 60 mg/dL High HDL Cholesterol Serum or plasma cholesterol in VLDL measurement (mass/volume)Ordered By: Gosia Delaney on 04-12-2023 Cholesterol in VLDL [Mass/Vol] 53 mg/dL 5-40 [facility] Serum or plasma creatinine m easurement (mass/volume)Ordered By: Gosia Delaney on 04-12-2023 Creatinine [Mass/Vol] 1.34 mg/dL 0.70-1.30 [facility] Comment on above: The validity of the calculated GFR & GFRAA in patients over 70 years has not been determined. Clinical correlation is essential. Serum or plasma low density lipoprotein (LDL) cholesterol measurement (mass/volume)Ordered By: Gosia Delaney on 04-12-2023 Cholesterol in LDL [Mass/Vol] 75 mg/dL 0-130 [facility] Serum or plasma urea nitroge n measurement (mass/volume)Ordered By: Gosia Delaney on 04-12-2023 Urea nitrogen [Mass/Vol] 14 mg/dL 7-18 [facility] Thin prep Papanicolaou smear with manual screeningOrdered By: Gosia Delaney on 04-12-2023 Thin prep Papanicolaou smear with manual screening 24 U/L 15-37 [facility] Thin prep Papanicolaou smear with manual screening 11 5-15 [facility] Basophil percentageOrdered B y: Gosia Delaney on 04-05-2023 Bilirubin [Mass/Vol] 0.60 mg/dL 0.20-1.00 [facility] Comment on above: For patients on eltr ombopag therapy, use of Dimension [place] TBIL is not recommended. Chloride [Moles/Vol] 102 mmol/L 98-107 [facility] Glucose [Mass/Vol] 105 mg/dL 74-106 [facility] Comment on above: Fasting Glucose resu lt from 100 to 125 mg/dL suggests IMPAIRED HOMEOSTASIS per A.D.A. criteria. Potassium [Moles/Vol] 4.3 mmol/L 3.5-5.1 [facility] Protein [Mass/Vol] 7.3 g/dL 6.4-8.2 [facility] Sodium [Moles/Vol] 137 mmol/L 136-145 [facility] - Chemistry and C hemistry - challengeOrdered By: Gosia Delaney on 04-05-2023 ALP [Catalytic activity/Vol] 122 U/L 45-117 [facility] ALT [Catalytic activity/Vol] 113 U/L 16-61 [facility] CO2 [Moles/Vol] 28.0 mmol/L 21.0-32.0 [facility] Globulin (S) [Mass/Vol] 3.9 g/dL 2.2-4.2 [facility] Urea nitrogen/Creatinine [Mass ratio] 6.9 mg/mg 10-20 [facility] No Panel InformationOrdered By: Gosia Delaney on 04-05-2023 Estimated GFR (MDRD) Amer 70 mL/min >60 [facility] Comment on above: GFR Calc Estimated GFR (MDRD) Non-Af Amer 58 mL/min >60 [facility] Comment on above: Non- GFR Calc Serum or plasma albumin zac urement (mass/volume)Ordered By: Gosia Delaney on 04-05-2023 Albumin [Mass/Vol] 3.4 g/dL 3.2-5.0 [facility] Serum or plasma albumin/glob ulin mass ratioOrdered By: Gosia Delaney on 04-05-2023 Albumin/Globulin [Mass ratio] 0.9 {ratio} 0.9-2.4 [facility] Serum or plasma calcium zac urement (mass/volume)Ordered By: Gosia Delaney on 04-05-2023 Calcium [Mass/Vol] 9.1 mg/dL 8.5-10.1 [facility] Serum or plasma creatinine m easurement (mass/volume)Ordered By: Gosia Delaney on 04-05-2023 Creatinine [Mass/Vol] 1.31 mg/dL 0.70-1.30 [facility] Comment on above: The validity of the calculated GFR & GFRAA in patients over 70 years has not been determined. Clinical correlation is essential. Serum or plasma urea nitroge n measurement (mass/volume)Ordered By: Gosia Delaney on 04-05-2023 Urea nitrogen [Mass/Vol] 9 mg/dL 7-18 [facility] Thin prep Papanicolaou smear with manual screeningOrdered By: Gosia Delaney on 04-05-2023 Thin prep Papanicolaou smear with manual screening 45 U/L 15-37 [facility] Thin prep Papanicolaou smear with manual screening 7 5-15 [facility] Absolute lymphocyte countOrd ered By: Gosia Delaney on 03-29-2023 Lymphocytes Auto (Unsp spec) [#/Vol] 1.47 10*3/uL 0.83-4.51 [facility] Basophil percentageOrdered B y: Gosia Delaney on 03-29-2023 Basophils/100 WBC (Bld) 0.5 % 0-[address] [facility] Bilirubin [Mass/Vol] 1.90 mg/dL 0.20-1.00 [facility] Comment on above: For patients on eltr ombopag therapy, use of Dimension [place] TBIL is not recommended. Chloride [Moles/Vol] 95 mmol/L 98-107 [facility] Eosinophils/100 WBC (Bld) 1.1 % 0-5 [facility] Glucose [Mass/Vol] 129 mg/dL 74-106 [facility] Comment on above: Fasting Glucose resu lt greater than or equal to 126 mg/dL suggests DIABETES MELLITUS per A.D.A. criteria. Neutrophils (Bld) [#/Vol] 4.4 10*3/uL 2.0-7.7 [facility] Neutrophils/100 WBC (Bld) 69.4 % 47-70 [facility] Potassium [Moles/Vol] 4.1 mmol/L 3.5-5.1 [facility] Comment on above: Slight Hemolysis, Re sult may be falsely increased. Protein [Mass/Vol] 6.9 g/dL 6.4-8.2 [facility] Sodium [Moles/Vol] 129 mmol/L 136-145 [facility] WBC (Bld) [#/Vol] 6.3 10*3/uL 4.4-11.0 [facility] Blood erythrocytes count (nu mber/volume)Ordered By: Gosia Delaney on 03-29-2023 RBC (Bld) [#/Vol] 4.55 10*6/uL 4.6-6.2 [facility] Blood hemoglobin measurement (mass/volume)Ordered By: Gosia Delaney on 03-29-2023 Hemoglobin (Bld) [Mass/Vol] 14.7 g/dL 13.0-16.5 [facility] Blood lymphocytes/100 leukoc ytesOrdered By: Gosia Delaney on 03-29-2023 Lymphocytes/100 WBC (Bld) 23.2 % 19-41 [facility] Blood monocytes/100 leukocyt esOrdered By: Gosia Delaney on 03-29-2023 Monocytes/100 WBC (Bld) 5.5 % 0-10 [facility] Blood platelet mean volumeOr dered By: Gosia Delaney on 03-29-2023 Platelet mean volume (Bld) [Entitic vol] 11.2 fL 6.2-12.0 [facility] Determination of erythrocyte mean corpuscular volume (MCV)Ordered By: Gosia Delaney on 03-29-2023 MCV (RBC) [Entitic vol] 94.3 fL 80-[address] [facility] Erythrocyte sedimentation ra teOrdered By: Gosia Delaney on 03-29-2023 ESR (Bld) [Velocity] mm/h 0-20 [facility] Hematocrit Auto (Bld) [Volum e fraction]Ordered By: Gosia Delaney on 03-29-2023 Hematocrit (Bld) [Volume fraction] 42.9 % 40-54 [facility] Laboratory - Chemistry and C hemistry - challengeOrdered By: Gosia Delaney on 03-29-2023 ALP [Catalytic activity/Vol] 181 U/L 45-117 [facility] ALT [Catalytic activity/Vol] 491 U/L 16-61 [facility] CO2 [Moles/Vol] 21.0 mmol/L 21.0-32.0 [facility] Globulin (S) [Mass/Vol] 3.2 g/dL 2.2-4.[address] [facility] Lipase [Catalytic activity/Vol] 30 U/L 13-75 [facility] Comment on above: Please note:LIPASE r evised reference range effective 22. New Lipase methodology. Expected to produce lower values than the previous assay method. NEW Reference Range: 13 - 75 U/L Magnesium [Mass/Vol] 2.2 mg/dL 1.6-2.6 [facility] Comment on above: Slight Hemolysis, Re sult may be falsely increased. Urea nitrogen/Creatinine [Mass ratio] 13.5 mg/mg 10-20 [facility] Laboratory - Hematology and Cell countsOrdered By: Gosia Delaney on 03-29-2023 Erythrocyte distribution width (RBC) [Entitic vol] 47.6 fL 35.1-43.9 [facility] Erythrocyte distribution width (RBC) [Ratio] 13.6 % 11.6-14.6 [facility] Immature granulocytes/100 WBC (Bld) 0.300 % 0.0-0.9 [facility] Comment on above: IG% - Immature Granu locytes (promyelocytes, myelocytes and metamyelocytes) > 1% indicates that a LEFT SHIFT is Present. MCH (RBC) [Entitic mass] 32.3 pg 27.0-32.0 [facility] Nucleated RBC/100 WBC (Bld) [Ratio] 0 % 0-5 [facility] MCHC Auto (RBC) [Mass/Vol]Or dered By: Gosia Delaney on 03-29-2023 MCHC (RBC) [Mass/Vol] 34.3 g/dL 32-36 [facility] No Panel InformationOrdered By: Gosia Delaney on 03-29-2023 Estimated GFR (MDRD) Amer 61 mL/min >60 [facility] Comment on above: GFR Calc Estimated GFR (MDRD) Non-Af Amer 50 mL/min >60 [facility] Comment on above: Non- GFR Calc Platelets bldOrdered By: Julia Delaney on 03-29-2023 Platelets (Bld) [#/Vol] 160 10*3/uL 150-450 [facility] Serum or plasma C reactive p rotein measurement (mass/volume)Ordered By: Gosia Delaney on 03-29-2023 CRP [Mass/Vol] mg/L 0.0-3.0 [facility] Comment on above: C-Reactive Protein ( CRP) provides useful information for thediagnosis, therapy and monitoring of inflammatory processesand associated diseases. For the evaluation of Relative Riskfor Cardiovascular Disease, a High Sensitivity CRP (HSCRP)should be ordered. Serum or plasma albumin zac urement (mass/volume)Ordered By: Gosia Delaney on 03-29-2023 Albumin [Mass/Vol] 3.7 g/dL 3.2-5.0 [facility] Serum or plasma albumin/glob ulin mass ratioOrdered By: Gosia Delaney on 03-29-2023 Albumin/Globulin [Mass ratio] 1.2 {ratio} 0.9-2.4 [facility] Serum or plasma calcium zac urement (mass/volume)Ordered By: Gosia Delaney on 03-29-2023 Calcium [Mass/Vol] 8.1 mg/dL 8.5-10.1 [facility] Serum or plasma creatinine m easurement (mass/volume)Ordered By: Gosia Delaney on 03-29-2023 Creatinine [Mass/Vol] 1.48 mg/dL 0.70-1.30 [facility] Comment on above: The validity of the calculated GFR & GFRAA in patients over 70 years has not been determined. Clinical correlation is essential. Serum or plasma urea nitroge n measurement (mass/volume)Ordered By: Gosia Delaney on 03-29-2023 Urea nitrogen [Mass/Vol] 20 mg/dL 7-18 [facility] Thin prep Papanicolaou smear with manual screeningOrdered By: Gosia Delaney on 03-29-2023 Thin prep Papanicolaou smear with manual screening 757 U/L 15-37 [facility] Comment on above: Slight Hemolysis, Re sult may be falsely increased. Thin prep Papanicolaou smear with manual screening 13 5-15 [facility] Basophil percentageOrdered B y: Gosia Delaney on 12-04-2022 Bilirubin [Mass/Vol] 0.50 mg/dL 0.20-1.00 [facility] Comment on above: For patients on eltr ombopag therapy, use of Dimension [place] TBIL is not recommended. Chloride [Moles/Vol] 103 mmol/L 98-107 [facility] Cholesterol [Mass/Vol] 167 mg/dL <200 [facility] Comment on above: <200 mg/dL Desirable 200-240 mg/dL Borderline >240 mg/dL High Risk Glucose [Mass/Vol] 85 mg/dL 74-106 [facility] Potassium [Moles/Vol] 3.7 mmol/L 3.5-5.1 [facility] Protein [Mass/Vol] 7.3 g/dL 6.4-8.2 [facility] Sodium [Moles/Vol] 138 mmol/L 136-145 [facility] Triglyceride [Mass/Vol] 335 mg/dL <[address] [facility] Comment on above: The drugs N-Acetylcy steine and Metamizole may falsely depress this assay.Serum Triglycerides Reference Interval Normal <150 mg/dL Borderline high 150 - 199 mg/dL High 200 - 499 mg/dL Very High > or = 500 mg/dL Laboratory - Chemistry and C hemistry - challengeOrdered By: Gosia Delaney on 12-04-2022 ALP [Catalytic activity/Vol] 109 U/L 45-117 [facility] ALT [Catalytic activity/Vol] 46 U/L 16-61 [facility] CO2 [Moles/Vol] 27.0 mmol/L 21.0-32.0 [facility] Globulin (S) [Mass/Vol] 3.6 g/dL 2.2-4.[address] [facility] Urea nitrogen/Creatinine [Mass ratio] 7.0 mg/mg 10-20 [facility] No Panel InformationOrdered By: Gosia Delaney on 12-04-2022 Estimated GFR (MDRD) Amer 113 mL/min >60 [facility] Comment on above: GFR Calc Estimated GFR (MDRD) Non-Af Amer 93 mL/min >60 [facility] Comment on above: Non- GFR Calc Prostate Specific Antigen Screen 0.46 ng/mL 0.00-4.00 [facility] Comment on above: This test was perfor med using the TPSA assay method for [email or web address] chemistry system. Values obtained with differentassay methods cannot be used interchangably.When changing PSA assays in the course of monitoring apatient, additional sequential testing should be carriedout to confirm baseline values. Thyroid Stimulating Hormone (TSH) 1.60 uIU/mL 0.358-3.74 [facility] Urine Microalbumin/Creatinine Ratio 15.5 mg/g CRE <30 [facility] Serum or plasma albumin zac urement (mass/volume)Ordered By: Gosia Delaney on 12-04-2022 Albumin [Mass/Vol] 3.7 g/dL 3.2-5.0 [facility] Serum or plasma albumin/glob ulin mass ratioOrdered By: Gosia Delaney on 12-04-2022 Albumin/Globulin [Mass ratio] 1.0 {ratio} 0.9-2.4 [facility] Serum or plasma calcium zac urement (mass/volume)Ordered By: Gosia Delaney on 12-04-2022 Calcium [Mass/Vol] 8.7 mg/dL 8.5-10.1 [facility] Serum or plasma cholesterol in HDL measurement (mass/volume)Ordered By: Gosia Delaney on 12-04-2022 Cholesterol in HDL [Mass/Vol] 55 mg/dL >40 [facility] Comment on above: The drugs N-Acetylcy steine and Metamizole may falsely depress this assay. Reference Range HDL <40 mg/dL Low HDL Cholesterol HDL >or= 60 mg/dL High HDL Cholesterol Serum or plasma cholesterol in VLDL measurement (mass/volume)Ordered By: Gosia Delaney on 12-04-2022 Cholesterol in VLDL [Mass/Vol] 67 mg/dL 5-40 [facility] Serum or plasma creatinine m easurement (mass/volume)Ordered By: Gosia Delaney on 12-04-2022 Creatinine [Mass/Vol] 0.86 mg/dL 0.70-1.30 [facility] Comment on above: The validity of the calculated GFR & GFRAA in patients over 70 years has not been determined. Clinical correlation is essential. Serum or plasma low density lipoprotein (LDL) cholesterol measurement (mass/volume)Ordered By: Gosia Delaney on 12-04-2022 Cholesterol in LDL [Mass/Vol] 45 mg/dL 0-130 [facility] Serum or plasma urea nitroge n measurement (mass/volume)Ordered By: Gosia Delaney on 12-04-2022 Urea nitrogen [Mass/Vol] 6 mg/dL 7-18 [facility] Thin prep Papanicolaou smear with manual screeningOrdered By: Gosia Delaney on 12-04-2022 Thin prep Papanicolaou smear with manual screening 43 U/L 15-37 [facility] Thin prep Papanicolaou smear with manual screening 8 5-15 [facility] Thin prep Papanicolaou smear with manual screening 11.3 mg/L NO RANGE EST. [facility] Urine creatinine measurement (mass/volume)Ordered By: Gosia Delaney on 12-04-2022 Creatinine (U) [Mass/Vol] 73.10 mg/dL NO RANGE EST. [facility] Absolute lymphocyte countOrd ered By: Dr. Delaney on 06-04-2022 Lymphocytes Auto (Unsp spec) [#/Vol] 1.97 10*3/uL 0.83-4.51 [facility] Basophil percentageOrdered B y: Dr. Delaney on 06-04-2022 Basophils/100 WBC (Bld) 0.8 % 0-[address] [facility] Bilirubin [Mass/Vol] 0.60 mg/dL 0.20-1.00 [facility] Comment on above: For patients on eltr ombopag therapy, use of Dimension [place] TBIL is not recommended. Chloride [Moles/Vol] 101 mmol/L 98-107 [facility] Cholesterol [Mass/Vol] 248 mg/dL <200 [facility] Comment on above: <200 mg/dL Desirable 200-240 mg/dL Borderline >240 mg/dL High Risk Eosinophils/100 WBC (Bld) 6.3 % 0-5 [facility] Glucose [Mass/Vol] 106 mg/dL 74-106 [facility] Comment on above: Fasting Glucose resu lt from 100 to 125 mg/dL suggests IMPAIRED HOMEOSTASIS per A.D.A. criteria. Neutrophils (Bld) [#/Vol] 4.0 10*3/uL 2.0-7.7 [facility] Neutrophils/100 WBC (Bld) 56.1 % 47-70 [facility] Potassium [Moles/Vol] 4.2 mmol/L 3.5-5.1 [facility] Protein [Mass/Vol] 7.2 g/dL 6.4-8.2 [facility] Sodium [Moles/Vol] 139 mmol/L 136-145 [facility] Triglyceride [Mass/Vol] 543 mg/dL <[address] [facility] Comment on above: The drugs N-Acetylcy steine and Metamizole may falsely depress this assay. TRIGLYCERIDE IS GREATER THAN 400 mg/dL. LDL RESULT IS INVALID AND WILL NOT BE REPORTED.Serum Triglycerides Reference Interval Normal <150 mg/dL Borderline high 150 - 199 mg/dL High 200 - 499 mg/dL Very High > or = 500 mg/dL WBC (Bld) [#/Vol] 7.1 10*3/uL 4.4-11.0 [facility] Blood erythrocytes count (nu mber/volume)Ordered By: Dr. Delaney on 06-04-2022 RBC (Bld) [#/Vol] 4.77 10*6/uL 4.6-6.2 [facility] Blood hemoglobin measurement (mass/volume)Ordered By: Dr. Delaney on 06-04-2022 Hemoglobin (Bld) [Mass/Vol] 15.3 g/dL 13.0-16.5 [facility] Blood lymphocytes/100 leukoc ytesOrdered By: Dr. Delaney on 06-04-2022 Lymphocytes/100 WBC (Bld) 27.7 % 19-41 [facility] Blood monocytes/100 leukocyt esOrdered By: Dr. Delaney on 06-04-2022 Monocytes/100 WBC (Bld) 8.7 % 0-10 [facility] Blood platelet mean volumeOr dered By: Dr. Delaney on 06-04-2022 Platelet mean volume (Bld) [Entitic vol] 11.3 fL 6.2-12.0 [facility] Determination of erythrocyte mean corpuscular volume (MCV)Ordered By: Dr. Delaney on 06-04-2022 MCV (RBC) [Entitic vol] 95.8 fL 80-[address] [facility] Hematocrit Auto (Bld) [Volum e fraction]Ordered By: Dr. Delaney on 06-04-2022 Hematocrit (Bld) [Volume fraction] 45.7 % 40-54 [facility] Laboratory - Chemistry and C hemistry - challengeOrdered By: Dr. Delaney on 06-04-2022 ALP [Catalytic activity/Vol] 86 U/L 45-117 [facility] ALT [Catalytic activity/Vol] 47 U/L 16-61 [facility] Amylase [Catalytic activity/Vol] 257 U/L 15-85 [facility] CO2 [Moles/Vol] 28.0 mmol/L 21.0-32.0 [facility] Globulin (S) [Mass/Vol] 3.3 g/dL 2.2-4.[address] [facility] Urea nitrogen/Creatinine [Mass ratio] 10.2 mg/mg 10-20 [facility] - Hematology and Cell countsOrdered By: Dr. Delaney on 06-04-2022 Erythrocyte distribution width (RBC) [Entitic vol] 44.5 fL 35.1-43.9 [facility] Erythrocyte distribution width (RBC) [Ratio] 12.6 % 11.6-14.6 [facility] Immature granulocytes/100 WBC (Bld) 0.400 % 0.0-0.9 [facility] Comment on above: IG% - Immature Granu locytes (promyelocytes, myelocytes and metamyelocytes) > 1% indicates that a LEFT SHIFT is Present. MCH (RBC) [Entitic mass] 32.1 pg 27.0-32.0 [facility] Nucleated RBC/100 WBC (Bld) [Ratio] 0 % 0-5 [facility] MCHC Auto (RBC) [Mass/Vol]Or dered By: Dr. Delaney on 06-04-2022 MCHC (RBC) [Mass/Vol] 33.5 g/dL 32-36 [facility] No Panel InformationOrdered By: Dr. Delaney on 06-04-2022 Estimated GFR (MDRD) Amer 127 mL/min >60 [facility] Comment on above: GFR Calc Estimated GFR (MDRD) Non-Af Amer 105 mL/min >60 [facility] Comment on above: Non- GFR Calc Thyroid Stimulating Hormone (TSH) 2.34 uIU/mL 0.358-3.74 [facility] Urine Microalbumin/Creatinine Ratio 184.4 mg/g CRE <30 [facility] Platelets bldOrdered By: Dr. Delaney on 06-04-2022 Platelets (Bld) [#/Vol] 224 10*3/uL 150-450 [facility] Serum or plasma albumin zac urement (mass/volume)Ordered By: Dr. Delaney on 06-04-2022 Albumin [Mass/Vol] 3.9 g/dL 3.2-5.0 [facility] Serum or plasma albumin/glob ulin mass ratioOrdered By: Dr. Delaney on 06-04-2022 Albumin/Globulin [Mass ratio] 1.2 {ratio} 0.9-2.4 [facility] Serum or plasma calcium zac urement (mass/volume)Ordered By: Dr. Delaney on 06-04-2022 Calcium [Mass/Vol] 9.1 mg/dL 8.5-10.1 [facility] Serum or plasma cholesterol in HDL measurement (mass/volume)Ordered By: Dr. Delaney on 06-04-2022 Cholesterol in HDL [Mass/Vol] 49 mg/dL >40 [facility] Comment on above: The drugs N-Acetylcy steine and Metamizole may falsely depress this assay. Reference Range HDL <40 mg/dL Low HDL Cholesterol HDL >or= 60 mg/dL High HDL Cholesterol Serum or plasma cholesterol in VLDL measurement (mass/volume)Ordered By: Dr. Delaney on 06-04-2022 Cholesterol in VLDL [Mass/Vol] TNP [facility] Comment on above: Test not performed Serum or plasma creatinine m easurement (mass/volume)Ordered By: Dr. Delaney on 06-04-2022 Creatinine [Mass/Vol] 0.78 mg/dL 0.70-1.30 [facility] Comment on above: The validity of the calculated GFR & GFRAA in patients over 70 years has not been determined. Clinical correlation is essential. Serum or plasma low density lipoprotein (LDL) cholesterol measurement (mass/volume)Ordered By: Dr. Delaney on 06-04-2022 Cholesterol in LDL [Mass/Vol] TNP [facility] Comment on above: Test not performed Serum or plasma urea nitroge n measurement (mass/volume)Ordered By: Dr. Delaney on 06-04-2022 Urea nitrogen [Mass/Vol] 8 mg/dL 7-18 [facility] Thin prep Papanicolaou smear with manual screeningOrdered By: Dr. Delaney on 06-04-2022 Thin prep Papanicolaou smear with manual screening 37 U/L 15-37 [facility] Thin prep Papanicolaou smear with manual screening 10 5-15 [facility] Thin prep Papanicolaou smear with manual screening 69.7 mg/L NO RANGE EST. [facility] Urine creatinine measurement (mass/volume)Ordered By: Dr. Delaney on 06-04-2022 Creatinine (U) [Mass/Vol] 37.80 mg/dL NO RANGE EST. [facility] Vital Signs Date Time Vital Sign Value Performing Clinician Facility 11-20-2024 19:01-0400 Body temperature 98.1 [degF] Dr. Gosia Delaney MD Work Phone: [facility] 11-20-2024 19:01-0400 Diastolic blood pressure 81 mm[Hg] Dr. Gosia Delaney MD Work Phone: [facility] 11-20-2024 19:01-0400 Heart rate 86 /min Dr. Gosia Delaney MD Work Phone: [facility] 11-20-2024 19:01-0400 Respiratory rate 16 /min Dr. Gosia Delaney MD Work Phone: [facility] 11-20-2024 19:01-0400 SaO2% (BldA) [Mass fraction] 94 % Dr. Gosia Delaney MD Work Phone: [facility] 11-20-2024 19:01-0400 Systolic blood pressure 172 mm[Hg] Dr. Gosia Delaney MD Work Phone: [facility] 11-20-2024 14:59-0400 Body height 157.[address] Gosia Delaney MD Work Phone: [facility] 11-20-2024 14:59-0400 Body weight 54.[address] Gosia Delaney MD Work Phone: [phone])[phone] [place] [address] 11-20-2024 13:56-0400 Inhaled oxygen flow rate 2 L/min Dr. Gosia Delaney MD Work Phone: 2(432)598-630436 [place] [address] 11-20-2024 08:44-0400 Body mass index (BMI) [Ratio] 21.9 kg/m2 Dr. Gosia Delaney MD Work Phone: 1(640)362-505636 [place] [address] 11-20-2024 00:28-0400 Body temperature 98 [degF] Dr. Gosia Delaney MD Work Phone: 8(798)282-831336 [place] [address] 11-20-2024 00:28-0400 Diastolic blood pressure 79 mm[Hg] Dr. Gosia Delaney MD Work Phone: 5(696)559-002536 [place] [address] 11-20-2024 00:28-0400 Heart rate 57 /min Dr. Gosia Delaney MD Work Phone: 7(559)603-423436 [place] [address] 11-20-2024 00:28-0400 Respiratory rate 18 /min Dr. Gosia Delaney MD Work Phone: 8([phone])[phone] [place] [address] 11-20-2024 00:28-0400 SaO2% (BldA) [Mass fraction] 96 % Dr. Gosia Delaney MD Work Phone: 0(016)[phone] [place] [address] 11-20-2024 00:28-0400 Systolic blood pressure 169 mm[Hg] Dr. Gosia Delnaey MD Work Phone: 7(647)372-027036 [place] [address] 11-19-2024 19:54-0400 Body height 160.[address] Gosia Delaney MD Work Phone: 8(662)208-913936 [place] [address] 11-19-2024 19:54-0400 Body mass index (BMI) [Ratio] 21.9 kg/m2 Dr. Gosia Delaney MD Work Phone: [phone])[phone] [place] [address] 11-19-2024 19:54-0400 Body weight [address] Gosia Delaney MD Work Phone: 4(120)735-803336 [place] [address] 11-08-2024 07:56-0400 Body height 157.[address] Gosia Delaney MD Work Phone: [facility] 11-08-2024 07:56-0400 Body mass index (BMI) [Ratio] 21.4 kg/m2 Dr. Gosia Delaney MD Work Phone: [facility] 11-08-2024 07:56-0400 Body temperature 97.8 [degF] Dr. Gosia Delaney MD Work Phone: [facility] 11-08-2024 07:56-0400 Body weight 53.[address] Gosia Delaney MD Work Phone: [facility] 11-08-2024 07:56-0400 Diastolic blood pressure 64 mm[Hg] Dr. Gosia Delaney MD Work Phone: [facility] 11-08-2024 07:56-0400 Heart rate 59 /min Dr. Gosia Delaney MD Work Phone: [facility] 11-08-2024 07:56-0400 Respiratory rate 15 /min Dr. Gosia Delaney MD Work Phone: [facility] 11-08-2024 07:56-0400 SaO2% (BldA) [Mass fraction] 98 % Dr. Gosia Delaney MD Work Phone: [facility] 11-08-2024 07:56-0400 Systolic blood pressure 144 mm[Hg] Dr. Gosia Delaney MD Work Phone: [facility] 08-30-2023 13:51-0400 Body height 160 cm Mary Carmen Lara MD Work Phone: [facility] 08-30-2023 13:51-0400 Body mass index (BMI) [Ratio] 20.9 kg/m2 Mary Carmen Lara MD Work Phone: [facility] 08-30-2023 13:51-0400 Body weight 53.52 kg Mary Carmen Lara MD Work Phone: [facility] 08-30-2023 13:51-0400 Diastolic blood pressure 90 mm[Hg] Mary Carmen Lara MD Work Phone: [facility] 08-30-2023 13:51-0400 Systolic blood pressure 183 mm[Hg] Mary Carmen Lara MD Work Phone: [facility] 08-25-2023 14:46-0400 Body height 160 cm Jessy Stafford MD Work Phone: [facility] 08-25-2023 14:46-0400 Body temperature 98.29 [degF] Jessy Stafford MD Work Phone: [facility] 08-25-2023 14:46-0400 Body weight 54.16 kg Jessy Stafford MD Work Phone: [facility] 08-25-2023 14:46-0400 Diastolic blood pressure 68 mm[Hg] Jessy Stafford MD Work Phone: [facility] 08-25-2023 14:46-0400 Heart rate 77 /min Jessy Stafford MD Work Phone: [facility] 08-25-2023 14:46-0400 SaO2% (BldA) [Mass fraction] 98 % Jessy Stafford MD Work Phone: [facility] 08-25-2023 14:46-0400 Systolic blood pressure 154 mm[Hg] Jessy Stafford MD Work Phone: [facility] 07-03-2023 14:35-0500 Body temperature 97.9 [degF] Dr. Gosia Delaney Work Phone: [facility] 07-03-2023 14:35-0500 Diastolic blood pressure 66 mm[Hg] Dr. Goisa Delaney Work Phone: [facility] 07-03-2023 14:35-0500 Heart rate 56 /min Dr. Gosia Delaney Work Phone: [facility] 07-03-2023 14:35-0500 Respiratory rate 14 /min Dr. Gosia Delaney Work Phone: [facility] 07-03-2023 14:35-0500 SaO2% (BldA) [Mass fraction] 98 % Dr. Gosia Delaney Work Phone: [facility] 07-03-2023 14:35-0500 Systolic blood pressure 171 mm[Hg] Dr. Gosia Delaney Work Phone: [facility] 07-03-2023 11:50-0500 Body height 157.[address] Gosia Delaney Work Phone: [facility] 07-03-2023 11:50-0500 Body mass index (BMI) [Ratio] 22 kg/m2 Dr. Gosia Delaney Work Phone: [facility] 07-03-2023 11:50-0500 Body weight 54.[address] Gosia Delaney Work Phone: 7([phone] [address] 04-19-2023 07:54-0500 Body height 157.[address] Gosia Delaney Work Phone: 1([phone] [address] 04-19-2023 07:54-0500 Body mass index (BMI) [Ratio] 21.1 kg/m2 Dr. Gosia Delaney Work Phone: [facility] 04-19-2023 07:54-0500 Body temperature 97.8 [degF] Dr. Gosia Delaney Work Phone: [facility] 04-19-2023 07:54-0500 Body weight 52.[address] Gosia Delaney Work Phone: [facility] 04-19-2023 07:54-0500 Diastolic blood pressure 80 mm[Hg] Dr. Gosia Delaney Work Phone: [facility] 04-19-2023 07:54-0500 Heart rate 80 /min Dr. Gosia Delaney Work Phone: [facility] 04-19-2023 07:54-0500 Respiratory rate 17 /min Dr. Gosia Delaney Work Phone: [facility] 04-19-2023 07:54-0500 SaO2% (BldA) [Mass fraction] 99 % Dr. Gosia Delaney Work Phone: [facility] 04-19-2023 07:54-0500 Systolic blood pressure 108 mm[Hg] Dr. Gosia Delaney Work Phone: [facility] 11-02-2022 08:00-0400 Body height 157.[address] Gosia Delaney Work Phone: [facility] 11-02-2022 08:00-0400 Body mass index (BMI) [Ratio] 22 kg/m2 Dr. Gosia Delaney Work Phone: [facility] 11-02-2022 08:00-0400 Body temperature 98 [degF] Dr. Gosia Delaney Work Phone: 2(948)[phone] [address] 11-02-2022 08:00-0400 Body weight 54.[address] Gosia Delaney Work Phone: 3(153)434-129388 [address] 11-02-2022 08:00-0400 Diastolic blood pressure 68 mm[Hg] Dr. Gosia Delaney Work Phone: [facility] 11-02-2022 08:00-0400 Heart rate 72 /min Dr. Gosia Delaney Work Phone: 0(806)[phone] [address] 11-02-2022 08:00-0400 Respiratory rate 16 /min Dr. Gosia Delaney Work Phone: [facility] 11-02-2022 08:00-0400 SaO2% (BldA) [Mass fraction] 99 % Dr. Gosia Delaney Work Phone: [facility] 11-02-2022 08:00-0400 Systolic blood pressure 120 mm[Hg] Dr. Gosia Delaney Work Phone: [facility] Encounters Encounter Date Encounter Type Care Provider Facility Start: 11-22-2024 ambulatory Gosia Delaney Facility:[facility] Start: 11-20-2024 End: 11-23-2024 Evaluation and management of inpatient ADRIANA TERAN Facility:[id number] Start: 11-20-2024 Evaluation and manag ement of inpatient Dr. Yakov Samano MD -Medical Surgical 3 Work Phone: Start: 11-19-2024 Non-patient / Non-visit Dr. Kassandra Samano MD -[facility] Start: 11-19-2024 ambulatory Yakov Muniz lity:[facility] Start: 11-19-2024 End: 11-20-2024 Evaluation and management of inpatient Dr. Yakov Samano MD -Medical Surgical 3 Work Phone: Start: 11-08-2024 End: 11-08-[address] Tuan Foster MD -[facility] Work Phone: Start: 11-08-2024 End: 11-08-[address] Gosia Delaney MD Work Phone: -[facility] Start: 07-12-2024 End: 07-12-[address] Gosia Delaney MD Work Phone: [facility] Work Phone: Start: 07-12-2024 End: 07-12-[address] Tina Sutherland DO -Laboratory, [facility] Office 3rd Okr Start: 07-12-2024 End: 07-12-2024 ambulatory Gosia Delaney Facility:[facility] Start: 06-29-2024 End: 06-29-[address] Gosia Delaney MD -Pulmonary Services/Neurology Work Phone: Start: 06-29-2024 ambulatory Gosia Delaney Facility:[facility] Start: 06-29-2024 End: 06-29-2024 ambulatory Gosia Delaney Facility:[facility] Start: 06-21-2024 End: 06-21-[address] Gosia Delaney MD -Laboratory, [facility] Start: 06-21-2024 End: 06-21-2024 ambulatory Gosia Delaney Facility:[facility] Start: 01-22-2024 ambulatory Gosia Delaney Facility:[facility] Start: 01-19-2024 End: 01-19-2024 ambulatory Gosia Delaney Facility:[facility] Start: 01-17-2024 End: 01-17-2024 ambulatory Gosia Delaney Facility:[facility] Start: 01-14-2024 End: 01-14-2024 ambulatory Gosia Delaney Facility:[facility] Start: 12-20-2023 End: 12-20-2023 ambulatory Gosia Delaney Facility:[facility] Start: 08-30-2023 End: 08-30-2023 ambulatory MARY CARMEN LARA Facility:[facility] Start: 08-30-2023 End: 08-30-2023 Patient encounter procedure Mary Carmen Lara MD Work Phone: [facility] Comment on above: Symptomatic cholelit hiasis (Primary Dx) Start: 08-25-2023 End: 08-25-2023 ambulatory JESSY STAFFORD Facility:[facility] Start: 08-25-2023 End: 08-25-2023 Patient encounter procedure Jessy Stafford MD Work Phone: General Surgery Comment on above: Calculus of gallblad shelby without cholecystitis without obstruction (Primary Dx) Start: 07-06-2023 End: 07-06-[address] Gosia Delaney Work Phone: [facility] Work Phone: Start: 07-06-2023 End: 07-06-[address] Gosia Delaney Work Phone: [facility] Start: 07-03-2023 End: 07-03-2023 Emergency department patient visit Dr. Gosia Delaney Work Phone: [facility]-Emergency Department Work Phone: Start: 06-07-2023 Non-patient / Non-visit Dr. Joni Delaney Work Phone: [facility] Start: 06-07-2023 End: 06-07-[address] Gosia Delaney Work Phone: [facility] Work Phone: Start: 06-07-2023 End: 06-07-[address] Gosia Delaney Work Phone: [facility]-Cardiovascul ar Services Work Phone: Start: 04-19-2023 End: 04-19-[address] Gosia Delaney Work Phone: [facility] Work Phone: Start: 04-12-2023 End: 04-12-2023 ambulatory [facility] Work Phone: Start: 04-12-2023 End: 04-12-2023 [facility] Work [facility]: Start: 04-05-2023 End: 04-05-2023 ambulatory [facility] Work Phone: Start: 04-05-2023 End: 04-05-2023 Patient encounter procedure [facility] Work Phone: Start: 03-29-2023 End: 03-29-2023 ambulatory [facility] Work Phone: Start: 03-29-2023 End: 03-29-2023 Patient encounter procedure [facility] Work Phone: Start: 01-05-2023 End: 01-05-[address] Gosia Delaney Work Phone: [facility] Work Phone: Start: 01-05-2023 End: 01-05-[address] Gosia Delaney Work Phone: [facility] Work Phone: Start: 01-02-2023 End: 01-02-[address] Gos[facility]aney [facility] Work Phone: Start: 12-04-2022 End: 12-04-[address] Gosia Delaney Work Phone: [facility] Work Phone: Start: 12-04-2022 End: 12-04-[address] Gosia Delaney Work Phone: [facility] Start: 11-03-2022 Non-patient / Non-visit Dr. Joni Delaney Work Phone: [facility] Start: 11-03-2022 End: 11-03-[address] Gosia Delaney Work Phone: [facility] Work Phone: Start: 11-03-2022 End: 11-03-[address] Gosia Delaney Work Phone: [facility] Work Phone: Start: 11-02-2022 End: 11-02-[address] Gosia Delaney Work Phone: [facility] Work Phone: Start: 06-04-2022 End: 06-04-[address] Gosia Delaney Work Phone: [facility] Work Phone: Start: 06-04-2022 End: 06-04-[address] Gosia Delaney Work Phone: [facility] Start: 03-03-2022 Non-patient / Non-visit Dr. Joni Delaney Work Phone: [facility] Start: 03-03-2022 End: 03-03-[address] Gosia Delaney Work Phone: [facility] Procedures Date Procedure Procedure Detail Performing Clinician Start: 11-20-[address] Gosia Delaney MD Work Phone: Start: 11-19-[address] Gosia Delaney MD Work Phone: Start: 11-19-2024 Computed tomography of abdomen and pelvis with intravenous contrast Dr. Gosia Delaney MD Work Phone: Start: 11-19-2024 Plain chest X-ray Dr. Pat Delaney MD Work Phone: Start: 11-19-2024 End: 11-20-[address] Gosia Delaney MD Work Phone: Start: 07-03-2023 CT angiography of ch est with contrast Dr. Gosia Delaney Work Phone: Start: 07-03-2023 Plain chest X-ray Dr. Pat Delaney Work Phone: Start: 01-05-[address] Gosia landa Work Phone: Plan of Treatment Date Care Activity Detail Author Start: 12-04-2032 Urine microalbumin profile DTaP,Tdap,Td Vaccine (2 - Td or Tdap) [facility] Start: 12-17-2025 Screening for malignant neoplasm of colon [facility] Start: 11-20-2024 [facility] Start: 11-20-2024 Biopsy/Inj or Needle Placement Biopsy/Inj or Needle Placement [facility] Start: 11-20-2024 [facility] Start: 11-20-2024 Catheterization of vein [facility] Start: 11-20-2024 Oxygen therapy [facility] Start: 11-20-2024 Vital signs measurements [facility] Start: 11-20-2024 Partial thromboplastin time, activated [facility] Start: 11-20-2024 Prothrombin time [facility] Start: 11-20-2024 Triacylglycerol lipase measurement [facility] Start: 11-20-2024 Following clinical pathway protocol [facility] Start: 11-20-2024 Hospital admission, emergency, from emergency room, medical nature [facility] Start: 11-20-2024 Patient discharge [facility] Start: 11-19-2024 Care regimes management [facility] Start: 11-19-2024 Notification of physician [facility] Start: 11-19-2024 Ambulation without limitation [facility] Start: 11-19-2024 Following clinical pathway protocol [facility] Start: 11-19-2024 Vital signs measurements [facility] Start: 11-19-2024 End: 11-19-2024 [facility] Start: 11-19-2024 Admission procedure [facility] Start: 11-19-2024 Ultrasonography of abdomen Abdomen Limited [facility] Start: 11-19-2024 US Abdomen limited [facility] Start: 11-19-2024 End: 11-19-2024 [facility] Start: 07-03-2023 [facility] Start: 07-03-2023 [facility] Start: 05-10-2023 Advance Directive Discussion Advance Directive Discussion [facility] Start: 05-10-2023 Behavioral Health Screening Behavioral Health Screening [facility] Start: 2013 RSV Vaccine (1 - 1-dose 60+ series) RSV Vaccine (1 - 1-dose 60+ series) [facility] Start: 08-04-2003 Shingrix Vaccine (1 of 2) Shingrix Vaccine (1 of 2) [facility] Start: 1998 Diabetes Screening Diabetes Screening [facility] Start: 1998 Screening for malignant neoplasm of colon [facility] Start: 1988 Lipid panel Lipid Screening [facility] Start: 08-04-1971 Hepatitis C screening Hepatitis C Screening [facility] Start: 1955 Abdominal aortic aneurysm screening Abdominal Aortic Aneurysm Screening [facility] Alanine aminotransfe rase [Enzymatic activity/volume] in Serum or Plasma [facility] Albumin [Mass/volume ] in Serum or Plasma [facility] Alkaline phosphatase [Enzymatic activity/volume] in Serum or Plasma [facility] Anion gap in Serum or Plasma [facility] Bilirubin, total measurement [facility] BUN/Creatinine ratio [facility] Calcium [Mass/volume ] in Serum or Plasma [facility] Carbon dioxide, tota l [Moles/volume] in Central venous blood [facility] Creatinine [Mass/vol ume] in Serum or Plasma [facility] Erythrocyte mean cor puscular volume determination [facility] Glucose [Mass/volume ] in Serum or Plasma [facility] Hematocrit [Volume F raction] of Blood [facility] Hemoglobin [Mass/vol ume] in Blood [facility] INR in Blood by Coag ulation assay [facility] Leukocytes [#/volume ] in Blood [facility] Mean corpuscular hem oglobin concentration determination [facility] Mean corpuscular hem oglobin determination [facility] Measurement of renal function [facility] Neutrophil count [facility] Neutrophil percent differential count [facility] Patient Education [facility] Work Phone: Patient referral [facility] Work Phone: Platelets [#/volume] in Blood [facility] Potassium measurement [facility] Red blood cell count [facility] Red cell distributio n width determination [facility] Serum chloride measurement [facility] Sodium measurement [facility] Total protein measurement [facility] Troponin T.cardiac [Mass/volume] in Serum or Plasma by High sensitivity method [facility] Urea nitrogen [Mass/ volume] in Serum or Plasma [facility] US Carotid arteries [facility] US Carotid arteries [facility] Immunizations Immunization Date Immunization Notes Care Provider Fa [facility] 02-01-2024 influenza, seasonal, injectable, preservative free Dr. Gosia Delaney MD Work Phone: [facility] 02-01-2024 Pfizer Covid-19 (Comirnaty) Dr. Gosia Delaney MD Work Phone: [facility] 03-15-2023 Covid (Spikevax) Dr. Gosia ugalde MD Work Phone: [facility] 02-05-2023 influenza, injectabl e, quadrivalent, preservative free Dr. Gosia Delaney MD Work Phone: [facility] 12-04-2022 Pneumococcal Vaccine PCV20 (Prevnar 20) Dr. Gosia Delaney MD Work Phone: [facility] 12-04-2022 tetanus toxoid, redu uziel diphtheria toxoid, and acellular pertussis vaccine, adsorbed Dr. Gosia Delaney MD Work Phone: [facility] 02-10-2022 Covid Moderna Bivale nt Booster Dr. Gosia Delaney MD Work Phone: [facility] 02-06-2022 influenza, injectabl e, quadrivalent, preservative free Dr. Gosia Delaney MD Work Phone: [facility] 08-22-2021 Covms (Moderna) Dr. Gosia ramirez MD Work Phone: [facility] 03-27-2021 Covms (Moderna) Dr. Gosia ramirez MD Work Phone: [facility] 02-07-2021 influenza, injectabl e, quadrivalent, preservative free Dr. Gosia Delaney MD Work Phone: [facility] 08-07-2020 Covms (Moderna) Dr. Gosia ramirez MD Work Phone: [facility] 07-10-2020 Covms (Moderna) Dr. Gosia ramirez MD Work Phone: [facility] 02-02-2020 influenza, injectabl e, quadrivalent, preservative free Dr. Gosia Delaney MD Work Phone: [facility] 02-24-2019 influenza, injectabl e, quadrivalent, preservative free Dr. Gosia Delaney MD Work Phone: [facility] 09-13-2018 pneumococcal polysaccharide vaccine, [address] Gosia Delaney MD Work Phone: [facility] 02-26-2017 influenza, injectabl e, quadrivalent, preservative free Dr. Gosia Delaney MD Work Phone: [facility] 08-11-2016 pneumococcal conjuga te vaccine, [address] Gosia Delaney MD Work Phone: [facility] 11-18-2012 pneumococcal polysaccharide vaccine, [address] Gosia Delaney MD Work Phone: [facility] Payers Date Payer Category Payer Self-pay [id number] 2018 Medicare MEDICARE MEDICAR E A AND B [id number] 2018-Present [phone] [address] [address] [place] [address] Medicare [id number] 2018 Unknown ANTHEM ANTHEM ME DICARE SUPPLEMENT [id number] 2018-Present [phone] [address] [place] [address] Indemnity [id number] 2018 Medicare [id number] 2016 Unknown [employer]ARE [id number] 2013 Unknown [id number] Unknown [facility] [id number] Unknown [id number] Unknown [id number] Unknown [id number] Unknown [id number] Unknown [id number] Unknown [id number] Unknown [id number] Unknown [id number] Unknown [id number] Unknown [id number] Unknown [id number] Unknown [id number] Unknown [id number] Unknown [id number] Social History Date Type Detail Facility Start: 02-02-2022 End: 07-03-2023 Tobacco smoking status ALIS Unknown if ever smoked [facility] Start: 1955 Sex Assigned At Male [facility] Start: 08-25-2023 End: 11-20-2024 Tobacco smoking status ALIS Smokes tobacco daily [facility] History of tobacco use Cigarette Smoker [facility] Start: 08-25-2023 End: 08-30-2023 Cigarettes smoked current (pack per day) - Reported 0.8 [facility] Start: 08-25-2023 End: 08-30-2023 Tobacco use and exposure Smokeless tobacco non-user [facility] Start: 08-25-2023 End: 08-30-2023 Alcohol intake Current drinker of alcohol (finding) [facility] Start: 08-25-2023 End: 08-30-2023 Tobacco use panel [facility] National Score (1-10 0), lower number is lower risk 47 [facility] Start: 08-25-2023 Alcohol Comment [facility] Start: 1955 Sex Assigned At Not on file [facility] Start: 07-26-2024 Sex Male (finding) [facility] Functional Status Date Assessment Result Facility 11-20-2024 Functional status Bedrest [facility] Work Phone: Mental Status Date Assessment Result Facility 11-20-2024 Cognitive function Unable to Comprehend [facility] Work Phone: 11-20-2024 Cognitive function Appropriate;Cooperativ e [facility] Work Phone: 11-19-2024 Cognitive function Level Of Cons ciousness Awake;Alert;Appropriate [facility] Work Phone: 07-03-2023 Cognitive function Awake;Alert;A ppropriate;Follow s Commands [facility] Work Phone: Clinical Notes 07-03-2023 to 11-23-2024 Note Date & Type Note Facility 11-23-2024 Note HNO ID: [id number] Author: JUSTIN VILLAGOMEZ LSW Service: Care Management Author Type: Psychological Stress Evaluator Type: Care Mgt Progress Note Filed: 11/23/2024 15:21 Note Text: CARE MANAGEMENT DISCHARGE NOTE SERVICE DATE: November 23, 2024 SERVICE TIME: 1519 Admission Date: 11/20/2024 LOS: 3 days Discharge Arrangement Discharge Arrangement: Home with Relative Caregiver Assessment Caregiver is ready, willing and able to meet the patient's needs as recommended by the inter-professional team: Yes Name of Caregiver: Rocio Kirk - spouse Transportation Arrangements Transportation Arrangements: Car Date of Trip: 11/23/24 Destination: HOME Additional Information: Pt discharge to home this date via private car. Confirmed with pt's spouse she feels comfortable doing pt's drain care and she is declining C services No additional needs noted and pt and spouse are in agreement with discharge plan and date SIGNATURE: YOVANY Walker PATIENT NAME: Fahad Kirk DATE: November 23, 2024 TIME: 3:19 PM [facility] 11-23-2024 Note HNO ID: [id number] Author: KERWIN AGUILAR DO Service: Hospital Medicine Author Type: Physician Type: Progress Notes Filed: 11/23/2024 12:22 Note Text: Documentation Query Please clarify the Diagnosis associated with clinical indicators Metabolic Encephalopathy This document will become part of the patient's medical record. [facility] 11-23-2024 Note HNO ID: [id number] Author: KERWIN AGUILAR DO Service: Hospital Medicine Author Type: Physician Type: Progress Notes Filed: 11/23/2024 12:22 Note Text: Documentation Query Please clarify sepsis diagnosis Sepsis Ruled In This document will become part of the patient's medical record. [facility] 11-23-2024 Note HNO ID: [id number] Author: ROBERTO RAMON MD Service: General Surgery Author Type: Physician Type: Plan of Care Filed: 11/23/2024 08:32 Note Text: Patient to be sent home with cholecystostomy tube. Will order home health for flushing. If the family decides they do not prefer home health that is fine. I need to see him back after a cholangiogram has been performed. It has been ordered. Will sign off, please call with questions. [facility] 11-22-2024 Note HNO ID: [id number] Author: KERWIN AGUILAR DO Service: Hospital Medicine Author Type: Physician Type: Progress Notes Filed: 11/22/2024 15:08 Note Text: PROGRESS NOTE SERVICE DATE: 11/22/2024 SERVICE TIME: 3:06 PM PRIMARY SERVICE: Internal Medicine CHIEF COMPLAINT: Evaluation of displaced cholecystostomy tube INTERVAL HPI: Patient seen and examined, discussed with house staff and RN. Per nursing patient remains confused. BP 169/73 Pulse 86 Temp (Src) 98.1 (Oral) Resp 14 Ht 5' 2 (1.58m) Wt 120 lb 5.9 oz (54.6kg) SpO2 92% BMI 22.01 kg/(m2). O2 Therapy: Room Air PHYSICAL EXAM: General: alert, resting comfortably Neck: supple, no hepatojugular reflux or jugular venous distention, no carotid bruits Lungs: clear to auscultation bilaterally, no wheezing, rales, or rhonchi Cardiac: regular rate and rhythm, normal S1 and S2, no murmurs, gallops, or rubs Abdomen: cholecystostomy tube in place, soft, nontender, nondistended, bowel sounds present Extremities: no edema, cyanosis, or clubbing Skin: no rashes or breakdown Lymphatic: no cervical or supraclavicular lymphadenopathy Neurologic: cranial nerves II-XII are grossly intact Psychiatry: confused Current Facility-Administered Medications Medication Dose Route Frequency NaCl 0.9% iv flush bag 20 mL INTRAVENOUS PRN aluminum-magnesium hydroxide-simethicone 200-200-20 mg/5 mL 30 mL 30 mL ORAL DAILY PRN ondansetron 4 mg tab(s) (ZOFRAN) 4 mg ORAL q 6 H PRN Or ondansetron (PF) 4 mg injection (ZOFRAN) 4 mg INTRAVENOUS q 6 H PRN polyethylene glycol 3350 17 g packet 17 g ORAL DAILY PRN acetaminophen 650 mg tab(s) (TYLENOL) 650 mg ORAL q 6 H PRN morphine 2 mg injection 2 mg INTRAVENOUS q 4 H PRN piperacillin-tazobactam iv piggyback 3.375 g in dextrose (iso-osmotic) 50 mL (ZOSYN) 3.375 g INTRAVENOUS q 6 H thiamine 100 mg tab(s) (VITAMIN B1) 100 mg ORAL DAILY multivitamin-ferrous fumarate-folic acid 1 tablet (CENTRUM) 1 tablet ORAL DAILY folic acid 1 mg tab(s) 1 mg ORAL DAILY PHENobarbital 64.8 mg tab(s) 64.8 mg ORAL TID PRN pantoprazole DR 40 mg tab(s) (PROTONIX) 40 mg ORAL DAILY (6 AM) haloperidol 3 mg tab(s) (HALDOL) 3 mg ORAL AT BEDTIME QUEtiapine 12.5 mg tab(s) (SEROquel) 12.5 mg ORAL q 8 H PRN atorvastatin 40 mg tab(s) (LIPITOR) 40 mg ORAL AT BEDTIME levothyroxine 25 mcg tab(s) (SYNTHROID) 25 mcg ORAL BEFORE BREAKFAST DAILY potassium citrate ER 1,080 mg tab(s) (UROCIT-K) 1,080 mg ORAL DAILY propranolol ER 60 mg cap(s) (INDERAL LA) 60 mg ORAL DAILY valsartan 40 mg tab(s) (DIOVAN) 40 mg ORAL DAILY aspirin 81 mg chewable tab(s) 81 mg ORAL DAILY fentaNYL 50 mcg/mL 25-50 mcg injection (SUBLIMAZE) 25-50 mcg INTRAVENOUS q 10 MIN PRN ondansetron 4 mg tab(s) (ZOFRAN) 4 mg ORAL q 6 H PRN Or ondansetron (PF) 4 mg injection (ZOFRAN) 4 mg INTRAVENOUS q 6 H PRN sodium chloride 0.9 % (flush) 10 mL (BD POSIFLUSH) 10 mL INTRAVENOUS q 48 HR potassium chloride ER 40 mEq tab(s) (KLOR-CON) 40 mEq ORAL ONCE DATA: WBC (k/uL) Date Value 11/22/2024 8.14 RBC (m/uL) Date Value 11/22/2024 3.52 (L) Hemoglobin (g/dL) Date Value 11/22/2024 11.2 (L) Hematocrit (%) Date Value 11/22/2024 32.0 (L) MCV (fL) Date Value 11/22/2024 90.9 MCH (pg) Date Value 11/22/2024 31.8 MCHC (g/dL) Date Value 11/22/2024 35.0 RDW-CV (%) Date Value 11/22/2024 13.5 Platelet Count (k/uL) Date Value 11/22/2024 141 (L) MPV (fL) Date Value 11/22/2024 10.5 Glucose (mg/dL) Date Value 11/22/2024 114 (H) BUN (mg/dL) Date Value 11/22/2024 8 Creatinine (mg/dL) Date Value 11/22/2024 0.86 Sodium (mmol/L) Date Value 11/22/2024 140 Potassium (mmol/L) Date Value 11/22/2024 3.2 (L) Chloride (mmol/L) Date Value 11/22/2024 107 CO2 (mmol/L) Date Value 11/22/2024 25 Protein, Total (g/dL) Date Value 11/22/2024 5.6 (L) Albumin (g/dL) Date Value 11/22/2024 2.7 (L) Calcium, Total (mg/dL) Date Value 11/22/2024 8.1 (L) Alkaline Phosphatase (U/L) Date Value 11/22/2024 60 Bilirubin, Total (mg/dL) Date Value 11/22/2024 1.0 AST (U/L) Date Value 11/22/2024 30 ALT (U/L) Date Value 11/22/2024 54 ASSESSMENT AND PLAN: Cholecystitis Patient initially taken to the [facility] ED for abdominal pain CT abdomen showed a hydropic gallbladder containing radiodense stones with marked wall thickening and pericholecystic fluid in addition to inflammatory stranding Follow-up ultrasound showed distended gallbladder with cholelithiasis, wall thickening, and pericholecystic fluid Cholecystostomy tube placed there but pulled out by patient Patient transferred here to [facility] surgery is following New cholecystostomy tube placed yesterday in IR Continue parenteral antibiotic therapy via IV Zosyn 3.375 g every 6 hours Continue IV morphine 2 mg every 4 PRN for pain Encephalopathy vs. EtOH withdrawal vs. Dementia Patient confused at the outlying hospital and p (more content not included)... [facility] 11-22-2024 Note HNO ID: [id number] Author: JUSTIN VILLAGOMEZ LSW Service: Care Management Author Type: Psychological Stress Evaluator Type: Care Mgt Initial Assessment Filed: 11/22/2024 11:12 Note Text: CARE MANAGEMENT: ASSESSMENT AND DISCHARGE PLAN SERVICE DATE: November 22, 2024 SERVICE TIME: 1055 PCP: Gosia Delaney MD Primary Contact: Extended Emergency Contact Information Primary Emergency Contact: Rocio Kirk Address: [address] [place] [address] Mobile Relation: Spouse Admission Status: Inpatient Insurance Provider: MEDICARE A AND B Discharge Planning requested by: Department Practice Potential Transition Plans Home, To Be Determined Advance Directives Current Advance Directive: Health Care Power of Vocational Teacher Current Living Arrangements and Support Lives with: Spouse/significant other Type of Residence: Private Residence (House) Does the patient have to climb stairs at home?: Yes, stairs outside the home Support: Spouse/significant other, Children How do you manage to accomplish the following: Independent: Ambulation, Bathe/Shower, Dress, Meals/Meal Prep, Going to the bathroom, Medication Management, Transportation to appointments/community Current Services/Equipment Current Post-Acute Service(s): None Discharge Planning Patient Goal(s): Be able to go home, General wellness, Other: See Comment Patient's Other Post-Acute Care Goal(s): less confusion Shannock of Choice Explained: Shannock of Choice Given: No Reason Not Given: Unable to complete with this assessment - revisit Are you interested in bedside delivery of your medications? No Discharge Planning Participant(s): Spouse/significant other Patient/Family Comments: Caregiver Assessment: Caregiver is ready, willing and able to meet the patient's needs as recommended by the inter-professional team: Other: See Comment Transport at Discharge: Transportation Arrangements: To Be Determined Needs Prior to Discharge: Needs Prior to Discharge: To Be Determined Intimate Partner Violence We have begun to talk to patients about safe and healthy relationships because it can have a large impact on your health. Do you feel safe around your partner or ex-partner?: Yes Food Insecurity Within the past 12 months, you worried that your food would run out before you got the money to buy more.: Never true Within the past 12 months, the food you bought just didn't last and you didn't have money to get more.: Never true Transportation Needs In the past 12 months, has lack of transportation kept you from medical appointments or from getting medications?: No In the past 12 months, has lack of transportation kept you from meetings, work, or from getting things needed for daily living?: No Housing Stability In the last 12 months, was there a time when you were not able to pay the mortgage or rent on time?: No In the past 12 months, how many times have you moved where you were living?: 0 At any time in the past 12 months, were you homeless or living in a nursing home (including now)?: No Utilities In the past 12 months has the Outernet, gas, oil, or water Weroom threatened to shut off services in your home?: No Social Information Financial Resources: Retired Post-Acute Discharge Plan: Consult of pt admitted from the home setting due to Cholelithiasis with acute on chronic cholecystitis . Chart reviewed and due to pt's confusion he is unable to complete case management assessment . Contacted pt's spouse who confirms prior to admission pt was alert and oriented, independent in all his Adls and able to provided his own transportation in his area . She confirms pt does have a history of alcohol but he cut down to about 1 beer/week, states he cut down on his own and was not involved with any substance abuse agency. She confirms he also likes his [employer]'' and smokes less then 1 joint maybe once/month Her goal is for pt to return home and her sons or her will provide transport for pt at discharge She is concerned about his current state of confusion and states she cannot take pt home if this confusion is going to continue. She states pt never utilizes any C services or never required an admission to a SNF . She requests to speak with pt's physican when she arrives today and pt's nurse Cande notified and she has notifed attending Dr Aguilar. His PCP is Gosia Delaney and she knows he has seen him at least once this year and has an appointment Will follow up with pt's spouse after her visit with pt this date to confirm a back up plan if she is unable to meet his needs in the home setting SIGNATURE: YOVANY Walker PATIENT NAME: Fahad Kirk Jr DATE: November 22, 2024 TIME: 10:52 AM [facility] 11-21-2024 Note HNO ID: [id number] Author: KERWIN AGUILAR DO Service: Hospital Medicine Author Type: Physician Type: Progress Notes Filed: 11/21/2024 20:01 Note Text: PROGRESS NOTE SERVICE DATE: 11/21/2024 SERVICE TIME: 7:54 PM PRIMARY SERVICE: Internal Medicine CHIEF COMPLAINT: Evaluation of displaced cholecystostomy tube INTERVAL HPI: Patient seen and examined, discussed with house staff and RN. Per nursing cholecystostomy tube was placed in IR earlier today. BP 166/89 Pulse 100 Temp (Src) 97.8 (Oral) Resp 20 Ht 5' 2 (1.58m) Wt 118 lb 13.3 oz (53.9kg) SpO2 94% BMI 21.73 kg/(m2). O2 Therapy: Room Air, Liters (Numeric Only): 3 PHYSICAL EXAM: General: alert, resting comfortably Neck: supple, no hepatojugular reflux or jugular venous distention, no carotid bruits Lungs: clear to auscultation bilaterally, no wheezing, rales, or rhonchi Cardiac: regular rate and rhythm, normal S1 and S2, no murmurs, gallops, or rubs Abdomen: cholecystostomy tube in place, soft, nontender, nondistended, bowel sounds present Extremities: no edema, cyanosis, or clubbing Skin: no rashes or breakdown Lymphatic: no cervical or supraclavicular lymphadenopathy Neurologic: cranial nerves II-XII are grossly intact Psychiatry: confused Current Facility-Administered Medications Medication Dose Route Frequency NaCl 0.9% iv flush bag 20 mL INTRAVENOUS PRN aluminum-magnesium hydroxide-simethicone 200-200-20 mg/5 mL 30 mL 30 mL ORAL DAILY PRN ondansetron 4 mg tab(s) (ZOFRAN) 4 mg ORAL q 6 H PRN Or ondansetron (PF) 4 mg injection (ZOFRAN) 4 mg INTRAVENOUS q 6 H PRN polyethylene glycol 3350 17 g packet 17 g ORAL DAILY PRN acetaminophen 650 mg tab(s) (TYLENOL) 650 mg ORAL q 6 H PRN NaCl 0.9% iv infusion 150 mL/hr INTRAVENOUS CONTINUOUS morphine 2 mg injection 2 mg INTRAVENOUS q 4 H PRN piperacillin-tazobactam iv piggyback 3.375 g in dextrose (iso-osmotic) 50 mL (ZOSYN) 3.375 g INTRAVENOUS q 6 H thiamine 100 mg tab(s) (VITAMIN B1) 100 mg ORAL DAILY multivitamin-ferrous fumarate-folic acid 1 tablet (CENTRUM) 1 tablet ORAL DAILY folic acid 1 mg tab(s) 1 mg ORAL DAILY PHENobarbital 64.8 mg tab(s) 64.8 mg ORAL TID PRN pantoprazole DR 40 mg tab(s) (PROTONIX) 40 mg ORAL DAILY (6 AM) haloperidol 3 mg tab(s) (HALDOL) 3 mg ORAL AT BEDTIME QUEtiapine 12.5 mg tab(s) (SEROquel) 12.5 mg ORAL q 8 H PRN atorvastatin 40 mg tab(s) (LIPITOR) 40 mg ORAL AT BEDTIME levothyroxine 25 mcg tab(s) (SYNTHROID) 25 mcg ORAL BEFORE BREAKFAST DAILY potassium citrate ER 1,080 mg tab(s) (UROCIT-K) 1,080 mg ORAL DAILY propranolol ER 60 mg cap(s) (INDERAL LA) 60 mg ORAL DAILY valsartan 40 mg tab(s) (DIOVAN) 40 mg ORAL DAILY aspirin 81 mg chewable tab(s) 81 mg ORAL DAILY NaCl 0.9% iv infusion 5-30 mL/hr INTRAVENOUS CONTINUOUS fentaNYL 50 mcg/mL 25-50 mcg injection (SUBLIMAZE) 25-50 mcg INTRAVENOUS q 10 MIN PRN ondansetron 4 mg tab(s) (ZOFRAN) 4 mg ORAL q 6 H PRN Or ondansetron (PF) 4 mg injection (ZOFRAN) 4 mg INTRAVENOUS q 6 H PRN DATA: WBC (k/uL) Date Value 11/21/2024 9.07 RBC (m/uL) Date Value 11/21/2024 3.74 (L) Hemoglobin (g/dL) Date Value 11/21/2024 11.9 (L) Hematocrit (%) Date Value 11/21/2024 34.1 (L) MCV (fL) Date Value 11/21/2024 91.2 MCH (pg) Date Value 11/21/2024 31.8 MCHC (g/dL) Date Value 11/21/2024 34.9 RDW-CV (%) Date Value 11/21/2024 13.2 Platelet Count (k/uL) Date Value 11/21/2024 137 (L) MPV (fL) Date Value 11/21/2024 10.8 Glucose (mg/dL) Date Value 11/21/2024 107 (H) BUN (mg/dL) Date Value 11/21/2024 8 Creatinine (mg/dL) Date Value 11/21/2024 0.84 Sodium (mmol/L) Date Value 11/21/2024 134 (L) Potassium (mmol/L) Date Value 11/21/2024 3.8 Chloride (mmol/L) Date Value 11/21/2024 104 CO2 (mmol/L) Date Value 11/21/2024 23 Protein, Total (g/dL) Date Value 11/21/2024 5.5 (L) Albumin (g/dL) Date Value 11/21/2024 2.9 (L) Calcium, Total (mg/dL) Date Value 11/21/2024 8.4 (L) Alkaline Phosphatase (U/L) Date Value 11/21/2024 57 Bilirubin, Total (mg/dL) Date Value 11/21/2024 0.9 ALT (U/L) Date Value 11/21/2024 84 (H) ASSESSMENT AND PLAN: Cholecystitis Patient initially taken to the [facility] ED for abdominal pain CT abdomen showed a hydropic gallbladder containing radiodense stones with marked wall thickening and pericholecystic fluid in addition to inflammatory stranding Follow-up ultrasound showed distended gallbladder with cholelithiasis, wall thickening, and pericholecystic fluid Cholecystostomy tube placed there but pulled out by patient Patient transferred here to [facility] surgery is following New cholecystostomy tube placed today in IR Continue parenteral antibiotic therapy via IV Zosyn 3.375 g every 6 hours Continue IV fluids via normal saline but will de-escalate to 75 cc/hour Continue IV morphine 2 mg every 4 PRN for pain Encephalopathy vs. EtOH withdrawal vs. (more content not included)... [facility] 11-21-2024 Note [facility] Medical Records Department [address] [place] [address] Discharge Summary 11/21/24 1414 MR#: [id number] Acct: [id number] Name: FAHAD KIRK Rep #: [id number] : 1955 69 From: Yakov Samano MD PCP: Dr. Gosia Delaney MD Status:DIS IN Location: [place] [address]-1 Providers Date of Admission: 11/19/24 Primary Care Physician: Dr. Gosia Delaney MD Reason For Visit: ACUTE CHOLECYSTITIS PANCREATITIS Diagnosis Discharge Diagnosis (1) Acute cholecystitis: Status: Acute Code(s): K81.0 - Acute cholecystitis (2) Gallstone pancreatitis: Status: Acute Code(s): K85.10 - Biliary acute pancreatitis without necrosis or infection Plan Patient has gallstone pancreatitis along with acute cholecystitis. The patient has a lipase of 2900 as well as some slight increase in the AST and ALT. Bilirubin is normal. The patient had a CT scan which showed a large amount of inflammation around the gallbladder with thickening and pericholecystic fluid as well as fluid around the liver. This appears [...] for the morning. Yakov Samano MD Pager: [facility] [address] [place] [address], [address] [place] [address] Office: Medications at Discharge Home Medications amlodipine 5 mg tablet 5 mg PO DAILY 03/30/17 aspirin 81 mg chewable tablet 81 mg PO DAILY@0800 03/30/17 levalbuterol tartrate 45 mcg/actuation aerosol inhaler 15 g IH DAILY PRN Wheezing 03/30/17 levocetirizine 5 mg tablet 5 mg PO DAILY 03/30/17 potassium citrate 10 mEq (1,080 mg) tablet,extended release 5 meq PO DAILY 03/30/17 rosuvastatin 20 mg tablet 20 mg PO DAILY 03/30/17 umeclidinium 62.5 mcg/actuation blister powder for inhalation 62.5 mcg IH DAILY PRN Wheezing 03/30/17 calcium 500 mg (as carbonate)-D3 2.5 mcg (100 unit) chewable tablet 1 tab PO BID 09/11/20 levothyroxine 25 mcg tablet 25 mcg PO DAILY 09/16/20 thiamine mononitrate (vit B1) 100 mg tablet 100 mg PO DAILY PRN 09/16/20 metoprolol succinate 50 mg tablet,extended release 24 hr 50 mg PO DAILY 04/07/21 ascorbate calcium (vitamin C) 500 mg tablet 500 mg PO DAILY 08/05/21 omega 1-sep-xma-fish oil 300 mg-1,000 mg capsule,delayed release (Fish Oil) 1 cap PO BID 02/02/22 Hospital Course Operations None Procedures None Summary of Care Provided Hospital Course: The patient was admitted with acute cholecystitis. He was also admitted with gallstone pancreatitis. I ordered a cholecystostomy tube to be placed but it was unable to be placed due to radiology not being able to sedate him adequately. The patient was then transferred to an outside hospital for IR drainage under sedation. Weight / BMI Weight Weight: 119 lb 11.376 oz Body Mass Index (BMI) 21.9 ABG / Lab / Microbiology Data 11/20/24 00:40 11/20/24 00:40 Laboratory: Laboratory Results - last 24 hr 11/20/24 13:52: POC Glucose 114 H D/C Instructions DC O2, CPAP, BIPAP Needs Home O2 Discharge instructions: No Meaningful Use Info Meaningful Use Meaningful Use Diagnoses (Choose all that apply): None applicable Discharge Plan Admission Admit Date/Time: 11/19/24 22:49 Attending Provider: Yakov Samano Primary Care Provider: Gosia Delaney Instructions Patient Instructions: Cedrick Medina Drain Tube Dc, Post Op Drain Emptying Steps Discharge Orders/Prescriptions Prescriptions: No Action thiamine mononitrate (vit B1) 100 mg tablet 100 mg PO DAILY PRN calcium carbonate-vitamin D3 500-100 mg-unit tablet,chewable 1 tab PO BID Patient Comments: TAKE ONE TABLET BY MOUTH TWICE DAILY levothyroxine 25 mcg tablet 25 mcg PO DAILY Patient Comments: TAKE 1 TABLET BY MOUTH EVERY DAY metoprolol succinate 50 mg tablet extended release 24 hr 50 mg PO DAILY ascorbate calcium (vitamin C) 500 mg tablet 500 mg PO DAILY omega 8-mjh-pal-fish oil [Fish Oil] 300-1,000 mg capsule,delayed release(DR/EC) 1 cap PO BID amlodipine 5 MG tablet 5 mg PO DAILY potassium citrate 10 MEQ tablet extended release 5 meq PO DAILY aspirin 81 MG tablet,chewable 81 mg PO DAILY@0800 rosuvastatin 20 MG tablet 20 mg PO DAILY levalbuterol tartrate 15 GM HFA aerosol inhaler 15 g IH DAILY PRN (Reason: Wheezing) lev (more content not included)... [facility] 11-21-2024 Note HNO ID: [id number] Author: PAULO GOODWIN APRN.WRINGER OPERATOR Service: ? Author Type: Nurse Golf Professional Type: Anesthesia Procedure Notes Filed: 11/21/2024 12:52 Note Text: ANESTHESIOLOGY PROCEDURE NOTE Airway General Information Procedure Start Time/Medication Administration: 11/21/2024 12:43 PM Procedure End Time: 11/21/2024 12:43 PM Patient location during procedure: OR Timeout Performed Pre-procedure: timeout performed Consent Obtained: Yes Patient identity confirmed: arm band and patient Staffing Anesthesiologist: Garland Yancey DO WRINGER OPERATOR: Paulo Goodwin APRN.WRINGER OPERATOR Performed by: EVE Indications and Patient Condition Indications for airway management: anesthesia Preoxygenated: yes anesthesia circuit Patient position: sniffing Method: asleep Final Airway Details Final airway type: supraglottic airway Number of attempts at approach: 1 Final Supraglottic Airway: i-gel Size 4 Seal Adequate: yes SIGNATURE: Paulo Crabtree APRN.WRINGER OPERATOR PATIENT NAME: Fahad Kirk DATE: November 21, 2024 TIME: 12:51 PM CSN: [id number] [facility] 11-20-2024 Radiology Diagnostic study note [facility] Imaging Services [address] [place], [place] [id number] Abscess/Fistula/Sinus Tract MR#: [id number] Acct: [id number] Name: FAHAD KIRK Rep #: [id number] : 1955 M 69 From: Reginaldo Alarcon MD PCP: Dr. Gosia Delaney MD Status: ADM IN Study:Abscess/Fistula/Sinus Tract Date of Exa m: 11/20/24 Exam# [id number] Ordering Dr: Yakov Shipley MD PROCEDURE: Percutaneous cholecystostomy. 11/20/2024 REASON FOR EXAM: ACUTE CHOLECYSTITIS TECHNIQUE: The procedure as well as the benefits and possible complications including infection and bleeding were explained to the patient the patient's . Informed consent was obtained. Conscious sedation was performed. The patient received 2 mg of Versed and 50 mcg of fentanyl intravenously. Conscious sedation was started at 12:15 p.m. and terminated at 12:43 p.m.. The patient was independently monitored by the department nurse. One or more dose reduction techniques were used (e.g., Automated exposure control, adjustment of the mA and/or kV according to patient size, use of iterative reconstruction technique). RADIATION DOSE SUMMARY: CTDlvol: 22 MGy DLP: 474.59 mGycm COMPARISON: Prior CT scan of the abdomen and pelvis dated November 19, 2024. FINDINGS: The patient was in the supine position. The patient became agitated and aggressive. An 8 Nigerien catheter was placed into the gallbladder lumen. Approximately 25 cc of dark brown fluid was aspirated. The patient became more aggressive and pulled the catheter out. The patient was stepping off the table. The procedure was terminated. CT/Abscess/Fistula/Sinus Tract IMPRESSION: Attempted percutaneous cholecystostomy tube placement. The patient was very uncooperative as described. 25 cc of dark brown colored fluid was aspirated. Reading Location: [facility] CC: Dr. Yakov Samano MD; Dr. Gosia Delaney MD ~ Commercial Horticulture Instructor: Signed [facility] 11-20-2024 History and physi severiano note Note Date/Time November 19, 2024 10:58pm [facility] Medical Records Department [address] [place] [address] H&P Exam - Surgical 11/19/24 2252 MR#: [id number] Acct: [id number] Name: FAHAD KIRK #:[id number] : 1955 69 From: Yakov durán MD PCP: Dr. Gosia Delaney MD Status:REG ER Location: ED HPI - General HPI Narrative FAHAD KIRK, is a 69 M who presents with abdominal pain. Patient reports the pain started yesterday. He has been feeling unwell for a few days. He currently denies any nausea or vomiting but he did vomit once today. [facility] Medical History Alcohol abuse Alcoholism Carotid stenosis, [...] 07/09 01/29 Unknown History mg tablet omega 1-pqr-qni-fish oil 300 1 cap PO BID 02/02/22 [...] gym frequency: 3-4 times per week angie/scientology: Presybeterian seatbelt use: always ROS Constitutional Constitutional: Denies [...] (Auto) 84.9 H, Lymph % (Auto) 8.8L, Valley % (Auto) 4.3, Eos % (Auto) 1.3, [...] of an acute cardiopulmonary abnormality. Reading Location: [id number] Abdomen/Pelvis CT 11/19/24 20:52 IMPRESSION: Findings worrisome for acute cholecystitis. Of note, there is a small amount offree fluid adjacent to the liver and surrounding the gallbladder. Recommend Surgical consultation +/- ultrasound. Reading Location: [id number] Assessment & Plan Assessment/Plan (1) Acute cholecystitis: [...] for the morning. Yakov Samano MD Pager: [facility] [address] [place] [address], [address] [place] [address] Office: 11/19/24 5948 <Electronically signed by Yakov Samano MD> Cosigner Signature (if applicable): CC: Dr. Yakov Samano MD; Dr. Gosia Delaney MD~ Signed [facility] Work Phone: [phone] Radiology Diagnostic study note [facility] Imaging Services [address] [place], [place] [id number] Abdomen Limited MR#: [id number] Acct: [id number] Name: FAHAD KIRK Rep #: [id number] : 1955 M 69 From: Ashleigh Chan MD PCP: Dr. Gosia Delaney MD Status: ADM IN Study:Abdomen Limited Date of Exam: 11/07 08/01 Exam# [id number] Ordering Dr: Maria Luz Genao DO PROCEDURE: ABDOMEN LIMITED 11/19/2024 REASON FOR EXAM: ?ACUTE CHOLECYSTITIS TECHNIQUE: ABDOMEN LIMITED COMPARISON: CT 11/19/2024 FINDINGS: Gallbladder is distended with pericholecystic fluid, gallbladder wall thickening, cholelithiasis. CBD measures 7 mm. The liver, and visible pancreas are unremarkable. The right kidney measures 9 cm in length without hydronephrosis. US/Abdomen Limited IMPRESSION: Abnormal gallbladder, most consistent with cholecystitis. Reading Location: [place] [address] CC: Dr. Gosia Delaney MD; Dr. Kevin Genao DO ~ Commercial Horticulture Instructor: Signed [facility]07-13-2025 History and physical note [facility] Medical Records Department [address] [place] [address] H&P Exam - Surgical 11/19/24 2252 MR#: [id number] Acct: [id number] Name: FAHAD KIRK Rep #:[id number] : 1955 69 From: Yakov durán MD PCP: Dr. Gosia Delaney MD Status:REG ER Location: ED HPI - General HPI Narrative FAHAD KIRK is a 69 M who presents with abdominal pain. Patient reports the pain started yesterday. He has been feeling unwell for a few days. He currently denies any nausea or vomiting but he did vomit once today. [facility] Medical History Alcohol abuse Alcoholism Carotid stenosis, [...] 07/09 01/29 Unknown History mg tablet omega 7-cat-tby-fish oil 300 1 cap PO BID 02/02/22 [...] gym frequency: 3-4 times per week angie/scientology: Presybeterian seatbelt use: always ROS Constitutional Constitutional: Denies [...] MPV 10.5, Immature Gran % (Auto) 0.500, Neut% (Auto) 84.9 H, Lymph % (Auto) 8.8L, Valley % (Auto) 4.3, Eos % (Auto) 1.3, Baso % (Auto) 0.2, Absolute Neuts (auto)14.0 H, Absolute Lymphs (auto) 1.45, Nucleated RBC % 0, Sodium 130 L, Potassium 3.7,Chloride 93 L, Carbon Dioxide 22.0, Anion Gap [...] of an acute cardiopulmonary abnormality. Reading Location: [id number] Abdomen/Pelvis CT 11/19/24 20:52 IMPRESSION: Findings worrisome for acute cholecystitis. Of note, there is a small amount offree fluid adjacent to the liver and surrounding the gallbladder. Recommend Surgical consultation +/- ultrasound. Reading Location: [id number] Assessment & Plan Assessment/Plan (1) Acute cholecystitis: (2) Gallstone pancreatitis: PLAN: Plan Patient has gallstone pancreatitis along with acute cholecystitis. The patient has a lipase of 2900as well as some slight increase in the AST and ALT. Bilirubin is normal. The patient had a CT scan which showed a large amount of inflammation around the gallbladder with thickening and pericholecystic fluid aswell as fluid around the liver. This appears very inflamed on the CT scan. I believe thishas been brewing for several days longer than [...] for the morning. Yakov Samano MD Pager: [facility] [address] [place] [address], [address] [place] [address] Office: 11/19/24 2350 Cosigner Signature (if applicable): CC: Dr. Yakov Samano MD; Dr. Gosia Delaney MD~ Signed [facility]07-13-2025 Radiology Diagnostic study note [facility] Imaging Services [address] [place] [address] Abdomen/Pelvis W IV Cont ONLY MR#: [id number] Acct: [id number] Name: FAHAD KIRK Rep #: [id number] : 1955 M 69 From: Chelsie Whitehead MD PCP: Dr. Gosia Delaney MD Status: REG ER Study:Abdomen/Pelvis W IV Cont ONLY Date of E xam: 11/19/24 Exam# [id number] Ordering Dr: Maria Luz Genao DO PROCEDURE: [...] Recommend Surgical consultation +/- ultrasound. Reading Location: [id number] CC: Dr. Gosia Delaney MD; Dr. Kevin Genao DO ~ Commercial Horticulture Instructor: Signed [facility]07-13-2025 Radiology Diagnostic study note [facility] Imaging Services [address] [place] [id number] Chest 1 View (Portable) MR#: [id number] Acct: [id number] Name: FAHAD KIRK Rep #: [id number] : 1955 M 69 From: Chelsie Whitehead MD PCP: Dr. Gosia Delaney MD Status: PRE ER Study:Chest 1 View (Portable) Date of Exam: 11/19/24 Exam# [id number] Ordering Dr: Maria Luz Genao DO PROCEDURE: CHEST 1 VIEW (PORTABLE) 11/19/2024 REASON FOR EXAM: CHEST PAIN TECHNIQUE: Frontal view of the chest. COMPARISON: Chest radiograph and CT on 07/03/2023 FINDINGS: Hardware: None Heart: The heart size is normal. Lungs: Mild elevation of the left hemidiaphragm is unchanged. No focal consolidation or significantpleural effusion. Bones: Degenerative changes are identified within the thoracic spine. RAD/Chest 1 View (Portable) IMPRESSION: Stable appearance of the chest, without evidence of an acute cardiopulmonary abnormality. Reading Location: [id number] CC: Dr. Gosia Delaney MD; Dr. Kevin Genao DO ~ Commercial Horticulture Instructor: Signed [facility]07-02-2025 Evaluation note* Diagnosis Onset Date Resolution Status Admit Date Carotid stenosis, asymptomatic acute November 08, 2024 7:56am Essential tremor chronic November 7:56am Acute cholecystitis acute November 20, 2024 12:30am Gallstone pancreatitis acute Ju ly 2024 12:30am [facility] Work Phone: 1(996) 233-575507-02-2025 Evaluation note* Diagnosis Onset Date Resolution Status Admit Date Carotid stenosis, asymptomatic acute November 08, 2024 7:56am Essential tremor chronic November 7:56am Acute cholecystitis acute November 19, 2024 10:49pm Gallstone pancreatitis acute Ju ly 2024 10:49pm [facility] Work Phone: 1(696) 290-334404-22-2024 NoteHNO ID: [id number] Author: MARY CARMEN LARA MD Service: ? Author Type: Physician Type: Progress Notes Filed: 08/30/2023 15:29 Note Text: Fahad Kirk Jr is a 68 year old, White [...] which included preparing to see the patient, [id number] patient care, completing clinical (more content not included)...[facility]04-22-2024 Instructions* Patient Instructions* Mary Carmen Lara MD - 08/30/2023 2:36 PM EDT Images [...] people who take drugs that lower cholesterol Lebanese Indians and people of [place] descent What are the symptoms of gallstones? [...] people who take these drugs. References [employer] [place] of Diabetes and Digestive and Kidney Diseases. Gallstones Accessed 03/29/2014. [employer]. Gallstones Accessed 03/29/2014. [employer] [place] [employer] Diabetes and Digestive and Kidney Diseases. ERCP (Endoscopic Retrograde Cholangiopancreatography) Accessed 03/29/2014. Copyright 0670-4672 [facility]. All rights reserved. This information is provided by the [facility] and is not intended to replace the medical advice of your doctor or health care provider. Please consult your health care provider for advice about a specific medical condition. For additional health information, please contact the Center for Consumer Health Information at the [facility] or toll-free extension [phone]. If you prefer, you may visit [email or web address] or [email or web address]. This document was last reviewed on: 2014 [...] laparoscopic cholecystectomy? Less discomfort than regular surgery [place] hospital stay, with a quicker recovery time [...] closed using surgical clips and stitches. References [employer]. Cholecystectomy Accessed 11/15/2015. Society of [place] Gastroenter[employer] and Endoscopic Sur[employer]. Laparoscopic Gallbladder Removal (Patient Information from [facility] Accessed 11/15/2015. Copyright 8552-3200 [facility]. All rights reserved This information is provided by the [facility] and is not intended to replace the medical advice of your doctor or health care provider. Please consult your health care provider for advice about a specific medical condition. For additional health information, please contact the Center for Consumer Health Information at the [facility] or toll-free extension [phone]. If you prefer, you may visit [email or web address] or [email or web address]. This document was last reviewed on: 2015 documented in this encounter[facility] History of Present illness Narrative* Mary Carmen Lara MD - 08/30/2023 2:35 PM EDT Fahad Kirk Jr is a 68 year old, White [...] as a youth and it appears that pepper a feeding tube scar site as well.. Musculoskeletal: Joint pain Back. Lymph Nodes: No cervical lymphadenopathy and No supraclavicular lymphadenopathy. I spent a total of 24 minutes on the date of the service which included preparing to see the patient, [id number] patient care, completing clinical documentation, obtaining and/or [...] he starts having more problems. Mary Carmen Lara M.D., FACS documented in this encounterAkron [facility]04-17-2024 NoteHNO ID: [id number] Author: JESSY STAFFORD MD Service: ? Author Type: Physician Type: Progress Notes Filed: 08/28/2023 15:26 Note Text: Fahad Kirk Jr 1955 REFERRING PHYSICIAN: No ref. provider found CHIEF COMPLAINT: New Patient and Abdominal Pain HPI: The patient is a 68 year old male presents with abnormal findings on gallbladder ultrasound. He had presented to [facility] ED with right lower rib pain. He [...] entered by the nurse and reviewed by mi Nursing Notes: Naila Looney MA 08/25/2023 2:58 [...] of (more content not included)... [facility]04-17-2024 History of Present illness Narrative* Jessy Stafford MD - 08/25/2023 3:00 PM EDT Fahad Kirk Jr 1955 REFERRING PHYSICIAN: No ref. provider found CHIEF COMPLAINT: New Patient and Abdominal Pain HPI: The patient is a 68 year old male presents with abnormal findings on gallbladder ultrasound. He had presented to [facility] ED with right lower rib pain. He [...] (98.3 F), height 160 cm (5' 3), brkeem05.2 kg (119 lb 6.4 oz), SpO2 98%. [...] present with him. Will refer patient to [facility] for consideration of gallbladder surgery. The patient states to call , patient's as patient has difficulty hearing, can leave voice mail. I personally made call to [facility] general surgery for them to contact patient [...] records from other medical facilities such as [facility], qlwy-oy-bmoc patient care, obtaining oral medical history from the patient in this encounter, performing a medically appropriate examination, counseling and educating the patient/family/caregiver, and ordering and/or scheduling of medications/tests/procedures, and completing appropriate medical documentation. Jessy Stafford MD documented in this encounterAkron [facility]04-17-2024 Nurse Note* Naila Looney MA - 08/25/2023 [...] N/A Naila Looney MA documented in this encounterAkron [facility]02-24-2024 Discharge summary Author Lionel Ocasio [facility] July 03, 2023 2:51pm Note Date/Time July 03, 2023 12:26pm [facility] Medical Records Department [address] [place] [address] Emergency Department Summary 07/03/23 MR#: [id number] Acct: [id number] Name: FAHAD KIRK Rep #:[id number] : 1955 67 From: Lionel Ocasio MD [...] or OCP + Smoking + >/=35 PFSH [facility] Medical History Alcohol abuse Alcoholism Carotid stenosis, [...] DAILY 08/05/21 [History Last Taken Unknown] omega 0-kez-esq-fish oil 300 mg-1,000 mg capsule,delayed release (Fish [...] gym frequency: 3-4 times per week angie/scientology: Presybeterian seatbelt use: always ROS ROS ED ROS [...] % (Auto) 67.7 Lymph % (Auto) 19.8 Valley % (Auto) 7.2 Eos % (Auto) 4.6 [...] rate of 62 no acute signs of KS or ischemia. Discharge Plan Triage Chief Complaint: [...] mg tablet 500 mg PO DAILY omega 0-cvo-upg-fish oil [Fish Oil] 300-1,000 mg capsule,delayed release(DR/EC) [...] your Primary Care Provider. Call [facility] ([phone]) or report to the closest Emergency Room. Call 911 if necessary. 07/03/23 1450 <Electronically signed by Lionel Ocasio MD> Cosigner Signature (if applicable): CC: Dr. Gosia Delaney MD ~ Signed [facility] Work Phone: Evaluation noteNo assessment information available [facility] Work Phone: Evaluation note* Diagnosis Onset Date Resolution Status Carotid stenosis, asymptomatic acute Essential tremor chronic [facility] Work Phone: Evaluation note* Diagnosis Calculus of gallbladder without cholecystitis without obstruction- Primary Calculus of gallbladder without mention of cholecystitis or obstruction documented in this encounter [facility] [place] [facility]* Diagnosis Symptomatic cholelithiasis- Primary Calculus of gallbladder without mention of cholecystitis or obstruction documented in this encounter [facility] [place] [facility]* Diagnosis Onset Date Resolution Status Admit Date Carotid stenosis, asymptomatic acute November 08, 2024 7:56am Essential tremor chronic November 7:56am [facility] Work Phone: History and physical note Author Yakov Samano [facility] Note Date/Time November 19, 2024 10:5 8pm [facility] Medical Records Department [address] [place] [address] H&P Exam - Surgical 11/19/24 2252 MR#: [id number] Acct: [id number] Name: FAHAD KIRK Rep #:[id number] : 1955 69 From: Yakov durán MD PCP: Dr. Gosia Delaney MD Status:REG ER Location: ED HPI - General HPI Narrative FAHAD KIRK, is a 69 M who presents with abdominal pain. Patient reports the pain started yesterday. He has been feeling unwell for a few days. He currently denies any nausea or vomiting but he did vomit once today. [facility] Medical History Alcohol abuse Alcoholism Carotid stenosis, [...] 07/09 01/29 Unknown History mg tablet omega 8-zoy-cfq-fish oil 300 1 cap PO BID 02/02/22 [...] gym frequency: 3-4 times per week angie/scientology: Presybeterian seatbelt use: always ROS Constitutional Constitutional: Denies [...] (Auto) 84.9 H, Lymph % (Auto) 8.8L, Valley % (Auto) 4.3, Eos % (Auto) 1.3, [...] of an acute cardiopulmonary abnormality. Reading Location: [id number] Abdomen/Pelvis CT 11/19/24 20:52 IMPRESSION: Findings worrisome for acute cholecystitis. Of note, there is a small amount offree fluid adjacent to the liver and surrounding the gallbladder. Recommend Surgical consultation +/- ultrasound. Reading Location: [id number] Assessment & Plan Assessment/Plan (1) Acute cholecystitis: [...] for the morning. Yakov Samano MD Pager: [facility] [address] [place] [address], [address] [place] [address] Office: 11/19/24 [phone] <Electronically signed by Yakov Samano MD> Cosigner Signature (if applicable): CC: Dr. Yakov Samano MD; Dr. Gosia Delaney MD~ Signed [facility] Work Phone: Hospital Discharge instructions Additional Instructions [...] your heart and is not a blood clot.[facility] Work Phone: Reason for referral (narrative)No reason for referral information availableWSt. Mary's [facility] Work Phone: Chief Complaint and Reason for [...] Gallstone pancreatitis November 20, 2024 1 2:30am Chief Complaint Admit Date 1 Y FU November 08, 2024 7:56a m ACUTE CHOLECYSTITIS & PANCREATITIS November 19, 2024 10:49pm chest pain November 19, 2024 10:5 2pm Reason for Visit Admit Date Carotid stenosis, asymptomatic November 08, 2024 7:56am Essential tremor November 08, 2024 7:56a m Acute cholecystitis November 19, 2024 10:4 9pm Gallstone pancreatitis November 19, 2024 1 0:49pm Family History No Family History Records Found Relationship Condition Age at Onset Recorded Date/T blaise brother Cardiac disease Unknown Myocardial infarction Unknown father Cardiac disease Unknown Advance Directives No Advanced Directives Records Found Advance Directive Response Recorded Date/ Time Living Will Yes March 30 9:20pm Power of Vocational Teacher Yes March 30, 2017 9:20pm Advance Directive Response Recorded Date/ Time Living Will Yes March 30, 10:20pm Power of Vocational Teacher Yes March 30, 2017 10:20pm Advance Directive Response Recorded Date/ Time Living Will No July 03 11:56am Power of Vocational Teacher No July 03, 2023 11:56am Advance Directive Response Recorded Date/ Time Living Will No July 03 12:56pm Do you have a Healthcare Power of Vocational Teacher? No July 03, 2023 12:56pm Advance Directive Response Recorded Date/ Time Living Will No July 03 12:56pm Do you have a Healthcare Power of Vocational Teacher? No July 03, 2023 12:56pm Do you have a Healthcare Power of Vocational Teacher? Yes November 19, 2024 7:51pm Name of Medical Power of Vocational Teacher November 19, 2024 7:51pm Advance Directive Response Recorded Date/ Time Living Will No July 03 12:56pm Do you have a Healthcare Pow er of Vocational Teacher? No July 03, 2023 12:56pm Do you have a Healthcare Pow er of Vocational Teacher? Yes November 20, 2024 1:22am Name of Medical Power of Vocational Teacher Fahad sanford III November 20, 2024 1:22am Summary Purpose Additional Source Comments Care Teams [...] Goisa Delaney MD Primary Care Provider Active Dr. 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 Gosia Delaney MD Primary Care Provider Active Start: November 19, 2024 End: November 20, 2024 Dr. Kevin Genao DO Emergency Provider Active Start: November 19, 2024 End: November 20, 2024 Dr. Yakov Samano MD Admit Provider Active Start: November 19, 2024 End: November 20, 2024 Dr. Yakov Samano MD Attending Provider Active Start: November 19, 2024 End: November 20, 2024 Team Status: Active Member Role/Relationship Status Dates Dr. Gosia Delaney MD Primary Care Provider Active Start: November 19, 2024 Dr. Kevin Genao DO Emergency Provider Active Start: November 19, 2024 Dr. Yakov Samano MD Attending Provider Active Start: November 19, 2024 Goals (unrecognized section and content) Goals [...] or prosecute any alcohol or drug abuse patient.[facility] the event this information is protected by the Federal Confidentiality of Alcohol and Drug Abuse Patient Records regulations: The Federal rules restrict any use of the information to criminally investigate or prosecute any alcohol or drug abuse patient.[facility] Reason for Visit (unrecogniz ed section and content) Reason Comments New Patient Abdominal Pain Reason Comments GB (unrecognized sect ion and content) No Status Records FoundNo Status Records FoundNo Status Records FoundNo Status Records Found INFORMATION SOURCE (unrecogn ized section and content) DATE CREATED AUTHOR 08/29/2023 [facility] DATE CREATED AUTHOR AUTHOR'S ORGANIZ ATION 08/31/2023 [facility] DATE CREATED AUTHOR AUTHOR'S ORGANIZ ATION 11/28/2024 [facility] DATE CREATED AUTHOR AUTHOR'S ORGANIZ ATION 11/28/2024 [facility] Ce nter FOR RECORDS PERTAINING TO PATIENTS WHO ARE [...] BE BASED ON THE PRIMARY CLINICAL RECORDS. [facility]. provides no warranty or guarantee of the accuracy or completeness of information in this document.
== END | disposition home or self-care (01) ==
LOC: MFPLAB 16:42
PROVIDERS: PCP Family Medicine; Referring Provider Family Medicine; Visit Provider Family Medicine
DX: E03.9 Hypothyroidism, unspecified (principal); E22.2 Syndrome of inappropriate secretion of antidiuretic hormone; K81.1 Chronic cholecystitis
CPT/HCPCS: 36415; 80053; 83930; 84443; 85025; 86140

== ENCOUNTER → 2024-12-06 | Outpatient (CLI) | payer MEDICARE, BC, SELFPAY ==
[2024-12-06 16:17] LABS: AST(SGOT) 24 U/L (<=37); Alanine Aminotransfer ALT/SGPT 29 U/L (<=46); Albumin, Serum 4.3 g/dL (3.4-4.8); Alkaline Phosphatase 70 U/L (40-129); Anion Gap 11 (5-15); BUN 20 mg/dL (4-19); BUN/Creat Ratio 15.9 RATIO (10-20); Calcium,Total 9.6 mg/dL (7.6-11.0); Carbon Dioxide 25.8 mmol/L (21.0-32.0); Chloride 90 mmol/L (98-108); Globulin 2.6 g/dL (2.2-4.2); Glucose 110 mg/dL (70-99); Potassium 4.3 mmol/L (3.3-5.1)
[2024-12-06 18:30] LABS: Osmolality, Urine 651 mOsm/KG
== END | disposition home or self-care (01) ==
LOC: MTLAB 13:26
PROVIDERS: PCP Family Medicine; Referring Provider Family Medicine; Visit Provider Family Medicine
DX: I10 Essential (primary) hypertension (principal)
CPT/HCPCS: 36415; 80053; 83935; 84300

== ENCOUNTER → 2024-12-21 | Outpatient (CLI) | payer MEDICARE, BC, SELFPAY ==
[2024-12-21 13:32] LABS: PSA,Total - Annual Screen 0.45 ng/mL (0.02-4.00)
== END | disposition home or self-care (01) ==
LOC: MFPLAB 10:54
PROVIDERS: PCP Family Medicine; Referring Provider Family Medicine; Visit Provider Family Medicine
DX: Z12.5 Encounter for screening for malignant neoplasm of prostate (principal)
CPT/HCPCS: 36415; 84153; G0103

== ENCOUNTER → 2024-12-25 | Outpatient (CLI) | payer MEDICARE, BC, SELFPAY ==
--- NOTE | 2024-12-25 07:50 | CDU_ITS ---
Reason For Study Reason For Study: Bilateral ICA Stenosis Rt. Velocities/BP Lt. Velocities/BP Prox CCA 88.6/7.5 cm/sec. Prox CCA 86.7/16.7 cm/sec. Mid CCA 54.6/11.9 cm/sec. Mid CCA 85.5/21.6 cm/sec. Dist CCA 47.5/10.9 cm/sec. Dist CCA 81.8/17.9 cm/sec. Prox ICA 121.6/32.1 cm/sec. Prox ICA 116.2/30.3 cm/sec. Mid ICA 118.0/28.5 cm/sec. Mid ICA 112.5/30.3 cm/sec. Dist ICA 103.4/24.8 cm/sec. Dist ICA 101.6/21.2 cm/sec. Rt. ICA/CCA = 2.2. Lt. ICA/CCA = 1.4. Prox ECA 123.4/9.3 cm/sec. Prox ECA 102.7/10.6 cm/sec. Rt. Vert. 55.4/13.8 cm/sec. Lt. Vert. 57.2/13.8 cm/sec. Right Extracranial There is heterogeneous, irregular atherosclerotic plaque noted in the right common carotid artery. There is heterogeneous, irregular atherosclerotic plaque noted in the right internal carotid artery. The atherosclerotic plaque causes acoustic shadowing. There is heterogeneous, irregular atherosclerotic plaque noted in the right external carotid artery. Antegrade flow is noted in the right vertebral artery. Left Extracranial There is heterogeneous, irregular atherosclerotic plaque noted in the left common carotid artery. There is heterogeneous, irregular atherosclerotic plaque noted in the left internal carotid artery. The atherosclerotic plaque causes acoustic shadowing. There is heterogeneous, irregular atherosclerotic plaque noted in the left external carotid artery. Antegrade flow is noted in the left vertebral artery. Procedure Carotid Duplex 02413. This is a Carotid Duplex examination using B-mode, color flow and specral Doppler. The exam was diagnostic. Exam performed in department. VL/Carotid Duplex Ultrasound Interpretation Summary Mild (<50%) stenosis right extracranial internal carotid. Mild (<50%) stenosis left extracranial internal carotid. Flow within the vertebral arteries is antegrade bilaterally. Ordering Physician: Tuan Foster Referring Physician: Parmjit Delaney Performed By: Rob Sharma RVT
== END | disposition home or self-care (01) ==
LOC: CVS 07:50
PROVIDERS: PCP Family Medicine; Referring Provider Psychiatry & Neurology Neurology; Visit Provider Psychiatry & Neurology Neurology
DX: I65.23 Occlusion and stenosis of bilateral carotid arteries (principal)
CPT/HCPCS: 93880

== ENCOUNTER → 2025-01-05 | Outpatient (CLI) | payer MEDICARE, BC, SELFPAY ==
--- NOTE | 2025-01-05 17:11 | CT_ITS ---
PROCEDURE: LOW DOSE CT LUNG SCREENING 01/05/2025 REASON FOR EXAM: TOBACCO ABUSE TECHNIQUE: Procedure Code: CTLUNGSCREEN Modality: CT Procedure: LOW DOSE CT LUNG SCREENING Coronal and Sagittal reconstruction series were provided. One or more dose reduction techniques were used (e.g., Automated exposure control, adjustment of the mA and/or kV according to patient size, use of iterative reconstruction technique). REFERENCE LINK: [facility] Lung-RADS RADIATION DOSE SUMMARY: CTDlvol: 2.01 mGy DLP: 69 mGycm COMPARISON: CT scan on 07/03/2023. FINDINGS: PULMONARY NODULES: (Only nodules >3mm are reported) Nodules described below are on series 2 unless otherwise specified. Moderate coronary artery calcifications. Mild bilateral basilar atelectatic pulmonary changes. Unchanged mild pulmonary emphysema. Normal unenhanced main pulmonary artery and right and left pulmonary arteries. Normal bilateral peripheral pulmonary arteries. Normal thoracic aorta and visualized great vessels. There is no demonstrated aortic aneurysm. Normal heart and pericardium. Normal mediastinum. Normal hilar regions. Normal visualized trachea and thickened bronchi. Normal pleura. Normal remaining visualized upper abdomen. CT/Low Dose CT Lung Screening IMPRESSION: Coronary artery calcification (CAC) is is present Lung-RADS Category: 2 BENIGN (BASED ON IMAGING FEATURES OR INDOLENT BEHAVIOR). RECOMMEND 12-MONTH SCREENING LDCT. Reading Location: [facility]
--- OUTSIDE RECORDS SUMMARY | 2025-01-05 18:19 | XMS RPT_ITS | CCD ---
Author Organization [facility] Care Team Providers Care Digital Photo Printer Name Role Phone Dr. Gosia Delaney Primary Care Provider Dr. Gosia Melendez Attending Provider 1([facility])-[address] Tuan Foster Referring Provider Dr. Gosia Delaney Primary Care Provider [phone] Gosia Delaney Referring Provider 1([facility])[phone] Dr. Tuan Foster Attending Provider Dr. Gosia Melendez Attending Provider 1([facility])-[address] Tuan Foster Referring Provider Dr. Gosia Delaney Primary Care Provider [phone] Gosia Delaney Referring Provider [phone] Dr. Tuan Foster Attending Provider Dr. Gosia Melendez Attending Provider 1([facility])-57 10 Gosia Delaney MD Primary Care Provider [phone] JESSY STAFFORD Attending Unavailable GOSIA DELANEY Primary Care Unavailable Gosia Delaney MD Primary Care Provider [phone] MARY CARMEN LARA Attending Unavailable GOSIA DELANEY Primary Care Unavailable Dr. Gosia Delaney MD Primary Care Provider [phone] Gosia Delaney MD Attending Provider [phone] Gosia Delaney MD Referring Provider [phone] Tina Sutherland DO Attending Provider Dr. Gosia Delaney MD Primary Care Provider [phone] Rhett CADET, Dr. Parnell Referring Provider Kristin CADET, Dr. Dickerson Attending Provider [phone] Rhett CADET, Dr. Parnell Primary Care Provider Chadwick MCBRIDE, Dr. Brown Emergency Provider Jazmyne CADET, Dr. Nagy Attending Provider Jazmyne CADET, Dr. Nagy Admit Provider Chadwick MCBRIDE, Dr. Brown Emergency Provider Jazmyne CADET, Dr. Nagy Admit Provider [phone] Jazmyne CADET, Dr. Nagy Attending Provider Jazmyne CADET, Dr. Nagy Other Provider [phone] Rhett CADET, Dr. Parnell Attending Provider Kristin CADET, Dr. Dickerson Referring Provider Delaney, Gosia Primary Care Unavailable Delaney, Gosia Attending Unavailable Delaney, Gosia Referring Unavailable Delaney, Gosia Primary Care Unavailable Delaney, Gosia Attending Unavailable Franck Shelby Attending Unavailable Delnaey, Gosia Referring Unavailable Delaney, Gosia Primary Care Unavailable Yakov Samano Attending Unavailable Delaney, Gosia Primary Care Unavailable CalAdriana leeony Attending Unavailable Delaney, Gosia Primary Care Unavailable Yakov Samano Admitting Unavailable Adriana Samanoony Consulting Unavailable Delaney, Gosia Primary Care Unavailable Tuan Foster Attending Unavailable Delaney, Gosia Referring Unavailable Delaney, Gosia Referring Unavailable Delaney, Gosia Primary Care Unavailable Delaney, Gosia Attending Unavailable Delaney, Gosia Primary Care Unavailable Delaney, Gosia Attending Unavailable Tina Sutherland Attending Unavailable Delaney, Gosia Primary Care Unavailable Delaney, Gosia Primary Care Unavailable Tuan Foster Attending Unavailable Tuan Foster Referring Unavailable Yakov Samano Attending Unavailable Delaney, Gosia Primary Care Unavailable Calabretta, Yakov Admitting Unavailable Delaney, Gosia Primary Care Unavailable Delaney, Gosia Referring Unavailable Delaney, Gosia Attending Unavailable McMorrow RUBBER PRESS OPERATOR, Varinder Attending Unavailable McMorrow RUBBER PRESS OPERATOR, Varinder Referring Unavailable Delaney, Gosia Primary Care Unavailable Delaney, Gosia Referring Unavailable Delaney, Gsoia Primary Care Unavailable Delaney, Gosia Attending Unavailable Delaney, Gosia Referring Unavailable Delaney, Gosia Primary Care Unavailable Dealney, Gosia Attending Unavailable Delaney, Gosia Attending Unavailable Delaney, Gosia Referring Unavailable Delaney, Gosia Primary Care Unavailable Delaney, Gosia Referring Unavailable Delaney, Gosia Primary Care Unavailable Delaney, Gosia Attending Unavailable ADRIANA TERAN Admitting Unavailabl e YAKOV SAMANO Referring Unavailabl e GOSIA DELANEY A Primary Care Unavailable KERWIN AGUILAR Attending Unavailable ROBERTO RAMON Consulting Unavailable ROBERTO RAMON Attending Unavailable GOSIA DELANEY A Primary Care Unavailable PROVIDER, UNKNOWN Admitting Unavailable PROVIDER, UNKNOWN Attending Unavailable GOSIA DELANEY A Primary Care Unavailable Allergies Allergy Classification Reported Allergen(s) Allergy Type Date of Onset Reaction(s) Facility (4 sources) fentaNYL Drug Allergy 11-20-2024 [facility] Comment on above: confusion- hallucina tions- combative (4 sources) Midazolam Drug Allergy 11-20-2024 [facility] Comment on above: confusion- hallucina tions- combative (1 source) fenta[facility]L Drug Allergy 11-20-2024 [facility] (1 source) Midazolam Drug Allergy 11-20-2024 [facility] Medications Current Medications Medication Drug Class(es) Dates Sig (Normalized) Sig (Original) [id number] 200 actuat albuterol 0.09 mg/actuat metered dose inhaler (1 source) beta2-Adrenergic Agonist take 8 puff(s) by inhalation every six hours as needed for wheezing albuterol HFA (PROVENTIL HFA, VENTOLIN HFA) 90 mcg/actuation inhaler Inhale 8 puffs as instructed every 6 hours as needed for wheezing/shortne ss of breath. Active amLODIPine 5 mg oral tablet (19 sources) Dihydropyridine Calcium Channel Donna Start: 03-30-2017 take 1 tablet by mouth once daily Amlodipine 5 MG tablet Active 5 mg PO DAILY March 30, 2017 1:00am Ascorbic Acid (3 sources) Vitamin C ascorbic acid (VITAMIN C ORAL) Take by mouth once daily. Active ascorbic acid (V ITAMIN C ORAL) Take by mouth once daily. 0 Active Comment on above: Take by mouth once d aily. aspirin 81 mg chewable tablet (18 sources) Platelet Aggregation Inhibitor, Nonsteroidal Anti-inflammatory Drug Start: 11-21-20 17 take 1 tablet by mouth once daily Aspirin 81 MG tablet,chewable Active 81 mg PO DAILY@0800 March 30, 2017 1:00am atorvastatin 40 mg oral tablet (3 sources) HMG-CoA Reductase Inhibitor Start: 08-15-19 24 take 1 tablet by mouth once atorvastatin (LIPITOR) 40 mg tablet Take 1 tablet by mouth every afternoon. 08/15/2023 Active Comment on above: Take 1 tablet by linda th every afternoon. calcium ascorbate 500 mg oral tablet (18 sources) Start: 08-06-19 22 take 1 tablet by mouth once daily Ascorbate Calcium (Vitamin C) 500 mg tablet Active 500 mg PO DAILY August 05, 2021 12:00am calcium carbonate 1250 mg / cholecalciferol 100 unt chewable tablet (18 sources) Vitamin D Start: 09-12-19 21 Calcium Carbonate-Vitamin D3 500-100 mg-unit tablet,chewable Active [...] actuat levalbuterol 0.045 mg/actuat metered dose inhaler (18 sources) beta2-Adrenergic Agonist Start: 03-30-20 17 Levalbuterol Tartrate 15 GM HFA aerosol inhaler Active 15 g IH DAILY as needed for Wheezing March 30, 2017 1:00am levocetirizine dihydrochloride 5 mg oral tablet (20 sources) Histamine-1 Receptor Antagonist Start: 03-30-20 17 take 1 tablet by mouth once daily Levocetirizine 5 MG tablet Active 5 mg PO DAILY March 30, 2017 1:00am Comment on above: Take 5 mg by mouth o nce daily. levothyroxine sodium 0.025 mg oral tablet (20 sources) l-Thyroxine Start: 09-17-19 take 1 tablet by mouth once daily Levothyroxine 25 mcg tablet Active 25 ug PO DAILY September 16, 2020 12:00am Comment on above: once daily. LOW-DOSE ASPIRIN ORAL (3 sources) LOW-DOSE ASPIRIN ORAL Take by mouth once daily. Active LOW-DOSE ASPIRIN ORAL Take by mouth once daily. 0 Active Comment on above: Take by mouth once d aily. 24 hr metoprolol succinate 50 mg extended release oral tablet (19 sources) beta-Adrenergic Donna Start: 04-07-2021 take 1 tablet by mouth every twenty-four hours metoprolol succinate ER (TOPROL XL) 50 mg 24 hr tablet Take by mouth. 0 04/07/2021 Active Start: 04-07-2021 take 1 tablet by linda th once daily Metoprolol Succinate 50 mg tablet extended release 24 hr Active 50 mg PO DAILY April 07, 2021 1:00am MULTIVITAMIN ORAL (3 sources) MULTIVITAMIN ORA L Take by mouth once daily. Active MULTIVITAMIN ORA L Take by mouth once daily. 0 Active Comment on above: Take by mouth once d aily. [place] 3-Eap-Csy-Fish Oil (Fish Oil) 300-1,000 mg capsule,delayed release(DR/EC) (18 sources) Start: 02-02-2022 [place] 9-Wjd-Lis-Fish Oil (Fish Oil) 300-1,000 mg capsule,delayed release(DR/EC) Active 1 NMA PO TWICE A DAY February 02, 2022 12:00am Start: 02-02-2022 take 300-1000 mg by mouth twice daily [place] 0-Yky-Ifz-Fish Oil (Fish Oil) 300-1,000 mg capsule,delayed release(DR/EC) Active 1 CAP PO TWICE A DAY February 02, 2022 12:00am Start: 02-02-2022 take 300-1000 mg by mouth twice daily [place] 8-Ykm-Xkh-Fish Oil (Fish Oil) 300-1,000 mg capsule,delayed release(DR/EC) Active 1 CAP PO TWICE A DAY February 01, 2022 11:00pm potassium citrate 10 meq extended release oral tablet (20 sources) Start: 03-30-2017 take 10 mEq by mouth once daily potassium citrate ER (UROCIT-K) 10 mEq (1,080 mg) Take 1,080 mg by mouth once daily. 03/30/2017 Active Start: 03-30-2017 take 5 mEq by mouth [...] oral capsule (20 sources) beta-Adrenergic Donna Start: take 1 capsule by mouth once daily propranolol ER (INDERAL LA) 60 mg 24 hr capsule Take 60 mg by mouth once daily. 06/15/2023 Active Start: 11-19-2020 End: 11-19-2024 take 1 tablet by mouth once daily in the morning Propranolol 10 mg tablet Discontinued 10 mg PO EVERY MORNING 30 4 April 07, 2021 9:41am November 19, 2024 8:28pm Comment on above: once daily. rosuvastatin calcium 20 mg oral tablet (18 sources) HMG-CoA Reductase Inhibitor Start: 03-30-20 17 take 1 tablet by mouth once daily Rosuvastatin 20 MG tablet Active 20 mg PO DAILY March 30, 2017 1:00am 125 ml sodium chloride 9 mg/ml prefilled syringe (1 source) Start: 11-25-19 End: 12-25-19 sodium chloride 0.9 %, flush, (BD POSIFLUSH) syringe Indications: Cholecystostomy care (HCC) , Cholelithiasis with acute on chronic cholecystitis Inject 10 mL intravenously every 48 hours. 150 mL 11/23/2024 10:45 AM EDT 11/24/2024 12/24/2024 Active telmisartan 20 mg oral tablet (3 sources) Angiotensin 2 Receptor Donna Start: 08-15-19 24 take 10 mg by mouth once daily Telmisartan 20 mg tablet Take 10 mg by mouth once daily. 08/15/2023 Active Start: 08-15-2023 Telmisartan 20 mg tablet once daily. 0 08/15/2023 Active Comment on above: once daily. thiamine 100 mg oral tablet (20 sources) Start: 9 End: take 1 tablet by mouth once daily as needed Thiamine Mononitrate (Vit B1) 100 mg tablet Active 100 mg PO DAILY as needed September 16, 2020 8:10am 7 actuat umeclidinium 0.0625 mg/actuat dry powder inhaler (20 sources) Anticholinergic Start: take 1 puff(s) by inhalation once daily INCRUSE ELLIPTA 62.5 mcg/actuation inhaler Inhale 1 Puff as instructed once daily. 08/08/2023 Active Start: 03-30-2017 take 62.5 ug [...] / HYDROcodone bitartrate 10 mg oral tablet (18 sources) Opioid Agonist Start: 03-30-2017 End: 05-18-2017 [...] mg / clavulanate 125 mg oral tablet (18 sources) Penicillin-class Antibacterial Start: 05-18-2017 End: 05-28-2017 Amoxicillin-Pot Clavulanate (Augmentin) 875-125 mg tablet Discontinued 1 {tbl} PO Q12H 20 10 0 May 18, 2017 1:00am May 27, 2017 1:00am May 28, 2017 1:10am Acute sinusitis, unspecified irbesartan 75 mg oral tablet (19 sources) Angiotensin 2 Receptor Donna Start: 09-16-2020 End: 11-19-2024 take 1 tablet by mouth once daily Irbesartan 75 mg tablet Discontinued 75 mg PO DAILY September 16, 2020 12:00am November 19, 2024 8:27pm magnesium oxide 400 mg oral tablet (18 sources) Start: 03-30-2017 End: 09-16-2020 take 1 tablet by mouth once daily Magnesium Oxide 400 MG tablet Discontinued 400 mg PO DAILY March 30, 2017 1:00am September 16, 2020 8:10am omega-3 acid ethyl esters (alf) 1000 mg oral capsule (18 sources) Start: 12-31-2020 End: 04-07-2021 take 1 capsule by mouth twice daily at mealtime [place]-3 Acid Ethyl Esters (Lovaza) 1 gram capsule Discontinued 2 NMA PO TWICE A DAY 120 December 31, 2020 12:00am April 07, 2021 12:59pm Take with food predniSONE 20 mg oral tablet (18 sources) Start: 03-30-2017 End: 08-17-2018 take 2 [...] With food primidone 50 mg oral tablet (18 sources) Anti-epileptic Agent Start: 09-16-2020 End: 11-19-2020 [...] Date Documented Da te Episodic/Chronic Alcohol-related disorders (20 sources) Alcoholism; Translations: [Alcohol dependence, uncomplicated] Onset: 08-25-2023 08-05-2021 Chronic Biliary tract disease (20 sources) Cholelithiasis without obstruction; Translations: [Calculus of gallbladder without cholecystitis without obstruction] Onset: 11-20-2024 Resolved: 11-23-2024 08-28-2023 Episodic Chronic obstructive pulmonary disease and bronchiectasis (1 source) Chronic obstructive pulmonary disease, unspecified; Translations: [Chronic obstructive pulmonary disease, unspecified] Onset: 07-13-2024 Chronic Conditions associated with dizziness or vertigo (20 sources) Lightheadedness; Translations: [Dizziness and giddiness] Onset: 08-25-2023 09-16-2020 Episodic Disorders of lipid metabolism (20 sources) Hyperlipidemia; Translations: [Hyperlipidemia, unspecified] Onset: 04-15-2023 12-31-2020 Chronic Essential hypertension (1 source) Essential (primary) hypertension; Translations: [Essential (primary) hypertension] Onset: 12-14-2024 Chronic Nonspecific chest pain (14 sources) Chest wall pain; Translations: [Other chest pain] Onset: 07-08-2023 07-03-2023 Episodic Occlusion or stenosis of precerebral arteries (20 sources) Bilateral stenosis of carotid arteries; Translations: [Occlusion and stenosis of bilateral carotid arteries] Onset: 11-11-2022 02-02-2022 Chronic Other gastrointestinal disorders (1 source) Encounter for attention to other artificial openings of digestive tract; Translations: [Cholecystostomy care (HCC)] Onset: 11-20-2024 Chronic Other gastrointestinal disorders (13 sources) H/O: gallstones; Translations: [Personal history of other diseases of the digestive system] Onset: 08-25-2023 Resolved: 12-07-2024 07-03-2023 Episodic Other gastrointestinal disorders (10 sources) H/O: liver disease; Translations: [Personal history of other diseases of the digestive system] 07-03-2023 Episodic Other hereditary and degenerative nervous system conditions (20 sources) Essential tremor; Translations: [Essential tremor] 02-02-2022 Chronic Other hereditary and degenerative nervous system conditions (20 sources) Hereditary essential tremor; Translations: [Essential tremor] Onset: 08-25-2023 09-16-2020 Chronic Other hereditary and degenerative nervous system conditions (6 sources) Essential tremor; Translations: [Essential and other specified forms of tremor] 11-02-2022 Chronic Other liver diseases (20 sources) Elevated liver enzymes level; Translations: [High liver transaminase level] Onset: 08-25-2023 09-16-2020 Episodic Other screening for suspected conditions (not mental disorders or infectious disease) (1 source) Encounter for screening for malignant neoplasm of prostate; Translations: [Encounter for screening for malignant neoplasm of prostate] Onset: 12-28-2024 Episodic Other upper respiratory infections (20 sources) Acute sinusitis; Translations: [Acute sinusitis, unspecified] Onset: 08-25-2023 05-18-2017 Episodic Pancreatic disorders (not diabetes) (14 sources) Gallstone pancreatitis; Translations: [Biliary acute pancreatitis without necrosis or infection] Onset: 11-21-2024 11-19-2024 Episodic Substance-related disorders (2 sources) Nicotine dependence, unspecified, uncomplicated; Translations: [Tobacco use disorder] Onset: 11-20-2024 11-20-2024 Chronic Superficial injury; contusion (20 sources) Contusion of left chest wall; Translations: [Contusion of left front wall of thorax, initial encounter] Onset: 08-25-2023 04-07-2018 Episodic Thyroid disorders (1 source) Hypothyroidism, unspecified; Translations: [Hypothyroidism, unspecified] Onset: 12-12-2024 Chronic Past or Other Problems Problem Classification Problem Date Documented Da te Episodic/Chronic Fluid and electrolyte disorders (2 sources) Hypo-osmolality and hyponatremia; Translations: [Hypo-osmolality and hyponatremia] Onset: 01-22-2024 Episodic Residual codes; unclassified (1 source) Delirium; Translations: [Disorientation, unspecified] Onset: 11-20-2024 Resolved: 11-23-2024 11-23-2024 Episodic Results Test Name Value Interpretation Reference Range Facility [facility] 01-02-2025 [facility] Telephone ([id number]) FAHAD KIRK JR ([id number]) 1955 [facility] Date Time Provider Department 01/02/25 ROBERTO RAMON [id number] During your visit today, we recorded the following information about you: Barry Warner LPN 01/02/2025 9:45 AM Signed Received message from patients , Rocio, she states that Fahad had cholangiogram done yesterday and would like to know if surgery is needed and if so can we get it scheduled. Please advise, thank you! Barry Warner LPN January 02, 2025 9:43 AM Allergies As of Date: 01/02/2025 (No Known Allergies) Date Reviewed: 01/01/2025 Reviewed by: Ellen Pereira, RN - Fully Assessed Reason for Visit: Appointment [[id number]] Cmt: scheduling possible surgery Prescriptions as of 01/02/2025 - albuterol HFA (PROVENTIL HFA, VENTOLIN HFA) 90 mcg/actuation inhaler Inhale 8 puffs as instructed every 6 hours as needed for wheezing/shortness of breath. - levothyroxine (SYNTHROID) 25 mcg tablet Take 25 mcg by mouth daily before breakfast. - propranolol ER (INDERAL LA) 60 mg 24 hr capsule Take 60 mg by mouth once daily. - Telmisartan 20 mg tablet Take 10 mg by mouth once daily. - INCRUSE ELLIPTA 62.5 mcg/actuation inhaler Inhale 1 Puff as instructed once daily. - atorvastatin (LIPITOR) 40 mg tablet Take 1 tablet by mouth every afternoon. - MULTIVITAMIN ORAL Take by mouth once daily. - ascorbic acid (VITAMIN C ORAL) Take by mouth once daily. - LOW-DOSE ASPIRIN ORAL Take by mouth once daily. - potassium citrate ER (UROCIT-K) 10 mEq (1,080 mg) Take 1,080 mg by mouth once daily. Problem List As Of Date 01/02/2025 Noted Resolved Acute sinusitis [J01.90] 08/25/2023 Diagnosed: 08/25/2023 Alcoholism (HCC) [F10.20] 08/25/2023 Diagnosed: 08/25/2023 Bilateral carotid artery stenosis [I65.23] 11/11/2022 Diagnosed: 08/25/2023 Chest wall pain [R07.89] 07/08/2023 Diagnosed: 08/25/2023 Contusion of left chest wall [S20.212A] 08/25/2023 Diagnosed: 08/25/2023 Elevation of levels of liver transaminase level*08/25/2023 Diagnosed: 08/25/2023 Hereditary essential tremor [G25.0] 08/25/2023 Diagnosed: 08/25/2023 History of cholelithiasis [Z87.19] 08/25/2023 12/07/2024 Diagnosed: 08/25/2023 Hyperlipidemia [E78.5] 04/15/2023 Diagnosed: 08/25/2023 Lightheadedness [R42] 08/25/2023 Diagnosed: 08/25/2023 Cholelithiasis with acute on chronic cholecysti*11/20/2024 11/23/2024 Delirium [R41.0] 11/20/2024 11/23/2024 Nicotine use disorder, F17.2 [F17.200] 11/20/2024 Gallstone pancreatitis (HCC) [K85.10] 11/21/2024 Encounter Status:Closed by BARRY WARNER on 01/02/25 [facility] BRIEF OP NOTon 01-01-2025 BRIEF OP NOT HNO ID: [id number] Author: GEREMIAS MARTI DO Service: Interventional Radiology Author Type: Physician Type: Brief Op Note Filed: 01/01/2025 11:08 Note Text: BRIEF OPERATIVE / PROCEDURE NOTE LOG ID: [id number] SURGERY/PROCEDURE DATE: 01/01/2025 INCISION/PROCEDURE START TIME: 10:55 AM INCISION CLOSE/PROCEDURE END TIME: 10:58 AM SURGEON(S)/PROCEDURALI ST(S) AND PATIENT SAFETY ATTENDANT(S): Surgeons and Role: * Geremias Marti, - Primary No Additional Staff SURGERY/PROCEDURE(S): Cholecystogram and cholecystostomy exchange ANESTHESIA: Local FINDINGS: Contrast injected through indwelling cholecystostomy tube showing large filling defects compatible with cholelithiasis. Cholecystostomy exchanged over a wire for new 8F drain. Initial images showed no contrast passage through the cystic duct with large stone in the gallbladder neck, however after exchange and flushing the new catheter, some delayed transit of contrast was seen through the cystic duct and common bile duct into the duodenum, suggesting intermittent obstruction. ESTIMATED BLOOD LOSS: 0 ml SPECIMENS: None Intraoperative Complication/Events: None PRE-OP/PRE-PROCEDURE DIAGNOSIS: Chronic cholecystitis POST-OP/POST-PROCEDURE DIAGNOSIS: Same as Preop SIGNATURE: Geremias Marti DO PATIENT NAME: Fahad Kirk Jr DATE: January 01, 2025 TIME: 11:06 AM [facility] GI CHOLANGIOGRAM T-TUBEon GI CHOLANGIOGRAM T-TUBE * * *Final Repor t* * * DATE OF EXAM: Jan 01 2025 11:16AM A [id number] - GI CHOLANGIOGRAM T-TUBE / PROCEDURE REASON: Acute cholecystitis with chronic cholecystitis * * * * Physician Interpretation * * * * PROCEDURE: Cholecystostomy DRAIN EXCHANGE Procedural Personnel Attending physician(s): Geremias Marti D.O. Fellow physician(s): None Resident physician(s): None Advanced practice provider(s): None Medical Student(s): None Pre-procedure diagnosis: Cholecystitis Post-procedure diagnosis: Same Indication: Routine scheduled exchange Additional clinical history: None ____ PROCEDURE SUMMARY: - Transhepatic cholecystogram via the existing access - Exchange of percutaneous cholecystostomy drain as described below - Additional procedure(s): None PROCEDURE DETAILS: Pre-procedure [...] and procedure-specific equipment needs. Start of procedure: 1055 End of procedure: 1058 Patient position: Supine Preparation: The site was prepared and draped using all elements of maximal sterile barrier technique including sterile gloves, sterile gown, cap, mask, large sterile sheet, hand hygiene and cutaneous antisepsis. Antibiotics: None Antibiotic infusion start time: N/A Prophylactic antibiotic administered: None Additional med: None Additional med: None Contrast Contrast agent: VISPAQUE 270 Contrast volume (mL): 6 Image Guidance Fluoroscopic guidance. FLUOROSCOPIC RADIATION SUMMARY: Plane A, Air Kerma: 4.0 mGy Dose Area Product (DAP): Fluoro Time: 0:36 min:sec Radiation dose exceed 5 Gy: No If radiation dose exceeded 5 Gy, was counseling and instructional brochure provided: N/A Anesthesia/sedation Level of anesthesia/sedation: No sedation Anesthesia/sedation administered by: Not applicable Total intra-service sedation time (minutes): 0 minutes Local anesthesia: 1 % lidocaine Percutaneous cholecystostomy drain Local anesthesia was administered. Contrast was injected through the indwelling gallbladder drain. A guidewire was passed into the gallbladder and a new cholecystostomy drainage catheter was placed. Contrast injection was performed. Initial cholangiogram findings: Mildly distended gallbladder with large filling defect in the gallbladder neck compatible with cholelithiasis and no opacification of the cystic duct. New biliary drain: 8 F [facility] all purpose drainage catheter Catheter modification: None Final cholangiogram findings: Post exchange image shows dislodgment of the stone which was previously seen in the gallbladder neck, now with contrast passage through the cystic duct and common bile duct into the small bowel. External catheter securement: Non-absorbable suture Additional biliary intervention Biliary intervention: None Location of intervention: Not applicable Device used: Not applicable Description of intervention: Not applicable Post-intervention findings: Not applicable Additional Details Additional description of procedure: None Equipment details: None Number and Type of Removed Specimens: 0: N/A Estimated blood loss (mL): Less than 10 Standardized report: [email or web address] Complications There were no immediate complications and no other complications. Conclusion The patient was comfortable and was transferred to the recovery room in stable condition. The procedure was performed by the: attending radiologist, without an clinical assistant professor. The attending radiologist performed the following procedural activities: Entire procedure IMPRESSION: UNEVENTFUL EXCHANGE OF CHOLECYSTOSTOMY CATHETER. PLAN: Flush catheter daily with sterile normal saline to maintain patency. Catheter may be allowed to drain passively into bag u (more content not included)... [facility] IR BILIARY DRAIN CHANGEon IR BILIARY DRAIN CHANGE * * *Final Repor t* * * DATE OF EXAM: Jan 01 2025 11:16AM A 0734 - IR BILIARY DRAIN CHANGE / PROCEDURE REASON: Acute cholecystitis with chronic cholecystitis * * * * Physician Interpretation * * * * PROCEDURE: Cholecystostomy DRAIN EXCHANGE Procedural Personnel Attending physician(s): Geremias Marti D.O. Fellow physician(s): None Resident physician(s): None Advanced practice provider(s): None Medical Student(s): None Pre-procedure diagnosis: Cholecystitis Post-procedure diagnosis: Same Indication: Routine scheduled exchange Additional clinical history: None ____ PROCEDURE SUMMARY: - Transhepatic cholecystogram via the existing access - Exchange of percutaneous cholecystostomy drain as described below - Additional procedure(s): None PROCEDURE DETAILS: Pre-procedure [...] and procedure-specific equipment needs. Start of procedure: 1055 End of procedure: 1058 Patient position: Supine Preparation: The site was prepared and draped using all elements of maximal sterile barrier technique including sterile gloves, sterile gown, cap, mask, large sterile sheet, hand hygiene and cutaneous antisepsis. Antibiotics: None Antibiotic infusion start time: N/A Prophylactic antibiotic administered: None Additional med: None Additional med: None Contrast Contrast agent: VISPAQUE 270 Contrast volume (mL): 6 Image Guidance Fluoroscopic guidance. FLUOROSCOPIC RADIATION SUMMARY: Plane A, Air Kerma: 4.0 mGy Dose Area Product (DAP): Fluoro Time: 0:36 min:sec Radiation dose exceed 5 Gy: No If radiation dose exceeded 5 Gy, was counseling and instructional brochure provided: N/A Anesthesia/sedation Level of anesthesia/sedation: No sedation Anesthesia/sedation administered by: Not applicable Total intra-service sedation time (minutes): 0 minutes Local anesthesia: 1 % lidocaine Percutaneous cholecystostomy drain Local anesthesia was administered. Contrast was injected through the indwelling gallbladder drain. A guidewire was passed into the gallbladder and a new cholecystostomy drainage catheter was placed. Contrast injection was performed. Initial cholangiogram findings: Mildly distended gallbladder with large filling defect in the gallbladder neck compatible with cholelithiasis and no opacification of the cystic duct. New biliary drain: 8 F argon skater all purpose drainage catheter Catheter modification: None Final cholangiogram findings: Post exchange image shows dislodgment of the stone which was previously seen in the gallbladder neck, now with contrast passage through the cystic duct and common bile duct into the small bowel. External catheter securement: Non-absorbable suture Additional biliary intervention Biliary intervention: None Location of intervention: Not applicable Device used: Not applicable Description of intervention: Not applicable Post-intervention findings: Not applicable Additional Details Additional description of procedure: None Equipment details: None Number and Type of Removed Specimens: 0: N/A Estimated blood loss (mL): Less than 10 Standardized report: [email or web address] [email or web address] Complications There were no immediate complications and no other complications. Conclusion The patient was comfortable and was transferred to the recovery room in stable condition. The procedure was performed by the: attending radiologist, without an clinical assistant professor. The attending radiologist performed the following procedural activities: Entire procedure IMPRESSION: UNEVENTFUL EXCHANGE OF CHOLECYSTOSTOMY CATHETER. PLAN: Flush catheter daily with sterile normal saline to maintain patency. Catheter may be allowed to drain passively into bag u (more content not included)... Normal [facility] Duplex ultrasound of carotid artery reportOrdered By: Dougie Mata on 12-26-2024 Study report [facility] [address] [place] [address] Carotid Duplex Ultrasound 12/25/24 0811 MR#: [id number] Acct: [id number] Name: FAHAD KIRK Rep #:[id number] : 1955 69 From: Dougie Mata MD Attending Dr: Dr. Tuan Foster MD Status: REG CLI Ordering Dr: Tuan Foster MD Date: 12/25/24 Location: CVS Sex: M C Admitted: Reason For Study Reason For Study: Bilateral ICA Stenosis Rt. Velocities/BP Lt. Velocities/BP Prox CCA 88.6/7.5 cm/sec. Prox CCA 86.7/16.7 cm/sec. Mid CCA 54.6/11.9 cm/sec. Mid CCA 85.5/21.6 cm/sec. Dist CCA 47.5/10.9 cm/sec. Dist CCA 81.8/17.9 cm/sec. Prox ICA 121.6/32.1 cm/sec. Prox ICA 116.2/30.3 cm/sec. Mid ICA 118.0/28.5 cm/sec. Mid ICA 112.5/30.3 cm/sec. Dist ICA 103.4/24.8 cm/sec. Dist ICA 101.6/21.2 cm/sec. Rt. ICA/CCA = 2.2. Lt. ICA/CCA = 1.4. Prox ECA 123.4/9.3 cm/sec. Prox ECA 102.7/10.6 cm/sec. Rt. Vert. 55.4/13.8 cm/sec. Lt. Vert. 57.2/13.8 cm/sec. Right Extracranial There is heterogeneous, irregular atherosclerotic plaque noted in the right common carotid artery. There is heterogeneous, irregular atherosclerotic plaque noted in the right internal carotid artery. The atherosclerotic plaque causes acoustic shadowing. There is heterogeneous, irregular atherosclerotic plaque noted in the right external carotid artery. Antegrade flow is noted in the right vertebral artery. Left Extracranial There is heterogeneous, irregular atherosclerotic plaque noted in the left common carotid artery. There is heterogeneous, irregular atherosclerotic plaque noted in the left internal carotid artery. The atherosclerotic plaque causes acoustic shadowing. There is heterogeneous, irregular atherosclerotic plaque noted in the left external carotid artery. Antegrade flow is noted in the left vertebral artery. Procedure Carotid Duplex 63193. This is a Carotid Duplex examination using B-mode, color flow and specral Doppler. The exam was diagnostic. Exam performed in department. VL/Carotid Duplex Ultrasound Interpretation Summary Mild (<50%) stenosis right extracranial internal carotid. Mild (<50%) stenosis left extracranial internal carotid. Flow within the vertebral arteries is antegrade bilaterally. Ordering Physician: Tuan Foster Referring Physician: Gosia Delaney Performed By: Rob Sharma Maria Luz 12/26/242102 Date _ Dougie Mata MD CC: Dr. Gosia Delaney MD; Dr. Tuan Foster MD ~ Date Dictated: 12/25/24810 Date Transcribed: 12/26/242102 Motorcycle Deliverer: Signed [facility] Other Phone: Carotid Duplex Ultrasoundon 12-25-2024 Carotid Duplex Ultrasound [facility] [address] [place] [address] Carotid Duplex Ultrasound 12/25/24810 MR#: [id number] Acct: [id number] Name: FAHAD KIRK Rep #: [id number] : 1955 69 From: Dougie Mata MD Attending Dr: Dr. Tuan Foster MD Status: R EG CLI Ordering Dr: Tuan Foster MD Date: 12/25/24 Location: CVS Sex: M C Admitted: Reason For Study Reason For Study: Bilateral ICA Stenosis Rt. Velocities/BP Lt. Velocities/BP Prox CCA 88.6/7.5 cm/sec. Prox CCA 86.7/16.7 cm/sec. Mid CCA 54.6/11.9 cm/sec. Mid CCA 85.5/21.6 cm/sec. Dist CCA 47.5/10.9 cm/sec. Dist CCA 81.8/17.9 cm/sec. Prox ICA 121.6/32.1 cm/sec. Prox ICA 116.2/30.3 cm/sec. Mid ICA 118.0/28.5 cm/sec. Mid ICA 112.5/30.3 cm/sec. Dist ICA 103.4/24.8 cm/sec. Dist ICA 101.6/21.2 cm/sec. Rt. ICA/CCA = 2.2. Lt. ICA/CCA = 1.4. Prox ECA 123.4/9.3 cm/sec. Prox ECA 102.7/10.6 cm/sec. Rt. Vert. 55.4/13.8 cm/sec. Lt. Vert. 57.2/13.8 cm/sec. Right Extracranial There is heterogeneous, irregular atherosclerotic plaque noted in the right common carotid artery. There is heterogeneous, irregular atherosclerotic plaque noted in the right internal carotid artery. The atherosclerotic plaque causes acoustic shadowing. There is heterogeneous, irregular atherosclerotic plaque noted in the right external carotid artery. Antegrade flow is noted in the right vertebral artery. Left Extracranial There is heterogeneous, irregular atherosclerotic plaque noted in the left common carotid artery. There is heterogeneous, irregular atherosclerotic plaque noted in the left internal carotid artery. The atherosclerotic plaque causes acoustic shadowing. There is heterogeneous, irregular atherosclerotic plaque noted in the left external carotid artery. Antegrade flow is noted in the left vertebral artery. Procedure Carotid Duplex 22585. This is a Carotid Duplex examination using B-mode, color flow and specral Doppler. The exam was diagnostic. Exam performed in department. VL/Carotid Duplex Ultrasound Interpretation Summary Mild (<50%) stenosis right extracranial internal carotid. Mild (<50%) stenosis left extracranial internal carotid. Flow within the vertebral arteries is antegrade bilaterally. Ordering Physician: Tuan Foster Referring Physician: Gosia Delaney Performed By: Rob Sharma RVT 12/26/242102 Date Dougie Mata MD CC: Dr. Gosia Delaney MD; Dr. Tuan Foster MD Date Dictated: 12/25/24810 Date Transcribed: 12/26/242102 Motorcycle Deliverer: Signed Normal [facility] PSA,Total - Annual Screenon 12-21-2024 PSA,TOT SCREEN 0.45 ng/mL Normal 0.02-4.00 [facility] Comment on above: Order Comment: Inter face Comments:screening for prostate cancerOrder Date: 12/21/24Order Info: 2857-1 - PSAComments: screening for prostate cancer Result Comment: This test was performed using the [employer] tPSA method. Measured values of a patient??sample can vary depending on the testing procedure used. PSA values determined on patient samples by different testing procedures cannot be used interchangeably. If there is a change in PSA assays while monitoring therapy, sequential testing should be performed to confirm baseline values. Performed By: #### L 501.080 #### [facility] [address] [place], [address] CNOVon 12-07-2024 CNOV Office Visit ([id number]) FAHAD KIRK JR ([id number]) 1955 [facility] Date Time Provider Department 12/07/24 1:30 PM ROBERTO RAMON [id number] During your visit today, we recorded the following information about you: Pulse Respiration Blood pressure Weight 62/minute 18/minute 126/82 49.9 kg Height 1.575 m Roebrto Ramon MD 12/07/2024 2:04 PM S[address] [facility] MEDICAL OFFICE BUILDING [facility] SURGERY [address] [facility] [id number] Fahad Kirk Jr 1955 December 07, 2024 Office Visit-New Patient Visit Consultation requested by Dr. Delaney for an opinion regarding cholecystitis. My final recommendations will be communicated back to the requesting physician by way of shared Medical record or letter to requesting physician via US mail. CC: New Patient (Gallbladder issues) History of Present Illness: Patient is a 69-year-old man who was recently admitted for cholecystitis. He was a transfer from [place]. We were not told that the patient was combative during initial cholecystostomy tube placement. He was transferred up here. He was very confused at the time. Now he seems much more lucid. No issues with the cholecystostomy tube. I did review the op note at the time tube was placed. An outpatient cholangiogram was ordered but was not scheduled. He is here to discuss potential gallbladder removal. PAST MEDICAL HISTORY Diagnosis Date Carotid atherosclerosis [...] use: Yes Comment: occasional Drug use: Never REVIEW OF SYSTEMS: EYES/ENT:Denies blurring or double vision, ear aches, hearing loss or ringing, nose bleeds, dental problems and sore throat/hoarseness. CV: Denies swelling of feet/ankle and pain with walking GI:Denies abdominal pain, nausea, vomiting, diarrhea, constipation, blood in BM's, indigestion/heartburn, dysphagia and odynophagia. HEME: Denies slow to heal, anemia, bleeding/bruising and swollen glands. MS:Denies cold extremities. SKIN/BREAST:Denies rash/itching, breast pain, breast lump, nipple discharge, nipple bleeding and breast enlarged. The review of systems is negative for General, Resp, Derm, Neur, Psych, Endo and Current Outpatient Medications Medication Sig Dispense Refill sodium chloride 0.9 %, flush, (BD POSIFLUSH) syringe Inject 10 mL intravenously every 48 hours. 150 mL 0 albuterol HFA (PROVENTIL HFA, VENTOLIN HFA) 90 mcg/actuation inhaler Inhale 8 puffs as instructed every 6 hours as needed for wheezing/shortness of breath. levothyroxine (SYNTHROID) 25 mcg tablet Take 25 mcg by mouth daily before breakfast. propranolol ER (INDERAL LA) 60 mg 24 hr capsule Take 60 mg by mouth once daily. Telmisartan 20 mg tablet Take 10 mg by mouth once daily. INCRUSE ELLIPTA 62.5 mcg/actuation inhaler Inhale 1 Puff as instructed once daily. atorvastatin (LIPITOR) 40 mg tablet Take 1 tablet by mouth every afternoon. MULTIVITAMIN ORAL Take by mouth once daily. ascorbic acid (VITAMIN C ORAL) Take by mouth once daily. LOW-DOSE ASPIRIN ORAL Take by mouth once daily. potassium citrate ER (UROCIT-K) 10 mEq (1,080 mg) Take 1,080 mg by mouth once daily. No current facility-administered medications for this visit. ALLERGIES No Known Allergies PHYSICAL EXAM: BP 126/82 Pulse 62 Resp 18 Ht 5' 2 (1.58m) Wt 110 lb (49.9kg) SpO2 100% BMI 20.11 kg/(m2). GENERAL: Alert, no distress, cooperative SKIN: Skin color, texture, turgor normal. No rashes or lesions. LUNGS: Lungs clear to auscultation, Good diaphragmatic excursion CARDIAC: Normal S1 and S2; no rubs, murmurs, or gallops ABDOMEN: Soft, nondistended. Cholecystostomy tube EXTREMITIES: Extremities normal, no deformities, edema, clubbing or skin discoloration. Good capillary refill., No ulcers NEURO: Cranial nerves II-XII intact The remainder of the physical exam is noncontributory. IMPRESSION AND RECOMMENDATIONS ASSESSMENT/PLAN: 1. Acute cholecystitis with chronic cholecystitis - ICD9: 575.12, ICD10: K81.2 Will plan for an outpatient cholangiogram prior to cholecystectomy. I discussed this with the erica (more content not included)... Normal [facility] Urine Sodiumon 12-07-2024 UR NA < 20 Normal Not Establ. [facility] Comment on above: Order Comment: ADD O N URINE SODIUM-SWRIGHTOrder Date: 12/06/24Order Info: 2695-5 - [facility] Performed By: #### L 501.4021, L100.0100, L500.2500 #### [facility] [address] [place], [place], [address] Anion gap in Serum or Plasma Ordered By: Gosia Delaney on 12-06-2024 Anion gap [Moles/Vol] 11 mmol/L 5-15 [facility] BUN/creatinine ratioOrdered By: Gosia Delaney on 12-06-2024 Urea nitrogen/Creatinine [Mass ratio] 15.9 mg/mg 10-20 [facility] Bilirubin, totalOrdered By: Gosia Delaney on 12-06-2024 Bilirubin [Mass/Vol] 0.33 mg/dL 0.00-1.30 [facility] Carbon dioxide, total [Moles /volume] in Central venous bloodOrdered By: Gosia Delaney on 12-06-2024 CO2 [Moles/Vol] 25.8 mmol/L 21.0-32.0 [facility] Chloride assayOrdered By: Joni Delaney on 12-06-2024 Chloride [Moles/Vol] 90 mmol/L Low 98-108 [facility] Comprehensive Metabolic Prof ilon 12-06-2024 Albumin [Mass/Vol] 4.3 g/dL Normal 3.4-4.8 [facility] Comment on above: Order Comment: Order Date: 01/21/24Order Info: 666- - BMPOrder Date: 12/06/24Order Info: 0786-1 - CMP Performed By: #### L 501.4021, L100.0100, L500.2500 #### [facility] [address] [place], [address] Albumin/Globulin [Mass ratio] 1.6 {ratio} Normal 0.9-2.4 [facility] Comment on above: Order Comment: Order Date: 01/21/24Order Info: 666- - BMPOrder Date: 12/06/24Order Info: 0786-1 - CMP Performed By: #### L 501.4021, L100.0100, L500.2500 #### [facility] [address] [place], [address] ALK PHOS 70 U/L Normal 40-129 [facility] Comment on above: Order Comment: Order Date: 01/21/24Order Info: 666-05 - BMPOrder Date: 12/06/24Order Info: 0786-1 - CMP Performed By: #### L 501.4021, L100.0100, L500.2500 #### [facility] [address] [place], [address] ALT [Catalytic activity/Vol] 29 U/L Normal <=46 [facility] Comment on above: Order Comment: Order Date: 01/21/24Order Info: 666-05 - BMPOrder Date: 12/06/24Order Info: 0786-1 - CMP Performed By: #### L 501.4021, L100.0100, L500.2500 #### [facility] [address] [place], [address] AST [Catalytic activity/Vol] 24 U/L Normal <=37 [facility] Comment on above: Order Comment: Order Date: 01/21/24Order Info: 06- - BMPOrder Date: 12/06/24Order Info: 0786-1 - CMP Performed By: #### L 501.4021, L100.0100, L500.2500 #### [facility] [address] [place], [address] Bilirubin [Mass/Vol] 0.33 mg/dL Normal 0.00-1.30 [facility] Comment on above: Order Comment: Order Date: 01/21/24Order Info: 666-05 - BMPOrder Date: 12/06/24Order Info: 07- - CMP Performed By: #### L 501.4021, L100.0100, L500.2500 #### [facility] [address] [place], [address] BUN/CRE 15.9 RATIO Normal 10-20 [facility] Comment on above: Order Comment: Order Date: 01/21/24Order Info: 666-05 - BMPOrder Date: 12/06/24Order Info: 785- - CMP Performed By: #### L 501.4021, L100.0100, L500.2500 #### [facility] [address] [place], [address] Calcium [Mass/Vol] 9.6 mg/dL Normal 7.6-11.0 [facility] Comment on above: Order Comment: Order Date: 01/21/24Order Info: 666-05 - BMPOrder Date: 12/06/24Order Info: 0786- - CMP Performed By: #### L 501.4021, L100.0100, L500.2500 #### [facility] [address] [place], [address] Chloride [Moles/Vol] 90 mmol/L Low 98-108 [facility] Comment on above: Order Comment: Order Date: 01/21/24Order Info: 666-05 - BMPOrder Date: 12/06/24Order Info: 785- - CMP Performed By: #### L 501.4021, L100.0100, L500.2500 #### [facility] [address] [place], [address] CO2 [Moles/Vol] 25.8 mmol/L Normal 21.0-32.0 [facility] Comment on above: Order Comment: Order Date: 01/21/24Order Info: 666- - BMPOrder Date: 12/06/24Order Info: 0786-1 - CMP Performed By: #### L 501.4021, L100.0100, L500.2500 #### [facility] [address] [place], [address] Creatinine [Mass/Vol] 1.24 mg/dL High 0.70-1.20 [facility] Comment on above: Order Comment: Order Date: 01/21/24Order Info: 666- - BMPOrder Date: 12/06/24Order Info: 07- - CMP Performed By: #### L 501.4021, L100.0100, L500.2500 #### [facility] [address] [place], [address] GAP 11 Normal 5-15 [facility] Comment on above: Order Comment: Order Date: 01/21/24Order Info: 67- - BMPOrder Date: 12/06/24Order Info: 0786- - CMP Performed By: #### L 501.4021, L100.0100, L500.2500 #### [facility] [address] [place], [address] GFR/1.73 sq M.predicted among non-blacks MDRD (S/P/Bld) [Vol rate/Area] 62 mL/min/{1.73_m2} Normal >60 [facility] Comment on above: Order Comment: Order Date: 01/21/24Order Info: 0667- - BMPOrder Date: 12/06/24Order Info: 0786-1 - CMP Result Comment: mL/m in/1.73m2 CKD-EPI Creatinine Equation (2020) Performed By: #### L 501.4021, L100.0100, L500.2500 #### [facility] [address] [place], [address] Globulin (S) [Mass/Vol] 2.6 g/dL Normal 2.2-4.2 [facility] Comment on above: Order Comment: Order Date: 01/21/24Order Info: 666- - BMPOrder Date: 12/06/24Order Info: 07-1 - CMP Performed By: #### L 501.4021, L100.0100, L500.2500 #### [facility] [address] [place], [address] Glucose [Mass/Vol] 110 mg/dL High 70-99 [facility] Comment on above: Order Comment: Order Date: 01/21/24Order Info: 666-05 - BMPOrder Date: 12/06/24Order Info: 07- - CMP Performed By: #### L 501.4021, L100.0100, L500.2500 #### [facility] [address] [place], [address] Potassium [Moles/Vol] 4.3 mmol/L Normal 3.3-5.1 [facility] Comment on above: Order Comment: Order Date: 01/21/24Order Info: 666-05 - BMPOrder Date: 12/06/24Order Info: 0786- - CMP Performed By: #### L 501.4021, L100.0100, L500.2500 #### [facility] [address] [place], [address] Sodium [Moles/Vol] 127 mmol/L Low 133-145 [facility] Comment on above: Order Comment: Order Date: 01/21/24Order Info: 666-05 - BMPOrder Date: 12/06/24Order Info: 07- - CMP Performed By: #### L 501.4021, L100.0100, L500.2500 #### [facility] [address] [place], [address] T PROT 6.9 g/dL Normal 5.9-8.4 [facility] Comment on above: Order Comment: Order Date: 01/21/24Order Info: 0667-1 - BMPOrder Date: 12/06/24Order Info: 0786-1 - CMP Performed By: #### L 501.4021, L100.0100, L500.2500 #### [facility] [address] [place], [address] Urea nitrogen [Mass/Vol] 20 mg/dL High 4-19 [facility] Comment on above: Order Comment: Order Date: 01/21/24Order Info: 0667-1 - BMPOrder Date: 12/06/24Order Info: 0786-1 - CMP Performed By: #### L 501.4021, L100.0100, L500.2500 #### [facility] [address] [place], [address] Glomerular filtration rate ( GFR) estimation/1.73 sq m using serum, plasma, or whole bOrdered By: Gosia Delaney on 12-06-2024 GFR/1.73 sq M.predicted among non-blacks MDRD (S/P/Bld) [Vol rate/Area] 62 mL/min/{1.73_m2} >60 [facility] Comment on above: mL/min/1.73m2 CKD-EP I Creatinine Equation (2020) Laboratory - Chemistry and C hemistry - challengeOrdered By: Gosia Delaney on 12-06-2024 AST [Catalytic activity/Vol] 24 U/L <38 [facility] Osmolality urOrdered By: Julia Delaney on 12-06-2024 Osmolality (U) [Osmolality] 651 mOsm/KG >50 [facility] Comment on above: Normal Urine Referen ce Ranges Random: 50 - 1200 mOsm/kg H20 depending on fluid intake Random: >850 mOsm/kg after 12 hour fluid restriction 24 hour: ~300 - 900 mOsm/kg H2O Osmolality, Urineon 12-07-19 25 OSMOLALITY,UR 651 mOsm/KG Normal [facility] Comment on above: Order Comment: Order Date: 12/06/24Order Info: 2695-5 - [facility] Result Comment: Normal Urine Reference Ranges Random: 50 - 1200 mOsm/kg H20 depending on fluid intake Random: >850 mOsm/kg after 12 hour fluid restriction 24 hour: 300 - 900 mOsm/kg H2O Performed By: #### L 501.4021, L100.0100, L500.2500 #### [facility] [address] [place], [address] Potassium measurement (mass/ volume)Ordered By: Gosia Delaney on 12-06-2024 Potassium (Unsp spec) [Mass/Vol] 4.3 mmol/L 3.3-5.1 [facility] Serum creatinine measurement (mass/volume)Ordered By: Gosia Delaney on 12-06-2024 Creatinine [Mass/Vol] 1.24 mg/dL High 0.70-1.20 [facility] Serum globulin measurementOr dered By: Gosia Delaney on 12-06-2024 Globulin (S) [Mass/Vol] 2.6 g/dL 2.2-4.2 [facility] Serum glucose measurement (m ass/volume)Ordered By: Gosia Delaney on 12-06-2024 Glucose [Mass/Vol] 110 mg/dL High 70-99 [facility] Serum or plasma alanine gibson otransferase (ALT) measurementOrdered By: Gosia Delaney on 12-06-2024 ALT [Catalytic activity/Vol] 29 U/L <47 [facility] Serum or plasma albumin zac urement (mass/volume)Ordered By: Gosia Delaney on 12-06-2024 Albumin [Mass/Vol] 4.3 g/dL 3.4-4.8 [facility] Serum or plasma albumin/glob ulin mass ratioOrdered By: Gosia Delaney on 12-06-2024 Albumin/Globulin [Mass ratio] 1.6 {ratio} 0.9-2.4 [facility] Serum or plasma alkaline rafa sphatase measurementOrdered By: Gosia Delaney on 12-06-2024 ALP [Catalytic activity/Vol] 70 U/L 40-129 [facility] Serum or plasma calcium zac urement (mass/volume)Ordered By: Gosia Delaney on 12-06-2024 Calcium [Mass/Vol] 9.6 mg/dL 7.6-11.0 [facility] Serum or plasma urea nitroge n measurement (mass/volume)Ordered By: Gosia Delaney on 12-06-2024 Urea nitrogen [Mass/Vol] 20 mg/dL High 4-19 [facility] Sodium levelOrdered By: Gosia Delaney on 12-06-2024 Sodium [Moles/Vol] 127 mmol/L Low 133-145 [facility] Total proteinOrdered By: Julia Delaney on 12-06-2024 Protein [Mass/Vol] 6.9 g/dL 5.9-8.4 [facility] Urine sodium measurement (mo les/volume)Ordered By: Gosia Delaney on 12-06-2024 Sodium (U) [Moles/Vol] mmol/L Not Establ. [facility] Absolute lymphocyte countOrd ered By: Gosia Delaney on 12-04-2024 Lymphocytes Auto (Unsp spec) [#/Vol] 2.28 10*3/uL 0.83-4.51 [facility] Absolute neutrophil countOrd ered By: Gosia Delaney on 12-04-2024 Neutrophils (Bld) [#/Vol] 4.6 10*3/uL 2.0-7.7 [facility] Anion gap in Serum or Plasma Ordered By: Gosia Delaney on 12-04-2024 Anion gap [Moles/Vol] 13 mmol/L 5-15 [facility] Automated lymphocyte count a s percentage of total leukocytesOrdered By: Gosia Delaney on 12-04-2024 Lymphocytes/100 WBC Auto (Unsp spec) 29.2 % 19-41 [facility] BUN/creatinine ratioOrdered By: Gosia Delaney on 12-04-2024 Urea nitrogen/Creatinine [Mass ratio] 10.1 mg/mg 10-20 [facility] Basophil percentageOrdered B y: Gosia Delaney on 12-04-2024 Basophils/100 WBC (Bld) 0.4 % 0-1 [facility] Bilirubin, totalOrdered By: Gosia Delaney on 12-04-2024 Bilirubin [Mass/Vol] 0.41 mg/dL 0.00-1.30 [facility] CBC W/Diff, Automatedon 11-08 Absolute Lymph 2.28 X10 3/uL Normal 0.83-4.51 [facility] Comment on above: Order Comment: Order Date: 12/04/24Order Info: 4-1 - CBCD Performed By: #### L 501.080 #### [facility] [address] [place], [address] Absolute Neut 4.6 X10 3/uL Normal 2.0-7.7 [facility] Comment on above: Order Comment: Order Date: 12/04/24Order Info: 4-1 - CBCD Performed By: #### L 501.080 #### [facility] [address] [place], [address] Basophils/100 WBC (Bld) 0.4 % Normal 0-1 [facility] Comment on above: Order Comment: Order Date: 12/04/24Order Info: 183- - CBCD Performed By: #### L 501.080 #### [facility] [address] [place], [address] Eosinophils/100 WBC (Bld) 3.1 % Normal 0-5 [facility] Comment on above: Order Comment: Order Date: 12/04/24Order Info: 183- - CBCD Performed By: #### L 501.080 #### [facility] [address] [place], [address] Erythrocyte distribution width (RBC) [Ratio] 12.2 % Normal 11.6-14.6 [facility] Comment on above: Order Comment: Order Date: 12/04/24Order Info: 0184-1 - CBCD Performed By: #### L 501.080 #### [facility] [address] [place], [address] Hematocrit (Bld) [Volume fraction] 38.4 % Low 40-54 [facility] Comment on above: Order Comment: Order Date: 12/04/24Order Info: 0184-1 - CBCD Performed By: #### L 501.080 #### [facility] [address] [place], [address] Hemoglobin (Bld) [Mass/Vol] 13.6 g/dL Normal 13.0-16.5 [facility] Comment on above: Order Comment: Order Date: 12/04/24Order Info: 018- - CBCD Performed By: #### L 501.080 #### [facility] [address] [place], [address] IG% 0.500 Normal 0.0-0.9 [facility] Comment on above: Order Comment: Order Date: 12/04/24Order Info: 183- - CBCD Result Comment: IG% - Immature Granulocytes (promyelocytes, myelocytes and metamyelocytes) > 1% indicates that a LEFT SHIFT is Present. Performed By: #### L 501.080 #### [facility] [address] [place], [address] Lymphocytes/100 WBC (Bld) 29.2 % Normal 19-41 [facility] Comment on above: Order Comment: Order Date: 12/04/24Order Info: 018- - CBCD Performed By: #### L 501.080 #### [facility] [address] [place], [address] MCH (RBC) [Entitic mass] 31.1 pg Normal 27.0-32.0 [facility] Comment on above: Order Comment: Order Date: 12/04/24Order Info: 018- - CBCD Performed By: #### L 501.080 #### [facility] [address] [place], [address] MCHC (RBC) [Mass/Vol] 35.4 g/dL Normal 32-36 [facility] Comment on above: Order Comment: Order Date: 12/04/24Order Info: 018-1 - CBCD Performed By: #### L 501.080 #### [facility] [address] [place], [address] MCV (RBC) [Entitic vol] 87.7 fL Normal 80-94 [facility] Comment on above: Order Comment: Order Date: 12/04/24Order Info: 018- - CBCD Performed By: #### L 501.080 #### [facility] [address] [place], [address] Monocytes/100 WBC (Bld) 8.3 % Normal 0-10 [facility] Comment on above: Order Comment: Order Date: 12/04/24Order Info: 0184- - CBCD Performed By: #### L 501.080 #### [facility] [address] [place], [address] Neutrophils/100 WBC (Bld) 58.5 % Normal 47-70 [facility] Comment on above: Order Comment: Order Date: 12/04/24Order Info: 018- - CBCD Performed By: #### L 501.080 #### [facility] [address] [place], [address] Nucleated RBC (Bld) [#/Vol] 0 10*3/uL Normal 0-5 [facility] Comment on above: Order Comment: Order Date: 12/04/24Order Info: 018- - CBCD Performed By: #### L 501.080 #### [facility] [address] [place], [address] Platelet mean volume (Bld) [Entitic vol] 10.3 fL Normal 6.2-12.0 [facility] Comment on above: Order Comment: Order Date: 12/04/24Order Info: 018-1 - CBCD Performed By: #### L 501.080 #### [facility] [address] [place], [address] Platelets (Bld) [#/Vol] 406 10*3/uL Normal 150-450 [facility] Comment on above: Order Comment: Order Date: 12/04/24Order Info: 0184-1 - CBCD Performed By: #### L 501.080 #### [facility] [address] [place], [address] RBC (Bld) [#/Vol] 4.38 10*6/uL Low 4.6-6.2 [facility] Comment on above: Order Comment: Order Date: 12/04/24Order Info: 183- - CBCD Performed By: #### L 501.080 #### [facility] [address] [place], [address] RDW SD 39.5 fl Normal 35.1-43.9 [facility] Comment on above: Order Comment: Order Date: 12/04/24Order Info: 183- - CBCD Performed By: #### L 501.080 #### [facility] [address] [place], [address] WBC (Bld) [#/Vol] 7.8 10*3/uL Normal 4.4-11.0 [facility] Comment on above: Order Comment: Order Date: 12/04/24Order Info: 183- - CBCD Performed By: #### L 501.080 #### [facility] [address] [place], [address] CRPon 12-04-2024 C-REACTIVE PROT < 3.00 Normal 0.0-3.0 [facility] Comment on above: Order Comment: Order Date: 12/04/24Order Info: 0786-1 - CMPOrder Info: [id number] - CRPOrder Info: 3016-3 - TSH Performed By: #### L 501.080 #### [facility] [address] [place], [address] Carbon dioxide, total [Moles /volume] in Central venous bloodOrdered By: Gosia Delaney on 12-04-2024 CO2 [Moles/Vol] 23.9 mmol/L 21.0-32.0 [facility] Chloride assayOrdered By: Joni Delaney on 12-04-2024 Chloride [Moles/Vol] 90 mmol/L Low 98-108 [facility] Comprehensive Metabolic Prof ilon 12-04-2024 Albumin [Mass/Vol] 4.5 g/dL Normal 3.4-4.8 [facility] Comment on above: Order Comment: Order Date: 12/04/24Order Info: 86-1 - CMPOrder Info: [id number] - CRPOrder Info: 301-3 - TSH Performed By: #### L 501.080 #### [facility] [address] [place], [address] Albumin/Globulin [Mass ratio] 1.5 {ratio} Normal 0.9-2.4 [facility] Comment on above: Order Comment: Order Date: 12/04/24Order Info: 86-1 - CMPOrder Info: [id number] - CRPOrder Info: 3016-3 - TSH Performed By: #### L 501.080 #### [facility] [address] [place], [address] ALK PHOS 77 U/L Normal 40-129 [facility] Comment on above: Order Comment: Order Date: 12/04/24Order Info: 785-1 - CMPOrder Info: [id number] - CRPOrder Info: 3016-3 - TSH Performed By: #### L 501.080 #### [facility] [address] [place], [address] ALT [Catalytic activity/Vol] 24 U/L Normal <=46 [facility] Comment on above: Order Comment: Order Date: 12/04/24Order Info: 86-1 - CMPOrder Info: [id number] - CRPOrder Info: 3016-3 - TSH Performed By: #### L 501.080 #### [facility] [address] [place], [address] AST [Catalytic activity/Vol] 24 U/L Normal <=37 [facility] Comment on above: Order Comment: Order Date: 12/04/24Order Info: 0786-1 - CMPOrder Info: [id number] - CRPOrder Info: 3016-3 - TSH Performed By: #### L 501.080 #### [facility] [address] [place], [address] Bilirubin [Mass/Vol] 0.41 mg/dL Normal 0.00-1.30 [facility] Comment on above: Order Comment: Order Date: 12/04/24Order Info: 86-1 - CMPOrder Info: [id number] - CRPOrder Info: 3015-3 - TSH Performed By: #### L 501.080 #### [facility] [address] [place], [address] BUN/CRE 10.1 RATIO Normal 10-20 [facility] Comment on above: Order Comment: Order Date: 12/04/24Order Info: 86-1 - CMPOrder Info: [id number] - CRPOrder Info: 3015-3 - TSH Performed By: #### L 501.080 #### [facility] [address] [place], [address] Calcium [Mass/Vol] 9.8 mg/dL Normal 7.6-11.0 [facility] Comment on above: Order Comment: Order Date: 12/04/24Order Info: 86-1 - CMPOrder Info: [id number] - CRPOrder Info: 3015-3 - TSH Performed By: #### L 501.080 #### [facility] [address] [place], [address] Chloride [Moles/Vol] 90 mmol/L Low 98-108 [facility] Comment on above: Order Comment: Order Date: 12/04/24Order Info: 86-1 - CMPOrder Info: [id number] - CRPOrder Info: 3016-3 - TSH Performed By: #### L 501.080 #### [facility] [address] [place], [address] CO2 [Moles/Vol] 23.9 mmol/L Normal 21.0-32.0 [facility] Comment on above: Order Comment: Order Date: 12/04/24Order Info: 785-1 - CMPOrder Info: [id number] - CRPOrder Info: 3015-3 - TSH Performed By: #### L 501.080 #### [facility] [address] [place], [address] Creatinine [Mass/Vol] 1.04 mg/dL Normal 0.70-1.20 [facility] Comment on above: Order Comment: Order Date: 12/04/24Order Info: 785-1 - CMPOrder Info: [id number] - CRPOrder Info: 3015-3 - TSH Performed By: #### L 501.080 #### [facility] [address] [place], [address] GAP 13 Normal 5-15 [facility] Comment on above: Order Comment: Order Date: 12/04/24Order Info: 785-1 - CMPOrder Info: [id number] - CRPOrder Info: 3015-3 - TSH Performed By: #### L 501.080 #### [facility] [address] [place], [address] GFR/1.73 sq M.predicted among non-blacks MDRD (S/P/Bld) [Vol rate/Area] 77 mL/min/{1.73_m2} Normal >60 [facility] Comment on above: Order Comment: Order Date: 12/04/24Order Info: 785-1 - CMPOrder Info: [id number] - CRPOrder Info: 6-3 - TSH Result Comment: mL/m in/1.73m2 CKD-EPI Creatinine Equation (2020) Performed By: #### L 501.080 #### [facility] [address] [place], [address] Globulin (S) [Mass/Vol] 3.0 g/dL Normal 2.2-4.2 [facility] Comment on above: Order Comment: Order Date: 12/04/24Order Info: 0786-1 - CMPOrder Info: [id number] - CRPOrder Info: 3016-3 - TSH Performed By: #### L 501.080 #### [facility] [address] [place], [address] Glucose [Mass/Vol] 113 mg/dL High 70-99 [facility] Comment on above: Order Comment: Order Date: 12/04/24Order Info: 0786-1 - CMPOrder Info: [id number] - CRPOrder Info: 3016-3 - TSH Performed By: #### L 501.080 #### [facility] [address] [place], [address] Potassium [Moles/Vol] 4.2 mmol/L Normal 3.3-5.1 [facility] Comment on above: Order Comment: Order Date: 12/04/24Order Info: 0786-1 - CMPOrder Info: [id number] - CRPOrder Info: 3016-3 - TSH Performed By: #### L 501.080 #### [facility] [address] [place], [address] Sodium [Moles/Vol] 127 mmol/L Low 133-145 [facility] Comment on above: Order Comment: Order Date: 12/04/24Order Info: 86-1 - CMPOrder Info: [id number] - CRPOrder Info: 3016-3 - TSH Performed By: #### L 501.080 #### [facility] [address] [place], [address] T PROT 7.5 g/dL Normal 5.9-8.4 [facility] Comment on above: Order Comment: Order Date: 12/04/24Order Info: 0786-1 - CMPOrder Info: [id number] - CRPOrder Info: 3016-3 - TSH Performed By: #### L 501.080 #### [facility] [address] [place], [address] Urea nitrogen [Mass/Vol] 11 mg/dL Normal 4-19 [facility] Comment on above: Order Comment: Order Date: 12/04/24Order Info: 0786-1 - CMPOrder Info: [id number] - CRPOrder Info: 3016-3 - TSH Performed By: #### L 501.080 #### [facility] [address] [place], [place], [address] Eosinophil percentageOrdered By: Gosia Delaney on 12-04-2024 Eosinophils/100 WBC (Bld) 3.1 % 0-5 [facility] Erythrocyte distribution wid th ratioOrdered By: Gosia Delaney on 12-04-2024 Erythrocyte distribution width (RBC) [Ratio] 12.2 % 11.6-14.6 [facility] Erythrocyte distribution wid th standard deviationOrdered By: Gosia Delaney on 12-04-2024 Erythrocyte distribution width (RBC) [Ratio] 39.5 fl 35.1-43.9 [facility] Glomerular filtration rate ( GFR) estimation/1.73 sq m using serum, plasma, or whole bOrdered By: Gosia Delaney on 12-04-2024 GFR/1.73 sq M.predicted among non-blacks MDRD (S/P/Bld) [Vol rate/Area] 77 mL/min/{1.73_m2} >60 [facility] Comment on above: mL/min/1.73m2 CKD-EP I Creatinine Equation (2020) Hematocrit Auto (Bld) [Volum e fraction]Ordered By: Gosia Delaney on 12-04-2024 Hematocrit (Bld) [Volume fraction] 38.4 % Low 40-54 [facility] Hemoglobin measurementOrdere d By: Gosia Delaney on 12-04-2024 Hemoglobin (Bld) [Mass/Vol] 13.6 g/dL 13.0-16.5 [facility] Immature granulocytes/100 WB C Auto (Bld)Ordered By: Gosia Delaney on 12-04-2024 Immature granulocytes/100 WBC (Bld) 0.500 % 0.0-0.9 [facility] Comment on above: IG% - Immature Granu locytes (promyelocytes, myelocytes and metamyelocytes) > 1% indicates that a LEFT SHIFT is Present. Laboratory - Chemistry and C hemistry - challengeOrdered By: Gosia Delaney on 12-04-2024 AST [Catalytic activity/Vol] 24 U/L <38 [facility] MCV (mean corpuscular volume ) determinationOrdered By: Gosia Delaney on 12-04-2024 MCV (RBC) [Entitic vol] 87.7 fL 80-94 [facility] Mean corpuscular hemoglobin (MCH) determinationOrdered By: Gosia Delaney on 12-04-2024 MCH (RBC) [Entitic mass] 31.1 pg 27.0-32.0 [facility] Mean corpuscular hemoglobin concentration (MCHC) determinationOrdered By: Gosia Delaney on 12-04-2024 MCHC (RBC) [Mass/Vol] 35.4 g/dL 32-36 [facility] Mean platelet volume determi nationOrdered By: Gosia Delaney on 12-04-2024 Platelet mean volume (Bld) [Entitic vol] 10.3 fL 6.2-12.0 [facility] Monocyte percentageOrdered B y: Gosia Delaney on 12-04-2024 Monocytes/100 WBC (Bld) 8.3 % 0-10 [facility] Neutrophil percentageOrdered By: Gosia Delaney on 12-04-2024 Neutrophils/100 WBC (Bld) 58.5 % 47-70 [facility] Nucleated red blood cell per centageOrdered By: Gosia Delaney on 12-04-2024 Nucleated RBC/100 WBC (Bld) [Ratio] 0 % 0-5 [facility] Osmolality, Serumon 12-05-19 25 OSMOLALITY,SER 268 mOsm/KG Low 280-301 [facility] Comment on above: Order Comment: Order Date: 12/04/24Order Info: 2692-2 - OS Performed By: #### L 501.080 #### [facility] [address] [place], [place], [address] Platelet countOrdered By: Joni Delaney on 12-04-2024 Platelets (Bld) [#/Vol] 406 10*3/uL 150-450 [facility] Potassium measurement (mass/ volume)Ordered By: Gosia Delaney on 12-04-2024 Potassium (Unsp spec) [Mass/Vol] 4.2 mmol/L 3.3-5.1 [facility] RBC Auto (Bld) [#/Vol]Ordere d By: Gosia Delaney on 12-04-2024 RBC (Bld) [#/Vol] 4.38 10*6/uL Low 4.6-6.2 [facility] Serum creatinine measurement (mass/volume)Ordered By: Gosia Delaney on 12-04-2024 Creatinine [Mass/Vol] 1.04 mg/dL 0.70-1.20 [facility] Serum globulin measurementOr dered By: Gosia Delaney on 12-04-2024 Globulin (S) [Mass/Vol] 3.0 g/dL 2.2-4.2 [facility] Serum glucose measurement (m ass/volume)Ordered By: Gosia Delaney on 12-04-2024 Glucose [Mass/Vol] 113 mg/dL High 70-99 [facility] Serum or plasma C reactive p rotein measurement (mass/volume)Ordered By: Gosia Delaney on 12-04-2024 CRP [Mass/Vol] mg/L 0.0-3.0 [facility] Serum or plasma alanine gibson otransferase (ALT) measurementOrdered By: Gosia Delaney on 12-04-2024 ALT [Catalytic activity/Vol] 24 U/L <47 [facility] Serum or plasma albumin zac urement (mass/volume)Ordered By: Gosia Delaney on 12-04-2024 Albumin [Mass/Vol] 4.5 g/dL 3.4-4.8 [facility] Serum or plasma albumin/glob ulin mass ratioOrdered By: Gosia Delaney on 12-04-2024 Albumin/Globulin [Mass ratio] 1.5 {ratio} 0.9-2.4 [facility] Serum or plasma alkaline rafa sphatase measurementOrdered By: Gosia Delaney on 12-04-2024 ALP [Catalytic activity/Vol] 77 U/L 40-129 [facility] Serum or plasma calcium zac urement (mass/volume)Ordered By: Gosia Delaney on 12-04-2024 Calcium [Mass/Vol] 9.8 mg/dL 7.6-11.0 [facility] Serum or plasma urea nitroge n measurement (mass/volume)Ordered By: Gosia Delaney on 12-04-2024 Urea nitrogen [Mass/Vol] 11 mg/dL 4-19 [facility] Sodium levelOrdered By: Gosia Delaney on 12-04-2024 Sodium [Moles/Vol] 127 mmol/L Low 133-145 [facility] TSH DL <= 0.005 mIU/L QnOrde red By: Gosia Delaney on 12-04-2024 TSH Qn 2.800 uIU/mL 0.300-4.200 [facility] Thyroid Stim Hormone (TSH)on 12-04-2024 TSH 2.800 uIU/mL Normal 0.300-4.200 [facility] Comment on above: Order Comment: Order Date: 12/04/24Order Info: 0786-1 - CMPOrder Info: [id number] - CRPOrder Info: 3016-3 - TSH Performed By: #### L 501.080 #### [facility] [address] [place], [place], [address] Total proteinOrdered By: Julia Delaney on 12-04-2024 Protein [Mass/Vol] 7.5 g/dL 5.9-8.4 [facility] White blood cell (WBC) count Ordered By: Gosia Delaney on 12-04-2024 WBC (Bld) [#/Vol] 7.8 10*3/uL 4.4-11.0 [facility] CBC panel Auto (Bld)on 11-23 Erythrocyte distribution width (RBC) [Ratio] 13.3 % Normal 11.5-15.0 [facility] Comment on above: Order Comment: Tiffanie conrad Type: BLOOD SPECIMEN Ordering Facility: [facility] Address: [address] [place] [address] Performed By: #### 2 4323-8, 3040-3 #### [facility] CLIA [id number] [address] [place] [address] [place] Hematocrit (Bld) [Volume fraction] 34.2 % Low 39.0-51.0 [facility] Comment on above: Order Comment: Tiffanie conrad Type: BLOOD SPECIMEN Ordering Facility: [facility] Address: [address] [place] [address] Performed By: #### 2 4323-8, 0-3 #### [facility] CLIA [id number] [address] [place] [address] [place] Hemoglobin (Bld) [Mass/Vol] 11.7 g/dL Low 13.0-17.0 [facility] Comment on above: Order Comment: Speci men Type: BLOOD SPECIMEN Ordering Facility: [facility] Address: [address] [place] [address] Performed By: #### 2 4323-8, 3039-3 #### [facility] CLIA [id number] [address] [place] [address] [place] MCH (RBC) [Entitic mass] 31.4 pg Normal 26.0-34.0 [facility] Comment on above: Order Comment: Speci men Type: BLOOD SPECIMEN Ordering Facility: [facility] Address: [address] [place] [address] Performed By: #### 2 4323-8, 3039-3 #### [facility] CLIA [id number] [address] [place] [address] [place] MCHC (RBC) [Mass/Vol] 34.2 g/dL Normal 30.5-36.0 [facility] Comment on above: Order Comment: Speci men Type: BLOOD SPECIMEN Ordering Facility: [facility] Address: [address] [place] [address] Performed By: #### 2 4323-8, 3039-3 #### [facility] CLIA [id number] [address] [place] [address] [place] MCV (RBC) [Entitic vol] 91.7 fL Normal 80.0-100.0 [facility] Comment on above: Order Comment: Speci men Type: BLOOD SPECIMEN Ordering Facility: [facility] Address: [address] [place] [address] Performed By: #### 2 4323-8, 0-3 #### [facility] CLIA [id number] [address] [place] [address] [place] Nucleated RBC (Bld) [#/Vol] 10*3/uL Normal <0.01 [facility] Comment on above: Order Comment: Speci men Type: BLOOD SPECIMEN Ordering Facility: [facility] Address: [address] [place] [address] Performed By: #### 2 4323-8, 3040-3 #### [facility] CLIA [id number] [address] [place] [address] [place] Platelet mean volume (Bld) [Entitic vol] 10.1 fL Normal 9.0-12.7 [facility] Comment on above: Order Comment: Speci men Type: BLOOD SPECIMEN Ordering Facility: [facility] Address: [address] [place] [address] Performed By: #### 2 4323-8, 3040-3 #### [facility] CLIA [id number] [address] [place] [address] [place] Platelets (Bld) [#/Vol] 170 10*3/uL Normal 150-400 [facility] Comment on above: Order Comment: Speci men Type: BLOOD SPECIMEN Ordering Facility: [facility] Address: [address] [place] [address] Performed By: #### 2 4323-8, 3040-3 #### [facility] CLIA [id number] [address] [place] [address] [place] RBC (Bld) [#/Vol] 3.73 10*6/uL Low 4.20-6.00 [facility] Comment on above: Order Comment: Speci men Type: BLOOD SPECIMEN Ordering Facility: [facility] Address: [address] [place] [address] Performed By: #### 2 4323-8, 3040-3 #### [facility] CLIA [id number] [address] [place] [address] [place] WBC (Bld) [#/Vol] 7.66 10*3/uL Normal 3.70-11.00 [facility] Comment on above: Order Comment: Speci men Type: BLOOD SPECIMEN Ordering Facility: [facility] Address: [facility] [place] [address] Performed By: #### 2 4323-8, 3040-3 #### [facility] CLIA [id number] [address] CNDSon 11-23-2024 [facility] HNO ID: [id number] Author: KERWIN AGUILAR DO Service: Hospital Medicine [...] cholecystostomy tube Patient initially taken to the [facility] ED for abdominal pain CT abdomen showed a hydropic gallbladder containing radiodense stones with marked wall thickening and pericholecystic fluid in addition to inflammatory stranding Follow-up ultrasound showed distended gallbladder with cholelithiasis, wall thickening, and pericholecystic fluid Cholecystostomy tube placed there but pulled out by patient Patient transferred here to [facility] General surgery consulted New cholecystostomy tube placed in IR on 11/21 Patient will follow-up with general surgery in the coming weeks for cholangiogram Encephalopathy vs. EtOH withdrawal vs. Dementia [facility] [...] Your Medications These medications were sent to [facility] [address] Hours: Wednesday-Wednesday 7am-7pm, Wednesday 9am-1pm BD POSIFLUSH NORMAL SALINE 0.9 syringe FUTURE APPOINTMENTS: No future appointments. Follow Up Appointments Follow-up Appointment When: In 2 weeks Gosia Delaney MD [phone] [facility] [address] [facility] [address] PCP Requested Referral Follow-up Appointment When: In 2 weeks Roberto Ramon MD [phone] [place] [address] [address] [facility] [phone] PCP Requested Referral PATIENT CONDITION AT DISCHARGE: Stable DISCHARGE DISPOSITION: Home DISCHARGE TIME: 33 minutes SIGNATURE: Kerwin Aguilar DO DATE: November 23, 2024 TIME: 10:[address] [facility] Comprehensive metabolic 2000 panelon 11-23-2024 Albumin [Mass/Vol] 2.9 g/dL Low 3.2-5.0 [facility] Comment on above: Order Comment: Speci men Type: BLOOD SPECIMEN Ordering Facility: [facility] Address: [address] [place] [address] Performed By: #### 2 4323-8, 3040-3 #### [facility] CLIA [id number] [address] [place] [address] [place] ALP [Catalytic activity/Vol] 62 U/L Normal 45-117 [facility] Comment on above: Order Comment: Speci men Type: BLOOD SPECIMEN Ordering Facility: [facility] Address: [address] [place] [address] Performed By: #### 2 4323-8, 3040-3 #### [facility] CLIA [id number] [address] [place] [address] [place] ALT [Catalytic activity/Vol] 44 U/L Normal 13-61 [facility] Comment on above: Order Comment: Speci men Type: BLOOD SPECIMEN Ordering Facility: [facility] Address: [address] [place] [address] Result Comment: Resu lts may be falsely depressed after the administration of Sulfasalazine and/or Sulfapyridine. Performed By: #### 2 4323-8, 3040-3 #### [facility] CLIA [id number] [address] [place], [place] [address] [place] Anion gap [Moles/Vol] 9 mmol/L Normal 5-16 [facility] Comment on above: Order Comment: Speci men Type: BLOOD SPECIMEN Ordering Facility: [facility] Address: [address] [place] [address] Performed By: #### 2 4323-8, 3040-3 #### [facility] CLIA [id number] [address] [place] [address] [place] AST [Catalytic activity/Vol] 27 U/L Normal 8-34 [facility] Comment on above: Order Comment: Speci men Type: BLOOD SPECIMEN Ordering Facility: [facility] Address: [address] [place] [address] Result Comment: Resu lts may be falsely depressed after the administration of Sulfasalazine and/or Sulfapyridine. Performed By: #### 2 4323-8, 3040-3 #### [facility] CLIA [id number] [address] [place] [address] [place] Bilirubin [Mass/Vol] 0.8 mg/dL Normal 0.2-1.0 [facility] Comment on above: Order Comment: Speci men Type: BLOOD SPECIMEN Ordering Facility: [facility] Address: [address] [place] [address] Performed By: #### 2 4323-8, 3039-3 #### [facility] CLIA [id number] [address] [place] [address] [place] Calcium [Mass/Vol] 8.8 mg/dL Normal 8.5-10.5 [facility] Comment on above: Order Comment: Speci men Type: BLOOD SPECIMEN Ordering Facility: [facility] Address: [address] [place] [address] Performed By: #### 2 4323-8, 3039-3 #### [facility] CLIA [id number] [address] [place] [address] [place] Chloride [Moles/Vol] 108 mmol/L High 98-107 [facility] Comment on above: Order Comment: Speci men Type: BLOOD SPECIMEN Ordering Facility: [facility] Address: [address] [place] [address] Performed By: #### 2 4323-8, 3040-3 #### [facility] CLIA [id number] [address] [place] [address] [place] CO2 [Moles/Vol] 22 mmol/L Normal 21-32 [facility] Comment on above: Order Comment: Speci men Type: BLOOD SPECIMEN Ordering Facility: [facility] Address: [address] [place] [address] Performed By: #### 2 4323-8, 3039-3 #### [facility] CLIA [id number] [address] [place] [address] [place] Creatinine [Mass/Vol] 0.93 mg/dL Normal 0.50-1.40 [facility] Comment on above: Order Comment: Speci anamaria Type: BLOOD SPECIMEN Ordering Facility: [facility] Address: [address] [place] [address] Result Comment: Erica ents receiving either N-Acetylcysteine (NAC) or Metamizole prior to venipuncture, may have falsely depressed results. Performed By: #### 2 4323-8, 3039-3 #### [facility] CLIA [id number] [address] [place] [address] [place] eGFRcr SerPlBld CKD-EPI 2020 88 mL/min/1.73m??? Normal >=60 [facility] Comment on above: Order Comment: Tiffanie conrad Type: BLOOD SPECIMEN Ordering Facility: [facility] Address: [address] [place] [address] Result Comment: Amarilis mated Glomerular Filtration Rate [...] Performed By: #### 2 4323-8, 3039-3 #### [facility] CLIA [id number] [address] [place] [address] [place] Glucose [Mass/Vol] 93 mg/dL Normal 70-100 [facility] Comment on above: Order Comment: Tiffanie conrad Type: BLOOD SPECIMEN Ordering Facility: [facility] Address: [address] [place] [address] Result Comment: The [place] Diabetes Association (ADA) provides guidance for cutoff [...] Standards of Medical Care in Diabetes 2016, [place] [employer]. Diabetes Care. 2016.39(Suppl 1). Results may be falsely elevated after the administration of Sulfapyridine. Results may be falsely depressed after the administration of Sulfasalazine. Performed By: #### 2 4323-8, 3040-3 #### [facility] CLIA [id number] [address] [place] [address] [place] Potassium [Moles/Vol] 3.7 mmol/L Normal 3.5-5.1 [facility] Comment on above: Order Comment: Tiffanie conrad Type: BLOOD SPECIMEN Ordering Facility: [facility] Address: [address] [place] [address] Performed By: #### 2 4323-8, 3039-3 #### [facility] CLIA [id number] [address] [place] [address] [place] Protein [Mass/Vol] 5.9 g/dL Low 6.0-8.5 [facility] Comment on above: Order Comment: Tiffanie conrad Type: BLOOD SPECIMEN Ordering Facility: [facility] Address: [address] [place] [address] Performed By: #### 2 4323-8, 3039-3 #### [facility] CLIA [id number] [address] [place], [place] [address] [place] Sodium [Moles/Vol] 139 mmol/L Normal 136-145 [facility] Comment on above: Order Comment: Tiffanie conrad Type: BLOOD SPECIMEN Ordering Facility: [facility] Address: [address] [place] [address] Performed By: #### 2 4323-8, 0-3 #### [facility] CLIA [id number] [address] [place] [address] [place] Urea nitrogen [Mass/Vol] 9 mg/dL Normal 12-02 [facility] Comment on above: Order Comment: Speci men Type: BLOOD SPECIMEN Ordering Facility: [facility] Address: [address] [place] [address] Performed By: #### 2 4323-8, 3040-3 #### [facility] CLIA [id number] [address] [place] [address] [place] Magnesium SerPl-mCncon 11-23 Magnesium [Mass/Vol] 1.8 mg/dL Normal 1.6-2.6 [facility] Comment on above: Order Comment: Speci men Type: BLOOD SPECIMEN Ordering Facility: [facility] Address: [address] [place] [address] Performed By: #### 2 4323-8, 3040-3 #### [facility] CLIA [id number] [address] [place] [address] [facility] [place] CBC panel Auto (Bld)on 11-22 Erythrocyte distribution width (RBC) [Ratio] 13.5 % Normal 11.5-15.0 [facility] Comment on above: Order Comment: Speci men Type: BLOOD SPECIMEN Ordering Facility: [facility] Address: [address] [place] [address] Performed By: #### 4 5066-8 #### [facility] CLIA [id number] [address] [place] [address] [place] Hematocrit (Bld) [Volume fraction] 32.0 % Low 39.0-51.0 [facility] Comment on above: Order Comment: Speci men Type: BLOOD SPECIMEN Ordering Facility: [facility] Address: [address] [place] [address] Performed By: #### 4 5066-8 #### [facility] CLIA [id number] [address] [place], [place] [address] [place] Hemoglobin (Bld) [Mass/Vol] 11.2 g/dL Low 13.0-17.0 [facility] Comment on above: Order Comment: Speci men Type: BLOOD SPECIMEN Ordering Facility: [facility] Address: [address] [place] [address] Performed By: #### 4 5066-8 #### [facility] CLIA [id number] [address] [place] [address] MCH (RBC) [Entitic mass] 31.8 pg Normal 26.0-34.0 [facility] Comment on above: Order Comment: Speci men Type: BLOOD SPECIMEN Ordering Facility: [facility] Address: [address] [place] [address] Performed By: #### 4 5066-8 #### [facility] CLIA [id number] [address] [place] [address] [place] MCHC (RBC) [Mass/Vol] 35.0 g/dL Normal 30.5-36.0 [facility] Comment on above: Order Comment: Speci men Type: BLOOD SPECIMEN Ordering Facility: [facility] Address: [address] [place] [address] Performed By: #### 4 5066-8 #### [facility] CLIA [id number] [address] [place] [address] [place] MCV (RBC) [Entitic vol] 90.9 fL Normal 80.0-100.0 [facility] Comment on above: Order Comment: Speci men Type: BLOOD SPECIMEN Ordering Facility: [facility] Address: [address] [place] [address] Performed By: #### 4 5066-8 #### [facility] CLIA [id number] [address] [place] [address] [place] Nucleated RBC (Bld) [#/Vol] 10*3/uL Normal <0.01 [facility] Comment on above: Order Comment: Speci men Type: BLOOD SPECIMEN Ordering Facility: [facility] Address: [address] [place] [address] Performed By: #### 4 5066-8 #### [facility] CLIA [id number] [address] [place] [address] [place] Platelet mean volume (Bld) [Entitic vol] 10.5 fL Normal 9.0-12.7 [facility] Comment on above: Order Comment: Speci men Type: BLOOD SPECIMEN Ordering Facility: [facility] Address: [address] [place] [address] Performed By: #### 4 5066-8 #### [facility] CLIA [id number] [address] [place] [address] [place] Platelets (Bld) [#/Vol] 141 10*3/uL Low 150-400 [facility] Comment on above: Order Comment: Speci men Type: BLOOD SPECIMEN Ordering Facility: [facility] Address: [address] [place] [address] Performed By: #### 4 5066-8 #### [facility] CLIA [id number] [address] [place] [address] [place] RBC (Bld) [#/Vol] 3.52 10*6/uL Low 4.20-6.00 [facility] Comment on above: Order Comment: Speci men Type: BLOOD SPECIMEN Ordering Facility: [facility] Address: [address] [place] [address] Performed By: #### 4 5066-8 #### [facility] CLIA [id number] [address] [place], [place] [address] [place] WBC (Bld) [#/Vol] 8.14 10*3/uL Normal 3.70-11.00 [facility] Comment on above: Order Comment: Speci men Type: BLOOD SPECIMEN Ordering Facility: [facility] Address: [address] [place] [address] Performed By: #### 4 5066-8 #### [facility] CLIA [id number] [address] [place], [place] [address] [facility] CONSULT PROGon 11-22-2024 CONSULT PROG HNO ID: [id number] Author: ROBERTO RAMON MD Service: General Surgery [...] kg/m? O2 Therapy: Room Air IANDO: Date 11/21/24699 - 11/22/24 0659 11/22/24 07 - 11/23/24 0659 Shift 6910-2125 8735-9783 0312-1033 24 Hour Total 6705-3939 9452-9013 5212-7137 24 Hour Total INTAKE PO 240 240 PO 240 240 IV 2141 1041 3182 Volume (mL) (NaCl 0.9% iv infusion) 1691 1041 2732 Volume (mL) (NaCl 0.9% iv infusion) 450 450 Shift Total 2141 1281 3422 OUTPUT Urine 835 115 950 Void (ml) 835 115 950 Tubes 470 75 545 Drain/Tube Output (Drain/Tube 11/21/[address] [facility] Pelvic Drain Right Lower Quadrant Abdomen Drain #1) 470 75 545 Blood 2 2 Estimated Blood loss 2 2 Shift Total 2 6510 790 3332 Weight (kg) 53.9 54.6 54.6 54.6 54.6 [...] HTN, hypot (more content not included)... Normal [facility] Comprehensive metabolic 2000 panelon 11-22-2024 Albumin [Mass/Vol] 2.7 g/dL Low 3.2-5.0 [facility] Comment on above: Order Comment: Speci men Type: BLOOD SPECIMEN Ordering Facility: [facility] Address: [address] [place] [address] Performed By: #### 2 4323-8, 3040-3 #### [facility] CLIA [id number] [address] [place] [address] [place] ALP [Catalytic activity/Vol] 60 U/L Normal 45-117 [facility] Comment on above: Order Comment: Speci men Type: BLOOD SPECIMEN Ordering Facility: [facility] Address: [address] [place] [address] Performed By: #### 2 4323-8, 3040-3 #### [facility] CLIA [id number] [address] [place] [address] [place] ALT [Catalytic activity/Vol] 54 U/L Normal 13-61 [facility] Comment on above: Order Comment: Speci men Type: BLOOD SPECIMEN Ordering Facility: [facility] Address: [address] [place] [address] Result Comment: Resu lts may be falsely depressed after the administration of Sulfasalazine and/or Sulfapyridine. Performed By: #### 2 4323-8, 3040-3 #### [facility] CLIA [id number] [address] [place] [address] [place] Anion gap [Moles/Vol] 8 mmol/L Normal 5-16 [facility] Comment on above: Order Comment: Speci men Type: BLOOD SPECIMEN Ordering Facility: [facility] Address: [address] [place] [address] Performed By: #### 2 4323-8, 3040-3 #### [facility] CLIA [id number] [address] [place] [address] [place] AST [Catalytic activity/Vol] 30 U/L Normal 8-34 [facility] Comment on above: Order Comment: Speci men Type: BLOOD SPECIMEN Ordering Facility: [facility] Address: [address] [place] [address] Result Comment: Resu lts may be falsely depressed after the administration of Sulfasalazine and/or Sulfapyridine. Performed By: #### 2 4323-8, 3039-3 #### [facility] CLIA [id number] [address] [place], [place] [address] [place] Bilirubin [Mass/Vol] 1.0 mg/dL Normal 0.2-1.0 [facility] Comment on above: Order Comment: Speci men Type: BLOOD SPECIMEN Ordering Facility: [facility] Address: [address] [place] [address] Performed By: #### 2 4323-8, 3039-3 #### [facility] CLIA [id number] [address] [place], [place] [address] [place] Calcium [Mass/Vol] 8.1 mg/dL Low 8.5-10.5 [facility] Comment on above: Order Comment: Speci men Type: BLOOD SPECIMEN Ordering Facility: [facility] Address: [address] [place] [address] Performed By: #### 2 4323-8, 3039-3 #### [facility] CLIA [id number] [address] [place], [place] [address] [place] Chloride [Moles/Vol] 107 mmol/L Normal 98-107 [facility] Comment on above: Order Comment: Speci men Type: BLOOD SPECIMEN Ordering Facility: [facility] Address: [address] [place] [address] Performed By: #### 2 4323-8, 3039-3 #### [facility] CLIA [id number] [address] [place], [place] [address] [place] CO2 [Moles/Vol] 25 mmol/L Normal 21-32 [facility] Comment on above: Order Comment: Speci men Type: BLOOD SPECIMEN Ordering Facility: [facility] Address: [address] [place] [address] Performed By: #### 2 4323-8, 3039-3 #### [facility] CLIA [id number] [address] [place], [place] [address] [place] Creatinine [Mass/Vol] 0.86 mg/dL Normal 0.50-1.40 [facility] Comment on above: Order Comment: Tiffanie conrad Type: BLOOD SPECIMEN Ordering Facility: [facility] Address: [address] [place] [address] Result Comment: Erica ents receiving either N-Acetylcysteine (NAC) or Metamizole prior to venipuncture, may have falsely depressed results. Performed By: #### 2 4323-8, 3040-3 #### [facility] CLIA [id number] [address] [place] [address] [place] eGFRcr SerPlBld CKD-EPI 2020 93 mL/min/1.73m??? Normal >=60 [facility] Comment on above: Order Comment: Tiffanie conrad Type: BLOOD SPECIMEN Ordering Facility: [facility] Address: [address] [place] [address] Result Comment: Amarilis mated Glomerular Filtration Rate [...] actual GFR. Performed By: #### 2 4323-8, 0-3 #### [facility] CLIA [id number] [address] [place] [address] [place] Glucose [Mass/Vol] 114 mg/dL High 70-100 [facility] Comment on above: Order Comment: Tiffanie conrad Type: BLOOD SPECIMEN Ordering Facility: [facility] Address: [address] [place] [address] Result Comment: The [place] Diabetes Association (ADA) provides guidance for cutoff [...] Standards of Medical Care in Diabetes 2016, [place] [employer]. Diabetes Care. 2016.39(Suppl 1). Results may be falsely elevated after the administration of Sulfapyridine. Results may be falsely depressed after the administration of Sulfasalazine. Performed By: #### 2 4323-8, 3040-3 #### [facility] CLIA [id number] [address] [place] [address] [place] Potassium [Moles/Vol] 3.2 mmol/L Low 3.5-5.1 [facility] Comment on above: Order Comment: Tiffanie conrad Type: BLOOD SPECIMEN Ordering Facility: [facility] Address: [address] [place] [address] Performed By: #### 2 4323-8, 0-3 #### [facility] CLIA [id number] [address] [place] [address] [place] Protein [Mass/Vol] 5.6 g/dL Low 6.0-8.5 [facility] Comment on above: Order Comment: Tiffanie conrad Type: BLOOD SPECIMEN Ordering Facility: [facility] Address: [address] [place] [address] Performed By: #### 2 4323-8, 0-3 #### [facility] CLIA [id number] [address] [place] [address] [place] Sodium [Moles/Vol] 140 mmol/L Normal 136-145 [facility] Comment on above: Order Comment: Kaciei anamaria Type: BLOOD SPECIMEN Ordering Facility: [facility] Address: [address] [place] [address] Performed By: #### 2 4323-8, 3040-3 #### [facility] CLIA [id number] [address] [place] [address] [place] Urea nitrogen [Mass/Vol] 8 mg/dL Normal 7-26 [facility] Comment on above: Order Comment: Kaciei anamaria Type: BLOOD SPECIMEN Ordering Facility: [facility] Address: [address] [place], [place] [address] [place] [address] Performed By: #### 2 4323-8, 3040-3 #### [facility] CLIA [id number] [address] [place] [address] [place] Magnesium SerPl-mCncon 11-22 Magnesium [Mass/Vol] 1.7 mg/dL Normal 1.6-2.6 [facility] Comment on above: Order Comment: Speci men Type: BLOOD SPECIMEN Ordering Facility: [facility] Address: [address] [place] [address] Performed By: #### 2 4323-8, 3040-3 #### [facility] CLIA [id number] [address] [place], [place] [address] [place] ANES POSTPROC EVALon 025 ANES POSTPROC EVAL HNO ID: [id number] Author: GARLAND YANCEY DO Service: Anesthesiology Author Type: Anesthesiologist Type: Anesthesia Postprocedure Evaluation Filed: 11/21/2024 14:33 Note Text: POST ANESTHESIA EVALUATION NOTE : 1955 Procedure Summary Date: 11/21/24 Room / Location: [facility] 01 / [facility] Anesthesia Start: 1237 Anesthesia Stop: 1326 Procedure: CHOLECYSTOSTOMY PERCUTANEOUS CATH PLACEMENT CHOLECYSTOGRAM RADIOLOGY SUPERVISIO/INTERPRETAT ION Diagnosis: Cholecystitis (Cholecystitis [K81.9]) Surgeons: Misael Perea MD Responsible Provider: Garland Yancey DO [...] November 21, 2024 TIME: 2:32 PM CSN: [id number] [facility] ANES PRE-OPon 11-21-2024 ANES PRE-OP HNO ID: [id number] Author: GARLAND YANCEY DO Service: Anesthesiology Author Type: Anesthesiologist Type: Anesthesia Preprocedure Evaluation Filed: 11/21/2024 11:46 Note Text: ANESTHESIOLOGY DAY OF SURGERY NOTE : 1955 Procedure Information Date/Time: 11/21/24 1200 Procedure: CHOLECYSTOSTOMY PERCUTANEOUS CATH PLACEMENT CHOLECYSTOGRAM RADIOLOGY SUPERVISIO/INTERPRETAT ION Location: IR 01 / IR Surgeons: Misael Perea MD Estimated body [...] chronic elevated LFTs, who presents to the [facility] ER with right upper quad abdominal pain [...] patient was admitted to surgical service at [facility] and percutaneous cholecystotomy tube was attempted, however [...] patient requests 5. (more content not included)... [facility] BRIEF OP NOTon 11-21-2024 BRIEF OP NOT HNO ID: [id number] Author: MISAEL PEREA MD Service: Interventional Radiology Author Type: Physician Type: Brief Op Note Filed: 11/21/2024 13:13 Note Text: BRIEF OPERATIVE / PROCEDURE NOTE LOG ID: [id number] SURGERY/PROCEDURE DATE: 11/21/2024 INCISION/PROCEDURE START TIME: 12:57 PM INCISION CLOSE/PROCEDURE END TIME: 1:07 PM SURGEON(S)/PROCEDURALI ST(S) AND PATIENT SAFETY ATTENDANT(S): Surgeons and Role: * Misael Perea MD - Primary No Additional Staff SURGERY/PROCEDURE(S): Cholecystostomy placement. ANESTHESIA: Monitored Anesthesia Care FINDINGS: Distended gallbladder with cholelithiasis. 10 Norwegian cholecystostomy placed. ESTIMATED BLOOD LOSS: 3 mL [...] DATE: November 21, 2024 TIME: 1:[address] [facility] Bacteria Wnd Culton 11-22-19 Bacteria identified Cx Nom (Wound) ORGANISM ID: [...] , Intermediate >=.5 , Resistant >=[address] [facility] Comment on above: Performed By: #### 2 4323-8, 3040-3 #### [facility] CLIA [id number] [address] [place] [address] [place] CBC panel Auto (Bld)on 11-21 Erythrocyte distribution width (RBC) [Ratio] 13.2 % Normal 11.5-15.0 [facility] Comment on above: Order Comment: Speci men Type: BLOOD SPECIMEN Ordering Facility: [facility] Address: [address] [place] [address] Performed By: #### 5 8410-2, WAMMR #### [facility] CLIA [id number] [address] [place] [address] [place] Hematocrit (Bld) [Volume fraction] 34.1 % Low 39.0-51.0 [facility] Comment on above: Order Comment: Speci men Type: BLOOD SPECIMEN Ordering Facility: [facility] Address: [address] [place] [address] Performed By: #### 5 8410-2, WAMMR #### [facility] CLIA [id number] [address] [place] [address] OF [place] Hemoglobin (Bld) [Mass/Vol] 11.9 g/dL Low 13.0-17.0 [facility] Comment on above: Order Comment: Speci men Type: BLOOD SPECIMEN Ordering Facility: [facility] Address: [address] [place] [address] Performed By: #### 5 8410-2, WAMMR #### [facility] CLIA [id number] [address] [place] [address] [place] MCH (RBC) [Entitic mass] 31.8 pg Normal 26.0-34.0 [facility] Comment on above: Order Comment: Speci men Type: BLOOD SPECIMEN Ordering Facility: [facility] Address: [address] [place] [address] Performed By: #### 5 8410-2, WAMMR #### [facility] CLIA [id number] [address] [place] [address] [place] MCHC (RBC) [Mass/Vol] 34.9 g/dL Normal 30.5-36.0 [facility] Comment on above: Order Comment: Speci men Type: BLOOD SPECIMEN Ordering Facility: [facility] Address: [address] [place] [address] Performed By: #### 5 8410-2, WAMMR #### [facility] CLIA [id number] [address] [place] [address] [place] MCV (RBC) [Entitic vol] 91.2 fL Normal 80.0-100.0 [facility] Comment on above: Order Comment: Speci men Type: BLOOD SPECIMEN Ordering Facility: [facility] Address: [address] [place] [address] Performed By: #### 5 8410-2, WAMMR #### [facility] CLIA [id number] [address] [place] [address] [place] Nucleated RBC (Bld) [#/Vol] 10*3/uL Normal <0.01 [facility] Comment on above: Order Comment: Speci men Type: BLOOD SPECIMEN Ordering Facility: [facility] Address: [address] [place] [address] Performed By: #### 5 8410-2, WAMMR #### [facility] CLIA [id number] [address] [place] [address] [place] Platelet mean volume (Bld) [Entitic vol] 10.8 fL Normal 9.0-12.7 [facility] Comment on above: Order Comment: Speci men Type: BLOOD SPECIMEN Ordering Facility: [facility] Address: [address] [place] [address] Performed By: #### 5 8410-2, WAMMR #### [facility] CLIA [id number] [address] [place] [address] [place] Platelets (Bld) [#/Vol] 137 10*3/uL Low 150-400 [facility] Comment on above: Order Comment: Speci men Type: BLOOD SPECIMEN Ordering Facility: [facility] Address: [address] [place] [address] Result Comment: No c lot detected. Performed By: #### 5 8410-2, WAMMR #### [facility] CLIA [id number] [address] [place], [place] [address] [facility] RBC (Bld) [#/Vol] 3.74 10*6/uL Low 4.20-6.00 [facility] Comment on above: Order Comment: Speci men Type: BLOOD SPECIMEN Ordering Facility: [facility] Address: [address] [place] [address] Performed By: #### 5 8410-2, WAMMR #### [facility] CLIA [id number] [address] [place], [place] [address] [facility] WBC (Bld) [#/Vol] 9.07 10*3/uL Normal 3.70-11.00 [facility] Comment on above: Order Comment: Speci men Type: BLOOD SPECIMEN Ordering Facility: [facility] Address: [address] [place] [address] Performed By: #### 5 8410-2, WAMMR #### [facility] CLIA [id number] [address] [place], [place] [address] [facility] CONSULTon 11-21-2024 CONSULT HNO ID: [id number] Author: ROBERTO RAMON MD Service: General Surgery [...] LFTs, benign essential tremor who presented to [place] [facility] on November 19 with right upper [...] Assessment/Plan 69 year old male transferred from [facility] with concerns of cholelithiasis/acute on (more content not included)... Normal [facility] Comprehensive metabolic 2000 panelon 11-21-2024 Albumin [Mass/Vol] 2.9 g/dL Low 3.2-5.0 [facility] Comment on above: Order Comment: Speci men Type: BLOOD SPECIMEN Ordering Facility: [facility] Address: [address] [place] [address] Performed By: #### 2 4323-8, 3040-3 #### [facility] CLIA [id number] [address] [place] [address] [place] ALP [Catalytic activity/Vol] 57 U/L Normal 45-117 [facility] Comment on above: Order Comment: Speci men Type: BLOOD SPECIMEN Ordering Facility: [facility] Address: [address] [place] [address] Performed By: #### 2 4323-8, 0-3 #### [facility] CLIA [id number] [address] [place] [address] [place] ALT [Catalytic activity/Vol] 84 U/L High 13-61 [facility] Comment on above: Order Comment: Speci men Type: BLOOD SPECIMEN Ordering Facility: [facility] Address: [address] [place] [address] Result Comment: Resu lts may be falsely depressed after the administration of Sulfasalazine and/or Sulfapyridine. Performed By: #### 2 4323-8, 3040-3 #### [facility] CLIA [id number] [address] [place] [address] [place] Anion gap [Moles/Vol] 7 mmol/L Normal 5-16 [facility] Comment on above: Order Comment: Speci men Type: BLOOD SPECIMEN Ordering Facility: [facility] Address: [address] [place] [address] Performed By: #### 2 4323-8, 3040-3 #### [facility] CLIA [id number] [address] [place] [address] [place] AST [Catalytic activity/Vol] Normal [facility] Comment on above: Order Comment: Speci men Type: BLOOD SPECIMEN Ordering Facility: [facility] Address: [address] [place] [address] Result Comment: Unab le to assay due to interference from hemolysis. Suggest reorder as clinically indicated. Spoke with Angelina Results may be falsely depressed after the administration of Sulfasalazine and/or Sulfapyridine. Performed By: #### 2 4323-8, 3039-3 #### [facility] CLIA [id number] [address] [place], [place] [address] [place] Bilirubin [Mass/Vol] 0.9 mg/dL Normal 0.2-1.0 [facility] Comment on above: Order Comment: Speci men Type: BLOOD SPECIMEN Ordering Facility: [facility] Address: [address] [place] [address] Performed By: #### 2 4323-8, 3039-3 #### [facility] CLIA [id number] [address] [place] [address] [place] Calcium [Mass/Vol] 8.4 mg/dL Low 8.5-10.5 [facility] Comment on above: Order Comment: Speci men Type: BLOOD SPECIMEN Ordering Facility: [facility] Address: [address] [place] [address] Performed By: #### 2 4323-8, 3039-3 #### [facility] CLIA [id number] [address] [place] [address] [place] Chloride [Moles/Vol] 104 mmol/L Normal 98-107 [facility] Comment on above: Order Comment: Speci men Type: BLOOD SPECIMEN Ordering Facility: [facility] Address: [address] [place] [address] Performed By: #### 2 4323-8, 3039-3 #### [facility] CLIA [id number] [address] [place], [place] [address] [place] CO2 [Moles/Vol] 23 mmol/L Normal 21-32 [facility] Comment on above: Order Comment: Speci men Type: BLOOD SPECIMEN Ordering Facility: [facility] Address: [address] [place] [address] Performed By: #### 2 4323-8, 3039-3 #### [facility] CLIA [id number] [address] [place], [place] [address] [place] Creatinine [Mass/Vol] 0.84 mg/dL Normal 0.50-1.40 [facility] Comment on above: Order Comment: Tiffanie conrad Type: BLOOD SPECIMEN Ordering Facility: [facility] Address: [address] [place] [address] Result Comment: Erica ents receiving either N-Acetylcysteine (NAC) or Metamizole prior to venipuncture, may have falsely depressed results. Performed By: #### 2 4323-8, 3040-3 #### [facility] CLIA [id number] [address] [place] [address] [place] Creatinine and Glomerular filtration rate.predicted panel (S/P/Bld) 93 mL/min/1.73m??? Normal >=60 [facility] Comment on above: Order Comment: Tiffanie conrad Type: BLOOD SPECIMEN Ordering Facility: [facility] Address: [address] [place] [address] Result Comment: Amarilis mated Glomerular Filtration Rate [...] actual GFR. Performed By: #### 2 4323-8, 0-3 #### [facility] CLIA [id number] [address] [place] [address] [place] Glucose [Mass/Vol] 107 mg/dL High 70-100 [facility] Comment on above: Order Comment: Tiffanie conrad Type: BLOOD SPECIMEN Ordering Facility: [facility] Address: [address] [place] [address] Result Comment: The [place] Diabetes [employer] (ADA) provides guidance for cutoff [...] Standards of Medical Care in Diabetes 2016, [place]. Diabetes Care. 2016.39(Suppl 1). Results may be falsely elevated after the administration of Sulfapyridine. Results may be falsely depressed after the administration of Sulfasalazine. Performed By: #### 2 4323-8, 3040-3 #### [facility] CLIA [id number] [address] [place] [address] [place] Potassium [Moles/Vol] Normal [facility] Comment on above: Order Comment: Speci anamaria Type: BLOOD SPECIMEN Ordering Facility: [facility] Address: [address] [place] [address] Result Comment: Unab le to assay due to interference from hemolysis. Suggest reorder as clinically indicated. Spoke with Angelina Performed By: #### 2 4323-8, 0-3 #### [facility] CLIA [id number] [address] [place] [address] [place] Protein [Mass/Vol] 5.5 g/dL Low 6.0-8.5 [facility] Comment on above: Order Comment: Kaciei anamaria Type: BLOOD SPECIMEN Ordering Facility: [facility] Address: [address] [place] [address] Performed By: #### 2 4323-8, 3040-3 #### [facility] CLIA [id number] [address] [place] [address] [place] Sodium [Moles/Vol] 134 mmol/L Low 136-145 [facility] Comment on above: Order Comment: Kaciei anamaria Type: BLOOD SPECIMEN Ordering Facility: [facility] Address: [address] [place] [address] Performed By: #### 2 4323-8, 3040-3 #### [facility] CLIA [id number] [address] [place], [place] [address] [place] Urea nitrogen [Mass/Vol] 8 mg/dL Normal 7-26 [facility] Comment on above: Order Comment: Speci men Type: BLOOD SPECIMEN Ordering Facility: [facility] Address: [facility] [place] [address] Performed By: #### 2 4323-8, 3040-3 #### [facility] CLIA [id number] [facility] [place] [address] [place] GI CHOLANGIOGRAM T-TUBEon GI CHOLANGIOGRAM T-TUBE * * *Final Repor t* * * DATE OF EXAM: Nov 21 2024 1:00PM [facility] 7305 - GI CHOLANGIOGRAM T-TUBE / PROCEDURE [...] Distended gallbladder with cholelithiasis. Cholecystostomy tube placed: [employer] 10 F all purpose drainage catheter [...] performed by the: attending radiologist, without an clinical assistant professor. The attending radiologist performed the following procedural [...] and agree with the report as written. Motorcycle Deliverer: THONY Transcribe Date/Time: Nov 21 2024 1:47P Dictated by : MISAEL PEREA MD This examination was interpreted an (more content not included)... [facility] IR FLOURO GUID NEEDLE PLCon 11-21-2024 IR FLOURO GUID NEEDLE PLC * * *Final Rep ort* * * DATE OF EXAM: Nov 21 2024 1:00PM [facility] 6309 - IR FLOURO GUID NEEDLE PLC [...] Distended gallbladder with cholelithiasis. Cholecystostomy tube placed: [employer] 10 F all purpose drainage catheter [...] performed by the: attending radiologist, without an clinical assistant professor. The attending radiologist performed the following procedural [...] and agree with the report as written. Motorcycle Deliverer: THONY Transcribe Date/Time: Nov 21 2024 1:47P Dictated by : MISAEL PEREA MD This examination was interpreted (more content not included)... [facility] IR PERC FRANTZ NEW ACCESSon 0 11-21-2024 IR PERC FRANTZ NEW ACCESS * * *Final Repo rt* * * DATE OF EXAM: Nov 21 2024 1:00PM [facility] 0751 - IR PERC FRANTZ NEW ACCESS [...] Distended gallbladder with cholelithiasis. Cholecystostomy tube placed: [employer] 10 F all purpose drainage catheter [...] performed by the: attending radiologist, without an clinical assistant professor. The attending radiologist performed the following procedural [...] and agree with the report as written. 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 Normal [facility] IR US GUIDE NEEDLE PLACE/BIO PSYon 11-21-[address]/BIOPSY * * *Final Report* * * DATE OF EXAM: Nov 21 2024 1:00PM [facility] 0924 - IR US GUIDE NEEDLE PLACE/BIOPSY [...] Distended gallbladder with cholelithiasis. Cholecystostomy tube placed: [employer] 10 F all purpose drainage catheter [...] performed by the: attending radiologist, without an clinical assistant professor. The attending radiologist performed the following procedural [...] and agree with the report as written. Motorcycle Deliverer: PSCB Transcribe Date/Time: Nov 21 2024 1:47P Dictated by : MISAEL PEREA MD This examination was interp (more content not included)... Normal [facility] Lipase SerPl-cCncon 11-22-19 25 Lipase [Catalytic activity/Vol] 52 U/L Normal 12-60 [facility] Comment on above: Order Comment: Speci anamaria Type: BLOOD SPECIMEN Ordering Facility: [facility] Address: [address] [place] [address] Performed By: #### 2 4323-8, 3040-3 #### [facility] CLIA [id number] [address] [place] [address] [place] MORPH WAM REFLEXon 5 Platelets Estimate (Bld) [#/Vol] Decreased Normal [facility] Comment on above: Order Comment: Speci men Type: BLOOD SPECIMEN Ordering Facility: [facility] Address: [address] [place] [address] Performed By: #### 5 8410-2, WAMMR #### [facility] CLIA [id number] [address] [place] [address] [place] Polychromasia LM Ql (Bld) Slight Normal [facility] Comment on above: Order Comment: Speci anamaria Type: BLOOD SPECIMEN Ordering Facility: [facility] Address: [address] [place] [address] Performed By: #### 5 8410-2, WAMMR #### [facility] CLIA [id number] [address] [place] [address] [place] RED CELL MORPH Reviewed: unremarkable [facility] Comment on above: Order Comment: Speci men Type: BLOOD SPECIMEN Ordering Facility: [facility] Address: [address] [place] [address] Performed By: #### 5 8410-2, KAMILA #### [facility] CLIA [id number] [address] [place] [address] [place] NURSING PROGon 11-21-2024 NURSING PROG HNO ID: [id number] Author: ZOHAIB RAMIREZ RN Service: Nursing Author Type: Registered Nurse Type: Nursing Progress Note Filed: 11/21/2024 13:09 Note Text: Procedure complete. Specimen taken to lab by RN. 10Fr x25cm Skater drain plain. Stayfix and tegaderm dressing placed over site. Pt tolerated well. Bedside report given along w/site observation. Normal [facility] POTASSIUMon 11-21-2024 Potassium [Moles/Vol] 3.8 mmol/L Normal 3.5-5.1 [facility] Comment on above: Order Comment: Tiffanie conrad Type: BLOOD SPECIMEN Ordering Facility: [facility] Address: [address] [place] [address] Performed By: #### K 1 #### [facility] CLIA [id number] [address] [place] [address] PT panel Coag (PPP)on 2024 INR Coag (PPP) [Relative time] 1.3 {INR} Normal 0.9-1.3 [facility] Comment on above: Order Comment: Tiffanie conrad Type: BLOOD SPECIMEN Ordering Facility: [facility] Address: [address] [place] [address] Result Comment: Damaris min K Antagonist (VKA) Therapeutic Range: INR 2 to 3 (Target INR of 2.5) Note: For patients treated with VKA drugs, such as warfarin, the [employer] 2012 Guideline recommends [...] to 3.5 (target INR of 3). Celso ZELAYA, et al. Chest 2012, 141:7S-47S Sina ANGEL, et al. [facility] 2017, 70: 252-289 Performed By: #### 3 4528-0 #### [facility] CLIA [id number] [address] [place] [address] [place] PT Coag (PPP) [Time] 13.4 s High 9.7-13.0 [facility] Comment on above: Order Comment: Speci men Type: BLOOD SPECIMEN Ordering Facility: [facility] Address: [address] [place] [address] Performed By: #### 3 4528-0 #### [facility] CLIA [id number] [address] [place], [place] [address] [place] Abscess/Fistula/Sinus Tracto n 11-20-2024 Abscess/Fistula/Sinus Tract [facility] Imaging Services [address] [place] [address] Abscess/Fistula/Sinus Tract MR#: [id number] Acct: [id number] Name: FAHAD KIRK Rep #: [id number] : 1955 M 69 From: Fadi blackburn MD PCP: Dr. Gosia Delaney MD Status: ADM IN Study: Abscess/Fistula/Sinus Tract Date of Exam: 11/07 09/01 Exam# [id number] Ordering Dr: Yakov Samano PROCEDURE: Percutaneous cholecystostomy. [...] patient became agitated and aggressive. An 8 Norwegian catheter was placed into the gallbladder lumen. [...] brown colored fluid was aspirated. Reading Location: [place] [address] CC: Dr. Yakov Samano MD; Dr. Gosia Delaney MD Motorcycle Deliverer: Signed Normal [facility] Absolute lymphocyte countOrd ered By: Yakov Samano on 11-20-2024 Lymphocytes Auto (Unsp spec) [#/Vol] 0.70 10*3/uL Low 0.83-4.51 [facility] Absolute neutrophil countOrd ered By: Yakov Samano on 11-20-2024 Neutrophils (Bld) [#/Vol] 14.8 10*3/uL High 2.0-7.7 [facility] Anion gap in Serum or Plasma Ordered By: Yakov Samano on 11-20-2024 Anion gap [Moles/Vol] 13 mmol/L 5-15 [facility] Automated lymphocyte count a s percentage of total leukocytesOrdered By: Yakov Samano on 11-20-2024 Lymphocytes/100 WBC Auto (Unsp spec) 4.2 % Low 19-41 [facility] BUN/creatinine ratioOrdered By: Yakov Samano on 11-20-2024 Urea nitrogen/Creatinine [Mass ratio] 16.8 mg/mg 10-20 [facility] Basophil percentageOrdered B y: Kevin Genao on 11-20-2024 Basophils/100 WBC (Bld) 0.2 % Normal 0-1 [facility] Comment on above: Performed By: #### L 501.4021, L100.0100, L500.2500 #### [facility] [address] [place], [address] Bedside Glucoseon 11-20-2024 FINGERSTICK GLU 114 mg/dL High 74-106 [facility] Comment on above: Result Comment: BRIANNA GEMENT OF PATIENT CARE PER NURSING PROTOCOL Performed By: #### L 501.080 #### [facility] [address] [place], [address] FINGERSTICK GLU 115 mg/dL High 74-106 [facility] Comment on above: Result Comment: BRIANNA GEMENT OF PATIENT CARE PER NURSING PROTOCOL Performed By: #### L 501.080 #### [facility] [address] [place], [address] FINGERSTICK GLU 119 mg/dL High 74-106 [facility] Comment on above: Result Comment: BRIANNA GEMENT OF PATIENT CARE PER NURSING PROTOCOL Performed By: #### L 501.080 #### [facility] [address] [place], [address] Bilirubin, totalOrdered By: Yakov Samano on 11-20-2024 Bilirubin [Mass/Vol] 1.24 mg/dL 0.00-1.30 [facility] CBC W/Diff, Automatedon 11-07 Absolute Lymph 0.70 X10 3/uL Low 0.83-4.51 [facility] Comment on above: Performed By: #### L 501.4021, L100.0100, L500.2500 #### [facility] [address] [place], [address] Absolute Neut 14.8 X10 3/uL High 2.0-7.7 [facility] Comment on above: Performed By: #### L 501.4021, L100.0100, L500.2500 #### [facility] [address] [place], [address] Eosinophils/100 WBC (Bld) 0.1 % Normal 0-5 [facility] Comment on above: Performed By: #### L 501.4021, L100.0100, L500.2500 #### [facility] [address] [place], [address] Erythrocyte distribution width (RBC) [Ratio] 13.0 % Normal 11.6-14.6 [facility] Comment on above: Performed By: #### L 501.4021, L100.0100, L500.2500 #### [facility] [address] [place], [address] Hematocrit (Bld) [Volume fraction] 39.7 % Low 40-54 [facility] Comment on above: Performed By: #### L 501.4021, L100.0100, L500.2500 #### [facility] [address] [place], [address] IG% 0.400 Normal 0.0-0.9 [facility] Comment on above: Result Comment: IG% - Immature Granulocytes (promyelocytes, myelocytes and metamyelocytes) > 1% indicates that a LEFT SHIFT is Present. Performed By: #### L 501.4021, L100.0100, L500.2500 #### [facility] [address] [place], [address] Lymphocytes/100 WBC (Bld) 4.2 % Low 19-41 [facility] Comment on above: Performed By: #### L 501.4021, L100.0100, L500.2500 #### [facility] [address] [place], [address] MCH (RBC) [Entitic mass] 31.5 pg Normal 27.0-32.0 [facility] Comment on above: Performed By: #### L 501.4021, L100.0100, L500.2500 #### [facility] [address] [place], [address] MCHC (RBC) [Mass/Vol] 35.3 g/dL Normal 32-36 [facility] Comment on above: Performed By: #### L 501.4021, L100.0100, L500.2500 #### [facility] [address] [place], [address] MCV (RBC) [Entitic vol] 89.4 fL Normal 80-94 [facility] Comment on above: Performed By: #### L 501.4021, L100.0100, L500.2500 #### [facility] [address] [place], [address] Monocytes/100 WBC (Bld) 6.3 % Normal 0-10 [facility] Comment on above: Performed By: #### L 501.4021, L100.0100, L500.2500 #### [facility] [address] [place], [address] Neutrophils/100 WBC (Bld) 88.8 % High 47-70 [facility] Comment on above: Performed By: #### L 501.4021, L100.0100, L500.2500 #### [facility] [address] [place], [address] Nucleated RBC (Bld) [#/Vol] 0 10*3/uL Normal 0-5 [facility] Comment on above: Performed By: #### L 501.4021, L100.0100, L500.2500 #### [facility] [address] [place], [address] Platelet mean volume (Bld) [Entitic vol] 10.2 fL Normal 6.2-12.0 [facility] Comment on above: Performed By: #### L 501.4021, L100.0100, L500.2500 #### [facility] [address] [place], [address] Platelets (Bld) [#/Vol] 173 10*3/uL Normal 150-450 [facility] Comment on above: Performed By: #### L 501.4021, L100.0100, L500.2500 #### [facility] [address] [place], [address] RBC (Bld) [#/Vol] 4.44 10*6/uL Low 4.6-6.2 [facility] Comment on above: Performed By: #### L 501.4021, L100.0100, L500.2500 #### [facility] [address] [place], [address] RDW SD 42.8 fl Normal 35.1-43.9 [facility] Comment on above: Performed By: #### L 501.4021, L100.0100, L500.2500 #### [facility] [address] [place], [address] WBC (Bld) [#/Vol] 16.7 10*3/uL High 4.4-11.0 [facility] Comment on above: Performed By: #### L 501.4021, L100.0100, L500.2500 #### [facility] [address] [place], [address] Carbon dioxide, total [Moles /volume] in Central venous bloodOrdered By: Yakov Samano on 11-20-2024 CO2 [Moles/Vol] 22.9 mmol/L 21.0-32.0 [facility] Chloride assayOrdered By: Kassandra Samano on 11-20-2024 Chloride [Moles/Vol] 95 mmol/L Low 98-108 [facility] Comprehensive Metabolic Prof ilon 11-20-2024 Albumin [Mass/Vol] 4.0 g/dL Normal 3.4-4.8 [facility] Comment on above: Performed By: #### L 501.4021, L100.0100, L500.2500 #### [facility] [address] [place], [address] Albumin/Globulin [Mass ratio] 1.6 {ratio} Normal 0.9-2.4 [facility] Comment on above: Performed By: #### L 501.4021, L100.0100, L500.2500 #### [facility] [address] [place], [address] ALK PHOS 111 U/L Normal 40-129 [facility] Comment on above: Performed By: #### L 501.4021, L100.0100, L500.2500 #### [facility] [address] [place], [address] ALT [Catalytic activity/Vol] 215 U/L High <=46 [facility] Comment on above: Performed By: #### L 501.4021, L100.0100, L500.2500 #### [facility] [address] [place], [address] AST [Catalytic activity/Vol] 275 U/L High <=37 [facility] Comment on above: Result Comment: Hemo lysis present, Results??could be affected. ?? Performed By: #### L 501.4021, L100.0100, L500.2500 #### [facility] [address] [place], [address] Bilirubin [Mass/Vol] 1.24 mg/dL Normal 0.00-1.30 [facility] Comment on above: Performed By: #### L 501.4021, L100.0100, L500.2500 #### [facility] [address] [place], [address] BUN/CRE 16.8 RATIO Normal 10-20 [facility] Comment on above: Performed By: #### L 501.4021, L100.0100, L500.2500 #### [facility] [address] [place], [address] Calcium [Mass/Vol] 8.6 mg/dL Normal 7.6-11.0 [facility] Comment on above: Performed By: #### L 501.4021, L100.0100, L500.2500 #### [facility] [address] [place], [address] Chloride [Moles/Vol] 95 mmol/L Low 98-108 [facility] Comment on above: Performed By: #### L 501.4021, L100.0100, L500.2500 #### [facility] [address] [place], [address] CO2 [Moles/Vol] 22.9 mmol/L Normal 21.0-32.0 [facility] Comment on above: Performed By: #### L 501.4021, L100.0100, L500.2500 #### [facility] [address] [place], [address] Creatinine [Mass/Vol] 0.86 mg/dL Normal 0.70-1.20 [facility] Comment on above: Performed By: #### L 501.4021, L100.0100, L500.2500 #### [facility] [address] [place], [address] ECRCL 60.51 ml/min Normal 50-250 [facility] Comment on above: Performed By: #### L 501.4021, L100.0100, L500.2500 #### [facility] [address] [place], [address] GAP 13 Normal 5-15 [facility] Comment on above: Performed By: #### L 501.4021, L100.0100, L500.2500 #### [facility] [address] [place], [address] GFR/1.73 sq M.predicted among non-blacks MDRD (S/P/Bld) [Vol rate/Area] 92 mL/min/{1.73_m2} Normal >60 [facility] Comment on above: Result Comment: mL/m in/1.73m2 CKD-EPI Creatinine Equation (2020) Performed By: #### L 501.4021, L100.0100, L500.2500 #### [facility] [address] [place], [address] Globulin (S) [Mass/Vol] 2.5 g/dL Normal 2.2-4.2 [facility] Comment on above: Performed By: #### L 501.4021, L100.0100, L500.2500 #### [facility] [address] [place], [address] Glucose [Mass/Vol] 117 mg/dL High 70-99 [facility] Comment on above: Performed By: #### L 501.4021, L100.0100, L500.2500 #### [facility] [address] [place], [address] Potassium [Moles/Vol] 4.4 mmol/L Normal 3.3-5.1 [facility] Comment on above: Result Comment: Hemo lysis present, Results??could be affected. ?? Performed By: #### L 501.4021, L100.0100, L500.2500 #### [facility] [address] [place], [address] T PROT 6.5 g/dL Normal 5.9-8.4 [facility] Comment on above: Performed By: #### L 501.4021, L100.0100, L500.2500 #### [facility] [address] [place], [address] Urea nitrogen [Mass/Vol] 15 mg/dL Normal 4-19 [facility] Comment on above: Performed By: #### L 501.4021, L100.0100, L500.2500 #### [facility] [address] [place], [address] Creatinine + eGFR Pnl SerPlB ldon 11-20-2024 Creatinine and Glomerular filtration rate.predicted panel (S/P/Bld) 93 mL/min/1.73m??? Normal >=60 [facility] Comment on above: Order Comment: Specsalvador conrad Type: BLOOD SPECIMEN Ordering Facility: [facility] Address: [address] [place] [address] Result Comment: Amarilis mated Glomerular Filtration Rate [...] GFR. Performed By: #### 4 5066-8 #### [facility] CLIA [id number] [address] [place] [address] [place] Creatinine and Glomerular fi ltration rate.predicted panel (S/P/Bld)on 11-20-2024 Creatinine [Mass/Vol] 0.84 mg/dL Normal 0.50-1.40 [facility] Comment on above: Order Comment: Tiffanie conrad Type: BLOOD SPECIMEN Ordering Facility: [facility] Address: [address] [place] [address] Result Comment: Erica ents receiving either N-Acetylcysteine (NAC) or Metamizole prior to venipuncture, may have falsely depressed results. Performed By: #### 4 5066-8 #### [facility] CLIA [id number] [address] [place] [address] [place] Electrocardiogram reportOrde red By: Roberto Serrano on 11-20-2024 EKG study [facility] Cardiovascular Services [address] [place] [address] 12 Lead EKG 11/19/242005 MR#: [id number] Acct: [id number] Name: FAHAD KIRK Rep #:[id number] : 1955 69 From: Roberto holguin MD Attending Dr: Dr. Yakov Samano MD Status: ADM IN Ordering Dr: Kevin Genao DO Date: 0 11/19/24 Location: [facility] Sex: M C Admitted: 11/19/24 Test Reason : CP Blood Pressure : */* mmHG Vent. Rate : 56 BPM Atrial Rate : 56 BPM P-R Int : 136 ms QRS Dur : 90 ms QT Int : 492 ms P-R-T Axes : 73 67 75 degrees QTcB Int : 474 ms Sinus bradycardia Otherwise normal ECG Confirmed by Roberto Serrano ([id number]), graphics editor MARISA CASTELLANSO ([id number]) on 11/20/2024 1:08:13 PM Referred By: MERVIN Confirmed By: Roberto Serrano 11/20/24 1308 Date _ Roberto Serrano MD CC: Dr. Yakov Samano MD; Dr. Gosia Delaney MD; Dr. Kevin Genao DO ~ Signed [facility] Other Phone: Eosinophil percentageOrdered By: Yakov Samano on 11-20-2024 Eosinophils/100 WBC (Bld) 0.1 % 0-5 [facility] Erythrocyte distribution wid th ratioOrdered By: Yakov Samano on 11-20-2024 Erythrocyte distribution width (RBC) [Ratio] 13.0 % 11.6-14.6 [facility] Erythrocyte distribution wid th standard deviationOrdered By: Yakov Samano on 11-20-2024 Erythrocyte distribution width (RBC) [Ratio] 42.8 fl 35.1-43.9 [facility] Glomerular filtration rate ( GFR) estimation/1.73 sq m using serum, plasma, or whole bOrdered By: Yakov Samano on 11-20-2024 GFR/1.73 sq M.predicted among non-blacks MDRD (S/P/Bld) [Vol rate/Area] 92 mL/min/{1.73_m2} >60 [facility] Comment on above: mL/min/1.73m2 CKD-EP I Creatinine Equation (2020) Glucose [facility] deOrdered By: Yakov Samano on 11-20-2024 Glucose [Mass/Vol] 114 mg/dL High 74-106 [facility] Comment on above: MANAGEMENT OF PATIEN T CARE PER NURSING PROTOCOL HISTORY PHYSICALon HISTORY PHYSICAL HNO ID: [id number] Author: ADRIANA TERAN MD Service: Hospital Medicine [...] chronic elevated LFTs, who presents to the [place] ER with right upper quad abdominal pain [...] patient was admitted to surgical service at [place] and percutaneous cholecystotomy tube was attempted, however [...] daily 6. COPD - Patient on a Flasher at home - DuoNebs 3 times daily [...] FULL C (more content not included)... Normal [facility] Hematocrit Auto (Bld) [Volum e fraction]Ordered By: Yakov Samano on 11-20-2024 Hematocrit (Bld) [Volume fraction] 39.7 % Low 40-54 [facility] Hemoglobin measurementOrdere d By: Kevin Genao on 11-20-2024 Hemoglobin (Bld) [Mass/Vol] 14.0 g/dL Normal 13.0-16.5 [facility] Comment on above: Performed By: #### L 501.4021, L100.0100, L500.2500 #### [facility] [address] [place], [place], [address] Immature granulocytes/100 WB C Auto (Bld)Ordered By: Yakov Samano on 11-20-2024 Immature granulocytes/100 WBC (Bld) 0.400 % 0.0-0.9 [facility] Comment on above: IG% - Immature Granu locytes (promyelocytes, myelocytes and metamyelocytes) > 1% indicates that a LEFT SHIFT is Present. L499.0043on 11-20-2024 Trop T High Sen 11 ng/L Normal <=22 [facility] Comment on above: Performed By: #### L 501.080 #### [facility] [address] [place], [address] Laboratory - Chemistry and C hemistry - challengeOrdered By: Yakov Samano on 11-20-2024 AST [Catalytic activity/Vol] 275 U/L High <38 [facility] Comment on above: Hemolysis present, R esults could be affected. Lipaseon 11-20-2024 Lipase [Catalytic activity/Vol] 1128 U/L High 13-75 [facility] Comment on above: Result Comment: Dread phillip note: LIPASE revised reference range effective 22. New Lipase methodology. Expected to produce lower values than the previous assay method. NEW Reference Range: 13 - 75 U/L Performed By: #### L 501.4021, L100.0100, L500.2500 #### [facility] [address], [place], [address] Lipase measurementOrdered By : Yakov Samano on 11-20-2024 Lipase [Catalytic activity/Vol] 1128 U/L High 13-75 [facility] Comment on above: Please note:LIPASE r evised reference range effective 22. New Lipase methodology. Expected to produce lower values than the previous assay method. NEW Reference Range: 13 - 75 U/L MCV (mean corpuscular volume ) determinationOrdered By: Yakov Samano on 11-20-2024 MCV (RBC) [Entitic vol] 89.4 fL 80-94 [facility] Mean corpuscular hemoglobin (MCH) determinationOrdered By: Yakov Samano on 11-20-2024 MCH (RBC) [Entitic mass] 31.5 pg 27.0-32.0 [facility] Mean corpuscular hemoglobin concentration (MCHC) determinationOrdered By: Yakov Samano on 11-20-2024 MCHC (RBC) [Mass/Vol] 35.3 g/dL 32-36 [facility] Mean platelet volume determi nationOrdered By: Yakov Samano on 11-20-2024 Platelet mean volume (Bld) [Entitic vol] 10.2 fL 6.2-12.0 [facility] Monocyte percentageOrdered B y: Yakov Samano on 11-20-2024 Monocytes/100 WBC (Bld) 6.3 % 0-10 [facility] Neutrophil percentageOrdered By: Yakov Samano on 11-20-2024 Neutrophils/100 WBC (Bld) 88.8 % High 47-70 [facility] Nucleated red blood cell per centageOrdered By: Kevin Genao on 11-20-2024 Nucleated RBC/100 WBC (Bld) [Ratio] 0 % 0-5 [facility] Partial Thromboplast Timeon 11-20-2024 aPTT Coag (Bld) [Time] 23.0 s Low 24.1-36.2 [facility] Comment on above: Performed By: #### L 300.4310, L300.3900 #### [facility] [address] [place], [address] Platelet countOrdered By: Kassandra Samano on 11-20-2024 Platelets (Bld) [#/Vol] 173 10*3/uL 150-450 [facility] Potassium measurement (mass/ volume)Ordered By: Yakov Samano on 11-20-2024 Potassium (Unsp spec) [Mass/Vol] 4.4 mmol/L 3.3-5.1 [facility] Comment on above: Hemolysis present, R esults could be affected. Prothrombin Time w/INRon INR Coag (PPP) [Relative time] 1.0 {INR} Normal [facility] Comment on above: Performed By: #### L 300.4310, L300.3900 #### [facility] [address] [place], [address] Prothrombin timeOrdered By: Yakov Samano on 11-20-2024 PT Coag (PPP) [Time] 13.2 s Normal 11.7-14.9 [facility] Comment on above: Performed By: #### L 300.4310, L300.3900 #### [facility] [address] [place], [address] RBC Auto (Bld) [#/Vol]Ordere d By: Yakov Samano on 11-20-2024 RBC (Bld) [#/Vol] 4.44 10*6/uL Low 4.6-6.2 [facility] Serum creatinine measurement (mass/volume)Ordered By: Yakov Samano on 11-20-2024 Creatinine [Mass/Vol] 0.86 mg/dL 0.70-1.20 [facility] Serum globulin measurementOr dered By: Yakov Samano on 11-20-2024 Globulin (S) [Mass/Vol] 2.5 g/dL 2.2-4.2 [facility] Serum glucose measurement (m ass/volume)Ordered By: Yakov Samano on 11-20-2024 Glucose [Mass/Vol] 117 mg/dL High 70-99 [facility] Serum or plasma alanine gibson otransferase (ALT) measurementOrdered By: Yakov Samano on 11-20-2024 ALT [Catalytic activity/Vol] 215 U/L High <47 [facility] Serum or plasma albumin zac urement (mass/volume)Ordered By: Yakov Samano on 11-20-2024 Albumin [Mass/Vol] 4.0 g/dL 3.4-4.8 [facility] Serum or plasma albumin/glob ulin mass ratioOrdered By: Yakov Samano on 11-20-2024 Albumin/Globulin [Mass ratio] 1.6 {ratio} 0.9-2.4 [facility] Serum or plasma alkaline rafa sphatase measurementOrdered By: Yakov Samano on 11-20-2024 ALP [Catalytic activity/Vol] 111 U/L 40-129 [facility] Serum or plasma calcium zac urement (mass/volume)Ordered By: Yakov Samano on 11-20-2024 Calcium [Mass/Vol] 8.6 mg/dL 7.6-11.0 [facility] Serum or plasma urea nitroge n measurement (mass/volume)Ordered By: Yakov Samano on 11-20-2024 Urea nitrogen [Mass/Vol] 15 mg/dL 4-19 [facility] Sodium levelOrdered By: Ther jer Chadwick on 11-20-2024 Sodium [Moles/Vol] 130 mmol/L Low 133-145 [facility] Comment on above: Performed By: #### L 501.4021, L100.0100, L500.2500 #### [facility] [address] [place] [address], [id number] Total proteinOrdered By: Wilver Samano on 11-20-2024 Protein [Mass/Vol] 6.5 g/dL 5.9-8.4 [facility] Troponin T.cardiac [Mass/vol ume] in Serum or Plasma by High sensitivity methodOrdered By: Kevin Genao on 11-20-2024 Troponin T.cardiac High sensitivity method [Mass/Vol] 11 ng/L <22 [facility] White blood cell (WBC) count Ordered By: Yakov Samano on 11-20-2024 WBC (Bld) [#/Vol] 16.7 10*3/uL High 4.4-11.0 [facility] 12 Lead EKGon 11-19-2024 12 Lead EKG [facility] Cardiovascular Services [address] [place] [address] 12 Lead EKG 11/19/242005 MR#: [id number] Acct: [id number] Name: FAHAD KIRK Rep #: [id number] : 1955 69 From: Roberto Serrano MD Attending Dr: Dr. Yakov Samano MD Status: ADM IN Ordering Dr: Kevin Genao DO Date: 11/19/24 Location: [facility] Sex: M C Admitted: 11/19/24 Test Reason : CP Blood Pressure : */* mmHG Vent. Rate : 56 BPM Atrial Rate : 56 BPM P-R Int : 136 ms QRS Dur : 90 ms QT Int : 492 ms P-R-T Axes : 73 67 75 degrees QTcB Int : 474 ms Sinus bradycardia Otherwise normal ECG Confirmed by Roberto Serrano ([id number]), graphics editor MARISA CASTELLANOS ([id number]) on 11/20/2024 1:08:13 PM Referred By: TA Confirmed By: Roberto Serrano 11/20/24 1308 Date Roberto Serrano MD CC: Dr. Yakov Samano MD; Dr. Gosia Delaney MD; Dr. Kevin Genao DO Signed Normal [facility] Abdomen Limitedon 11-19-2024 Abdomen Limited [facility] Imaging Services [address] [place], [place] [address] Abdomen Limited MR#: [id number] Acct: [id number] Name: FAHAD KIRK Rep #: [id number] : 1955 M 69 From: Tano Chan MD PCP: Dr. Gosia Delaney MD Status: ADM IN Study: Abdomen Limited Date of Exam: 11/19/24 Exam# [id number] Ordering Dr: Kevin Genao DO PROCEDURE: ABDOMEN LIMITED 11/19/2024 REASON FOR EXAM: ?ACUTE CHOLECYSTITIS TECHNIQUE: ABDOMEN LIMITED COMPARISON: CT 11/19/2024 FINDINGS: Gallbladder is distended with pericholecystic fluid, gallbladder wall thickening, cholelithiasis. CBD measures 7 mm. The liver, and visible pancreas are unremarkable. The right kidney measures 9 cm in length without hydronephrosis. US/Abdomen Limited IMPRESSION: Abnormal gallbladder, most consistent with cholecystitis. Reading Location: [place] [address] CC: Dr. Gosia Delaney MD; Dr. 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 Gosia Delaney MD Status: [facility] ER Study: Abdomen/Pelvis W IV Cont ONLY Date of Exam: Exam# [id number] Ordering Dr: Kevin Genao DO PROCEDURE: ABDOMEN/PELVIS [...] Recommend Surgical consultation +/- ultrasound. Reading Location: [facility] CC: Dr. Gosia Delaney MD; Dr. 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 Normal [facility] Absolute lymphocyte countOrd ered By: Kevin Genao on 11-19-2024 Lymphocytes Auto (Unsp spec) [#/Vol] 1.45 10*3/uL 0.83-4.51 [facility] Absolute neutrophil countOrd ered By: Kevin Genao on 11-19-2024 Neutrophils (Bld) [#/Vol] 14.0 10*3/uL High 2.0-7.7 [facility] Activated partial thrombopla stin time (aPTT) in platelet poor plasma by coagulation aOrdered By: Yakov Samano on 11-19-2024 aPTT Coag (PPP) [Time] 23.0 s Low 24.1-36.2 [facility] Anion gap in Serum or Plasma Ordered By: Kevin Genao on 11-19-2024 Anion gap [Moles/Vol] 15 mmol/L 5-15 [facility] Automated blood erythrocyte countOrdered By: Kevin Genao on 11-19-2024 RBC (Bld) [#/Vol] 4.43 10*6/uL Low 4.6-6.2 [facility] Comment on above: Performed By: #### L 501.4021, L100.0100, L500.2500 #### [facility] [address] [place], [address] Automated blood hematocrit ( percentage)Ordered By: Kevin Genao on 11-19-2024 Hematocrit (Bld) [Volume fraction] 39.2 % Low 40-54 [facility] Comment on above: Performed By: #### L 501.4021, L100.0100, L500.2500 #### [facility] [address] [place], [address] Automated lymphocyte count a s percentage of total leukocytesOrdered By: Kevin Genao on 11-19-2024 Lymphocytes/100 WBC Auto (Unsp spec) 8.8 % Low 19-41 [facility] BUN/creatinine ratioOrdered By: Kevin Genao on 11-19-2024 Urea nitrogen/Creatinine [Mass ratio] 17.7 mg/mg 10- [facility] Basic Metabolic Profile (BMP )on 11-19-2024 BUN/CRE 17.7 RATIO Normal 10-20 [facility] Comment on above: Performed By: #### L 501.4021, L100.0100, L500.2500 #### [facility] [address] [place], [address] ECRCL 54.76 ml/min Normal 50-250 [facility] Comment on above: Performed By: #### L 501.4021, L100.0100, L500.2500 #### [facility] [address] [place], [address] GAP 15 Normal 5-15 [facility] Comment on above: Performed By: #### L 501.4021, L100.0100, L500.2500 #### [facility] [address] [place], [address] Potassium [Moles/Vol] 3.7 mmol/L Normal 3.3-5.1 [facility] Comment on above: Performed By: #### L 501.4021, L100.0100, L500.2500 #### [facility] [address] [place], [address] Bilirubin directOrdered By: Kevin Genao on 11-19-2024 Bilirubin.direct [Mass/Vol] 0.76 mg/dL High 0.00-0.30 [facility] Comment on above: Performed By: #### L 501.4021, L100.0100, L500.2500 #### [facility] [address] [place], [address] Bilirubin, totalOrdered By: Kevin Genao on 11-19-2024 Bilirubin [Mass/Vol] 1.04 mg/dL Normal 0.00-1.30 [facility] Comment on above: Performed By: #### L 501.4021, L100.0100, L500.2500 #### [facility] [address] [place], [address] CBC W/Diff, Automatedon 11-07 Absolute Lymph 1.45 X10 3/uL Normal 0.83-4.51 [facility] Comment on above: Performed By: #### L 501.4021, L100.0100, L500.2500 #### [facility] [address] [place], [address] Absolute Neut 14.0 X10 3/uL High 2.0-7.7 [facility] Comment on above: Performed By: #### L 501.4021, L100.0100, L500.2500 #### [facility] [address] [place], [address] IG% 0.500 Normal 0.0-0.9 [facility] Comment on above: Result Comment: IG% - Immature Granulocytes (promyelocytes, myelocytes and metamyelocytes) > 1% indicates that a LEFT SHIFT is Present. Performed By: #### L 501.4021, L100.0100, L500.2500 #### [facility] [address] [place], [address] Lymphocytes/100 WBC (Bld) 8.8 % Low 19-41 [facility] Comment on above: Performed By: #### L 501.4021, L100.0100, L500.2500 #### [facility] [address] [place], [address] Nucleated RBC (Bld) [#/Vol] 0 10*3/uL Normal 0-5 [facility] Comment on above: Performed By: #### L 501.4021, L100.0100, L500.2500 #### [facility] [address] [place], [address] RDW SD 41.6 fl Normal 35.1-43.9 [facility] Comment on above: Performed By: #### L 501.4021, L100.0100, L500.2500 #### [facility] [address] [place], [address] Carbon dioxide, total [Moles /volume] in Central venous bloodOrdered By: Kevin Genao on 11-19-2024 CO2 [Moles/Vol] 22.0 mmol/L Normal 21.0-32.0 [facility] Comment on above: Performed By: #### L 501.4021, L100.0100, L500.2500 #### [facility] [address] [place], [address] Chest 1 View (Portable)on Chest 1 View (Portable) [facility] Imaging Services [address] [place] [address] Chest 1 View (Portable) MR#: [id number] Acct: [id number] Name: FAHAD KIRK Rep #: [id number] : 1955 M 69 From: Antony Whitehead MD PCP: Dr. Gosia Delaney MD Status: PRE ER Study: Chest 1 View (Portable) Date of Exam: 11/19/24 Exam# [id number] Ordering Dr: Kevin Genao DO PROCEDURE: CHEST [...] of an acute cardiopulmonary abnormality. Reading Location: [facility] CC: Dr. Gosia Delaney MD; Dr. 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, [address] Emergency Department Summary on 11-19-2024 Emergency Department Summary [facility] Medical Records Department [address] [place] [address] Emergency Department Summary 11/19/24 MR#: [id number] Acct: [id number] Name: FAHAD KIRK Rep #: [id number] : 1955 69 From: Kevin Genao DO PCP: Dr. Gosia Delaney MD Status:DIS IN Location: [facility] ER502-0 HPI History of Present Illness Chief Complaint: Chest Pain [facility] Medical History Alcohol abuse Alcoholism Carotid [...] DAILY 08/05/21 Unknown History mg tablet omega 0-ghh-ioi-fish oil 300 1 cap PO BID 02/02/22 [...] details: gym frequency: 3-4 times per week angie/uatsdin: Jain seatbelt use: always EXAM Physical Exam Const [...] Temperature Temperature (more content not included)... Normal [facility] Eosinophil percentageOrdered By: Kevin Genao on 11-19-2024 Eosinophils/100 WBC (Bld) 1.3 % Normal 0-5 [facility] Comment on above: Performed By: #### L 501.4021, L100.0100, L500.2500 #### [facility] [address] [place], [address] Erythrocyte distribution wid th ratioOrdered By: Kevin Genao on 11-19-2024 Erythrocyte distribution width (RBC) [Ratio] 12.8 % Normal 11.6-14.6 [facility] Comment on above: Performed By: #### L 501.4021, L100.0100, L500.2500 #### [facility] [address] [place], [address] Erythrocyte distribution wid th standard deviationOrdered By: Kvein Genao on 11-19-2024 Erythrocyte distribution width (RBC) [Ratio] 41.6 fl 35.1-43.9 [facility] Glomerular filtration rate ( GFR) estimation/1.73 sq m using serum, plasma, or whole bOrdered By: Kevin Genao on 11-19-2024 GFR/1.73 sq M.predicted among non-blacks MDRD (S/P/Bld) [Vol rate/Area] 83 mL/min/{1.73_m2} Normal >60 [facility] Comment on above: mL/min/1.73m2 CKD-EP I Creatinine Equation (2020) Result Comment: mL/m in/1.73m2 CKD-EPI Creatinine Equation (2020) Performed By: #### L 501.4021, L100.0100, L500.2500 #### [facility] [address] [place], [place], [address] H AND P Exam - Surgicalon H&P Exam - Surgical [facility] Medical Records Department [address] [place] [address] H P Exam - Surgical 11/19/244 MR#: [id number] Acct: [id number] Name: FAHAD KIRK Rep #: [id number] : 1955 69 From: Yakov Samano MD PCP: Dr. Gosia Delaney MD Status:REG ER Location: ED HPI - General HPI Narrative FAHAD KIRK, is a 69 M who presents with abdominal pain. Patient reports the pain started yesterday. He has been feeling unwell for a few days. He currently denies any nausea or vomiting but he did vomit once today. [facility] Medical History Alcohol abuse Alcoholism Carotid stenosis, [...] DAILY 08/05/21 Unknown History mg tablet omega 8-kkk-nuw-fish oil 300 1 cap PO BID 02/02/22 [...] details: gym frequency: 3-4 times per week angie/uatsdin: Jain seatbelt use: always ROS Constitutional Constitutional: Denies [...] 63 Res (more content not included)... Normal [facility] Immature granulocytes/100 WB C Auto (Bld)Ordered By: Kevin Genao on 11-19-2024 Immature granulocytes/100 WBC (Bld) 0.500 % 0.0-0.9 [facility] Comment on above: IG% - Immature Granu locytes (promyelocytes, myelocytes and metamyelocytes) > 1% indicates that a LEFT SHIFT is Present. International normalized rat io (INR) calculationOrdered By: Yakov Samano on 11-19-2024 INR Coag (Bld) [Relative time] 1.0 {INR} [facility] L499.0042on 11-19-2024 Trop T High Sen 10 ng/L Normal <=22 [facility] Comment on above: Performed By: #### L 499.0042 #### [facility] [address] [place], [address] L501.4021on 11-19-2024 Trop T High Sen 10 ng/L Normal <=22 [facility] Comment on above: Performed By: #### L 501.4021, L100.0100, L500.2500 #### [facility] [address] [place], [address] Lipase measurementOrdered By : Kevin Genao on 11-19-2024 Lipase [Catalytic activity/Vol] 2936 U/L High 13-75 [facility] Comment on above: Please note:LIPASE r [...] By: #### L 501.4021, L100.0100, L500.2500 #### [facility] [address] [place], [address] Liver Profileon 11-19-2024 ALK PHOS 106 U/L Normal 40-129 [facility] Comment on above: Performed By: #### L 501.4021, L100.0100, L500.2500 #### [facility] [address] [place], [address] T PROT 6.7 g/dL Normal 5.9-8.4 [facility] Comment on above: Performed By: #### L 501.4021, L100.0100, L500.2500 #### [facility] [address] [place], [address] Liver ProfileOrdered By: Trice Genao on 11-19-2024 AST [Catalytic activity/Vol] 217 U/L High <=37 [facility] Comment on above: Performed By: #### L 501.4021, L100.0100, L500.2500 #### [facility] [address] [place], [address] MCV (mean corpuscular volume ) determinationOrdered By: Kevin Genao on 11-19-2024 MCV (RBC) [Entitic vol] 88.5 fL Normal 80-94 [facility] Comment on above: Performed By: #### L 501.4021, L100.0100, L500.2500 #### [facility] [address] [place], [address] Mean corpuscular hemoglobin (MCH) determinationOrdered By: Kevin Genao on 11-19-2024 MCH (RBC) [Entitic mass] 31.6 pg Normal 27.0-32.0 [facility] Comment on above: Performed By: #### L 501.4021, L100.0100, L500.2500 #### [facility] [address] [place], [address] Mean corpuscular hemoglobin concentration (MCHC) determinationOrdered By: Kevin Genao on 11-19-2024 MCHC (RBC) [Mass/Vol] 35.7 g/dL Normal 32-36 [facility] Comment on above: Performed By: #### L 501.4021, L100.0100, L500.2500 #### [facility] [address] [place], [address] Mean platelet volume determi nationOrdered By: Kevin Genao on 11-19-2024 Platelet mean volume (Bld) [Entitic vol] 10.5 fL Normal 6.2-12.0 [facility] Comment on above: Performed By: #### L 501.4021, L100.0100, L500.2500 #### [facility] [address] [place], [address] Monocyte percentageOrdered B y: Kevin Genao on 11-19-2024 Monocytes/100 WBC (Bld) 4.3 % Normal 0-10 [facility] Comment on above: Performed By: #### L 501.4021, L100.0100, L500.2500 #### [facility] [address] [place], [address] Neutrophil percentageOrdered By: Kevin Genao on 11-19-2024 Neutrophils/100 WBC (Bld) 84.9 % High 47-70 [facility] Comment on above: Performed By: #### L 501.4021, L100.0100, L500.2500 #### [facility] [address] [place], [address] Platelet countOrdered By: Derian Genao on 11-19-2024 Platelets (Bld) [#/Vol] 227 10*3/uL Normal 150-450 [facility] Comment on above: Performed By: #### L 501.4021, L100.0100, L500.2500 #### [facility] [address] [place], [address] Potassium measurement (mass/ volume)Ordered By: eKvin Genao on 11-19-2024 Potassium (Unsp spec) [Mass/Vol] 3.7 mmol/L 3.3-5.1 [facility] Serum creatinine measurement (mass/volume)Ordered By: Kevin Genao on 11-19-2024 Creatinine [Mass/Vol] 0.98 mg/dL Normal 0.70-1.20 [facility] Comment on above: Performed By: #### L 501.4021, L100.0100, L500.2500 #### [facility] [address] [place], [address] Serum globulin measurementOr dered By: Kevin Genao on 11-19-2024 Globulin (S) [Mass/Vol] 2.4 g/dL Normal 2.2-4.2 [facility] Comment on above: Performed By: #### L 501.4021, L100.0100, L500.2500 #### [facility] [address] [place], [address] Serum glucose measurement (m ass/volume)Ordered By: Kevin Genao on 11-19-2024 Glucose [Mass/Vol] 136 mg/dL High 70-99 [facility] Comment on above: Performed By: #### L 501.4021, L100.0100, L500.2500 #### [facility] [address] [place], [address] Serum or plasma alanine gibson otransferase (ALT) measurementOrdered By: Kevin Genao on 11-19-2024 ALT [Catalytic activity/Vol] 126 U/L High <=46 [facility] Comment on above: Performed By: #### L 501.4021, L100.0100, L500.2500 #### [facility] [address] [place], [address] Serum or plasma albumin zac urement (mass/volume)Ordered By: Kevin Genao on 11-19-2024 Albumin [Mass/Vol] 4.3 g/dL Normal 3.4-4.8 [facility] Comment on above: Performed By: #### L 501.4021, L100.0100, L500.2500 #### [facility] [address] [place], [address] Serum or plasma alkaline rafa sphatase measurementOrdered By: Kevin Genao on 11-19-2024 ALP [Catalytic activity/Vol] 106 U/L 40-129 [facility] Serum or plasma calcium zac urement (mass/volume)Ordered By: Kevin Genao on 11-19-2024 Calcium [Mass/Vol] 9.2 mg/dL Normal 7.6-11.0 [facility] Comment on above: Performed By: #### L 501.4021, L100.0100, L500.2500 #### [facility] [address] [place], [address] Serum or plasma urea nitroge n measurement (mass/volume)Ordered By: Kevin Genao on 11-19-2024 Urea nitrogen [Mass/Vol] 17 mg/dL Normal 4-19 [facility] Comment on above: Performed By: #### L 501.4021, L100.0100, L500.2500 #### [facility] [address] [place], [address] Total proteinOrdered By: Trice Genao on 11-19-2024 Protein [Mass/Vol] 6.7 g/dL 5.9-8.4 [facility] Troponin T.cardiac [Mass/vol ume] in Serum or Plasma by High sensitivity methodOrdered By: Kevin Genao on 11-19-2024 Troponin T.cardiac High sensitivity method [Mass/Vol] 10 ng/L <22 [facility] White blood cell (WBC) count Ordered By: Kevin Genao on 11-19-2024 WBC (Bld) [#/Vol] 16.5 10*3/uL High 4.4-11.0 [facility] Comment on above: Performed By: #### L 501.4021, L100.0100, L500.2500 #### [facility] [address] [place], [place], [address] Neurology Visit Reporton Neurology Visit Report [facility] [address] [facility] [address], [address] [place], [place] [address] OFFICE VISIT Date of Service: 11/08/24 MR#: [id number] Acct: [id number] Name: FAHAD KIRK Rep #: [id number] : 1955 Provider: Dr. Tuan vo MD Age/Sex: 69/M [place] [facility] [place]: Signed HPI HPI Chief Complaint: Details: [...] common c (more content not included)... Normal [facility] Urine Sodiumon 07-12-2024 Sodium (U) [Moles/Vol] 130 mmol/L Normal Not Establ. [facility] Comment on above: Performed By: #### L 501.5500 #### [facility] [place], [address] Urine sodium measurement (mo les/volume)Ordered By: Tina Sutherland on 07-12-2024 Sodium (U) [Moles/Vol] 130 mmol/L Not Establ. [facility] Absolute neutrophil countOrd ered By: Gosia Delaney on 06-21-2024 Neutrophils (Bld) [#/Vol] 5.6 10*3/uL 2.0-7.7 [facility] Albumin to globulin ratioOrd ered By: Gosia Delaney on 06-21-2024 Albumin/Globulin [Mass ratio] 1.1 {ratio} 0.9-2.4 [facility] Basophil percentageOrdered B y: Gosia Delaney on 06-21-2024 Basophils/100 WBC (Bld) 0.5 % 0-1 [facility] Bilirubin, totalOrdered By: Gosia Delaney on 06-21-2024 Bilirubin [Mass/Vol] 0.60 mg/dL 0.20-1.00 [facility] Comment on above: For patients on eltr ombopag therapy, use of Dimension Hadley TBIL is not recommended. Blood urea nitrogen (BUN)/cr eatinine ratioOrdered By: Gosia Delaney on 06-21-2024 Urea nitrogen/Creatinine [Mass ratio] 12.2 mg/mg 10-20 [facility] CBC W/Diff, Automatedon 06-10 Absolute Lymph 2.18 X10 3/uL Normal 0.83-4.51 [facility] Comment on above: Order Comment: Order Date: 06/20/24Order Info: 0184-1 - CBCD Performed By: #### L 501.4021, L100.0100, L500.2500 #### [facility] [address] [place], [address] Absolute Neut 5.6 X10 3/uL Normal 2.0-7.7 [facility] Comment on above: Order Comment: Order Date: 06/20/24Order Info: 0184-1 - CBCD Performed By: #### L 501.4021, L100.0100, L500.2500 #### [facility] [address] [place], [address] Basophils/100 WBC (Bld) 0.5 % Normal 0-1 [facility] Comment on above: Order Comment: Order Date: 06/20/24Order Info: 0184-1 - CBCD Performed By: #### L 501.4021, L100.0100, L500.2500 #### [facility] [address] [place], [address] Eosinophils/100 WBC (Bld) 2.6 % Normal 0-5 [facility] Comment on above: Order Comment: Order Date: 06/20/24Order Info: 0184-1 - CBCD Performed By: #### L 501.4021, L100.0100, L500.2500 #### [facility] [address] [place], [address] Erythrocyte distribution width (RBC) [Ratio] 13.2 % Normal 11.6-14.6 [facility] Comment on above: Order Comment: Order Date: 06/20/24Order Info: 0184-1 - CBCD Performed By: #### L 501.4021, L100.0100, L500.2500 #### [facility] [address] [place], [address] Hematocrit (Bld) [Volume fraction] 43.8 % Normal 40-54 [facility] Comment on above: Order Comment: Order Date: 06/20/24Order Info: 018- - CBCD Performed By: #### L 501.4021, L100.0100, L500.2500 #### [facility] [address] [place], [address] Hemoglobin (Bld) [Mass/Vol] 14.9 g/dL Normal 13.0-16.5 [facility] Comment on above: Order Comment: Order Date: 06/20/24Order Info: 018- - CBCD Performed By: #### L 501.4021, L100.0100, L500.2500 #### [facility] [address] [place], [address] IG% 0.300 Normal 0.0-0.9 [facility] Comment on above: Order Comment: Order Date: 06/20/24Order Info: 018- - CBCD Result Comment: IG% - Immature Granulocytes (promyelocytes, myelocytes and metamyelocytes) > 1% indicates that a LEFT SHIFT is Present. Performed By: #### L 501.4021, L100.0100, L500.2500 #### [facility] [address] [place], [address] Lymphocytes/100 WBC (Bld) 24.9 % Normal 19-41 [facility] Comment on above: Order Comment: Order Date: 06/20/24Order Info: 018- - CBCD Performed By: #### L 501.4021, L100.0100, L500.2500 #### [facility] [address] [place], [address] MCH (RBC) [Entitic mass] 31.3 pg Normal 27.0-32.0 [facility] Comment on above: Order Comment: Order Date: 06/20/24Order Info: 0184-1 - CBCD Performed By: #### L 501.4021, L100.0100, L500.2500 #### [facility] [address] [place], [address] MCHC (RBC) [Mass/Vol] 34.0 g/dL Normal 32-36 [facility] Comment on above: Order Comment: Order Date: 06/20/24Order Info: 0184- - CBCD Performed By: #### L 501.4021, L100.0100, L500.2500 #### [facility] [address] [place], [address] MCV (RBC) [Entitic vol] 92.0 fL Normal 80-94 [facility] Comment on above: Order Comment: Order Date: 06/20/24Order Info: 018- - CBCD Performed By: #### L 501.4021, L100.0100, L500.2500 #### [facility] [address] [place], [address] Monocytes/100 WBC (Bld) 7.9 % Normal 0-10 [facility] Comment on above: Order Comment: Order Date: 06/20/24Order Info: 018- - CBCD Performed By: #### L 501.4021, L100.0100, L500.2500 #### [facility] [address] [place], [address] Neutrophils/100 WBC (Bld) 63.8 % Normal 47-70 [facility] Comment on above: Order Comment: Order Date: 06/20/24Order Info: 0184-1 - CBCD Performed By: #### L 501.4021, L100.0100, L500.2500 #### [facility] [address] [place], [address] Nucleated RBC (Bld) [#/Vol] 0 10*3/uL Normal 0-5 [facility] Comment on above: Order Comment: Order Date: 06/20/24Order Info: 0184-1 - CBCD Performed By: #### L 501.4021, L100.0100, L500.2500 #### [facility] [address] [place], [address] Platelet mean volume (Bld) [Entitic vol] 11.0 fL Normal 6.2-12.0 [facility] Comment on above: Order Comment: Order Date: 06/20/24Order Info: 018- - CBCD Performed By: #### L 501.4021, L100.0100, L500.2500 #### [facility] [address] [place], [address] Platelets (Bld) [#/Vol] 245 10*3/uL Normal 150-450 [facility] Comment on above: Order Comment: Order Date: 06/20/24Order Info: 018- - CBCD Performed By: #### L 501.4021, L100.0100, L500.2500 #### [facility] [address] [place], [address] RBC (Bld) [#/Vol] 4.76 10*6/uL Normal 4.6-6.2 [facility] Comment on above: Order Comment: Order Date: 06/20/24Order Info: 0184-1 - CBCD Performed By: #### L 501.4021, L100.0100, L500.2500 #### [facility] [address] [place], [address] RDW SD 45.3 fl High 35.1-43.9 [facility] Comment on above: Order Comment: Order Date: 06/20/24Order Info: 0184-1 - CBCD Performed By: #### L 501.4021, L100.0100, L500.2500 #### [facility] [address] [place], [address] WBC (Bld) [#/Vol] 8.8 10*3/uL Normal 4.4-11.0 [facility] Comment on above: Order Comment: Order Date: 06/20/24Order Info: 0184-1 - CBCD Performed By: #### L 501.4021, L100.0100, L500.2500 #### [facility] [address] [place], [address] Carbon dioxide measurementOr dered By: Gosia Delaney on 06-21-2024 CO2 [Moles/Vol] 27.0 mmol/L 21.0-32.0 [facility] Chloride measurementOrdered By: Gosia Delaney on 06-21-2024 Chloride [Moles/Vol] 97 mmol/L Low 98-107 [facility] Comprehensive Metabolic Prof ilon 06-21-2024 Albumin [Mass/Vol] 4.1 g/dL Normal 3.2-5.0 [facility] Comment on above: Order Comment: Order Date: 06/20/24Order Info: 0786-1 - CMPOrder Info: [id number] - MGOrder Info: 3016-3 - TSH Performed By: #### L 501.4021, L100.0100, L500.2500 #### [facility] [address] [place], [address] Albumin/Globulin [Mass ratio] 1.1 {ratio} Normal 0.9-2.4 [facility] Comment on above: Order Comment: Order Date: 06/20/24Order Info: 0786-1 - CMPOrder Info: [id number] - MGOrder Info: 3016-3 - TSH Performed By: #### L 501.4021, L100.0100, L500.2500 #### [facility] [address] [place], [address] ALK P 74 U/L Normal 45-117 [facility] Comment on above: Order Comment: Order Date: 06/20/24Order Info: 0786-1 - CMPOrder Info: [id number] - MGOrder Info: 3016-3 - TSH Performed By: #### L 501.4021, L100.0100, L500.2500 #### [facility] [address] [place], [address] ALT [Catalytic activity/Vol] 27 U/L Normal 16-61 [facility] Comment on above: Order Comment: Order Date: 06/20/24Order Info: 0786-1 - CMPOrder Info: [id number] - MGOrder Info: 3016-3 - TSH Performed By: #### L 501.4021, L100.0100, L500.2500 #### [facility] [address] [place], [address] AST [Catalytic activity/Vol] 21 U/L Normal 15-37 [facility] Comment on above: Order Comment: Order Date: 06/20/24Order Info: 0786-1 - CMPOrder Info: [id number] - MGOrder Info: 3016-3 - TSH Performed By: #### L 501.4021, L100.0100, L500.2500 #### [facility] [address] [place], [address] Bilirubin [Mass/Vol] 0.60 mg/dL Normal 0.20-1.00 [facility] Comment on above: Order Comment: Order Date: 06/20/24Order Info: 0786-1 - CMPOrder Info: [id number] - MGOrder Info: 3016-3 - TSH Result Comment: For patients on eltrombopag therapy, use of Dimension [place] TBIL is not recommended. Performed By: #### L 501.4021, L100.0100, L500.2500 #### [facility] [address] [place], [address] BUN/CRE 12.2 RATIO Normal 10-20 [facility] Comment on above: Order Comment: Order Date: 06/20/24Order Info: 0786-1 - CMPOrder Info: [id number] - MGOrder Info: 3016-3 - TSH Performed By: #### L 501.4021, L100.0100, L500.2500 #### [facility] [address] [place], [address] CA,Total 9.3 mg/dL Normal 8.5-10.1 [facility] Comment on above: Order Comment: Order Date: 06/20/24Order Info: 86-1 - CMPOrder Info: - MGOrder Info: [id number] - TSH Performed By: #### L 501.4021, L100.0100, L500.2500 #### [facility] [address] [place], [address] Chloride [Moles/Vol] 97 mmol/L Low 98-107 [facility] Comment on above: Order Comment: Order Date: 06/20/24Order Info: 785-1 - CMPOrder Info: - MGOrder Info: [id number] - TSH Performed By: #### L 501.4021, L100.0100, L500.2500 #### [facility] [address] [place], [address] CO2 [Moles/Vol] 27.0 mmol/L Normal 21.0-32.0 [facility] Comment on above: Order Comment: Order Date: 06/20/24Order Info: 07-1 - CMPOrder Info: - MGOrder Info: [id number] - TSH Performed By: #### L 501.4021, L100.0100, L500.2500 #### [facility] [address] [place], [address] Creatinine [Mass/Vol] 1.23 mg/dL Normal 0.70-1.30 [facility] Comment on above: Order Comment: Order Date: 06/20/24Order Info: 0786-1 - CMPOrder Info: - MGOrder Info: [id number] - TSH Result Comment: The validity of the calculated GFR GFRAA in patients over 70 years has not been determined. Clinical correlation is essential. Performed By: #### L 501.4021, L100.0100, L500.2500 #### [facility] [address] [place], [address] EST GFR - AA 75 mL/min Normal >60 [facility] Comment on above: Order Comment: Order Date: 06/20/24Order Info: 0786-1 - CMPOrder Info: [id number] - MGOrder Info: 3016-3 - TSH Result Comment: Afri can Cymraes GFR Calc Performed By: #### L 501.4021, L100.0100, L500.2500 #### [facility] [address] [place], [address] GAP 8 Normal 5-15 [facility] Comment on above: Order Comment: Order Date: 06/20/24Order Info: 07-1 - CMPOrder Info: [id number] - MGOrder Info: 3015-3 - TSH Performed By: #### L 501.4021, L100.0100, L500.2500 #### [facility] [address] [place], [address] GFR/1.73 sq M.predicted among non-blacks MDRD (S/P/Bld) [Vol rate/Area] 62 mL/min/{1.73_m2} Normal >60 [facility] Comment on above: Order Comment: Order Date: 06/20/24Order Info: 0786-1 - CMPOrder Info: [id number] - MGOrder Info: 3016-3 - TSH Result Comment: Non- GFR Calc Performed By: #### L 501.4021, L100.0100, L500.2500 #### [facility] [address] [place], [address] Globulin (S) [Mass/Vol] 3.6 g/dL Normal 2.2-4.2 [facility] Comment on above: Order Comment: Order Date: 06/20/24Order Info: 0786-1 - CMPOrder Info: [id number] - MGOrder Info: 3016-3 - TSH Performed By: #### L 501.4021, L100.0100, L500.2500 #### [facility] [address] [place], [address] Glucose [Mass/Vol] 95 mg/dL Normal 74-106 [facility] Comment on above: Order Comment: Order Date: 06/20/24Order Info: 86-1 - CMPOrder Info: [id number] - MGOrder Info: 6-3 - TSH Performed By: #### L 501.4021, L100.0100, L500.2500 #### [facility] [address] [place], [address] Potassium [Moles/Vol] 4.3 mmol/L Normal 3.5-5.1 [facility] Comment on above: Order Comment: Order Date: 06/20/24Order Info: 86-1 - CMPOrder Info: [id number] - MGOrder Info: 3015-3 - TSH Performed By: #### L 501.4021, L100.0100, L500.2500 #### [facility] [address] [place], [address] Sodium [Moles/Vol] 132 mmol/L Low 136-145 [facility] Comment on above: Order Comment: Order Date: 06/20/24Order Info: 0786-1 - CMPOrder Info: [id number] - MGOrder Info: 3015-3 - TSH Performed By: #### L 501.4021, L100.0100, L500.2500 #### [facility] [address] [place], [address] T PROT 7.7 g/dL Normal 6.4-8.2 [facility] Comment on above: Order Comment: Order Date: 06/20/24Order Info: 0786-1 - CMPOrder Info: [id number] - MGOrder Info: 3016-3 - TSH Performed By: #### L 501.4021, L100.0100, L500.2500 #### [facility] [address] [place], [address] Urea nitrogen [Mass/Vol] 15 mg/dL Normal 7-18 [facility] Comment on above: Order Comment: Order Date: 06/20/24Order Info: 0786-1 - CMPOrder Info: [id number] - MGOrder Info: 3016-3 - TSH Performed By: #### L 501.4021, L100.0100, L500.2500 #### [facility] [address] [place], [address] Eosinophil percentageOrdered By: Gosia Delaney on 06-21-2024 Eosinophils/100 WBC (Bld) 2.6 % 0-5 [facility] Erythrocyte distribution wid th ratioOrdered By: Gosia Delaney on 06-21-2024 Erythrocyte distribution width (RBC) [Ratio] 13.2 % 11.6-14.6 [facility] Erythrocyte distribution wid th standard deviationOrdered By: Gosia Delaney on 06-21-2024 Erythrocyte distribution width (RBC) [Entitic vol] 45.3 fL High 35.1-43.9 [facility] Estimated glomerular filtrat ion rate (GFR) AmericanOrdered By: Gosia Delaney on 06-21-2024 Estimated GFR (MDRD) Amer 75 mL/min >60 [facility] Comment on above: GFR Calc Glomerular filtration rate ( GFR) estimationOrdered By: Gosia Delaney on 06-21-2024 Estimated GFR (MDRD) Non-Af Amer 62 mL/min >60 [facility] Comment on above: Non- GFR Calc Glucose measurementOrdered B y: Gosia Delaney on 06-21-2024 Glucose [Mass/Vol] 95 mg/dL 74-106 [facility] Hematocrit Auto (Bld) [Volum e fraction]Ordered By: Gosia Delaney on 06-21-2024 Hematocrit (Bld) [Volume fraction] 43.8 % 40-54 [facility] Hemoglobin measurementOrdere d By: Gosia Delaney on 06-21-2024 Hemoglobin (Bld) [Mass/Vol] 14.9 g/dL 13.0-16.5 [facility] Immature granulocytes/100 WB C Auto (Bld)Ordered By: Gosia Delaney on 06-21-2024 Immature granulocytes/100 WBC (Bld) 0.300 % 0.0-0.9 [facility] Comment on above: IG% - Immature Granu locytes (promyelocytes, myelocytes and metamyelocytes) > 1% indicates that a LEFT SHIFT is Present. Laboratory - Chemistry and C hemistry - challengeOrdered By: Gosia Delaney on 06-21-2024 AST [Catalytic activity/Vol] 21 U/L 15-37 [facility] Lymphocytes Auto (Unsp spec) [#/Vol]Ordered By: Gosia Delaney on 06-21-2024 Lymphocytes (Bld) [#/Vol] 2.18 10*3/uL 0.83-4.5 1 [facility] Lymphocytes/100 WBC Auto (Un sp spec)Ordered By: Gosia Delaney on 06-21-2024 Lymphocytes/100 WBC (Bld) 24.9 % 19-41 [facility] MCV (mean corpuscular volume ) determinationOrdered By: Gosia Delaney on 06-21-2024 MCV (RBC) [Entitic vol] 92.0 fL 80-94 [facility] Magnesiumon 06-21-2024 Magnesium [Mass/Vol] 2.2 mg/dL Normal 1.6-2.6 [facility] Comment on above: Order Comment: Order Date: 06/20/24Order Info: 0786-1 - CMPOrder Info: [id number] - MGOrder Info: [id number] - TSH Performed By: #### L 501.4021, L100.0100, L500.2500 #### [facility] [place], [place], [id number] Magnesium measurementOrdered By: Gosia Delaney on 06-21-2024 Magnesium [Mass/Vol] 2.2 mg/dL 1.6-2.6 [facility] Mean corpuscular hemoglobin (MCH) determinationOrdered By: Gosia Delaney on 06-21-2024 MCH (RBC) [Entitic mass] 31.3 pg 27.0-32.0 [facility] Mean corpuscular hemoglobin concentration (MCHC) determinationOrdered By: Gosia Delaney on 06-21-2024 MCHC (RBC) [Mass/Vol] 34.0 g/dL 32-36 [facility] Mean platelet volume determi nationOrdered By: Gosia Delaney on 06-21-2024 Platelet mean volume (Bld) [Entitic vol] 11.0 fL 6.2-12.0 [facility] Microalb:Creat Ratio,Random URon 06-21-2024 Creatinine [Mass/Vol] 78.60 mg/dL Normal NO RAN GE EST. [facility] Comment on above: Order Comment: Order Date: 06/20/24Order Info: [id number] - NAUOrder Info: [id number] - OSUOrder Info: [id number] - MIACRE Performed By: #### L 501.4021, L100.0100, L500.2500 #### [facility] [address] [place], [address] MALB:CRE 38.8 mg/g CRE High <30 mg/g CRE [facility] Comment on above: Order Comment: Order Date: 06/20/24Order Info: [id number] - NAUOrder Info: [id number] - OSUOrder Info: [id number] - MIACRE Performed By: #### L 501.4021, L100.0100, L500.2500 #### [facility] [address] [place], [address] MICROALBUMIN,UR 30.5 mg/L Normal NO RANGE EST. [facility] Comment on above: Order Comment: Order Date: 06/20/24Order Info: [id number] - NAUOrder Info: [id number] - OSUOrder Info: [id number] - MIACRE Performed By: #### L 501.4021, L100.0100, L500.2500 #### [facility] [address] [place], [address] Monocyte percentageOrdered B y: Gosia Delaney on 06-21-2024 Monocytes/100 WBC (Bld) 7.9 % 0-10 [facility] Neutrophil percentageOrdered By: Goisa Delaney on 06-21-2024 Neutrophils/100 WBC (Bld) 63.8 % 47-70 [facility] Nucleated red blood cell per centageOrdered By: Gosia Delaney on 06-21-2024 Nucleated RBC/100 WBC (Bld) [Ratio] 0 % 0-5 [facility] Osmolality (U) [Osmolality]O rdered By: Gosia Delaney on 06-21-2024 Urine Osmolality 383 mOsm/KG >50 [facility] Comment on above: Normal Urine Referen ce Ranges Random: 50 - 1200 mOsm/kg H20 depending on fluid intake Random: >850 mOsm/kg after 12 hour fluid restriction 24 hour: ~300 - 900 mOsm/kg H2O Osmolality, Serumon 06-21-19 25 OSMOLALITY,SER 276 mOsm/KG Low 280-301 [facility] Comment on above: Order Comment: Order Date: 06/20/24Order Info: [id number] - OS Performed By: #### L 501.4021, L100.0100, L500.2500 #### [facility] [address] [facility] [place], [address] Osmolality, Urineon 06-21-19 25 OSMOLALITY,UR 383 mOsm/KG Normal [facility] Comment on above: Order Comment: Order Date: 06/20/24Order Info: [id number] - NAUOrder Info: [id number] - OSUOrder Info: [id number] - MIACRE Result Comment: Normal Urine Reference Ranges Random: 50 - 1200 mOsm/kg H20 depending on fluid intake Random: >850 mOsm/kg after 12 hour fluid restriction 24 hour: 300 - 900 mOsm/kg H2O Performed By: #### L 501.4021, L100.0100, L500.2500 #### [facility] [address] [place], [address] Osmolality, serumOrdered By: Gosia Delaney on 06-21-2024 Serum Osmolality 276 mOsm/KG Low 280-301 [facility] Platelet countOrdered By: Joni Delaney on 06-21-2024 Platelets (Bld) [#/Vol] 245 10*3/uL 150-450 [facility] Potassium measurementOrdered By: Gosia Delaney on 06-21-2024 Potassium [Moles/Vol] 4.3 mmol/L 3.5-5.1 [facility] RBC Auto (Bld) [#/Vol]Ordere d By: Gosia Delaney on 06-21-2024 RBC (Bld) [#/Vol] 4.76 10*6/uL 4.6-6.2 [facility] Random urine microalbumin me asurementOrdered By: Gosia Delaney on 06-21-2024 Urine Random Microalbumin 30.5 mg/L NO RANGE EST. [facility] Serum anion gap measurementO rdered By: Gosia Delaney on 06-21-2024 Anion gap [Moles/Vol] 8 mmol/L 5-15 [facility] Serum globulin measurementOr dered By: Gosia Delaney on 06-21-2024 Globulin (S) [Mass/Vol] 3.6 g/dL 2.2-4.2 [facility] Serum or plasma alanine gibson otransferase (ALT) measurementOrdered By: Gosia Delaney on 06-21-2024 ALT [Catalytic activity/Vol] 27 U/L 16-61 [facility] Serum or plasma albumin zac urement (mass/volume)Ordered By: Gosia Delaney on 06-21-2024 Albumin [Mass/Vol] 4.1 g/dL 3.2-5.0 [facility] Serum or plasma alkaline rafa sphatase measurementOrdered By: Gosia Delaney on 06-21-2024 ALP [Catalytic activity/Vol] 74 U/L 45-117 [facility] Serum or plasma calcium zac urement (mass/volume)Ordered By: Gosia Delaney on 06-21-2024 Calcium [Mass/Vol] 9.3 mg/dL 8.5-10.1 [facility] Serum or plasma creatinine m easurement (mass/volume)Ordered By: Gosia Delaney on 06-21-2024 Creatinine [Mass/Vol] 1.23 mg/dL 0.70-1.30 [facility] Comment on above: The validity of the calculated GFR & GFRAA in patients over 70 years has not been determined. Clinical correlation is essential. Serum or plasma urea nitroge n measurement (mass/volume)Ordered By: Gosia Delaney on 06-21-2024 Urea nitrogen [Mass/Vol] 15 mg/dL 7-18 [facility] Sodium levelOrdered By: Gosia Delaney on 06-21-2024 Sodium [Moles/Vol] 132 mmol/L Low 136-145 [facility] Sodium urOrdered By: Gosia ugalde on 06-21-2024 Sodium (U) [Moles/Vol] 48 mmol/L Not Establ. [facility] TSH QnOrdered By: Gosia Delaney on 06-21-2024 Thyroid Stimulating Hormone (TSH) 2.900 uIU/mL 0.358-3.740 [facility] Thyroid Stim Hormone (TSH)on 06-21-2024 TSH 2.900 uIU/mL Normal 0.358-3.740 [facility] Comment on above: Order Comment: Order Date: 06/20/24Order Info: 0786-1 - CMPOrder Info: [id number] - MGOrder Info: [id number] - TSH Performed By: #### L 501.4021, L100.0100, L500.2500 #### [facility] [address] [place], [place], [id number] Total proteinOrdered By: Julia Delaney on 06-21-2024 Protein [Mass/Vol] 7.7 g/dL 6.4-8.2 [facility] Urine Sodiumon 06-21-2024 Sodium (U) [Moles/Vol] 48 mmol/L Normal Not Establ. [facility] Comment on above: Order Comment: Order Date: 06/20/24Order Info: [id number] - NAUOrder Info: [id number] - OSUOrder Info: [id number] - MIACRE Performed By: #### L 501.4021, L100.0100, L500.2500 #### [facility] [address] [place], [place], [id number] Urine albumin/creatinine rat io for detection of microalbuminuriaOrdered By: Gosia Delaney on 06-21-2024 Urine Microalbumin/Creatinine Ratio 38.8 mg/g CRE High <30 [facility] Urine creatinine measurement (mass/volume)Ordered By: Gosia Delaney on 06-21-2024 Creatinine (U) [Mass/Vol] 78.60 mg/dL NO RANGE EST. [facility] White blood cell (WBC) count Ordered By: Gosia Delaney on 06-21-2024 WBC (Bld) [#/Vol] 8.8 10*3/uL 4.4-11.0 [facility] Osmolality, Urineon 01-19-20 24 OSMOLALITY,UR 551 mOsm/KG Normal [facility] Comment on above: Order Comment: Order Date: 01/13/24Order Info: 2955-3 - GEORGE Result Comment: Normal Urine Reference Ranges Random: 50 - 1200 mOsm/kg H20 depending on fluid intake Random: >850 mOsm/kg after 12 hour fluid restriction 24 hour: 300 - 900 mOsm/kg H2O Performed By: #### L 501.4021, L100.0100, L500.2500 #### [facility] [address] [place], [place], [address] Urine Sodiumon 01-19-2024 Sodium (U) [Moles/Vol] 87 mmol/L Normal Not Establ. [facility] Comment on above: Order Comment: Order Date: 01/13/24 Order Info: 2955-3 - GEORGE Performed By: #### L 501.5500 #### [facility] [address] [place], [address] L501.5101on 01-15-2024 GGTP 41 IU/L Normal 0-65 [facility] Comment on above: Order Comment: Order Date: 01/13/24Order Info: [id number] - GGTP Result Comment: Perf ormed at: - [facility] [address] [id number] Associate Producer: Aquilino Gómez PhD, Phone: [phone] Performed By: #### L 501.4021, L100.0100, L500.2500 #### [facility] [address] [place], [place], [address] Comprehensive Metabolic Prof ilon 01-14-2024 Albumin [Mass/Vol] 3.9 g/dL Normal 3.2-5.0 [facility] Comment on above: Order Comment: Order Date: 01/13/24Order Info: 0786-1 - CMP Performed By: #### L 501.4021, L100.0100, L500.2500 #### [facility] [address] [place], [address] Albumin/Globulin [Mass ratio] 1.1 {ratio} Normal 0.9-2.4 [facility] Comment on above: Order Comment: Order Date: 01/13/24Order Info: 0786-1 - CMP Performed By: #### L 501.4021, L100.0100, L500.2500 #### [facility] [address] [place], [address] ALK P 90 U/L Normal 45-117 [facility] Comment on above: Order Comment: Order Date: 01/13/24Order Info: 0786-1 - CMP Performed By: #### L 501.4021, L100.0100, L500.2500 #### [facility] [address] [place], [address] ALT [Catalytic activity/Vol] 28 U/L Normal 16-61 [facility] Comment on above: Order Comment: Order Date: 01/13/24Order Info: 0786-1 - CMP Performed By: #### L 501.4021, L100.0100, L500.2500 #### [facility] [address] [place], [address] AST [Catalytic activity/Vol] 17 U/L Normal 15-37 [facility] Comment on above: Order Comment: Order Date: 01/13/24Order Info: 0786-1 - CMP Performed By: #### L 501.4021, L100.0100, L500.2500 #### [facility] [address] [place], [address] Bilirubin [Mass/Vol] 0.50 mg/dL Normal 0.20-1.00 [facility] Comment on above: Order Comment: Order Date: 01/13/24Order Info: 0786-1 - CMP Result Comment: For patients on eltrombopag therapy, use of Dimension Hadley TBIL is not recommended. Performed By: #### L 501.4021, L100.0100, L500.2500 #### [facility] [address] [place], [address] BUN/CRE 13.6 RATIO Normal 10-20 [facility] Comment on above: Order Comment: Order Date: 01/13/24Order Info: 0786-1 - CMP Performed By: #### L 501.4021, L100.0100, L500.2500 #### [facility] [address] [place], [address] CA,Total 9.8 mg/dL Normal 8.5-10.1 [facility] Comment on above: Order Comment: Order Date: 01/13/24Order Info: 0786-1 - CMP Performed By: #### L 501.4021, L100.0100, L500.2500 #### [facility] [address] [place], [address] Chloride [Moles/Vol] 100 mmol/L Normal 98-107 [facility] Comment on above: Order Comment: Order Date: 01/13/24Order Info: 0786-1 - CMP Performed By: #### L 501.4021, L100.0100, L500.2500 #### [facility] [address] [place], [address] CO2 [Moles/Vol] 26.0 mmol/L Normal 21.0-32.0 [facility] Comment on above: Order Comment: Order Date: 01/13/24Order Info: 0786-1 - CMP Performed By: #### L 501.4021, L100.0100, L500.2500 #### [facility] [address] [place], [address] Creatinine [Mass/Vol] 1.25 mg/dL Normal 0.70-1.30 [facility] Comment on above: Order Comment: Order Date: 01/13/24Order Info: 0786-1 - CMP Result Comment: The validity of the calculated GFR GFRAA in patients over 70 years has not been determined. Clinical correlation is essential. Performed By: #### L 501.4021, L100.0100, L500.2500 #### [facility] [address] [place], [address] EST GFR - AA 73 mL/min Normal >60 [facility] Comment on above: Order Comment: Order Date: 01/13/24Order Info: 0786-1 - CMP Result Comment: Afri can Cymraes GFR Calc Performed By: #### L 501.4021, L100.0100, L500.2500 #### [facility] [address] [place], [address] GAP 7 Normal 5-15 [facility] Comment on above: Order Comment: Order Date: 01/13/24Order Info: 0786-1 - CMP Performed By: #### L 501.4021, L100.0100, L500.2500 #### [facility] [address] [place], [address] GFR/1.73 sq M.predicted among non-blacks MDRD (S/P/Bld) [Vol rate/Area] 61 mL/min/{1.73_m2} Normal >60 [facility] Comment on above: Order Comment: Order Date: 01/13/24Order Info: 0786-1 - CMP Result Comment: Non- GFR Calc Performed By: #### L 501.4021, L100.0100, L500.2500 #### [facility] [address] [place], [address] Globulin (S) [Mass/Vol] 3.5 g/dL Normal 2.2-4.2 [facility] Comment on above: Order Comment: Order Date: 01/13/24Order Info: 0786-1 - CMP Performed By: #### L 501.4021, L100.0100, L500.2500 #### [facility] [address] [place], [address] Glucose [Mass/Vol] 100 mg/dL Normal 74-106 [facility] Comment on above: Order Comment: Order Date: 01/13/24Order Info: 0786-1 - CMP Result Comment: Fast ing Glucose result from 100 to 125 mg/dL suggests IMPAIRED HOMEOSTASIS per A.D.A. criteria. Performed By: #### L 501.4021, L100.0100, L500.2500 #### [facility] [address] [place], [address] Potassium [Moles/Vol] 3.9 mmol/L Normal 3.5-5.1 [facility] Comment on above: Order Comment: Order Date: 01/13/24Order Info: 0786-1 - CMP Performed By: #### L 501.4021, L100.0100, L500.2500 #### [facility] [address] [place], [address] Sodium [Moles/Vol] 133 mmol/L Low 136-145 [facility] Comment on above: Order Comment: Order Date: 01/13/24Order Info: 0786-1 - CMP Performed By: #### L 501.4021, L100.0100, L500.2500 #### [facility] [address] [place], [address] T PROT 7.4 g/dL Normal 6.4-8.2 [facility] Comment on above: Order Comment: Order Date: 01/13/24Order Info: 0786-1 - CMP Performed By: #### L 501.4021, L100.0100, L500.2500 #### [facility] [address] [place], [address] Urea nitrogen [Mass/Vol] 17 mg/dL Normal 7-18 [facility] Comment on above: Order Comment: Order Date: 01/13/24Order Info: 0786-1 - CMP Performed By: #### L 501.4021, L100.0100, L500.2500 #### [facility] [address] [place], [address] Osmolality, Serumon 01-14-20 24 OSMOLALITY,SER 289 mOsm/KG Normal 280-301 [facility] Comment on above: Order Comment: Order Date: 01/13/24Order Info: 2692-2 - OS Performed By: #### L 501.4021, L100.0100, L500.2500 #### [facility] [address] [place], [address] CNOVon 08-30-2023 [facility] Office Visit (AGGENS 3) FAHAD KIRK JR ([id number]) 1955 M Date Time Provider Department 08/30/23 [...] [facility] CNOVon 08-25-2023 [facility] Office Visit (GENSWS ) FAHAD KIRK JR ([id number]) 1955 M Date Time Provider Department 08/25/23 [...] was patient's last Mammogram screening? N/A ROSANGELA Holloway Linda Marie, MD 08/28/2023 3:26 PM Signed Fahad Kirk Jr 1955 REFERRING PHYSICIAN: No ref. provider found CHIEF COMPLAINT: New Patient and Abdominal Pain HPI: The patient is a 68 year old male presents with abnormal findings on gallbladder ultrasound. He had presented to [facility] ED with right lower rib pain. [...] mouth once (more content not included)... Normal [facility] Absolute lymphocyte countOrd ered By: Gosia Delaney on 07-06-2023 Lymphocytes Auto (Unsp spec) [#/Vol] 1.85 10*3/uL 0.83-4.51 [facility] Automated lymphocyte count a s percentage of total leukocytesOrdered By: Gosia Delaney on 07-06-2023 Lymphocytes/100 WBC Auto (Unsp spec) 27.5 % 19-41 [facility] Basophil percentageOrdered B y: Gosia Delaney on 07-06-2023 Basophils/100 WBC (Bld) 0.4 % 0-1 [facility] Bilirubin [Mass/Vol] 0.60 mg/dL 0.20-1.00 [facility] Comment on above: For patients on eltr ombopag therapy, use of Dimension [place] TBIL is not recommended. Chloride [Moles/Vol] 102 mmol/L 98-107 [facility] Eosinophils/100 WBC (Bld) 5.3 % 0-5 [facility] Glucose [Mass/Vol] 111 mg/dL 74-106 [facility] Comment on above: Fasting Glucose resu lt from 100 to 125 mg/dL suggests IMPAIRED HOMEOSTASIS per A.D.A. criteria. Hemoglobin (Bld) [Mass/Vol] 15.1 g/dL 13.0-16.5 [facility] Monocytes/100 WBC (Bld) 8.6 % 0-10 [facility] Neutrophils (Bld) [#/Vol] 3.9 10*3/uL 2.0-7.7 [facility] Neutrophils/100 WBC (Bld) 57.9 % 47-70 [facility] Potassium [Moles/Vol] 4.5 mmol/L 3.5-5.1 [facility] Protein [Mass/Vol] 7.7 g/dL 6.4-8.2 [facility] Sodium [Moles/Vol] 134 mmol/L 136-145 [facility] WBC (Bld) [#/Vol] 6.7 10*3/uL 4.4-11.0 [facility] Determination of erythrocyte mean corpuscular volume (MCV)Ordered By: Gosia Delaney on 07-06-2023 MCV (RBC) [Entitic vol] 91.6 fL 80-94 [facility] Erythrocyte distribution wid th ratioOrdered By: Gosia Delaney on 07-06-2023 Erythrocyte distribution width (RBC) [Ratio] 13.1 % 11.6-14.6 [facility] Erythrocyte distribution wid th standard deviationOrdered By: Gosia Delaney on 07-06-2023 Erythrocyte distribution width (RBC) [Entitic vol] 44.2 fL 35.1-43.9 [facility] Hematocrit Auto (Bld) [Volum e fraction]Ordered By: Gosia Delaney on 07-06-2023 Hematocrit (Bld) [Volume fraction] 46.0 % 40-54 [facility] Immature granulocytes/100 WB C Auto (Bld)Ordered By: Gosia Delaney on 07-06-2023 Immature granulocytes/100 WBC (Bld) 0.300 % 0.0-0.9 [facility] Comment on above: IG% - Immature Granu locytes (promyelocytes, myelocytes and metamyelocytes) > 1% indicates that a LEFT SHIFT is Present. Laboratory - Chemistry and C hemistry - challengeOrdered By: Gosia Delaney on 07-06-2023 Albumin/Globulin [Mass ratio] 1.1 {ratio} 0.9-2.4 [facility] ALP [Catalytic activity/Vol] 103 U/L 45-117 [facility] ALT [Catalytic activity/Vol] 45 U/L 16-61 [facility] Amylase [Catalytic activity/Vol] 92 U/L 15-85 [facility] CO2 [Moles/Vol] 28.0 mmol/L 21.0-32.0 [facility] Globulin (S) [Mass/Vol] 3.6 g/dL 2.2-4.2 [facility] Lipase [Catalytic activity/Vol] 21 U/L 13-75 [facility] Comment on above: Please note:LIPASE r evised reference range effective 22. New Lipase methodology. Expected to produce lower values than the previous assay method. NEW Reference Range: 13 - 75 U/L Urea nitrogen/Creatinine [Mass ratio] 12.9 mg/mg 10-20 [facility] - Hematology and Cell countsOrdered By: Gosia Delaney on 07-06-2023 MCH (RBC) [Entitic mass] 30.1 pg 27.0-32.0 [facility] MCHC (RBC) [Mass/Vol] 32.8 g/dL 32-36 [facility] Nucleated RBC/100 WBC (Bld) [Ratio] 0 % 0-5 [facility] Platelet mean volume (Bld) [Entitic vol] 11.0 fL 6.2-12.0 [facility] Platelets (Bld) [#/Vol] 243 10*3/uL 150-450 [facility] No Panel InformationOrdered By: Gosia Delaney on 07-06-2023 C-Reactive Protein Extended Range 6.67 mg/L 0.0-3.0 [facility] Comment on above: C-Reactive Protein ( CRP) provides useful information for thediagnosis, therapy and monitoring of inflammatory processesand associated diseases. For the evaluation of Relative Riskfor Cardiovascular Disease, a High Sensitivity CRP (HSCRP)should be ordered. Estimated GFR (MDRD) Amer 69 mL/min >60 [facility] Comment on above: GFR Calc Estimated GFR (MDRD) Non-Af Amer 57 mL/min >60 [facility] Comment on above: Non- GFR Calc RBC Auto (Bld) [#/Vol]Ordere d By: Gosia Delaney on 07-06-2023 RBC (Bld) [#/Vol] 5.02 10*6/uL 4.6-6.2 [facility] Serum or plasma calcium zac urement (mass/volume)Ordered By: Gosia Delaney on 07-06-2023 Calcium [Mass/Vol] 9.7 mg/dL 8.5-10.1 [facility] Serum or plasma creatinine m easurement (mass/volume)Ordered By: Gosia Delaney on 07-06-2023 Creatinine [Mass/Vol] 1.32 mg/dL 0.70-1.30 [facility] Comment on above: The validity of the calculated GFR & GFRAA in patients over 70 years has not been determined. Clinical correlation is essential. Serum or plasma urea nitroge n measurement (mass/volume)Ordered By: Gosia Delaney on 07-06-2023 Urea nitrogen [Mass/Vol] 17 mg/dL 7-18 [facility] Thin prep Papanicolaou smear with manual screeningOrdered By: Gosia Delaney on 07-06-2023 Thin prep Papanicolaou smear with manual screening 4.1 g/dL 3.2-5.0 [facility] Thin prep Papanicolaou smear with manual screening 21 U/L 15-37 [facility] Thin prep Papanicolaou smear with manual screening 4 5-15 [facility] Absolute lymphocyte countOrd ered By: Lionel Ocasio on 07-03-2023 Lymphocytes Auto (Unsp spec) [#/Vol] 1.38 10*3/uL 0.83-4.51 [facility] Automated lymphocyte count a s percentage of total leukocytesOrdered By: Lionel Ocasio on 07-03-2023 Lymphocytes/100 WBC Auto (Unsp spec) 19.8 % 19-41 [facility] Basophil percentageOrdered B y: Lionel Ocasio on 07-03-2023 Basophils/100 WBC (Bld) 0.4 % 0-1 [facility] Bilirubin [Mass/Vol] 0.50 mg/dL 0.20-1.00 [facility] Comment on above: For patients on eltr ombopag therapy, use of Dimension [place] TBIL is not recommended. Chloride [Moles/Vol] 103 mmol/L 98-107 [facility] Eosinophils/100 WBC (Bld) 4.6 % 0-5 [facility] Glucose [Mass/Vol] 105 mg/dL 74-106 [facility] Comment on above: Fasting Glucose resu lt from 100 to 125 mg/dL suggests IMPAIRED HOMEOSTASIS per A.D.A. criteria. Hemoglobin (Bld) [Mass/Vol] 14.4 g/dL 13.0-16.5 [facility] Monocytes/100 WBC (Bld) 7.2 % 0-10 [facility] Neutrophils (Bld) [#/Vol] 4.7 10*3/uL 2.0-7.7 [facility] Neutrophils/100 WBC (Bld) 67.7 % 47-70 [facility] Potassium [Moles/Vol] 4.1 mmol/L 3.5-5.1 [facility] Protein [Mass/Vol] 6.7 g/dL 6.4-8.2 [facility] Sodium [Moles/Vol] 135 mmol/L 136-145 [facility] WBC (Bld) [#/Vol] 7.0 10*3/uL 4.4-11.0 [facility] Determination of erythrocyte mean corpuscular volume (MCV)Ordered By: Lionel Ocasio on 07-03-2023 MCV (RBC) [Entitic vol] 91.2 fL 80-94 [facility] Direct bilirubinOrdered By: Lionel Ocasio on 07-03-2023 Bilirubin.direct [Mass/Vol] 0.21 mg/dL 0.00-0.30 [facility] Erythrocyte distribution wid th ratioOrdered By: Lionel Ocasio on 07-03-2023 Erythrocyte distribution width (RBC) [Ratio] 12.8 % 11.6-14.6 [facility] Erythrocyte distribution wid th standard deviationOrdered By: Lionel Ocasio on 07-03-2023 Erythrocyte distribution width (RBC) [Entitic vol] 42.8 fL 35.1-43.9 [facility] Hematocrit Auto (Bld) [Volum e fraction]Ordered By: Lionel Ocasio on 07-03-2023 Hematocrit (Bld) [Volume fraction] 43.4 % 40-54 [facility] Immature granulocytes/100 WB C Auto (Bld)Ordered By: Lionel Ocasio on 07-03-2023 Immature granulocytes/100 WBC (Bld) 0.300 % 0.0-0.9 [facility] Comment on above: IG% - Immature Granu locytes (promyelocytes, myelocytes and metamyelocytes) > 1% indicates that a LEFT SHIFT is Present. Laboratory - Chemistry and C hemistry - challengeOrdered By: Lionel Ocasio on 07-03-2023 ALP [Catalytic activity/Vol] 106 U/L 45-117 [facility] ALT [Catalytic activity/Vol] 94 U/L 16-61 [facility] CO2 [Moles/Vol] 28.0 mmol/L 21.0-32.0 [facility] Globulin (S) [Mass/Vol] 3.0 g/dL 2.2-4.2 [facility] Urea nitrogen/Creatinine [Mass ratio] 16.1 mg/mg 10-20 [facility] Laboratory - Hematology and Cell countsOrdered By: Lionel Ocasio on 07-03-2023 MCH (RBC) [Entitic mass] 30.3 pg 27.0-32.0 [facility] MCHC (RBC) [Mass/Vol] 33.2 g/dL 32-36 [facility] Nucleated RBC/100 WBC (Bld) [Ratio] 0 % 0-5 [facility] Platelet mean volume (Bld) [Entitic vol] 11.3 fL 6.2-12.0 [facility] Platelets (Bld) [#/Vol] 208 10*3/uL 150-450 [facility] No Panel InformationOrdered By: Lionel Ocasio on 07-03-2023 D-Dimer Quantitative (PE/DVT) 0.89 FEU/ug/m 0.27-0.49 [facility] Comment on above: D-Dimer ELEVATED (>0 .49): Additional studies and clinicalassessments are indicated to conclude diagnosis of:Deep Vein Thrombosis (DVT) or Pulmonary Embolism (PE) Estimated Creatinine Clearance Calc 45.63 ml/min [facility] Estimated GFR (MDRD) Amer 79 mL/min >60 [facility] Comment on above: GFR Calc Estimated GFR (MDRD) Non-Af Amer 65 mL/min >60 [facility] Comment on above: Non- GFR Calc Troponin I High Sensitivity 6 pg/mL 3.0-78.0 [facility] Comment on above: Please Note: New Angela t Units and Gender Specific Reference Ranges. For more information see Policy Stat Procedure [place] High Sensitivity Troponin (TNIH) and attachments. RBC Auto (Bld) [#/Vol]Ordere d By: Lionel Ocasio on 07-03-2023 RBC (Bld) [#/Vol] 4.76 10*6/uL 4.6-6.2 [facility] Serum or plasma calcium zac urement (mass/volume)Ordered By: Lionel Ocasio on 07-03-2023 Calcium [Mass/Vol] 9.1 mg/dL 8.5-10.1 [facility] Serum or plasma creatinine m easurement (mass/volume)Ordered By: Lionel Ocasio on 07-03-2023 Creatinine [Mass/Vol] 1.18 mg/dL 0.70-1.30 [facility] Comment on above: The validity of the calculated GFR & GFRAA in patients over 70 years has not been determined. Clinical correlation is essential. Serum or plasma urea nitroge n measurement (mass/volume)Ordered By: Lionel Ocasio on 07-03-2023 Urea nitrogen [Mass/Vol] 19 mg/dL 7-18 [facility] Thin prep Papanicolaou smear with manual screeningOrdered By: Lionel Ocasio on 07-03-2023 Thin prep Papanicolaou smear with manual screening 3.7 g/dL 3.2-5.0 [facility] Thin prep Papanicolaou smear with manual screening 97 U/L 15-37 [facility] Thin prep Papanicolaou smear with manual screening 4 5-15 [facility] Basophil percentageOrdered B y: Gosia Delaney on 04-12-2023 Bilirubin [Mass/Vol] 0.50 mg/dL 0.20-1.00 [facility] Comment on above: For patients on eltr ombopag therapy, use of Dimension [place] TBIL is not recommended. Chloride [Moles/Vol] 100 mmol/L 98-107 [facility] Cholesterol [Mass/Vol] 175 mg/dL <200 [facility] Comment on above: <200 mg/dL Desirable 200-240 mg/dL Borderline >240 mg/dL High Risk Glucose [Mass/Vol] 111 mg/dL 74-106 [facility] Comment on above: Fasting Glucose resu lt from 100 to 125 mg/dL suggests IMPAIRED HOMEOSTASIS per A.D.A. criteria. Potassium [Moles/Vol] 4.1 mmol/L 3.5-5.1 [facility] Protein [Mass/Vol] 7.3 g/dL 6.4-8.2 [facility] Sodium [Moles/Vol] 135 mmol/L 136-145 [facility] Triglyceride [Mass/Vol] 263 mg/dL <199 [facility] Comment on above: The drugs N-Acetylcy steine and Metamizole may falsely depress this assay.Serum Triglycerides Reference Interval Normal <150 mg/dL Borderline high 150 - 199 mg/dL High 200 - 499 mg/dL Very High > or = 500 mg/dL Cholesterol in LDL Direct as say [Mass/Vol]Ordered By: Gosia Delaney on 04-12-2023 Cholesterol in LDL [Mass/Vol] 99 mg/dL 0-99 [facility] Comment on above: Performed at: [address] [id number] Director: Aquilino Gómez PhD, Phone: [phone] Laboratory - Chemistry and C hemistry - challengeOrdered By: Gosia Delaney on 04-12-2023 ALP [Catalytic activity/Vol] 82 U/L 45-117 [facility] ALT [Catalytic activity/Vol] 37 U/L 16-61 [facility] Amylase [Catalytic activity/Vol] 361 U/L 15-85 [facility] CO2 [Moles/Vol] 24.0 mmol/L 21.0-32.0 [facility] Globulin (S) [Mass/Vol] 3.7 g/dL 2.2-4.2 [facility] Urea nitrogen/Creatinine [Mass ratio] 10.4 mg/mg 10-20 [facility] Laboratory - Miscellaneous t estsOrdered By: Gosia Delaney on 04-12-2023 Service comment (Unsp spec) [Interp] TNP [facility] Comment on above: Test not performed No Panel InformationOrdered By: Gosia Delaney on 04-12-2023 Estimated GFR (MDRD) Amer 68 mL/min >60 [facility] Comment on above: GFR Calc Estimated GFR (MDRD) Non-Af Amer 56 mL/min >60 [facility] Comment on above: Non- GFR Calc Serum or plasma albumin zac urement (mass/volume)Ordered By: Gosia Delaney on 04-12-2023 Albumin [Mass/Vol] 3.6 g/dL 3.2-5.0 [facility] Serum or plasma albumin/glob ulin mass ratioOrdered By: Gosia Delaney on 04-12-2023 Albumin/Globulin [Mass ratio] 1.0 {ratio} 0.9-2.4 [facility] Serum or plasma calcium zac urement (mass/volume)Ordered By: Gosia Delaney on 04-12-2023 Calcium [Mass/Vol] 9.4 mg/dL 8.5-10.1 [facility] Serum or plasma cholesterol in HDL measurement (mass/volume)Ordered By: Gosia Delaney on 04-12-2023 Cholesterol in HDL [Mass/Vol] 47 mg/dL >40 [facility] Comment on above: The drugs N-Acetylcy steine and Metamizole may falsely depress this assay. Reference Range HDL <40 mg/dL Low HDL Cholesterol HDL >or= 60 mg/dL High HDL Cholesterol Serum or plasma cholesterol in VLDL measurement (mass/volume)Ordered By: Gosia Delaney on 04-12-2023 Cholesterol in VLDL [Mass/Vol] 53 mg/dL 5-40 [facility] Serum or plasma creatinine m easurement (mass/volume)Ordered By: Gosia Delaney on 04-12-2023 Creatinine [Mass/Vol] 1.34 mg/dL 0.70-1.30 [facility] Comment on above: The validity of the calculated GFR & GFRAA in patients over 70 years has not been determined. Clinical correlation is essential. Serum or plasma low density lipoprotein (LDL) cholesterol measurement (mass/volume)Ordered By: Gosia Delaney on 04-12-2023 Cholesterol in LDL [Mass/Vol] 75 mg/dL 0-130 [facility] Serum or plasma urea nitroge n measurement (mass/volume)Ordered By: Gosia Delaney on 04-12-2023 Urea nitrogen [Mass/Vol] 14 mg/dL 7-18 [facility] Thin prep Papanicolaou smear with manual screeningOrdered By: Gosia Delaney on 04-12-2023 Thin prep Papanicolaou smear with manual screening 24 U/L 15-37 [facility] Thin prep Papanicolaou smear with manual screening 11 5-15 [facility] Basophil percentageOrdered B y: Gosia Delaney on 04-05-2023 Bilirubin [Mass/Vol] 0.60 mg/dL 0.20-1.00 [facility] Comment on above: For patients on eltr ombopag therapy, use of Dimension [place] TBIL is not recommended. Chloride [Moles/Vol] 102 mmol/L 98-107 [facility] Glucose [Mass/Vol] 105 mg/dL 74-106 [facility] Comment on above: Fasting Glucose resu lt from 100 to 125 mg/dL suggests IMPAIRED HOMEOSTASIS per A.D.A. criteria. Potassium [Moles/Vol] 4.3 mmol/L 3.5-5.1 [facility] Protein [Mass/Vol] 7.3 g/dL 6.4-8.2 [facility] Sodium [Moles/Vol] 137 mmol/L 136-145 [facility] Laboratory - Chemistry and C hemistry - challengeOrdered By: Gosia Delaney on 04-05-2023 ALP [Catalytic activity/Vol] 122 U/L 45-117 [facility] ALT [Catalytic activity/Vol] 113 U/L 16-61 [facility] CO2 [Moles/Vol] 28.0 mmol/L 21.0-32.0 [facility] Globulin (S) [Mass/Vol] 3.9 g/dL 2.2-4.2 [facility] Urea nitrogen/Creatinine [Mass ratio] 6.9 mg/mg 10-20 [facility] No Panel InformationOrdered By: Gosia Delaney on 04-05-2023 Estimated GFR (MDRD) Amer 70 mL/min >60 [facility] Comment on above: GFR Calc Estimated GFR (MDRD) Non-Af Amer 58 mL/min >60 [facility] Comment on above: Non- GFR Calc Serum or plasma albumin zac urement (mass/volume)Ordered By: Gosia Delaney on 04-05-2023 Albumin [Mass/Vol] 3.4 g/dL 3.2-5.0 [facility] Serum or plasma albumin/glob ulin mass ratioOrdered By: Gosia Delaney on 04-05-2023 Albumin/Globulin [Mass ratio] 0.9 {ratio} 0.9-2.4 [facility] Serum or plasma calcium zac urement (mass/volume)Ordered By: Gosia Delaney on 04-05-2023 Calcium [Mass/Vol] 9.1 mg/dL 8.5-10.1 [facility] Serum or plasma creatinine m easurement (mass/volume)Ordered By: Gosia Delaney on 04-05-2023 Creatinine [Mass/Vol] 1.31 mg/dL 0.70-1.30 [facility] Comment on above: The validity of the calculated GFR & GFRAA in patients over 70 years has not been determined. Clinical correlation is essential. Serum or plasma urea nitroge n measurement (mass/volume)Ordered By: Gosia Delaney on 04-05-2023 Urea nitrogen [Mass/Vol] 9 mg/dL 7-18 [facility] Thin prep Papanicolaou smear with manual screeningOrdered By: Gosia Delaney on 04-05-2023 Thin prep Papanicolaou smear with manual screening 45 U/L 15-37 [facility] Thin prep Papanicolaou smear with manual screening 7 5-15 [facility] Absolute lymphocyte countOrd ered By: Gosia Delaney on 03-29-2023 Lymphocytes Auto (Unsp spec) [#/Vol] 1.47 10*3/uL 0.83-4.51 [facility] Basophil percentageOrdered B y: Gosia Delaney on 03-29-2023 Basophils/100 WBC (Bld) 0.5 % 0-1 [facility] Bilirubin [Mass/Vol] 1.90 mg/dL 0.20-1.00 [facility] Comment on above: For patients on eltr ombopag therapy, use of Dimension [place] TBIL is not recommended. Chloride [Moles/Vol] 95 mmol/L 98-107 [facility] Eosinophils/100 WBC (Bld) 1.1 % 0-5 [facility] Glucose [Mass/Vol] 129 mg/dL 74-106 [facility] Comment on above: Fasting Glucose resu lt greater than or equal to 126 mg/dL suggests DIABETES MELLITUS per A.D.A. criteria. Neutrophils (Bld) [#/Vol] 4.4 10*3/uL 2.0-7.7 [facility] Neutrophils/100 WBC (Bld) 69.4 % 47-70 [facility] Potassium [Moles/Vol] 4.1 mmol/L 3.5-5.1 [facility] Comment on above: Slight Hemolysis, Re sult may be falsely increased. Protein [Mass/Vol] 6.9 g/dL 6.4-8.2 [facility] Sodium [Moles/Vol] 129 mmol/L 136-145 [facility] WBC (Bld) [#/Vol] 6.3 10*3/uL 4.4-11.0 [facility] Blood erythrocytes count (nu mber/volume)Ordered By: Gosia Delaney on 03-29-2023 RBC (Bld) [#/Vol] 4.55 10*6/uL 4.6-6.2 [facility] Blood hemoglobin measurement (mass/volume)Ordered By: Gosia Delaney on 03-29-2023 Hemoglobin (Bld) [Mass/Vol] 14.7 g/dL 13.0-16.5 [facility] Blood lymphocytes/100 leukoc ytesOrdered By: Gosia Delaney on 03-29-2023 Lymphocytes/100 WBC (Bld) 23.2 % 19-41 [facility] Blood monocytes/100 leukocyt esOrdered By: Gosia Delaney on 03-29-2023 Monocytes/100 WBC (Bld) 5.5 % 0-10 [facility] Blood platelet mean volumeOr dered By: Gosia Delaney on 03-29-2023 Platelet mean volume (Bld) [Entitic vol] 11.2 fL 6.2-12.0 [facility] Determination of erythrocyte mean corpuscular volume (MCV)Ordered By: Gosia Delaney on 03-29-2023 MCV (RBC) [Entitic vol] 94.3 fL 80-94 [facility] Erythrocyte sedimentation ra teOrdered By: Gosia Delaney on 03-29-2023 ESR (Bld) [Velocity] mm/h 0-20 [facility] Hematocrit Auto (Bld) [Volum e fraction]Ordered By: Gosia Delaney on 03-29-2023 Hematocrit (Bld) [Volume fraction] 42.9 % 40-54 [facility] Laboratory - Chemistry and C hemistry - challengeOrdered By: Gosia Delaney on 03-29-2023 ALP [Catalytic activity/Vol] 181 U/L 45-117 [facility] ALT [Catalytic activity/Vol] 491 U/L 16-61 [facility] CO2 [Moles/Vol] 21.0 mmol/L 21.0-32.0 [facility] Globulin (S) [Mass/Vol] 3.2 g/dL 2.2-4.2 [facility] Lipase [Catalytic activity/Vol] 30 U/L 13-75 [facility] Comment on above: Please note:LIPASE r evised reference range effective 22. New Lipase methodology. Expected to produce lower values than the previous assay method. NEW Reference Range: 13 - 75 U/L Magnesium [Mass/Vol] 2.2 mg/dL 1.6-2.6 [facility] Comment on above: Slight Hemolysis, Re sult may be falsely increased. Urea nitrogen/Creatinine [Mass ratio] 13.5 mg/mg 10- [facility] Laboratory - Hematology and Cell countsOrdered By: Gosia Delaney on 03-29-2023 Erythrocyte distribution width (RBC) [Entitic vol] 47.6 fL 35.1-43.9 [facility] Erythrocyte distribution width (RBC) [Ratio] 13.6 % 11.6-14.6 [facility] Immature granulocytes/100 WBC (Bld) 0.300 % 0.0-0.9 [facility] Comment on above: IG% - Immature Granu locytes (promyelocytes, myelocytes and metamyelocytes) > 1% indicates that a LEFT SHIFT is Present. MCH (RBC) [Entitic mass] 32.3 pg 27.0-32.0 [facility] Nucleated RBC/100 WBC (Bld) [Ratio] 0 % 0-5 [facility] MCHC Auto (RBC) [Mass/Vol]Or dered By: Gosia Delaney on 03-29-2023 MCHC (RBC) [Mass/Vol] 34.3 g/dL 32-36 [facility] No Panel InformationOrdered By: Gosia Delaney on 03-29-2023 Estimated GFR (MDRD) Amer 61 mL/min >60 [facility] Comment on above: GFR Calc Estimated GFR (MDRD) Non-Af Amer 50 mL/min >60 [facility] Comment on above: Non- GFR Calc Platelets bldOrdered By: Julia Delaney on 03-29-2023 Platelets (Bld) [#/Vol] 160 10*3/uL 150-450 [facility] Serum or plasma C reactive p rotein measurement (mass/volume)Ordered By: Gosia Delaney on 03-29-2023 CRP [Mass/Vol] mg/L 0.0-3.0 [facility] Comment on above: C-Reactive Protein ( CRP) provides useful information for thediagnosis, therapy and monitoring of inflammatory processesand associated diseases. For the evaluation of Relative Riskfor Cardiovascular Disease, a High Sensitivity CRP (HSCRP)should be ordered. Serum or plasma albumin zac urement (mass/volume)Ordered By: Gosia Delaney on 03-29-2023 Albumin [Mass/Vol] 3.7 g/dL 3.2-5.0 [facility] Serum or plasma albumin/glob ulin mass ratioOrdered By: Gosia Delaney on 03-29-2023 Albumin/Globulin [Mass ratio] 1.2 {ratio} 0.9-2.4 [facility] Serum or plasma calcium zac urement (mass/volume)Ordered By: Gosia Delaney on 03-29-2023 Calcium [Mass/Vol] 8.1 mg/dL 8.5-10.1 [facility] Serum or plasma creatinine m easurement (mass/volume)Ordered By: Gosia Delaney on 03-29-2023 Creatinine [Mass/Vol] 1.48 mg/dL 0.70-1.30 [facility] Comment on above: The validity of the calculated GFR & GFRAA in patients over 70 years has not been determined. Clinical correlation is essential. Serum or plasma urea nitroge n measurement (mass/volume)Ordered By: Gosia Delaney on 03-29-2023 Urea nitrogen [Mass/Vol] 20 mg/dL 7-18 [facility] Thin prep Papanicolaou smear with manual screeningOrdered By: Gosia Delaney on 03-29-2023 Thin prep Papanicolaou smear with manual screening 757 U/L 15- [facility] Comment on above: Slight Hemolysis, Re sult may be falsely increased. Thin prep Papanicolaou smear with manual screening 13 5-15 [facility] Basophil percentageOrdered B y: Gosia Delaney on 12-04-2022 Bilirubin [Mass/Vol] 0.50 mg/dL 0.20-1.00 [facility] Comment on above: For patients on eltr ombopag therapy, use of Dimension [place] TBIL is not recommended. Chloride [Moles/Vol] 103 mmol/L 98-107 [facility] Cholesterol [Mass/Vol] 167 mg/dL <200 [facility] Comment on above: <200 mg/dL Desirable 200-240 mg/dL Borderline >240 mg/dL High Risk Glucose [Mass/Vol] 85 mg/dL 74-106 [facility] Potassium [Moles/Vol] 3.7 mmol/L 3.5-5.1 [facility] Protein [Mass/Vol] 7.3 g/dL 6.4-8.2 [facility] Sodium [Moles/Vol] 138 mmol/L 136-145 [facility] Triglyceride [Mass/Vol] 335 mg/dL <199 [facility] Comment on above: The drugs N-Acetylcy steine and Metamizole may falsely depress this assay.Serum Triglycerides Reference Interval Normal <150 mg/dL Borderline high 150 - 199 mg/dL High 200 - 499 mg/dL Very High > or = 500 mg/dL Laboratory - Chemistry and C hemistry - challengeOrdered By: Gosia Delaney on 12-04-2022 ALP [Catalytic activity/Vol] 109 U/L 45-117 [facility] ALT [Catalytic activity/Vol] 46 U/L 16-61 [facility] CO2 [Moles/Vol] 27.0 mmol/L 21.0-32.0 [facility] Globulin (S) [Mass/Vol] 3.6 g/dL 2.2-4.2 [facility] Urea nitrogen/Creatinine [Mass ratio] 7.0 mg/mg 10-20 [facility] No Panel InformationOrdered By: Gosia Delaney on 12-04-2022 Estimated GFR (MDRD) Amer 113 mL/min >60 [facility] Comment on above: GFR Calc Estimated GFR (MDRD) Non-Af Amer 93 mL/min >60 [facility] Comment on above: Non- GFR Calc Prostate Specific Antigen Screen 0.46 ng/mL 0.00-4.00 [facility] Comment on above: This test was perfor med using the TPSA assay method for theEventBoardSensitive Object chemistry system. Values obtained with differentassay methods cannot be used interchangably.When changing PSA assays in the course of monitoring apatient, additional sequential testing should be carriedout to confirm baseline values. Thyroid Stimulating Hormone (TSH) 1.60 uIU/mL 0.358-3.74 [facility] Urine Microalbumin/Creatinine Ratio 15.5 mg/g CRE <30 [facility] Serum or plasma albumin zac urement (mass/volume)Ordered By: Gosia Delaney on 12-04-2022 Albumin [Mass/Vol] 3.7 g/dL 3.2-5.0 [facility] Serum or plasma albumin/glob ulin mass ratioOrdered By: Gosia Delaney on 12-04-2022 Albumin/Globulin [Mass ratio] 1.0 {ratio} 0.9-2.4 [facility] Serum or plasma calcium zac urement (mass/volume)Ordered By: Gosia Delaney on 12-04-2022 Calcium [Mass/Vol] 8.7 mg/dL 8.5-10.1 [facility] Serum or plasma cholesterol in HDL measurement (mass/volume)Ordered By: Gosia Delaney on 12-04-2022 Cholesterol in HDL [Mass/Vol] 55 mg/dL >40 [facility] Comment on above: The drugs N-Acetylcy steine and Metamizole may falsely depress this assay. Reference Range HDL <40 mg/dL Low HDL Cholesterol HDL >or= 60 mg/dL High HDL Cholesterol Serum or plasma cholesterol in VLDL measurement (mass/volume)Ordered By: Gosia Delaney on 12-04-2022 Cholesterol in VLDL [Mass/Vol] 67 mg/dL 5-40 [facility] Serum or plasma creatinine m easurement (mass/volume)Ordered By: Gosia Delaney on 12-04-2022 Creatinine [Mass/Vol] 0.86 mg/dL 0.70-1.30 [facility] Comment on above: The validity of the calculated GFR & GFRAA in patients over 70 years has not been determined. Clinical correlation is essential. Serum or plasma low density lipoprotein (LDL) cholesterol measurement (mass/volume)Ordered By: Gosia Delaney on 12-04-2022 Cholesterol in LDL [Mass/Vol] 45 mg/dL 0-130 [facility] Serum or plasma urea nitroge n measurement (mass/volume)Ordered By: Gosia Delaney on 12-04-2022 Urea nitrogen [Mass/Vol] 6 mg/dL 7-18 [facility] Thin prep Papanicolaou smear with manual screeningOrdered By: Gosia Delaney on 12-04-2022 Thin prep Papanicolaou smear with manual screening 43 U/L 15-37 [facility] Thin prep Papanicolaou smear with manual screening 8 5-15 [facility] Thin prep Papanicolaou smear with manual screening 11.3 mg/L NO RANGE EST. [facility] Urine creatinine measurement (mass/volume)Ordered By: Gosia Delaney on 12-04-2022 Creatinine (U) [Mass/Vol] 73.10 mg/dL NO RANGE EST. [facility] Absolute lymphocyte countOrd ered By: Dr. Delaney on 06-04-2022 Lymphocytes Auto (Unsp spec) [#/Vol] 1.97 10*3/uL 0.83-4.51 [facility] Basophil percentageOrdered B y: Dr. Delaney on 06-04-2022 Basophils/100 WBC (Bld) 0.8 % 0-1 [facility] Bilirubin [Mass/Vol] 0.60 mg/dL 0.20-1.00 [facility] Comment on above: For patients on eltr ombopag therapy, use of Dimension [place] TBIL is not recommended. Chloride [Moles/Vol] 101 mmol/L 98-107 [facility] Cholesterol [Mass/Vol] 248 mg/dL <200 [facility] Comment on above: <200 mg/dL Desirable 200-240 mg/dL Borderline >240 mg/dL High Risk Eosinophils/100 WBC (Bld) 6.3 % 0-5 [facility] Glucose [Mass/Vol] 106 mg/dL 74-106 [facility] Comment on above: Fasting Glucose resu lt from 100 to 125 mg/dL suggests IMPAIRED HOMEOSTASIS per A.D.A. criteria. Neutrophils (Bld) [#/Vol] 4.0 10*3/uL 2.0-7.7 [facility] Neutrophils/100 WBC (Bld) 56.1 % 47-70 [facility] Potassium [Moles/Vol] 4.2 mmol/L 3.5-5.1 [facility] Protein [Mass/Vol] 7.2 g/dL 6.4-8.2 [facility] Sodium [Moles/Vol] 139 mmol/L 136-145 [facility] Triglyceride [Mass/Vol] 543 mg/dL <199 [facility] Comment on above: The drugs N-Acetylcy steine and Metamizole may falsely depress this assay. TRIGLYCERIDE IS GREATER THAN 400 mg/dL. LDL RESULT IS INVALID AND WILL NOT BE REPORTED.Serum Triglycerides Reference Interval Normal <150 mg/dL Borderline high 150 - 199 mg/dL High 200 - 499 mg/dL Very High > or = 500 mg/dL WBC (Bld) [#/Vol] 7.1 10*3/uL 4.4-11.0 [facility] Blood erythrocytes count (nu mber/volume)Ordered By: Dr. Delaney on 06-04-2022 RBC (Bld) [#/Vol] 4.77 10*6/uL 4.6-6.2 [facility] Blood hemoglobin measurement (mass/volume)Ordered By: Dr. Delaney on 06-04-2022 Hemoglobin (Bld) [Mass/Vol] 15.3 g/dL 13.0-16.5 [facility] Blood lymphocytes/100 leukoc ytesOrdered By: Dr. Delaney on 06-04-2022 Lymphocytes/100 WBC (Bld) 27.7 % 19-41 [facility] Blood monocytes/100 leukocyt esOrdered By: Dr. Delaney on 06-04-2022 Monocytes/100 WBC (Bld) 8.7 % 0-10 [facility] Blood platelet mean volumeOr dered By: Dr. Delaney on 06-04-2022 Platelet mean volume (Bld) [Entitic vol] 11.3 fL 6.2-12.0 [facility] Determination of erythrocyte mean corpuscular volume (MCV)Ordered By: Dr. Delaney on 06-04-2022 MCV (RBC) [Entitic vol] 95.8 fL 80-94 [facility] Hematocrit Auto (Bld) [Volum e fraction]Ordered By: Dr. Delaney on 06-04-2022 Hematocrit (Bld) [Volume fraction] 45.7 % 40-54 [facility] Laboratory - Chemistry and C hemistry - challengeOrdered By: Dr. Delaney on 06-04-2022 ALP [Catalytic activity/Vol] 86 U/L 45-117 [facility] ALT [Catalytic activity/Vol] 47 U/L 16-61 [facility] Amylase [Catalytic activity/Vol] 257 U/L 15-85 [facility] CO2 [Moles/Vol] 28.0 mmol/L 21.0-32.0 [facility] Globulin (S) [Mass/Vol] 3.3 g/dL 2.2-4.2 [facility] Urea nitrogen/Creatinine [Mass ratio] 10.2 mg/mg 10-20 [facility] Laboratory - Hematology and Cell countsOrdered By: Dr. Delaney on 06-04-2022 Erythrocyte distribution width (RBC) [Entitic vol] 44.5 fL 35.1-43.9 [facility] Erythrocyte distribution width (RBC) [Ratio] 12.6 % 11.6-14.6 [facility] Immature granulocytes/100 WBC (Bld) 0.400 % 0.0-0.9 [facility] Comment on above: IG% - Immature Granu locytes (promyelocytes, myelocytes and metamyelocytes) > 1% indicates that a LEFT SHIFT is Present. MCH (RBC) [Entitic mass] 32.1 pg 27.0-32.0 [facility] Nucleated RBC/100 WBC (Bld) [Ratio] 0 % 0-5 [facility] MCHC Auto (RBC) [Mass/Vol]Or dered By: Dr. Delaney on 06-04-2022 MCHC (RBC) [Mass/Vol] 33.5 g/dL 32-36 [facility] No Panel InformationOrdered By: Dr. Delaney on 06-04-2022 Estimated GFR (MDRD) Amer 127 mL/min >60 [facility] Comment on above: GFR Calc Estimated GFR (MDRD) Non-Af Amer 105 mL/min >60 [facility] Comment on above: Non- GFR Calc Thyroid Stimulating Hormone (TSH) 2.34 uIU/mL 0.358-3.74 [facility] Urine Microalbumin/Creatinine Ratio 184.4 mg/g CRE <30 [facility] Platelets bldOrdered By: Dr. Delaney on 06-04-2022 Platelets (Bld) [#/Vol] 224 10*3/uL 150-450 [facility] Serum or plasma albumin zac urement (mass/volume)Ordered By: Dr. Delaney on 06-04-2022 Albumin [Mass/Vol] 3.9 g/dL 3.2-5.0 [facility] Serum or plasma albumin/glob ulin mass ratioOrdered By: Dr. Delaney on 06-04-2022 Albumin/Globulin [Mass ratio] 1.2 {ratio} 0.9-2.4 [facility] Serum or plasma calcium zac urement (mass/volume)Ordered By: Dr. Delaney on 06-04-2022 Calcium [Mass/Vol] 9.1 mg/dL 8.5-10.1 [facility] Serum or plasma cholesterol in HDL measurement (mass/volume)Ordered By: Dr. Delaney on 06-04-2022 Cholesterol in HDL [Mass/Vol] 49 mg/dL >40 [facility] Comment on above: The drugs N-Acetylcy steine and Metamizole may falsely depress this assay. Reference Range HDL <40 mg/dL Low HDL Cholesterol HDL >or= 60 mg/dL High HDL Cholesterol Serum or plasma cholesterol in VLDL measurement (mass/volume)Ordered By: Dr. Delaney on 06-04-2022 Cholesterol in VLDL [Mass/Vol] [facility] Comment on above: Test not performed Serum or plasma creatinine m easurement (mass/volume)Ordered By: Dr. Delaney on 06-04-2022 Creatinine [Mass/Vol] 0.78 mg/dL 0.70-1.30 [facility] Comment on above: The validity of the calculated GFR & GFRAA in patients over 70 years has not been determined. Clinical correlation is essential. Serum or plasma low density lipoprotein (LDL) cholesterol measurement (mass/volume)Ordered By: Dr. Delaney on 06-04-2022 Cholesterol in LDL [Mass/Vol] [facility] Comment on above: Test not performed Serum or plasma urea nitroge n measurement (mass/volume)Ordered By: Dr. Delaney on 06-04-2022 Urea nitrogen [Mass/Vol] 8 mg/dL 7-18 [facility] Thin prep Papanicolaou smear with manual screeningOrdered By: Dr. Delaney on 06-04-2022 Thin prep Papanicolaou smear with manual screening 37 U/L 15-37 [facility] Thin prep Papanicolaou smear with manual screening 10 5-15 [facility] Thin prep Papanicolaou smear with manual screening 69.7 mg/L NO RANGE EST. [facility] Urine creatinine measurement (mass/volume)Ordered By: Dr. Delaney on 06-04-2022 Creatinine (U) [Mass/Vol] 37.80 mg/dL NO RANGE EST. [facility] Vital Signs Date Time Vital Sign Value Performing Clinician Facility 12-07-2024 13:18-0400 Body height 157.5 cm Roberto Ramon MD Work Phone: [facility] 12-07-2024 13:18-0400 Body mass index (BMI) [Ratio] 20.12 kg/m2 Roberto Ramon MD Work Phone: [facility] 12-07-2024 13:18-0400 Body weight 49.9 kg Roberto Ramon MD Work Phone: [facility] 12-07-2024 13:18-0400 Diastolic blood pressure 82 mm[Hg] Roberto Ramon MD Work Phone: [facility] 12-07-2024 13:18-0400 Heart rate 62 /min Roberto Ramon MD Work Phone: [facility] 12-07-2024 13:18-0400 Respiratory rate 18 /min Roberto Ramon MD Work Phone: [facility] 12-07-2024 13:18-0400 SaO2% (BldA) [Mass fraction] 100 % Roberto Ramon MD Work Phone: [facility] 12-07-2024 13:18-0400 Systolic blood pressure 126 mm[Hg] Roberto Ramon MD Work Phone: [facility] 11-20-2024 19:01-0400 Body temperature 98.1 [degF] Dr. Gosia Delaney MD Work Phone: [facility] 11-20-2024 19:01-0400 Diastolic blood pressure 81 mm[Hg] Dr. Gosia Delaney MD Work Phone: [facility] 11-20-2024 19:01-0400 Heart rate 86 /min Dr. Gosia Delaney MD Work Phone: [facility] 11-20-2024 19:01-0400 Respiratory rate 16 /min Dr. Gosia Delaney MD Work Phone: [facility] 11-20-2024 19:01-0400 SaO2% (BldA) [Mass fraction] 94 % Dr. Gosia Delaney MD Work Phone: [facility] 11-20-2024 19:01-0400 Systolic blood pressure 172 mm[Hg] Dr. Gosia Delaney MD Work Phone: 3(696)361-026093 [place] [address] 11-20-2024 14:59-0400 Body height 157.[address] Gosia Delaney MD Work Phone: 5(667)000-926023 [place] [address] 11-20-2024 14:59-0400 Body weight 54.[address] Gosia Delaney MD Work Phone: 0(584)321-281623 [place] [address] 11-20-2024 13:56-0400 Inhaled oxygen flow rate 2 L/min Dr. Gosia Delaney MD Work Phone: 0(885)950-462723 [place] [address] 11-20-2024 08:44-0400 Body mass index (BMI) [Ratio] 21.9 kg/m2 Dr. Gosia Delaney MD Work Phone: 3(830)763-535023 [place] [address] 11-20-2024 00:28-0400 Body temperature 98 [degF] Dr. Gosia Delaney MD Work Phone: 8(194)978-982923 [place] [address] 11-20-2024 00:28-0400 Diastolic blood pressure 79 mm[Hg] Dr. Gosia Delaney MD Work Phone: 3(501)876-478023 [place] [address] 11-20-2024 00:28-0400 Heart rate 57 /min Dr. Gosia Delaney MD Work Phone: 1(450)633-644223 [place] [address] 11-20-2024 00:28-0400 Respiratory rate 18 /min Dr. Gosia Delaney MD Work Phone: 6(423)608-193123 [place] [address] 11-20-2024 00:28-0400 SaO2% (BldA) [Mass fraction] 96 % Dr. Gosia Delaney MD Work Phone: 1(440)032-579023 [place] [address] 11-20-2024 00:28-0400 Systolic blood pressure 169 mm[Hg] Dr. Gosia Delaney MD Work Phone: 3(615)523-842723 [place] [address] 11-19-2024 19:54-0400 Body height 160.[address] Gosia Delaney MD Work Phone: 3(371)621-844523 [place] [address] 11-19-2024 19:54-0400 Body mass index (BMI) [Ratio] 21.9 kg/m2 Dr. Gosia Delaney MD Work Phone: [facility] 11-19-2024 19:54-0400 Body weight [address] Gosia Delaney MD Work Phone: [facility] 11-08-2024 07:56-0400 Body height 157.[address] Gosia Delaney MD Work Phone: [facility] 11-08-2024 07:56-0400 Body mass index (BMI) [Ratio] 21.4 kg/m2 Dr. Gosia Delaney MD Work Phone: [facility] 11-08-2024 07:56-0400 Body temperature 97.8 [degF] Dr. Gosia Delaney MD Work Phone: [facility] 11-08-2024 07:56-0400 Body weight 53.[address] Gosia Delaney MD Work Phone: [facility] 11-08-2024 07:56-0400 Diastolic blood pressure 64 mm[Hg] Dr. Gosia Delaney MD Work Phone: [facility] 11-08-2024 07:56-0400 Heart rate 59 /min Dr. Gosia Delaney MD Work Phone: [facility] 11-08-2024 07:56-0400 Respiratory rate 15 /min Dr. Gosia Delaney MD Work Phone: [facility] 11-08-2024 07:56-0400 SaO2% (BldA) [Mass fraction] 98 % Dr. Gosia Delaney MD Work Phone: [facility] 11-08-2024 07:56-0400 Systolic blood pressure 144 mm[Hg] Dr. Gosia Delaney MD Work Phone: [facility] 08-30-2023 13:51-0400 Body height 160 cm Mary Carmen Lara MD Work Phone: [facility] 08-30-2023 13:51-0400 Body mass index (BMI) [Ratio] 20.9 kg/m2 Mary Carmen Lara MD Work Phone: [facility] 08-30-2023 13:51-0400 Body weight 53.52 kg Mary Carmen Lara MD Work Phone: [facility] 08-30-2023 13:51-0400 Diastolic blood pressure 90 mm[Hg] Mary Carmen Lara MD Work Phone: [facility] 08-30-2023 13:51-0400 Systolic blood pressure 183 mm[Hg] Mary Carmen Lara MD Work Phone: [facility] 08-25-2023 14:46-0400 Body height 160 cm Jessy Stafford MD Work Phone: [facility] 08-25-2023 14:46-0400 Body temperature 98.29 [degF] Jessy Stafford MD Work Phone: [facility] 08-25-2023 14:46-0400 Body weight 54.16 kg Jessy Stafford MD Work Phone: [facility] 08-25-2023 14:46-0400 Diastolic blood pressure 68 mm[Hg] Jessy Stafford MD Work Phone: [facility] 08-25-2023 14:46-0400 Heart rate 77 /min Jessy Stafford MD Work Phone: [facility] 08-25-2023 14:46-0400 SaO2% (BldA) [Mass fraction] 98 % Jessy Stafford MD Work Phone: [facility] 08-25-2023 14:46-0400 Systolic blood pressure 154 mm[Hg] Jessy Stafford MD Work Phone: [facility] 07-03-2023 14:35-0500 Body temperature 97.9 [degF] Dr. Gosia Delaney Work Phone: [facility] 07-03-2023 14:35-0500 Diastolic blood pressure 66 mm[Hg] Dr. Gosia Delaney Work Phone: [facility] 07-03-2023 14:35-0500 Heart rate 56 /min Dr. Gosia Delaney Work Phone: [facility] 07-03-2023 14:35-0500 Respiratory rate 14 /min Dr. Gosia Delaney Work Phone: [facility] 07-03-2023 14:35-0500 SaO2% (BldA) [Mass fraction] 98 % Dr. Gosia Delaney Work Phone: [facility] 07-03-2023 14:35-0500 Systolic blood pressure 171 mm[Hg] Dr. Gosia Delaney Work Phone: [facility] 07-03-2023 11:50-0500 Body height 157.[address] Gosia Delaney Work Phone: [facility] 07-03-2023 11:50-0500 Body mass index (BMI) [Ratio] 22 kg/m2 Dr. Gosia Delaney Work Phone: [facility] 07-03-2023 11:50-0500 Body weight 54.[address] Gosia Delaney Work Phone: [facility] 04-19-2023 07:54-0500 Body height 157.[address] Gosia Delaney Work Phone: [facility] 04-19-2023 07:54-0500 Body mass index (BMI) [Ratio] 21.1 kg/m2 Dr. Gosia Delaney Work Phone: [facility] 04-19-2023 07:54-0500 Body temperature 97.8 [degF] Dr. Gosia Delaney Work Phone: [facility] 04-19-2023 07:54-0500 Body weight 52.[address] Gosia Delaney Work Phone: [facility] 04-19-2023 07:54-0500 Diastolic blood pressure 80 mm[Hg] Dr. Gosia Delaney Work Phone: [facility] 04-19-2023 07:54-0500 Heart rate 80 /min Dr. Gosia Delaney Work Phone: [facility] 04-19-2023 07:54-0500 Respiratory rate 17 /min Dr. Gosia Delaney Work Phone: [facility] 04-19-2023 07:54-0500 SaO2% (BldA) [Mass fraction] 99 % Dr. Gosia Delaney Work Phone: [facility] 04-19-2023 07:54-0500 Systolic blood pressure 108 mm[Hg] Dr. Gosia Delaney Work Phone: [facility] 11-02-2022 08:00-0400 Body height 157.[address] Gosia Delaney Work Phone: [facility] 11-02-2022 08:00-0400 Body mass index (BMI) [Ratio] 22 kg/m2 Dr. Gosia Delaney Work Phone: [facility] 11-02-2022 08:00-0400 Body temperature 98 [degF] Dr. Gosia Delaney Work Phone: [facility] 11-02-2022 08:00-0400 Body weight 54.[address] Gosia Delaney Work Phone: [facility] 11-02-2022 08:00-0400 Diastolic blood pressure 68 mm[Hg] Dr. Gosia Delaney Work Phone: [facility] 11-02-2022 08:00-0400 Heart rate 72 /min Dr. Gosia Delaney Work Phone: [facility] 11-02-2022 08:00-0400 Respiratory rate 16 /min Dr. Gosia Delaney Work Phone: [facility] 11-02-2022 08:00-0400 SaO2% (BldA) [Mass fraction] 99 % Dr. Gosia Delaney Work Phone: [facility] 11-02-2022 08:00-0400 Systolic blood pressure 120 mm[Hg] Dr. Gosia Delaney Work Phone: [facility] Encounters Encounter Date Encounter Type Care Provider Facility Start: 01-05-2025 ambulatory Varinder Paez [employer] Facil ity:[facility] Start: 01-01-2025 End: 01-01-2025 ambulatory UNKNOWN PROVIDER Facility:[id number] Start: 12-25-2024 End: 12-25-[address] Gosia Delaney MD Work Phone: -Cardiovascular Services Start: 12-25-2024 End: 12-25-[address] Tuan Foster MD -Cardiovascular Services Work Phone: Start: 12-25-2024 End: 12-25-2024 ambulatory Gosia Delaney Facility:[facility] Start: 12-21-2024 End: 12-21-[address] Gosia Delaney MD Work Phone: -[facility] [employer] Start: 12-21-2024 End: 12-21-[address] Gos[facility] Start: 12-21-2024 End: 12-21-2024 ambulatory Gosia Delaney Facility:[facility] Start: 12-07-2024 End: 12-07-2024 Patient encounter procedure Roberto Ramon MD Work Phone: [facility] Comment on above: Acute cholecystitis with chronic cholecystitis (Primary Dx) Start: 12-07-2024 End: 12-07-2024 ambulatory ROBERTO RAMON Facility:[id number] Start: 12-06-2024 End: 12-06-[address] Gosia Delaney MD Work Phone: -[facility] [place] Start: 12-06-2024 End: 12-06-[address] Gosia Delaney MD -[facility] Work Phone: Start: 12-06-2024 End: 12-06-2024 ambulatory Gosia Delaney Facility:[facility] Start: 12-04-2024 End: 12-04-[address] Gosia Delaney MD Work Phone: -[facility] [employer] [facility] Start: 12-04-2024 End: 12-04-[address] Gosia Delaney MD -Laboratory [place] [facility] Start: 12-04-2024 End: 12-04-2024 ambulatory Gosia Delaney Facility:[facility] Start: 11-21-2024 Non-patient / Non-visit Dr. Kassandra Samano MD -[facility] Start: 11-20-2024 End: 11-23-2024 Evaluation and management of inpatient ADRIANA TERAN Facility:[id number] Start: 11-20-2024 Evaluation and manag ement of inpatient Dr. Yakov Samano MD -Medical Surgical 3 Work Phone: Start: 11-19-2024 Non-patient / Non-visit Dr. Kassandra Samano MD -[facility] Start: 11-19-2024 ambulatory Yakov Muniz lity:[facility] Start: 11-19-2024 End: 11-20-2024 Evaluation and management of inpatient Dr. Yakov Samano MD -Medical Surgical 3 Work Phone: Start: 11-08-2024 End: 11-08-[address] Tuan Foster MD -[facility] Work Phone: Start: 11-08-2024 End: 11-08-[address] Gosia Delaney MD Work Phone: -[facility] Start: 07-12-2024 End: 07-12-[address] Gosia Delaney MD Work Phone: [facility] Work Phone: Start: 07-12-2024 End: 07-12-[address] Tina Sutherland DO -Laboratory, Phy Office 3rd Flr Start: 07-12-2024 End: 07-12-2024 ambulatory Tina Sutherland Facility:[facility] Start: 06-29-2024 End: 06-29-[address] Gosia Delaney MD -Pulmonary Services/Neurology Work Phone: Start: 06-29-2024 ambulatory Franck Shelby Facility:[facility] Start: 06-29-2024 End: 06-29-2024 ambulatory Gosia Delaney Facility:[facility] Start: 06-21-2024 End: 06-21-[address] Gosia Delaney MD -[facility] Start: 06-21-2024 End: 06-21-2024 ambulatory Gosia Delaney Facility:[facility] Start: 01-22-2024 ambulatory Gosia Delaney Facility:[facility] Start: 01-19-2024 End: 01-19-2024 ambulatory Gosia Delaney Facility:[facility] Start: 01-17-2024 End: 01-17-2024 ambulatory Gosia Delaney Facility:[facility] Start: 01-14-2024 End: 01-14-2024 ambulatory Gosia Delaney Facility:[facility] Start: 08-30-2023 End: 08-30-2023 ambulatory MARY CARMEN LARA Facility:[facility] Start: 08-30-2023 End: 08-30-2023 Patient encounter procedure Mary Carmen Lara MD Work Phone: [facility] Comment on above: Symptomatic cholelit hiasis (Primary Dx) Start: 08-25-2023 End: 08-25-2023 ambulatory JESSY STAFFORD Facility:[facility] Start: 08-25-2023 End: 08-25-2023 Patient encounter procedure Jessy Stafford MD Work Phone: General Surgery Comment on above: Calculus of gallblad shelby without cholecystitis without obstruction (Primary Dx) Start: 07-06-2023 End: 07-06-[address] Gosia Delaney Work Phone: [facility] Work Phone: Start: 07-06-2023 End: 07-06-[address] Gosia Delaney Work Phone: [facility] Start: 07-03-2023 End: 07-03-2023 Emergency department patient visit Dr. Gosia Delaney Work Phone: [facility]-Emergency Department Work Phone: Start: 06-07-2023 Non-patient / Non-visit Dr. Joni Delaney Work Phone: [facility] Start: 06-07-2023 End: 06-07-[address] Gosia Delaney Work Phone: [facility] Work Phone: Start: 06-07-2023 End: 06-07-[address] Gosia Delaney Work Phone: [facility]-Cardiovascul ar Services Work Phone: Start: 04-19-2023 End: 04-19-[address] Gosia Delaney Work Phone: [facility] Work Phone: Start: 04-12-2023 End: 04-12-2023 ambulatory [facility] Work Phone: Start: 04-12-2023 End: 04-12-2023 Patient encounter procedure [facility] Work Phone: Start: 04-05-2023 End: 04-05-2023 ambulatory [facility] Work Phone: Start: 04-05-2023 End: 04-05-2023 Patient encounter procedure [facility] Work Phone: Start: 03-29-2023 End: 03-29-2023 ambulatory [facility] Work Phone: Start: 03-29-2023 End: 03-29-2023 Patient encounter procedure [facility] Work Phone: Start: 01-05-2023 End: 01-05-[address] Gosia Delaney Work Phone: [facility] Work Phone: Start: 01-05-2023 End: 01-05-[address] Gosia Delaney Work Phone: [facility] Work Phone: Start: 01-02-2023 End: 01-02-[address] [facility] Work [facility] Start: 12-04-2022 End: 12-04-[address] Gosia Delaney Work Phone: [facility] Work Phone: Start: 12-04-2022 End: 12-04-[address] Gosia Delaney Work Phone: [facility] Start: 11-03-2022 Non-patient / Non-visit Dr. Joni Delaney Work Phone: [facility] Start: 11-03-2022 End: 11-03-[address] Gosia Delaney Work Phone: [facility] Work Phone: Start: 11-03-2022 End: 11-03-[address] Gosia Delaney Work Phone: [facility]-Cardiovascul ar Services Work Phone: Start: 11-02-2022 End: 11-02-[address] Gosia Delaney Work Phone: [facility] Work Phone: Start: 06-04-2022 End: 06-04-[address] Gosia Delaney Work Phone: [facility] Work Phone: Start: 06-04-2022 End: 06-04-[address] Gosia Delaney Work Phone: [facility] Start: 03-03-2022 Non-patient / Non-visit Dr. Joni Delaney Work Phone: [facility] Start: 03-03-2022 End: 03-03-[address] Gosia Delaney Work Phone: [facility]-Cardiovascul ar Services Procedures Date Procedure Procedure Detail Performing Clinician Start: 12-21-2024 Prostate specific an tigen measurement Dr. Gosia Delaney MD Work Phone: Comment on above: This test was perfor med using the [employer] tPSA method. Measured values of a patient sample can vary depending on the testing procedure used. PSA values determined on patient samples by different testing procedures cannot be used interchangeably. If there is a change in PSA assays while monitoring therapy, sequential testing should be performed to confirm baseline values. Start: 12-04-2024 Osmolality measureme nt, serum Dr. Gosia Delaney MD Work Phone: Start: 11-20-[address] Gosia [...] DTaP,Tdap,Td Vaccine (2 - Td or Tdap) [facility] Start: 11-24-2027 Diabetes Screening Diabetes Screening [facility] Start: 12-17-2025 Screening for malignant neoplasm of colon [facility] Start: 01-08-2025 Influenza vaccination Influenza Vaccine (#1) [facility] Start: 12-22-2024 End: 12-22-2024 Admission to same day surgery center 12/22/2024 10:00 AM EDT - 12/22/2024 11:00 AM EDT Surgery MR INTERVENTIONAL RADIOLOGY [address] [place] [address] Geremias Marti, DO [address] [place] [address] cholangram MR INTERVENTIONAL RADIOLOGY Comment on above: cholangram Start: 12-22-2024 End: 12-22-2024 Njx cholangio prq w/img gid rs&i existing access PERC IMAGE GUIDED CHOLANGIOGRAPHY W/RAD S&I, EXISTING ACCESS Acute cholecystitis with chronic cholecystitis 12/22/2024 10:00 AM EDT MR IR Start: 12-22-2024 Subsequent hospital visit by physician 12/22/2024 10:00 AM EDT Hospital Encounter MR INTERVENTIONAL RADIOLOGY [address] [place] [address] Geremias Marti, DO [address] [place] [address] Acute cholecystitis with chronic cholecystitis [K81.2] MR INTERVENTIONAL RADIOLOGY Comment on above: Acute cholecystitis with chronic cholecy stitis [K81.2] Start: 11-20-2024 [facility] Start: 11-20-2024 Biopsy/Inj or Needle Placement Biopsy/Inj or Needle Placement [facility] Start: 11-20-2024 [facility] Start: 11-20-2024 Catheterization of vein [facility] Start: 11-20-2024 Oxygen therapy [facility] Start: 11-20-2024 Vital signs measurements [facility] Start: 11-20-2024 Partial thromboplastin time, activated [facility] Start: 11-20-2024 Prothrombin time [facility] Start: 11-20-2024 Triacylglycerol lipase measurement [facility] Start: 11-20-2024 Following clinical pathway protocol [facility] Start: 11-20-2024 Hospital admission, emergency, from emergency room, medical nature [facility] Start: 11-20-2024 Patient discharge [facility] Start: 11-19-2024 Care regimes management [facility] Start: 11-19-2024 Notification of physician [facility] Start: 11-19-2024 Ambulation without limitation [facility] Start: 11-19-2024 Following clinical pathway protocol [facility] Start: 11-19-2024 Vital signs measurements [facility] Start: 11-19-2024 End: 11-19-2024 [facility] Start: 11-19-2024 Admission procedure [facility] Start: 11-19-2024 Ultrasonography of abdomen Abdomen Limited [facility] Start: 11-19-2024 US Abdomen limited [facility] Start: 11-19-2024 End: 11-19-2024 [facility] Start: 05-10-2024 Advance Directive Discussion Advance Directive Discussion [facility] Start: 07-03-2023 [facility] Start: 07-03-2023 [facility] Start: 05-10-2023 Advance Directive Discussion Advance Directive Discussion [facility] Start: 05-10-2023 Behavioral Health Screening Behavioral Health Screening [facility] Start: 2013 RSV Vaccine (1 - 1-dose 60+ series) RSV Vaccine (1 - 1-dose 60+ series) [facility] Start: 2013 RSV Vaccine (1 - Risk 60-74 years 1-dose series) RSV Vaccine (1 - Risk 60-74 years 1-dose series) [facility] Start: 08-04-2003 Shingrix Vaccine (1 of 2) Shingrix Vaccine (1 of 2) [facility] Start: 1998 Diabetes Screening Diabetes Screening [facility] Start: 1998 Screening for malignant neoplasm of colon [facility] Start: 1988 Lipid panel Lipid Screening [facility] Start: 08-04-1971 Anxiety Screening Anxiety Screening [facility] Start: 08-04-1971 Depression Screening Depression Screening [facility] Start: 08-04-1971 Hepatitis C screening Hepatitis C Screening [facility] Start: 1953 Abdominal aortic aneurysm screening Abdominal Aortic Aneurysm Screening [facility] Alanine aminotransfe rase [Enzymatic activity/volume] in Serum or Plasma [facility] Albumin [Mass/volume ] in Serum or Plasma [facility] Alkaline phosphatase [Enzymatic activity/volume] in Serum or Plasma [facility] Anion gap in Serum o r Plasma [facility] Bilirubin, total measurement [facility] BUN/Creatinine ratio [facility] Calcium [Mass/volume ] in Serum or Plasma [facility] Carbon dioxide, tota l [Moles/volume] in Central venous blood [facility] Creatinine [Mass/vol ume] in Serum or Plasma [facility] Erythrocyte mean corpuscular volume determination [facility] Glucose [Mass/volume ] in Serum or Plasma [facility] Hematocrit [Volume Fraction] of Blood [facility] Hemoglobin [Mass/vol ume] in Blood [facility] INR in Blood by Coagulation assay [facility] Leukocytes [#/volume ] in Blood [facility] Mean corpuscular hemoglobin concentration determination [facility] Mean corpuscular hemoglobin determination [facility] Measurement of renal function [facility] Neutrophil count [facility] Neutrophil percent differential count [facility] Patient Education [facility] Work Phone: Patient referral [facility] Work Phone: Platelets [#/volume] in Blood [facility] Potassium measurement [facility] Red blood cell count [facility] Red cell distributio n width determination [facility] RF Biliary ducts and Gallbladder Views W contrast via T-tube IR CHOLANGIOGRAM THRU TUBE Radiology Routine Acute cholecystitis with chronic cholecystitis Ordered: 12/07/2024 [facility] Work Phone: Comment on above: Ordered: 12/07/2024 Serum chloride measurement [facility] Sodium measurement [facility] Total protein measurement [facility] Troponin T.cardiac [Mass/volume] in Serum or Plasma by High sensitivity method [facility] Urea nitrogen [Mass/volume] in Serum or Plasma [facility] US Carotid arteries [facility] US Carotid arteries [facility] Immunizations Immunization Date Immunization Notes Care Provider [facility] 02-01-2024 influenza, seasonal, injectable, preservative free Dr. Gosia Delaney MD Work Phone: [facility] 02-01-2024 Pfizer Covid-19 (Comirnaty) Dr. Gosia Delaney MD Work Phone: [facility] 02-01-2024 influenza virus vacc ine, unspecified formulation Roberto Ramon MD Work Phone: [facility] 03-15-2023 Covid (Spikevax) Dr. Gosia ugalde MD Work Phone: [facility] 02-05-2023 influenza, injectabl e, quadrivalent, preservative free Dr. Gosia Delaney MD Work Phone: [facility] 12-04-2022 Pneumococcal Vaccine PCV20 (Prevnar 20) Dr. Gosia Delaney MD Work Phone: [facility] 12-04-2022 tetanus toxoid, redu uziel diphtheria toxoid, and acellular pertussis vaccine, adsorbed Dr. Gosia Delaney MD Work Phone: [facility] 02-10-2022 Covid Moderna Bivale nt Booster Dr. Gosia Delaney MD Work Phone: [facility] 02-06-2022 influenza, injectabl e, quadrivalent, preservative free Dr. Gosia Delaney MD Work Phone: [facility] 08-22-2021 Covid (Moderna) Dr. Gosia ramirez MD Work Phone: [facility] 03-27-2021 Covid (Moderna) Dr. Gosia ramirez MD Work Phone: [facility] 02-07-2021 influenza, injectabl e, quadrivalent, preservative free Dr. Gosia Delaney MD Work Phone: [facility] 08-07-2020 Covid (Moderna) Dr. Gosia ramirez MD Work Phone: [facility] 07-10-2020 Covid (Moderna) Dr. Gosia ramirez MD Work Phone: [facility] 02-02-2020 influenza, injectabl e, quadrivalent, preservative free Dr. Gosia Delaney MD Work Phone: [facility] 02-24-2019 influenza, injectabl e, quadrivalent, preservative free Dr. Gosia Delaney MD Work Phone: [facility] 09-13-2018 pneumococcal polysaccharide vaccine, [address] Gosia Delaney MD Work Phone: [facility] 02-26-2017 influenza, injectabl e, quadrivalent, preservative free Dr. Gosia Delaney MD Work Phone: [facility] 08-11-2016 pneumococcal conjuga te vaccine, [address] Gosia Delaney MD Work Phone: [facility] 11-18-2012 pneumococcal polysaccharide vaccine, [address] Gosia Delaney MD Work Phone: [facility] Payers Date Payer Category Payer Self-pay [id number] [facility] JUANY SAEED DICARE SUPPLEMENT [id number] 2018 Medicare [id number] 2018 Unknown J[employer]ANY [place] DICARE SUPPLEMENT [id number] 2018-Present [phone] [address] [place] [address] Indnity [id number] 2018 Medicare [id number] 2016 Unknown [facility] [id number] 2013 Unknown [id number] Unknown [facility] [id number] Unknown [id number]. 462 Unknown [id number] 2.16.840.1.052656.3.579.2. 462 Unknown [id number] 2.16.840.1.537626.3.579.2. 462 Unknown [id number] 2.16.840.1.454419.3.579.2. 462 Unknown [id number] 2.16.840.1.005554.3.579.2. 462 Unknown [id number] 2.16.840.1.089682.3.579.2. 462 Unknown [id number] 2.16.840.1.839276.3.579.2. 462 Unknown [id number] 2.16.840.1.379797.3.579.2. 462 Unknown [id number] 2.16.840.1.779075.3.579.2. 462 Unknown [id number] 2.16.840.1.788636.3.579.2. 462 Unknown [id number] 2.16.840.1.519079.3.579.2. 462 Unknown [id number] 2.16.840.1.483391.3.579.2. 462 Unknown [id number] 2.16.840.1.946123.3.579.2. 462 Unknown [id number] 2.16.840.1.085830.3.579.2. 462 Unknown [id number] 2.16.840.1.732122.3.579.2. 462 Unknown [id number] 2.16.840.1.500107.3.579.2. 462 Unknown [id number] 2..840.1.847302.3.579.2. 462 Social History Date Type Detail Facility Start: 02-02-2022 End: 07-03-2023 Tobacco smoking status WAIS Unknown if ever smoked [facility] Start: 1955 Sex Assigned At Male [facility] Start: 08-25-2023 End: 11-20-2024 Tobacco smoking status WAIS Smokes tobacco daily [facility] History of tobacco use Cigarette Smoker C [facility] Start: 08-25-2023 End: 11-22-2024 Cigarettes smoked current (pack per day) - Reported 0.8 [facility] Start: 08-25-2023 End: 08-30-2023 Tobacco use and exposure Smokeless tobacco non-user [facility] Start: 08-25-2023 End: 11-21-2024 Alcohol intake Current drinker of alcohol (finding) [facility] Start: 08-25-2023 End: 11-22-2024 Tobacco use panel [facility] National Score (1-10 0), lower number is lower risk 47 [facility] Start: 08-25-2023 Alcohol Comment occasional [facility] Start: 1955 Sex Assigned At Not on file C [facility] Start: 07-26-2024 Sex Male (finding) [facility] Has the electric, [employer], oil, or water company threatened to shut off services in your home in past 12Mo No [facility] (I/We) worried whederian er (my/our) food would run out before (I/we) got money to buy more. Never true [facility] Functional Status Date Assessment Result Facility 11-23-2024 Are you deaf, or do you have serious difficulty hearing No 11/23/2024 1:40 PM Rg Wyman RN No [facility] 11-23-2024 Are you blind, or do you have serious difficulty seeing, even when wearing glasses No 11/23/2024 1:40 PM EDT Rg Daigle RN No [facility] 11-23-2024 Do you have serious difficulty walking or climbing stairs No 11/23/2024 1:40 PM EDT Rg Daigle RN No [facility] 11-23-2024 Do you have difficul ty dressing or bathing No 11/23/2024 1:40 PM EDT Rg Daigle RN No [facility] 11-23-2024 Because of a physica l, mental, or emotional condition, do you have difficulty doing errands alone such as visiting a physician's office or shopping No 11/23/2024 1:40 PM EDT Rg Daigle RN No [facility] 11-20-2024 Functional status Bedrest [facility] Work Phone: Mental Status Date Assessment Result Facility 11-23-2024 Because of a physica l, mental, or emotional condition, do you have serious difficulty concentrating, remembering, or making decisions No 11/23/2024 1:40 PM EDT Rg Daigle RN No [facility] 11-20-2024 Cognitive function Unable to Comprehend [facility] Work Phone: 11-20-2024 Cognitive function Appropriate;Cooperativ e [facility] Work Phone: 11-19-2024 Cognitive function Level Of Cons ciousness Awake;Alert;Appropriate [facility] Work Phone: 07-03-2023 Cognitive function Awake;Alert;A ppropriate;Fol lows Commands [facility] Work Phone: Clinical Notes 07-03-2023 to 12-07-2024 Roberto Ramon MD - 12/07/2024 1:43 PM EDT Note Date & Type Note Facility 12-07-2024 Note HNO ID: [id number] Author: ROBERTO RAMON MD Service: ? Author Type: Physician Type: Progress Notes Filed: 12/07/2024 14:04 Note Text: [facility] MEDICAL [facility] GENERAL SURGERY [address] [facility] [address] Fahad Kirk 1955 December 07, 2024 Office Visit-New Patient Visit Consultation requested by Dr. Delaney for an opinion regarding cholecystitis. My final recommendations will be communicated back to the requesting physician by way of shared Medical record or letter to requesting physician via [place] mail. CC: New Patient (Gallbladder issues) History of Present Illness: Patient is a 69-year-old man who was recently admitted for cholecystitis. He was a transfer from [place]. We were not told that the patient was combative during initial cholecystostomy tube placement. He was transferred up here. He was very confused at the time. Now he seems much more lucid. No issues with the cholecystostomy tube. I did review the op note at the time tube was placed. An outpatient cholangiogram was ordered but was not scheduled. He is here to discuss potential gallbladder removal. PAST MEDICAL HISTORY Diagnosis Date Carotid atherosclerosis [...] use: Yes Comment: occasional Drug use: Never REVIEW OF SYSTEMS: EYES/ENT:Denies blurring or double vision, ear aches, hearing loss or ringing, nose bleeds, dental problems and sore throat/hoarseness. CV: Denies swelling of feet/ankle and pain with walking GI:Denies abdominal pain, nausea, vomiting, diarrhea, constipation, blood in BM's, indigestion/heartburn, dysphagia and odynophagia. HEME: Denies slow to heal, anemia, bleeding/bruising and swollen glands. MS:Denies cold extremities. SKIN/BREAST:Denies rash/itching, breast pain, breast lump, nipple discharge, nipple bleeding and breast enlarged. The review of systems is negative for General, Resp, Derm, Neur, Psych, Endo and Current Outpatient Medications Medication Sig Dispense Refill sodium chloride 0.9 %, flush, (BD POSIFLUSH) syringe Inject 10 mL intravenously every 48 hours. 150 mL 0 albuterol HFA (PROVENTIL HFA, VENTOLIN HFA) 90 mcg/actuation inhaler Inhale 8 puffs as instructed every 6 hours as needed for wheezing/shortness of breath. levothyroxine (SYNTHROID) 25 mcg tablet Take 25 mcg by mouth daily before breakfast. propranolol ER (INDERAL LA) 60 mg 24 hr capsule Take 60 mg by mouth once daily. Telmisartan 20 mg tablet Take 10 mg by mouth once daily. INCRUSE ELLIPTA 62.5 mcg/actuation inhaler Inhale 1 Puff as instructed once daily. atorvastatin (LIPITOR) 40 mg tablet Take 1 tablet by mouth every afternoon. MULTIVITAMIN ORAL Take by mouth once daily. ascorbic acid (VITAMIN C ORAL) Take by mouth once daily. LOW-DOSE ASPIRIN ORAL Take by mouth once daily. potassium citrate ER (UROCIT-K) 10 mEq (1,080 mg) Take 1,080 mg by mouth once daily. No current facility-administered medications for this visit. ALLERGIES No Known Allergies PHYSICAL EXAM: BP 126/82 Pulse 62 Resp 18 Ht 5' 2 (1.58m) Wt 110 lb (49.9kg) SpO2 100% BMI 20.11 kg/(m2). GENERAL: Alert, no distress, cooperative SKIN: Skin color, texture, turgor normal. No rashes or lesions. LUNGS: Lungs clear to auscultation, Good diaphragmatic excursion CARDIAC: Normal S1 and S2; no rubs, murmurs, or gallops ABDOMEN: Soft, nondistended. Cholecystostomy tube EXTREMITIES: Extremities normal, no deformities, edema, clubbing or skin discoloration. Good capillary refill., No ulcers NEURO: Cranial nerves II-XII intact The remainder of the physical exam is noncontributory. IMPRESSION AND RECOMMENDATIONS ASSESSMENT/PLAN: 1. Acute cholecystitis with chronic cholecystitis - ICD9: 575.12, ICD10: K81.2 Will plan for an outpatient cholangiogram prior to cholecystectomy. I discussed this with the patient and his . Patient appears much much less confused than he did in the hospital. Will need to get medical clearance from his PCP for removal of the gallbladder. We gave them a bottle of saline and several wrap sterile syringes to continue the flushes. - IR CHOLANGIOGRAM THRU TUBE Roberto Braga (more content not included)... [facility] 12-07-2024 History of Present illness Narrative [facility] MEDICAL OFFICE [facility] GENERAL SURGERY [address] [address] Fahad Kirk Jr 1955 December 07, 2024 Office Visit-New Patient Visit Consultation requested by Dr. Delaney for an opinion regarding cholecystitis. My final recommendations will be communicated back to the requesting physician by way of shared Medical record or letter to requesting physician via [place] mail. CC: New Patient (Gallbladder issues) History of Present Illness: Patient is a 69-year-old man who was recently admitted for cholecystitis. He was a transfer from [place]. We were not told that the patient was combative during initial cholecystostomy tube placement. He was transferred up here. He was very confused at the time. Now he seems much more lucid. No issues with the cholecystostomy tube. I did review the op note at the time tube was placed. An outpatient cholangiogram was ordered but was not scheduled. He is here to discuss potential gallbladder removal. PAST MEDICAL HISTORY Diagnosis Date Carotid atherosclerosis [...] use: Yes Comment: occasional Drug use: Never REVIEW OF SYSTEMS: EYES/ENT:Denies blurring or double vision, ear aches, hearing loss or ringing, nose bleeds, dental problems and sore throat/hoarseness. CV: Denies swelling of feet/ankle and pain with walking GI:Denies abdominal pain, nausea, vomiting, diarrhea, constipation, blood in BM's, indigestion/heartburn, dysphagia and odynophagia. HEME: Denies slow to heal, anemia, bleeding/bruising and swollen glands. MS:Denies cold extremities. SKIN/BREAST:Denies rash/itching, breast pain, breast lump, nipple discharge, nipple bleeding and breast enlarged. The review of systems is negative for General, Resp, Derm, Neur, Psych, Endo and Current Outpatient Medications Medication Sig Dispense Refill sodium chloride 0.9 %, flush, (BD POSIFLUSH) syringe Inject 10 mL intravenously every 48 hours. 150 mL 0 albuterol HFA (PROVENTIL HFA, VENTOLIN HFA) 90 mcg/actuation inhaler Inhale 8 puffs as instructed every 6 hours as needed for wheezing/shortness of breath. levothyroxine (SYNTHROID) 25 mcg tablet Take 25 mcg by mouth daily before breakfast. propranolol ER (INDERAL LA) 60 mg 24 hr capsule Take 60 mg by mouth once daily. Telmisartan 20 mg tablet Take 10 mg by mouth once daily. INCRUSE ELLIPTA 62.5 mcg/actuation inhaler Inhale 1 Puff as instructed once daily. atorvastatin (LIPITOR) 40 mg tablet Take 1 tablet by mouth every afternoon. MULTIVITAMIN ORAL Take by mouth once daily. ascorbic acid (VITAMIN C ORAL) Take by mouth once daily. LOW-DOSE ASPIRIN ORAL Take by mouth once daily. potassium citrate ER (UROCIT-K) 10 mEq (1,080 mg) Take 1,080 mg by mouth once daily. No current facility-administered medications for this visit. ALLERGIES No Known Allergies PHYSICAL EXAM: BP 126/82 Pulse 62 Resp 18 Ht 5' 2 (1.58m) Wt 110 lb (49.9kg) SpO2 100% BMI 20.11 kg/(m^2). GENERAL: Alert, no distress, cooperative SKIN: Skin color, texture, turgor normal. No rashes or lesions. LUNGS: Lungs clear to auscultation, Good diaphragmatic excursion CARDIAC: Normal S1 and S2; no rubs, murmurs, or gallops ABDOMEN: Soft, nondistended. Cholecystostomy tube EXTREMITIES: Extremities normal, no deformities, edema, clubbing or skin discoloration. Good capillary refill., No ulcers NEURO: Cranial nerves II-XII intact The remainder of the physical exam is noncontributory. IMPRESSION & RECOMMENDATIONS ASSESSMENT/PLAN: 1. Acute cholecystitis with chronic cholecystitis - ICD9: 575.12, ICD10: K81.2 Will plan for an outpatient cholangiogram prior to cholecystectomy. I discussed this with the patient and his . Patient appears much much less confused than he did in the hospital. Will need to get medical clearance from his PCP for removal of the gallbladder. We gave them a bottle of saline and several wrap sterile syringes to continue the flushes. - IR CHOLANGIOGRAM THRU TUBE Roberto Ramon MD Medical Decision Making: Problems: Moderate: New problem with uncertain prognosis Data: Unique test result(s) reviewed: 1 Risk: Moderate: Moderate risk from testing/treatment Medical Decision Making Level: 4 - Moderate Roberto Ramon MD Please Note: This office note has been created using [employer], a speech recognition software program, and may contain errors including punctuation, grammar, spelling, gender, and inappropriate words or phrases that pertain to the system. documented in this encounter [facility] 11-23-2024 Note HNO ID: [id number] Author: JUSTIN VILLAGOMEZ LSW Service: Care Management Author Type: Child Care Development Specialist Type: Care Mgt Progress Note Filed: 11/23/2024 [...] pt's drain care and she is declining [facility] services No additional needs noted and pt and spouse are in agreement with discharge plan and date SIGNATURE: YOVANY Walker PATIENT NAME: Fahad Kirk DATE: November 23, 2024 TIME: 3:[address] [facility] 11-23-2024 Note HNO ID: [id number] Author: KERWIN AGUILAR DO Service: Hospital Medicine Author Type: Physician Type: Progress Notes Filed: 11/23/2024 12:22 Note Text: Documentation Query Please clarify the Diagnosis associated with clinical indicators Metabolic Encephalopathy This document will become part of the patient's medical record. [facility] 11-23-2024 Note HNO ID: [id number] Author: KERWIN AGUILAR DO Service: Hospital Medicine Author Type: Physician Type: Progress Notes Filed: 11/23/2024 12:22 Note Text: Documentation Query Please clarify sepsis diagnosis Sepsis Ruled In This document will become part of the patient's medical record. [facility] 11-23-2024 Note HNO ID: [id number] Author: ROBERTO RAMON MD Service: General Surgery [...] Will sign off, please call with questions. [facility] 11-22-2024 Note HNO ID: [id number] Author: KERWIN AGUILAR DO Service: Hospital Medicine [...] PLAN: Cholecystitis Patient initially taken to the [facility] ED for abdominal pain CT abdomen showed a hydropic gallbladder containing radiodense stones with marked wall thickening and pericholecystic fluid in addition to inflammatory stranding Follow-up ultrasound showed distended gallbladder with cholelithiasis, wall thickening, and pericholecystic fluid Cholecystostomy tube placed there but pulled out by patient Patient transferred here to [facility] surgery is following New cholecystostomy tube placed yesterday in IR Continue parenteral antibiotic therapy via IV Zosyn 3.375 g every 6 hours Continue IV morphine 2 mg every 4 PRN for pain Encephalopathy vs. EtOH withdrawal vs. Dementia Patient confused at the [facility] and p (more content not included)... [facility] 11-22-2024 Note HNO ID: [id number] Author: JUSTIN VILLAGOMEZ LSW Service: Care Management Author Type: Child Care Development Specialist Type: Care Mgt Initial Assessment Filed: 11/22/2024 11:12 Note Text: CARE MANAGEMENT: ASSESSMENT AND DISCHARGE PLAN SERVICE DATE: November 22, 2024 SERVICE TIME: 1055 PCP: Gosia Delaney MD Primary Contact: Extended Emergency Contact Information Primary Emergency Contact: Rocio Kirk Address: [address] [place] [address] Mobile Relation: Spouse Admission Status: Inpatient Insurance Provider: MEDICARE A AND B Discharge Planning requested by: Department Practice Potential Transition Plans Home, To Be Determined Advance Directives Current Advance Directive: Health Care Power of Personalization Specialist Current Living Arrangements and Support Lives with: [...] Patient's Other Post-Acute Care Goal(s): less confusion [place] of Choice Explained: [place] of Choice Given: No Reason Not Given: [...] were you homeless or living in a senior living (including now)?: No Utilities In the past 12 months has the [employer]), gas, oil, or water [employer] threatened to shut off services in your [...] DATE: November 22, 2024 TIME: 10:[address] [facility] 11-21-2024 Note HNO ID: [id number] Author: KERWIN AGUILAR DO Service: Hospital Medicine [...] PLAN: Cholecystitis Patient initially taken to the [facility] ED for abdominal pain CT abdomen showed a hydropic gallbladder containing radiodense stones with marked wall thickening and pericholecystic fluid in addition to inflammatory stranding Follow-up ultrasound showed distended gallbladder with cholelithiasis, wall thickening, and pericholecystic fluid Cholecystostomy tube placed there but pulled out by patient Patient transferred here to [facility] surgery is following New cholecystostomy tube placed today in IR Continue parenteral antibiotic therapy via IV Zosyn 3.375 g every 6 hours Continue IV fluids via normal saline but will de-escalate to 75 cc/hour Continue IV morphine 2 mg every 4 PRN for pain Encephalopathy vs. EtOH withdrawal vs. (more content not included)... [facility] 11-21-2024 Note [facility] Medical Records Department [address] [place] [address] Discharge Summary 11/21/24 1414 MR#: [id number] Acct: [id number] Name: FAHAD KIRK Rep #: [id number] : 1955 69 From: Yakov Samano MD PCP: Dr. Gosia Delaney MD Status:DIS IN Location: [facility] [id number] Providers Date of Admission: 11/19/24 Primary Care [...] for the morning. Yakov Samano MD Pager: [facility] [address] [place] [address], [address] [place] [address] Office: Medications at Discharge Home Medications amlodipine [...] tablet 500 mg PO DAILY 08/05/21 omega 7-pby-wrx-fish oil 300 mg-1,000 mg capsule,delayed release (Fish [...] mg tablet 500 mg PO DAILY omega 5-fvh-air-fish oil [Fish Oil] 300-1,000 mg capsule,delayed release(DR/EC) [...] (Reason: Wheezing) lev (more content not included)... [facility] 11-21-2024 Note HNO ID: [id number] Author: PAULO GOODWIN APRN.CHILDREN'S MINISTRY DIRECTOR Service: ? Author Type: Nurse Hydrate Thickener Operator Type: Anesthesia Procedure Notes Filed: 11/21/2024 12:52 Note Text: ANESTHESIOLOGY PROCEDURE NOTE Airway General Information Procedure Start Time/Medication Administration: 11/21/2024 12:43 PM Procedure End Time: 11/21/2024 12:43 PM Patient location during procedure: OR Timeout Performed Pre-procedure: timeout performed Consent Obtained: Yes Patient identity confirmed: arm band and patient Staffing Anesthesiologist: Garland Yancey DO CHILDREN'S MINISTRY DIRECTOR: Paulo Goodwin APRN.CHILDREN'S MINISTRY DIRECTOR Performed by: EVE Indications and Patient Condition Indications for airway management: anesthesia Preoxygenated: yes anesthesia circuit Patient position: sniffing Method: asleep Final Airway Details Final airway type: supraglottic airway Number of attempts at approach: 1 Final Supraglottic Airway: i-gel Size 4 Seal Adequate: yes SIGNATURE: Paulo Allen Dear, BOX CUTTER.CHILDREN'S MINISTRY DIRECTOR PATIENT NAME: Fahad iKrk Jr DATE: November 21, 2024 TIME: 12:51 PM CSN: [id number] [facility] 11-20-2024 Radiology Diagnostic study note [facility] Imaging Services [address] [place], [place] [address] Abscess/Fistula/Sinus Tract MR#: [id number] Acct: [id number] Name: FAHAD KIRK Rep #: [id number] : 1955 M 69 From: Reginaldo Alarcon MD PCP: Dr. Gosia Delaney MD Status: ADM IN Study:Abscess/Fistula/Sinus Tract Date of Exa m: 11/20/24 Exam# [id number] Ordering Dr: Yakov Shipley MD PROCEDURE: Percutaneous [...] patient became agitated and aggressive. An 8 Norwegian catheter was placed into the gallbladder lumen. Approximately 25 cc of dark brown fluid was aspirated. The patient became more aggressive and pulled the catheter out. The patient was stepping off the table. The procedure was terminated. CT/Abscess/Fistula/Sinus Tract IMPRESSION: Attempted percutaneous cholecystostomy tube placement. The patient was very uncooperative as described. 25 cc of dark brown colored fluid was aspirated. Reading Location: [facility] CC: Dr. Yakov Samano MD; Dr. Gosia Delaney MD ~ Motorcycle Deliverer: Signed [facility] 11-20-2024 History and physi severiano note Note Date/Time November 19, 2024 10:58pm [facility] Medical Records Department [address] [place] [address] H&P Exam - Surgical 11/19/24 2252 MR#: [id number] Acct: [id number] Name: FAHAD KIRK Rep #:[id number] : 1955 69 From: Yakov durán MD PCP: Dr. Gosia Delaney MD Status:REG ER Location: ED HPI - General HPI Narrative FAHAD KIRK, is a 69 M who presents with abdominal pain. Patient reports the pain started yesterday. He has been feeling unwell for a few days. He currently denies any nausea or vomiting but he did vomit once today. [facility] Medical History Alcohol abuse Alcoholism Carotid stenosis, [...] 07/09 01/29 Unknown History mg tablet omega 2-scf-yrp-fish oil 300 1 cap PO BID 02/02/22 [...] details: gym frequency: 3-4 times per week angie/uatsdin: Jain seatbelt use: always ROS Constitutional Constitutional: Denies [...] (Auto) 84.9 H, Lymph % (Auto) 8.8L, Loving % (Auto) 4.3, Eos % (Auto) 1.3, [...] of an acute cardiopulmonary abnormality. Reading Location: [id number] Abdomen/Pelvis CT 11/19/24 20:52 IMPRESSION: Findings worrisome for acute cholecystitis. Of note, there is a small amount offree fluid adjacent to the liver and surrounding the gallbladder. Recommend Surgical consultation +/- ultrasound. Reading Location: [id number] Assessment & Plan Assessment/Plan (1) Acute cholecystitis: [...] for the morning. Yakov Samano MD Pager: [facility] [address] [place] [address], [address] [place] [address] Office: 11/19/242257 <Electronically signed by Yakov Samano MD> Cosigner Signature (if applicable): CC: Dr. Yakov Samano MD; Dr. Gosia Delaney MD~ Signed [facility] Work Phone: 1(212) 290-695007-14-2025 Radiology Diagnostic study note [facility] Imaging Services [address] [place] [address] Abdomen Limited MR#: [id number] Acct: [id number] Name: FAHAD KIRK Rep #: [id number] : 1955 M 69 From: Ashleigh Chan MD PCP: Dr. Gosia Delaney MD Status: ADM IN Study:Abdomen Limited Date of Exam: 11/07 08/01 Exam# [id number] Ordering Dr: Maria Luz Genao DO PROCEDURE: [...] gallbladder, most consistent with cholecystitis. Reading Location: [place] [address] CC: Dr. Gosia Delaney MD; Dr. Kevin Genao DO ~ Motorcycle Deliverer: Signed [facility]07-13-2025 History and physical note [facility] Medical Records Department [address] [place] [address] H&P Exam - Surgical 11/19/242251 MR#: [id number] Acct: [id number] Name: FAHAD KIRK Rep #:[id number] : 1955 69 From: Yakov durán MD PCP: Dr. Gosia Delaney MD Status:REG ER Location: ED HPI - General HPI Narrative FAHAD KIRK, is a 69 M who presents with abdominal pain. Patient reports the pain started yesterday. He has been feeling unwell for a few days. He currently denies any nausea or vomiting but he did vomit once today. [facility] Medical History Alcohol abuse Alcoholism Carotid stenosis, [...] 07/09 01/29 Unknown History mg tablet omega 6-hsx-jly-fish oil 300 1 cap PO BID 02/02/22 [...] details: gym frequency: 3-4 times per week angie/uatsdin: Jain seatbelt use: always ROS Constitutional Constitutional: Denies [...] (Auto) 84.9 H, Lymph % (Auto) 8.8L, Loving % (Auto) 4.3, Eos % (Auto) 1.3, [...] of an acute cardiopulmonary abnormality. Reading Location: [id number] Abdomen/Pelvis CT 11/19/24 20:52 IMPRESSION: Findings worrisome for acute cholecystitis. Of note, there is a small amount offree fluid adjacent to the liver and surrounding the gallbladder. Recommend Surgical consultation +/- ultrasound. Reading Location: [facility] Assessment & Plan Assessment/Plan (1) Acute cholecystitis: [...] for the morning. Yakov Samano MD Pager: [facility] [address] [place] [address], [address] [place] [phone] Office: 11/19/24 8298 Cosigner Signature (if applicable): CC: Dr. Yakov Samano MD; Dr. Gosia Delaney MD~ Signed [facility]07-13-2025 Radiology Diagnostic study note [facility] Imaging Services [address] [place] [address] Abdomen/Pelvis W IV Cont ONLY MR#: [id number] Acct: [id number] Name: FAHAD KIRK Rep #: [id number] : 1955 M 69 From: Chelsie Whitehead MD PCP: Dr. Gosia Delaney MD Status: REG ER Study:Abdomen/Pelvis W IV Cont ONLY Date of E xam: 11/19/24 Exam# [id number] Ordering Dr: Maria Luz Genao DO PROCEDURE: [...] Recommend Surgical consultation +/- ultrasound. Reading Location: [id number] CC: Dr. Gosia Delaney MD; Dr. Kevin Genao DO ~ Motorcycle Deliverer: Signed [facility]07-13-2025 Radiology Diagnostic study note [facility] Imaging Services [address] [place] [address] Chest 1 View (Portable) MR#: [id number] Acct: [id number] Name: FAHAD KIRK Rep #: [id number] : 1955 M 69 From: Chelsie Whitehead MD PCP: Dr. Gosia Delaney MD Status: PRE ER Study:Chest 1 View (Portable) Date of Exam: 11/19/24 Exam# [id number] Ordering Dr: Maria Luz Genao DO PROCEDURE: [...] of an acute cardiopulmonary abnormality. Reading Location: [facility] CC: Dr. Gosia Delaney MD; Dr. Kevin Genao DO ~ Motorcycle Deliverer: Signed [facility]07-02-2025 Evaluation note* Diagnosis Onset Date Resolution Status Admit Date Carotid stenosis, asymptomatic acute November 08, 2024 7:56am Essential tremor chronic November 7:56am Acute cholecystitis acute November 20, 2024 12:30am Gallstone pancreatitis acute Ju ly 2024 12:30am [facility] Work Phone: 1(301) 309-344507-02-2025 Evaluation note* Diagnosis Onset Date Resolution Status Admit Date Carotid stenosis, asymptomatic acute November 08, 2024 7:56am Essential tremor chronic November 7:56am Acute cholecystitis acute November 19, 2024 10:49pm Gallstone pancreatitis acute Ju ly 2024 10:49pm [facility] Work Phone: 1(894) 509-491004-22-2024 NoteHNO ID: [id number] Author: MARY CARMEN LARA MD Service: ? [...] which included preparing to see the patient, cekd-vc-drzf patient care, completing clinical (more content not included)...[facility]04-22-2024 Instructions* Patient Instructions* Mary Carmen Lara [...] people who take drugs that lower cholesterol [place] Indians and people of [place] descent What are the symptoms of gallstones? [...] people who take these drugs. References [employer] [place] of [employer] and Digestive and Kidney Diseases. Gallstones Accessed 03/29/2014. [place] [employer]. Gallstones Accessed 03/29/2014. [employer] [place] [employer] and [employer]estive and Kidney Diseases. ERCP (Endoscopic Retrograde Cholangiopancreatography) Accessed 03/29/2014. Copyright 6828-9063 The [facility]. All rights reserved. This information is provided by the [facility] and is not intended to replace the medical advice of your doctor or health care provider. Please consult your health care provider for advice about a specific medical condition. For additional health information, please contact the Center for Consumer Health Information at the [facility] or toll-free extension [phone]. If you prefer, you may visit [email or web address] or [email or web address]. This document was last reviewed on: [...] laparoscopic cholecystectomy? Less discomfort than regular surgery [place] hospital stay, with a quicker recovery time [...] closed using surgical clips and stitches. References [employer]. Cholecystectomy Accessed 11/15/2015. Society of [place] Gastro[employer] and Endoscopic [employer]. Laparoscopic Gallbladder Removal (Patient Information from [employer] Accessed 11/15/2015. Copyright 9205-6128 The [facility]. All rights reserved This information is provided by the [facility] and is not intended to replace the medical advice of your doctor or health care provider. Please consult your health care provider for advice about a specific medical condition. For additional health information, please contact the Center for Consumer Health Information at the [facility] or toll-free extension [phone]. If you prefer, you may visit [email or web address] or [email or web address]. This document was last reviewed on: 2015 documented in this encounterW[facility]04-[facility]-20[facility] History of Present illness Narrative* Mary [...] which included preparing to see the patient, cbni-tg-ofsf patient care, completing clinical documentation, obtaining and/or [...] Carmen Lara M.D., FACS documented in this encounterW[facility]04-17-2024 NoteHNO ID: [id number] Author: JESSY STAFFORD MD Service: ? Author Type: Physician Type: Progress Notes Filed: 08/28/2023 15:26 Note Text: Fahad Kirk 1955 REFERRING PHYSICIAN: No ref. provider found CHIEF COMPLAINT: New Patient and Abdominal Pain HPI: The patient is a 68 year old male presents with abnormal findings on gallbladder ultrasound. He had presented to [facility] ED with right lower rib pain. [...] a history of (more content not included)... [facility]04-17-2024 History of Present illness Narrative* Jessy Stafford MD - 08/25/2023 3:00 PM EDT Fahad Kirk Jr 1955 REFERRING PHYSICIAN: No ref. provider found CHIEF COMPLAINT: New Patient and Abdominal Pain HPI: The patient is a 68 year old male presents with abnormal findings on gallbladder ultrasound. He had presented to [facility] ED with right lower rib pain. [...] (98.3 F), height 160 cm (5' 3), ovcofu65.2 kg (119 lb 6.4 oz), SpO2 98%. [...] present with him. Will refer patient to [facility] for consideration of gallbladder surgery. The patient states to call , patient's as patient has difficulty hearing, can leave voice mail. I personally made call to [facility] general surgery for them to contact patient [...] records from other medical facilities such as [facility], cnio-go-yxgn patient care, obtaining oral medical history from the patient in this encounter, performing a medically appropriate examination, counseling and educating the patient/family/caregiver, and ordering and/or scheduling of medications/tests/procedures, and completing appropriate medical documentation. Jessy Stafford MD documented in this encounterWy[facility]ot [facility]04-17-2024 Nurse Note* Naila Looney MA - [...] N/A Naila Looney MA documented in this encounterWyandot [facility] Hospital02-24-2024 Discharge summary Author Lionel Ocasio [facility] July 03, 2023 2:51pm Note Date/Time July 03, 2023 12:26pm [facility] Medical Records Department [address] [place] [address] Emergency Department Summary 07/03/23 MR#: [id number] Acct: [id number] Name: FAHAD KIRK Rep #:[id number] : 1955 67 From: Lionel Ocasio MD [...] DAILY 08/05/21 [History Last Taken Unknown] omega 5-xui-zqg-fish oil 300 mg-1,000 mg capsule,delayed release (Fish [...] details: gym frequency: 3-4 times per week angie/uatsdin: Jain seatbelt use: always ROS ROS ED ROS [...] % (Auto) 67.7 Lymph % (Auto) 19.8 Loving % (Auto) 7.2 Eos % (Auto) 4.6 [...] rate of 62 no acute signs of SC or ischemia. Discharge Plan Triage Chief Complaint: [...] mg tablet 500 mg PO DAILY omega 0-unm-kog-fish oil [Fish Oil] 300-1,000 mg capsule,delayed release(DR/EC) [...] your Primary Care Provider. Call [facility] ([phone]) or report to the closest Emergency Room. Call 911 if necessary. 07/03/23 1457 <Electronically signed by Lionel Ocasio MD> Cosigner Signature (if applicable): CC: Dr. Gosia Delaney MD ~ Signed [facility] Work Phone: Evaluation noteNo assessment information available [facility] Work Phone: Evaluation note* Diagnosis Onset Date Resolution Status Carotid stenosis, asymptomatic acute Essential tremor chronic [facility] Work Phone: Evaluation note* Diagnosis Calculus of gallbladder without cholecystitis without obstruction- Primary Calculus of gallbladder without mention of cholecystitis or obstruction documented in this encounter [facility] [place] [facility]* Diagnosis Symptomatic cholelithiasis- Primary Calculus of gallbladder without mention of cholecystitis or obstruction [facility] Diagnosis Onset Date Resolution Status Admit Date Carotid stenosis, asymptomatic acute November 08, 2024 7:56am Essential tremor chronic November 7:56am [facility] Work Phone: Evaluation note* Diagnosis Acute cholecystitis with chronic cholecystitis- Primary Acute and chronic cholecystitis Acute cholecystitis with chronic cholecystitis Acute and chronic cholecystitis documented in this encounter [facility] and [facility] note Author Yakov Samano [facility] Note Date/Time November 19, 2024 10:5 8pm [facility] Medical Records Department [address] [place] [address] H&P Exam - Surgical 11/19/24 2252 MR#: [id number] Acct: [id number] Name: FAHAD KIRK Rep #:[id number] : 1955 69 From: Yakov durán MD PCP: Dr. Gosia Delaney MD Status:REG ER Location: ED HPI - General HPI Narrative FAHAD KIRK, is a 69 M who presents with abdominal pain. Patient reports the pain started yesterday. He has been feeling unwell for a few days. He currently denies any nausea or vomiting but he did vomit once today. [facility] Medical History Alcohol abuse Alcoholism Carotid stenosis, [...] 07/09 01/29 Unknown History mg tablet omega 8-gxz-ppy-fish oil 300 1 cap PO BID 02/02/22 [...] details: gym frequency: 3-4 times per week angie/uatsdin: Jain seatbelt use: always ROS Constitutional Constitutional: Denies [...] (Auto) 84.9 H, Lymph % (Auto) 8.8L, Loving % (Auto) 4.3, Eos % (Auto) 1.3, [...] of an acute cardiopulmonary abnormality. Reading Location: [facility] Abdomen/Pelvis CT 11/19/24 20:52 IMPRESSION: Findings worrisome for acute cholecystitis. Of note, there is a small amount offree fluid adjacent to the liver and surrounding the gallbladder. Recommend Surgical consultation +/- ultrasound. Reading Location: [facility] Assessment & Plan Assessment/Plan (1) Acute cholecystitis: [...] for the morning. Yakov Samano MD Pager: [facility] [address] [place] [address] [address] [place], [address] [place] [address] Office: 11/19/24 1499 <Electronically signed by Yakov Samnao MD> Cosigner Signature (if applicable): CC: Dr. Yakov Samano MD; Dr. Gosia Delaney MD~ Signed [facility] Work Phone: Hospital Discharge instructions Additional [...] your heart and is not a blood clot.[facility] Work Phone: Reason for referral (narrative)No reason for referral information availableWWright-Patterson [facility] Work Phone: Chief Complaint and [...] Gallstone pancreatitis November 19, 2024 1 0:49pm Chief Complaint Admit Date 1 Y FU November 08, 2024 7:56a m ACUTE CHOLECYSTITIS & PANCREATITIS November 19, 2024 10:49pm chest pain November 19, 2024 10:5 2pm ACUTE CHOLECYSTITIS & PANCREATITIS November 21, 2024 2:14pm Chief Complaint Admit Date 1 Y FU November 08, 2024 7:56a m ACUTE CHOLECYSTITIS & PANCREATITIS November 19, 2024 10:49pm chest pain November 19, 2024 10:5 2pm ACUTE CHOLECYSTITIS & PANCREATITIS November 21, 2024 2:14pm FOLLOW UP OF BILATERAL ICA STENOSIS Augu 2024 7:49am Family History No Family History Records Found Relationship Condition Age at Onset Recorded Date/T blaise brother Cardiac disease Unknown Myocardial infarction Unknown father Cardiac disease Unknown Advance Directives No Advanced Directives Records Found Advance Directive Response Recorded Date/ Time Living Will Yes March 30 9:20pm Power of Personalization Specialist Yes March 30, 2017 9:20pm Advance Directive Response Recorded Date/ Time Living Will Yes March 30 10:20pm Power of Personalization Specialist Yes March 30, 2017 10:20pm Advance Directive Response Recorded Date/ Time Living Will No July 03 11:56am Power of Personalization Specialist No July 03, 2023 11:56am Advance Directive Response Recorded Date/ Time Living Will No July 03 12:56pm Do you have a Healthcare Power of Personalization Specialist? No July 03, 2023 12:56pm Advance Directive Response Recorded Date/ Time Living Will No July 03 12:56pm Do you have a Healthcare Power of Personalization Specialist? No July 03, 2023 12:56pm Do you have a Healthcare Power of Personalization Specialist? Yes November 19, 2024 7:51pm Name of Medical Power of Personalization Specialist November 19, 2024 7:51pm Advance Directive Response Recorded Date/ Time Living Will No July 03, 2 024 12:56pm Do you have a Healthcare Pow er of Personalization Specialist? No July 03, 2023 12:56pm Do you have a Healthcare Pow er of Personalization Specialist? Yes November 20, 2024 1:22am Name of Medical Power of Personalization Specialist Fahad asnford III November 20, 2024 1:22am Date Activated Date Inactivated Comments 11/20/2024 8:22 PM 11/23/2024 5:54 PM Question Answer Comments Full Code Order Discussed With: Patient Summary Purpose Additional Source Comments Care Teams [...] MD Attending Provider, Emergency Pro vider Active Digital Photo Printer Relationship Specialty Start Date End Date Gosia Delaney MD [address] [place] [address] PCP - [facility] Medicine 07/26/23 Digital Photo Printer Relationship Specialty Start Date End Date Gosia Delaney MD [address] [place], [place] [address] PCP - [facility] Medicine 07/26/23 Team Status: Active Member Role [...] Attending Provider Active Start: November 19, 2024 Digital Photo Printer Relationship Specialty Start Date End Date Gosia Delaney MD [address] [place] [address] PCP - General Family Medicine 07/26/23 Team Status: Active Member Role/Relationship Status Dates Dr. Gosia Delaney MD Primary Care Provider Active Start: November 21, 2024 Dr. Kevin Genao DO Emergency Provider Active Start: November 21, 2024 Dr. Yakov Samano MD Admit Provider Active Start: November 21, 2024 Dr. Yakov Samano MD Attending Provider Active Start: November 21, 2024 Dr. Yakov Samano MD Other Provider Active Start: November 21, 2024 Team Status: Inactive Member Role/Relationship Status Dates Dr. Gosia Delaney MD Primary Care Provider Active Start: December 04, 2024 End: December 04, 2024 Dr. Gosia Delaney MD Attending Provider Active St art: December 04, 2024 End: December 04, 2024 Dr. Gosia Delaney MD Referring Provider Active St art: December 04, 2024 End: December 04, 2024 Team Status: Active Member Role/Relationship Status Dates Dr. Gosia Delaney MD Primary Care Provider Active Start: December 06, 2024 Dr. Gosia Delaney MD Attending Provider Active St art: December 06, 2024 Dr. Gosia Delaney MD Referring Provider Active St art: December 06, 2024 Team Status: Inactive Member Role/Relationship Status Dates Dr. Gosia Delaney MD Primary Care Provider Active Start: December 06, 2024 End: December 06, 2024 Dr. Gosia Delaney MD Attending Provider Active St art: December 06, 2024 End: December 06, 2024 Dr. Gosia Delaney MD Referring Provider Active St art: December 06, 2024 End: December 06, 2024 Team Status: Inactive Member Role/Relationship Status Dates Dr. Gosia Delaney MD Primary Care Provider Active Start: December 21, 2024 End: December 21, 2024 Dr. Gosia Delaney MD Attending Provider Active St art: December 21, 2024 End: December 21, 2024 Dr. Gosia Delaney MD Referring Provider Active St art: December 21, 2024 End: December 21, 2024 Team Status: Active Member Role/Relationship Status Dates Dr. Gosia Delaney MD Primary Care Provider Active Start: December 25, 2024 Dr. Tuan Foster MD Attending Provider Active Start: December 25, 2024 Dr. Tuan Foster MD Referring Provider Active Start: December 25, 2024 Team Status: Inactive Member Role/Relationship Status Dates Dr. Gosia Delaney MD Primary Care Provider Active Start: December 25, 2024 End: December 25, 2024 Dr. Tuan Foster MD Attending Provider Active Start: December 25, 2024 End: December 25, 2024 Dr. Tuan Foster MD Referring Provider Active Start: December 25, 2024 End: December 25, 2024 Goals (unrecognized section and content) Goals [...] or prosecute any alcohol or drug abuse patient.[facility] the event this information is protected by the Federal Confidentiality of Alcohol and Drug Abuse Patient Records regulations: The Federal rules restrict any use of the information to criminally investigate or prosecute any alcohol or drug abuse patient.[facility] the event this information is protected by the Federal Confidentiality of Alcohol and Drug Abuse Patient Records regulations: The Federal rules restrict any use of the information to criminally investigate or prosecute any alcohol or drug abuse patient.[facility] Reason for Visit (unrecogniz ed section and content) Reason Comments New Patient Abdominal Pain Reason Comments GB Reason Comments New Patient Gallbladder issues (unrecognized sect ion and content) No Status Records FoundNo Status Records FoundNo Status Records FoundNo Status Records Found INFORMATION SOURCE (unrecogn ized section and content) DATE CREATED AUTHOR 08/29/2023 [facility] DATE CREATED AUTHOR AUTHOR'S ORGANIZ ATION 08/31/2023 [facility] DATE CREATED AUTHOR AUTHOR'S ORGANIZ ATION 12/30/2024 [facility] DATE CREATED AUTHOR AUTHOR'S ORGANIZ ATION 01/03/2025 [facility] nter FOR RECORDS PERTAINING TO PATIENTS WHO [...] PRIMARY CLINICAL RECORDS. [facility]. provides no warranty or guarantee of the accuracy or completeness of information in this document.
== END | disposition home or self-care (01) ==
LOC: CT 17:06
PROVIDERS: PCP Family Medicine
DX: Z12.2 Encounter for screening for malignant neoplasm of respiratory organs (principal); F17.210 Nicotine dependence, cigarettes, uncomplicated
CPT/HCPCS: 71271

== ENCOUNTER → 2025-01-24 | Outpatient (CLI) | payer MEDICARE, BC, SELFPAY ==
[2025-01-24 15:45] LABS: Albumin, Serum 4.4 g/dL (3.4-4.8); Anion Gap 14 (5-15); BUN 10 mg/dL (4-19); BUN/Creat Ratio 10.0 RATIO (10-20); Calcium,Total 9.3 mg/dL (7.6-11.0); Carbon Dioxide 22.9 mmol/L (21.0-32.0); Chloride 98 mmol/L (98-108); Glucose 106 mg/dL (70-99); Potassium 3.6 mmol/L (3.3-5.1)
== END | disposition home or self-care (01) ==
LOC: MTLAB 13:59
PROVIDERS: PCP Family Medicine; Referring Provider Internal Medicine Nephrology; Visit Provider Internal Medicine Nephrology
DX: N18.31 Chronic kidney disease, stage 3a (principal)
CPT/HCPCS: 36415; 80069